=== PATIENT | male | born 1955 | race Caucasian/White ===

== ENCOUNTER 2016-04-01 16:57 | Inpatient (IN) | payer OTHER ==
[~2016-04-01] VITALS: Ht 177.8 cm; Wt 188.9 kg
[~2016-04-01 16:57] MED LIST: CIPR-255 PO; FURO-85 PO; GLC500 PO; INSHI7030 SC; INSUINJ17 SC; LISI-725 PO; MCRK20 PO; METF-384 PO; MICO12CR TOP; SIMV40TA4 PO; TYLOTC500 PO; ZNTT/150 PO
[2016-04-01] MEDS ORDERED: SODIUM CHLORIDE 0.9% 1000ML 1,000 ML IV ONE (18:19)
[2016-04-01] MEDS ORDERED: SODIUM CHLORIDE 0.9% 1000ML 1,000 ML IV STA (18:19)
--- NOTE | 2016-04-01 18:28 | EMERGENCY ROOM VISIT NOTE ---
History Report prepared by Ang: Toro Pendleton Under the Supervision of: Dr. Ludwin Canales M.D. First contact with patient: 18:11 Chief Complaint: NEURO SYMPTOMS Stated Complaint: NUMBNESS IN RT LEG & MOUTH,SWEATING,RT KNEE PAIN History of Present Illness The patient is a 60 year old male who presents to the Emergency Room with complaints of persistent right lower leg numbness for the past several days. The patient feels numb from the right knee down to his foot. He fell a few times because his right knee was giving out on him, but denies any trauma. The patient was also experiencing lip and tongue numbness, which is resolved. The patient denies any arm numbness or difficulty speaking or swallowing. The patient notes that he has been feeling sick for the past three days. He complains of feeling febrile, sweaty, and globally weak. He denies any coughing , chest pain, abdominal pain, nausea, vomiting, or diarrhea. He does note that he becomes short of breath with exertion. The patient admits that he does not drink a lot of fluids. He has a history of diabetes and has been having trouble controlling his blood sugar. The patient's BSG reached 485 after eating earlier today. He notes that his BSG sometimes reaches 375 without eating. The patient has not started any new medications and has been compliant with the medications he does take. The patient was immunized for influenza this year. He denies any history of heart disease. He is not on blood thinners. The patient follows up with Dr. Nevarez. He has a history of shingles. Source of History: patient, family Onset: several days Position: leg (right) Quality: numbness Timing: other (persistent) Associated Symptoms: + SOB, + fevers (subjective), + weakness, No abdominal pain, No chest pain, No cough, No diarrhea, No nausea, No vomiting Review of Systems See HPI for pertinent positives & negatives. A total of 10 systems reviewed and were otherwise negative. Past Medical & Surgical Medical Problems: (1) Diabetes mellitus (2) History of CHF (congestive heart failure) Old medical records were reviewed. Nurse's notes were reviewed and I agree with. Family History Diabetes mellitus Social History Smoking Status: Never Smoker Marital Status: single Housing Status: other Occupation Status: retired Current/Historical Medications Scheduled Ergocalciferol (Vitamin D 33738 Unit), 50,000 UNIT PO WK Furosemide (Lasix), 40 MG PO DAILY Insulin Isophane (Human) (Novolin N Relion), 100 UNITS SQ HS Insulin Isophane (Human) (Novolin N Relion), SQ UD Lisinopril (Zestril), 20 MG PO BID Metformin Hcl (Glucophage), 1,000 MG PO BID Mometasone Furoate (Nasal) (Mometasone Furoate), 2 SPRAYS AMBER DAILY Ranitidine (Zantac), 150 MG PO BID Scheduled PRN Albuterol Hfa (Ventolin Hfa), 2 PUFFS INH Q4H PRN for SOB/Wheezing Oxycodone/Acetaminophen 10MG/325MG (Percocet 10MG/325MG), 1 TAB PO Q6 PRN for Pain Allergies Coded Allergies: Sulfa Antibiotics (Verified Allergy, Intermediate, HIVES, 04/01/16) Physical Exam Vital Signs Date Time Temp Pulse Resp B/P Pulse Ox O2 Delivery O2 Flow Rate FiO2 04/01/16 20:42 76 20 182/81 95 Room Air 04/01/16 20:02 71 18 167/69 95 Room Air 04/01/16 18:55 71 04/01/16 18:30 74 18 165/69 95 04/01/16 17:09 37.0 82 20 152/74 98 Room Air Physical Exam General: Non ill-appearing middle aged male in no acute distress. HEENT: Normal cephalic atraumatic. Pupils are equal round and reactive to light. Extraocular movements are intact. Oropharynx is pink with moist mucous membranes. No swelling of the mouth lips or tongue. Neck: Supple with a midline trachea. No meningeal signs or stiffness, no JVD or bruits. No Stridor. Chest: Clear to auscultation bilaterally. No wheezes or rhonchi. No increased work of breathing. Some scarring present from recent shingles rash. Heart: regular rate and rhythm. Abdomen: Soft nontender, nondistended without rebound guarding or rigidity. Extremities: No cyanosis clubbing or edema. No calf tenderness or assymetry Spine/Back. Non tender to palpation. No CVA tenderness Skin: Good turgor. Chronic skin changes to his legs. Neurologic exam: Cranial nerves two through 12 are intact. Subjective decreased sensation of his right leg below the knee compared to the left. Medical Decision & Procedures ER Provider Diagnostic Interpretation: Radiology results as stated below per my review and radiologist interpretation: CHEST ONE VIEW PORTABLE CLINICAL HISTORY: Chest pain. COMPARISON STUDY: Chest radiograph December 01, 2015. FINDINGS: This exam is compromised by suboptimal penetration related to body habitus and portable technique. There is no evidence of pulmonary edema. There is no lobar consolidation. Cardiomegaly is unchanged. IMPRESSION: No acute findings. No change in appearance of the chest. Stable cardiomegaly. Electronically signed by: Alton Junior M.D. 04/01/2016 6:39 PM Dictated Date/Time: 04/01/2016 6:[address] OF THE HEAD WITHOUT CONTRAST CLINICAL HISTORY: Weakness. Right leg numbness. COMPARISON STUDY: No previous studies for comparison. CT DOSE: 687.98 mGy.cm TECHNIQUE: Helical axial images of the head were obtained without IV contrast. Automated exposure control was utilized for the study. FINDINGS: No acute intracranial hemorrhage, midline shift or mass effect is present. Ventricular system is normal. The basilar cisterns are patent. There are no extra axial collections. Scattered white matter hypodensities are noted including a 1.3 cm hypodensity within the periventricular left frontal lobe. There are no findings to suggest acute dural sinus thrombosis or acute territorial infarct. There are no significant calvarial abnormalities. There is mild polypoid mucosal thickening of the left maxillary sinus. IMPRESSION: 1. No acute intracranial hemorrhage or mass effect. 2. 1.3 cm hypodensity within the periventricular left frontal lobe. This likely reflects small vessel disease although an age indeterminate infarct could appear similar. Electronically signed by: Alton Junior M.D. 04/01/2016 8:51 PM Dictated Date/Time: 04/01/2016 8:46 PM Laboratory Results 04/01/16 18:39 Red Blood Count 5.50, Mean Corpuscular Volume 84.9, Mean Corpuscular Hemoglobin 28.5, Mean Corpuscular Hemoglobin Concent 33.6, Mean Platelet Volume 11.0, Neutrophils (%) (Auto) 73.4, Lymphocytes (%) (Auto) 13.6, Monocytes (%) (Auto) 11.7, Eosinophils (%) (Auto) 0.7, Basophils (%) (Auto) 0.2, Neutrophils # (Auto ) 8.41, Lymphocytes # (Auto) 1.56, Monocytes # (Auto) 1.34, Eosinophils # (Auto ) 0.08, Basophils # (Auto) 0.02 04/01/16 18:39 Test 04/01/16 18:33 04/01/16 18:39 04/01/16 18:42 04/01/16 18:48 Influenza Type A Antigen Neg for Influ A (NEG) Influenza Type B Antigen Neg for Influ B (NEG) White Blood Count 11.46 K/uL (4.8-10.8) Red Blood Count 5.50 M/uL (4.7-6.1) Hemoglobin 15.7 g/dL (14.0-18.0) Hematocrit 46.7 % (42-52) Mean Corpuscular Volume 84.9 fL (80-100) Mean Corpuscular Hemoglobin 28.5 pg (25-34) Mean Corpuscular Hemoglobin Concent 33.6 g/dl (32-36) Platelet Count 250 K/uL (130-400) Mean Platelet Volume 11.0 fL (7.4-10.4) Neutrophils (%) (Auto) 73.4 % Lymphocytes (%) (Auto) 13.6 % Monocytes (%) (Auto) 11.7 % Eosinophils (%) (Auto) 0.7 % Basophils (%) (Auto) 0.2 % Neutrophils # (Auto) 8.41 K/uL (1.4-6.5) Lymphocytes # (Auto) 1.56 K/uL (1.2-3.4) Monocytes # (Auto) 1.34 K/uL (0.11-0.59) Eosinophils # (Auto) 0.08 K/uL (0-0.5) Basophils # (Auto) 0.02 K/uL (0-0.2) RDW Standard Deviation 43.0 fL (36.4-46.3) RDW Coefficient of Variation 13.8 % (11.5-14.5) Immature Granulocyte % (Auto) 0.4 % Immature Granulocyte # (Auto) 0.05 K/uL (0.00-0.02) Anion Gap 10.0 mmol/L (3-11) Est Creatinine Clear Calc Drug Dose 128.9 ml/min Estimated GFR () 95.1 Estimated GFR (Non- 82.0 BUN/Creatinine Ratio 14.9 (10-20) Calcium Level 8.7 mg/dl (8.5-10.1) Magnesium Level 2.3 mg/dl (1.8-2.4) Total Bilirubin 0.2 mg/dl (0.2-1) Direct Bilirubin < 0.1 mg/dl (0-0.2) Aspartate Amino Transf (AST/SGOT) 39 U/L (15-37) Alanine Aminotransferase (ALT/SGPT) 34 U/L (12-78) Alkaline Phosphatase 63 U/L (45-117) Total Protein 7.8 gm/dl (6.4-8.2) Albumin 3.3 gm/dl (3.4-5.0) Lipase 236 U/L (73-393) Bedside Lactic Acid Venous 2.35 mmol/L (0.90-1.70) Bedside Troponin I 0.000 ng/ml (0-0.045) Laboratory studies as stated above per my review. Medications Administered Medications (Trade) Dose Ordered Sig/Fam Route Start Time Stop Time Status Last Admin Dose Admin Sodium Chloride 1,000 ml @ 999 mls/hr Q1H1M STAT IV 04/01/16 18:19 04/01/16 19:19 DC 04/01/16 18:40 999 MLS/HR Sodium Chloride (Nss 1000ml) 1,000 ml @ 200 mls/hr Q5H ONCE IV 04/01/16 18:19 04/01/16 23:18 DC 04/01/16 19:58 200 MLS/HR Dextrose (Dextrose 50% 50ML Syringe) 50 ml NOW STAT IV 04/01/16 18:33 04/01/16 18:35 DC 04/01/16 18:37 50 ML Piperacillin Sod/ Tazobactam Sod (Zosyn Iv) 4.5 gm NOW STAT IV 04/01/16 19:12 04/01/16 19:13 DC 04/01/16 19:58 4.5 GM Dextrose 50 ml 50 ml NOW STAT IV 04/01/16 21:47 04/01/16 21:48 DC 04/01/16 21:49 50 ML Potassium Chloride/Dextrose/ Sod Cl (D5nss + 20meq KCl) 1,000 ml @ 125 mls/hr Q8H IV 04/01/16 21:45 05/01/16 21:44 04/01/16 22:01 125 MLS/HR ECG Indication: weakness Rate (beats per minute): 75 Rhythm: normal sinus Findings: 1st degree AV block, RBBB, no acute ischemic change, no ectopy Comparison ECG Date: 10 August 2014 Change: no significant change ED Course 1811: Past medical records reviewed. The patient was evaluated in room C2b, and a complete history and physical examination were performed. 1818: NSS 1000 ml @ 200 mls/hr, NSS 1000 ml @ 999 mls/hr. 1832: Dextrose 50% 50 ml IV. 1834: Updated the patient. 1902: The patient is starting to feel better. 1911: Zosyn 4.5 gm IV. 2009: [facility] the [facility] The [facility] be [facility]. 2010: Updated the patient. Medical Decision Differential diagnosis includes infection, influenza, sepsis, arrhythmia, diabetic emergency, central neurologic process, electrolyte or metabolic abnormality.l This patient comes in as described above. he doesn't feel well has multiple different complaints. he has had a fever and just felt generally weak for about 3 days. he's also had some tingling in his right leg below the knee and maybe around his mouth at one point. He feels like his knee is giving out on the right. He is a diabetic as well as blood sugars have been high at home. IV access established and was hydrated with with IV normal saline blood cultures were obtained blood sugar was obtained and a fingerstick. Chest x-ray , EKG, and multiple blood testing was obtained. He was reassessed frequently. Shortly after evaluating him, he got diaphoretic rechecked her blood sugar and it was in the 50s he is given amp D50 and felt better. His EKG does not suggest acute coronary syndrome or arrhythmia his white count is elevated. His lactic acid is also mildly elevated. He was given hydration. His right leg look normal initially but started looking a little red and he could have a cellulitis he was given Zosyn 4.5 g IV. CAT scan of his head shows no acute findings there is a questionable frontal lobe finding for old infarct per potentially. He is complaints of tingling in the right leg just below the knee . he is not a TPA candidate due to being well outside the time window and his mild symptoms. He has no significant electrolyte or metabolic abnormalities besides be hypoglycemic. He will be admitted for further treatment and evaluation. He was seen by Dr. Castro in the emergency department. Consults Time Called: 1999 Consulting Physician: Dr[facility] Return[facility] Call: 2009 2009: Discussed the case with Dr. [facility] The patient will be evaluated. Impression Primary Impression: Sepsis Additional Impressions: Weakness Hypoglycemia Cellulitis Scribe Attestation The scribe's documentation has been prepared under my direction and personally reviewed by me in its entirety. I confirm that the note above accurately reflects all work, treatment, procedures, and medical decision making performed by me. Departure Information Dispostion Being Evaluated By Hospitalist Referrals Joe Nevarez M.D. (PCP) Patient Instructions My [facility] Problem Qualifiers
[2016-04-01] MEDS ORDERED: DEXTROSE 50% 50 ML SYR IV STA ×2 (18:33→21:47)
--- NOTE | 2016-04-01 18:40 | DIAGNOSTIC IMAGING REPORT ---
CHEST ONE VIEW PORTABLE CLINICAL HISTORY: Chest pain. COMPARISON STUDY: Chest radiograph December 01, 2015. FINDINGS: This exam is compromised by suboptimal penetration related to body habitus and portable technique. There is no evidence of pulmonary edema. There is no lobar consolidation. Cardiomegaly is unchanged. IMPRESSION: No acute findings. No change in appearance of the chest. Stable cardiomegaly. Electronically signed by: Alton Junior M.D. 04/01/2016 6:39 PM Dictated Date/Time: 04/01/2016 6:38 PM
[2016-04-01 18:56] LABS: BASO % 0.2 %; BASO ABS # 0.02 K/uL (0-0.2); COMPLETE YES; EOS % 0.7 %; HEMATOCRIT 46.7 % (42-52); IG% 0.4 %; LYMPH % 13.6 %; LYMPH ABS # 1.56 K/uL (1.2-3.4); MEAN CELL VOLUME 84.9 fL (80-100); MEAN CORPUSCULAR HEMOGLOBIN 28.5 pg (25-34); MEAN CORPUSCULAR HGB CONC 33.6 g/dl (32-36); MONO % 11.7 %; NEUT % 73.4 %; PLATELET COUNT 250 K/uL (130-400); WHITE BLOOD COUNT 11.46 K/uL (4.8-10.8)
[2016-04-01] MEDS ORDERED: PIPERACILLIN/TAZOBACTAM 4.5 GM/100ML D5W IV STA (19:12)
[2016-04-01] MEDS ORDERED: INSU0.01 SQ ×2 (19:19)
[2016-04-01] MEDS ORDERED: FURO40TA3 PO (19:19)
[2016-04-01] MEDS ORDERED: ERGO500037 PO (19:19)
[2016-04-01] MEDS ORDERED: VNTHFA/IN INH (19:19)
[2016-04-01] MEDS ORDERED: OXYC-106 PO (19:19)
[2016-04-01] MEDS ORDERED: MOME6000 NAE (19:19)
[2016-04-01 19:28] LABS: ALKALINE PHOSPHATASE 63 U/L (45-117); ALT/SGPT 34 U/L (12-78); AST/SGOT 39 U/L (15-37); BLOOD UREA NITROGEN 15 mg/dl (7-18); BUN/CREATININE RATIO 14.9 (10-20); CALCIUM 8.7 mg/dl (8.5-10.1); CARBON DIOXIDE 28 mmol/L (21-32); CHLORIDE 102 mmol/L (98-107); CKMB/CK RATIO 1.3 (0-3.0); GLUCOSE 45 mg/dl (70-99); POTASSIUM 3.5 mmol/L (3.5-5.1); SODIUM 140 mmol/L (136-145)
--- NOTE | 2016-04-01 20:52 | DIAGNOSTIC IMAGING REPORT ---
CT OF THE HEAD WITHOUT CONTRAST CLINICAL HISTORY: Weakness. Right leg numbness. COMPARISON STUDY: No previous studies for comparison. CT DOSE: 687.98 mGy.cm TECHNIQUE: Helical axial images of the head were obtained without IV contrast. Automated exposure control was utilized for the study. FINDINGS: No acute intracranial hemorrhage, midline shift or mass effect is present. Ventricular system is normal. The basilar cisterns are patent. There are no extra axial collections. Scattered white matter hypodensities are noted including a 1.3 cm hypodensity within the periventricular left frontal lobe. There are no findings to suggest acute dural sinus thrombosis or acute territorial infarct. There are no significant calvarial abnormalities. There is mild polypoid mucosal thickening of the left maxillary sinus. IMPRESSION: 1. No acute intracranial hemorrhage or mass effect. 2. 1.3 cm hypodensity within the periventricular left frontal lobe. This likely reflects small vessel disease although an age indeterminate infarct could appear similar. Electronically signed by: Alton Junior M.D. 04/01/2016 8:51 PM Dictated Date/Time: 04/01/2016 8:46 PM
[2016-04-01] MEDS ORDERED: DEXTROSE 50% 50 ML SYR ONE (21:43)
[2016-04-01] MEDS ORDERED: GLUCOSE 10 TABS/TUBE PO PRN (22:00)
[2016-04-01] MEDS ORDERED: ACETAMINOPHEN 325 MG TAB PO PRN (22:00)
[2016-04-01] MEDS ORDERED: GLUCOSE 40% GEL 15 GM TUBE PO PRN (22:00)
[2016-04-01] MEDS ORDERED: ZOLPIDEM TARTRATE 5 MG TAB PO PRN (22:00)
[2016-04-01] MEDS ORDERED: ALUMINUM/MAGNESIUM/SIMETH (MAALOX MAX) 30 ML UDC PO PRN (22:00)
[2016-04-01] MEDS ORDERED: NITROGLYCERIN 0.4 MG SL PER TAB CHARGE SL PRN (22:00)
[2016-04-01] MEDS ORDERED: MAGNESIUM HYDROXIDE SUSP 30 ML UDC PO PRN (22:00)
[2016-04-01] MEDS ORDERED: DEXTROSE 50% 50 ML SYR IV PRN (22:00)
[2016-04-01] MEDS ORDERED: LORAZEPAM 2 MG/ML 1 ML VIAL IV PRN (22:00)
[2016-04-01] MEDS ORDERED: GLUCAGON FOR INJ 1 MG VIAL SQ PRN (22:00)
[2016-04-01] MEDS ORDERED: DiphenhydrAMINE HCL 50 MG/ML VIAL IV PRN (22:00)
[2016-04-01] MEDS ORDERED: PROMETHAZINE HCL INJ 12.5 MG in SODIUM CHLORIDE 0.9% 50ML 50 ML IV PRN (22:00)
[2016-04-01] MEDS ORDERED: ONDANSETRON INJ 2 MG/ML 2 ML VIAL IV PRN (22:00)
[2016-04-01] MEDS: D5NSS + 20MEQ KCL 1,000 ML IV SCH (22:01)
[2016-04-01 22:12] LABS: MAGNESIUM 2.3 mg/dl (1.8-2.4)
[2016-04-01 22:13] LABS: ISTAT ARTERIAL BLOOD GAS HCO3 26 meq/L (19-24); ISTAT ARTERIAL BLOOD GAS PCO2 47 mmHg (35-46); ISTAT ARTERIAL BLOOD GAS PO2 85 mmHg (80-95); ISTAT ARTERIAL BLOOD GAS pH 7.35 (7.35-7.45); ISTAT CARBON DIOXIDE 27 mEq/l (24-31)
[2016-04-01 22:52] LABS: CKMB/CK RATIO 1.5 (0-3.0)
[2016-04-02] VITALS (7 sets, daily range): BP systolic 121–158; BP diastolic 75–91; PULSE 80–96; TEMP 36.4–37; O2SAT 92–98; BMI 59.0
--- NOTE | 2016-04-02 02:42 | History and Physical ---
History & Physical Date & Time of Service: Apr 02, 2016 at 02:30 Chief Complaint: Hypoglycemia, Weakness Primary Care Physician: Joe Nevarez M.D. History of Present Illness Source: patient, family The patient is a 60-year-old male brought to the emergency department with report of right lower leg numbness for the past several days, resolved lip and tongue numbness and intermittent disorientation. He has also in general been feeling febrile, sweaty and generally weak and sick over the past several days. He has been having trouble controlling his diabetic sugar levels, reporting that his blood sugar was as high as 485 today after eating. He also has a resolving case of shingles along his right lateral abdominal area. Past Medical/Surgical History Medical Problems: (1) Diabetes mellitus Status: Chronic (2) History of CHF (congestive heart failure) Status: Chronic Family History Diabetes mellitus Social History Smoking Status: Never Smoker Smokeless Tobacco Use: No Alcohol Use: none Drug Use: none Marital Status: single Occupational Status: retired Immunizations History of Influenza Vaccine: Yes History of Tetanus Vaccine?: Yes Tetanus Immunization Date: Aug 28, 2007 History of Pneumococcal: Yes History of Hepatitis B Vaccine: No Multi-Drug Resistant Organisms History of MDRO: No Allergies Coded Allergies: Sulfa Antibiotics (Verified Allergy, Intermediate, HIVES, 04/01/16) Home Medications Scheduled Ergocalciferol (Vitamin D 20462 Unit), 50,000 UNIT PO WK Furosemide (Lasix), 40 MG PO DAILY Insulin Isophane (Human) (Novolin N Relion), 100 UNITS SQ HS Insulin Isophane (Human) (Novolin N Relion), SQ UD Lisinopril (Zestril), 20 MG PO BID Metformin Hcl (Glucophage), 1,000 MG PO BID Mometasone Furoate (Nasal) (Mometasone Furoate), 2 SPRAYS AMBER DAILY Ranitidine (Zantac), 150 MG PO BID Scheduled PRN Albuterol Hfa (Ventolin Hfa), 2 PUFFS INH Q4H PRN for SOB/Wheezing Oxycodone/Acetaminophen 10MG/325MG (Percocet 10MG/325MG), 1 TAB PO Q6 PRN for Pain Review of Systems The patient denies chest pain, palpitations, shortness of breath, cough, lower extremity swelling, vision change, hearing change, sore throat, fevers, chills, weight change, vomiting, abdominal pain, pelvic pain, blood in urine or stool, dysuria, urinary frequency or urgency, headache, memory loss, rash, abnormal bruising or bleeding, imbalance, focal weakness, arthralgias or myalgias, back or neck pain, night sweats, or allergy symptoms. The review of systems is otherwise negative other than for that already noted above, and at least 10 systems have been reviewed. Physical Exam Vital Signs Date Time Temp Pulse Resp B/P Pulse Ox O2 Delivery O2 Flow Rate FiO2 04/02/16 00:55 76 20 181/82 95 Room Air 04/01/16 23:07 76 20 178/78 95 Room Air 04/01/16 22:02 76 20 181/78 95 Room Air 04/01/16 20:42 76 20 182/81 95 Room Air 04/01/16 20:02 71 18 167/69 95 Room Air 04/01/16 18:55 71 04/01/16 18:30 74 18 165/69 95 04/01/16 17:09 37.0 82 20 152/74 98 Room Air The patient is awake, well-developed and adequately nourished, alert and oriented 3, normocephalic and atraumatic, lying in bed , with intermittent episodes of sweating and disorientation. HEENT--PERRL, EOMI, mucous membranes and oropharynx dry. Neck--supple, no JVD or bruits, thyroid normal, trachea midline, no adenopathy. Heart--normal S1 and S2, no extra beats, no murmurs, rubs or gallops. Lungs--clear bilaterally with good air movement, no respiratory distress, no accessory muscle use. Abdomen--normal bowel sounds and soft, nontender and nondistended, no hernias or masses, no organomegaly and morbidly obese. Extremities--no cyanosis, clubbing or edema. There are good distal pulses b/l. Dermatologic--normal skin turgor, normal color, warm and dry, no abnormal lymph nodes, no rash. Neurologic--cranial nerves II through XII grossly intact, motor and sensory examination normal. Rheumatologic--normal range of motion, nontender, muscles and joints. Psychiatric--normal affect. Diagnostics Laboratory Results Results Past 24 Hours Test 04/01/16 18:33 04/01/16 18:35 04/01/16 18:39 04/01/16 18:42 Range/Units Bedside Glucose 51 47 70-99 mg/dl Influenza Type A Antigen Neg for Influ A NEG Influenza Type B Antigen Neg for Influ B NEG White Blood Count 11.46 4.8-10.8 K/uL Red Blood Count 5.50 4.7-6.1 M/uL Hemoglobin 15.7 14.0-18.0 g/dL Hematocrit 46.7 42-52 % Mean Corpuscular Volume 84.9 80-100 fL Mean Corpuscular Hemoglobin 28.5 25-34 pg Mean Corpuscular Hemoglobin Concent 33.6 32-36 g/dl Platelet Count 250 130-400 K/uL Mean Platelet Volume 11.0 7.4-10.4 fL Neutrophils (%) (Auto) 73.4 % Lymphocytes (%) (Auto) 13.6 % Monocytes (%) (Auto) 11.7 % Eosinophils (%) (Auto) 0.7 % Basophils (%) (Auto) 0.2 % Neutrophils # (Auto) 8.41 1.4-6.5 K/uL Lymphocytes # (Auto) 1.56 1.2-3.4 K/uL Monocytes # (Auto) 1.34 0.11-0.59 K/uL Eosinophils # (Auto) 0.08 0-0.5 K/uL Basophils # (Auto) 0.02 0-0.2 K/uL RDW Standard Deviation 43.0 36.4-46.3 fL RDW Coefficient of Variation 13.8 11.5-14.5 % Immature Granulocyte % (Auto) 0.4 % Immature Granulocyte # (Auto) 0.05 0.00-0.02 K/uL Sodium Level 140 136-145 mmol/L Potassium Level 3.5 3.5-5.1 mmol/L Chloride Level 102 98-107 mmol/L Carbon Dioxide Level 28 21-32 mmol/L Anion Gap 10.0 3-11 mmol/L Blood Urea Nitrogen 15 7-18 mg/dl Creatinine 1.00 0.60-1.40 mg/dl Est Creatinine Clear Calc Drug Dose 128.9 ml/min Estimated GFR () 95.1 Estimated GFR (Non- 82.0 BUN/Creatinine Ratio 14.9 10-20 Random Glucose 45 70-99 mg/dl Calcium Level 8.7 8.5-10.1 mg/dl Magnesium Level 2.3 1.8-2.4 mg/dl Total Bilirubin 0.2 0.2-1 mg/dl Direct Bilirubin < 0.1 0-0.2 mg/dl Aspartate Amino Transf (AST/SGOT) 39 15-37 U/L Alanine Aminotransferase (ALT/SGPT) 34 12-78 U/L Alkaline Phosphatase 63 45-117 U/L Total Creatine Kinase 412 39-308 U/L Creatine Kinase MB 5.3 0.5-3.6 ng/ml Creatine Kinase MB Ratio 1.3 0-3.0 Total Protein 7.8 6.4-8.2 gm/dl Albumin 3.3 3.4-5.0 gm/dl Lipase 236 73-393 U/L Bedside Lactic Acid Venous 2.35 0.90-1.70 mmol/L Test 04/01/16 18:46 04/01/16 18:48 04/01/16 21:42 04/01/16 21:58 Range/Units Bedside Glucose 129 40 70-99 mg/dl Bedside Troponin I 0.000 0-0.045 ng/ml Bedside Blood Gas pH (LAB) 7.35 7.35-7.45 Bedside Blood Gas pCO2 (LAB) 47 35-46 mmHg Bedside Blood Gas pO2 (LAB) 85 80-95 mmHg Bedside Blood Gas HCO3 (LAB) 26 19-24 meq/L Bedside Blood Gas Total CO2 27 24-31 mEq/l Bedside Blood Gas Base Excess (LAB) 0.0 -9-1.8 meq/L Bedside Blood Gas O2 Saturation 96.0 90-95 % Test 04/01/16 22:05 04/01/16 22:20 04/01/16 22:46 Range/Units Bedside Glucose 105 116 70-99 mg/dl Total Creatine Kinase 438 39-308 U/L Creatine Kinase MB 6.5 0.5-3.6 ng/ml Creatine Kinase MB Ratio 1.5 0-3.0 Troponin I < 0.015 0-0.045 ng/ml Microbiology Results 04/01/16 Blood Culture, Received Pending 04/01/16 Blood Culture, Received Pending Diagnostic Radiology Patient Name: KELBYALEXIS Pena JR Unit Number: [id number] Dictated: 04/01/162045 Transcribed: 04/01/162045 JA Printed Date/Time: [~ rep prt dt]/[~ rep prt tm] [~ rep ct labl] - [~ rep ct ivnm] [facility] [place] [address] Dictated: 04/01/162045 Transcribed: 04/01/162045 JA Printed Date/Time: [~ rep prt dt]/[~ rep prt tm] [~ rep ct labl] - [~ rep ct ivnm] CT OF THE HEAD WITHOUT CONTRAST CLINICAL HISTORY: Weakness. Right leg numbness. COMPARISON STUDY: No previous studies for comparison. CT DOSE: 687.98 mGy.cm TECHNIQUE: Helical axial images of the head were obtained without IV contrast. Automated exposure control was utilized for the study. FINDINGS: No acute intracranial hemorrhage, midline shift or mass effect is present. Ventricular system is normal. The basilar cisterns are patent. There are no extra axial collections. Scattered white matter hypodensities are noted including a 1.3 cm hypodensity within the periventricular left frontal lobe. There are no findings to suggest acute dural sinus thrombosis or acute territorial infarct. There are no significant calvarial abnormalities. There is mild polypoid mucosal thickening of the left maxillary sinus. IMPRESSION: 1. No acute intracranial hemorrhage or mass effect. 2. 1.3 cm hypodensity within the periventricular left frontal lobe. This likely reflects small vessel disease although an age indeterminate infarct could appear similar. Electronically signed by: Alton Junior M.D. 04/01/2016 8:51 PM Dictated Date/Time: 04/01/2016 8:46 PM The status of this report is Signed. Draft = Not yet reviewed or approved by Radiologist. Signed = Reviewed and approved by Radiologist. <AttendingPhy></AttendingPhy> <FamilyPhy>Joe Nevarez M.D.</FamilyPhy > <PrimaryPhy>Joe Nevarez M.D.</PrimaryPhy> <UnitNumber>[id number]</ UnitNumber> <VisitNumber>[id number]</VisitNumber> <PatientName>ALEXIS LAMA JR</PatientName> <DateOfBirth>1955</DateOfBirth> <Location>[facility]</ Location> <ServiceDate>04/01/16</ServiceDate> <MNE>ESINDI</MNE> <OrderingPhy> Ludwin Canales M.D.</OrderingPhy> <OrderingPhyMNE>f rep ord dr eddy</ OrderingPhyMNE> <DictatingPhyMNE>f rep dict dr eddy</DictatingPhyMNE> <CCListMNE> f rep ct mne</CCListMNE> <AdmittingPhyMNE>f pt admit dr eddy</AdmittingPhyMNE> < AttendingPhyMNE>f pt attend dr eddy</AttendingPhyMNE> <ConsultingPhyMNE>f pt consult dr eddy</ConsultingPhyMNE> <FamilyPhyMNE>f pt fam dr eddy</FamilyPhyMNE> <OtherPhyMNE>f pt other dr eddy</OtherPhyMNE> < PrimaryPhyMNE>f pt prim care dr eddy</PrimaryPhyMNE> <ReferringPhyMNE>f pt referring dr eddy</ReferringPhyMNE> Patient Name: ALEXIS LAMA JR Unit Number: [id number] Dictated: 04/01/161837 Transcribed: 04/01/161837 VAUGHN Printed Date/Time: [~ rep prt dt]/[~ rep prt tm] [~ rep ct labl] - [~ rep ct ivnm] [facility] [place] [address] Dictated: 04/01/161837 Transcribed: 04/01/161837 VAUGHN Printed Date/Time: [~ rep prt dt]/[~ rep prt tm] [~ rep ct labl] - [~ rep ct ivnm] [~ rep ct add3]] CHEST ONE VIEW PORTABLE CLINICAL HISTORY: Chest pain. COMPARISON STUDY: Chest radiograph December 01, 2015. FINDINGS: This exam is compromised by suboptimal penetration related to body habitus and portable technique. There is no evidence of pulmonary edema. There is no lobar consolidation. Cardiomegaly is unchanged. IMPRESSION: No acute findings. No change in appearance of the chest. Stable cardiomegaly. Electronically signed by: Alton Junior M.D. 04/01/2016 6:39 PM Dictated Date/Time: 04/01/2016 6:38 PM The status of this report is Signed. Draft = Not yet reviewed or approved by Radiologist. Signed = Reviewed and approved by Radiologist. <AttendingPhy></AttendingPhy> <FamilyPhy>Joe Nevarez M.D.</FamilyPhy > <PrimaryPhy>oJe Nevarez M.D.</PrimaryPhy> <UnitNumber>[id number]</ UnitNumber> <VisitNumber>[id number]</VisitNumber> <PatientName>ALEXIS LAMA JR</PatientName> <DateOfBirth>1955</DateOfBirth> <Location>[facility]</ Location> <ServiceDate>04/01/16</ServiceDate> <MNE>ESINDI</MNE> <OrderingPhy> Ludwin Canales M.D.</OrderingPhy> <OrderingPhyMNE>f rep ord dr eddy</ OrderingPhyMNE> <DictatingPhyMNE>f rep dict dr eddy</DictatingPhyMNE> <CCListMNE> f rep ct surjit</CCListMNE> <AdmittingPhyMNE>f pt admit dr eddy</AdmittingPhyMNE> < AttendingPhyMNE>f pt attend dr eddy</AttendingPhyMNE> <ConsultingPhyMNE>f pt consult dr eddy</ConsultingPhyMNE> <FamilyPhyMNE>f pt fam dr eddy</FamilyPhyMNE> <OtherPhyMNE>f pt other dr eddy</OtherPhyMNE> < PrimaryPhyMNE>f pt prim care dr eddy</PrimaryPhyMNE> <ReferringPhyMNE>f pt referring dr eddy</ReferringPhyMNE> EKG EKG shows normal sinus rhythm at 75 bpm, with first-degree heart block, right bundle branch block, left axis deviation, and no acute ST-T changes. Impression Assessment and Plan Hypoglycemia/insulin requiring diabetes mellitus--the patient had a number of episodes of sweating with disorientation and fatigue while in the emergency department there were associated with low blood sugar. He has been on Novolin and 100 units subcutaneous at bedtime, and reports a few months ago he was placed on regular insulin which she's been taking 100 units of regular at breakfast then uses a sliding scale for later on in the day. He recently had changed over to a high protein diet with considerable restriction and calorie intake without talking to his PCP, was likely has contributed to events of low blood sugar. He will be admitted to the telemetry unit for close monitoring. Will hold his Novolin N 100 units at bedtime, his regular insulin 100 units in the morning at breakfast, and his regular sliding scale throughout the day. He' ll be placed on Accu-Cheks before meals and at bedtime with NovoLog coverage. He has received an amp of D50 in the ED, has been given several sandwiches, and has been placed on D5 normal saline with potassium chloride 20 mEq at 125 ML's per hour. The question is whether the patient may have given himself some additional insulin inadvertently while disoriented which may have made his sugars significantly lower. Will also hold metformin 1000 mg by mouth twice a day. Right lower extremity numbness/1.3 cm left frontal lobe indeterminate lesion--we 'll order an MRI the brain to further assess the possibility of acute/subacute infarct. If this is negative, he will need a workup to look for a lower extremity radiculopathy, although he denies any low back pain. Hypertension/CHF continue lisinopril 20 mg by mouth twice a day. Hold furosemide 40 mg by mouth daily. GERD--continue ranitidine 150 mg by mouth twice a day. Seasonal allergy--Flonase nasal spray 2 sprays each nostril daily. Level of Care Telemetry Advanced Directives Existing Advance Directive: No Existing Living Will: No Existing Power of Optics Engineer: No Resuscitation Status FULL RESUSCITATION VTE Prophylaxis VTE Risk Assessment Done? Y/N: Yes Risk Level: Moderate Given or contraindicated: SCD's Social Service Consult None Apply
[2016-04-02] MEDS: MoRPHine SULFATE 2 MG/ML CARP IV PRN ×2 (03:50→07:35)
--- NOTE | 2016-04-02 06:11 | DIAGNOSTIC IMAGING REPORT ---
MRI OF THE BRAIN WITHOUT AND WITH IV CONTRAST CLINICAL HISTORY: Weakness, right leg numbness, abnormal CT scan with left frontal lobe lesion COMPARISON STUDY: CT scan dated 04/01/2016 TECHNIQUE: MRI of the brain was performed from the vertex to the skull base utilizing various T1 and T2 weighted sequences. Following the IV administration of 17.5 mL of Gadavist contrast, additional enhanced images were obtained. FINDINGS: Sagittal T1, axial diffusion, proton density and T2 weighted axial, coronal FLAIR, and pre and post axial T1-weighted images were acquired. These were supplemented with post gadolinium coronal T1 weighted images. No intra or extra-axial mass lesions are visualized. Axial diffusion-weighted images reveal no evidence of acute or subacute infarction. There is no evidence of ventricular dilatation. Proton density T2-weighted and FLAIR images reveal scattered foci of increased T2 signal within the white matter, likely on a small vessel basis. There are no abnormal flow voids. There is no evidence of pathologic enhancement. No frontal lobe masses or acute infarcts are visualized. IMPRESSION: No acute intracranial findings. No evidence of intracranial mass. No evidence of acute or subacute infarction. Electronically signed by: Nathaniel Coleman M.D. 04/02/2016 6:10 AM Dictated Date/Time: 04/02/2016 6:07 AM
[2016-04-02 07:02] LABS: ISTAT CREATININE 0.8 mg/dl (0.6-1.3); ISTAT IONIZED CALCIUM 1.1 mmol/l (1.12-1.32)
[2016-04-02 07:17] LABS: BASO % 0.3 %; BASO ABS # 0.02 K/uL (0-0.2); COMPLETE YES; EOS % 1.5 %; HEMATOCRIT 46.1 % (42-52); IG% 0.6 %; LYMPH % 21.9 %; LYMPH ABS # 1.57 K/uL (1.2-3.4); MEAN CORPUSCULAR HEMOGLOBIN 28.4 pg (25-34); NEUT % 64.7 %; PLATELET COUNT 219 K/uL (130-400); RED BLOOD COUNT 5.36 M/uL (4.7-6.1); WHITE BLOOD COUNT 7.16 K/uL (4.8-10.8)
[2016-04-02 07:34] LABS: BLOOD UREA NITROGEN 14 mg/dl (7-18); CALCIUM 8.3 mg/dl (8.5-10.1); CARBON DIOXIDE 26 mmol/L (21-32); CHLORIDE 106 mmol/L (98-107); CREATININE 0.76 mg/dl (0.60-1.40); GLUCOSE 78 mg/dl (70-99); SODIUM 140 mmol/L (136-145)
[2016-04-02] MEDS: D5NSS + 20MEQ KCL 1,000 ML IV SCH (07:35)
[2016-04-02] MEDS: FLUTICASONE PROPIONATE NA SPR 16 GM BTL NAE SCH (07:40)
[2016-04-02] MEDS: RANITIDINE HCL 150 MG TAB PO SCH ×2 (07:42→21:35)
[2016-04-02] MEDS: LISINOPRIL 20 MG TAB PO SCH ×2 (07:42→21:35)
[2016-04-02] MEDS: INSULIN ASPART 100 UNITS/ML 3 ML PEN SC SCH ×4 (07:46→21:37)
[2016-04-02 10:47] LABS: MAGNESIUM 2.3 mg/dl (1.8-2.4)
[2016-04-02 11:15] LABS: POTASSIUM 4.6 mmol/L (3.5-5.1)
[2016-04-02] MEDS ORDERED: HYDROmorphone INJ 1 MG/ML SYR IV PRN (11:30)
--- NOTE | 2016-04-02 11:44 | Progress Note ---
Progress Note Date of Service Apr 02, 2016. Progress Note Patient admitted early this am. See H&P. Patient uses oxycodone 10/325mg at home for lower extremity neuropathy, he is requesting. Also, there is noted lower extremity erythema. The patient reports having frequent cellulitis. He was given a single dose of Zosyn in the ED for this reason. I will continue IV Zosyn and add Vanco for diabetic cellulitis.
[2016-04-02] MEDS: OXYCODONE/ACETAMINOPHEN 10/325MG TAB PO PRN ×2 (11:59→16:35)
[2016-04-02] MEDS ORDERED: PIPERACILL/TAZOBAC CONSULT ACTIVE PRN (12:00)
[2016-04-02] MEDS ORDERED: VANCOMYCIN CONSULT ACTIVE PRN (12:00)
[2016-04-02] MEDS ORDERED: VANCOMYCIN INJ 2,800 MG in SODIUM CHLORIDE 0.9% 500ML 500 ML IV SCH (12:30)
[2016-04-02] MEDS ORDERED: PIPERACILL/TAZOBAC IV 3.375 GM in DEXTROSE 5% 100ML IV ONE (12:30)
--- NOTE | 2016-04-02 12:38 | Pharmacy Progress Note ---
Pharmacy Antibiotic Consult Date of Service: Apr 02, 2016. Pharmacy Dosing Scope Pharmacy is consulted to initiate vancomycin and Zosyn IV dosing therapy, order appropriate labs and adjust drug dose/frequency. Subjective The patient is a 60 year old male admitted on Apr 01, 2016 at 21:53. Objective Height (Feet): 5 Height (Inches): 10.00 Weight (Kilograms): 186.000 Lab Results (24hrs): Laboratory Tests Test 04/01/16 18:39 04/02/16 06:42 BUN/Creatinine Ratio 14.9 18.0 Blood Urea Nitrogen 15 mg/dl 14 mg/dl Creatinine 1.00 mg/dl 0.76 mg/dl White Blood Count 11.46 K/uL 7.16 K/uL Red Blood Count 5.50 M/uL 5.36 M/uL Hemoglobin 15.7 g/dL 15.2 g/dL Hematocrit 46.7 % 46.1 % Mean Corpuscular Volume 84.9 fL 86.0 fL Mean Corpuscular Hemoglobin 28.5 pg 28.4 pg Mean Corpuscular Hemoglobin Concent 33.6 g/dl 33.0 g/dl Platelet Count 250 K/uL 219 K/uL Mean Platelet Volume 11.0 fL 12.0 fL Neutrophils (%) (Auto) 73.4 % 64.7 % Lymphocytes (%) (Auto) 13.6 % 21.9 % Monocytes (%) (Auto) 11.7 % 11.0 % Eosinophils (%) (Auto) 0.7 % 1.5 % Basophils (%) (Auto) 0.2 % 0.3 % Neutrophils # (Auto) 8.41 K/uL 4.63 K/uL Lymphocytes # (Auto) 1.56 K/uL 1.57 K/uL Monocytes # (Auto) 1.34 K/uL 0.79 K/uL Eosinophils # (Auto) 0.08 K/uL 0.11 K/uL Basophils # (Auto) 0.02 K/uL 0.02 K/uL Micro Results: Blood cx X 2 are pending Recent Pertinent Medications Zosyn 4.5gm IV given in ER on 04/01 at 2000. Assessment & Plan Pt with hx of DM2, CHF, and cellulitis, admitted with hypoglycemia, feeling sick , afebrile, normal WBC count. He is ordered vancomycin and Zosyn today empirically for LLE cellulitis in a diabetic pt. Dosing is on the conservative side due to BMI = 58.8kg/m2 & concern for accumulation. Will reevaluate when trough obtained tomorrow. * Vancomycin: * Loading dose: 2800 mg IV X 1 dose (15mg/kg) then: * 2500 mg IV every 10 hours (~13mg/kg). * Kinetics estimates: t-1/2= 7.3hrs, Ke = 0.094 hr-1, Vd = 0.55L/kg (BMI > 40kg/ m2) * Goal trough level estimate: between 15 - 20 mcg/mL. * Peak and trough or random level has been ordered for: 04/03 prior to 1800 dose. Zosyn 3.375gm IV x 1 over 30min, then 3.375gm IV q 8h extended infusion for CrCl > 20ml/min. Pharmacy will continue to follow and will adjust dose/frequency as necessary. Thank you
[2016-04-02] MEDS ORDERED: PNEUMOCOCCAL POLYSACCHARIDES 25 MCG/0.5 ML VIAL/SYR IM. ONE (13:45)
[2016-04-02] MEDS ORDERED: PNEUMOCOCCAL ADMINISTRATION CHARGE ONE (13:45)
--- NOTE | 2016-04-02 13:58 | Hospitalist Progress Note ---
Hospitalist Progress Note Date of Service Apr 02, 2016. Subjective Pt evaluation today including: conversation w/ patient, physical exam, chart review, lab review, review of studies, review of inpatient medication list Patient is doing well. His sugars have stabilized. Pain in his lower extremities has improved. He feels he has cellulitis in both legs. I do note the erythema (which is mild to my inspection) b/l. I told him the results of his brain MRI (which was unremarkable). Additional Comments: A 10 system review was performed and all were negative. Positives were placed in the subjective section. Objective Vital Signs Date Time Temp Pulse Resp B/P Pulse Ox O2 Delivery O2 Flow Rate FiO2 04/02/16 12:00 Room Air 04/02/16 12:00 37.0 88 20 121/85 93 Room Air 04/02/16 06:41 76 18 148/61 96 04/02/16 06:23 75 04/02/16 06:20 36.9 80 27 158/91 04/02/16 05:11 80 96 3.0 04/02/16 03:55 80 24 146/81 94 Room Air 04/02/16 00:55 76 20 181/82 95 Room Air 04/01/16 23:07 76 20 178/78 95 Room Air 04/01/16 22:02 76 20 181/78 95 Room Air 04/01/16 20:42 76 20 182/81 95 Room Air 04/01/16 20:02 71 18 167/69 95 Room Air 04/01/16 18:55 71 04/01/16 18:30 74 18 165/69 95 04/01/16 17:09 37.0 82 20 152/74 98 Room Air Physical Exam Notes: GEN: Awake, alert, and oriented x 3. Not in acute distress HEENT: Tm's intact, no inflammation, EOMI, PERRLA, MMM Neck: Soft, supple Lungs: CTA b/l, no r/r/w Heart: REG, nrl S1S2 without murmurs, rubs or gallops Abdomen: Soft, NT, ND, + BS EXT: No C/C. + 1 pitting edema at the ankles b/l. NEURO: CN's II-XII grossly intact, non-focal Skin: warm, dry, no rashes, b/l lower extremities from dorsum of feet to just below knee shows a uniform mild erythema. The area of erythema is tender to the touch. PSYCH: pleasant, cooperative, no signs of significant anxiety or depression. Laboratory Results Last 24 Hours Test 04/01/16 18:33 04/01/16 18:35 04/01/16 18:39 04/01/16 18:42 Bedside Glucose 51 mg/dl 47 mg/dl Influenza Type A Antigen Neg for Influ A Influenza Type B Antigen Neg for Influ B White Blood Count 11.46 K/uL Red Blood Count 5.50 M/uL Hemoglobin 15.7 g/dL Hematocrit 46.7 % Mean Corpuscular Volume 84.9 fL Mean Corpuscular Hemoglobin 28.5 pg Mean Corpuscular Hemoglobin Concent 33.6 g/dl Platelet Count 250 K/uL Mean Platelet Volume 11.0 fL Neutrophils (%) (Auto) 73.4 % Lymphocytes (%) (Auto) 13.6 % Monocytes (%) (Auto) 11.7 % Eosinophils (%) (Auto) 0.7 % Basophils (%) (Auto) 0.2 % Neutrophils # (Auto) 8.41 K/uL Lymphocytes # (Auto) 1.56 K/uL Monocytes # (Auto) 1.34 K/uL Eosinophils # (Auto) 0.08 K/uL Basophils # (Auto) 0.02 K/uL RDW Standard Deviation 43.0 fL RDW Coefficient of Variation 13.8 % Immature Granulocyte % (Auto) 0.4 % Immature Granulocyte # (Auto) 0.05 K/uL Sodium Level 140 mmol/L Potassium Level 3.5 mmol/L Chloride Level 102 mmol/L Carbon Dioxide Level 28 mmol/L Anion Gap 10.0 mmol/L Blood Urea Nitrogen 15 mg/dl Creatinine 1.00 mg/dl Est Creatinine Clear Calc Drug Dose 128.9 ml/min Estimated GFR () 95.1 Estimated GFR (Non- 82.0 BUN/Creatinine Ratio 14.9 Random Glucose 45 mg/dl Calcium Level 8.7 mg/dl Magnesium Level 2.3 mg/dl Total Bilirubin 0.2 mg/dl Direct Bilirubin < 0.1 mg/dl Aspartate Amino Transf (AST/SGOT) 39 U/L Alanine Aminotransferase (ALT/SGPT) 34 U/L Alkaline Phosphatase 63 U/L Total Creatine Kinase 412 U/L Creatine Kinase MB 5.3 ng/ml Creatine Kinase MB Ratio 1.3 Total Protein 7.8 gm/dl Albumin 3.3 gm/dl Lipase 236 U/L Bedside Lactic Acid Venous 2.35 mmol/L Test 04/01/16 18:46 04/01/16 18:48 04/01/16 21:42 04/01/16 21:58 Bedside Glucose 129 mg/dl 40 mg/dl Bedside Troponin I 0.000 ng/ml Bedside Blood Gas pH (LAB) 7.35 Bedside Blood Gas pCO2 (LAB) 47 mmHg Bedside Blood Gas pO2 (LAB) 85 mmHg Bedside Blood Gas HCO3 (LAB) 26 meq/L Bedside Blood Gas Total CO2 27 mEq/l Bedside Blood Gas Base Excess (LAB) 0.0 meq/L Bedside Blood Gas O2 Saturation 96.0 % Test 04/01/16 22:05 04/01/16 22:20 04/01/16 22:46 04/02/16 01:13 Bedside Glucose 105 mg/dl 116 mg/dl Total Creatine Kinase 438 U/L Creatine Kinase MB 6.5 ng/ml Creatine Kinase MB Ratio 1.5 Troponin I < 0.015 ng/ml Bedside Hemoglobin 16.0 g/dl Bedside Hematocrit 47 % Bedside Sodium 142 mEq/L Bedside Potassium 4.5 mEq/L Bedside Chloride 102 mEq/L Bedside Total CO2 31 mEq/l Anion Gap 15.0 mmol/L Bedside Blood Urea Nitrogen 16 mg/dl Bedside Creatinine 0.8 mg/dl Bedside Glucose (other) 71 mg/dl Bedside Ionized Calcium (Evette) 1.10 mmol/l Test 04/02/16 06:42 04/02/16 10:06 04/02/16 10:32 04/02/16 11:11 White Blood Count 7.16 K/uL Red Blood Count 5.36 M/uL Hemoglobin 15.2 g/dL Hematocrit 46.1 % Mean Corpuscular Volume 86.0 fL Mean Corpuscular Hemoglobin 28.4 pg Mean Corpuscular Hemoglobin Concent 33.0 g/dl Platelet Count 219 K/uL Mean Platelet Volume 12.0 fL Neutrophils (%) (Auto) 64.7 % Lymphocytes (%) (Auto) 21.9 % Monocytes (%) (Auto) 11.0 % Eosinophils (%) (Auto) 1.5 % Basophils (%) (Auto) 0.3 % Neutrophils # (Auto) 4.63 K/uL Lymphocytes # (Auto) 1.57 K/uL Monocytes # (Auto) 0.79 K/uL Eosinophils # (Auto) 0.11 K/uL Basophils # (Auto) 0.02 K/uL RDW Standard Deviation 43.7 fL RDW Coefficient of Variation 13.9 % Immature Granulocyte % (Auto) 0.6 % Immature Granulocyte # (Auto) 0.04 K/uL Sodium Level 140 mmol/L Potassium Level mmol/L 4.6 mmol/L Chloride Level 106 mmol/L Carbon Dioxide Level 26 mmol/L Anion Gap 8.0 mmol/L Blood Urea Nitrogen 14 mg/dl Creatinine 0.76 mg/dl Est Creatinine Clear Calc Drug Dose 175.3 ml/min Estimated GFR () 115.7 Estimated GFR (Non- 99.9 BUN/Creatinine Ratio 18.0 Random Glucose 78 mg/dl Calcium Level 8.3 mg/dl Magnesium Level mg/dl 2.3 mg/dl Total Creatine Kinase U/L 377 U/L Creatine Kinase MB 6.0 ng/ml Creatine Kinase MB Ratio Troponin I < 0.015 ng/ml Chemistry Specimen Hemolysis Hepatitis C Antibody Screen NEG Bedside Glucose 166 mg/dl Assessment and Plan 1) Hypoglycemia, symptomatic - resolving. I am likely able to D/C the IV dextrose. 2) Type II DM - On sliding scale for coverage if and when he becomes elevated. 3) Cellulitis b/l lower extremities - I adjusted pain medication and ordered IV Zosyn and IV Vanco. Pharmacist is managing these which is much appreciated. He did have an elevated white count and mildly elevated lactic acid. Blood cultures are pending. 4) Right lower extremity paraesthesia and transient weakness - MRI of the brain was normal. I ordered MRI of the L-S spine to see if there is nerve compression. 5) GERD 6) Morbid Obesity 7) DVT prophylaxis - I will replace the TEDs and SCDs with sub-q lovenox due to the pain associated with the cellulitis. Continued [facility] stay due to: multiple IV medications needed Discharge planning: home with home health
[2016-04-02 14:10] LABS: URINE APPEARANCE CLEAR (CLEAR); URINE BILIRUBIN NEG (NEG); URINE COLOR YELLOW; URINE NITRITE NEG (NEG); URINE PH 6.5 (4.5-7.5); URINE SPECIFIC GRAVITY 1.016 (1.000-1.030); UROBILINOGEN NEG (NEG)
[2016-04-02 14:13] LABS: MANUAL MICROSCOPIC REQUIRED? NO; REVIEW REQ? NO
[2016-04-02 14:37] LABS: CKMB/CK RATIO 1.5 (0-3.0)
[2016-04-02 14:46] LABS: PARTIAL THROMBOPLASTIN RATIO 1.1; PROTHROMBIN TIME (PATIENT) 11.2 SECONDS (9.0-12.0)
[2016-04-02] MEDS ORDERED: ENOXAPARIN 40 MG/0.4 ML SYR SQ SCH (16:00)
[2016-04-02] MEDS: PIPERACILL/TAZOBAC IV 3.375 GM in DEXTROSE 5% 100ML 100 ML IV SCH (17:39)
[2016-04-02] MEDS: VANCOMYCIN INJ 2,500 MG in SODIUM CHLORIDE 0.9% 500ML 500 ML IV SCH (22:15)
[2016-04-03] MEDS: PIPERACILL/TAZOBAC IV 3.375 GM in DEXTROSE 5% 100ML 100 ML IV SCH ×3 (01:59→17:50)
[2016-04-03 04:22] VITALS: BP 126/70; PULSE 84; TEMP 36.3; O2SAT 97
[2016-04-03 06:59] LABS: BASO % 0.7 %; BASO ABS # 0.04 K/uL (0-0.2); COMPLETE YES; HEMATOCRIT 45.2 % (42-52); IG% 0.5 %; LYMPH % 15.3 %; LYMPH ABS # 0.92 K/uL (1.2-3.4); MEAN CELL VOLUME 87.9 fL (80-100); MEAN CORPUSCULAR HEMOGLOBIN 28.6 pg (25-34); MEAN CORPUSCULAR HGB CONC 32.5 g/dl (32-36); MONO % 13.6 %; NEUT % 64.9 %; PLATELET COUNT 206 K/uL (130-400); PLT ESTIMATE NORMAL; RED BLOOD COUNT 5.14 M/uL (4.7-6.1); VACUOLIZATION 1+; WHITE BLOOD COUNT 6.03 K/uL (4.8-10.8)
[2016-04-03 07:54] LABS: BUN/CREATININE RATIO 15.1 (10-20); CALCIUM 8.5 mg/dl (8.5-10.1); CREATININE 0.88 mg/dl (0.60-1.40); MAGNESIUM 2.3 mg/dl (1.8-2.4); POTASSIUM 4.4 mmol/L (3.5-5.1)
[2016-04-03 08:00] VITALS: BP 144/81; PULSE 92; TEMP 36.9; O2SAT 94
[2016-04-03] MEDS: INSULIN ASPART 100 UNITS/ML 3 ML PEN SC SCH ×4 (08:00→22:01)
[2016-04-03] MEDS: VANCOMYCIN INJ 2,500 MG in SODIUM CHLORIDE 0.9% 500ML 500 ML IV SCH ×2 (08:00→17:50)
[2016-04-03] MEDS: RANITIDINE HCL 150 MG TAB PO SCH ×2 (08:20→21:58)
[2016-04-03] MEDS: FLUTICASONE PROPIONATE NA SPR 16 GM BTL NAE SCH (08:21)
[2016-04-03] MEDS: LISINOPRIL 20 MG TAB PO SCH ×2 (08:22→21:58)
[2016-04-03] MEDS ORDERED: PHARMACY GLYCEMIC MGMT CONSULT PRN (08:28)
[2016-04-03] MEDS: INSULIN GLARGINE SOLOSTAR 100 UNITS/ML 3 ML PEN SC SCH ×2 (09:00→22:01)
[2016-04-03 11:46] VITALS: BP 158/83; PULSE 86; TEMP 37.1; O2SAT 93
--- NOTE | 2016-04-03 12:28 | Pharmacy Progress Note ---
Glycemic Control Intl Consult Date of Service Apr 03, 2016. Scope Glycemic Pharmacist consulted by Dr Hernandez on 04/03/16 for glycemic control and to write orders per [facility] inpatient glycemic control protocol Objective Weight (Kilograms): 191.300 Accuchecks BSG (last 24hrs): Test 04/02/16 15:52 04/02/16 20:03 04/03/16 07:07 04/03/16 07:12 Bedside Glucose 257 mg/dl (70-99) 278 mg/dl (70-99) 252 mg/dl (70-99) Random Glucose 289 mg/dl (70-99) Test 04/03/16 11:09 Bedside Glucose 288 mg/dl (70-99) Laboratory Data (last 24hrs) Test 04/03/16 05:55 04/03/16 07:12 White Blood Count 6.03 K/uL Red Blood Count 5.14 M/uL Hemoglobin 14.7 g/dL Hematocrit 45.2 % Mean Corpuscular Volume 87.9 fL Mean Corpuscular Hemoglobin 28.6 pg Mean Corpuscular Hemoglobin Concent 32.5 g/dl Platelet Count 206 K/uL Mean Platelet Volume 12.0 fL Neutrophils (%) (Auto) 64.9 % Lymphocytes (%) (Auto) 15.3 % Monocytes (%) (Auto) 13.6 % Eosinophils (%) (Auto) 5.0 % Basophils (%) (Auto) 0.7 % Neutrophils # (Auto) 3.92 K/uL Lymphocytes # (Auto) 0.92 K/uL Monocytes # (Auto) 0.82 K/uL Eosinophils # (Auto) 0.30 K/uL Basophils # (Auto) 0.04 K/uL Anion Gap 7.0 mmol/L BUN/Creatinine Ratio 15.1 Blood Urea Nitrogen 13 mg/dl Creatinine 0.88 mg/dl Potassium Level 4.4 mmol/L Sodium Level 134 mmol/L HbA1c Item Value Date Time Hemoglobin A1c 10.6 % H 02/02/16 1240 Recent Pertinent Medications Outpatient Anti-diabetic Regimen: * NPH 110 units HS * Regular insulin 120 units with breakfast only * metformin 1000 mg PO BIDM * A1c = 10.6 % 02/02/16 The patient is currently receiving: * Basal insulin: none * Correctional Insulin: Novolog Correction per scale ACHS Goal Range: Low 100 mg/dL - High 150 mg/dL Correction Factor: 30 mg/dL/unit * Prandial insulin: Per carb ratio of 1 unit per 10 grams CHO consumed * Oral Agents: on hold Risk Factors for Insulin Resistance: * Infection: cellulitis on vanco/zosyn IV * Diet: T2DM Assessment & Plan ASSESSMENT: * 60 yo M admitted with cellulitis, initiated on broad spectrum antibiotics, found to be hypoglycemic on admission * Per MD, this is likely due to recent dietary changes and 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 * Patient takes NPH 110 units at bedtime + Regular insulin 120 units at breakfast only * Recently he has changed to high protein diet without speaking with PCP and has not changed insulin with this diet * He notes BSGs near 400 mg/dL at times * Recommend CDE see this patient * BSGs on admission treated with several sandwiches and D50 bolus in the ED * BSGs today >250 mg/dL likely due to basal deficiency and loose Novolog scale ( given morbid obesity) * Now that patient is no longer hypoglycemic and BSGs on the rise--> initiate weight-based basal/bolus regimen * I will start with a stress of 2 for basal insulin and near that for Novolog-- > tighten tomorrow if necessary * Add 00,04 checks as we begin to titrate insulin * ADA & AACE recommend a goal blood sugar range 140-180 mg/dl for the majority of critically ill & non-critically ill patients. However, more stringent targets may be selected in individual cases. Tighten to 100-140 mg/dL to facilitate treatment of cellulitis. PLAN FOR INPATIENT GLYCEMIC CONTROL: * Holding outpatient oral diabetes medications * Add Basal insulin with LANTUS 32 units SQ BID * Tighten Correctional Insulin with NOVOLOG per scale ACHS or Q6hrs while NPO + 00,04 checks * Goal Range: Low 100 mg/dL - High 140 mg/dL * Correction Factor: 15 mg/dL/unit * Nutritional / Prandial insulin per carb ratio of 1 unit per 5 grams CHO consumed * A1c within 90 days, indicative of poor glycemic control, will add to D/C instructions * Please note that the plan above was derived based on current level of insulin resistance and hospital stress. These recommendations are appropriate for inpatient admission only. Plan of care upon discharge will need to be reassessed to avoid potential outpatient hypo/hyperglycemia. Thank you.
[2016-04-03] MEDS: OXYCODONE/ACETAMINOPHEN 10/325MG TAB PO PRN ×2 (14:33→22:12)
[2016-04-03 15:55] VITALS: BP 128/75; PULSE 83; TEMP 37.1; O2SAT 95
--- NOTE | 2016-04-03 16:34 | Hospitalist Progress Note ---
Hospitalist Progress Note Date of Service Apr 03, 2016. Subjective Pt evaluation today including: conversation w/ patient, physical exam, chart review, lab review, review of studies, review of inpatient medication list Patient feels some better today. He has less pain in the lower extremities. I noted much less erythema in the lower legs. He has no chest pain or SOB. No F/ C. Additional Comments: A 10 system review was performed and all were negative. Positives were placed in the subjective section. Objective Vital Signs Date Time Temp Pulse Resp B/P Pulse Ox O2 Delivery O2 Flow Rate FiO2 04/03/16 15:55 37.1 83 21 128/75 95 Room Air 04/03/16 11:46 CPAP 4.0 04/03/16 11:46 37.1 86 22 158/83 93 04/03/16 08:00 CPAP 4.0 04/03/16 08:00 36.9 92 18 144/81 94 Room Air 04/03/16 04:22 36.3 84 20 126/70 97 BiPAP 04/03/16 04:00 CPAP 4.0 04/03/16 00:02 CPAP 4.0 04/02/16 23:17 37.0 90 20 157/81 92 Room Air 04/02/16 22:28 84 98 4.0 04/02/16 20:00 Room Air 04/02/16 18:50 36.9 93 18 135/75 93 Physical Exam Notes: GEN: Awake, alert, and oriented x 3. Not in acute distress HEENT: Tm's intact, no inflammation, EOMI, PERRLA, MMM Neck: Soft, supple Lungs: CTA b/l, no r/r/w Heart: REG, nrl S1S2 without murmurs, rubs or gallops Abdomen: Soft, NT, ND, + BS EXT: No C/C/E NEURO: CN's II-XII grossly intact, non-focal Skin: warm, dry, no rashes. Much less erythema over the b/l lower legs. the areas of erythema have become sectional instead of diffuse. PSYCH: pleasant, cooperative. Laboratory Results Last 24 Hours Test 04/02/16 20:03 04/03/16 05:55 04/03/16 07:07 04/03/16 07:12 Bedside Glucose 278 mg/dl 252 mg/dl White Blood Count 6.03 K/uL Red Blood Count 5.14 M/uL Hemoglobin 14.7 g/dL Hematocrit 45.2 % Mean Corpuscular Volume 87.9 fL Mean Corpuscular Hemoglobin 28.6 pg Mean Corpuscular Hemoglobin Concent 32.5 g/dl Platelet Count 206 K/uL Mean Platelet Volume 12.0 fL Neutrophils (%) (Auto) 64.9 % Lymphocytes (%) (Auto) 15.3 % Monocytes (%) (Auto) 13.6 % Eosinophils (%) (Auto) 5.0 % Basophils (%) (Auto) 0.7 % Neutrophils # (Auto) 3.92 K/uL Lymphocytes # (Auto) 0.92 K/uL Monocytes # (Auto) 0.82 K/uL Eosinophils # (Auto) 0.30 K/uL Basophils # (Auto) 0.04 K/uL RDW Standard Deviation 46.0 fL RDW Coefficient of Variation 14.1 % Immature Granulocyte % (Auto) 0.5 % Immature Granulocyte # (Auto) 0.03 K/uL Toxic Vacuolation 1+ Platelet Estimate NORMAL Sodium Level 134 mmol/L Potassium Level 4.4 mmol/L Chloride Level 100 mmol/L Carbon Dioxide Level 27 mmol/L Anion Gap 7.0 mmol/L Blood Urea Nitrogen 13 mg/dl Creatinine 0.88 mg/dl Est Creatinine Clear Calc Drug Dose 153.8 ml/min Estimated GFR () 109.0 Estimated GFR (Non- 94.0 BUN/Creatinine Ratio 15.1 Random Glucose 289 mg/dl Calcium Level 8.5 mg/dl Magnesium Level 2.3 mg/dl Test 04/03/16 11:09 04/03/16 16:15 Bedside Glucose 288 mg/dl 285 mg/dl Assessment and Plan 1) Hypoglycemia, symptomatic - resolved. Patient clearly had altered mental status when his sugars were low. 2) Type II DM - On sliding scale for coverage. I consulted pharmacist for glycemic control assistance. 3) Cellulitis b/l lower extremities - Continue IV Zosyn and IV Vanco. Patient did have an elevated white count and mildly elevated lactic acid. Blood cultures are pending. 4) Right lower extremity paraesthesia and transient weakness - MRI of the brain was normal. I ordered MRI of the L-S spine to see if there is nerve compression I do not see that this has been performed yet, which it may not until Monday which is fine, it is not urgent. 5) GERD - no symptom breakthrough. 6) Morbid Obesity - required increase in lovenox fo DVT prophylaxis. 7) DVT prophylaxis - Hold TEDs and SCDs due to the pain associated with the cellulitis. He is now on an appropriate dose of Lovenox for his weight. Continued [facility] stay due to: multiple IV medications needed Discharge planning: home
[2016-04-03] MEDS ORDERED: VANCOMYCIN TROUGH SCH (17:30)
[2016-04-03] MEDS: ENOXAPARIN 40 MG/0.4 ML SYR SQ SCH (17:51)
[2016-04-03 19:18] VITALS: BP 178/99; PULSE 86; TEMP 36.8; O2SAT 90
[2016-04-03 22:41] VITALS: PULSE 78; O2SAT 98
[2016-04-04] VITALS (8 sets, daily range): BP systolic 101–160; BP diastolic 55–84; PULSE 70–87; TEMP 36.6–37.5; O2SAT 90–97
[2016-04-04] MEDS: INSULIN ASPART 100 UNITS/ML 3 ML PEN SC SCH ×7 (00:39→23:56)
[2016-04-04] MEDS ORDERED: GADAVIST IV PRN (00:45)
[2016-04-04] MEDS: PIPERACILL/TAZOBAC IV 3.375 GM in DEXTROSE 5% 100ML 100 ML IV SCH ×2 (02:13→08:52)
[2016-04-04] MEDS: VANCOMYCIN INJ 2,500 MG in SODIUM CHLORIDE 0.9% 500ML 500 ML IV SCH ×2 (04:10→15:11)
[2016-04-04 07:33] LABS: BASO % 0.6 %; BASO ABS # 0.04 K/uL (0-0.2); COMPLETE YES; EOS % 5.8 %; HEMATOCRIT 41.2 % (42-52); IG% 1.3 %; LYMPH % 19.8 %; LYMPH ABS # 1.26 K/uL (1.2-3.4); MEAN CELL VOLUME 84.9 fL (80-100); MEAN CORPUSCULAR HEMOGLOBIN 28.7 pg (25-34); MEAN CORPUSCULAR HGB CONC 33.7 g/dl (32-36); MEAN PLATELET VOLUME 11.2 fL (7.4-10.4); MONO % 12.6 %; NEUT % 59.9 %; PLATELET COUNT 227 K/uL (130-400); RED BLOOD COUNT 4.85 M/uL (4.7-6.1); WHITE BLOOD COUNT 6.36 K/uL (4.8-10.8)
[2016-04-04 07:49] LABS: BLOOD UREA NITROGEN 13 mg/dl (7-18); CALCIUM 8.1 mg/dl (8.5-10.1); CARBON DIOXIDE 28 mmol/L (21-32); CHLORIDE 103 mmol/L (98-107); CREATININE 0.78 mg/dl (0.60-1.40); GLUCOSE 193 mg/dl (70-99); SODIUM 137 mmol/L (136-145)
--- NOTE | 2016-04-04 07:55 | DIAGNOSTIC IMAGING REPORT ---
LUMBAR SPINE MRI WITH AND WITHOUT CONTRAST HISTORY: Pain. Neuropathy. right leg numbness in diabetic. TECHNIQUE: Multiplanar multisequence MRI of the lumbar spine was performed both before and after the intravenous administration of contrast. COMPARISON: None. FINDINGS: For the purpose of the report the L5-S1 disc space will be located on axial image 2430. Grade 1 anterolisthesis L5 on S 1. Normal signal characteristics of the vertebral bodies. Posterior spondylolysis L5-S1. Maximum anterolisthesis 4 mm. L1-L2: No significant central canal or neural foraminal narrowing. L2-L3: No significant central canal or neural foraminal narrowing. L3-L4: No significant central canal or neural foraminal narrowing. L4-L5: No significant central canal or neural foraminal narrowing. L5-S1: No significant central canal or neural foraminal narrowing. IMPRESSION: Grade 1 anterolisthesis L5 on S1 associated with a posterior spondylolysis. 2. No evidence for significant disc herniation or significant component of spinal stenosis. Electronically signed by: Antony Luna M.D. 04/04/2016 7:54 AM Dictated Date/Time: 04/04/2016 7:47 AM
[2016-04-04] MEDS: FLUTICASONE PROPIONATE NA SPR 16 GM BTL NAE SCH (08:48)
[2016-04-04] MEDS: RANITIDINE HCL 150 MG TAB PO SCH ×2 (08:50→20:07)
[2016-04-04] MEDS: LISINOPRIL 20 MG TAB PO SCH ×2 (08:50→20:08)
[2016-04-04] MEDS: ENOXAPARIN 40 MG/0.4 ML SYR SQ SCH (08:51)
[2016-04-04 09:11] LABS: MAGNESIUM 2.4 mg/dl (1.8-2.4); POTASSIUM 4.2 mmol/L (3.5-5.1)
[2016-04-04] MEDS: INSULIN GLARGINE SOLOSTAR 100 UNITS/ML 3 ML PEN SC SCH ×2 (09:17→20:26)
[2016-04-04] MEDS: OXYCODONE/ACETAMINOPHEN 10/325MG TAB PO PRN ×3 (10:04→20:15)
[2016-04-04] MEDS ORDERED: FUROSEMIDE 40 MG TAB PO ONE (11:00)
[2016-04-04] MEDS: MUPIROCIN 2% OINT 22 GM TUBE EXT SCH ×2 (11:00→20:08)
--- NOTE | 2016-04-04 11:51 | DIAGNOSTIC IMAGING REPORT ---
ULTRASOUND RIGHT LOWER EXTREMITY VENOUS CLINICAL HISTORY: Right calf pain. COMPARISON STUDY: No priors. TECHNIQUE: Real-time, grayscale, and color Doppler sonography of the deep veins of the right lower extremity was performed from the inguinal crease to the calf. Compression and augmentation were utilized. FINDINGS: There is nearly occlusive deep venous thrombosis identified from the proximal superficial femoral vein to the calf. The common vein is patent and normally compressible. The greater saphenous vein and the profunda femoris vein at the junction with the common femoral vein are clear. IMPRESSION: There is nearly occlusive deep venous thrombosis seen extending from the proximal superficial femoral vein to the calf. Electronically signed by: Francisco Jiménez M.D. 04/04/2016 11:50 AM Dictated Date/Time: 04/04/2016 11:49 AM
--- NOTE | 2016-04-04 12:08 | Pharmacy Progress Note ---
Glycemic Control Intl Consult Date of Service Apr 04, 2016. Scope Glycemic Pharmacist consulted by Dr Hernandez on 04/03/16 for glycemic control and to write orders per [facility] inpatient glycemic control protocol Objective Weight (Kilograms): 193.800 Accuchecks BSG (last 24hrs): Test 04/03/16 16:15 04/03/16 19:48 04/04/16 00:23 04/04/16 04:08 Bedside Glucose 285 mg/dl (70-99) 240 mg/dl (70-99) 224 mg/dl (70-99) 234 mg/dl (70-99) Test 04/04/16 06:43 04/04/16 06:56 04/04/16 11:14 Bedside Glucose 183 mg/dl (70-99) 220 mg/dl (70-99) Random Glucose 193 mg/dl (70-99) Laboratory Data (last 24hrs) Test 04/04/16 06:56 04/04/16 08:30 Anion Gap 6.0 mmol/L BUN/Creatinine Ratio 16.0 Blood Urea Nitrogen 13 mg/dl Creatinine 0.78 mg/dl Potassium Level mmol/L 4.2 mmol/L Sodium Level 137 mmol/L White Blood Count 6.36 K/uL Red Blood Count 4.85 M/uL Hemoglobin 13.9 g/dL Hematocrit 41.2 % Mean Corpuscular Volume 84.9 fL Mean Corpuscular Hemoglobin 28.7 pg Mean Corpuscular Hemoglobin Concent 33.7 g/dl Platelet Count 227 K/uL Mean Platelet Volume 11.2 fL Neutrophils (%) (Auto) 59.9 % Lymphocytes (%) (Auto) 19.8 % Monocytes (%) (Auto) 12.6 % Eosinophils (%) (Auto) 5.8 % Basophils (%) (Auto) 0.6 % Neutrophils # (Auto) 3.81 K/uL Lymphocytes # (Auto) 1.26 K/uL Monocytes # (Auto) 0.80 K/uL Eosinophils # (Auto) 0.37 K/uL Basophils # (Auto) 0.04 K/uL Recent Pertinent Medications Outpatient Anti-diabetic Regimen: * NPH 110 units HS * Regular insulin 120 units with breakfast only * metformin 1000 mg PO BID with meals * A1c = 10.6 % 02/02/16 The patient is currently receiving: * Basal insulin: Lantus 32 units SQ BID * Correctional Insulin: NovoLog Correction per scale ACHS Goal Range: Low 100 mg/dL - High 140 mg/dL Correction Factor: 12 mg/dL/unit * Prandial insulin: Per carb ratio of 1 unit per 4 grams CHO consumed * Oral Agents: on hold Risk Factors for Insulin Resistance: * Infection: cellulitis on vanco/zosyn IV * Diet: T2DM Assessment & Plan ASSESSMENT: * 60 yo M admitted with cellulitis, initiated on broad spectrum antibiotics, found to be hypoglycemic on admission * Per MD, this is likely due to recent dietary changes and a 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 * Patient takes NPH 110 units at bedtime + Regular insulin 120 units at breakfast only * Recently he has changed to high protein diet without speaking with PCP and has not changed insulin with this diet * He notes BSGs near 400 mg/dL at times * Recommend CDE see this patient 04/03/16 * BSGs on admission treated with several sandwiches and D50 bolus in the ED * BSGs today >250 mg/dL likely due to basal deficiency and loose Novolog scale ( given morbid obesity) * Now that patient is no longer hypoglycemic and BSGs on the rise--> initiate weight-based basal/bolus regimen * I will start with a stress of 2 for basal insulin and near that for Novolog-- > tighten tomorrow if necessary * Add 00,04 checks as we begin to titrate insulin 04/04/16 * BSGs no longer below goal range and have become slightly above goal at this time * Tighten NovoLog parameters further * Hesitate to increase basal insulin since it has not yet reached steady state and fasting BSG already lower compared to the previous day * Will need discharge recommendations - may benefit from dose decreases since diet has changed. * used 129 units of insulin on 04/03 (home doses ~200 units per day) * ADA & AACE recommend a goal blood sugar range 140-180 mg/dl for the majority of critically ill & non-critically ill patients. However, more stringent targets may be selected in individual cases. Tighten to 100-140 mg/dL to facilitate treatment of cellulitis. PLAN FOR INPATIENT GLYCEMIC CONTROL: * Holding outpatient oral diabetes medications * Continue Lantus 32 units SQ BID * Tighten Correctional Insulin with NOVOLOG per scale ACHS or Q6hrs while NPO + 00,04 checks * Goal Range: Low 100 mg/dL - High 140 mg/dL * Correction Factor: 12 mg/dL/unit * Nutritional / Prandial insulin per carb ratio of 1 unit per 4 grams CHO consumed * A1c within 90 days, indicative of poor glycemic control, will add to D/C instructions RECOMMENDATIONS FOR DISCHARGE: * decrease in doses with current diet change * may need redistribution of doses to prevent highs and lows * Please note that the plan above was derived based on current level of insulin resistance and hospital stress. These recommendations are appropriate for inpatient admission only. Plan of care upon discharge will need to be reassessed to avoid potential outpatient hypo/hyperglycemia. Thank you.
[2016-04-04] MEDS ORDERED: HEPARIN IV BOLUS 10,000 UNIT in SYRINGE 0 ML IV ONE (13:15)
[2016-04-04] MEDS: HEPARIN 25,000 UNIT/500ML D5W 500 ML IV PRN (13:53)
[2016-04-04] MEDS: WARFARIN SOD 7.5 MG TAB PO SCH (15:12)
--- NOTE | 2016-04-04 15:29 | Pharmacy Progress Note ---
Pharmacy Antibiotic Prog Note Date of Service: Apr 04, 2016. Subjective: The patient is currently receiving Vancomycin 2500mg IV every 10 hours. The patient is currently on day # 3 of Vancomycin IV therapy. Objective: Height (Feet): 5 Height (Inches): 10.00 Weight (Kilograms): 193.800 Levels: Item Value Date Time Vancomycin Level Trough 17.8 mcg/ml 04/03/16 1720 Lab Results (24hrs): Laboratory Tests Test 04/04/16 06:56 BUN/Creatinine Ratio 16.0 Blood Urea Nitrogen 13 mg/dl Creatinine 0.78 mg/dl White Blood Count 6.36 K/uL Red Blood Count 4.85 M/uL Hemoglobin 13.9 g/dL Hematocrit 41.2 % Mean Corpuscular Volume 84.9 fL Mean Corpuscular Hemoglobin 28.7 pg Mean Corpuscular Hemoglobin Concent 33.7 g/dl Platelet Count 227 K/uL Mean Platelet Volume 11.2 fL Neutrophils (%) (Auto) 59.9 % Lymphocytes (%) (Auto) 19.8 % Monocytes (%) (Auto) 12.6 % Eosinophils (%) (Auto) 5.8 % Basophils (%) (Auto) 0.6 % Neutrophils # (Auto) 3.81 K/uL Lymphocytes # (Auto) 1.26 K/uL Monocytes # (Auto) 0.80 K/uL Eosinophils # (Auto) 0.37 K/uL Basophils # (Auto) 0.04 K/uL Micro Results: Item Value Date Time Blood Culture - Final Complete 04/01/16 1856 Blood Coag Neg Staphylococcus Blood Culture - Preliminary Resulted 04/01/16 1839 Blood NO GROWTH TO DATE. Urine Culture - Final Complete 04/02/16 1350 Urine , Clean Catch THREE TYPES OF ORGANISMS PRESENT, ALL... Assessment & Plan: This drug level is Therapeutic. I think patient is prone to accumulation and I will change frequency to every 12 hours based on patients bariatric state. New frequency starting at 0400 on 04/05 and check trough level prior to 0400 dose on 04/06/16. Patients leg is improving at this point, Zosyn has been discontinued. Will continue to monitor. Goal trough level estimate: between 15-20 mcg/mL. Pharmacy will continue to follow and will adjust dose/frequency as necessary. Thank you
[2016-04-04] MEDS ORDERED: NVLRB SC (15:37)
--- NOTE | 2016-04-04 21:07 | Progress Note ---
Subjective Date of Service: Apr 04, 2016. Subjective Pt evaluation today including: conversation w/ patient, physical exam, chart review, lab review, review of studies (doppler, RLE; MRI l-spine ) Pain: right leg from the knee down to the ankle; calf also PO Intake: normalizing Voiding: no voiding problems telemetry normal overnight patient's main complaint is that of right leg pain hurts to even walk on it in the room denies paresthesias patient denies any recent travel, prolonged immobilization, surgery for about 3 days prior to admission he "felt terrible" with fever, chills, and poor appetite Problem List Medical Problems: (1) Cellulitis Status: Acute (2) Hypoglycemia Status: Acute (3) Sepsis Status: Acute (4) Weakness Status: Acute Review of Systems Constitutional: No chills, No fever Respiratory: No dyspnea on exertion, No shortness of breath Cardiac: No chest pain, No orthopnea Abdomen: No pain Objective Vital Signs Date Time Temp Pulse Resp B/P Pulse Ox O2 Delivery O2 Flow Rate FiO2 04/04/16 20:07 37.5 85 20 154/77 90 Room Air 04/04/16 15:46 37.1 79 20 134/84 95 Room Air 04/04/16 11:39 CPAP 4.0 04/04/16 11:15 36.6 78 20 130/81 92 Room Air 04/04/16 08:00 CPAP 4.0 04/04/16 07:55 36.9 81 20 117/74 94 Room Air 04/04/16 04:00 CPAP 4.0 04/04/16 03:46 36.9 70 17 135/59 94 CPAP 3.0 04/04/16 00:31 36.8 87 20 101/55 92 Room Air 04/04/16 00:02 Room Air 04/03/16 22:41 78 98 4.0 Physical Exam General Appearance: no apparent distress, + obese ENT: pharynx normal Neck: no JVD Respiratory/Chest: lungs clear, no respiratory distress, no accessory muscle use Cardiovascular: regular rate, rhythm, no gallop, no murmur Abdomen: normal bowel sounds, non tender, soft, no organomegaly Extremities: + calf tenderness (right; the right calf is also much larger than the left calf; the right calf is quite firm to touch), + pertinent finding ( right leg and ankle/foot with edema, about 2+; left foot/ankle with <1+) Neurologic/Psychiatric: alert, oriented x 3 Skin: + rash (b/l cheeks on face - erythema with crust/papules), + pertinent finding (resolved cellulitis of b/l LEs) Laboratory Results Last 24 Hours Test 04/04/16 00:23 04/04/16 04:08 04/04/16 06:43 04/04/16 06:56 Bedside Glucose 224 mg/dl 234 mg/dl 183 mg/dl White Blood Count 6.36 K/uL Red Blood Count 4.85 M/uL Hemoglobin 13.9 g/dL Hematocrit 41.2 % Mean Corpuscular Volume 84.9 fL Mean Corpuscular Hemoglobin 28.7 pg Mean Corpuscular Hemoglobin Concent 33.7 g/dl Platelet Count 227 K/uL Mean Platelet Volume 11.2 fL Neutrophils (%) (Auto) 59.9 % Lymphocytes (%) (Auto) 19.8 % Monocytes (%) (Auto) 12.6 % Eosinophils (%) (Auto) 5.8 % Basophils (%) (Auto) 0.6 % Neutrophils # (Auto) 3.81 K/uL Lymphocytes # (Auto) 1.26 K/uL Monocytes # (Auto) 0.80 K/uL Eosinophils # (Auto) 0.37 K/uL Basophils # (Auto) 0.04 K/uL RDW Standard Deviation 43.0 fL RDW Coefficient of Variation 13.8 % Immature Granulocyte % (Auto) 1.3 % Immature Granulocyte # (Auto) 0.08 K/uL Sodium Level 137 mmol/L Potassium Level mmol/L Chloride Level 103 mmol/L Carbon Dioxide Level 28 mmol/L Anion Gap 6.0 mmol/L Blood Urea Nitrogen 13 mg/dl Creatinine 0.78 mg/dl Est Creatinine Clear Calc Drug Dose 175.0 ml/min Estimated GFR () 114.5 Estimated GFR (Non- 98.8 BUN/Creatinine Ratio 16.0 Random Glucose 193 mg/dl Calcium Level 8.1 mg/dl Magnesium Level mg/dl Test 04/04/16 08:30 04/04/16 11:14 04/04/16 16:43 04/04/16 20:00 Potassium Level 4.2 mmol/L Magnesium Level 2.4 mg/dl Bedside Glucose 220 mg/dl 275 mg/dl Test 04/04/16 20:09 Bedside Glucose 318 mg/dl Assessment and Plan 60yo male: 1. b/l LE cellulitis - appears resolved. d/c zosyn. cont vanco (see below). day #3 of such. 2. sepsis 2nd to #2 with bacteremia - coag negative staph in 1/2 sets of blood cultures. Although typically a contaminant I believe the coag neg staph is pathogenic in his case due to the recent cellulitis. I would use caution and treat for a full 14 days. Consider ID consultation. In meantime cont vanco IV. 3. extensive RLE DVT - as seen on doppler today. No signs/symptoms of PEs. In light of extent of DVT and his morbid obesity would NOT use a NOAC and instead use heparin drip with coumadin. Start both today with daily INR/PTT/PT. cause??? no risk factors for such. consider outpatient cancer w/u and/or hypercoagulable w/u. 4. hypoglycemia - resolved. 5. T2DM - labile - appreciate pharmacy recommendations. 6. metabolic encephalopathy 2nd to #4 - resolved. 7. RLE paresthesias - MRI brain neg. L-spine MRI without cord or nerve compromise. Perhaps 2nd to diabetic neuropathy. DVT pain could be playing a role as well. 8. morbid obesity with BMI 61 PT, OT evals leave on tele overnight if stable in am then transfer to med/surg Continued [facility] stay due to: multiple IV medications needed Discharge planning: uncertain
[2016-04-04 22:01] LABS: PARTIAL THROMBOPLASTIN RATIO 1.6
[2016-04-04] MEDS ORDERED: HEPARIN IV BOLUS 5,000 UNIT in SYRINGE 0 ML IV ONE (22:30)
[2016-04-05] VITALS (8 sets, daily range): BP systolic 114–150; BP diastolic 61–97; PULSE 61–90; TEMP 36.4–37.2; O2SAT 93–98; BMI 59.9
[2016-04-05] MEDS: OXYCODONE/ACETAMINOPHEN 10/325MG TAB PO PRN ×5 (00:06→23:28)
[2016-04-05] MEDS: HEPARIN 25,000 UNIT/500ML D5W 500 ML IV PRN ×2 (00:49→11:27)
[2016-04-05] MEDS: VANCOMYCIN INJ 2,500 MG in SODIUM CHLORIDE 0.9% 500ML 500 ML IV SCH ×2 (04:02→16:26)
[2016-04-05] MEDS: INSULIN ASPART 100 UNITS/ML 3 ML PEN SC SCH ×5 (04:04→21:25)
[2016-04-05 04:40] LABS: HEMATOCRIT 41.6 % (42-52); MEAN CELL VOLUME 84.6 fL (80-100); MEAN CORPUSCULAR HGB CONC 33.2 g/dl (32-36); MEAN PLATELET VOLUME 10.3 fL (7.4-10.4); PLATELET COUNT 221 K/uL (130-400); RED BLOOD COUNT 4.92 M/uL (4.7-6.1); WHITE BLOOD COUNT 7.06 K/uL (4.8-10.8)
[2016-04-05 05:01] LABS: PARTIAL THROMBOPLASTIN RATIO 2.6; PROTHROMBIN TIME (PATIENT) 11.2 SECONDS (9.0-12.0)
[2016-04-05 05:08] LABS: BUN/CREATININE RATIO 16.8 (10-20); CALCIUM 8.4 mg/dl (8.5-10.1); CREATININE 0.82 mg/dl (0.60-1.40)
[2016-04-05] MEDS: INSULIN GLARGINE SOLOSTAR 100 UNITS/ML 3 ML PEN SC SCH ×2 (08:14→21:26)
[2016-04-05] MEDS: RANITIDINE HCL 150 MG TAB PO SCH ×2 (08:16→21:17)
[2016-04-05] MEDS: LISINOPRIL 20 MG TAB PO SCH ×2 (08:16→21:17)
[2016-04-05] MEDS: MUPIROCIN 2% OINT 22 GM TUBE EXT SCH ×2 (08:17→21:15)
[2016-04-05] MEDS: FUROSEMIDE 40 MG TAB PO SCH (08:17)
[2016-04-05] MEDS: FLUTICASONE PROPIONATE NA SPR 16 GM BTL NAE SCH (08:18)
[2016-04-05] MEDS ORDERED: METOPROLOL TARTRATE 25 MG TAB PO SCH (09:00)
--- NOTE | 2016-04-05 10:10 | Pharmacy Progress Note ---
Glycemic Control: Progress Nt Date of Service Apr 05, 2016. Scope Glycemic Pharmacist consulted by Dr Hernandez on 04/03/16 for glycemic control and to write orders per [facility] inpatient glycemic control protocol. Objective Accuchecks BSG (last 24hrs): Test 04/04/16 11:14 04/04/16 16:43 04/04/16 20:09 04/04/16 23:50 Bedside Glucose 220 mg/dl (70-99) 275 mg/dl (70-99) 318 mg/dl (70-99) 261 mg/dl (70-99) Test 04/05/16 04:00 04/05/16 04:30 04/05/16 06:31 Bedside Glucose 184 mg/dl (70-99) 178 mg/dl (70-99) Random Glucose 200 mg/dl (70-99) Laboratory Data (last 24hrs) Test 04/05/16 04:30 Anion Gap 7.0 mmol/L BUN/Creatinine Ratio 16.8 Blood Urea Nitrogen 14 mg/dl Creatinine 0.82 mg/dl Potassium Level 4.0 mmol/L Sodium Level 141 mmol/L White Blood Count 7.06 K/uL Recent Pertinent Medications Outpatient Anti-diabetic Regimen: * NPH 110 units HS * Regular insulin 120 units with breakfast only * metformin 1000 mg PO BID with meals * A1c = 10.6 % 02/02/16 The patient is currently receiving: * Basal insulin: Lantus 32 units SQ BID * Correctional Insulin: NovoLog Correction per scale ACHS Goal Range: Low 100 mg/dL - High 140 mg/dL Correction Factor: 12 mg/dL/unit * Prandial insulin: Per carb ratio of 1 unit per 4 grams CHO consumed * Oral Agents: on hold Risk Factors for Insulin Resistance: * Infection: cellulitis/bacteremia on vanco IV - day #4 * Diet: T2DM * IV fluids: heparin infusion (source of IV dextrose) Assessment & Plan ASSESSMENT: * 60 yo M admitted with cellulitis, initiated on broad spectrum antibiotics, found to be hypoglycemic on admission * Per MD, this is likely due to recent dietary changes and a possible misdoing of insulin 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 * Patient takes NPH 110 units at bedtime + Regular insulin 120 units at breakfast only * Recently he has changed to high protein diet without speaking with PCP and has not changed insulin with this diet * He notes BSGs near 400 mg/dL at times * Recommend CDE see this patient 04/03/16 * BSGs on admission treated with several sandwiches and D50 bolus in the ED * BSGs today >250 mg/dL likely due to basal deficiency and loose NovoLog scale ( given morbid obesity) * Now that patient is no longer hypoglycemic and BSGs on the rise--> initiate weight-based basal/bolus regimen * I will start with a stress of 2 for basal insulin and near that for NovoLog-- > tighten tomorrow if necessary * Add 00,04 checks as we begin to titrate insulin 04/04/16 * BSGs no longer below goal range and have become slightly above goal at this time * Tighten NovoLog parameters further * Hesitate to increase basal insulin since it has not yet reached steady state and fasting BSG already lower compared to the previous day * Will need discharge recommendations - may benefit from dose decreases since diet has changed. * used 129 units of insulin on 04/03 (home doses ~200 units per day) 04/05/16 * BSGs continued to rise yesterday throughout the day * increase basal insulin by ~20% today * tighten NovoLog parameters since seeing rise throughout the day with current regimen * heparin infusion started last evening * constant infusion of dextrose may also be causing rise in BSGs * Large doses of insulin at home - concerning to emulate this secondary to hypoglycemia on admission * using weight based dosing and titrating daily * ADA & AACE recommend a goal blood sugar range 140-180 mg/dl for the majority of critically ill & non-critically ill patients. However, more stringent targets may be selected in individual cases. Tighten to 100-140 mg/dL to facilitate infection healing PLAN FOR INPATIENT GLYCEMIC CONTROL: * Holding outpatient oral diabetes medications * Increase Lantus to 38 units SQ BID * Correctional Insulin with NOVOLOG per scale ACHS or Q6hrs while NPO + 00,04 checks * Goal Range: Low 100 mg/dL - High 140 mg/dL * Correction Factor: 10 mg/dL/unit * Nutritional / Prandial insulin per carb ratio of 1 unit per 3 grams CHO consumed * A1c within 90 days, indicative of poor glycemic control, will add to D/C instructions * CDE consulted to help with discharge instructions RECOMMENDATIONS FOR DISCHARGE: * decrease in doses with current diet change * may need redistribution of doses to prevent highs and lows * Please note that the plan above was derived based on current level of insulin resistance and hospital stress. These recommendations are appropriate for inpatient admission only. Plan of care upon discharge will need to be reassessed to avoid potential outpatient hypo/hyperglycemia. Thank you.
[2016-04-05] MEDS ORDERED: NURSING VERBAL MED ORDER ONE (13:45)
[2016-04-05] MEDS: WARFARIN SOD 7.5 MG TAB PO SCH (16:27)
--- NOTE | 2016-04-05 21:10 | Progress Note ---
Subjective Date of Service: Apr 05, 2016. Subjective Pt evaluation today including: conversation w/ patient, conversation w/ family (brother, by phone), physical exam, chart review, lab review, review of inpatient medication list Pain: right leg is improved PO Intake: normal Voiding: no voiding problems ambulating fine voiding fine telemetry normal overnight however, after starting low-dose metoprolol today, he had bradycardia into the 40s denies dyspnea w/ exertion strength is better good appetite Problem List Medical Problems: (1) Cellulitis Status: Acute (2) Hypoglycemia Status: Acute (3) Sepsis Status: Acute (4) Weakness Status: Acute Review of Systems Constitutional: No chills, No fever Respiratory: No dyspnea at rest Cardiac: No chest pain Abdomen: No pain Objective Vital Signs Date Time Temp Pulse Resp B/P Pulse Ox O2 Delivery O2 Flow Rate FiO2 04/05/16 19:23 37.2 76 18 123/74 93 Room Air 04/05/16 16:00 98 Room Air 04/05/16 15:41 37.1 61 20 114/61 98 CPAP 04/05/16 12:00 Room Air 04/05/16 08:35 36.9 79 18 150/97 94 04/05/16 08:00 Room Air 04/05/16 04:00 CPAP 3.0 04/05/16 03:56 36.4 72 20 150/70 98 CPAP 3.0 04/05/16 00:01 CPAP 3.0 04/04/16 23:32 37.0 83 20 160/83 92 CPAP 3.0 04/04/16 21:30 80 97 4.0 Physical Exam General Appearance: no apparent distress, + obese ENT: pharynx normal Neck: no JVD Respiratory/Chest: lungs clear, no respiratory distress, no accessory muscle use Cardiovascular: regular rate, rhythm, no gallop, no murmur Abdomen: normal bowel sounds, non tender, soft, no organomegaly Extremities: + pedal edema (right foot/ankle and distal leg - about 1+; left foot about <1+), + pertinent finding (right calf is markedly larger than the left calf and is warm to touch on right) Neurologic/Psychiatric: alert, oriented x 3 Skin: + pertinent finding (no evidence of cellulitis either leg; stasis changes b/l shins) Laboratory Results Last 24 Hours Test 04/04/16 21:41 04/04/16 23:50 04/05/16 04:00 04/05/16 04:30 Activated Partial Thromboplast Time 42.7 SECONDS 67.2 SECONDS Partial Thromboplastin Ratio 1.6 2.6 Bedside Glucose 261 mg/dl 184 mg/dl White Blood Count 7.06 K/uL Red Blood Count 4.92 M/uL Hemoglobin 13.8 g/dL Hematocrit 41.6 % Mean Corpuscular Volume 84.6 fL Mean Corpuscular Hemoglobin 28.0 pg Mean Corpuscular Hemoglobin Concent 33.2 g/dl RDW Standard Deviation 42.0 fL RDW Coefficient of Variation 13.6 % Platelet Count 221 K/uL Mean Platelet Volume 10.3 fL Prothrombin Time 11.2 SECONDS Prothromb Time International Ratio 1.0 Sodium Level 141 mmol/L Potassium Level 4.0 mmol/L Chloride Level 104 mmol/L Carbon Dioxide Level 30 mmol/L Anion Gap 7.0 mmol/L Blood Urea Nitrogen 14 mg/dl Creatinine 0.82 mg/dl Est Creatinine Clear Calc Drug Dose 166.4 ml/min Estimated GFR () 112.2 Estimated GFR (Non- 96.8 BUN/Creatinine Ratio 16.8 Random Glucose 200 mg/dl Calcium Level 8.4 mg/dl Test 04/05/16 06:31 04/05/16 11:09 04/05/16 16:10 04/05/16 20:32 Bedside Glucose 178 mg/dl 278 mg/dl 165 mg/dl 217 mg/dl Assessment and Plan 60yo male: 1. b/l LE cellulitis - resolved. cont vanco (see below). day #4 of such. 2. sepsis 2nd to #2 with bacteremia - coag negative staph in 1/2 sets of blood cultures. Although typically a contaminant I believe the coag neg staph is pathogenic in his case due to the recent cellulitis. I would use caution and treat for a full 14 days. Consider ID consultation. In meantime cont vanco IV. repeat blood cx's in AM to ensure test of cure. 3. extensive RLE DVT - No signs/symptoms of PEs. In light of extent of DVT and his morbid obesity would NOT use a NOAC and instead use heparin drip with coumadin. Day #2 of coumadin 7.5mg. PT, PTT, INR in am. cause??? no risk factors for such. there IS a family history of DVT/PE - brother, and daughter (had VTE in her 20s) . Daughter has factor V Leiden. He very well may have latter issue. Check Factor V Leiden, homocysteine. 4. hypoglycemia - resolved. 5. T2DM - labile - appreciate pharmacy recommendations. Check hemoglobin a1c in am. 6. metabolic encephalopathy 2nd to #4 - resolved. 7. RLE paresthesias - MRI brain neg. L-spine MRI without cord or nerve compromise. Perhaps 2nd to diabetic neuropathy. DVT pain could be playing a role as well. Check b12 level in am. 8. morbid obesity with BMI 61 9. HTN - uncontrolled; added metoprolol but developed bradycardia and thus it will be d/c. Follow for now. PT, OT vladimir appreciated leave on tele overnight if stable in am then transfer to med/surg Continued [facility] stay due to: multiple IV medications needed Discharge planning: uncertain
[2016-04-06] VITALS (7 sets, daily range): BP systolic 92–139; BP diastolic 42–76; PULSE 73–84; TEMP 36.7–37.2; O2SAT 92–97
[2016-04-06] MEDS: HEPARIN 25,000 UNIT/500ML D5W 500 ML IV PRN ×3 (00:15→19:34)
[2016-04-06] MEDS: INSULIN ASPART 100 UNITS/ML 3 ML PEN SC SCH ×7 (00:31→23:53)
[2016-04-06] MEDS ORDERED: VANCOMYCIN TROUGH SCH (03:30)
[2016-04-06] MEDS: VANCOMYCIN INJ 2,500 MG in SODIUM CHLORIDE 0.9% 500ML 500 ML IV SCH (04:51)
[2016-04-06 07:36] LABS: INR 1.1 (0.9-1.1); PARTIAL THROMBOPLASTIN RATIO 2.1; PROTHROMBIN TIME (PATIENT) 11.3 SECONDS (9.0-12.0)
[2016-04-06 07:55] LABS: ESTIMATED AVERAGE GLUCOSE 246 mg/dl; HA1C FLAG Normal (Normal)
[2016-04-06] MEDS: RANITIDINE HCL 150 MG TAB PO SCH ×2 (08:11→20:17)
[2016-04-06] MEDS: OXYCODONE/ACETAMINOPHEN 10/325MG TAB PO PRN ×4 (08:11→20:28)
[2016-04-06] MEDS: LISINOPRIL 20 MG TAB PO SCH ×2 (08:12→20:18)
[2016-04-06] MEDS: FUROSEMIDE 40 MG TAB PO SCH (08:12)
[2016-04-06] MEDS: MUPIROCIN 2% OINT 22 GM TUBE EXT SCH ×2 (08:13→20:18)
[2016-04-06] MEDS: FLUTICASONE PROPIONATE NA SPR 16 GM BTL NAE SCH (08:13)
[2016-04-06] MEDS ORDERED: INSULIN GLARGINE SOLOSTAR 100 UNITS/ML 3 ML PEN SC SCH (09:00)
--- NOTE | 2016-04-06 10:15 | Pharmacy Progress Note ---
Pharmacy Antibiotic Prog Note Date of Service: Apr 06, 2016. Subjective: The patient is currently receiving vancomycin 2500 mg IV every 12 hours. The patient is currently on day # 5 of IV therapy. Objective: Height (Feet): 5 Height (Inches): 10.00 Weight (Kilograms): 189.400 Lab Results (24hrs): Item Value Date Time Vancomycin Level Trough 17.8 mcg/ml 04/03/16 1720 Vancomycin Level Trough 18.3 mcg/ml 04/06/16 0353 Micro Results: RUN DATE: 04/03/16 [facility] LAB PAGE 1 RUN TIME: 1309 Specimen Inquiry PATIENT: ALEXIS LAMA LOC: C.2T U # : [id number] AGE/SX: 60/M ROOM: 37 REG : 04/01/[address]: Ramone Hernandez, : 1955 BED: 1 DIS : STATUS: ADM IN TLOC: SPEC #: [id number] KERRY: 04/01/16 STATUS: ANURADHA RERogelio #: [id number] RECD: 04/01/[address]: Ludwin Canales M.D. SOURCE: BLOOD ENTR: 04/01/16 [facility] DR: Joe Nevarez M.D. [facility]: ORDERED: BLOOD CULTURE COMMENTS: Comments to Manager Java SAME TIME DIFFERENT SITES Procedure Result Verified Site BLD CULT Final 04/03/16-1309 Organism 1 COAG NEG STAPHYLOCOCCUS SENS NO SENSITIVITY TO FOLLOW One set of two positive. Isolation does not necessarily mean infection. No susceptibility tests performed. Contact microbiology laboratory ([phone]) if further studies are indicated. Phoned Positive Blood Culture Gram Stain Report to JUAN DIXON on 04/02/16 At 1922 By TIMMY. Results were verbalized back to TIMMY. Assessment & Plan: These drug levels are: Therapeutic Change to vancomycin 2250 mg IV every 12 hours ( believe that the trough will continue to creep up especially with the patient's body habitus so dose prophylactically decreased) Goal peak level estimate: between 35 - 40 mcg/mL. Goal trough level estimate: between 15 - 20 mcg/mL (indication bacteremia with coag negative staph). Trough has been ordered for: prior to 0400 dose. Pharmacy will continue to follow and will adjust dose/frequency as necessary. Thank you
--- NOTE | 2016-04-06 10:33 | Pharmacy Progress Note ---
Glycemic Control: Progress Nt Date of Service Apr 06, 2016. Scope Glycemic Pharmacist consulted by Dr Hernandez on 04/03/16 for glycemic control and to write orders per [facility] inpatient glycemic control protocol. Objective Accuchecks BSG (last 24hrs): Test 04/05/16 11:09 04/05/16 16:10 04/05/16 20:32 04/05/16 23:29 Bedside Glucose 278 mg/dl (70-99) 165 mg/dl (70-99) 217 mg/dl (70-99) 301 mg/dl (70-99) Test 04/06/16 00:07 04/06/16 04:39 04/06/16 06:45 Bedside Glucose 272 mg/dl (70-99) 238 mg/dl (70-99) 233 mg/dl (70-99) Laboratory Data (last 24hrs) Test 04/06/16 07:00 Hemoglobin A1c 10.2 % HbA1c: Test 04/06/16 07:00 Hemoglobin A1c 10.2 % (4.5-5.6) H Recent Pertinent Medications Outpatient Anti-diabetic Regimen: * NPH 110 units HS * Regular insulin 120 units with breakfast only * metformin 1000 mg PO BID with meals * A1c = 10.6 % 02/02/16 The patient is currently receiving: * Basal insulin: Lantus 38 units SQ BID * Correctional Insulin: NovoLog Correction per scale ACHS Goal Range: Low 100 mg/dL - High 140 mg/dL Correction Factor: 10 mg/dL/unit * Prandial insulin: Per carb ratio of 1 unit per 3 grams CHO consumed * Oral Agents: on hold Risk Factors for Insulin Resistance: * Infection: cellulitis/bacteremia on vanco IV - day #5 * Diet: T2DM/AHA * IV fluids: heparin infusion (source of IV dextrose) Assessment & Plan ASSESSMENT: * 60 yo M admitted with cellulitis, initiated on broad spectrum antibiotics, found to be hypoglycemic on admission * Per MD, this is likely due to recent dietary changes and a possible misdoing 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 * Patient takes NPH 110 units at bedtime + Regular insulin 120 units at breakfast only * Recently he has changed to high protein diet without speaking with PCP and has not changed insulin with this diet * He notes BSGs near 400 mg/dL at times * Recommend CDE see this patient 04/03/16 * BSGs on admission treated with several sandwiches and D50 bolus in the ED * BSGs today >250 mg/dL likely due to basal deficiency and loose NovoLog scale ( given morbid obesity) * Now that patient is no longer hypoglycemic and BSGs on the rise--> initiate weight-based basal/bolus regimen * I will start with a stress of 2 for basal insulin and near that for NovoLog-- > tighten tomorrow if necessary * Add 00,04 checks as we begin to titrate insulin 04/05/16 * BSGs continued to rise yesterday throughout the day * increase basal insulin by ~20% today * tighten NovoLog parameters since seeing rise throughout the day with current regimen * heparin infusion started last evening * constant infusion of dextrose may also be causing rise in BSGs * Large doses of insulin at home - concerning to emulate this secondary to hypoglycemia on admission * using weight based dosing and titrating daily 04/06/16 * BSGs remain above goal despite increases in basal and bolus doses of insulin - secondary to stress of illness, IV dextrose infusion? * continue to titrate NovoLog parameters accordingly * Fasting BSG again elevated today * increase BID doses of Lantus by ~20% * CDE met with patient yesterday to discuss discharge plans - * patient not agreeable to trying a new regimen, he will follow up as an outpatient * education provided on dosing regular insulin with meals to prevent hypoglycemia * ADA & AACE recommend a goal blood sugar range 140-180 mg/dl for the majority of critically ill & non-critically ill patients. However, more stringent targets may be selected in individual cases. Tighten to 100-140 mg/dL to facilitate infection healing PLAN FOR INPATIENT GLYCEMIC CONTROL: * Holding outpatient oral diabetes medications * Increase Lantus to 45 units SQ BID * give 20 units if BSG is below 140mg/dL * Correctional Insulin with NOVOLOG per scale ACHS or Q6hrs while NPO + 00,04 checks * Goal Range: Low 110 mg/dL - High 140 mg/dL * Correction Factor: 8 mg/dL/unit * Nutritional / Prandial insulin per carb ratio of 1 unit per 2.5 grams CHO consumed * A1c within 90 days, indicative of poor glycemic control, will add to D/C instructions * CDE consulted to help with discharge instructions RECOMMENDATIONS FOR DISCHARGE: * follow up with outpatient provider per patient wishes * Please note that the plan above was derived based on current level of insulin resistance and hospital stress. These recommendations are appropriate for inpatient admission only. Plan of care upon discharge will need to be reassessed to avoid potential outpatient hypo/hyperglycemia. Thank you.
[2016-04-06] MEDS: CYANOCOBALAMIN 1000 MCG/ML VIAL IM SCH (11:51)
[2016-04-06] MEDS: VANCOMYCIN INJ 2,250 MG in SODIUM CHLORIDE 0.9% 500ML 500 ML IV SCH (15:58)
[2016-04-06] MEDS ORDERED: WARFARIN SOD 10 MG TAB PO SCH (16:00)
--- NOTE | 2016-04-06 19:48 | Progress Note ---
Subjective Date of Service: Apr 06, 2016. Subjective Pt evaluation today including: conversation w/ patient, conversation w/ family (, daughter), physical exam, chart review, lab review, review of inpatient medication list Pain: right leg - minimal PO Intake: normal Voiding: no voiding problems tele overnight with <10 sec run of what appears to be significant sinus bradycardia (HR 25-30) no AV block or pauses noted by monitor techs he was sleeping when this occurred no symptoms denies sob, gonzales, cp, abd pain Problem List Medical Problems: (1) Cellulitis Status: Acute (2) Hypoglycemia Status: Acute (3) Sepsis Status: Acute (4) Weakness Status: Acute Review of Systems Constitutional: No fever Respiratory: No cough Cardiac: No chest pain Abdomen: No pain Objective Vital Signs Date Time Temp Pulse Resp B/P Pulse Ox O2 Delivery O2 Flow Rate FiO2 04/06/16 19:06 37.2 78 22 139/74 96 Room Air 04/06/16 16:00 Room Air 04/06/16 15:12 36.7 84 20 128/76 92 Room Air 04/06/16 12:00 Room Air 04/06/16 11:20 36.9 83 18 127/71 92 Room Air 04/06/16 08:31 119/67 04/06/16 08:00 Room Air 04/06/16 07:36 36.8 75 18 92/42 97 CPAP 3.0 04/06/16 04:17 36.7 73 24 127/71 96 CPAP 04/06/16 04:00 Room Air 04/05/16 23:59 97 BiPAP 3.5 04/05/16 23:33 36.9 90 24 120/73 97 BiPAP 04/05/16 21:47 97 3.5 04/05/16 20:00 Room Air Physical Exam General Appearance: no apparent distress, + obese ENT: pharynx normal Neck: no JVD Respiratory/Chest: lungs clear, no respiratory distress, no accessory muscle use Cardiovascular: regular rate, rhythm, no gallop, no murmur Abdomen: normal bowel sounds, non tender, soft, no organomegaly Extremities: + pedal edema (right foot, 1-2+; left <1+), + pertinent finding ( right calf much larger than left calf) Neurologic/Psychiatric: alert, oriented x 3 Skin: + pertinent finding (no cellulitis b/l legs) Laboratory Results Last 24 Hours Test 04/05/16 20:32 04/05/16 23:29 04/06/16 00:07 04/06/16 03:53 Bedside Glucose 217 mg/dl 301 mg/dl 272 mg/dl Vancomycin Level Trough 18.3 mcg/ml Test 04/06/16 04:39 04/06/16 06:41 04/06/16 06:45 04/06/16 07:00 Bedside Glucose 238 mg/dl 233 mg/dl Prothrombin Time 11.3 SECONDS Prothromb Time International Ratio 1.1 Activated Partial Thromboplast Time 53.9 SECONDS Partial Thromboplastin Ratio 2.1 Estimated Average Glucose 246 mg/dl Hemoglobin A1c 10.2 % Vitamin B12 Level 273 pg/mL Test 04/06/16 11:11 04/06/16 15:46 Bedside Glucose 216 mg/dl 184 mg/dl Assessment and Plan 60yo male: 1. b/l LE cellulitis - resolved. cont vanco (see below). day #5 of such. 2. sepsis 2nd to #2 with bacteremia - coag negative staph in 1/2 sets of blood cultures. Although typically a contaminant I believe the coag neg staph is pathogenic in his case due to the recent cellulitis. I would use caution and treat for a full 14 days. Repeat blood cx's today to ensure sterility. Cont vanco. 3. extensive RLE DVT - No signs/symptoms of PEs. In light of extent of DVT and his morbid obesity would NOT use a NOAC and instead use heparin drip with coumadin. Day #3 of coumadin - increase to 10mg daily starting today. PT, PTT, INR in am. cause??? no risk factors for such. there IS a family history of DVT/PE - brother, and daughter (had VTE in her 20s) . Daughter has factor V Leiden. He very well may have latter issue. Check Factor V Leiden, homocysteine. 4. hypoglycemia - resolved. 5. T2DM - labile and uncontrolled as evidenced by Hba1c of 10% - appreciate pharmacy recommendations. 6. metabolic encephalopathy 2nd to #4 - resolved. 7. RLE paresthesias - MRI brain neg. L-spine MRI without cord or nerve compromise. Perhaps 2nd to diabetic neuropathy. DVT pain could be playing a role as well. B12 level is low - could be contributing - start replacement. 8. morbid obesity with BMI 61 9. HTN - control adequate. 10. b12 def - start b12 1000mcg IM daily. 11. bradycardia - will show the strips to cardiology but appears severe sinus geno. Could be related to poorly treated CHRISTIANO. Could be lingering effects of beta mynor. no recurrence. 12. CHRISTIANO - has been using hospital CPAP; may not be enough pressure; encouraged to bring in home CPAP. PT, OT evals appreciated leave on tele overnight if stable in am then transfer to med/surg family updated at bedside Continued [facility] stay due to: multiple IV medications needed Discharge planning: home
[2016-04-06] MEDS: INSULIN GLARGINE SOLOSTAR 100 UNITS/ML 3 ML PEN SC SCH (20:20)
[2016-04-07] VITALS (8 sets, daily range): BP systolic 116–150; BP diastolic 65–82; PULSE 66–78; TEMP 36.2–37; O2SAT 93–100
[2016-04-07] MEDS: OXYCODONE/ACETAMINOPHEN 10/325MG TAB PO PRN ×4 (00:58→23:43)
[2016-04-07] MEDS: VANCOMYCIN INJ 2,250 MG in SODIUM CHLORIDE 0.9% 500ML 500 ML IV SCH ×2 (04:23→16:42)
[2016-04-07] MEDS: INSULIN ASPART 100 UNITS/ML 3 ML PEN SC SCH ×6 (04:25→23:44)
[2016-04-07 05:54] LABS: INR 1.1 (0.9-1.1); PARTIAL THROMBOPLASTIN RATIO 2.1; PROTHROMBIN TIME (PATIENT) 11.6 SECONDS (9.0-12.0)
[2016-04-07 06:06] LABS: BUN/CREATININE RATIO 17.1 (10-20); CALCIUM 8.5 mg/dl (8.5-10.1); CREATININE 0.86 mg/dl (0.60-1.40); POTASSIUM 3.8 mmol/L (3.5-5.1)
[2016-04-07] MEDS: HEPARIN 25,000 UNIT/500ML D5W 500 ML IV PRN ×2 (06:40→19:12)
[2016-04-07] MEDS: FUROSEMIDE 40 MG TAB PO SCH (07:54)
[2016-04-07] MEDS: FLUTICASONE PROPIONATE NA SPR 16 GM BTL NAE SCH (07:55)
[2016-04-07] MEDS: LISINOPRIL 20 MG TAB PO SCH ×2 (07:55→19:36)
[2016-04-07] MEDS: RANITIDINE HCL 150 MG TAB PO SCH ×2 (07:55→19:35)
[2016-04-07] MEDS: MUPIROCIN 2% OINT 22 GM TUBE EXT SCH ×2 (07:56→19:35)
[2016-04-07] MEDS: CYANOCOBALAMIN 1000 MCG/ML VIAL IM SCH (07:56)
[2016-04-07] MEDS: INSULIN GLARGINE SOLOSTAR 100 UNITS/ML 3 ML PEN SC SCH ×2 (08:16→20:53)
--- NOTE | 2016-04-07 09:46 | Pharmacy Progress Note ---
Glycemic Control: Progress Nt Date of Service Apr 07, 2016. Scope Glycemic Pharmacist consulted by Dr Hernandez on 04/03/16 for glycemic control and to write orders per [facility] inpatient glycemic control protocol. Objective Accuchecks BSG (last 24hrs): Test 04/06/16 11:11 04/06/16 15:46 04/06/16 19:58 04/06/16 23:49 Bedside Glucose 216 mg/dl (70-99) 184 mg/dl (70-99) 213 mg/dl (70-99) 210 mg/dl (70-99) Test 04/07/16 04:20 04/07/16 05:14 04/07/16 06:39 Bedside Glucose 196 mg/dl (70-99) 155 mg/dl (70-99) Random Glucose 185 mg/dl (70-99) Laboratory Data (last 24hrs) Test 04/07/16 05:14 Anion Gap 8.0 mmol/L BUN/Creatinine Ratio 17.1 Blood Urea Nitrogen 15 mg/dl Creatinine 0.86 mg/dl Potassium Level 3.8 mmol/L Sodium Level 141 mmol/L HbA1c: Test 04/06/16 07:00 Hemoglobin A1c 10.2 % (4.5-5.6) H Recent Pertinent Medications Outpatient Anti-diabetic Regimen: * NPH 110 units HS * Regular insulin 120 units with breakfast only * metformin 1000 mg PO BID with meals * A1c = 10.6 % 02/02/16 The patient is currently receiving: * Basal insulin: Lantus 45 units SQ BID * Correctional Insulin: NovoLog Correction per scale AC+HS+00+04 Goal Range: Low 110 mg/dL - High 140 mg/dL Correction Factor: 8 mg/dL/unit * Prandial insulin: Per carb ratio of 1 unit per 2.5 grams CHO consumed * Oral Agents: on hold Risk Factors for Insulin Resistance: * Infection: cellulitis/bacteremia on vanco IV - day #6 * Diet: T2DM/AHA * IV fluids: heparin infusion (source of IV dextrose) Assessment & Plan ASSESSMENT: * 60 yo M admitted with cellulitis, initiated on broad spectrum antibiotics, found to be hypoglycemic on admission * Per MD, this is likely due to recent dietary changes and a possible misdoing of insulin [employer]? * Patient takes NPH 110 units at bedtime + Regular insulin 120 units at breakfast only * Recently he has changed to high protein diet without speaking with PCP and has not changed insulin with this diet * He notes BSGs near 400 mg/dL at times * Recommend CDE see this patient 04/03/16 * BSGs on admission treated with several sandwiches and D50 bolus in the ED * BSGs today >250 mg/dL likely due to basal deficiency and loose NovoLog scale ( given morbid obesity) * Now that patient is no longer hypoglycemic and BSGs on the rise--> initiate weight-based basal/bolus regimen * I will start with a stress of 2 for basal insulin and near that for NovoLog-- > tighten tomorrow if necessary * Add 00,04 checks as we begin to titrate insulin 04/05/16 * BSGs continued to rise yesterday throughout the day * increase basal insulin by ~20% today * tighten NovoLog parameters since seeing rise throughout the day with current regimen * heparin infusion started last evening * constant infusion of dextrose may also be causing rise in BSGs * Large doses of insulin at home - concerning to emulate this secondary to hypoglycemia on admission * using weight based dosing and titrating daily 04/06/16 * BSGs remain above goal despite increases in basal and bolus doses of insulin - secondary to stress of illness, IV dextrose infusion? * continue to titrate NovoLog parameters accordingly * Fasting BSG again elevated today * increase BID doses of Lantus by ~20% * CDE met with patient yesterday to discuss discharge plans - * patient not agreeable to trying a new regimen, he will follow up as an outpatient * education provided on dosing regular insulin with meals to prevent hypoglycemia 04/07/16 * BSGs continue to be elevated yesterday despite ~200 units of insulin administered * this is near home needs, however A1c elevated so Mr. Dodson may require even higher amounts * Slight improvement with fasting BSG this morning * continue to titrate upwards until goal met * Further tighten NovoLog until goal met PLAN FOR INPATIENT GLYCEMIC CONTROL: * Holding outpatient oral diabetes medications * Lantus 50 units SQ BID * give 25 units if BSG is below 140mg/dL * Correctional Insulin with NOVOLOG per scale AC+HS+02 * Goal Range: Low 110 mg/dL - High 140 mg/dL * Correction Factor: 7 mg/dL/unit * Carb ratio of 1 unit per 2 grams CHO consumed * A1c within 90 days, indicative of poor glycemic control, will add to D/C instructions * CDE consulted to help with discharge instructions RECOMMENDATIONS FOR DISCHARGE: * follow up with outpatient provider per patient wishes * Please note that the plan above was derived based on current level of insulin resistance and hospital stress. These recommendations are appropriate for inpatient admission only. Plan of care upon discharge will need to be reassessed to avoid potential outpatient hypo/hyperglycemia. Thank you.
[2016-04-07] MEDS ORDERED: WARFARIN SOD 5 MG TAB PO SCH (16:00)
[2016-04-07] MEDS: WARFARIN SOD 10 MG TAB PO SCH (16:28)
--- NOTE | 2016-04-07 19:30 | Progress Note ---
Subjective Date of Service: Apr 07, 2016. Subjective Pt evaluation today including: conversation w/ patient, physical exam, chart review, lab review, conversation w/ lifestyle consultant (Dr. Lincoln - coumadin clinic), review of inpatient medication list Pain: none reported PO Intake: normal Voiding: no voiding problems tele overnight normal; no bradycardia or dysrhythmia feels good overall no sob/dyspnea using CPAP at HS w/o difficulty Problem List Medical Problems: (1) Cellulitis Status: Acute (2) Hypoglycemia Status: Acute (3) Sepsis Status: Acute (4) Weakness Status: Acute Review of Systems Respiratory: No cough, No dyspnea on exertion, No shortness of breath Cardiac: No chest pain, No orthopnea Abdomen: No pain Objective Vital Signs Date Time Temp Pulse Resp B/P Pulse Ox O2 Delivery O2 Flow Rate FiO2 04/07/16 16:00 93 Room Air 04/07/16 13:06 36.2 78 20 116/82 93 Room Air 04/07/16 12:02 Room Air 04/07/16 11:08 37.0 66 21 131/71 98 Room Air 04/07/16 08:02 Room Air 04/07/16 07:13 36.8 76 20 118/71 98 CPAP 04/07/16 04:32 36.7 68 18 128/72 100 04/07/16 04:00 CPAP 04/07/16 00:00 36.8 69 20 133/65 100 CPAP 04/07/16 00:00 CPAP 04/06/16 20:45 97 3.5 04/06/16 20:00 Room Air Physical Exam General Appearance: no apparent distress, + obese ENT: pharynx normal Neck: no JVD Respiratory/Chest: lungs clear, no respiratory distress, no accessory muscle use Cardiovascular: regular rate, rhythm, no gallop, no murmur Abdomen: normal bowel sounds, non tender, soft, no organomegaly Extremities: + pedal edema (right foot worse than left foot), + swelling ( right leg worse than left leg ) Neurologic/Psychiatric: alert, oriented x 3 Skin: no rash (no cellulitis of either leg ) Laboratory Results Last 24 Hours Test 04/06/16 19:58 04/06/16 23:49 04/07/16 04:20 04/07/16 05:14 Bedside Glucose 213 mg/dl 210 mg/dl 196 mg/dl Prothrombin Time 11.6 SECONDS Prothromb Time International Ratio 1.1 Activated Partial Thromboplast Time 54.6 SECONDS Partial Thromboplastin Ratio 2.1 Sodium Level 141 mmol/L Potassium Level 3.8 mmol/L Chloride Level 104 mmol/L Carbon Dioxide Level 29 mmol/L Anion Gap 8.0 mmol/L Blood Urea Nitrogen 15 mg/dl Creatinine 0.86 mg/dl Est Creatinine Clear Calc Drug Dose 156.5 ml/min Estimated GFR () 110.0 Estimated GFR (Non- 94.9 BUN/Creatinine Ratio 17.1 Random Glucose 185 mg/dl Calcium Level 8.5 mg/dl Test 04/07/16 06:39 04/07/16 11:07 04/07/16 16:04 Bedside Glucose 155 mg/dl 259 mg/dl 204 mg/dl Assessment and Plan 60yo male: 1. b/l LE cellulitis - resolved. cont vanco (see below). day #6 of such. 2. sepsis 2nd to #2 with bacteremia - resolved. repeat blood cx's negative confirming sterility of blood. coag negative staph in 1/2 sets of blood cultures from admission. suspect true pathogen. cont vanco - day #6/14. 3. extensive RLE DVT - No signs/symptoms of PEs. In light of extent of DVT and his morbid obesity would NOT use a NOAC and instead use heparin drip with coumadin. Day #4 of coumadin - increase to 20mg at least for 1-2 days. PT, PTT, INR in am. cause??? no risk factors for such. there IS a family history of DVT/PE - brother, and daughter (had VTE in her 20s) . Daughter has factor V Leiden. He very well may have latter issue. Checked Factor V Leiden, homocysteine -- both pending. 4. hypoglycemia - resolved. 5. T2DM - labile and uncontrolled but now improved. appreciate pharmacy recommendations. 6. metabolic encephalopathy 2nd to #4 - resolved. 7. RLE paresthesias - MRI brain neg. L-spine MRI without cord or nerve compromise. Perhaps 2nd to diabetic neuropathy. DVT pain could be playing a role as well. B12 level is low - could be contributing - started replacement. 8. morbid obesity with BMI 61 9. HTN - control adequate. 10. b12 def - b12 1000mcg IM daily for 1 week, then weekly, then monthly; could consider PO replacement down the line. 11. bradycardia - resolved; was 2nd to beta mynor; this has been stopped. 12. CHRISTIANO - CPAP transfer to med/surg Continued [facility] stay due to: multiple IV medications needed Discharge planning: home
[2016-04-08] MEDS ORDERED: VANCOMYCIN TROUGH SCH (03:30)
[2016-04-08] MEDS: INSULIN ASPART 100 UNITS/ML 3 ML PEN SC SCH ×5 (04:00→21:27)
[2016-04-08 04:05] LABS: HEMATOCRIT 43.1 % (42-52); MEAN CELL VOLUME 84.8 fL (80-100); MEAN CORPUSCULAR HEMOGLOBIN 28.3 pg (25-34); MEAN CORPUSCULAR HGB CONC 33.4 g/dl (32-36); MEAN PLATELET VOLUME 10.8 fL (7.4-10.4); PLATELET COUNT 288 K/uL (130-400); RED BLOOD COUNT 5.08 M/uL (4.7-6.1); WHITE BLOOD COUNT 7.32 K/uL (4.8-10.8)
[2016-04-08] MEDS: VANCOMYCIN INJ 2,250 MG in SODIUM CHLORIDE 0.9% 500ML 500 ML IV SCH (04:11)
[2016-04-08 04:24] LABS: INR 1.1 (0.9-1.1); PROTHROMBIN TIME (PATIENT) 12.2 SECONDS (9.0-12.0)
[2016-04-08 06:57] VITALS: BP 135/72; PULSE 66; TEMP 36.4; O2SAT 99
[2016-04-08] MEDS: FLUTICASONE PROPIONATE NA SPR 16 GM BTL NAE SCH (08:00)
--- NOTE | 2016-04-08 08:16 | Hospitalist Progress Note ---
Hospitalist Progress Note Date of Service Apr 08, 2016. (Althea Armando PA-C) Subjective Pt evaluation today including: conversation w/ patient, physical exam, chart review, lab review, review of studies, review of inpatient medication list Pain: None PO Intake: Good Voiding: no voiding problems The patient was seen and examined this morning. Pt reports doing well, he has no complaints. Denies pain in legs or that swelling has worsened. He notes there is some improvement in the erythema of his left leg. His face is healing well from recent skin breakout, pt does report it was initially itchy and had yellow-clear drainage- improving with bacitracin. All Other Systems: Reviewed and Negative (other than listed above.) (Althea Armando PA-C) Objective Vital Signs Date Time Temp Pulse Resp B/P Pulse Ox O2 Delivery O2 Flow Rate FiO2 04/08/16 06:57 36.4 66 18 135/72 99 BiPAP 2.0 04/08/16 00:00 Room Air 04/07/16 23:45 36.3 75 20 150/72 100 BiPAP 3.0 04/07/16 22:28 98 4.0 04/07/16 16:00 93 Room Air 04/07/16 13:06 36.2 78 20 116/82 93 Room Air 04/07/16 12:02 Room Air 04/07/16 11:08 37.0 66 21 131/71 98 Room Air (Althea Armando PA-C) Physical Exam General Appearance: WD/WN, no apparent distress, + obese, + pertinent finding ( + scabbing over bilateral cheeks and upper lip) Eyes: PERRL, EOMI ENT: hearing grossly normal, pharynx normal Neck: no JVD Respiratory/Chest: lungs clear, normal breath sounds, no respiratory distress, no accessory muscle use Cardiovascular: regular rate, rhythm, no murmur Abdomen: normal bowel sounds, non tender, + pertinent finding (pannis) Extremities: non-tender, no calf tenderness, + pedal edema, + pertinent finding (+ venous stasis changes bilaterally, worse swelling of the RLE compared to the LLE.) Neurologic/Psychiatric: no motor/sensory deficits, alert, oriented x 3 Skin: normal color, warm/dry (Althea Armando PA-C) Laboratory Results Last 24 Hours Test 04/07/16 11:07 04/07/16 16:04 04/07/16 20:14 04/08/16 03:50 Bedside Glucose 259 mg/dl 204 mg/dl 199 mg/dl White Blood Count 7.32 K/uL Red Blood Count 5.08 M/uL Hemoglobin 14.4 g/dL Hematocrit 43.1 % Mean Corpuscular Volume 84.8 fL Mean Corpuscular Hemoglobin 28.3 pg Mean Corpuscular Hemoglobin Concent 33.4 g/dl RDW Standard Deviation 42.4 fL RDW Coefficient of Variation 13.7 % Platelet Count 288 K/uL Mean Platelet Volume 10.8 fL Prothrombin Time 12.2 SECONDS Prothromb Time International Ratio 1.1 Activated Partial Thromboplast Time 51.9 SECONDS Partial Thromboplastin Ratio 2.0 Vancomycin Level Trough 19.6 mcg/ml (Althea Armando PA-C) Assessment and Plan 60yo male: b/l LE cellulitis - resolved. - Cont Vanc, day #7 Sepsis 2nd to #2 with bacteremia - resolved. - repeat blood cx's negative confirming sterility of blood. Coag negative staph in 1/2 sets of blood cultures from admission. - suspect true pathogen. - cont vanco - day #7/14. Extensive RLE DVT - No signs/symptoms of PEs. - In light of extent of DVT and his morbid obesity would NOT use a NOAC and instead use heparin drip with coumadin. - Day #5 of coumadin - increase to 20mg at least for 1-2 days - was recommended by Dr. Aguila in the coumadin clinic - PT, PTT, INR in am. cause??? - no risk factors for such. - there IS a family history of DVT/PE - brother, and daughter (had VTE in her 20s). Daughter has factor V Leiden. - He very well may have latter issue. - Checked Factor V Leiden, homocysteine -- both pending. Hypoglycemia - resolved. T2DM - labile and uncontrolled but now improved. appreciate pharmacy recommendations. Metabolic encephalopathy 2nd to #4 - resolved. RLE paresthesias - MRI brain neg. L-spine MRI without cord or nerve compromise. - Perhaps 2nd to diabetic neuropathy. - DVT pain could be playing a role as well. - B12 level is low - could be contributing - started replacement. Morbid obesity with BMI 61 HTN - control adequate. B12 def - b12 1000mcg IM daily for 1 week, then weekly, then monthly; could consider PO replacement down the line. Vit D deficiency - pt takes 50,000 U every Monday. - requesting this as an inpatient - will order for then. Bradycardia - resolved; was 2nd to beta mynor; this has been stopped. CHRISTIANO - CPAP CODE STATUS: Full resuscitation Disposition: From home, await therapeutic INR likely over the weekend, needs 14 day abx course. (Althea Armando, CHLOE) Attending Attestation: Pt seen/examined, chart reviewed, care plan d/w TIAN Armando. I agree w/ the corona components of her documentation. No events overnight Feels good Denies dyspnea, sob at rest, chest pain, abd pain VSS afebrile gen - nad skin - no cellulitis on legs; rash on b/l cheeks (face) resolving neck - no JVD heart - RRR, s1, s2 lungs - cta b/l abd - soft, obese ext - edema b/l, worse on right - no change INR 1.1 A/P: 1. RLE DVT - heparin drip w/ coumadin; give 20mg of coumadin today, suspect we will need to lower tomorrow. Daily INR and PTT. 2. sepsis/bacteremia 2nd to coag neg staph - day #7 of IV vanco. 3. b/l LE cellulitis - resolved. Finish vanco. other plans per Ms. Armando's documentation. Hay ADRIAN MD (Zak Adrian MD)
[2016-04-08] MEDS: RANITIDINE HCL 150 MG TAB PO SCH ×2 (09:16→19:48)
[2016-04-08] MEDS: LISINOPRIL 20 MG TAB PO SCH ×2 (09:17→19:48)
[2016-04-08] MEDS: FUROSEMIDE 40 MG TAB PO SCH (09:17)
[2016-04-08] MEDS: CYANOCOBALAMIN 1000 MCG/ML VIAL IM SCH (09:19)
[2016-04-08] MEDS: MUPIROCIN 2% OINT 22 GM TUBE EXT SCH ×2 (09:21→19:47)
[2016-04-08] MEDS: INSULIN GLARGINE SOLOSTAR 100 UNITS/ML 3 ML PEN SC SCH ×2 (09:25→21:28)
[2016-04-08] MEDS: OXYCODONE/ACETAMINOPHEN 10/325MG TAB PO PRN ×4 (09:33→23:58)
--- NOTE | 2016-04-08 12:16 | Pharmacy Progress Note ---
Pharmacy Antibiotic Prog Note Date of Service: Apr 08, 2016. Subjective: The patient is currently receiving vancomycin 2250 mg iv q 12 hrs The patient is currently on day # 7 of IV therapy. Objective: Height (Feet): 5 Height (Inches): 10.00 Weight (Kilograms): 188.900 Levels: Item Value Date Time Vancomycin Level Trough 19.6 mcg/ml 04/08/16 0350 Lab Results (24hrs): Laboratory Tests Test 04/08/16 03:50 White Blood Count 7.32 K/uL Micro Results: Item Value Date Time Blood Culture - Preliminary Resulted 04/06/16 0700 Blood NO GROWTH TO DATE. Blood Culture - Preliminary Resulted 04/06/16 0641 Blood NO GROWTH TO DATE. Urine Culture - Final Complete 04/02/16 1350 Urine , Clean Catch THREE TYPES OF ORGANISMS PRESENT, ALL... Blood Culture - Final Complete 04/01/16 1856 Blood Coag Neg Staphylococcus Blood Culture - Final Complete 04/01/16 1839 Blood NO GROWTH Assessment & Plan: Patient on vancomycin for cellulitis and positive blood cultures (CORN GRINDER believe to be true pathogen per MD notes). Repeat BC are no growth. Vancomycin: * Trough level this am was ~19 mcg/ml (goal 15-20 mcg/ml for bacteremia) * Dose was previously decreased prophylactically for elevated BMI of patient and risk of accumulation; since trough at higher end of goal range will again prophylactically decrease the dose since patient appears to be accumulating it quickly * Will decrease the dose to 1750 mg (~9 mg/kg) iv q 12 hours to target a lower trough * Renal function remains stable, CrCl today >100 ml/min * Will plan to obtain trough prior to the 0400 dose on 04/10 to ensure therapeutic Pharmacy will continue to follow and will adjust dose/frequency as necessary. Thank you
[2016-04-08] MEDS: NYSTATIN POWDER 15GM BTL EXT SCH ×3 (13:45→19:48)
[2016-04-08] MEDS: NYSTATIN CR 15 GM TUBE EXT SCH ×3 (13:45→19:47)
[2016-04-08 15:12] VITALS: BP 119/93; PULSE 80; TEMP 36.8; O2SAT 94
[2016-04-08] MEDS ORDERED: ERGOCALCIFEROL 50,000 INTER.UNIT CAP PO ONE (15:15)
[2016-04-08] MEDS: WARFARIN SOD 10 MG TAB PO SCH (15:34)
[2016-04-08] MEDS: VANCOMYCIN INJ 1,750 MG in SODIUM CHLORIDE 0.9% 500ML 500 ML IV SCH (15:38)
[2016-04-08] MEDS: HEPARIN 25,000 UNIT/500ML D5W 500 ML IV PRN (15:59)
[2016-04-08 16:00] VITALS: O2SAT 94
[2016-04-08 23:17] VITALS: PULSE 85; O2SAT 95
[2016-04-09 00:05] VITALS: BP 157/85; PULSE 79; TEMP 36.7; O2SAT 93
[2016-04-09] MEDS: INSULIN ASPART 100 UNITS/ML 3 ML PEN SC SCH ×6 (00:05→20:23)
[2016-04-09] MEDS: HEPARIN 25,000 UNIT/500ML D5W 500 ML IV PRN ×3 (02:19→22:28)
[2016-04-09] MEDS: VANCOMYCIN INJ 1,750 MG in SODIUM CHLORIDE 0.9% 500ML 500 ML IV SCH (04:26)
[2016-04-09 07:11] LABS: INR 1.6 (0.9-1.1); PARTIAL THROMBOPLASTIN RATIO 2.7; PROTHROMBIN TIME (PATIENT) 17.7 SECONDS (9.0-12.0)
[2016-04-09 07:15] VITALS: BP 129/80; PULSE 76; TEMP 36.7; O2SAT 100
--- NOTE | 2016-04-09 07:28 | Hospitalist Progress Note ---
Hospitalist Progress Note Date of Service Apr 09, 2016. (Althea Armando PA-C) Subjective Pt evaluation today including: conversation w/ patient, physical exam, chart review, lab review, review of studies, review of inpatient medication list Pain: none PO Intake: good Voiding: no voiding problems The patient was seen and examined this morning. Patient reports feeling well. He slept well overnight. Patient reports IV site in the right forearm blew this morning, while antibiotic was running in. He reports the site is very painful and has a ice pack over the area. There is some surrounding erythema, has not noticed that it's extending up his arm. The patient reports his lower legs appear to be less swollen and less red today. Patient has been ambulating without difficulty. He denies fevers, chills, sweats, shortness of breath, chest pain, abdominal pain. All Other Systems: Reviewed and Negative (other than listed above) (Althea Armando PA-C) Objective Vital Signs Date Time Temp Pulse Resp B/P Pulse Ox O2 Delivery O2 Flow Rate FiO2 04/09/16 07:15 36.7 76 16 129/80 100 04/09/16 00:05 36.7 79 20 157/85 93 BiPAP 04/09/16 00:00 CPAP 04/08/16 23:17 85 95 4.0 04/08/16 16:00 94 Room Air 04/08/16 15:12 36.8 80 20 119/93 94 Room Air 04/08/16 09:46 Room Air (Althea Armando PA-C) Physical Exam General Appearance: WD/WN, no apparent distress, + obese (morbid obesity) Eyes: PERRL, EOMI ENT: hearing grossly normal, pharynx normal, + pertinent finding (facial lesions on bilateral cheeks and upper lip are improving) Neck: supple, no JVD Respiratory/Chest: chest non-tender, lungs clear, no respiratory distress, no accessory muscle use Cardiovascular: regular rate, rhythm, no murmur Abdomen: normal bowel sounds, non tender, soft, + pertinent finding (obese) Extremities: non-tender, + pertinent finding (+ chronic venous stasis changes bilateral LE. + Dusky red appearance, + left forearm IV site with 2 cm lesion, + surrounding erythema was outlined at bedside.) Neurologic/Psychiatric: no motor/sensory deficits, alert, oriented x 3, + sensory deficit (peripheral neuropathy BLE) Skin: normal color, warm/dry (Althea Armando PA-C) Laboratory Results Last 24 Hours Test 04/08/16 07:35 04/08/16 11:36 04/08/16 16:19 04/08/16 20:17 Bedside Glucose 113 mg/dl 213 mg/dl 191 mg/dl 189 mg/dl Test 04/09/16 00:01 04/09/16 06:45 Bedside Glucose 188 mg/dl Prothrombin Time 17.7 SECONDS Prothromb Time International Ratio 1.6 Activated Partial Thromboplast Time 69.3 SECONDS Partial Thromboplastin Ratio 2.7 (Althea Armando PA-C) Assessment and Plan 60yo male: Infiltration of IV site in RUE - Vanc was infusing and infiltated - Started on cold compresses and silvadene - Discussion, Perla Bower MD with plastics - reports there is nothing further at this time to do other than to watch for necrosis of the site. - Continue Silvadene and cold compresses. - Will change antibiotic to zyvoxx 600 mg Q12, po, today as pharmacy notes this has good bioavailability to cover for bacteremia, will avoid the possibility of infiltrating another site. B/l LE cellulitis - resolving. - Cont Vanc, day #8 - change abx to zyvoxx as above. Sepsis 2nd to #2 with bacteremia - resolved. - repeat blood cx's negative confirming sterility of blood. Coag negative staph in 1/2 sets of blood cultures from admission. - suspect true pathogen. - cont vanco - day #8/14 - switch abx to zyvoxx as above Extensive RLE DVT - No signs/symptoms of PEs. - In light of extent of DVT and his morbid obesity would NOT use a NOAC and instead use heparin drip with coumadin. - Day #6 of coumadin - INR has reached 1.6 with 2 days of coumadin 20 mg - we'll drop dosage of Coumadin to 15 mg today. - PT, PTT, INR in am. - Unknown cause at this time - no risk factors for such. - There IS a family history of DVT/PE - brother, and daughter (had VTE in her 20s). Daughter has factor V Leiden. - He very well may have asthma - Checked Factor V Leiden, homocysteine -- both pending. T2DM - labile and uncontrolled but now improved. appreciate pharmacy recommendations. - Discussion on diet and exercise were held. - Patient's sugars have been running in the 150s - well controlled at this time - HgbA1C = 10.2 on 04/06 Metabolic encephalopathy secondary to sepsis from cellulitis- resolved. RLE paresthesias - MRI brain neg. L-spine MRI without cord or nerve compromise. - Perhaps 2nd to diabetic neuropathy. - DVT pain could be playing a role as well. - B12 level is low - could be contributing - started replacement. Morbid obesity with BMI 60 Facial rash - ? lf impetigo as was previously itchy with yellow crusting over bilateral cheeks - Bacitracin ointment ordered and is improving HTN - control adequate. B12 def - b12 1000mcg IM daily for 1 week, then weekly, then monthly; could consider PO replacement down the line. Vit D deficiency - pt takes 50,000 U every Monday. - requesting this as an inpatient - will order for then. Bradycardia - resolved; was 2nd to beta mynor; this has been stopped. CHRISTIANO - CPAP - Patient was asked to wash straps from CPAP machine with possibility of having impetigo. CODE STATUS: Full resuscitation Disposition: From home, await therapeutic INR likely over the weekend, needs 14 day abx course. (Althea Armando, CHLOE) Attending Attestation: Pt seen/examined, chart reviewed, care plan d/w TIAN Armando. I agree w/ the corona components of her documentation except - on physical exam the infiltrated IV site is RIGHT arm. IV in right arm infiltrated this AM while vancomycin was infusing. he reports pain and tenderness no fever eating well no new complaints except right arm issue VSS afebrile gen - nad skin - no cellulitis on legs; rash on b/l cheeks (face) all crusted and look good right arm - former IV site shows a 2cm area of white skin; surrounding this is several centimeters of pink/slightly erythematous skin; there is scan drainage from the actual IV site but no dalton purulent drainage neck - no JVD heart - RRR, s1, s2 lungs - cta b/l abd - soft, obese ext - edema b/l but IMPROVED; right leg edema is modestly worse than left leg INR 1.6 CBC nl A/P: 1. RLE DVT - heparin drip w/ coumadin; INR now 1.6. Coumadin was given as follows - 04/04 and 04/05 - 7.5mg 04/06 - 10mg 04/07 and 04/08 - 20mg back coumadin down to 15mg today INR and PTT in am 2. sepsis/bacteremia 2nd to coag neg staph - day #09/19 of abx. In light of IV vanco issue will d/c and change to PO zyvox. 3. b/l LE cellulitis - resolved. Finish abx course w/ zyvox. 4. Right arm infiltrated IV w/ vanco - I spoke with our pharmacy staff regarding management of this issue. Appreciate their assistance. We spoke with plastics and wound care. I also spoke with the pharmacy dept at [facility]. Hyaluronidase injections were not recommended by [facility] for this issue. Will continue topical treatments - xeroform was recommended by wound care. Will consult plastics and/or wound care attending on Monday for additional recommendations and/or debridement if that is needed. Certainly if he needs earlier consultation will do so. Hay ADRIAN MD (Zak Adrian MD)
[2016-04-09] MEDS: FLUTICASONE PROPIONATE NA SPR 16 GM BTL NAE SCH (08:00)
[2016-04-09] MEDS: NYSTATIN CR 15 GM TUBE EXT SCH ×3 (08:10→20:18)
[2016-04-09] MEDS: NYSTATIN POWDER 15GM BTL EXT SCH ×3 (08:10→20:17)
[2016-04-09] MEDS: MUPIROCIN 2% OINT 22 GM TUBE EXT SCH ×2 (08:10→20:17)
[2016-04-09] MEDS: RANITIDINE HCL 150 MG TAB PO SCH ×2 (08:11→20:19)
[2016-04-09] MEDS: LISINOPRIL 20 MG TAB PO SCH ×2 (08:11→20:19)
[2016-04-09] MEDS: FUROSEMIDE 40 MG TAB PO SCH (08:11)
[2016-04-09] MEDS: CYANOCOBALAMIN 1000 MCG/ML VIAL IM SCH (08:11)
[2016-04-09] MEDS: OXYCODONE/ACETAMINOPHEN 10/325MG TAB PO PRN ×2 (08:14→16:35)
[2016-04-09] MEDS: INSULIN GLARGINE SOLOSTAR 100 UNITS/ML 3 ML PEN SC SCH ×2 (08:22→20:24)
[2016-04-09] MEDS ORDERED: NURSING VERBAL MED ORDER ONE ×2 (11:00→16:00)
[2016-04-09] MEDS ORDERED: SILVER SULFADIAZINE 1% CR 50 GM JAR EXT ONE (11:15)
--- NOTE | 2016-04-09 13:28 | Pharmacy Progress Note ---
Glycemic: Assessment & Plan Date of Service Apr 09, 2016. Assessment & Plan The patient is currently receiving +200 units of insulin per day. BSGs ranging 93 - 191 mg/dl over the past 24hrs. * Basal insulin: Lantus 50 units every 12 hours , or 25 units for BSG below 140 mg/dl * Correctional Insulin: Novolog Correction per scale ACHS Goal Range: Low 110 mg/dL - High 140 mg/dL Correction Factor: 7 mg/dL/unit * Prandial insulin: Per carb ratio of 1 unit per 2 grams CHO consumed BSGs continue to improve, no changes needed to inpatient regimen at this time. Pharmacy will continue to monitor patient daily and write orders per [facility] inpatient glycemic control protocol. Thanks. * Please note that the plan above was derived based on current level of insulin resistance and hospital stress. These recommendations are appropriate for inpatient admission only. Plan of care upon discharge will need to be reassessed to avoid potential outpatient hypo/hyperglycemia.
[2016-04-09 16:02] VITALS: BP 117/70; PULSE 77; TEMP 36.6; O2SAT 95
[2016-04-09 16:15] VITALS: O2SAT 95
[2016-04-09] MEDS: LINEZOLID 600 MG TAB PO SCH (16:35)
[2016-04-09] MEDS: WARFARIN SOD 5 MG TAB PO SCH (16:37)
[2016-04-09] MEDS ORDERED: SILVER SULFADIAZINE 1% CR 50 GM JAR EXT SCH (20:00)
[2016-04-09 21:53] VITALS: PULSE 77; O2SAT 97
[2016-04-09 23:46] VITALS: BP 107/68; PULSE 84; TEMP 36.5; O2SAT 96
[2016-04-10] MEDS: OXYCODONE/ACETAMINOPHEN 10/325MG TAB PO PRN ×3 (01:46→16:03)
[2016-04-10] MEDS ORDERED: VANCOMYCIN TROUGH ONE (03:30)
[2016-04-10 07:08] LABS: HEMATOCRIT 42.1 % (42-52); MEAN CELL VOLUME 86.4 fL (80-100); MEAN CORPUSCULAR HGB CONC 33.5 g/dl (32-36); MEAN PLATELET VOLUME 10.8 fL (7.4-10.4); PLATELET COUNT 258 K/uL (130-400); RED BLOOD COUNT 4.87 M/uL (4.7-6.1); WHITE BLOOD COUNT 6.43 K/uL (4.8-10.8)
[2016-04-10 07:20] VITALS: BP 134/73; PULSE 72; TEMP 36.6; O2SAT 93
[2016-04-10 07:26] LABS: INR 1.8 (0.9-1.1); PARTIAL THROMBOPLASTIN RATIO 3.1; PROTHROMBIN TIME (PATIENT) 19.6 SECONDS (9.0-12.0)
[2016-04-10] MEDS: CYANOCOBALAMIN 1000 MCG/ML VIAL IM SCH (07:38)
[2016-04-10] MEDS: MUPIROCIN 2% OINT 22 GM TUBE EXT SCH ×2 (07:38→20:52)
[2016-04-10] MEDS: FUROSEMIDE 40 MG TAB PO SCH (07:38)
[2016-04-10] MEDS: LINEZOLID 600 MG TAB PO SCH ×2 (07:39→21:00)
[2016-04-10] MEDS: RANITIDINE HCL 150 MG TAB PO SCH ×2 (07:39→21:00)
[2016-04-10] MEDS: LISINOPRIL 20 MG TAB PO SCH ×2 (07:39→21:00)
[2016-04-10 07:44] LABS: BUN/CREATININE RATIO 17.9 (10-20); CALCIUM 8.7 mg/dl (8.5-10.1); CREATININE 1.1 mg/dl (0.60-1.40); POTASSIUM 4.3 mmol/L (3.5-5.1)
[2016-04-10] MEDS: INSULIN GLARGINE SOLOSTAR 100 UNITS/ML 3 ML PEN SC SCH (07:47)
[2016-04-10] MEDS: FLUTICASONE PROPIONATE NA SPR 16 GM BTL NAE SCH (07:48)
[2016-04-10] MEDS: NYSTATIN CR 15 GM TUBE EXT SCH ×3 (07:48→20:52)
[2016-04-10] MEDS: NYSTATIN POWDER 15GM BTL EXT SCH ×3 (07:48→20:52)
[2016-04-10 07:54] LABS: BETA-HYDROXYBUTYRATE 1.8 mg/dL (0.2-2.81)
--- NOTE | 2016-04-10 08:03 | Hospitalist Progress Note ---
Hospitalist Progress Note Date of Service Apr 10, 2016. (Althea Armando PA-C) Subjective Pt evaluation today including: conversation w/ patient, physical exam, chart review, lab review, review of studies, review of inpatient medication list Pain: minimal right forearm surrounding IV infiltration site PO Intake: good Voiding: no voiding problems The patient was seen and examined this morning. Patient reports feeling well. Patient reports his right forearm mildly sore especially when he touches this, it has improved with Silvadene and with cold compress. He reports his leg pain is improving, swelling improving. Antibiotic regimen was changed from vancomycin to Zyvox last evening. Patient reports he has been up walking without difficulty, having bowel movements, eating well. He denies any acute complaints. Discussion was held regarding INR levels to 1.8 today, anticipate that INR will be between 2-3 tomorrow, and that he may be able to be discharged. All Other Systems: Reviewed and Negative (other than listed above) (Althea Armando PA-C) Objective Vital Signs Date Time Temp Pulse Resp B/P Pulse Ox O2 Delivery O2 Flow Rate FiO2 04/10/16 07:20 36.6 72 20 134/73 93 04/10/16 00:00 CPAP 04/09/16 23:46 36.5 84 18 107/68 96 BiPAP 04/09/16 21:53 77 97 4.0 04/09/16 16:15 95 Room Air 04/09/16 16:02 36.6 77 20 117/70 95 Room Air 04/09/16 08:00 Room Air (Althea Armando PA-C) Physical Exam General Appearance: WD/WN, no apparent distress, + obese (morbid obesity, BMI= 60), + pertinent finding (facial rash over upper cheeks/upper lip is scabbed over, nondraining.) Eyes: PERRL, EOMI ENT: hearing grossly normal, pharynx normal Neck: supple, no JVD (physical to determine due to body habitus) Respiratory/Chest: chest non-tender, lungs clear, normal breath sounds, no respiratory distress, no accessory muscle use Cardiovascular: regular rate, rhythm, no murmur Abdomen: normal bowel sounds, non tender, soft, + pertinent finding (obese) Extremities: non-tender, no calf tenderness, + pertinent finding (+ bilateral lower extremity with dusky red appearance. +1 pitting edema, NTTP. Right upper extremity: 2 cm white area of ischemia where IV site was previously and vancomycin infiltrated, surrounding erythema has become less prominent, no drainage from site. ) Neurologic/Psychiatric: alert, normal mood/affect, oriented x 3 Skin: warm/dry (Atlhea Armando PA-C) Laboratory Results Last 24 Hours Test 04/09/16 08:12 04/09/16 12:03 04/09/16 16:55 04/09/16 20:09 Bedside Glucose 100 mg/dl 151 mg/dl 153 mg/dl 205 mg/dl Test 04/10/16 06:43 04/10/16 07:18 White Blood Count 6.43 K/uL Red Blood Count 4.87 M/uL Hemoglobin 14.1 g/dL Hematocrit 42.1 % Mean Corpuscular Volume 86.4 fL Mean Corpuscular Hemoglobin 29.0 pg Mean Corpuscular Hemoglobin Concent 33.5 g/dl RDW Standard Deviation 44.5 fL RDW Coefficient of Variation 14.1 % Platelet Count 258 K/uL Mean Platelet Volume 10.8 fL Prothrombin Time 19.6 SECONDS Prothromb Time International Ratio 1.8 Activated Partial Thromboplast Time 81.6 SECONDS Partial Thromboplastin Ratio 3.1 Sodium Level 137 mmol/L Potassium Level 4.3 mmol/L Chloride Level 101 mmol/L Carbon Dioxide Level 27 mmol/L Anion Gap 9.0 mmol/L Blood Urea Nitrogen 20 mg/dl Creatinine 1.10 mg/dl Est Creatinine Clear Calc Drug Dose 122.3 ml/min Estimated GFR () 84.7 Estimated GFR (Non- 73.1 BUN/Creatinine Ratio 17.9 Random Glucose 312 mg/dl Calcium Level 8.7 mg/dl Beta-Hydroxybutyric Acid 1.80 mg/dL Bedside Glucose 271 mg/dl (Althea Armando PA-C) Assessment and Plan 60yo male: Infiltration of IV site in RUE, forearm - Vanc was infusing and infiltrated on 04/09 - Started on cold compresses, silvadene, Xeroform per pharmacy recs - Discussion with Perla Bower MD with plastics - reports there is nothing further at this time to do other than to watch for necrosis of the site- she is agreeable consultation tomorrow morning if worsening, at this time appears to be improving - Continue Silvadene and cold compresses. Appreciate pharmacy and wound care recs. -Antibiotic changed to zyvoxx 600 mg Q12, po, on 04/09 as pharmacy notes this has good bioavailability to cover for bacteremia, will avoid the possibility of infiltrating another site. B/l LE cellulitis - resolving. - Stopped Vanc- had 8 days, now switched to zyvoxx(day 1) Sepsis 2nd to #2 with bacteremia - resolved. - repeat blood cx's negative confirming sterility of blood. Coag negative staph in 1/2 sets of blood cultures from admission. - suspect true pathogen. - Stopped Vanc- had 8 days, now switched to zyvoxx(day1) Extensive RLE DVT - No signs/symptoms of PEs. - In light of extent of DVT and his morbid obesity would NOT use a NOAC and instead use heparin drip with coumadin. Day #7 of coumadin - INR= 1.8 - Cont Coumadin 15 mg today. - PT, PTT, INR in am. - Unknown cause at this time - no risk factors for such. - There IS a family history of DVT/PE - brother, and daughter (had VTE in her 20s). Daughter has factor V Leiden. - He very well may have asthma - Checked Factor V Leiden, homocysteine -- both pending. T2DM - labile and uncontrolled but now improved. appreciate pharmacy recommendations. - Discussion on diet and exercise were held. - Patient's sugars have been running in the 150s - well controlled at this time - HgbA1C = 10.2 on 04/06 Metabolic encephalopathy secondary to sepsis from cellulitis- resolved. RLE paresthesias - MRI brain neg. L-spine MRI without cord or nerve compromise. - Perhaps 2nd to diabetic neuropathy. - DVT pain could be playing a role as well. - B12 level is low - could be contributing - started replacement. Morbid obesity with BMI 60 Facial rash - ? lf impetigo as was previously itchy with yellow crusting over bilateral cheeks - Bacitracin ointment ordered and is improving HTN - control adequate. B12 def - b12 1000mcg IM daily for 1 week, then weekly, then monthly; could consider PO replacement down the line. Vit D deficiency - pt takes 50,000 U every Monday. - requesting this as an inpatient - will order for then. Bradycardia - resolved; was 2nd to beta mynor; this has been stopped. CHRISTIANO - CPAP - Patient was asked to wash straps from CPAP machine with possibility of having impetigo. CODE STATUS: Full resuscitation Disposition: From home, await therapeutic INR likely over the weekend, needs 14 day abx course (day 9 today), likely discharge home tomorrow (Althea Armando, CHLOE) Attending Attestation: Pt seen/examined, chart reviewed, care plan d/w TIAN Armando. I agree w/ the corona components of her documentation. No issues overnight. He states the right arm feels better. Denies fever. Eating fine. No dyspnea. VSS afebrile gen - nad, obese skin - no cellulitis on legs; rash on b/l cheeks (face) all crusted and nearly resolved right arm - former IV site shows a 2cm area of white skin; surrounding this is several centimeters of pink/slightly erythematous skin - it is less intense in color today; there is less swelling overall in the forearm; no skin breakdown or actual necrosis; no dalton drainage neck - no JVD heart - RRR, s1, s2 lungs - cta b/l abd - soft, obese ext - edema unchanged b/l legs; right calf much larger in size than left calf INR 1.8 FSBS > 200 A/P: 1. RLE DVT - heparin drip w/ coumadin; INR now 1.8. Coumadin was given as follows - 04/04 and 04/05 - 7.5mg 04/06 - 10mg 04/07 and 04/08 - 20mg 04/09 - 15mg cont 15mg daily daily INR and PTT will need 2-day overlap w/ heparin once INR is >2 2. sepsis/bacteremia 2nd to coag neg staph - day #10/20 of abx. Received 8 days vanco, now on zyvox to finish the course. repeat blood cx's negative suggesting blood is sterile. 3. b/l LE cellulitis - resolved. Finish abx course w/ zyvox. 4. Right arm infiltrated IV w/ vanco - cont xeroform or silvadene cream - whichever wound care team prefers. Will consult plastics and/or wound care attending on Monday for additional recommendations and/or debridement if that is needed. 5. uncontrolled T2DM - pharmacy was previously consulted for management & they continue to follow. 6. impetigo on face - nearly resolved. progressing nicely Zak Adrian MD (Zak Adrian MD)
[2016-04-10] MEDS: HEPARIN 25,000 UNIT/500ML D5W 500 ML IV PRN ×3 (08:35→20:59)
[2016-04-10] MEDS: INSULIN ASPART 100 UNITS/ML 3 ML PEN SC SCH (08:49)
[2016-04-10] MEDS: INSULIN ASPART 100 UNITS/ML VIAL SC SCH ×3 (12:53→20:57)
[2016-04-10 13:59] LABS: PARTIAL THROMBOPLASTIN RATIO 2.2
[2016-04-10 14:56] VITALS: BP 139/72; PULSE 61; TEMP 36.7; O2SAT 94
[2016-04-10 16:00] VITALS: O2SAT 94
[2016-04-10] MEDS: WARFARIN SOD 5 MG TAB PO SCH (16:04)
[2016-04-10] MEDS: INSULIN GLARGINE SC SCH (20:58)
[2016-04-10 23:48] VITALS: BP 169/75; PULSE 61; TEMP 36.7; O2SAT 95
[2016-04-11 07:20] VITALS: BP 163/64; PULSE 61; TEMP 36.8; O2SAT 98
[2016-04-11] MEDS: FLUTICASONE PROPIONATE NA SPR 16 GM BTL NAE SCH (08:00)
[2016-04-11 08:01] LABS: PROTHROMBIN TIME (PATIENT) 21.5 SECONDS (9.0-12.0)
[2016-04-11 08:14] LABS: CREATININE 1.1 mg/dl (0.60-1.40)
[2016-04-11 08:22] LABS: PARTIAL THROMBOPLASTIN RATIO 2.8
[2016-04-11] MEDS: RANITIDINE HCL 150 MG TAB PO SCH ×2 (08:23→20:44)
[2016-04-11] MEDS: LISINOPRIL 20 MG TAB PO SCH ×2 (08:24→20:44)
[2016-04-11] MEDS: LINEZOLID 600 MG TAB PO SCH ×2 (08:24→20:45)
[2016-04-11] MEDS: FUROSEMIDE 40 MG TAB PO SCH (08:24)
[2016-04-11] MEDS: CYANOCOBALAMIN 1000 MCG/ML VIAL IM SCH (08:25)
[2016-04-11] MEDS: NYSTATIN POWDER 15GM BTL EXT SCH ×3 (08:25→20:43)
[2016-04-11] MEDS: NYSTATIN CR 15 GM TUBE EXT SCH ×3 (08:25→20:43)
[2016-04-11] MEDS: MUPIROCIN 2% OINT 22 GM TUBE EXT SCH ×2 (08:25→20:43)
[2016-04-11] MEDS: INSULIN ASPART 100 UNITS/ML VIAL SC SCH ×4 (08:31→20:47)
[2016-04-11] MEDS: INSULIN GLARGINE SC SCH ×2 (08:32→20:49)
[2016-04-11] MEDS: OXYCODONE/ACETAMINOPHEN 10/325MG TAB PO PRN ×2 (08:36→20:44)
[2016-04-11] MEDS: HEPARIN 25,000 UNIT/500ML D5W 500 ML IV PRN (09:40)
--- NOTE | 2016-04-11 12:13 | Pharmacy Progress Note ---
Glycemic Control: Progress Nt Date of Service Apr 11, 2016. Scope Glycemic Pharmacist consulted by on 04/03/16 for glycemic control and to write orders per [facility] inpatient glycemic control protocol. Objective Accuchecks BSG (last 24hrs): Test 04/10/16 16:19 04/10/16 20:40 04/11/16 07:33 04/11/16 11:24 Bedside Glucose 272 mg/dl (70-99) 249 mg/dl (70-99) 207 mg/dl (70-99) 328 mg/dl (70-99) Laboratory Data (last 24hrs) Test 04/11/16 07:30 Creatinine 1.10 mg/dl HbA1c: Test 04/06/16 07:00 Hemoglobin A1c 10.2 % (4.5-5.6) H Recent Pertinent Medications Outpatient Anti-diabetic Regimen: * NPH 110 units HS * Regular insulin 120 units with breakfast only * metformin 1000 mg PO BID with meals * A1c = 10.2% on 04/06/16 Risk Factors for Insulin Resistance: * Infection: cellulitis/bacteremia was on Vanc IV, then changed to Zyvox PO d/t infiltration of Vanc. 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 * Patient takes NPH 110 units at bedtime + Regular insulin 120 units at breakfast only * Recently he has changed to high protein diet without speaking with PCP and has not changed insulin with this diet * He notes BSGs near 400 mg/dL at times * Recommend CDE see this patient 04/04/16 * BSGs on admission treated with several sandwiches and D50 bolus in the ED * BSGs today >250 mg/dL likely due to basal deficiency and loose NovoLog scale ( given morbid obesity) * Now that patient is no longer hypoglycemic and BSGs on the rise--> initiate weight-based basal/bolus regimen * I will start with a stress of 2 for basal insulin and near that for NovoLog-- > tighten tomorrow if necessary * Add 00,04 checks as we begin to titrate insulin 04/05/16 * BSGs continued to rise yesterday throughout the day * increase basal insulin by ~20% today * tighten NovoLog parameters since seeing rise throughout the day with current regimen * heparin infusion started last evening * constant infusion of dextrose may also be causing rise in BSGs * Large doses of insulin at home - concerning to emulate this secondary to hypoglycemia on admission * using weight based dosing and titrating daily 04/06/16 * BSGs remain above goal despite increases in basal and bolus doses of insulin - secondary to stress of illness, IV dextrose infusion? * continue to titrate NovoLog parameters accordingly * Fasting BSG again elevated today * increase BID doses of Lantus by ~20% * CDE met with patient yesterday to discuss discharge plans - * patient not agreeable to trying a new regimen, he will follow up as an outpatient * education provided on dosing regular insulin with meals to prevent hypoglycemia 04/07/16 * BSGs continue to be elevated yesterday despite ~200 units of insulin administered * this is near home needs, however A1c elevated so Mr. Dodson may require even higher amounts * Slight improvement with fasting BSG this morning * continue to titrate upwards until goal met * Further tighten NovoLog until goal met 04/11/16 * BSG control has worsened in the past 24 hours. BSGs ranging 207 - 312 mg/dl in the past 24 hours. TDD of insulin 260 units yesterday. * Significant insulin resistance + noncompliant with diet. * Spoke to pt's RN via phone who reports pt is snacking b/t meals. She educated pt on diet and importance of compliance to DM regimen. * FBG this morning was 207 mg/dl. Will increase Lantus by ~20%. * Novolog parameters are already aggressive, however, BSGs are uncontrolled indicating need for additional coverage. Therefore, will tighten Novolog parameters in an effort to regain control of BSGs. * Add overnight BSG check to resolve potential overnight hyperglycemia. Will loosen Novolog CF/CR at overnight check. PLAN FOR INPATIENT GLYCEMIC CONTROL: * Holding outpatient oral diabetes medications * Increase - Lantus SQ BID * BSG 100 mg/dl and below - 15 units * BSG 101 - 120 mg/dl - 30 units * BSG 121 mg/dl and above - 60 units * Tighten - Correctional Insulin with NOVOLOG per scale AC+HS+02 * Goal Range: Low 110 mg/dL - High 140 mg/dL * Correction Factor: 5 mg/dL/unit * Carb ratio of 1 unit per 1.5 grams CHO consumed * Looser Parameters at 0200: CF of 7, CR of 2 * A1c within 90 days, indicative of poor glycemic control, will add to D/C instructions * Please note that the plan above was derived based on current level of insulin resistance and hospital stress. These recommendations are appropriate for inpatient admission only. Plan of care upon discharge will need to be reassessed to avoid potential outpatient hypo/hyperglycemia. Thank you.
[2016-04-11 14:37] VITALS: Ht 177.8 cm; Wt 188.9 kg
[2016-04-11 14:42] VITALS: BP 157/65; PULSE 65; TEMP 36.4; O2SAT 95
[2016-04-11 15:19] LABS: PARTIAL THROMBOPLASTIN RATIO 2.1
[2016-04-11 16:00] VITALS: O2SAT 95
[2016-04-11] MEDS: WARFARIN SOD 5 MG TAB PO SCH (16:05)
--- NOTE | 2016-04-11 18:55 | Hospitalist Progress Note ---
Hospitalist Progress Note Date of Service Apr 11, 2016. Subjective Pt evaluation today including: conversation w/ patient, physical exam, chart review, lab review, review of studies, review of inpatient medication list I took care of this patient first days of his admission. He is in good spirits today. He has no complaints. INR is therapeutic therefore the heparin was able to be D/C'd. He is anticipating going home in 2 days. I am thinking he can be ready tomorrow. Additional Comments: A 10 system review was performed and all were negative. Positives were placed in the subjective section. Objective Vital Signs Date Time Temp Pulse Resp B/P Pulse Ox O2 Delivery O2 Flow Rate FiO2 04/11/16 16:00 95 Room Air 04/11/16 14:42 36.4 65 16 157/65 95 Room Air 04/11/16 08:00 Room Air 04/11/16 07:20 36.8 61 18 163/64 98 CPAP 04/11/16 00:00 Room Air 04/10/16 23:48 36.7 61 20 169/75 95 CPAP 4.0 Physical Exam Notes: GEN: Awake, alert, and oriented x 3. Not in acute distress HEENT: Tm's intact, no inflammation, EOMI, PERRLA, MMM Neck: Soft, supple Lungs: CTA b/l, no r/r/w Heart: REG, nrl S1S2 without murmurs, rubs or gallops Abdomen: Soft, NT, ND, + BS EXT: No C/C/E NEURO: CN's II-XII grossly intact, non-focal Skin: warm, dry, no rashes PSYCH: pleasant, cooperative. Laboratory Results Last 24 Hours Test 04/10/16 20:40 04/11/16 07:30 04/11/16 07:33 04/11/16 11:24 Bedside Glucose 249 mg/dl 207 mg/dl 328 mg/dl Prothrombin Time 21.5 SECONDS Prothromb Time International Ratio 2.0 Activated Partial Thromboplast Time 73.2 SECONDS Partial Thromboplastin Ratio 2.8 Creatinine 1.10 mg/dl Est Creatinine Clear Calc Drug Dose 122.3 ml/min Estimated GFR () 84.7 Estimated GFR (Non- 73.1 Test 04/11/16 14:42 Activated Partial Thromboplast Time 54.7 SECONDS Partial Thromboplastin Ratio 2.1 Assessment and Plan 1) DVT Right lower extremity. - therapeutic on warfarin at 2.0 today. Heparin gtt D/C'd. 2) Type II DM - pharmacist for glycemic control continues to follow and adjust. 3) Cellulitis b/l lower extremities - This has since resolved. Continues on Zyvox oral dosing. 4) Right lower extremity paraesthesia and transient weakness - This has been a chronic issue for this patient. His MRI of the LS spine did not reveal pathology to explain his symptoms. 5) GERD - no symptom breakthrough. 6) Morbid Obesity 7) Bacteremia - 1/2 bottles now on oral Zyvox. Considering discharge tomorrow.
[2016-04-11 22:40] VITALS: PULSE 81; O2SAT 96
[2016-04-11 23:13] VITALS: BP 115/63; PULSE 67; TEMP 37.1; O2SAT 98
[2016-04-12] MEDS ORDERED: INSULIN ASPART 100 UNITS/ML VIAL SC SCH (02:00)
[2016-04-12 06:57] VITALS: BP 134/83; PULSE 72; TEMP 36.6; O2SAT 95
[2016-04-12 07:31] LABS: HEMATOCRIT 42.8 % (42-52); MEAN CELL VOLUME 85.3 fL (80-100); MEAN CORPUSCULAR HEMOGLOBIN 27.9 pg (25-34); MEAN CORPUSCULAR HGB CONC 32.7 g/dl (32-36); MEAN PLATELET VOLUME 10.9 fL (7.4-10.4); PLATELET COUNT 254 K/uL (130-400); RED BLOOD COUNT 5.02 M/uL (4.7-6.1); WHITE BLOOD COUNT 6.84 K/uL (4.8-10.8)
[2016-04-12 07:39] LABS: INR 1.9 (0.9-1.1); PARTIAL THROMBOPLASTIN RATIO 1.4; PROTHROMBIN TIME (PATIENT) 21.4 SECONDS (9.0-12.0)
[2016-04-12 07:45] VITALS: O2SAT 95
[2016-04-12] MEDS: FUROSEMIDE 40 MG TAB PO SCH (08:35)
[2016-04-12] MEDS: RANITIDINE HCL 150 MG TAB PO SCH ×2 (08:35→20:47)
[2016-04-12] MEDS: MUPIROCIN 2% OINT 22 GM TUBE EXT SCH ×2 (08:35→20:46)
[2016-04-12] MEDS: LISINOPRIL 20 MG TAB PO SCH ×2 (08:35→20:47)
[2016-04-12] MEDS: LINEZOLID 600 MG TAB PO SCH ×2 (08:36→20:47)
[2016-04-12] MEDS: FLUTICASONE PROPIONATE NA SPR 16 GM BTL NAE SCH (08:36)
[2016-04-12] MEDS: CYANOCOBALAMIN 1000 MCG/ML VIAL IM SCH (08:37)
[2016-04-12] MEDS: NYSTATIN POWDER 15GM BTL EXT SCH ×3 (08:38→20:46)
[2016-04-12] MEDS: NYSTATIN CR 15 GM TUBE EXT SCH ×3 (08:38→20:46)
[2016-04-12] MEDS: OXYCODONE/ACETAMINOPHEN 10/325MG TAB PO PRN ×3 (08:40→19:21)
[2016-04-12] MEDS: INSULIN ASPART 100 UNITS/ML VIAL SC SCH ×4 (08:44→21:53)
[2016-04-12] MEDS: INSULIN GLARGINE SC SCH ×2 (08:45→21:52)
[2016-04-12] MEDS ORDERED: NURSING DECISION MEDICATION ORDER SCH (10:00)
[2016-04-12] MEDS ORDERED: MICONAZOLE NITRATE POWDER 43 GM EXT PRN (10:00)
--- NOTE | 2016-04-12 13:02 | Hospitalist Progress Note ---
Hospitalist Progress Note Date of Service Apr 12, 2016. Subjective Pt evaluation today including: conversation w/ patient, physical exam, chart review, lab review, review of studies, review of inpatient medication list Patient is in good spirits. Offering no new concerns or complaints today. He feels he is ready to go home tomorrow. Additional Comments: A 10 system review was performed and all were negative. Positives were placed in the subjective section. Objective Vital Signs Date Time Temp Pulse Resp B/P Pulse Ox O2 Delivery O2 Flow Rate FiO2 04/12/16 07:45 95 Room Air 04/12/16 06:57 36.6 72 16 134/83 95 BiPAP 04/12/16 00:00 CPAP 04/11/16 23:13 37.1 67 20 115/63 98 BiPAP 3.0 04/11/16 22:40 81 96 4.0 04/11/16 16:00 95 Room Air 04/11/16 14:42 36.4 65 16 157/65 95 Room Air Physical Exam Notes: GEN: Awake, alert, and oriented x 3. Not in acute distress HEENT: Tm's intact, no inflammation, EOMI, PERRLA, MMM Neck: Soft, supple Lungs: CTA b/l, no r/r/w Heart: REG, nrl S1S2 without murmurs, rubs or gallops Abdomen: Soft, NT, ND, + BS EXT: No C/C/E NEURO: CN's II-XII grossly intact, non-focal Skin: warm, dry, no rashes. Right mid lower arm (flexor surface) shows a central white colored area with diameter of erythema surrounding. No drainage. No sign of secondary infection. PSYCH: pleasant, cooperative. Laboratory Results Last 24 Hours Test 04/11/16 13:42 04/11/16 14:42 04/11/16 16:32 04/11/16 19:56 Bedside Glucose 279 mg/dl 100 mg/dl 129 mg/dl Activated Partial Thromboplast Time 54.7 SECONDS Partial Thromboplastin Ratio 2.1 Test 04/12/16 01:44 04/12/16 06:50 04/12/16 07:53 04/12/16 11:16 Bedside Glucose 151 mg/dl 159 mg/dl 238 mg/dl White Blood Count 6.84 K/uL Red Blood Count 5.02 M/uL Hemoglobin 14.0 g/dL Hematocrit 42.8 % Mean Corpuscular Volume 85.3 fL Mean Corpuscular Hemoglobin 27.9 pg Mean Corpuscular Hemoglobin Concent 32.7 g/dl RDW Standard Deviation 44.4 fL RDW Coefficient of Variation 14.2 % Platelet Count 254 K/uL Mean Platelet Volume 10.9 fL Prothrombin Time 21.4 SECONDS Prothromb Time International Ratio 1.9 Activated Partial Thromboplast Time 36.9 SECONDS Partial Thromboplastin Ratio 1.4 Assessment and Plan 1) DVT Right lower extremity. - Continue warfarin. His PCP Dr. Nevarez will manage as an outpatient. 2) Type II DM - pharmacist for glycemic control continues to follow and adjust. 3) Cellulitis b/l lower extremities - This has since resolved. Continues on Zyvox oral dosing. 4) Right lower extremity paraesthesia and transient weakness - This has been a chronic issue for this patient. 5) GERD - no symptom breakthrough. 6) Morbid Obesity 7) Bacteremia - on oral Zyvox. Planning for discharge to home under his own care tomorrow.
[2016-04-12 14:39] VITALS: BP 143/77; PULSE 66; TEMP 36.8; O2SAT 95
[2016-04-12] MEDS: WARFARIN SOD 5 MG TAB PO SCH (16:05)
[2016-04-12 20:45] VITALS: BP 164/85; PULSE 75
[2016-04-12 22:34] VITALS: PULSE 81; O2SAT 96
[2016-04-13 00:17] VITALS: BP 136/71; PULSE 59; TEMP 36.9; O2SAT 93
[2016-04-13 06:27] LABS: PARTIAL THROMBOPLASTIN RATIO 1.5
[2016-04-13] MEDS: FLUTICASONE PROPIONATE NA SPR 16 GM BTL NAE SCH (07:29)
[2016-04-13] MEDS: NYSTATIN POWDER 15GM BTL EXT SCH (07:29)
[2016-04-13] MEDS: CYANOCOBALAMIN 1000 MCG/ML VIAL IM SCH (07:29)
[2016-04-13] MEDS: NYSTATIN CR 15 GM TUBE EXT SCH (07:29)
[2016-04-13] MEDS: MUPIROCIN 2% OINT 22 GM TUBE EXT SCH (07:29)
[2016-04-13] MEDS: RANITIDINE HCL 150 MG TAB PO SCH (07:30)
[2016-04-13] MEDS: LISINOPRIL 20 MG TAB PO SCH (07:30)
[2016-04-13] MEDS: FUROSEMIDE 40 MG TAB PO SCH (07:30)
[2016-04-13] MEDS: LINEZOLID 600 MG TAB PO SCH (07:30)
[2016-04-13 07:35] VITALS: BP 110/67; PULSE 65; TEMP 36.6; O2SAT 97
[2016-04-13] MEDS: OXYCODONE/ACETAMINOPHEN 10/325MG TAB PO PRN (07:36)
[2016-04-13] MEDS: INSULIN GLARGINE SC SCH (08:25)
[2016-04-13] MEDS: INSULIN ASPART 100 UNITS/ML VIAL SC SCH ×2 (08:25→12:59)
[2016-04-13 09:04] LABS: INR 2.1 (0.9-1.1); PROTHROMBIN TIME (PATIENT) 23.1 SECONDS (9.0-12.0)
--- NOTE | 2016-04-13 10:46 | Pharmacy Progress Note ---
Glycemic Control: Progress Nt Date of Service Apr 13, 2016. Scope Glycemic Pharmacist consulted by Dr Hernandez on 04/03/16 for glycemic control and to write orders per [facility] inpatient glycemic control protocol. Objective Accuchecks BSG (last 24hrs): Test 04/12/16 11:16 04/12/16 16:36 04/12/16 20:45 04/12/16 21:42 Bedside Glucose 238 mg/dl (70-99) 248 mg/dl (70-99) 249 mg/dl (70-99) 198 mg/dl (70-99) Test 04/13/16 07:38 Bedside Glucose 87 mg/dl (70-99) HbA1c: Test 04/06/16 07:00 Hemoglobin A1c 10.2 % (4.5-5.6) H Recent Pertinent Medications Outpatient Anti-diabetic Regimen: * NPH 110 units HS * Regular insulin 120 units with breakfast only * metformin 1000 mg PO BIDM * A1c = 10.6 % 02/02/16 Risk Factors for Insulin Resistance: * Infection: cellulitis/bacteremia was on Vanc IV, then changed to Zyvox PO d/t infiltration of Vanc. * Diet: T2DM/AHA Assessment & Plan ASSESSMENT: 04/13/16 * 60 yo M admitted with cellulitis, found to be hypoglycemic on admission * Since admission, BSGs have been controlled at points, but mostly elevated due to poor diet/noncompliance * On , CDE met with patient: * patient not agreeable to trying a new regimen, he will follow up as an outpatient * education provided on dosing regular insulin with meals to prevent hypoglycemia * We have continued to rogelio his poor glycemic control with more insulin, but at this point, I do not want to make any further changes * If he continues to eat between meals/not get his carbs covered, his blood sugars will be elevated * This regimen is appropriate for this patient if he did not snack between meals /overeat carbohydrates; when we tightened his carb coverage from 2 to 1.5 it did not work in our favor as patient decided to eat >200 g CHO which would have given him a dangerously high amount of insulin * Continue Lantus scale as this will help prevent Fasting lows and remove 0200 check as his problem is continuous eating, not basal deficiency * ADA & AACE recommend a goal blood sugar range 140-180 mg/dl for the majority of critically ill & non-critically ill patients. However, more stringent targets may be selected in individual cases. Tighten to 100-140 mg/dL to facilitate treatment of cellulitis. PLAN FOR INPATIENT GLYCEMIC CONTROL: * Holding outpatient oral diabetes medications * Continue Lantus SQ BID * BSG 100 mg/dl and below - 15 units * BSG 101 - 120 mg/dl - 30 units * BSG 121 mg/dl and above - 60 units * Continue Correctional Insulin with NOVOLOG per scale ACHS * Goal Range: Low 110 mg/dL - High 140 mg/dL * Correction Factor: 5 mg/dL/unit * Carb ratio of 1 unit per 2 grams CHO consumed * A1c within 90 days, indicative of poor glycemic control, will add to D/C instructions
[2016-04-13] MEDS ORDERED: WARF7.5T PO (11:08)
[2016-04-13] MEDS ORDERED: LINE1TAB6 PO (11:08)
--- NOTE | 2016-04-13 11:20 | Discharge Instructions ---
Discharge Instructions Date of Service Apr 13, 2016. Admission Reason for Admission: Hypoglycemia, Weakness Discharge Discharge Diagnosis / Problem: Lower extremity cellulitis/Right DVT Discharge Goals Goal(s): Decrease discomfort, Improve disease control Activity Recommendations Activity Limitations: resume your previous activity . Instructions / Follow-Up Instructions / Follow-Up PCP, Dr. Pyle this saturday 04/15 as scheduled. instructional services specialist Dr. Antony Bunch on 04/20 at 1:40pm. We had suggested adjustments to your insulin regiment, however, you wished to continue that which you had been doing and discuss with your PCP. Because you had symptomatic hypoglycemia, we are suggesting that instead of using 100+ units of Regular insulin in the morning, to instead use 35 units with each of 3 meals a day. The total regular insulin would remain the same, but you would spread this fast acting insulin throughout the day. Current Hospital Diet Patient's current hospital diet: Diabetes Type 2 Diet, AHA Diet (Heart Healthy) Discharge Diet Recommended Diet: AHA Diet (Heart Healthy), Diabetes Type 2 Diet Procedures Procedures Performed: NONE. Pending Studies Studies pending at discharge: no Laboratory Results Last 24 Hours Test 04/12/16 16:36 04/12/16 20:45 04/12/16 21:42 04/13/16 05:55 Bedside Glucose 248 mg/dl 249 mg/dl 198 mg/dl Prothrombin Time 23.1 SECONDS Prothromb Time International Ratio 2.1 Activated Partial Thromboplast Time 38.3 SECONDS Partial Thromboplastin Ratio 1.5 Test 04/13/16 07:38 Bedside Glucose 87 mg/dl Hemoglobin A1c Test 04/06/16 07:00 Range/Units Estimated Average Glucose 246 mg/dl Hemoglobin A1c 10.2 H 4.5-5.6 % Medical Emergencies . Who to Call and When: Medical Emergencies: If at any time you feel your situation is an emergency, please call 911 immediately. . Non-Emergent Contact Non-Emergency issues call your: Primary Care Provider . . "Provider Documentation" section prepared by Ramone Hernandez. VTE Core Measure Inpt VTE Proph given/why not?: Warfarin (Coumadin), SCD's
[2016-04-13 11:38] VITALS: BP 110/67; PULSE 65; TEMP 36.6; O2SAT 97
--- NOTE | 2016-04-14 17:44 | Discharge Summary ---
Discharge Summary Date of Service Apr 14, 2016. Discharge Summary Admission Date: Apr 01, 2016 at 21:53 Discharge Date: Apr 13, 2016 Discharge Disposition: Home Principal Diagnosis: Lower extremity cellulitis Problems/Secondary Diagnoses: Hypoglycemia with altered mental status/Right DVT/Type II DM insulin requiring. Immunizations: Have You Had Influenza Vaccine: Yes History of Tetanus Vaccine?: Yes Tetanus Immunization Date: Aug 28, 2007 History of Pneumococcal: Yes History of Hepatitis B Vaccine: No Procedures: NONE. Consultations: Dr. Antony Bunch - customer account specialist. Medication Reconciliation New Medications: Linezolid (Zyvox) 600 Mg Tab 600 MG PO BID for 5 Days, #10 TAB NS Warfarin Sodium (Coumadin) 7.5 Mg Tab 2 TABS PO DAILY for 30 Days, #60 TAB Continued Medications: Albuterol Hfa (Ventolin Hfa) 200 Puffs/86362 Mcg Aers 2 PUFFS INH Q4H PRN for SOB/Wheezing, #1 INHALER Ergocalciferol (Vitamin D 18816 Unit) 50,000 Unit Cap 00716 UNIT PO WK, CAP Furosemide (Lasix) 40 Mg Tab 40 MG PO DAILY, TAB Insulin Human Regular (Novolin R) 1 Unit/1 Ml Inj 120 UNITS SC QAM Insulin Isophane (Human) (Novolin N Relion) 100 Unit/Ml Inj 110 UNITS SQ HS Lisinopril (Zestril) 20 Mg Tab 20 MG PO BID Metformin Hcl (Glucophage) 1,000 Mg Tab 1000 MG PO BID, TAB Mometasone Furoate (Nasal) (Mometasone Furoate) 50 Mcg/Act Spr 2 SPRAYS AMBER DAILY Oxycodone/Acetaminophen 10MG/325MG (Percocet 10MG/325MG) Tab 1 TAB PO Q6 PRN for Pain, TAB Ranitidine (Zantac) 150 Mg Tab 150 MG PO BID, TAB Discharge Exam A 10 system review was performed and all were negative. He does report chronic swelling to his lower extremities. GEN: Awake, alert, and oriented x 3. Not in acute distress HEENT: Tm's intact, no inflammation, EOMI, PERRLA, MMM Neck: Soft, supple Lungs: CTA b/l, no r/r/w Heart: REG, nrl S1S2 without murmurs, rubs or gallops Abdomen: Soft, NT, ND, + BS EXT: No C/C Chronic edema to lower legs b/l. NEURO: CN's II-XII grossly intact, non-focal Skin: chronic hemosiderin changes below knee b/l. right mid lower arm flexor surface shows an oval irregular shaped area that is white with surrounding erythema. PSYCH: pleasant, cooperative. Hospital Course Patient was admitted due to altered mental status/increased somnolence which was due to hypoglycemia. As this was corrected promptly in the ED, it became evident that he had a b/l lower extremity cellulitis. He was admitted for IV antibiotics. The first 18 hours he required D5 in IVF to maintain his sugar level as he had not been eating due to sedation, but had taken his insulin earlier on the day of admission. The patient was provided Lovenox for DVT prophylaxis which was further adjusted for his weight through the pharmacy. He complained of right calf pain and underwent U/S which showed a right DVT. He was placed on IV heparin and started on warfarin. when the INR was at 2.0 the heparin gtt was D/C'd. / initial blood cultures grew a coag neg staph. This required increased IV antibiotic coverage. As he was receiving Vancomycin his iv infiltrated causing local irriation and skin changes around the IV site as I described in the physical exam. He was followed by the wound team and saw Dr. Bunch who plans to follow as outpatient. Repeat blood cultures were negative x2. We discussed the possibility that the initial blood culture was skin contamination, but given his initial presentation and the presence of cellulitis on admission, it was felt most appropriate to continue antibiotics to completion. He had received PT/OT during his stay. He felt he could manage at home with his girlfriend of 30 years. Total Time Spent: Greater than 30 minutes This includes examination of the patient, discharge planning, medication reconciliation, and communication with other providers. Discharge Instructions Please refer to the electronic Patient Visit Report (Discharge Instructions) for additional information. Follow-Up See patient instruction sheet for these details.
[2016-04-20] MEDS ORDERED: LINE1TAB6 PO (14:05)
--- NOTE | 2016-04-20 14:51 | CONSULTATION REPORT ---
DATE OF CONSULTATION: 04/13/2016 CHIEF COMPLAINT: Abscess formation, right forearm. HISTORY OF PRESENT ILLNESS: The patient was recently admitted to [facility] on April 02 for evaluation of hypoglycemia and weakness. During patient's hospital course, he received vancomycin intravenously in his left arm. He developed an area of tenderness and swelling in the right forearm. This was noticed yesterday. The patient states he is still having some discomfort in this area. Denies any fever, chills or night sweats. The patient denies any nausea, vomiting, chest pain or shortness of breath. The patient denies any other systemic complaints at this time. PAST MEDICAL HISTORY: Positive for diabetes, congestive heart failure. SOCIAL HISTORY: The patient is a nonsmoker, lives at home. MEDICATIONS: Noted in the nursing notes and were reviewed. ALLERGIES: SULFA ANTIBIOTICS. REVIEW OF SYSTEMS: Ten systems were reviewed in their entirety and positive findings were noted in the chief complaint and history of present illness. PHYSICAL EXAMINATION: GENERAL: The patient is sitting in hospital bed in no acute distress, alert and cooperative throughout the examination. VITAL SIGNS: The vital signs were reviewed and found to be unremarkable. The patient is afebrile. HEENT: Pupils equal and reactive to light. Sclerae clear. NECK: Supple. CHEST: Heart and lungs clear to auscultation. EXTREMITIES: Reveal the presence of an area of necrotic tissue in the right forearm measuring 2.5 x 2 cm. There is just a minimal surrounding erythema noted, although less than the marker which is currently placed. There is no fluctuance, active drainage or significant tenderness to palpation present. NEUROLOGIC: The patient is alert and oriented x3. No focal deficits are noted. IMPRESSION: Abscess formation, right forearm. PLAN: The site will be dressed today with Aquacel Ag and gauze, changed daily. The patient will be followed up in the outpatient clinic upon discharge.
[2016-05-09] MEDS ORDERED: CIPR-255 PO (15:00)
[2016-05-09] MEDS ORDERED: CMD10 PO (16:30)
== END 2016-04-13 13:00 | disposition home or self-care (01) | DRG 871 ==
LOC: ENRESERVDT → ENRESERVTM → C.EDB 16:58 → C.EDINP 21:53 → C.MSICU 04-02 06:18 → C.2T 04-02 19:01 → C.MS4W 04-07 12:50
PROVIDERS: ADMIT Hospitalist; ATTEND Hospitalist
DX: A41.9 Sepsis, unspecified organism (principal); G93.41 Metabolic encephalopathy; Z68.43 Body mass index [BMI] 50.0-59.9, adult; L03.116 Cellulitis of left lower limb; L03.115 Cellulitis of right lower limb; I82.401 Acute embolism and thrombosis of unspecified deep veins of right lower extremity; E66.01 Morbid (severe) obesity due to excess calories; I10 Essential (primary) hypertension; E11.649 Type 2 diabetes mellitus with hypoglycemia without coma; Z79.4 Long term (current) use of insulin; I50.9 Heart failure, unspecified; K21.9 Gastro-esophageal reflux disease without esophagitis; J30.2 Other seasonal allergic rhinitis; R00.1 Bradycardia, unspecified; E53.8 Deficiency of other specified B group vitamins; G47.33 Obstructive sleep apnea (adult) (pediatric); R21 Rash and other nonspecific skin eruption; Z79.899 Other long term (current) drug therapy; Z83.3 Family history of diabetes mellitus; Z88.2 Allergy status to sulfonamides

== ENCOUNTER → 2016-04-15 | Outpatient (CLI) | payer OTHER ==
[~2016-04-15] MED LIST changes: +CMD10 PO; +ERGO500037 PO; -FURO-85 PO; +FURO40TA3 PO; -GLC500 PO; -INSHI7030 SC; +INSU0.01 SQ; -INSUINJ17 SC; +LINE1TAB6 PO; -MCRK20 PO; -MICO12CR TOP; +MOME6000 NAE; +NVLRB SC; +OXYC-106 PO; -SIMV40TA4 PO; -TYLOTC500 PO; +VNTHFA/IN INH; +WARF7.5T PO
[2016-04-15 16:35] LABS: INR 1.7 (0.9-1.1); PROTHROMBIN TIME (PATIENT) 18.5 SECONDS (9.0-12.0)
[2016-04-15 16:38] LABS: ALT/SGPT 35 U/L (12-78); BLOOD UREA NITROGEN 9 mg/dl (7-18); CARBON DIOXIDE 26 mmol/L (21-32); CHLORIDE 104 mmol/L (98-107); CREATININE 0.92 mg/dl (0.60-1.40); GLUCOSE 87 mg/dl (70-99); POTASSIUM 3.8 mmol/L (3.5-5.1); SODIUM 140 mmol/L (136-145)
[2016-04-15 16:41] LABS: ALB/GLOB RATIO 0.7 (0.9-2); ALKALINE PHOSPHATASE 65 U/L (45-117); AST/SGOT 39 U/L (15-37)
[2016-04-16 05:44] LABS: ESTIMATED AVERAGE GLUCOSE 260 mg/dl; HA1C FLAG Normal (Normal)
== END | disposition home or self-care (01) ==
LOC: C.LABBFT 14:13
PROVIDERS: ATTEND Nurse Practitioner
DX: E55.9 Vitamin D deficiency, unspecified (principal); E11.49 Type 2 diabetes mellitus with other diabetic neurological complication; I82.409 Acute embolism and thrombosis of unspecified deep veins of unspecified lower extremity

== ENCOUNTER → 2016-04-20 | Outpatient (CLI) | payer OTHER | END | disposition home or self-care (01) | LOC: C.LAB 16:45 | PROVIDERS: ATTEND Internal Medicine | DX: I82.409 Acute embolism and thrombosis of unspecified deep veins of unspecified lower extremity (principal) ==

== ENCOUNTER → 2016-04-22 | Outpatient (CLI) | payer OTHER ==
[2016-04-22 16:56] LABS: INR 1.9 (0.9-1.1); PROTHROMBIN TIME (PATIENT) 21.3 SECONDS (9.0-12.0)
== END | disposition home or self-care (01) ==
LOC: C.LABBFT 17:27
PROVIDERS: ATTEND Internal Medicine
DX: I82.409 Acute embolism and thrombosis of unspecified deep veins of unspecified lower extremity (principal)

== ENCOUNTER 2016-04-30 11:40 | Inpatient (IN) | payer OTHER ==
[~2016-04-30] VITALS: Ht 177.8 cm; Wt 177.0 kg
[~2016-04-30 11:40] MED LIST changes: -CIPR-255 PO; -CMD10 PO; -LINE1TAB6 PO
--- NOTE | 2016-04-30 12:16 | EMERGENCY ROOM VISIT NOTE ---
History Report prepared by Ang: Toro Pendleton Under the Supervision of: Dr. Adrian Barajas M.D. First contact with patient: 12:03 Chief Complaint: FLU LIKE SX Stated Complaint: CHILLS,FEVER,WEAKNESS History of Present Illness The patient is a 60 year old male who presents to the Emergency Room with complaints of persistent generalized weakness since yesterday. The patient also complains of intermittent fevers and chills since yesterday. The patient is having trouble even standing up from bed secondary to weakness. The patient complains of right leg pain associated with diagnosed blood clots. He is on Coumadin, which he did not yet take today. The patient was in the hospital two weeks ago, per the patient's daughter. The patient denies abdominal pain. He denies any significant weight changes recently. The patient is preparing for bariatric surgery. The patient is diabetic. Source of History: patient, family (daughter) Onset: yesterday Position: other (generalized) Quality: other (weakness) Timing: other (persistent) Associated Symptoms: + chills, + fevers, No abdominal pain Review of Systems All systems have been listed, reviewed, and are negative other than those previously mentioned. Please see Additional Medical History Sheet. Past Medical & Surgical Medical Problems: (1) Diabetes mellitus (2) History of CHF (congestive heart failure) (3) Sepsis Family History Diabetes mellitus Social History Smoking Status: Never Smoker Drug Use: none Marital Status: single Housing Status: other Occupation Status: retired Current/Historical Medications Scheduled Ergocalciferol (Vitamin D 48288 Unit), 50,000 UNIT PO WK Furosemide (Lasix), 40 MG PO DAILY Insulin Human Regular (Novolin R), 120 UNITS SC QAM Insulin Isophane (Human) (Novolin N Relion), 110 UNITS SQ HS Lisinopril (Zestril), 20 MG PO BID Metformin Hcl (Glucophage), 1,000 MG PO BID Mometasone Furoate (Nasal) (Mometasone Furoate), 2 SPRAYS AMBER DAILY Ranitidine (Zantac), 150 MG PO BID Warfarin Sodium (Coumadin), 2 TABS PO DAILY Scheduled PRN Albuterol Hfa (Ventolin Hfa), 2 PUFFS INH Q4H PRN for SOB/Wheezing Oxycodone/Acetaminophen 10MG/325MG (Percocet 10MG/325MG), 1 TAB PO Q6 PRN for Pain Allergies Coded Allergies: Sulfa Antibiotics (Verified Allergy, Intermediate, HIVES, 04/01/16) Physical Exam Vital Signs Date Time Temp Pulse Resp B/P Pulse Ox O2 Delivery O2 Flow Rate FiO2 04/30/16 16:37 99 16 170/69 94 04/30/16 15:30 37.0 91 22 164/83 95 Room Air 04/30/16 14:42 99 18 135/76 95 Room Air 04/30/16 11:44 37.4 105 22 119/75 99 Room Air Physical Exam GENERAL: Patient awake, alert, oriented x 3. Patient follows commands. Patient does not appear toxic. Patient is adequately hydrated and well- nourished. SKIN: No erythema, pallor, cyanosis or rash HEENT: Normal head, pupils equal, reactive to light and accommodation. LUNGS: Clear to auscultation. No wheezes, no rales, no rhonchi. HEART: No murmurs. No gallops. No rubs ABDOMEN: Morbidly obese. EXTREMITIES: Healing ulcer right mid forearm. Firm right calf with bruise over the posterior aspect. NEUROLOGIC: Cranial nerves II-XII within normal limits. No gross motor sensory function deficits. Medical Decision & Procedures ER Provider Diagnostic Interpretation: Radiology results as stated below per my review and radiologist interpretation: SINGLE VIEW CHEST CLINICAL HISTORY: Generalized weakness. FINDINGS: An AP, portable, upright chest radiograph is compared to study dated 04/01/2016. The examination is degraded by portable technique, large body habitus, and patient rotation. The heart is enlarged. The central pulmonary vessels are prominent. Bibasilar atelectasis is observed. No large pleural effusion or pneumothorax is seen. The skeletal structures are osteopenic. The bony thorax is grossly intact. IMPRESSION: 1. Cardiomegaly with prominence of the central pulmonary vasculature. Cortical clinically for evidence of mild congestive failure. 2. No airspace consolidation or large pleural effusion is identified.. Electronically signed by: Francisco Jiménez M.D. 04/30/2016 1:36 PM Dictated Date/Time: 04/30/2016 1:35 PM ULTRASOUND RIGHT LOWER EXTREMITY VENOUS CLINICAL HISTORY: Right leg swelling. History of venous thrombosis. COMPARISON STUDY: Right lower extremity venous ultrasound dated 04/04/2016. TECHNIQUE: Real-time, grayscale, and color Doppler sonography of the deep veins of the right lower extremity was performed from the inguinal crease to the calf. Compression and augmentation were utilized. FINDINGS: There is nearly occlusive deep venous thrombosis identified from the proximal superficial femoral vein to the calf. The common vein is patent and normally compressible. The greater saphenous vein and the profunda femoris vein at the junction with the common femoral vein are clear. IMPRESSION: There is nearly occlusive deep venous thrombosis seen extending from the proximal superficial femoral vein to the calf, similar in appearance to 04/04/2016 examination. Electronically signed by: Francisco Jiménez M.D. 04/30/2016 4:23 PM Dictated Date/Time: 04/30/2016 4:20 PM Laboratory Results 04/30/16 13:15 Red Blood Count 5.25, Mean Corpuscular Volume 84.6, Mean Corpuscular Hemoglobin 29.3, Mean Corpuscular Hemoglobin Concent 34.7, Mean Platelet Volume 10.8, Neutrophils (%) (Auto) 79.0, Lymphocytes (%) (Auto) 9.0, Monocytes (%) (Auto) 11.2, Eosinophils (%) (Auto) 0.0, Basophils (%) (Auto) 0.1, Neutrophils # (Auto ) 16.53, Lymphocytes # (Auto) 1.88, Monocytes # (Auto) 2.35, Eosinophils # (Auto ) 0.01, Basophils # (Auto) 0.02 04/30/16 13:15 Test 04/30/16 00:00 04/30/16 12:15 04/30/16 12:30 04/30/16 13:15 Urine Color GINO Urine Appearance CLOUDY (CLEAR) Urine pH 5.0 (4.5-7.5) Urine Specific [place] 1.034 (1.000-1.030) Urine Protein 1+ (NEG) Urine Glucose (UA) 3+ (NEG) Urine Ketones 1+ (NEG) Urine Occult Blood 1+ (NEG) Urine Nitrite POS (NEG) Urine Bilirubin NEG (NEG) Urine Urobilinogen NEG (NEG) Urine Leukocyte Esterase SMALL (NEG) Urine WBC (Auto) >30 /hpf (0-5) Urine RBC (Auto) 0-4 /hpf (0-4) Urine Hyaline Casts (Auto) 10-30 /lpf (0-5) Urine Epithelial Cells (Auto) >30 /lpf (0-5) Urine Bacteria (Auto) 4+ (NEG) Influenza Type A Antigen Neg for Influ A (NEG) Influenza Type B Antigen Neg for Influ B (NEG) Prothrombin Time 19.5 SECONDS (9.0-12.0) Prothromb Time International Ratio 1.8 (0.9-1.1) Activated Partial Thromboplast Time 37.7 SECONDS (21.0-31.0) Partial Thromboplastin Ratio 1.5 White Blood Count 20.93 K/uL (4.8-10.8) Red Blood Count 5.25 M/uL (4.7-6.1) Hemoglobin 15.4 g/dL (14.0-18.0) Hematocrit 44.4 % (42-52) Mean Corpuscular Volume 84.6 fL (80-100) Mean Corpuscular Hemoglobin 29.3 pg (25-34) Mean Corpuscular Hemoglobin Concent 34.7 g/dl (32-36) Platelet Count 206 K/uL (130-400) Mean Platelet Volume 10.8 fL (7.4-10.4) Neutrophils (%) (Auto) 79.0 % Lymphocytes (%) (Auto) 9.0 % Monocytes (%) (Auto) 11.2 % Eosinophils (%) (Auto) 0.0 % Basophils (%) (Auto) 0.1 % Neutrophils # (Auto) 16.53 K/uL (1.4-6.5) Lymphocytes # (Auto) 1.88 K/uL (1.2-3.4) Monocytes # (Auto) 2.35 K/uL (0.11-0.59) Eosinophils # (Auto) 0.01 K/uL (0-0.5) Basophils # (Auto) 0.02 K/uL (0-0.2) RDW Standard Deviation 46.0 fL (36.4-46.3) RDW Coefficient of Variation 14.9 % (11.5-14.5) Immature Granulocyte % (Auto) 0.7 % Immature Granulocyte # (Auto) 0.14 K/uL (0.00-0.02) Anion Gap 9.0 mmol/L (3-11) Est Creatinine Clear Calc Drug Dose 92.1 ml/min Estimated GFR () 63.3 Estimated GFR (Non- 54.6 BUN/Creatinine Ratio 14.9 (10-20) Calcium Level 8.9 mg/dl (8.5-10.1) Total Bilirubin 1.1 mg/dl (0.2-1) Aspartate Amino Transf (AST/SGOT) U/L (15-37) Alanine Aminotransferase (ALT/SGPT) 31 U/L (12-78) Alkaline Phosphatase 60 U/L (45-117) Total Protein 7.8 gm/dl (6.4-8.2) Albumin 3.4 gm/dl (3.4-5.0) Globulin 4.4 gm/dl (2.5-4.0) Albumin/Globulin Ratio 0.8 (0.9-2) Beta-Hydroxybutyric Acid 6.28 mg/dL (0.2-2.81) Test 04/30/16 14:41 04/30/16 16:40 Bedside Lactic Acid Venous 2.68 mmol/L (0.90-1.70) Laboratory results as stated above per my review. Medications Administered Medications (Trade) Dose Ordered Sig/Fam Route Start Time Stop Time Status Last Admin Dose Admin Sodium Chloride 2,000 ml @ 1,000 mls/hr Q2H ONCE IV 04/30/16 15:00 04/30/16 16:59 DC 04/30/16 15:00 1,000 MLS/HR Imipenem/ Cilastatin Sodium 500 mg/Dextrose 120 ml @ 100 mls/hr ONE ONCE IV 04/30/16 15:00 04/30/16 16:11 DC 04/30/16 16:30 100 MLS/HR Daptomycin/Sodium Chloride (Cubicin IV/Nss 50ml) 70 ml @ 120 mls/hr ONE ONCE IV 04/30/16 15:15 04/30/16 15:49 DC 04/30/16 15:27 120 MLS/HR ECG Indication: weakness Rate (beats per minute): 96 Rhythm: sinus rhythm Findings: 1st degree AV block, RBBB, left axis deviation ED Course 1205: Past medical records reviewed. The patient was evaluated in room C12b. A complete history and physical examination was performed. 1448: Explained the results with him. Recommended hospitalization. 1500: Imipenem / Cilastatin Sodium 500 mg / Dextrose 120 ml @ 100 mls/hr, NSS 2000 ml @ 1000 mls/hr. 1515: Daptomycin 1000 mg / NSS 70 ml @ 120 mls/hr. 1613: [facility] The patient will be evaluated. Medical Decision I considered multiple diagnoses including influenza and other viral illnesses, pneumonia, UTI, coagulopathy, DVT. Multiple labs, EKG and imaging were obtained. The patient's white count is markedly elevated as is his lactic acid. The patient's blood sugar is elevated. The patient was given large amounts of fluid and antibiotics were initiated after blood cultures were obtained. An ultrasound returned revealing a large clot in his right leg. The patient is on Coumadin but subtherapeutic. The source of his infection is most likely a urinary tract infection. I discussed care with the patient and with the hospitalist. Consults Time Called: 1609 Consulting Physician: Dr. Adams [facility]. Returned Call: [phone]: Discussed the case with Dr. Adams [facility]. The patient will be evaluated. Impression Primary Impression: Sepsis Additional Impressions: DVT (deep venous thrombosis) UTI (urinary tract infection) Diabetes mellitus out of control Critical Care I have personally spent greater than 35 minutes of critical care time in the direct management of this patient. This includes bedside care, interpretation of diagnostic studies, and testing, discussion with consultants, patient, and family members, and other required patient management activities. This 35 minutes is in excess of all separately billable procedures. Scribe Attestation The scribe's documentation has been prepared under my direction and personally reviewed by me in its entirety. I confirm that the note above accurately reflects all work, treatment, procedures, and medical decision making performed by me. Departure Information Dispostion Being Evaluated By Hospitalist Referrals Joe Nevarez M.D. (PCP) Patient Instructions [facility] Problem Qualifiers
[2016-04-30 13:23] LABS: INR 1.8 (0.9-1.1); PARTIAL THROMBOPLASTIN RATIO 1.5; PROTHROMBIN TIME (PATIENT) 19.5 SECONDS (9.0-12.0)
[2016-04-30 13:23] LABS: BASO % 0.1 %; BASO ABS # 0.02 K/uL (0-0.2); COMPLETE YES; HEMATOCRIT 44.4 % (42-52); IG% 0.7 %; LYMPH ABS # 1.88 K/uL (1.2-3.4); MEAN CELL VOLUME 84.6 fL (80-100); MEAN CORPUSCULAR HEMOGLOBIN 29.3 pg (25-34); MEAN CORPUSCULAR HGB CONC 34.7 g/dl (32-36); MEAN PLATELET VOLUME 10.8 fL (7.4-10.4); MONO % 11.2 %; PLATELET COUNT 206 K/uL (130-400); RED BLOOD COUNT 5.25 M/uL (4.7-6.1); WHITE BLOOD COUNT 20.93 K/uL (4.8-10.8)
--- NOTE | 2016-04-30 13:38 | DIAGNOSTIC IMAGING REPORT ---
SINGLE VIEW CHEST CLINICAL HISTORY: Generalized weakness. FINDINGS: An AP, portable, upright chest radiograph is compared to study dated 04/01/2016. The examination is degraded by portable technique, large body habitus, and patient rotation. The heart is enlarged. The central pulmonary vessels are prominent. Bibasilar atelectasis is observed. No large pleural effusion or pneumothorax is seen. The skeletal structures are osteopenic. The bony thorax is grossly intact. IMPRESSION: 1. Cardiomegaly with prominence of the central pulmonary vasculature. Cortical clinically for evidence of mild congestive failure. 2. No airspace consolidation or large pleural effusion is identified.. Electronically signed by: Francisco Jiménez M.D. 04/30/2016 1:36 PM Dictated Date/Time: 04/30/2016 1:35 PM
[2016-04-30 13:47] LABS: ALB/GLOB RATIO 0.8 (0.9-2); ALKALINE PHOSPHATASE 60 U/L (45-117); ALT/SGPT 31 U/L (12-78); BLOOD UREA NITROGEN 21 mg/dl (7-18); BUN/CREATININE RATIO 14.9 (10-20); CALCIUM 8.9 mg/dl (8.5-10.1); CARBON DIOXIDE 28 mmol/L (21-32); CHLORIDE 98 mmol/L (98-107); GLUCOSE 324 mg/dl (70-99); SODIUM 135 mmol/L (136-145)
[2016-04-30 13:57] LABS: BETA-HYDROXYBUTYRATE 6.28 mg/dL (0.2-2.81)
[2016-04-30 14:53] LABS: URINE APPEARANCE CLOUDY (CLEAR); URINE BILIRUBIN NEG (NEG); URINE EPITHELIAL CELL AUTO >30 /lpf (0-5); URINE NITRITE POS (NEG); URINE SPECIFIC GRAVITY 1.034 (1.000-1.030); UROBILINOGEN NEG (NEG); ZZUR CULT IF INDIC CLEAN CATCH YES
[2016-04-30 14:56] LABS: MANUAL MICROSCOPIC REQUIRED? NO; REVIEW REQ? NO; URINE COLOR AMBER
[2016-04-30] MEDS ORDERED: IMIPENEM-CILASTATIN 500 MG in DEXTROSE 5% 100ML 100 ML IV ONE (15:00)
[2016-04-30] MEDS ORDERED: SODIUM CHLORIDE 0.9% 1000ML 2,000 ML IV ONE (15:00)
[2016-04-30] MEDS ORDERED: DAPTOmycin IV 1,000 MG in SODIUM CHLORIDE 0.9% 50ML 50 ML IV ONE (15:15)
--- NOTE | 2016-04-30 16:24 | DIAGNOSTIC IMAGING REPORT ---
ULTRASOUND RIGHT LOWER EXTREMITY VENOUS CLINICAL HISTORY: Right leg swelling. History of venous thrombosis. COMPARISON STUDY: Right lower extremity venous ultrasound dated 04/04/2016. TECHNIQUE: Real-time, grayscale, and color Doppler sonography of the deep veins of the right lower extremity was performed from the inguinal crease to the calf. Compression and augmentation were utilized. FINDINGS: There is nearly occlusive deep venous thrombosis identified from the proximal superficial femoral vein to the calf. The common vein is patent and normally compressible. The greater saphenous vein and the profunda femoris vein at the junction with the common femoral vein are clear. IMPRESSION: There is nearly occlusive deep venous thrombosis seen extending from the proximal superficial femoral vein to the calf, similar in appearance to 04/04/2016 examination. Electronically signed by: Francisco Jiménez M.D. 04/30/2016 4:23 PM Dictated Date/Time: 04/30/2016 4:20 PM
[2016-04-30] MEDS ORDERED: ONDANSETRON INJ 2 MG/ML 2 ML VIAL IV PRN (16:45)
[2016-04-30] MEDS ORDERED: ALBUTEROL HFA 8 GM INHALER INH PRN (16:45)
--- NOTE | 2016-04-30 17:03 | History and Physical ---
History & Physical Date & Time of Service: Apr 30, 2016 at 16:51 Chief Complaint: Chills,Fever,Weakness Primary Care Physician: Joe Nevarez M.D. History of Present Illness Source: patient Pt is a 60 yo male who presents to the ER with complaints of persistent generalized weakness since yesterday. Pt reports associated fevers and chills and states having a hard time just getting out of bed. Pt states he was recently admitted for right leg pain not too long ago here at [facility] and was diagnosed with DVT in which he takes coumadin regularly. Pt reports uncontrolled diabetes at home with glucose averaging in 260s. Pt denies any N/V/D, chest pain, abdominal pain, urinary symptoms. Pt lives with brother at home and denies any sick contacts. Past Medical/Surgical History Medical Problems: (1) Diabetes mellitus Status: Chronic (2) History of CHF (congestive heart failure) Status: Chronic Family History Diabetes mellitus Social History Smoking Status: Never Smoker Smokeless Tobacco Use: No Alcohol Use: none Drug Use: none Marital Status: single Occupational Status: retired Immunizations History of Influenza Vaccine: Yes History of Tetanus Vaccine?: Yes Tetanus Immunization Date: Aug 28, 2007 History of Pneumococcal: Yes History of Hepatitis B Vaccine: No Multi-Drug Resistant Organisms History of MDRO: No Allergies Coded Allergies: Sulfa Antibiotics (Verified Allergy, Intermediate, HIVES, 04/01/16) Home Medications Scheduled Ergocalciferol (Vitamin D 33240 Unit), 50,000 UNIT PO WK Furosemide (Lasix), 40 MG PO DAILY Insulin Human Regular (Novolin R), 120 UNITS SC QAM Insulin Isophane (Human) (Novolin N Relion), 110 UNITS SQ HS Lisinopril (Zestril), 20 MG PO BID Metformin Hcl (Glucophage), 1,000 MG PO BID Mometasone Furoate (Nasal) (Mometasone Furoate), 2 SPRAYS AMBER DAILY Ranitidine (Zantac), 150 MG PO BID Warfarin Sodium (Coumadin), 2 TABS PO DAILY Scheduled PRN Albuterol Hfa (Ventolin Hfa), 2 PUFFS INH Q4H PRN for SOB/Wheezing Oxycodone/Acetaminophen 10MG/325MG (Percocet 10MG/325MG), 1 TAB PO Q6 PRN for Pain Review of Systems Constitutional: + chills, + fatigue, + fever, + weakness, No sweats Respiratory: No cough, No dyspnea at rest, No dyspnea on exertion, No shortness of breath, No sputum, No wheezing Cardiovascular: No PND, No chest pain, No orthopnea Abdomen: No diarrhea, No nausea, No pain, No vomiting Musculoskeletal: + calf pain, + muscle pain, No joint pain Genitourinary - Male: No dysuria, No hematuria, No urinary frequency Neurologic: No paralysis, No weakness Psychiatric: No anxiety, No depression symptoms Endocrine: No excessive thirst, No fatigue Integumentary: No itch, No rash Physical Exam Vital Signs Date Time Temp Pulse Resp B/P Pulse Ox O2 Delivery O2 Flow Rate FiO2 04/30/16 16:37 99 16 170/69 94 04/30/16 15:30 37.0 91 22 164/83 95 Room Air 04/30/16 14:42 99 18 135/76 95 Room Air 04/30/16 11:44 37.4 105 22 119/75 99 Room Air General Appearance: WD/WN, + mild distress, + obese Head: normocephalic, atraumatic Eyes: PERRL, EOMI Neck: supple, no adenopathy Respiratory/Chest: chest non-tender, lungs clear, normal breath sounds Cardiovascular: regular rate, rhythm, no edema, no gallop Abdomen/GI: non tender, soft, no organomegaly Extremities/Musculoskelatal: normal inspection, + calf tenderness (right calf tenderness) Neurologic/Psych: alert, normal mood/affect, oriented x 3 Skin: normal color, warm/dry Diagnostics Laboratory Results Results Past 24 Hours Test 04/30/16 00:00 04/30/16 12:15 04/30/16 12:30 04/30/16 13:15 Range/Units Urine Color GINO Urine Appearance CLOUDY CLEAR Urine pH 5.0 4.5-7.5 Urine Specific [place] 1.034 1.000-1.030 Urine Protein 1+ NEG Urine Glucose (UA) 3+ NEG Urine Ketones 1+ NEG Urine Occult Blood 1+ NEG Urine Nitrite POS NEG Urine Bilirubin NEG NEG Urine Urobilinogen NEG NEG Urine Leukocyte Esterase SMALL NEG Urine WBC (Auto) >30 0-5 /hpf Urine RBC (Auto) 0-4 0-4 /hpf Urine Hyaline Casts (Auto) 10-30 0-5 /lpf Urine Epithelial Cells (Auto) >30 0-5 /lpf Urine Bacteria (Auto) 4+ NEG Influenza Type A Antigen Neg for Influ A NEG Influenza Type B Antigen Neg for Influ B NEG Prothrombin Time 19.5 9.0-12.0 SECONDS Prothromb Time International Ratio 1.8 0.9-1.1 Activated Partial Thromboplast Time 37.7 21.0-31.0 SECONDS Partial Thromboplastin Ratio 1.5 White Blood Count 20.93 4.8-10.8 K/uL Red Blood Count 5.25 4.7-6.1 M/uL Hemoglobin 15.4 14.0-18.0 g/dL Hematocrit 44.4 42-52 % Mean Corpuscular Volume 84.6 80-100 fL Mean Corpuscular Hemoglobin 29.3 25-34 pg Mean Corpuscular Hemoglobin Concent 34.7 32-36 g/dl Platelet Count 206 130-400 K/uL Mean Platelet Volume 10.8 7.4-10.4 fL Neutrophils (%) (Auto) 79.0 % Lymphocytes (%) (Auto) 9.0 % Monocytes (%) (Auto) 11.2 % Eosinophils (%) (Auto) 0.0 % Basophils (%) (Auto) 0.1 % Neutrophils # (Auto) 16.53 1.4-6.5 K/uL Lymphocytes # (Auto) 1.88 1.2-3.4 K/uL Monocytes # (Auto) 2.35 0.11-0.59 K/uL Eosinophils # (Auto) 0.01 0-0.5 K/uL Basophils # (Auto) 0.02 0-0.2 K/uL RDW Standard Deviation 46.0 36.4-46.3 fL RDW Coefficient of Variation 14.9 11.5-14.5 % Immature Granulocyte % (Auto) 0.7 % Immature Granulocyte # (Auto) 0.14 0.00-0.02 K/uL Sodium Level 135 136-145 mmol/L Potassium Level 3.5-5.1 mmol/L Chloride Level 98 98-107 mmol/L Carbon Dioxide Level 28 21-32 mmol/L Anion Gap 9.0 3-11 mmol/L Blood Urea Nitrogen 21 7-18 mg/dl Creatinine 1.40 0.60-1.40 mg/dl Est Creatinine Clear Calc Drug Dose 92.1 ml/min Estimated GFR () 63.3 Estimated GFR (Non- 54.6 BUN/Creatinine Ratio 14.9 10-20 Random Glucose 324 70-99 mg/dl Calcium Level 8.9 8.5-10.1 mg/dl Total Bilirubin 1.1 0.2-1 mg/dl Aspartate Amino Transf (AST/SGOT) 15-37 U/L Alanine Aminotransferase (ALT/SGPT) 31 12-78 U/L Alkaline Phosphatase 60 45-117 U/L Total Protein 7.8 6.4-8.2 gm/dl Albumin 3.4 3.4-5.0 gm/dl Globulin 4.4 2.5-4.0 gm/dl Albumin/Globulin Ratio 0.8 0.9-2 Beta-Hydroxybutyric Acid 6.28 0.2-2.81 mg/dL Test 04/30/16 14:41 04/30/16 16:40 Range/Units Bedside Lactic Acid Venous 2.68 0.90-1.70 mmol/L Microbiology Results 04/30/16 Blood Culture, Solomon Batch Pending 04/30/16 Blood Culture, Solomon Batch Pending 04/30/16 Urine Culture, Received Pending Impression Assessment and Plan Pt is a 60 yo male with weakness, fevers, chills x 1 day Sepsis with unknown source. Pt denies any respiratory or urinary sx. WBC elev at 20 with elev lactate on presentation in ER. Start on levaquin 750 mg IV q daily at this time and IVF. Blood and urine cx pending. Repeat lactate pending IDDM Will place glycemic control consult, elev B hydroxybutyrate, no elev AG, will start on IVF and will cont insulin at this time. Likely could be contributing to weakness. Will check HgA1C as well HTN - Uncontrolled. Cont lisinopril and hydralazine PRN Recent LE DVT - Cont coumadin. INR slightly subtherapeutic. US LE pending Chronic pain - Cont percocet DVT ppx with coumadin Pt is FULL CODE VTE Prophylaxis VTE Risk Assessment Done? Y/N: Yes Risk Level: Moderate
[2016-04-30] MEDS ORDERED: HydrALAZINE HCL 20 MG/ML VIAL IV. PRN (17:15)
[2016-04-30 17:30] VITALS: BMI 56.0
[2016-04-30] MEDS ORDERED: PHARMACY GLYCEMIC MGMT CONSULT PRN (17:30)
[2016-04-30] MEDS ORDERED: ENOXAPARIN 1 MG/KG SQ SCH (17:45)
[2016-04-30] MEDS ORDERED: GLUCOSE 40% GEL 15 GM TUBE PO PRN (18:00)
[2016-04-30] MEDS ORDERED: GLUCAGON FOR INJ 1 MG VIAL SQ PRN (18:00)
[2016-04-30] MEDS ORDERED: GLUCOSE 10 TABS/TUBE PO PRN (18:00)
[2016-04-30] MEDS ORDERED: DEXTROSE 50% 50 ML SYR IV PRN (18:00)
[2016-04-30 18:02] VITALS: BP 179/71; PULSE 102; TEMP 38.1; O2SAT 94
[2016-04-30] MEDS: SODIUM CHLORIDE 0.9% 1000ML 1,000 ML IV SCH (18:39)
[2016-04-30] MEDS: LEVOFLOXACIN / D5W 750 MG in PREMIXED IN D5W 150 ML IV SCH (18:40)
[2016-04-30] MEDS: INSULIN ASPART 100 UNITS/ML 3 ML PEN SC SCH ×2 (18:47→21:43)
[2016-04-30] MEDS: WARFARIN SOD 7.5 MG TAB PO SCH (18:49)
[2016-04-30] MEDS: OXYCODONE/ACETAMINOPHEN 10/325MG TAB PO PRN (19:32)
[2016-04-30] MEDS ORDERED: HEPARIN IV BOLUS 9,000 UNIT in SYRINGE 0 ML IV ONE (19:45)
[2016-04-30] MEDS: HEPARIN 25,000 UNIT/500ML D5W 500 ML IV PRN (20:10)
--- NOTE | 2016-04-30 20:13 | Pharmacy Progress Note ---
Glycemic Control Intl Consult Date of Service Apr 30, 2016. Scope Glycemic Pharmacist consulted by Dr Adams on 04/30/16 for glycemic control and to write orders per [facility] inpatient glycemic control protocol Objective Weight (Kilograms): 177.000 Accuchecks BSG (last 24hrs): Test 04/30/16 13:15 Random Glucose 324 mg/dl (70-99) Laboratory Data (last 24hrs) Test 04/30/16 13:15 Anion Gap 9.0 mmol/L BUN/Creatinine Ratio 14.9 Blood Urea Nitrogen 21 mg/dl Creatinine 1.40 mg/dl Potassium Level mmol/L Sodium Level 135 mmol/L White Blood Count 20.93 K/uL Red Blood Count 5.25 M/uL Hemoglobin 15.4 g/dL Hematocrit 44.4 % Mean Corpuscular Volume 84.6 fL Mean Corpuscular Hemoglobin 29.3 pg Mean Corpuscular Hemoglobin Concent 34.7 g/dl Platelet Count 206 K/uL Mean Platelet Volume 10.8 fL Neutrophils (%) (Auto) 79.0 % Lymphocytes (%) (Auto) 9.0 % Monocytes (%) (Auto) 11.2 % Eosinophils (%) (Auto) 0.0 % Basophils (%) (Auto) 0.1 % Neutrophils # (Auto) 16.53 K/uL Lymphocytes # (Auto) 1.88 K/uL Monocytes # (Auto) 2.35 K/uL Eosinophils # (Auto) 0.01 K/uL Basophils # (Auto) 0.02 K/uL HbA1c Test 04/30/16 13:15 Recent Pertinent Medications Outpatient Anti-diabetic Regimen: * Novolin R 120 units with breakfast * NPH 110 units HS * Metformin 1000 mg PO BIDM * A1c = 10.7 % 04/15/16 (last admission) Risk Factors for Insulin Resistance: * Infection * IVF * Diet Assessment & Plan ASSESSMENT: * 60 yo M known to our glycemic service from prior admission (earlier this past month), here now with weakness/sepsis * A1c current, indicative of poor glycemic control as outpatient * During previous admission, all team members (CDE, MD, and pharmacy) tried to persuade patient to change outpatient regimen * Pt did not want to make changes but rather wanted to follow up with PCP- unsure if he was able to do so since last admission * Last admission he required around 200-250 units of insulin per day * He was very noncompliant with diet, consuming >200 g CHO at times in one meal * Initiate similar regimen to last admission but not as aggressive due to patient's renal function being elevated (could increase insulin sensitivity) * Reassess in the AM * Add overnight checks to avoid sustained hyperglycemia with initiation of insulin * ADA & AACE recommend a goal blood sugar range 140-180 mg/dl for the majority of critically ill & non-critically ill patients. However, more stringent targets may be selected in individual cases. Tighten goal range to 100-140 mg/ dL based on known insulin resistance. PLAN FOR INPATIENT GLYCEMIC CONTROL: * Hold outpatient oral diabetes medications * Initiate basal insulin with LANTUS 40 units SQ BID * Correctional Insulin with NOVOLOG per scale ACHS + 00,04 * Goal Range: Low 100 mg/dL - High 140 mg/dL * Correction Factor: 7 mg/dL/unit * Nutritional / Prandial insulin per carb ratio of 1 unit per 2 grams CHO consumed * A1c added to D/C instructions * Please note that the plan above was derived based on current level of insulin resistance and hospital stress. These recommendations are appropriate for inpatient admission only. Plan of care upon discharge will need to be reassessed to avoid potential outpatient hypo/hyperglycemia. Thank you.
[2016-04-30] MEDS: LISINOPRIL 20 MG TAB PO SCH (21:36)
[2016-04-30] MEDS: RANITIDINE HCL 150 MG TAB PO SCH (21:36)
[2016-04-30] MEDS: INSULIN GLARGINE SC SCH (21:42)
[2016-05-01] VITALS (7 sets, daily range): BP systolic 126–151; BP diastolic 68–80; PULSE 88–105; TEMP 36.8–39.1; O2SAT 90–97
[2016-05-01] MEDS: ACETAMINOPHEN 325 MG TAB PO PRN (00:16)
[2016-05-01] MEDS: INSULIN ASPART 100 UNITS/ML 3 ML PEN SC SCH ×7 (00:19→23:44)
[2016-05-01] MEDS: SODIUM CHLORIDE 0.9% 1000ML 1,000 ML IV SCH ×4 (01:15→23:46)
[2016-05-01 03:09] LABS: INFLUENZA A PCR Neg for Influ A (NEG); INFLUENZA B PCR Neg for Influ B (NEG)
[2016-05-01 03:28] LABS: PARTIAL THROMBOPLASTIN RATIO 2.5
[2016-05-01] MEDS ORDERED: NURSING DECISION MEDICATION ORDER SCH (05:15)
[2016-05-01] MEDS ORDERED: MICONAZOLE NITRATE POWDER 43 GM EXT PRN (05:30)
[2016-05-01] MEDS: FLUTICASONE PROPIONATE NA SPR 16 GM BTL NAE SCH (08:00)
[2016-05-01 08:05] LABS: HEMATOCRIT 41.8 % (42-52); MEAN CELL VOLUME 83.6 fL (80-100); MEAN CORPUSCULAR HEMOGLOBIN 28.4 pg (25-34); MEAN PLATELET VOLUME 11.9 fL (7.4-10.4); PLATELET COUNT 172 K/uL (130-400); WHITE BLOOD COUNT 25.85 K/uL (4.8-10.8)
[2016-05-01] MEDS: RANITIDINE HCL 150 MG TAB PO SCH ×2 (08:15→22:17)
[2016-05-01] MEDS: LISINOPRIL 20 MG TAB PO SCH ×2 (08:15→22:17)
[2016-05-01] MEDS: FUROSEMIDE 40 MG TAB PO SCH (08:15)
[2016-05-01] MEDS: OXYCODONE/ACETAMINOPHEN 10/325MG TAB PO PRN ×3 (08:16→23:39)
[2016-05-01] MEDS: INSULIN GLARGINE SC SCH ×2 (08:24→22:21)
[2016-05-01 08:27] LABS: INR 1.4 (0.9-1.1); PARTIAL THROMBOPLASTIN RATIO 2.5; PROTHROMBIN TIME (PATIENT) 15.7 SECONDS (9.0-12.0)
[2016-05-01 08:39] LABS: BLOOD UREA NITROGEN 25 mg/dl (7-18); BUN/CREATININE RATIO 15.9 (10-20); CALCIUM 8.4 mg/dl (8.5-10.1); CARBON DIOXIDE 24 mmol/L (21-32); CHLORIDE 98 mmol/L (98-107); GLUCOSE 180 mg/dl (70-99); SODIUM 134 mmol/L (136-145)
[2016-05-01] MEDS: HEPARIN 25,000 UNIT/500ML D5W 500 ML IV PRN ×3 (09:04→23:24)
[2016-05-01 09:37] LABS: BASO % 0.2 %; BASO ABS # 0.04 K/uL (0-0.2); COMPLETE YES; IG% 0.7 %; LYMPH % 9.4 %; LYMPH ABS # 2.43 K/uL (1.2-3.4); MONO % 11.5 %; NEUT % 78.2 %
--- NOTE | 2016-05-01 16:10 | Pharmacy Progress Note ---
Glycemic: Assessment & Plan Date of Service May 01, 2016. Assessment & Plan The patient received 152 units of insulin after admission on 04/30. BSGs ranging 179-351 mg/dl over the past 24hrs. Still on heparin drip (mixed in D5W) and Levaquin. BSG's trending down and Lantus may not yet be steady-state. No changes now-will reassess in am. * Basal insulin: Lantus 40 units every 12 hours * Correctional Insulin: Novolog Correction per scale ACHS Goal Range: Low 100 mg/dL - High 140 mg/dL Correction Factor: 7 mg/dL/unit * Prandial insulin: Per carb ratio of 1 unit per 2 grams CHO consumed BSGs continue to improve, no changes needed to inpatient regimen at this time. Pharmacy will continue to monitor patient daily and write orders per [facility] inpatient glycemic control protocol. Thanks. * Please note that the plan above was derived based on current level of insulin resistance and hospital stress. These recommendations are appropriate for inpatient admission only. Plan of care upon discharge will need to be reassessed to avoid potential outpatient hypo/hyperglycemia.
[2016-05-01] MEDS: WARFARIN SOD 7.5 MG TAB PO SCH (17:25)
[2016-05-01] MEDS: LEVOFLOXACIN / D5W 750 MG in PREMIXED IN D5W 150 ML IV SCH (19:06)
--- NOTE | 2016-05-01 23:07 | Progress Note ---
Subjective Date of Service: May 01, 2016. Subjective Pt evaluation today including: conversation w/ patient, physical exam, chart review, lab review, review of studies, review of inpatient medication list Voiding: no voiding problems, no incontinence Pt is seen and examined by me. Pt was c/o of fever, chills, and sweats last night, but denies rigor. Pt denies Cp, SOB, dizziness and LOC.Pt denies abd pain , and urinary symptoms. Pt denies nausea, vomiting,and diarrhea. Pt has good appetite and sleep. No acute event last night. Discussed with nurse. Problem List Medical Problems: (1) Diabetes mellitus out of control Status: Acute (2) DVT (deep venous thrombosis) Status: Acute (3) Hypoglycemia Status: Acute (4) Sepsis Status: Acute (5) UTI (urinary tract infection) Status: Acute (6) Weakness Status: Acute Review of Systems Constitutional: + chills, + fatigue, + fever, + weakness, +sweats Respiratory: No cough, No dyspnea at rest, No dyspnea on exertion, No shortness of breath, No sputum, No wheezing Cardiovascular: No PND, No chest pain, No orthopnea Abdomen: No diarrhea, No nausea, No pain, No vomiting Musculoskeletal: + calf pain, + muscle pain, No joint pain Genitourinary - Male: No dysuria, No hematuria, No urinary frequency Neurologic: No paralysis, No weakness Psychiatric: No anxiety, No depression symptoms Endocrine: No excessive thirst, No fatigue Integumentary: No itch, No rash Medications Medications (Trade) Dose Ordered Sig/Fam Route Start Time Stop Time Status Last Admin Dose Admin Furosemide (Lasix Tab) 40 mg DAILY PO 05/01/16 08:00 05/31/16 08:59 05/01/16 08:15 40 MG Insulin Aspart (novoLOG ASPART) SLIDING SCALE 0000,0400 SC 05/01/16 00:00 05/31/16 00:00 05/01/16 04:00 6 UNITS Objective Vital Signs Date Time Temp Pulse Resp B/P Pulse Ox O2 Delivery O2 Flow Rate FiO2 05/01/16 22:10 105 97 5.0 05/01/16 22:10 105 18 97 CPAP 5.0 05/01/16 16:08 36.8 88 19 129/80 96 Room Air 05/01/16 08:06 37.1 89 20 126/72 96 Room Air 05/01/16 08:00 Room Air 05/01/16 05:21 37.5 93 05/01/16 01:14 38.0 05/01/16 00:01 39.1 102 18 151/68 90 Room Air 05/01/16 00:00 92 Room Air Physical Exam Comments: General Appearance: WD/WN, + mild distress, + obese Head: normocephalic, atraumatic Eyes: PERRL, EOMI Neck: supple, no adenopathy Respiratory/Chest: chest non-tender, lungs clear, normal breath sounds Cardiovascular: regular rate, rhythm, no edema, no gallop Abdomen/GI: non tender, soft, no organomegaly Extremities/Musculoskelatal: normal inspection, + calf tenderness (right calf tenderness) Neurologic/Psych: alert, normal mood/affect, oriented x 3 Skin: normal color, warm/dry Laboratory Results Last 24 Hours Test 05/01/16 01:15 05/01/16 02:32 05/01/16 03:42 05/01/16 07:25 Influenza Type A (RT-PCR) Neg for Influ A Influenza Type B (RT-PCR) Neg for Influ B Activated Partial Thromboplast Time 64.8 SECONDS 65.0 SECONDS Partial Thromboplastin Ratio 2.5 2.5 Bedside Glucose 179 mg/dl Prothrombin Time 15.7 SECONDS Prothromb Time International Ratio 1.4 Sodium Level 134 mmol/L Potassium Level mmol/L Chloride Level 98 mmol/L Carbon Dioxide Level 24 mmol/L Anion Gap 12.0 mmol/L Blood Urea Nitrogen 25 mg/dl Creatinine 1.60 mg/dl Est Creatinine Clear Calc Drug Dose 80.6 ml/min Estimated GFR () 53.9 Estimated GFR (Non- 46.5 BUN/Creatinine Ratio 15.9 Random Glucose 180 mg/dl Calcium Level 8.4 mg/dl Troponin I 0.017 ng/ml Test 05/01/16 07:40 05/01/16 07:48 05/01/16 09:05 05/01/16 11:36 White Blood Count 25.85 K/uL Red Blood Count 5.00 M/uL Hemoglobin 14.2 g/dL Hematocrit 41.8 % Mean Corpuscular Volume 83.6 fL Mean Corpuscular Hemoglobin 28.4 pg Mean Corpuscular Hemoglobin Concent 34.0 g/dl Platelet Count 172 K/uL Mean Platelet Volume 11.9 fL Neutrophils (%) (Auto) 78.2 % Lymphocytes (%) (Auto) 9.4 % Monocytes (%) (Auto) 11.5 % Eosinophils (%) (Auto) 0.0 % Basophils (%) (Auto) 0.2 % Neutrophils # (Auto) 20.23 K/uL Lymphocytes # (Auto) 2.43 K/uL Monocytes # (Auto) 2.96 K/uL Eosinophils # (Auto) 0.01 K/uL Basophils # (Auto) 0.04 K/uL RDW Standard Deviation 45.6 fL RDW Coefficient of Variation 14.9 % Immature Granulocyte % (Auto) 0.7 % Immature Granulocyte # (Auto) 0.18 K/uL Bedside Glucose 187 mg/dl 273 mg/dl Potassium Level 4.0 mmol/L Chemistry Specimen Hemolysis Test 05/01/16 14:48 05/01/16 16:48 05/01/16 19:57 Troponin I < 0.015 ng/ml Bedside Glucose 244 mg/dl 251 mg/dl Assessment and Plan Pt is a 60 yo male with weakness, fevers, chills x 2 day Sepsis -- Possible secondary to UTI, UCx is positive Gram neg E-coli. -- Pt denies any respiratory or urinary sx. -- WBC elev at 25, repeat WBC -- lactic acid 2.73 to 2.3 -- Continue Levaquin 750 mg IV q daily at this time and IVF. Blood cx pending., -- May consider to cover with vanco if WBC counts not trending down. IDDM -- tight glycemic control required -- on Lantus/ NovoLog sliding scale HTN -- controlled. Cont lisinopril and hydralazine PRN Recent LE DVT -- Cont Coumadin, INR subtherapeutic 1.4 -- heparin IV Chronic pain - Cont Percocet Pt is FULL CODE Continued [facility] stay due to: multiple IV medications needed Discharge planning: home
[2016-05-02 00:58] VITALS: BP 148/83; PULSE 89; TEMP 36.9; O2SAT 99
[2016-05-02] MEDS: INSULIN ASPART 100 UNITS/ML 3 ML PEN SC SCH ×5 (04:48→22:00)
[2016-05-02 06:24] LABS: ESTIMATED AVERAGE GLUCOSE 246 mg/dl; HA1C FLAG Normal (Normal)
[2016-05-02 06:40] LABS: INR 1.6 (0.9-1.1); PARTIAL THROMBOPLASTIN RATIO 2.4
[2016-05-02 06:50] LABS: HEMATOCRIT 40.5 % (42-52); MEAN CELL VOLUME 84.7 fL (80-100); MEAN CORPUSCULAR HEMOGLOBIN 28.5 pg (25-34); MEAN CORPUSCULAR HGB CONC 33.6 g/dl (32-36); MEAN PLATELET VOLUME 11.1 fL (7.4-10.4); PLATELET COUNT 160 K/uL (130-400); RED BLOOD COUNT 4.78 M/uL (4.7-6.1); WHITE BLOOD COUNT 13.91 K/uL (4.8-10.8)
[2016-05-02 06:55] LABS: ALB/GLOB RATIO 0.6 (0.9-2); BUN/CREATININE RATIO 20.1 (10-20); CALCIUM 8.4 mg/dl (8.5-10.1); CREATININE 0.84 mg/dl (0.60-1.40); POTASSIUM 3.8 mmol/L (3.5-5.1)
[2016-05-02 07:53] VITALS: BP 147/50; PULSE 88; TEMP 37.4; O2SAT 100
[2016-05-02] MEDS: FLUTICASONE PROPIONATE NA SPR 16 GM BTL NAE SCH (08:00)
[2016-05-02] MEDS: OXYCODONE/ACETAMINOPHEN 10/325MG TAB PO PRN ×3 (08:05→21:11)
[2016-05-02] MEDS: SODIUM CHLORIDE 0.9% 1000ML 1,000 ML IV SCH ×2 (08:05→16:28)
[2016-05-02] MEDS: RANITIDINE HCL 150 MG TAB PO SCH ×2 (08:06→21:11)
[2016-05-02] MEDS: FUROSEMIDE 40 MG TAB PO SCH (08:06)
[2016-05-02] MEDS: LISINOPRIL 20 MG TAB PO SCH ×2 (08:06→21:12)
[2016-05-02] MEDS: INSULIN GLARGINE SC SCH ×2 (08:34→21:15)
[2016-05-02 09:28] LABS: BASO % 0.1 %; BASO ABS # 0.01 K/uL (0-0.2); COMPLETE YES; EOS % 1.7 %; IG% 0.4 %; LYMPH % 7.4 %; LYMPH ABS # 1.03 K/uL (1.2-3.4); NEUT % 82.4 %
--- NOTE | 2016-05-02 11:00 | Pharmacy Progress Note ---
Glycemic Control: Progress Nt Date of Service May 02, 2016. Scope Glycemic Pharmacist consulted by Dr Adams on 04/30/16 for glycemic control and to write orders per [facility] inpatient glycemic control protocol. Objective Accuchecks BSG (last 24hrs): Test 05/01/16 11:36 05/01/16 16:48 05/01/16 19:57 05/01/16 23:41 Bedside Glucose 273 mg/dl (70-99) 244 mg/dl (70-99) 251 mg/dl (70-99) 246 mg/dl (70-99) Test 05/02/16 04:26 05/02/16 06:10 05/02/16 08:15 Bedside Glucose 177 mg/dl (70-99) 214 mg/dl (70-99) Random Glucose 201 mg/dl (70-99) HbA1c: Test 04/30/16 13:15 Hemoglobin A1c 10.2 % (4.5-5.6) H Recent Pertinent Medications Outpatient Anti-diabetic Regimen: * Novolin R 120 units with breakfast * NPH 110 units HS * Metformin 1000 mg PO BIDM The patient is currently receiving: * Basal insulin: Lantus 40 units every 12 hours * Correctional Insulin: Novolog Correction per scale ACHS Goal Range: Low 100 mg/dL - High 140 mg/dL Correction Factor: 7 mg/dL/unit * Prandial insulin: Per carb ratio of 1 unit per 2 grams CHO consumed * Oral Agents: On hold for admission Risk Factors for Insulin Resistance: * Infection * IVF: (heparin gtt mixed in dextrose, IV abx) * Diet * Baseline poor glycemic control Assessment & Plan ASSESSMENT: * 60yo T2DM known to pharmacy from previous admissions/glycemic consults. * Pt typically requires 200+ units of insulin per day per previous admissions with similar risk factors for insulin resistance. * Pt has received 219units of insulin over the past 24hrs with sub-adequate glycemic control * Pt receiving 20+ units of correctional insulin overnight (0000 & 0400 accuchecks) --> will add this into basal insulin dosing * Bolus insulin parameters are consistent with previous admission dosing. If BSGs do not improve with increased Lantus dosing will tighten CF/CR accordingly. Current parameters are already aggressive and consistent with an estimated total daily dose of ~200-215units/day * ADA & AACE recommend a goal blood sugar range 140-180 mg/dl for the majority of critically ill & non-critically ill patients. However, more stringent targets may be selected in individual cases. Will utilize more stringent goal range of 100-140mg/dl based on age. PLAN FOR INPATIENT GLYCEMIC CONTROL: * Continue to hold outpatient oral diabetes medications * Increase Basal insulin with Lantus to 50 units SQ BID * Continue NOVOLOG per scale ACHS or Q6hrs while NPO. D/C overnight checks at 0000 & 0400 since basal insulin increased. * Goal Range: Low 100 mg/dL - High 140 mg/dL * Correction Factor: 7 mg/dL/unit * Nutritional / Prandial insulin per carb ratio of 1 unit per 2 grams CHO consumed * Please note that the plan above was derived based on current level of insulin resistance and hospital stress. These recommendations are appropriate for inpatient admission only. Plan of care upon discharge will need to be reassessed to avoid potential outpatient hypo/hyperglycemia. Thank you.
[2016-05-02] MEDS: HEPARIN 25,000 UNIT/500ML D5W 500 ML IV PRN ×2 (11:44→23:45)
[2016-05-02 12:11] VITALS: Ht 177.8 cm; Wt 177.0 kg
--- NOTE | 2016-05-02 14:21 | Progress Note ---
Subjective Date of Service: May 02, 2016. Subjective Pt evaluation today including: conversation w/ patient, physical exam, chart review, lab review, review of studies, review of inpatient medication list Pt resting comfortably in bed No sob noted States legs are feeling weak still, but denies any worsening pain Problem List Medical Problems: (1) Diabetes mellitus out of control Status: Acute (2) DVT (deep venous thrombosis) Status: Acute (3) Hypoglycemia Status: Acute (4) Sepsis Status: Acute (5) UTI (urinary tract infection) Status: Acute (6) Weakness Status: Acute Review of Systems Constitutional: + fatigue, + weakness, No chills, No fever Respiratory: No cough, No shortness of breath, No sputum, No wheezing Cardiac: No chest pain, No orthopnea Abdomen: No diarrhea, No nausea, No pain, No vomiting Musculoskeletal: + muscle pain, No joint pain Male : No dysuria, No urinary frequency Objective Vital Signs Date Time Temp Pulse Resp B/P Pulse Ox O2 Delivery O2 Flow Rate FiO2 05/02/16 08:00 Room Air 05/02/16 07:53 37.4 88 16 147/50 100 BiPAP 05/02/16 00:58 36.9 89 18 148/83 99 BiPAP 05/01/16 23:35 Room Air 05/01/16 22:10 105 97 5.0 05/01/16 22:10 105 18 97 CPAP 5.0 05/01/16 16:08 36.8 88 19 129/80 96 Room Air 05/01/16 16:00 Room Air Physical Exam General Appearance: WD/WN, no apparent distress Neck: supple, no adenopathy Respiratory/Chest: lungs clear, normal breath sounds Cardiovascular: no edema, no gallop Abdomen: non tender, soft Neurologic/Psychiatric: alert, normal mood/affect Laboratory Results Last 24 Hours Test 05/01/16 14:48 05/01/16 16:48 05/01/16 19:57 05/01/16 23:41 Troponin I < 0.015 ng/ml Bedside Glucose 244 mg/dl 251 mg/dl 246 mg/dl Test 05/02/16 04:26 05/02/16 06:10 05/02/16 08:15 05/02/16 11:55 Bedside Glucose 177 mg/dl 214 mg/dl 248 mg/dl White Blood Count 13.91 K/uL Red Blood Count 4.78 M/uL Hemoglobin 13.6 g/dL Hematocrit 40.5 % Mean Corpuscular Volume 84.7 fL Mean Corpuscular Hemoglobin 28.5 pg Mean Corpuscular Hemoglobin Concent 33.6 g/dl Platelet Count 160 K/uL Mean Platelet Volume 11.1 fL Neutrophils (%) (Auto) 82.4 % Lymphocytes (%) (Auto) 7.4 % Monocytes (%) (Auto) 8.0 % Eosinophils (%) (Auto) 1.7 % Basophils (%) (Auto) 0.1 % Neutrophils # (Auto) 11.47 K/uL Lymphocytes # (Auto) 1.03 K/uL Monocytes # (Auto) 1.11 K/uL Eosinophils # (Auto) 0.23 K/uL Basophils # (Auto) 0.01 K/uL RDW Standard Deviation 45.7 fL RDW Coefficient of Variation 14.6 % Immature Granulocyte % (Auto) 0.4 % Immature Granulocyte # (Auto) 0.06 K/uL Prothrombin Time 18.0 SECONDS Prothromb Time International Ratio 1.6 Activated Partial Thromboplast Time 62.7 SECONDS Partial Thromboplastin Ratio 2.4 Sodium Level 136 mmol/L Potassium Level 3.8 mmol/L Chloride Level 101 mmol/L Carbon Dioxide Level 27 mmol/L Anion Gap 8.0 mmol/L Blood Urea Nitrogen 17 mg/dl Creatinine 0.84 mg/dl Est Creatinine Clear Calc Drug Dose 153.5 ml/min Estimated GFR () 111.1 Estimated GFR (Non- 95.8 BUN/Creatinine Ratio 20.1 Random Glucose 201 mg/dl Lactic Acid Level 0.8 mmol/L Calcium Level 8.4 mg/dl Total Bilirubin 0.5 mg/dl Aspartate Amino Transf (AST/SGOT) 26 U/L Alanine Aminotransferase (ALT/SGPT) 24 U/L Alkaline Phosphatase 67 U/L Total Protein 7.0 gm/dl Albumin 2.5 gm/dl Globulin 4.5 gm/dl Albumin/Globulin Ratio 0.6 Assessment and Plan Pt is a 60 yo male with weakness, fevers, chills x 1 day Sepsis from urinary source as urine cult + for e coli. Pt denies any respiratory or urinary sx. WBC elev at 20-->25-->13 with elev lactate on presentation in ER. Cont on levaquin 750 mg IV q daily day#3. Blood NGTD IDDM glycemic control consult, elev B hydroxybutyrate, no elev AG, will start on IVF and will cont insulin at this time. Likely could be contributing to weakness. HgA1c uncontrolled 10.2 HTN - Uncontrolled. Cont lisinopril and hydralazine PRN Recent LE DVT - Cont coumadin and heparin. INR subtherapeutic. US LE There is nearly occlusive deep venous thrombosis seen extending from the proximal superficial femoral vein to the calf, similar in appearance to 04/04/2016 examination. Chronic pain - Cont percocet DVT ppx with coumadin and heparin Pt is FULL CODE Continued [facility] stay due to: multiple IV medications needed Discharge planning: home
[2016-05-02 16:14] VITALS: BP 126/74; PULSE 100; TEMP 37.9; O2SAT 97
[2016-05-02] MEDS: WARFARIN SOD 7.5 MG TAB PO SCH (16:27)
[2016-05-02 22:48] VITALS: PULSE 111; O2SAT 95
[2016-05-03] VITALS (9 sets, daily range): BP systolic 113–167; BP diastolic 56–81; PULSE 81–106; TEMP 36.3–38; O2SAT 92–99
[2016-05-03] MEDS: HEPARIN 25,000 UNIT/500ML D5W 500 ML IV PRN ×2 (00:38→12:40)
[2016-05-03] MEDS: SODIUM CHLORIDE 0.9% 1000ML 1,000 ML IV SCH ×3 (00:41→19:05)
[2016-05-03 06:12] LABS: BASO % 0.2 %; BASO ABS # 0.01 K/uL (0-0.2); COMPLETE YES; EOS % 0.3 %; HEMATOCRIT 42.4 % (42-52); IG% 2.9 %; LYMPH ABS # 0.79 K/uL (1.2-3.4); MEAN CORPUSCULAR HEMOGLOBIN 28.7 pg (25-34); MEAN CORPUSCULAR HGB CONC 33.7 g/dl (32-36); MEAN PLATELET VOLUME 10.9 fL (7.4-10.4); MONO % 11.4 %; NEUT % 73.2 %; PLATELET COUNT 185 K/uL (130-400); RED BLOOD COUNT 4.99 M/uL (4.7-6.1)
[2016-05-03 06:47] LABS: INR 1.5 (0.9-1.1); PARTIAL THROMBOPLASTIN RATIO 2.2; PROTHROMBIN TIME (PATIENT) 16.3 SECONDS (9.0-12.0)
[2016-05-03 06:56] LABS: BUN/CREATININE RATIO 11.6 (10-20); CALCIUM 8.6 mg/dl (8.5-10.1); CREATININE 0.86 mg/dl (0.60-1.40); POTASSIUM 3.7 mmol/L (3.5-5.1)
[2016-05-03] MEDS: FLUTICASONE PROPIONATE NA SPR 16 GM BTL NAE SCH (08:00)
[2016-05-03] MEDS: OXYCODONE/ACETAMINOPHEN 10/325MG TAB PO PRN ×2 (08:26→14:30)
[2016-05-03] MEDS: LISINOPRIL 20 MG TAB PO SCH ×2 (08:27→19:10)
[2016-05-03] MEDS: RANITIDINE HCL 150 MG TAB PO SCH ×2 (08:27→19:09)
[2016-05-03] MEDS: FUROSEMIDE 40 MG TAB PO SCH (08:27)
[2016-05-03] MEDS: INSULIN ASPART 100 UNITS/ML 3 ML PEN SC SCH ×4 (08:56→21:31)
[2016-05-03] MEDS: INSULIN GLARGINE SC SCH (08:57)
--- NOTE | 2016-05-03 10:12 | Pharmacy Progress Note ---
Glycemic Control: Progress Nt Date of Service May 03, 2016. Scope Glycemic Pharmacist consulted by Dr Adams on 04/30/16 for glycemic control and to write orders per [facility] inpatient glycemic control protocol. Objective Accuchecks BSG (last 24hrs): Test 05/02/16 11:55 05/02/16 16:31 05/02/16 20:20 05/03/16 05:40 Bedside Glucose 248 mg/dl (70-99) 230 mg/dl (70-99) 133 mg/dl (70-99) Random Glucose 115 mg/dl (70-99) Test 05/03/16 07:45 Bedside Glucose 121 mg/dl (70-99) HbA1c: Test 04/30/16 13:15 Hemoglobin A1c 10.2 % (4.5-5.6) H Recent Pertinent Medications Outpatient Anti-diabetic Regimen: * Novolin R 120 units with breakfast * NPH 110 units HS * Metformin 1000 mg PO BIDM The patient is currently receiving: * Basal insulin: Lantus 50 units every 12 hours * Correctional Insulin: Novolog Correction per scale ACHS Goal Range: Low 100 mg/dL - High 140 mg/dL Correction Factor: 5 mg/dL/unit * Prandial insulin: Per carb ratio of 1 unit per 2 grams CHO consumed * Oral Agents: On hold for admission Risk Factors for Insulin Resistance: * IVF: (heparin gtt mixed in dextrose, IV abx) * Diet * Baseline poor glycemic control Assessment & Plan ASSESSMENT: * 60yo T2DM known to pharmacy from previous admissions/glycemic consults. Pt typically requires 200+ units of insulin per day per previous admissions with similar risk factors for insulin resistance. * Pt has received 201units of insulin over the past 24hrs with improving glycemic control * 100 units of basal insulin * 101 units of prandial/correctional insulin * BSGs ranging 121-230mg/dl over the past 24hrs * Risk factors for insulin resistance are improving over the past 24hrs * Infection adequately treated/Pt status improving/ abx d/c * Dextrose containing IVF continues (heparin drip mixed in dextrose), INR close to therapeutic range. Anticipate drop in insulin needs when heparin drip d /c * Lantus is at steady state * Anticipating insulin regimen will need maintained, but re-distributed * AM Fasting BSG = 121mg/dl. AM fasting BSG trending downwards (214 --> 121) d/ t Lantus steady state. Will change Lantus to dosing based on BSG to help prevent hypoglycemia. * Total daily dose = 200 units/day. Distribute insulin regimen as 50%:50% basal :prandial to prevent hypo/hyperglycemia --> change CF/Cr based on est total daily dose of ~200 units/day * ADA & AACE recommend a goal blood sugar range 140-180 mg/dl for the majority of critically ill & non-critically ill patients. However, more stringent targets may be selected in individual cases. Will utilize more stringent goal range of 100-140mg/dl based on age. PLAN FOR INPATIENT GLYCEMIC CONTROL: * Continue to hold outpatient oral diabetes medications * Basal insulin with Lantus SQ BID - dosing based on BSG * If BSG 180mg/dl or below --> Give Lantus 45 units * If BSG 181mg/dl or above --> Give Lantus 50 units * Loosen NOVOLOG per scale ACHS or Q6hrs while NPO * Goal Range: Low 110 mg/dL - High 140 mg/dL * Correction Factor: 10 mg/dL/unit * Nutritional / Prandial insulin per carb ratio of 1 unit per 3 grams CHO consumed * Please note that the plan above was derived based on current level of insulin resistance and hospital stress. These recommendations are appropriate for inpatient admission only. Plan of care upon discharge will need to be reassessed to avoid potential outpatient hypo/hyperglycemia. Thank you.
--- NOTE | 2016-05-03 11:41 | Hospitalist Progress Note ---
Hospitalist Progress Note Date of Service May 03, 2016. (Jeri Gonsalves ., TIAN-C) Subjective Pt evaluation today including: conversation w/ patient, physical exam, chart review, lab review, review of inpatient medication list Pain: 7/10 aching pain in lower legs bilaterally PO Intake: Tolerating PO diet Voiding: no voiding problems Patient reports feeling better. He still complains of weakness and fatigue but states that this is improving. The patient did complain of fever, chills, and sweats earlier this morning and was found to have a temperature of 38C. Patient currently afebrile during my examination. The patient also complains of a 7/10 aching pain in his lower legs bilaterally from the calves down. He states that this pain is sometimes sharp. Patient tolerating PO diet well today without nausea or vomiting. The patient denies chest pain, palpitations, claudication, cough, wheezing, shortness of breath, nausea, vomiting, abdominal pain, dysuria, hematuria, urinary retention, paralysis, numbness and tingling. Additional Comments: See HPI for pertinent positives and negatives. All other systems reviewed and negative. (Jeri Gonsalves ., PA-C) Objective Vital Signs Date Time Temp Pulse Resp B/P Pulse Ox O2 Delivery O2 Flow Rate FiO2 05/03/16 08:36 36.9 05/03/16 08:00 92 Room Air 05/03/16 08:00 38.0 105 20 113/56 92 CPAP 05/03/16 00:40 CPAP 3.0 05/03/16 00:00 37.1 81 20 120/80 99 CPAP 05/02/16 22:48 111 95 5.0 05/02/16 16:14 37.9 100 18 126/74 97 CPAP 05/02/16 16:00 Room Air (Jeri Gonsalves ., PA-C) Physical Exam General Appearance: WD/WN, no apparent distress, + obese (morbidly obese) Eyes: normal inspection, PERRL, EOMI ENT: normal ENT inspection, hearing grossly normal, pharynx normal Neck: supple, no JVD, trachea midline Respiratory/Chest: lungs clear, normal breath sounds, no respiratory distress Cardiovascular: no gallop, no murmur, + tachycardia (regulary rhythm) Abdomen: normal bowel sounds, non tender, soft Extremities: normal inspection, no calf tenderness, + pedal edema (2-3+ pitting pedal edema R>L), + swelling (2-3+ pitting edema lower extremities R>L) , + pertinent finding (pt states leg pain not exacerbated by palpation) Neurologic/Psychiatric: alert, normal mood/affect, oriented x 3 Skin: normal color, warm/dry, no rash (Jeri Gonsalves ., CHLOE) Laboratory Results Last 24 Hours Test 05/02/16 11:55 05/02/16 16:31 05/02/16 20:20 05/03/16 05:40 Bedside Glucose 248 mg/dl 230 mg/dl 133 mg/dl White Blood Count 6.60 K/uL Red Blood Count 4.99 M/uL Hemoglobin 14.3 g/dL Hematocrit 42.4 % Mean Corpuscular Volume 85.0 fL Mean Corpuscular Hemoglobin 28.7 pg Mean Corpuscular Hemoglobin Concent 33.7 g/dl Platelet Count 185 K/uL Mean Platelet Volume 10.9 fL Neutrophils (%) (Auto) 73.2 % Lymphocytes (%) (Auto) 12.0 % Monocytes (%) (Auto) 11.4 % Eosinophils (%) (Auto) 0.3 % Basophils (%) (Auto) 0.2 % Neutrophils # (Auto) 4.84 K/uL Lymphocytes # (Auto) 0.79 K/uL Monocytes # (Auto) 0.75 K/uL Eosinophils # (Auto) 0.02 K/uL Basophils # (Auto) 0.01 K/uL RDW Standard Deviation 45.4 fL RDW Coefficient of Variation 14.7 % Immature Granulocyte % (Auto) 2.9 % Immature Granulocyte # (Auto) 0.19 K/uL Prothrombin Time 16.3 SECONDS Prothromb Time International Ratio 1.5 Activated Partial Thromboplast Time 58.3 SECONDS Partial Thromboplastin Ratio 2.2 Sodium Level 134 mmol/L Potassium Level 3.7 mmol/L Chloride Level 98 mmol/L Carbon Dioxide Level 29 mmol/L Anion Gap 7.0 mmol/L Blood Urea Nitrogen 10 mg/dl Creatinine 0.86 mg/dl Est Creatinine Clear Calc Drug Dose 149.9 ml/min Estimated GFR () 110.0 Estimated GFR (Non- 94.9 BUN/Creatinine Ratio 11.6 Random Glucose 115 mg/dl Calcium Level 8.6 mg/dl Test 05/03/16 07:45 Bedside Glucose 121 mg/dl (Jeri Gonsalves ., PA-C) Assessment and Plan 60 y/o male with a history of DM II, HTN, lower extremity edema and recent RLE DVT presents to the ED on 04/30 with weakness, fevers, chills x 1 day [employer]. 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 UA positive for UTI. Sepsis secondary to UTI--improving -Admit to med/surg -Urine culture positive for fitzgerald-sensitive E. coli. -Levaquin switched to Cipro 400 mg IV q12h on 05/03. Day #4 of abx. -NSS at 125 cc/hr -Leukocytosis resolved, WBC 6.6 on 05/03 (WBC 20.93-->25.85-->13.91-->6.6) -Pt febrile morning of 05/03 with temp 38C. Afebrile during my exam -Blood cultures NGTD x 2 -Lactic acidosis resolved: 2.68-->2.3-->0.8 Acute RLE DVT -Doppler U/S 04/30: Nearly occlusive DVT from proximal superficial femoral vein to calf, similar to previous 04/04/16 study. -INR subtherapeutic. INR 1.5 on 05/03. Increase warfarin to 20 mg PO qd. Continue to monitor -Continue heparin drip Uncontrolled DM II -HgbA1c 10.2 on 04/30 -Pharmacy glycemic control consult, following HTN--stable -Continue lisinopril 20 mg PO BID -Cover with hydralazine 10 mg IV q6h prn SBP >180 Chronic pain -Continue Percocet 10/325 mg PO q6h prn pain DVT prophylaxis -Heparin drip, warfarin Code Status -Level I, FULL RESUSCITATION STATUS (Jeri Gonsalves ., CINDYC) Attending Attestation: Pt seen/examined, chart reviewed, care plan d/w TIAN Gonsalves. I agree with the corona components of her documentation. Appetite was poor yesterday; slightly better today Overall feeling modestly improved. Still weak. Denies h/o UTI or renal stones. Was on 15mg coumadin daily at home. Vitals - febrile, low grade temps gen - looks sick but not toxic neck - no JVD heart - tachy, s1, s2 lungs - cta b/l abd - soft, no flank tenderness ext - right leg w/ edema, left leg none A/P: 1. sepsis 2nd to e. coli UTI - cont cipro 2. acute kidney injury 2nd to #1 - resolved 3. recent extensive RLE DVT - INR subtherapeutic - increase coumadin to 20mg daily; daily INR 4. c/o bilateral leg pain - check CPK in am, check mag in am 5. needs AURELIO to r/o prostatitis PT, OT Hay ADRIAN MD (Zak Adrian MD)
[2016-05-03] MEDS: CIPROFLOXACIN / D5W 400 MG in PREMIXED IN D5W 200 ML IV SCH ×2 (12:36→22:55)
[2016-05-03] MEDS ORDERED: NURSING VERBAL MED ORDER ONE (14:15)
[2016-05-03] MEDS: ACETAMINOPHEN 325 MG TAB PO PRN (16:05)
[2016-05-03] MEDS: WARFARIN SOD 10 MG TAB PO SCH (16:06)
[2016-05-03] MEDS ORDERED: INSULIN GLARGINE SC SCH (21:00)
[2016-05-04] VITALS (10 sets, daily range): BP systolic 133–178; BP diastolic 73–96; PULSE 74–92; TEMP 36.5–37.1; O2SAT 92–100
[2016-05-04] MEDS: OXYCODONE/ACETAMINOPHEN 10/325MG TAB PO PRN ×4 (01:14→20:38)
[2016-05-04] MEDS: HEPARIN 25,000 UNIT/500ML D5W 500 ML IV PRN ×2 (01:14→13:37)
[2016-05-04] MEDS: SODIUM CHLORIDE 0.9% 1000ML 1,000 ML IV SCH ×2 (05:11→07:23)
[2016-05-04] MEDS: FUROSEMIDE 40 MG TAB PO SCH (07:22)
[2016-05-04] MEDS: LISINOPRIL 20 MG TAB PO SCH ×2 (07:22→20:30)
[2016-05-04] MEDS: FLUTICASONE PROPIONATE NA SPR 16 GM BTL NAE SCH (07:22)
[2016-05-04] MEDS: RANITIDINE HCL 150 MG TAB PO SCH ×2 (07:22→20:30)
[2016-05-04] MEDS: COLLAGENASE OINT 30 GM TUBE EXT SCH (07:22)
[2016-05-04] MEDS ORDERED: COLLAGENASE OINT 30 GM TUBE EXT SCH (08:00)
[2016-05-04 08:06] LABS: INR 1.6 (0.9-1.1); PARTIAL THROMBOPLASTIN RATIO 2.2; PROTHROMBIN TIME (PATIENT) 17.2 SECONDS (9.0-12.0)
[2016-05-04 08:08] LABS: BUN/CREATININE RATIO 10.6 (10-20); CALCIUM 8.7 mg/dl (8.5-10.1); CREATININE 0.93 mg/dl (0.60-1.40); MAGNESIUM 2.4 mg/dl (1.8-2.4); POTASSIUM 4.4 mmol/L (3.5-5.1)
[2016-05-04 08:43] LABS: HEMATOCRIT 43.6 % (42-52); MEAN CORPUSCULAR HEMOGLOBIN 28.7 pg (25-34); MEAN CORPUSCULAR HGB CONC 33.7 g/dl (32-36); PLATELET COUNT 207 K/uL (130-400); RED BLOOD COUNT 5.13 M/uL (4.7-6.1); WHITE BLOOD COUNT 5.49 K/uL (4.8-10.8)
[2016-05-04] MEDS: INSULIN GLARGINE SC SCH ×2 (09:13→20:37)
[2016-05-04] MEDS: INSULIN ASPART 100 UNITS/ML 3 ML PEN SC SCH ×4 (09:13→20:37)
[2016-05-04] MEDS: CIPROFLOXACIN / D5W 400 MG in PREMIXED IN D5W 200 ML IV SCH ×2 (11:03→22:28)
--- NOTE | 2016-05-04 11:29 | Pharmacy Progress Note ---
Glycemic Control: Progress Nt Date of Service May 04, 2016. Scope Glycemic Pharmacist consulted for glycemic control and to write orders per [facility] inpatient glycemic control protocol. Objective Accuchecks BSG (last 24hrs): Test 05/03/16 11:46 05/03/16 16:42 05/03/16 20:37 05/04/16 07:22 Bedside Glucose 174 mg/dl (70-99) 212 mg/dl (70-99) 221 mg/dl (70-99) Random Glucose 146 mg/dl (70-99) Test 05/04/16 07:40 Bedside Glucose 141 mg/dl (70-99) HbA1c: Test 04/30/16 13:15 Hemoglobin A1c 10.2 % (4.5-5.6) H Recent Pertinent Medications Outpatient Anti-diabetic Regimen: * Novolin R 120 units with breakfast * NPH 110 units HS * Metformin 1000 mg PO BIDM The patient is currently receiving: * Basal insulin: Lantus 50 units every 12 hours * Correctional Insulin: Novolog Correction per scale ACHS Goal Range: Low 110 mg/dL - High 140 mg/dL Correction Factor: 10 mg/dL/unit * Prandial insulin: Per carb ratio of 1 unit per 3 grams CHO consumed * Oral Agents: On hold for admission Risk Factors for Insulin Resistance: * IVF: (heparin gtt mixed in dextrose, IV abx) * Diet * Baseline poor glycemic control Assessment & Plan ASSESSMENT: * 60yo T2DM known to pharmacy from previous admissions/glycemic consults. Pt typically requires 200+ units of insulin per day per previous admissions with similar risk factors for insulin resistance. * Pt has been requiring ~ 200 units of insulin per day with improving glycemic control * 100 units of basal insulin * 101 units of prandial/correctional insulin * BSGs ranging 121-221mg/dl over the past 24hrs * Current regimen is distributed as 50%:50% basal:prandial to prevent hypo/ hyperglycemia when PO intake changes * AM fasting BSG is near goal range per inpatient targets at 121mg/dl yesterday and 141mg/dl today --> no changes needed to basal insulin dosing at this time * Dextrose containing IVF continues (heparin drip mixed in dextrose- running at 41ml/hr), INR close to therapeutic range. Anticipate drop in insulin needs when heparin drip d/c. Do not want to further increase basal insulin as it may lead to hypo when heparin infusion d/c. * BSGs trend upwards through the day after meals --> will tighten CR * ADA & AACE recommend a goal blood sugar range 140-180 mg/dl for the majority of critically ill & non-critically ill patients. However, more stringent targets may be selected in individual cases. Will utilize more stringent goal range of 100-140mg/dl based on age. PLAN FOR INPATIENT GLYCEMIC CONTROL: * Continue to hold outpatient oral diabetes medications * Continue Basal insulin with Lantus 50 units SQ BID * NOVOLOG per scale ACHS or Q6hrs while NPO * Goal Range: Low 110 mg/dL - High 140 mg/dL * Correction Factor: 10 mg/dL/unit * Tighten Nutritional / Prandial insulin per carb ratio of 1 unit per 2 grams CHO consumed (was 3) * Please note that the plan above was derived based on current level of insulin resistance and hospital stress. These recommendations are appropriate for inpatient admission only. Plan of care upon discharge will need to be reassessed to avoid potential outpatient hypo/hyperglycemia. Thank you. Looking ahead to discharge: * A1c = 10.7% on 04/15/16; goal A1c is < 7% (but ultimately just less than 8% so that patient can qualify for bariatric surgery) * Discussed outpatient regimen in detail with critical care educator (Isidra Vu) and patient * Pt currently takes NPH 110 units SQ HS + Regular insulin 120units SQ daily in AM + Metformin 1,000mg PO BIDM * Regimen needs re-distributed for better glycemic control. * Recommend NPH 50 units SQ BID + Regular insulin 35 units SQ TIDM (these insulins may be mixed together in the same syringe to help minimize number of injections) * Alternatively, may consider changing to pre-mixed insulin to reduce the complexity of regimen. * Recommend Novolin 70/30 premixed insulin 120 units Sq daily with breakfast + 80 units SQ daily with dinner.
--- NOTE | 2016-05-04 12:56 | Hospitalist Progress Note ---
Hospitalist Progress Note Date of Service May 04, 2016. (Jeri Gonsalves ., TIAN-C) Subjective Pt evaluation today including: conversation w/ patient, physical exam, chart review, lab review, review of inpatient medication list Pain: 7/10 bilateral lower leg pain PO Intake: Tolerating PO diet Voiding: no voiding problems Patient reports feeling better overall today. He states that the pain in his lower legs is the same as yesterday. He rates his pain as a 7/10 aching pain in the lower legs bilaterally from the calves down. He states that his weakness and fatigue has continued to improve, and he was able to get up and walk around in the hallway a little bit yesterday with physical therapy. The patient did report some chills and sweats yesterday afternoon, and he was found to have a low-grade fever at that time with a temperature of 37.8C. His chills and sweats have since resolved. Patient reports that his appetite has been good today and yesterday. The patient denies chest pain, palpitations, claudication, cough, wheezing, shortness of breath, nausea, vomiting, abdominal pain, dysuria, hematuria, urinary retention, paralysis, weakness, numbness and tingling. Additional Comments: See HPI for pertinent positives and negatives. All other systems reviewed and negative. (Jeri Gonsalves ., TIAN-C) Objective Vital Signs Date Time Temp Pulse Resp B/P Pulse Ox O2 Delivery O2 Flow Rate FiO2 05/04/16 08:00 99 CPAP 3.0 05/04/16 07:58 37.1 89 18 172/96 99 CPAP 05/04/16 00:18 37.0 92 18 178/81 100 CPAP 2.0 05/04/16 00:10 95 Room Air CPAP 05/03/16 22:24 92 98 5.0 05/03/16 19:15 36.3 05/03/16 17:27 37.8 101 24 167/81 97 Nasal Cannula 3.0 05/03/16 16:00 95 Room Air CPAP 05/03/16 14:13 93 (Jeri Gonsalves ., TIAN-C) Physical Exam General Appearance: WD/WN, no apparent distress, + obese (morbidly obese) Eyes: normal inspection, PERRL, EOMI ENT: normal ENT inspection, hearing grossly normal, pharynx normal Neck: supple, no JVD, trachea midline Respiratory/Chest: lungs clear, normal breath sounds, no respiratory distress Cardiovascular: regular rate, rhythm, no gallop, no murmur Abdomen: normal bowel sounds, non tender, soft Extremities: non-tender (palpation does not elicit his subjective tenderness), no calf tenderness, + swelling (1-2+ pitting edema bilaterally R>L) Neurologic/Psychiatric: alert, normal mood/affect, oriented x 3 Skin: normal color, warm/dry, no rash (Jeri Gonsalves PA-C) Laboratory Results Last 24 Hours Test 05/03/16 16:42 05/03/16 20:37 05/04/16 07:22 05/04/16 07:40 Bedside Glucose 212 mg/dl 221 mg/dl 141 mg/dl White Blood Count 5.49 K/uL Red Blood Count 5.13 M/uL Hemoglobin 14.7 g/dL Hematocrit 43.6 % Mean Corpuscular Volume 85.0 fL Mean Corpuscular Hemoglobin 28.7 pg Mean Corpuscular Hemoglobin Concent 33.7 g/dl RDW Standard Deviation 46.3 fL RDW Coefficient of Variation 14.7 % Platelet Count 207 K/uL Mean Platelet Volume 11.0 fL Prothrombin Time 17.2 SECONDS Prothromb Time International Ratio 1.6 Activated Partial Thromboplast Time 58.0 SECONDS Partial Thromboplastin Ratio 2.2 Sodium Level 139 mmol/L Potassium Level 4.4 mmol/L Chloride Level 102 mmol/L Carbon Dioxide Level 32 mmol/L Anion Gap 5.0 mmol/L Blood Urea Nitrogen 10 mg/dl Creatinine 0.93 mg/dl Est Creatinine Clear Calc Drug Dose 138.6 ml/min Estimated GFR () 103.8 Estimated GFR (Non- 89.5 BUN/Creatinine Ratio 10.6 Random Glucose 146 mg/dl Calcium Level 8.7 mg/dl Magnesium Level 2.4 mg/dl Total Creatine Kinase 428 U/L Test 05/04/16 11:33 Bedside Glucose 215 mg/dl (Jeri Gonsalves, CINDYC) Assessment and Plan 60 y/o male with a history of DM II, HTN, lower extremity edema and recent RLE DVT presents to the ED on 04/30 with weakness, fevers, chills x 1 day [employer]. 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 UA positive for UTI. Sepsis secondary to UTI--improving -Admit to med/surg -Urine culture positive for fitzgerald-sensitive E. coli. -Levaquin switched to Cipro 400 mg IV q12h on 05/03. Day #4 of abx. Pt did not receive any abx on 05/02 despite it being ordered. -D/C IVF as pt has adequate oral intake -Leukocytosis resolved, WBC 5.49 on 05/04 (WBC 20.93-->25.85-->13.91-->6.6--5.49 ) -Patient febrile on 05/03, both in the morning and again in the afternoon -Assess for prostatitis with AURELIO -If patient still having fevers tomorrow and AURELIO is negative, will check KUB for kidney stones -Blood cultures NGTD x 2 -Lactic acidosis resolved: 2.68-->2.3-->0.8 Acute RLE DVT -Doppler U/S 04/30: Nearly occlusive DVT from proximal superficial femoral vein to calf, similar to previous 04/04/16 study. -INR subtherapeutic. INR 1.6 on 05/04. Maintain warfarin 20 mg PO qd, continue to monitor with daily PT/INR -Continue heparin drip Uncontrolled DM II -HgbA1c 10.2 on 04/30 -Pharmacy glycemic control consult, following HTN--worsening. BP is elevated today with systolic blood pressure in the 170s -Continue lisinopril 20 mg PO BID -Hydralazine 10 mg IV x1 now -Cover with hydralazine 10 mg IV q4h prn SBP >160 Chronic pain -Continue Percocet 10/325 mg PO q6h prn pain DVT prophylaxis -Heparin drip, warfarin Code Status -Level I, FULL RESUSCITATION STATUS (Jeri Gonsalves ., PAMarilynC) Attending Attestation: Pt seen/examined, chart reviewed, care plan d/w TIAN Gonsalves. I agree with the corona components of her documentation. "I feel better" More energy, better appetite denies sob having some urinary incontinence Vitals - afebrile, BPs high gen - looks better today neck - no JVD heart - RR, s1, s2 lungs - cta b/l abd - soft, no flank tenderness ext - right leg w/ edema, left leg none - no change AURELIO - prostate enlarged but not boggy, not tender, no nodules A/P: 1. sepsis 2nd to e. coli UTI - cont cipro, day #5 of abx today 2. acute kidney injury 2nd to #1 - resolved 3. recent extensive RLE DVT - INR subtherapeutic - continue coumadin 20mg daily ; daily INR 4. c/o bilateral leg pain - due to DVT, L-spine disease, other? 5. no evidence of prostatitis on exam today 6. mild BPH - follow for now, but if any lower urinary symptoms consider flomax PT, OT appreciated may need placement for rehab Hay ADRIAN MD (Zak Adrian MD)
[2016-05-04] MEDS ORDERED: HydrALAZINE HCL 20 MG/ML VIAL IV. ONE (13:00)
--- NOTE | 2016-05-04 14:07 | PROGRESS NOTE ---
DATE: 05/04/2016 INPATIENT PROGRESS NOTE SUBJECTIVE: The patient is seen today following admission 4 days prior for urosepsis. The patient denies any fever, chills or night sweats at the present time. The patient denies any significant pain in his right forearm. The patient states that he has had no dressings placed on this site for the past 4 days during his hospitalization. OBJECTIVE: The patient's vital signs were reviewed and found to be unremarkable. The patient is afebrile. The wound site today shows no appreciable change in size, still measuring 2 x 1.5 cm. There is a dense blackened eschar in the base. There is no active drainage. No periwound erythema noted. ASSESSMENT: Abscess formation, right forearm, stalled. PLAN: At this time, the site did require scoring for debridement which was performed with a #11 blade. The patient tolerated the procedure well. There was no active bleeding. The site will be managed with Santyl and gauze, changed daily. The patient will be reevaluated in the outpatient clinic with probable further debridement following the Santyl use for the next week. This represented a nonexcisional debridement of less than 20 square cm.
[2016-05-04] MEDS: WARFARIN SOD 10 MG TAB PO SCH (16:42)
[2016-05-05] VITALS: O2SAT 98
[2016-05-05] MEDS: CIPROFLOXACIN / D5W 400 MG in PREMIXED IN D5W 200 ML IV SCH (00:02)
[2016-05-05] MEDS: OXYCODONE/ACETAMINOPHEN 10/325MG TAB PO PRN ×3 (02:26→18:25)
[2016-05-05] MEDS: HEPARIN 25,000 UNIT/500ML D5W 500 ML IV PRN ×2 (02:36→16:21)
[2016-05-05 07:54] VITALS: BP 149/83; PULSE 69; TEMP 36.9; O2SAT 100
[2016-05-05] MEDS: LISINOPRIL 20 MG TAB PO SCH ×2 (08:06→21:19)
[2016-05-05] MEDS: FLUTICASONE PROPIONATE NA SPR 16 GM BTL NAE SCH (08:06)
[2016-05-05] MEDS: RANITIDINE HCL 150 MG TAB PO SCH ×2 (08:06→21:19)
[2016-05-05] MEDS: FUROSEMIDE 40 MG TAB PO SCH (08:06)
[2016-05-05] MEDS: COLLAGENASE OINT 30 GM TUBE EXT SCH (08:06)
--- NOTE | 2016-05-05 08:55 | Pharmacy Progress Note ---
Glycemic Control: Progress Nt Date of Service May 05, 2016. Scope Glycemic Pharmacist consulted by Dr Adams on 04/30/16 for glycemic control and to write orders per [facility] inpatient glycemic control protocol. Objective Accuchecks BSG (last 24hrs): Test 05/04/16 11:33 05/04/16 16:21 05/04/16 20:17 05/05/16 04:44 Bedside Glucose 215 mg/dl (70-99) 202 mg/dl (70-99) 210 mg/dl (70-99) Test 05/05/16 08:07 Bedside Glucose 191 mg/dl (70-99) Laboratory Data (last 24hrs) HbA1c: Test 04/30/16 13:15 Hemoglobin A1c 10.2 % (4.5-5.6) H Recent Pertinent Medications Outpatient Anti-diabetic Regimen: * Novolin R 120 units with breakfast * NPH 110 units HS * Metformin 1000 mg PO BIDM The patient is currently receiving: * Basal insulin: Lantus 50 units every 12 hours * Correctional Insulin: Novolog Correction per scale ACHS Goal Range: Low 110 mg/dL - High 140 mg/dL Correction Factor: 10 mg/dL/unit * Prandial insulin: Per carb ratio of 1 unit per 2 grams CHO consumed * Oral Agents: On hold for admission Risk Factors for Insulin Resistance: * IVF: (heparin gtt mixed in dextrose, IV abx) * Diet: type 2 diabetes (consuming ave of 50 gm CHO with each meal) * Baseline poor glycemic control Assessment & Plan ASSESSMENT: From 05/04/16 note: * 60yo T2DM known to pharmacy from previous admissions/glycemic consults. Pt typically requires 200+ units of insulin per day per previous admissions with similar risk factors for insulin resistance. * Pt has been requiring ~ 200 units of insulin per day with improving glycemic control * 100 units of basal insulin * 101 units of prandial/correctional insulin * BSGs ranging 121-221mg/dl over the past 24hrs * Current regimen is distributed as 50%:50% basal:prandial to prevent hypo/ hyperglycemia when PO intake changes * AM fasting BSG is near goal range per inpatient targets at 121mg/dl yesterday and 141mg/dl today --> no changes needed to basal insulin dosing at this time * Dextrose containing IVF continues (heparin drip mixed in dextrose- running at 41ml/hr), INR close to therapeutic range. Anticipate drop in insulin needs when heparin drip d/c. Do not want to further increase basal insulin as it may lead to hypo when heparin infusion d/c. * BSGs trend upwards through the day after meals --> will tighten CR 05/05/16 * Mr. Dodson received 195 units of insulin yesterday with BSGs ranging from 191 -215 mg/dL in the past 24 hours * CR was tightened yesterday and BSGs remain elevated so I would like to tighten further today * No change to basal insulin for fear of hypoglycemia once heparin drip (mixed in dextrose) is d/c'd PLAN FOR INPATIENT GLYCEMIC CONTROL: * Continue Lantus 50 units BID * Continue Novolog ACHS * Goal 110-140 mg/dL * CF 10 mg/dL/unit * TIGHTEN CR to 1 unit per 1.5 gm CHO consumed (small changes to the CR at this time will provide large changes in insulin doses) RECOMMENDATIONS FOR DISCHARGE: * See glycemic note from 05/04 * Please note that the plan above was derived based on current level of insulin resistance and hospital stress. These recommendations are appropriate for inpatient admission only. Plan of care upon discharge will need to be reassessed to avoid potential outpatient hypo/hyperglycemia. Thank you.
[2016-05-05] MEDS: INSULIN ASPART 100 UNITS/ML 3 ML PEN SC SCH ×4 (08:57→21:31)
[2016-05-05] MEDS: INSULIN GLARGINE SC SCH ×2 (08:58→21:32)
[2016-05-05 09:35] LABS: HEMATOCRIT 43.3 % (42-52); MEAN CELL VOLUME 84.9 fL (80-100); MEAN CORPUSCULAR HEMOGLOBIN 28.8 pg (25-34); MEAN CORPUSCULAR HGB CONC 33.9 g/dl (32-36); MEAN PLATELET VOLUME 11.1 fL (7.4-10.4); PLATELET COUNT 211 K/uL (130-400); WHITE BLOOD COUNT 6.42 K/uL (4.8-10.8)
[2016-05-05 09:50] LABS: BUN/CREATININE RATIO 10.9 (10-20); CALCIUM 8.6 mg/dl (8.5-10.1); CREATININE 0.82 mg/dl (0.60-1.40); POTASSIUM 4.1 mmol/L (3.5-5.1)
[2016-05-05 09:53] LABS: INR 1.9 (0.9-1.1); PARTIAL THROMBOPLASTIN RATIO 2.6; PROTHROMBIN TIME (PATIENT) 20.7 SECONDS (9.0-12.0)
[2016-05-05] MEDS: CIPROFLOXACIN 500 MG TAB PO SCH ×2 (10:44→21:43)
[2016-05-05 13:16] LABS: BASO % 0.8 %; BASO ABS # 0.05 K/uL (0-0.2); COMPLETE YES; EOS % 3.1 %; IG% 5.6 %; LYMPH % 19.6 %; LYMPH ABS # 1.26 K/uL (1.2-3.4); MONO % 16.7 %; NEUT % 54.2 %
[2016-05-05 14:47] VITALS: BP 129/72; PULSE 78; TEMP 36.2; O2SAT 97
--- NOTE | 2016-05-05 15:29 | Hospitalist Progress Note ---
Hospitalist Progress Note Date of Service May 05, 2016. (Jeri Gonsalves ., CINDYC) Subjective Pt evaluation today including: conversation w/ patient, physical exam, chart review, lab review, review of inpatient medication list PO Intake: Tolerating PO diet Voiding: no voiding problems Patient reports feeling well. He states that he is continuing to become stronger every day. He did not have physical therapy yesterday; however, he states that he is feeling better overall. The patient tells me today that the the pain in his legs is actually a chronic issue that he has had ever since a very severe case of bilateral cellulitis a few years ago, which he was told left permanent damage to the soft tissue. He states that the pain is no worse than it typically is and this is at baseline. The patient has remained afebrile and has not had any fevers since 05/03. The patient denies fevers, chills, sweats, chest pain, palpitations, claudication, cough, wheezing, shortness of breath, nausea, vomiting, abdominal pain, dysuria, hematuria, urinary retention, paralysis, weakness, numbness and tingling. Additional Comments: See HPI for pertinent positives and negatives. All other systems reviewed and negative. (Jeri Gonsalves ., PA-C) Objective Vital Signs Date Time Temp Pulse Resp B/P Pulse Ox O2 Delivery O2 Flow Rate FiO2 05/05/16 14:47 36.2 78 20 129/72 97 Room Air 05/05/16 08:00 Room Air 05/05/16 07:54 36.9 69 18 149/83 100 CPAP 5.0 05/05/16 00:00 98 Room Air 05/04/16 23:55 36.6 81 20 138/73 98 Room Air 05/04/16 23:50 74 98 5.0 05/04/16 20:27 78 133/78 99 BiPAP 3.0 05/04/16 16:00 92 Room Air 05/04/16 15:29 36.5 78 18 140/81 92 Room Air (Jeri Gonsalves ., PA-C) Physical Exam General Appearance: WD/WN, no apparent distress, + obese (morbidly obese) Eyes: normal inspection, PERRL, EOMI ENT: normal ENT inspection, hearing grossly normal, pharynx normal Neck: supple, no JVD, trachea midline Respiratory/Chest: lungs clear, normal breath sounds, no respiratory distress Cardiovascular: regular rate, rhythm, no gallop, no murmur Abdomen: normal bowel sounds, non tender, soft Extremities: non-tender, no calf tenderness, + swelling (1+ pitting edema R>L) Neurologic/Psychiatric: alert, normal mood/affect, oriented x 3 Skin: normal color, warm/dry, no rash (Jeri Gonsalves, CHLOE) Laboratory Results Last 24 Hours Test 05/04/16 16:21 05/04/16 20:17 05/05/16 08:07 05/05/16 09:24 Bedside Glucose 202 mg/dl 210 mg/dl 191 mg/dl White Blood Count 6.42 K/uL Red Blood Count 5.10 M/uL Hemoglobin 14.7 g/dL Hematocrit 43.3 % Mean Corpuscular Volume 84.9 fL Mean Corpuscular Hemoglobin 28.8 pg Mean Corpuscular Hemoglobin Concent 33.9 g/dl Platelet Count 211 K/uL Mean Platelet Volume 11.1 fL Neutrophils (%) (Auto) 54.2 % Lymphocytes (%) (Auto) 19.6 % Monocytes (%) (Auto) 16.7 % Eosinophils (%) (Auto) 3.1 % Basophils (%) (Auto) 0.8 % Neutrophils # (Auto) 3.48 K/uL Lymphocytes # (Auto) 1.26 K/uL Monocytes # (Auto) 1.07 K/uL Eosinophils # (Auto) 0.20 K/uL Basophils # (Auto) 0.05 K/uL RDW Standard Deviation 46.7 fL RDW Coefficient of Variation 14.9 % Immature Granulocyte % (Auto) 5.6 % Immature Granulocyte # (Auto) 0.36 K/uL Prothrombin Time 20.7 SECONDS Prothromb Time International Ratio 1.9 Activated Partial Thromboplast Time 68.1 SECONDS Partial Thromboplastin Ratio 2.6 Sodium Level 137 mmol/L Potassium Level 4.1 mmol/L Chloride Level 101 mmol/L Carbon Dioxide Level 30 mmol/L Anion Gap 6.0 mmol/L Blood Urea Nitrogen 9 mg/dl Creatinine 0.82 mg/dl Est Creatinine Clear Calc Drug Dose 157.2 ml/min Estimated GFR () 112.2 Estimated GFR (Non- 96.8 BUN/Creatinine Ratio 10.9 Random Glucose 258 mg/dl Calcium Level 8.6 mg/dl Test 05/05/16 11:47 Bedside Glucose 241 mg/dl (Jeri Gonsalves ., CHLOE) Assessment and Plan 60 y/o male with a history of DM II, HTN, lower extremity edema and recent RLE DVT presents to the ED on 04/30 with weakness, fevers, chills x 1 day [employer]. 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 UA positive for UTI. Sepsis secondary to UTI--improving -Admit to med/surg -Urine culture positive for fitzgerald-sensitive E. coli. -Switch IV Cipro to Cipro 500 mg PO BID. Day #5 of abx. Pt did not receive any abx on 05/02 despite it being ordered. -D/C IVF as pt has adequate oral intake -Leukocytosis resolved, WBC 6.42 on 05/04 (WBC 20.93-->25.85-->13.91-->6.6--5.49 -->6.42) -Afebrile for over 24 hours. -AURELIO negative for prostatitis -Blood cultures NGTD x 2 -Lactic acidosis resolved: 2.68-->2.3-->0.8 Acute RLE DVT -Doppler U/S 04/30: Nearly occlusive DVT from proximal superficial femoral vein to calf, similar to previous 04/04/16 study. -INR subtherapeutic. -INR 1.9 on 05/05. Continue warfarin 20 mg PO qd. Continue to monitor with daily PT/INR. -Continue heparin drip Wound on right upper extremity -Wound care provider following. Non-excisional debridement performed on 05/04. Wound covered in Santyl and gauze to be changed daily Uncontrolled DM II -HgbA1c 10.2 on 04/30 -Pharmacy glycemic control consult, following HTN--improved and stable -Continue lisinopril 20 mg PO BID -Hydralazine 10 mg IV x1 on 05/04 -BP now stable with SBP in 130s to 140s -Cover with hydralazine 10 mg IV q4h prn SBP >160 Chronic pain -Continue Percocet 10/325 mg PO q6h prn pain DVT prophylaxis -Heparin drip, warfarin Code Status -Level I, FULL RESUSCITATION STATUS Dispo -PT/OT recommend acute rehab. Case management following. Referrals placed to [facility]. This chart was completed in part utilizing [employer] Speech Voice Recognition software. Attempts were made to minimize the grammatical errors, random word insertions, pronoun errors and incomplete sentences. Any formal questions or concerns about the content, text or information contained within the body of this dictation should be directly addressed to the provider for clarification. (Jeri Gonsalves ., PA-C) Attending Attestation: Pt seen/examined, chart reviewed, care plan d/w TIAN Gonsalves. I agree with the corona components of her documentation. no complaints of sob, cp, abd pain urinary incontinence - resolved Vitals - afebrile BPs stable gen - NAD neck - no JVD heart - RRR, s1, s2 lungs - cta b/l abd - soft, no flank tenderness,obese ext - right leg w/ edema, left leg none - no change INR 1.9 A/P: 1. sepsis 2nd to e. coli UTI - cont cipro, day #6 of abx today; ok to change to PO cipro from IV 2. acute kidney injury 2nd to #1 - resolved 3. recent extensive RLE DVT - INR subtherapeutic but improved to 1.9 today - continue coumadin 20mg daily; daily INR 4. c/o bilateral leg pain - due to DVT, L-spine disease, other? - improved 5. T2DM - appreciate pharmacy management 6. mild BPH - follow for now, but if any lower urinary symptoms consider flomax PT, OT appreciated dispo - unclear; may need rehab Hay ADRIAN MD (Zak Adrian MD)
[2016-05-05 16:00] VITALS: O2SAT 97
[2016-05-05] MEDS: WARFARIN SOD 10 MG TAB PO SCH (16:25)
[2016-05-05 22:11] VITALS: O2SAT 98
[2016-05-06] VITALS: O2SAT 98
[2016-05-06 00:51] VITALS: BP 129/73; PULSE 73; TEMP 36.9; O2SAT 100
[2016-05-06] MEDS: HEPARIN 25,000 UNIT/500ML D5W 500 ML IV PRN ×2 (04:03→09:01)
[2016-05-06] MEDS: FLUTICASONE PROPIONATE NA SPR 16 GM BTL NAE SCH (08:00)
[2016-05-06] MEDS: LISINOPRIL 20 MG TAB PO SCH ×2 (08:11→21:36)
[2016-05-06] MEDS: COLLAGENASE OINT 30 GM TUBE EXT SCH (08:11)
[2016-05-06] MEDS: CIPROFLOXACIN 500 MG TAB PO SCH ×2 (08:11→21:36)
[2016-05-06] MEDS: FUROSEMIDE 40 MG TAB PO SCH (08:11)
[2016-05-06] MEDS: RANITIDINE HCL 150 MG TAB PO SCH ×2 (08:11→21:36)
[2016-05-06] MEDS: OXYCODONE/ACETAMINOPHEN 10/325MG TAB PO PRN ×3 (08:17→22:02)
[2016-05-06 08:52] LABS: INR 2.3 (0.9-1.1); PARTIAL THROMBOPLASTIN RATIO 3.1
[2016-05-06] MEDS: INSULIN ASPART 100 UNITS/ML 3 ML PEN SC SCH ×4 (09:12→21:24)
[2016-05-06] MEDS: INSULIN GLARGINE SC SCH ×2 (09:13→21:42)
--- NOTE | 2016-05-06 12:36 | Hospitalist Progress Note ---
Hospitalist Progress Note Date of Service May 06, 2016. (Jeri Gonsalves ., CINDYC) Subjective Pt evaluation today including: conversation w/ patient, physical exam, chart review, lab review, review of inpatient medication list PO Intake: Tolerating PO diet Voiding: no voiding problems The patient reports feeling better. He states that he was able to walk an entire lap around in the hallway with physical therapy this morning. He states that his weakness continues to improve, although he still does not feel 100%. He denies any new complaints, stating that the pain in his legs is the same as his normal chronic pain. He is eating and urinating well without difficulties. He had a bowel movement yesterday. The patient denies fevers, chills, sweats , chest pain, palpitations, claudication, cough, wheezing, shortness of breath, nausea, vomiting, abdominal pain, dysuria, hematuria, urinary retention, paralysis, numbness and tingling. Additional Comments: See HPI for pertinent positives and negatives. All other systems reviewed and negative. (Jeri Gonsalves ., TIAN-C) Objective Vital Signs Date Time Temp Pulse Resp B/P Pulse Ox O2 Delivery O2 Flow Rate FiO2 05/06/16 08:00 Room Air 05/06/16 00:51 36.9 73 16 129/73 100 BiPAP 5.0 05/06/16 00:00 98 Room Air 05/05/16 22:11 98 5.0 05/05/16 16:00 97 Room Air 05/05/16 14:47 36.2 78 20 129/72 97 Room Air (Jeri Gonsalves, TIAN-C) Physical Exam General Appearance: WD/WN, no apparent distress, + obese (morbidly obese) Eyes: normal inspection, PERRL, EOMI ENT: normal ENT inspection, hearing grossly normal, pharynx normal Neck: supple, no JVD, trachea midline Respiratory/Chest: lungs clear, normal breath sounds, no respiratory distress Cardiovascular: regular rate, rhythm, no gallop, no murmur Abdomen: normal bowel sounds, non tender, soft Extremities: non-tender, normal inspection, + swelling (1+ pitting edema bilaterally) Neurologic/Psychiatric: alert, normal mood/affect, oriented x 3 Skin: normal color, warm/dry, no rash (Jeri Gonsalves, TIAN-C) Laboratory Results Last 24 Hours Test 3/30/17 16:27 05/05/16 20:09 05/06/16 08:00 05/06/16 08:15 Bedside Glucose 141 mg/dl 154 mg/dl 105 mg/dl Prothrombin Time 26.0 SECONDS Prothromb Time International Ratio 2.3 Activated Partial Thromboplast Time 80.1 SECONDS Partial Thromboplastin Ratio 3.1 (Jeri Gonsalves ., CHLOE) Assessment and Plan 60 y/o male with a history of DM II, HTN, lower extremity edema and recent RLE DVT presents to the ED on 04/30 with weakness, fevers, chills x 1 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 UA positive for UTI. Sepsis secondary to UTI--improving -Admit to med/surg -Urine culture positive for fitzgerald-sensitive E. coli. -Switch IV Cipro to Cipro 500 mg PO BID. Day #6 of abx. Pt did not receive any abx on 05/02 despite it being ordered. -D/C IVF as pt has adequate oral intake -Leukocytosis resolved, WBC 6.42 on 05/04 (WBC 20.93-->25.85-->13.91-->6.6--5.49 -->6.42) -Remains afebrile -AURELIO negative for prostatitis -Blood cultures NGTD x 2 -Lactic acidosis resolved: 2.68-->2.3-->0.8 Acute RLE DVT -Doppler U/S 04/30: Nearly occlusive DVT from proximal superficial femoral vein to calf, similar to previous 04/04/16 study. -INR subtherapeutic on arrival -INR 2.3 on 05/06. Continue warfarin 20 mg PO qd. -Discontinue heparin drip Wound on right upper extremity -Wound care provider following. Non-excisional debridement performed on 05/04. Wound covered in Santyl and gauze to be changed daily Uncontrolled DM II -HgbA1c 10.2 on 04/30 -Pharmacy glycemic control consult, following HTN--stable, SBP in 120s -Continue lisinopril 20 mg PO BID -Hydralazine 10 mg IV x1 on 05/04 -Cover with hydralazine 10 mg IV q4h prn SBP >160 Chronic pain -Continue Percocet 10/325 mg PO q6h prn pain DVT prophylaxis -Warfarin as above Code Status -Level I, FULL RESUSCITATION STATUS Dispo -PT/OT recommend acute rehab. Case management following. Referrals placed to [facility]. Awaiting determination. This chart was completed in part utilizing [employer]Key[employer] Speech Voice Recognition software. Attempts were made to minimize the grammatical errors, random word insertions, pronoun errors and incomplete sentences. Any formal questions or concerns about the content, text or information contained within the body of this dictation should be directly addressed to the provider for clarification. (Jeri Gonsalves ., PA-C) Attending Attestation: Pt seen/examined, chart reviewed, care plan d/w TIAN Gonsalves. I agree with the corona components of her documentation. no complaints of sob, cp, abd pain after much discussion he IS agreeable to rehab daughter confirms her father is NOT at physical baseline Vitals - afebrile BPs stable gen - NAD neck - no JVD heart - RRR, s1, s2 lungs - cta b/l abd - soft, obese ext - no change in amount of edema INR 2.3 A/P: 1. sepsis 2nd to e. coli UTI - cont cipro, day #7 of abx today. plan 10 day course. 2. acute kidney injury 2nd to #1 - resolved 3. recent extensive RLE DVT - INR therapeutic at 2.3 today - continue coumadin 20mg daily; stop heparin drip 4. T2DM - appreciate pharmacy management 5. mild BPH - follow for now, but if any lower urinary symptoms consider flomax patient IS agreeable to rehab and referrals made appreciate SW assistance daughter updated Hay ADRIAN MD (Zak Adrian MD)
[2016-05-06 15:16] VITALS: BP 125/78; PULSE 81; TEMP 36.9; O2SAT 98
[2016-05-06] MEDS: WARFARIN SOD 10 MG TAB PO SCH (15:54)
[2016-05-06 23:18] VITALS: BP 156/83; PULSE 96; TEMP 36.7; O2SAT 94
[2016-05-06 23:52] VITALS: PULSE 74; O2SAT 97
[2016-05-07] VITALS: O2SAT 99
[2016-05-07] MEDS: OXYCODONE/ACETAMINOPHEN 10/325MG TAB PO PRN ×3 (05:16→21:05)
[2016-05-07 08:00] VITALS: O2SAT 99
[2016-05-07 08:25] VITALS: BP 119/74; PULSE 71; TEMP 36.3; O2SAT 99
--- NOTE | 2016-05-07 08:26 | Hospitalist Progress Note ---
Hospitalist Progress Note Date of Service May 07, 2016. (Althea Armando PA-C) Subjective Pt evaluation today including: conversation w/ patient, physical exam, chart review, lab review, review of studies, review of inpatient medication list Pain: none PO Intake: good Voiding: no voiding problems The patient was seen and examined this morning. Patient reports feeling well today, patient has no acute complaints. Discussion was held regarding rehabilitation after hospitalization. Patient was initially stating that he was not interested in rehabilitation, although he is agreeable to going this time around she has never been PT OT rehabilitation before. Additional Comments: Constitutional: No fever, chills, sweats, fatigue or weakness Eyes: No diplopia, no changes in vision ENT: No sore throat, tinnitus, or trouble swallowing Respiratory: No shortness of breath, No dyspnea at rest or on exertion, no cough or sputum Cardiovascular: No chest pain, palpitations, or flutter Abdomen: No pain, No constipation, No diarrhea, No nausea, No vomiting Musculoskeletal: No calf pain, No joint pain, mild LLE swelling, + erythema of LLE is improving Genitourinary : No dysuria or urinary frequency, No hematuria Neurologic: + Peripheral neuropathy, no difficulty with ambulation, uses walker Psychiatric: No depression or anxiety symptoms Endocrine: No fatigue Integumentary: No itch, No rash (Althea Armando PA-C) Objective Vital Signs Date Time Temp Pulse Resp B/P Pulse Ox O2 Delivery O2 Flow Rate FiO2 05/07/16 00:00 99 CPAP 3.0 05/06/16 23:52 74 97 5.0 05/06/16 23:18 36.7 96 18 156/83 94 Room Air 05/06/16 21:40 5.0 05/06/16 15:45 Room Air 05/06/16 15:16 36.9 81 18 125/78 98 Room Air (Althea Armando PA-C) Physical Exam Notes: General: awake, alert, no apparent distress, +morbidly obese Head: Normocephalic, atraumatic ENT: PERRL, EOMI, no pharyngeal exudate, mucous membranes moist Chest: Breath sounds are diminished at bases although auscultation difficult due to body habitus, on room air, no adventitious breath sounds Cardiac: Regular rate and rhythm, no murmur, no JVD, normal peripheral pulses, good capillary refill Abdominal: NABS x 4 quadrants, soft, nontender to palpation, no rebound, guarding or tenderness Extremities: + Erythema LLE around ankle only, does not extend up the leg or into the foot, +1 pitting edema of BLE, calfs nontender to palpation Psych: Normal mood and affect Neuro: AAO x 3, strength intact bilaterally and related 5/5, no motor deficits, speech is clear (Althea Armando, CHLOE) Laboratory Results Last 24 Hours Test 05/06/16 12:34 05/06/16 17:38 05/06/16 20:10 05/07/16 04:44 Bedside Glucose 117 mg/dl 93 mg/dl 119 mg/dl Test 05/07/16 07:53 Bedside Glucose 128 mg/dl (Althea Armando, CHLOE) Assessment and Plan 60 y/o male with a history of DM II, HTN, lower extremity edema and recent RLE DVT presents to the ED on 04/30 with 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 UA positive for UTI. Urosepsis Sepsis secondary to e.coli UTI - UCx with fitzgerald-sensitive E. coli. - Cont Cipro 500 mg PO BID. (Day #7) Pt did not receive any abx on 05/02 - No further need for IVFs, lactic acidosis resolved with hydration, pt tolerating oral intake without difficulty - Leukocytosis resolved, trended down from 25K to now 6.42 - BCx NGTD x 2 resulted Acute RLE DVT -Doppler U/S 04/30: Nearly occlusive DVT from proximal superficial femoral vein to calf, similar to previous 04/04/16 study. -INR =2.4. Continue warfarin 20 mg PO qd. Will need f/u with coumadin clinic after hospitalization. Wound on RUE -Wound care provider following. Non-excisional debridement performed on 05/04. Wound covered in Santyl and gauze to be changed daily Uncontrolled DM II - HgbA1c 10.2 on 04/30 - Pharmacy glycemic control consult, following - Diabetic diet and exercise education was provided to the patient, his questions and concerns were addressed. HTN- stable - Continue lisinopril 20 mg PO BID - Hydralazine 10 mg IV q4h prn SBP >160 Chronic pain - Continue Percocet 10/325 mg PO q6h prn pain DVT ppx: Warfarin, teds, oob Code Status: FULL CODE Dispo: PT/OT recommend acute rehab. Case management following. Referrals placed to [facility]. Awaiting determination. (Althea Armando, CHLOE) Attending Attestation: pt seen/examined, chart reviewed, care plan d/w TIAN Armando. I agree w/ the corona components of her documentation. no issues overnight pt feels good ambulating with assistance and with walker still willing to go to rehab VSS no fever gen - nad, obese heart - RRR, s1, s2 lungs - CTA b/l abd - soft RUE - volar aspect forearm - ulcer with yellow exudative material in center of ulcer; no cellulitis A/P: UTI - resolved; finish abx. RLE DVT dx 03/2016 - INR therapeutic on coumadin; continue 20mg daily. severe deconditioning - rehab; hopefully [facility] on Monday05/09/16. Hay ADRIAN MD (Zak Adrian MD)
[2016-05-07 08:46] LABS: HEMATOCRIT 38.3 % (42-52); MEAN CORPUSCULAR HEMOGLOBIN 28.1 pg (25-34); MEAN CORPUSCULAR HGB CONC 33.4 g/dl (32-36); MEAN PLATELET VOLUME 9.8 fL (7.4-10.4); PLATELET COUNT 244 K/uL (130-400); RED BLOOD COUNT 4.56 M/uL (4.7-6.1); WHITE BLOOD COUNT 5.47 K/uL (4.8-10.8)
[2016-05-07] MEDS: COLLAGENASE OINT 30 GM TUBE EXT SCH (08:53)
[2016-05-07] MEDS: FLUTICASONE PROPIONATE NA SPR 16 GM BTL NAE SCH (08:53)
[2016-05-07] MEDS: FUROSEMIDE 40 MG TAB PO SCH (08:54)
[2016-05-07] MEDS: RANITIDINE HCL 150 MG TAB PO SCH ×2 (08:54→21:05)
[2016-05-07] MEDS: CIPROFLOXACIN 500 MG TAB PO SCH ×2 (08:55→21:06)
[2016-05-07 09:03] LABS: INR 2.4 (0.9-1.1); PROTHROMBIN TIME (PATIENT) 26.4 SECONDS (9.0-12.0)
[2016-05-07] MEDS: INSULIN ASPART 100 UNITS/ML 3 ML PEN SC SCH ×4 (09:04→22:20)
[2016-05-07] MEDS: INSULIN GLARGINE SC SCH ×2 (09:05→21:11)
[2016-05-07 09:11] LABS: BUN/CREATININE RATIO 19.6 (10-20); CALCIUM 8.6 mg/dl (8.5-10.1); CREATININE 0.71 mg/dl (0.60-1.40); POTASSIUM 4.1 mmol/L (3.5-5.1)
[2016-05-07 09:20] LABS: BASO % 0.9 %; BASO ABS # 0.05 K/uL (0-0.2); COMPLETE YES; EOS % 4.6 %; IG% 6.8 %; LYMPH % 31.6 %; LYMPH ABS # 1.73 K/uL (1.2-3.4); MONO % 16.1 %
[2016-05-07] MEDS: LISINOPRIL 20 MG TAB PO SCH ×2 (10:15→21:06)
--- NOTE | 2016-05-07 13:25 | Pharmacy Progress Note ---
Glycemic: Assessment & Plan Date of Service May 07, 2016. Assessment & Plan Assessment * BSGs ranging 93 - 175 mg/dl over the past 24hrs. * Minor adjustments to Lantus and Novolog made to regimen yesterday 2nd discontinuation of heparin drip seem to have kept BSG's stable * No further changes to stressors Plan Continue the following: * Basal insulin: Lantus 40 units every 12 hours (1/2 dose for BSG < 100 mg/dL) * Correctional Insulin: Novolog Correction per scale ACHS Goal Range: Low 110 mg/dL - High 140 mg/dL Correction Factor: 10 mg/dL/unit * Prandial insulin: Per carb ratio of 1 unit per 2 grams CHO consumed Pharmacy will continue to monitor patient daily and write orders per [facility] inpatient glycemic control protocol. Thanks. * Please note that the plan above was derived based on current level of insulin resistance and hospital stress. These recommendations are appropriate for inpatient admission only. Plan of care upon discharge will need to be reassessed to avoid potential outpatient hypo/hyperglycemia.
[2016-05-07 16:00] VITALS: O2SAT 97
[2016-05-07 16:37] VITALS: BP 118/66; PULSE 80; TEMP 36.8; O2SAT 95
[2016-05-07] MEDS: WARFARIN SOD 10 MG TAB PO SCH (16:59)
[2016-05-07 23:50] VITALS: PULSE 97; O2SAT 97
[2016-05-08] VITALS (7 sets, daily range): BP systolic 133–161; BP diastolic 63–84; PULSE 79–95; TEMP 36.4–36.9; O2SAT 93–100
[2016-05-08] MEDS: OXYCODONE/ACETAMINOPHEN 10/325MG TAB PO PRN ×3 (04:35→18:24)
[2016-05-08 07:34] LABS: HEMATOCRIT 41.8 % (42-52); MEAN CELL VOLUME 83.6 fL (80-100); MEAN CORPUSCULAR HEMOGLOBIN 27.2 pg (25-34); MEAN CORPUSCULAR HGB CONC 32.5 g/dl (32-36); MEAN PLATELET VOLUME 9.8 fL (7.4-10.4); PLATELET COUNT 292 K/uL (130-400); WHITE BLOOD COUNT 6.67 K/uL (4.8-10.8)
[2016-05-08] MEDS: FLUTICASONE PROPIONATE NA SPR 16 GM BTL NAE SCH (08:00)
[2016-05-08 08:08] LABS: BUN/CREATININE RATIO 19.6 (10-20); CALCIUM 8.7 mg/dl (8.5-10.1); CREATININE 0.73 mg/dl (0.60-1.40); POTASSIUM 4.1 mmol/L (3.5-5.1)
[2016-05-08 08:31] LABS: BASO % 0.4 %; BASO ABS # 0.03 K/uL (0-0.2); COMPLETE YES; EOS % 4.3 %; GIANT PLATELETS 1+; IG% 5.5 %; LYMPH % 30.6 %; LYMPH ABS # 2.04 K/uL (1.2-3.4); MONO % 14.8 %; NEUT % 44.4 %; SPHEROCYTE 1+
[2016-05-08] MEDS: COLLAGENASE OINT 30 GM TUBE EXT SCH (09:06)
[2016-05-08] MEDS: INSULIN ASPART 100 UNITS/ML 3 ML PEN SC SCH ×4 (09:10→22:00)
[2016-05-08] MEDS: INSULIN GLARGINE SC SCH ×2 (09:11→21:09)
[2016-05-08] MEDS: RANITIDINE HCL 150 MG TAB PO SCH ×2 (09:12→21:07)
[2016-05-08] MEDS: CIPROFLOXACIN 500 MG TAB PO SCH ×2 (09:12→21:06)
[2016-05-08] MEDS: FUROSEMIDE 40 MG TAB PO SCH (09:12)
[2016-05-08] MEDS: LISINOPRIL 20 MG TAB PO SCH ×2 (09:13→21:06)
[2016-05-08 10:02] LABS: INR 2.2 (0.9-1.1); PROTHROMBIN TIME (PATIENT) 24.4 SECONDS (9.0-12.0)
[2016-05-08] MEDS: CYANOCOBALAMIN 1000 MCG/ML VIAL IM SCH (11:54)
--- NOTE | 2016-05-08 13:03 | Hospitalist Progress Note ---
Hospitalist Progress Note Date of Service May 08, 2016. (Althea Armando PA-C) Subjective Pt evaluation today including: conversation w/ patient, physical exam, chart review, lab review, review of studies, review of inpatient medication list Pain: None PO Intake: Good Voiding: no voiding problems The patient was seen and examined this morning. Pt reports doing well overall. He reports feeling his legs are slightly more swollen than normal. He is feeling tired today and has cpap on and trying to take a nap, he states he was up very early this morning. Constitutional: No chills, No fatigue, No fever Eyes: No diplopia, No redness ENT: No dental problems, No nasal symptoms Respiratory: No cough, No dyspnea on exertion, No shortness of breath Cardiovascular: No chest pain, No palpitations Abdomen: No constipation, No diarrhea, No nausea, No pain, No vomiting Musculoskeletal: + swelling, No joint pain, No muscle pain Neurologic: No numbness/tingling, No weakness Endo: No fatigue Skin: No itch, No rash (Althea Armando PA-C) Objective Vital Signs Date Time Temp Pulse Resp B/P Pulse Ox O2 Delivery O2 Flow Rate FiO2 05/08/16 08:08 36.6 93 19 133/71 99 CPAP 05/08/16 00:19 36.9 93 20 161/76 94 Room Air 05/08/16 00:00 Room Air 05/07/16 23:50 97 97 5.0 05/07/16 20:00 Room Air 05/07/16 16:37 36.8 80 20 118/66 95 Room Air 05/07/16 16:00 97 Room Air CPAP (Althea Armando PA-C) Physical Exam General Appearance: WD/WN, no apparent distress, + obese (morbidly) Eyes: PERRL, EOMI ENT: hearing grossly normal, pharynx normal Neck: supple, no JVD Respiratory/Chest: + pertinent finding (Breath sounds are diminished at bases although auscultation difficult due to body habitus, was wearing bipap, no adventitious breath sounds) Cardiovascular: regular rate, rhythm, no murmur Abdomen: normal bowel sounds, non tender, soft, + pertinent finding (obese) Extremities: non-tender, no calf tenderness, + pedal edema (2+ pedal edema), + pertinent finding (+ Erythema LLE around ankle only, does not extend up the leg or into the foot) Neurologic/Psychiatric: alert, normal mood/affect, oriented x 3 Skin: normal color, warm/dry (Althea Armando, CHLOE) Laboratory Results Last 24 Hours Test 05/07/16 16:27 05/07/16 20:06 05/07/16 22:06 05/08/16 07:17 Bedside Glucose 127 mg/dl 152 mg/dl 147 mg/dl White Blood Count 6.67 K/uL Red Blood Count 5.00 M/uL Hemoglobin 13.6 g/dL Hematocrit 41.8 % Mean Corpuscular Volume 83.6 fL Mean Corpuscular Hemoglobin 27.2 pg Mean Corpuscular Hemoglobin Concent 32.5 g/dl Platelet Count 292 K/uL Mean Platelet Volume 9.8 fL Neutrophils (%) (Auto) 44.4 % Lymphocytes (%) (Auto) 30.6 % Monocytes (%) (Auto) 14.8 % Eosinophils (%) (Auto) 4.3 % Basophils (%) (Auto) 0.4 % Neutrophils # (Auto) 2.95 K/uL Lymphocytes # (Auto) 2.04 K/uL Monocytes # (Auto) 0.99 K/uL Eosinophils # (Auto) 0.29 K/uL Basophils # (Auto) 0.03 K/uL RDW Standard Deviation 45.5 fL RDW Coefficient of Variation 14.9 % Immature Granulocyte % (Auto) 5.5 % Immature Granulocyte # (Auto) 0.37 K/uL Giant Platelets 1+ Spherocytes 1+ Sodium Level 140 mmol/L Potassium Level 4.1 mmol/L Chloride Level 103 mmol/L Carbon Dioxide Level 30 mmol/L Anion Gap 7.0 mmol/L Blood Urea Nitrogen 14 mg/dl Creatinine 0.73 mg/dl Est Creatinine Clear Calc Drug Dose 176.6 ml/min Estimated GFR () 117.7 Estimated GFR (Non- 101.5 BUN/Creatinine Ratio 19.6 Random Glucose 156 mg/dl Calcium Level 8.7 mg/dl Test 05/08/16 07:37 05/08/16 09:30 05/08/16 11:33 Bedside Glucose 148 mg/dl 212 mg/dl Prothrombin Time 24.4 SECONDS Prothromb Time International Ratio 2.2 (Althea Armando PA-C) Assessment and Plan 60 y/o male with a history of DM II, HTN, lower extremity edema and recent RLE DVT presents to the ED on 04/30 with weakness, 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 UA positive for UTI. Urosepsis Sepsis secondary to e.coli UTI - UCx with fitzgerald-sensitive E. coli. - Cont Cipro 500 mg PO BID. (Day #8) Pt did not receive any abx on 05/02 - No further need for IVFs, lactic acidosis resolved with hydration, pt tolerating oral intake without difficulty - Leukocytosis resolved, trended down from 25K to now 6K - BCx NGTD x 2 resulted Acute RLE DVT -Doppler U/S 04/30: Nearly occlusive DVT from proximal superficial femoral vein to calf, similar to previous 04/04/16 study. -INR =2.2. Continue warfarin 20 mg PO qd. Will need f/u with coumadin clinic after hospitalization. Wound on RUE -Wound care provider following. Non-excisional debridement performed on 05/04. Wound covered in Santyl and gauze to be changed daily Uncontrolled DM II - HgbA1c 10.2 on 04/30 - Pharmacy glycemic control consult, following - Diabetic diet and exercise education was provided to the patient, his questions and concerns were addressed. HTN- stable - Continue lisinopril 20 mg PO BID - Hydralazine 10 mg IV q4h prn SBP >160 Chronic pain - Continue Percocet 10/325 mg PO q6h prn pain DVT ppx: Warfarin, teds, oob Code Status: FULL CODE Dispo: PT/OT recommend acute rehab. Case management following. Referrals placed to [facility] and was denied, plan to do peer to peer review tomorrow, Cm to place referral to [facility] as back up plan. Awaiting determination. (Althea Armando PA-C) Attending Attestation: pt seen/examined, chart reviewed, care plan d/w TIAN Armando. I agree w/ the corona components of her documentation. no issues overnight again patient confirms he is willing to go to rehab at either [facility] or [facility] VSS no fever gen - nad, obese heart - RRR, s1, s2 lungs - CTA b/l abd - soft INR 2.2 recent dx of B12 deficiency with level of <300 A/P: UTI - resolved; finish abx course (today is day # 9 of abx; stop after 10 days in total). Again had no evidence of complicating prostatitis on exam earlier this week. RLE DVT dx 03/2016 - INR therapeutic on coumadin at 2.2; continue 20mg daily. severe deconditioning - rehab; hopefully [facility] on Monday05/09/16 if we can appeal insurance denial. recent dx of Vitamin B12 def - resume B12 injections. Hay ADRIAN MD (Zak Adrian MD)
[2016-05-08] MEDS: WARFARIN SOD 10 MG TAB PO SCH (18:25)
[2016-05-09] MEDS: OXYCODONE/ACETAMINOPHEN 10/325MG TAB PO PRN ×3 (02:29→14:08)
[2016-05-09 07:40] LABS: INR 2.1 (0.9-1.1); PROTHROMBIN TIME (PATIENT) 23.4 SECONDS (9.0-12.0)
[2016-05-09 07:50] VITALS: BP 128/82; PULSE 71; TEMP 36.4; O2SAT 97
[2016-05-09 08:00] VITALS: O2SAT 96
[2016-05-09] MEDS: FLUTICASONE PROPIONATE NA SPR 16 GM BTL NAE SCH (08:00)
[2016-05-09] MEDS: CIPROFLOXACIN 500 MG TAB PO SCH (08:27)
[2016-05-09] MEDS: COLLAGENASE OINT 30 GM TUBE EXT SCH (08:27)
[2016-05-09] MEDS: RANITIDINE HCL 150 MG TAB PO SCH (08:28)
[2016-05-09] MEDS: FUROSEMIDE 40 MG TAB PO SCH (08:28)
[2016-05-09] MEDS: CYANOCOBALAMIN 1000 MCG/ML VIAL IM SCH (08:28)
[2016-05-09] MEDS: LISINOPRIL 20 MG TAB PO SCH (08:28)
[2016-05-09] MEDS: INSULIN ASPART 100 UNITS/ML 3 ML PEN SC SCH ×2 (08:33→13:05)
[2016-05-09] MEDS: INSULIN GLARGINE SC SCH (08:34)
[2016-05-09] MEDS ORDERED: CIPR-255 PO (15:00)
--- NOTE | 2016-05-09 15:02 | Discharge Instructions ---
Discharge Instructions Date of Service May 09, 2016. Admission Reason for Admission: Sepsis Discharge Discharge Diagnosis / Problem: Sepsis Discharge Goals Goal(s): Improve function Activity Recommendations Activity Limitations: resume your previous activity (as tolerated) . Current Hospital Diet Patient's current hospital diet: Diabetes Type 2 Diet Discharge Diet Recommended Diet: AHA Diet (Heart Healthy), Diabetes Type 2 Diet Pending Studies Studies pending at discharge: no Laboratory Results Hemoglobin A1c Test 04/30/16 13:15 Range/Units Estimated Average Glucose 246 mg/dl Hemoglobin A1c 10.2 H 4.5-5.6 % Medical Emergencies . Who to Call and When: Medical Emergencies: If at any time you feel your situation is an emergency, please call 911 immediately. . Non-Emergent Contact Non-Emergency issues call your: Primary Care Provider . . "Provider Documentation" section prepared by Meggan Minor. VTE Core Measure Inpt VTE Proph given/why not?: Warfarin (Coumadin)
[2016-05-09 16:00] VITALS: O2SAT 98
[2016-05-09] MEDS ORDERED: CMD10 PO (16:30)
[2016-05-09 16:35] VITALS: BP 138/66; PULSE 72; TEMP 36.6; O2SAT 96
--- NOTE | 2016-05-09 16:37 | Discharge Summary ---
Discharge Summary Date of Service May 09, 2016. Discharge Summary Admission Date: Apr 30, 2016 at 16:37 Discharge Date: May 09, 2016 Discharge Disposition: Home with services Principal Diagnosis: Sepsis due to UTI Immunizations: Have You Had Influenza Vaccine: Yes History of Tetanus Vaccine?: Yes Tetanus Immunization Date: Aug 28, 2007 History of Pneumococcal: Yes History of Hepatitis B Vaccine: No Medication Reconciliation New Medications: Ciprofloxacin Hcl (Cipro) 500 Mg Tab 500 MG PO BID for 4 Days, #8 TAB Warfarin Sod (Coumadin) 10 Mg Tab 20 MG PO DAILY@1600 for 30 Days, #30 TAB Continued Medications: Albuterol Hfa (Ventolin Hfa) 200 Puffs/95858 Mcg Aers 2 PUFFS INH Q4H PRN for SOB/Wheezing, #1 INHALER Ergocalciferol (Vitamin D 32991 Unit) 50,000 Unit Cap 53053 UNIT PO WK, CAP TAKES ON MONDAYS Furosemide (Lasix) 40 Mg Tab 40 MG PO DAILY, TAB Insulin Human Regular (Novolin R) 1 Unit/1 Ml Inj 120 UNITS SC QAM Insulin Isophane (Human) (Novolin N Relion) 100 Unit/Ml Inj 110 UNITS SQ HS Lisinopril (Zestril) 20 Mg Tab 20 MG PO BID Metformin Hcl (Glucophage) 1,000 Mg Tab 1000 MG PO BID, TAB Mometasone Furoate (Nasal) (Mometasone Furoate) 50 Mcg/Act Spr 2 SPRAYS AMBER DAILY Oxycodone/Acetaminophen 10MG/325MG (Percocet 10MG/325MG) Tab 1 TAB PO Q6 PRN for Pain, TAB Ranitidine (Zantac) 150 Mg Tab 150 MG PO BID, TAB Discontinued Medications: Warfarin Sodium (Coumadin) 7.5 Mg Tab 2 TABS PO DAILY for 30 Days, #60 TAB Discharge Exam Review of Systems: Constitutional: No fever Respiratory: No shortness of breath Cardiovascular: No chest pain Physical Exam: General Appearance: no apparent distress, + obese Respiratory/Chest: lungs clear, no respiratory distress Cardiovascular: regular rate, rhythm Neurologic/Psychiatric: alert, oriented x 3 Hospital Course 60 y/o male with a history of DM II, HTN, lower extremity edema and recent RLE DVT presents to the ED on 04/30 with weakness, 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 UA positive for UTI. Sepsis secondary to e.coli UTI - UCx with fitzgerald-sensitive E. coli. - Given Cipro 500 mg PO BID. - Leukocytosis resolved, - BCx Negative Acute RLE DVT -Doppler U/S 04/30: Nearly occlusive DVT from proximal superficial femoral vein to calf, similar to previous 04/04/16 study. -INR =2.1. Continue warfarin 20 mg PO qd. Wound on RUE -Wound care provider followed. Non-excisional debridement performed on 05/04. Wound covered in Santyl and gauze to be changed daily. Uncontrolled DM II - HgbA1c 10.2 on 04/30 - Pharmacy glycemic control consulted - Diabetic diet and exercise education was provided to the patient - Discussed compliance with diet - To have outpatient medication adjustment. HTN- stable - Continued lisinopril 20 mg PO BID Chronic pain - Continue Percocet 10/325 mg PO q6h prn pain Referrals placed to [facility] for rehab as per initial PT recommendation but placement was denied despite peer to peer review since patient was walking 260' Total Time Spent: Greater than 30 minutes (35) This includes examination of the patient, discharge planning, medication reconciliation, and communication with other providers. Discharge Instructions Please refer to the electronic Patient Visit Report (Discharge Instructions) for additional information.
[2016-05-09] MEDS: WARFARIN SOD 10 MG TAB PO SCH (16:50)
== END 2016-05-09 17:11 | disposition home or self-care (01) | DRG 872 ==
LOC: ENRESERVDT → ENRESERVTM → C.EDB 11:41 → C.MS4W 16:37
PROVIDERS: ADMIT Hospitalist; ATTEND Family Medicine
PROC: 0HDDXZZ Extraction of Right Lower Arm Skin, External Approach (ICD-10-PCS; principal; 2016-05-04)
DX: A41.51 Sepsis due to Escherichia coli [E. coli] (principal); N39.0 Urinary tract infection, site not specified; I82.491 Acute embolism and thrombosis of other specified deep vein of right lower extremity; N17.9 Acute kidney failure, unspecified; L02.413 Cutaneous abscess of right upper limb; X58.XXXA Exposure to other specified factors, initial encounter; I10 Essential (primary) hypertension; R79.1 Abnormal coagulation profile; G89.29 Other chronic pain; Z83.3 Family history of diabetes mellitus; E11.9 Type 2 diabetes mellitus without complications; Z79.4 Long term (current) use of insulin; Z79.01 Long term (current) use of anticoagulants

== ENCOUNTER → 2016-05-16 | Outpatient (CLI) | payer OTHER ==
[~2016-05-16] MED LIST changes: +CIPR-255 PO; +CMD10 PO; -WARF7.5T PO
[2016-05-16 17:44] LABS: INR 2.3 (0.9-1.1)
== END | disposition home or self-care (01) ==
LOC: C.LABBFT 11:52
PROVIDERS: ATTEND Internal Medicine
DX: I82.409 Acute embolism and thrombosis of unspecified deep veins of unspecified lower extremity (principal)

== ENCOUNTER → 2016-11-22 | Outpatient (CLI) | payer OTHER ==
[~2016-11-22] MED LIST changes: -CIPR-255 PO
[2016-11-22 12:26] LABS: BASO % 0.6 %; BASO ABS # 0.05 K/uL (0-0.2); COMPLETE YES; EOS % 3.8 %; HEMATOCRIT 46.5 % (42-52); IG% 1.1 %; LYMPH % 29.3 %; LYMPH ABS # 2.42 K/uL (1.2-3.4); MEAN CELL VOLUME 88.7 fL (80-100); MEAN CORPUSCULAR HGB CONC 33.8 g/dl (32-36); MONO % 6.9 %; NEUT % 58.3 %; PLATELET COUNT 291 K/uL (130-400); RED BLOOD COUNT 5.24 M/uL (4.7-6.1); WHITE BLOOD COUNT 8.26 K/uL (4.8-10.8)
[2016-11-22 12:43] LABS: ALT/SGPT 57 U/L (12-78); BLOOD UREA NITROGEN 15 mg/dl (7-18); BUN/CREATININE RATIO 14.4 (10-20); CALCIUM 9.3 mg/dl (8.5-10.1); CARBON DIOXIDE 29 mmol/L (21-32); CHLORIDE 100 mmol/L (98-107); CHOLESTEROL 240 mg/dl (0-200); CREATININE 1.02 mg/dl (0.60-1.40); GLUCOSE 139 mg/dl (70-99); POTASSIUM 3.9 mmol/L (3.5-5.1); SODIUM 138 mmol/L (136-145); TRIGLYCERIDES 253 mg/dl (0-150); VERY LOW DENSITY LIPOPROT CALC 51 mg/dl
[2016-11-22 12:47] LABS: ALB/GLOB RATIO 0.9 (0.9-2); ALKALINE PHOSPHATASE 62 U/L (45-117); AST/SGOT 54 U/L (15-37); CHOLESTEROL/HDL RATIO 5.1; HDL CHOLESTEROL 47 mg/dl; LDL CHOLESTEROL CALCULATED 142 mg/dl; PROSTATE SPECIFIC ANTIGEN 0.247 ng/ml (0.000-4.000)
[2016-11-22 12:57] LABS: ESTIMATED AVERAGE GLUCOSE 212 mg/dl; HA1C FLAG Normal (Normal)
== END | disposition home or self-care (01) ==
LOC: C.LABBFT 10:02
PROVIDERS: ATTEND Physician Assistant Medical
DX: E11.49 Type 2 diabetes mellitus with other diabetic neurological complication (principal); E11.65 Type 2 diabetes mellitus with hyperglycemia; Z12.5 Encounter for screening for malignant neoplasm of prostate

== ENCOUNTER → 2017-03-16 | Outpatient (CLI) | payer OTHER ==
[~2017-03-16] MED LIST changes: +INSDGI SC; +LSX80 PO; +NVLGIPEN SC; +OXYC-164 PO; +RANI150T85 PO; +WARF-281 PO; -ZNTT/150 PO
[2017-03-16 13:29] LABS: HEMOGLOBIN A1C 9.4 % (4.5-5.6)
--- NOTE | 2017-03-31 13:23 | CODING QUERY NO DIAGNOSIS ---
Valid Physician Order Needed A valid physician order must be submitted in order to properly bill for the service(s) provided, including date of service(s), valid diagnosis, and physician signature. If these tests are done on a recurring basis the original physician order must be submitted in order to code and bill for the service(s) provided. Please fax us the original, signed physician order so that we may expedite billing to [phone] DOS 03/16/2017 * Hemoglobin A1C (Per Patient Access, no order is in [employer]) Thank you Misa Harris [facility] Information Management
== END | disposition home or self-care (01) ==
LOC: C.LABBFT 10:38
PROVIDERS: ATTEND Internal Medicine
DX: E11.49 Type 2 diabetes mellitus with other diabetic neurological complication (principal); E11.65 Type 2 diabetes mellitus with hyperglycemia; I82.409 Acute embolism and thrombosis of unspecified deep veins of unspecified lower extremity

== ENCOUNTER → 2017-03-21 | Outpatient (CLI) | payer OTHER ==
[~2017-03-21] MED LIST changes: -INSDGI SC; -LSX80 PO; -NVLGIPEN SC; -OXYC-164 PO; -WARF-281 PO
[2017-03-21 18:04] LABS: ALBUMIN 3.4 gm/dl (3.4-5.0); ALT/SGPT 123 U/L (12-78); AST/SGOT 88 U/L (15-37); BLOOD UREA NITROGEN 20 mg/dl (7-18); CALCIUM 9.3 mg/dl (8.5-10.1); CARBON DIOXIDE 29 mmol/L (21-32); CREATININE 1.03 mg/dl (0.60-1.40); GLUCOSE 253 mg/dl (70-99); POTASSIUM 4.3 mmol/L (3.5-5.1); SODIUM 134 mmol/L (136-145)
[2017-03-21 18:07] LABS: ALKALINE PHOSPHATASE 93 U/L (45-117)
== END | disposition home or self-care (01) ==
LOC: C.LABBFT 11:53
PROVIDERS: ATTEND Physician Assistant Medical
DX: E11.49 Type 2 diabetes mellitus with other diabetic neurological complication (principal)

== ENCOUNTER 2017-03-30 15:25 | Inpatient (IN) | payer OTHER ==
[~2017-03-30] VITALS: Ht 177.8 cm; Wt 171.2 kg
[~2017-03-30 15:25] MED LIST changes: -FURO40TA3 PO; -INSU0.01 SQ; -NVLRB SC; -VNTHFA/IN INH
[2017-03-30] MEDS ORDERED: NVLRB SC (15:37)
--- NOTE | 2017-03-30 15:55 | EMERGENCY ROOM VISIT NOTE ---
History Report prepared by Ang: Francis Bradley Under the Supervision of: Dr. Jose Angel Rodriguez M.D. First contact with patient: 15:40 Chief Complaint: HYPOGLYCEMIA Stated Complaint: HIGH BLOOD SUGAR WONT COME DOWN History of Present Illness The patient is a 61 year old male who presents to the Emergency Room with complaints of up and down blood sugar levels that began this morning. He was seen immediately upon arrival to the ED. The patient states that he had a blood sugar recording in the 600s at home this morning. He took his regular dosage of 120 Regular Insulin, which did not lower his level. He then took an additional 75, and then a subsequent 75 dose. The patient denies any sort of fevers, vomiting, abdominal pain, chest pain, difficulty breathing. Source of History: patient Onset: This morning Position: other (BSG) Quality: other (Hypo/Hyper glycemic ) Timing: other ("up and down") Associated Symptoms: No fevers, No chest pain, No SOB Review of Systems See HPI for pertinent positives and negatives. A total of ten systems were reviewed and were otherwise negative. Past Medical & Surgical Medical Problems: (1) Diabetes mellitus (2) History of CHF (congestive heart failure) (3) Sepsis Family History Diabetes mellitus Social History Smoking Status: Never Smoker Drug Use: none Marital Status: single Housing Status: other Occupation Status: retired Current/Historical Medications Scheduled Furosemide (Furosemide), 80 MG PO DAILY Insulin Human Regular (Novolin R), 120 UNITS SC QAM Insulin Isophane (Human) (Novolin N Relion), 120 UNITS SQ HS Lisinopril (Zestril), 20 MG PO BID Metformin Hcl (Glucophage), 1,000 MG PO BID Ranitidine (Zantac), 150 MG PO DAILY Warfarin Sodium (Warfarin Sodium), 20 MG PO DAILY Scheduled PRN Albuterol Hfa (Ventolin Hfa), 2 PUFFS INH Q4H PRN for SOB/Wheezing Oxycodone Hcl (Oxycodone Hcl), 10 MG PO Q8 PRN for Pain Allergies Coded Allergies: Sulfa Antibiotics (Verified Allergy, Intermediate, HIVES, 04/01/16) Physical Exam Vital Signs Date Time Temp Pulse Resp B/P (MAP) Pulse Ox O2 Delivery O2 Flow Rate FiO2 03/30/17 19:11 77 16 128/75 95 Room Air 03/30/17 17:50 76 128/99 99 Room Air 03/30/17 15:34 36.3 77 16 165/72 95 Room Air Physical Exam Physical Exam GENERAL: Patient appears ill. HENT: Exam performed. Head: Normocephalic and atraumatic. Right Ear: External ear normal. No mastoid tenderness. Left Ear: External ear normal. No mastoid tenderness. Mouth/Throat: The oropharynx is clear and moist. No trismus in the jaw. No dental abscesses or uvula swelling. No oropharyngeal exudate or tonsillar abscesses. ____ EYES: Conjunctivae and EOM are normal. Pupils are equal, round, and reactive to light. Right eye exhibits no discharge. Left eye exhibits no discharge. No scleral icterus. ____ NECK: Normal range of motion. Neck supple. No JVD present. No spinous process tenderness present. No carotid bruit present. No rigidity. No tracheal deviation and normal range of motion present. No Brudzinski's sign and no Kernig 's sign noted. ____ CV: Normal rate, regular rhythm, normal heart sounds and intact distal pulses. There is no peripheral edema. Palpable radial pulses bue. ____ PULM/CHEST: Effort normal and breath sounds normal. No respiratory distress. No stridor. He has no wheezes. He has no rales. Chest Wall: He exhibits no tenderness. ____ ABD: The abdomen is soft. Bowel sounds are normal. He has no distension. No mass is present. There is no tenderness. There is no rebound, no guarding, no Malone's sign and no tenderness at McBurney's point. Rovsig negative MUSC/SKEL: Normal range of motion. There is no peripheral edema, tenderness or deformity. LYMPH: No cervical adenopathy. ____ NEURO: He is alert and oriented to person, place, and time. Cerebellar tests wnl. ____ SKIN: He is pale and diaphoretic on exam. PSYCH: He has a normal mood and affect. He behavior is normal. Judgment and thought content normal. ____ Medical Decision & Procedures Laboratory Results 03/30/17 15:50 Red Blood Count 5.61, Mean Corpuscular Volume 85.6, Mean Corpuscular Hemoglobin 30.3, Mean Corpuscular Hemoglobin Concent 35.4, Mean Platelet Volume 11.7, Neutrophils (%) (Auto) 76.7, Lymphocytes (%) (Auto) 12.7, Monocytes (%) (Auto) 9.5, Eosinophils (%) (Auto) 0.5, Basophils (%) (Auto) 0.2, Neutrophils # (Auto) 10.98, Lymphocytes # (Auto) 1.82, Monocytes # (Auto) 1.36, Eosinophils # (Auto) 0.07, Basophils # (Auto) 0.03 03/30/17 15:50 Test 03/30/17 15:50 03/30/17 18:56 03/30/17 19:10 White Blood Count 14.32 K/uL (4.8-10.8) Red Blood Count 5.61 M/uL (4.7-6.1) Hemoglobin 17.0 g/dL (14.0-18.0) Hematocrit 48.0 % (42-52) Mean Corpuscular Volume 85.6 fL (80-100) Mean Corpuscular Hemoglobin 30.3 pg (25-34) Mean Corpuscular Hemoglobin Concent 35.4 g/dl (32-36) Platelet Count 298 K/uL (130-400) Mean Platelet Volume 11.7 fL (7.4-10.4) Neutrophils (%) (Auto) 76.7 % Lymphocytes (%) (Auto) 12.7 % Monocytes (%) (Auto) 9.5 % Eosinophils (%) (Auto) 0.5 % Basophils (%) (Auto) 0.2 % Neutrophils # (Auto) 10.98 K/uL (1.4-6.5) Lymphocytes # (Auto) 1.82 K/uL (1.2-3.4) Monocytes # (Auto) 1.36 K/uL (0.11-0.59) Eosinophils # (Auto) 0.07 K/uL (0-0.5) Basophils # (Auto) 0.03 K/uL (0-0.2) RDW Standard Deviation 41.8 fL (36.4-46.3) RDW Coefficient of Variation 13.3 % (11.5-14.5) Immature Granulocyte % (Auto) 0.4 % Immature Granulocyte # (Auto) 0.06 K/uL (0.00-0.02) Anion Gap 8.0 mmol/L (3-11) Est Creatinine Clear Calc Drug Dose 122.0 ml/min Estimated GFR () 94.4 Estimated GFR (Non- 81.4 BUN/Creatinine Ratio 21.2 (10-20) Calcium Level 10.3 mg/dl (8.5-10.1) Total Bilirubin 0.4 mg/dl (0.2-1) Direct Bilirubin mg/dl (0-0.2) Aspartate Amino Transf (AST/SGOT) 45 U/L (15-37) Alanine Aminotransferase (ALT/SGPT) 44 U/L (12-78) Alkaline Phosphatase 87 U/L (45-117) Total Protein 8.5 gm/dl (6.4-8.2) Albumin 3.8 gm/dl (3.4-5.0) Chemistry Specimen Hemolysis Bedside Glucose 87 mg/dl (70-99) Urine Color YELLOW Urine Appearance CLEAR (CLEAR) Urine pH 5.0 (4.5-7.5) Urine Specific [place] 1.011 (1.000-1.030) Urine Protein NEG (NEG) Urine Glucose (UA) NEG (NEG) Urine Ketones NEG (NEG) Urine Occult Blood NEG (NEG) Urine Nitrite NEG (NEG) Urine Bilirubin NEG (NEG) Urine Urobilinogen NEG (NEG) Urine Leukocyte Esterase NEG (NEG) Laboratory results reviewed by me Medications Administered Medications (Trade) Dose Ordered Sig/Fam Route Start Time Stop Time Status Last Admin Dose Admin Dextrose/Sodium Chloride 1,000 ml @ 100 mls/hr Q10H ONCE IV 03/30/17 16:30 03/31/17 02:29 03/30/17 16:44 100 MLS/HR Potassium Chloride (Klor-Con M10) 40 meq NOW STAT PO 03/30/17 17:39 03/30/17 17:40 DC 03/30/17 17:48 40 MEQ ED Course 1541: The patient was evaluated immediately upon arrival to the ED in room C2A. A complete history and physical exam was performed. The patient's sugar which was 38 upon arrival to the emergency department.He has drank several cups of juice upon arrival to the ED. Repeat blood sugar was 50. He was then given orange juice and a turkey sandwich PO. 1545: Repeat Blood Sugar is 50. Given PO orange juice and [place]. 1608: I checked on the patient. He is alert and oriented, he tolerated PO well. He feels a little better after eating and is less diaphoretic. 1621: After the sandwich the first sandwich was 40. He is still alert, and drinking more juice. 1630: Ordered Dextrose/Sodium Chloride 1000 mL @ 100 mL/hr IV. 1638: After eating the patient remained hypoglycemic. I started him on D5 normal saline, he is still feeling okay and is currently eating a third sandwich. His lab studies show a Potassium level of 2.8, this will be replaced and I will admit the patient to the hospitalist service. 1644: I discussed the case with Dr. Vincent LUCAS Hospitalist. He has been informed. He states the night hospitalist will be informed of the case when he gets here. 1739: Ordered Potassium Chloride 40 meq PO. 1856: Vital signs stable. Patient continues on D5 half-normal saline infusion. Repeat sugar 87. Medical Decision After eating the patient remained hypoglycemic. I started him on D5 normal saline, he is still feeling okay and is currently eating a third sandwich. His lab studies show a Potassium level of 2.8, this will be replaced and I will admit the patient to the hospitalist service. Medication Reconcilliation Current Medication List: was personally reviewed by me Blood Pressure Screening Patient's blood pressure: Elevated blood pressure Referred to hospitalist Consults Time Called: 1643 Consulting Physician: Dr. Vincent GARCIA Hosptialist Returned Call: 1643 I discussed the case with Dr. Vincent LUCAS Hospitalist. He has been informed. He states the night hospitalist will be informed of the case when he gets here. Impression Primary Impression: Hypoglycemia Critical Care I have personally spent greater than 54 minutes of critical care time in the direct management of this patient. This includes bedside care, interpretation of diagnostic studies, and testing, discussion with consultants, patient, and family members, and other required patient management activities. This 54 minutes is in excess of all separately billable procedures. Scribe Attestation The scribe's documentation has been prepared under my direction and personally reviewed by me in its entirety. I confirm that the note above accurately reflects all work, treatment, procedures, and medical decision making performed by me. The chart was completed utilizing [employer] voice recognition software. Grammatical errors, random word insertions, pronoun errors, and incomplete sentences are an occasional consequence of this system due to software limitations, ambient noise, and hardware issues. Any formal questions or concerns about the content, text, or information contained within the body of this dictation should be directly addressed to the physician for clarification. Departure Information Dispostion Being Evaluated By Hospitalist Referrals Joe Nevarez M.D. (PCP) Patient Instructions My [facility] [address]
[2017-03-30 16:05] LABS: BASO % 0.2 %; BASO ABS # 0.03 K/uL (0-0.2); EOS % 0.5 %; EOS ABS # 0.07 K/uL (0-0.5); IG# 0.06 K/uL (0.00-0.02); LYMPH % 12.7 %; LYMPH ABS # 1.82 K/uL (1.2-3.4); MEAN CELL VOLUME 85.6 fL (80-100); MEAN CORPUSCULAR HEMOGLOBIN 30.3 pg (25-34); MEAN CORPUSCULAR HGB CONC 35.4 g/dl (32-36); MEAN PLATELET VOLUME 11.7 fL (7.4-10.4); MONO % 9.5 %; MONO ABS # 1.36 K/uL (0.11-0.59); NEUT % 76.7 %; NEUT ABS # 10.98 K/uL (1.4-6.5); PLATELET COUNT 298 K/uL (130-400); RED CELL DISTRIBUTION WIDTH CV 13.3 % (11.5-14.5); RED CELL DISTRIBUTION WIDTH SD 41.8 fL (36.4-46.3); WHITE BLOOD COUNT 14.32 K/uL (4.8-10.8)
[2017-03-30] MEDS ORDERED: OXYC-164 PO (16:20)
[2017-03-30] MEDS ORDERED: WARF-281 PO (16:20)
[2017-03-30] MEDS ORDERED: LSX80 PO (16:20)
[2017-03-30] MEDS ORDERED: D5W AND 1/2NSS 1,000 ML IV ONE (16:30)
[2017-03-30 16:34] LABS: CALCIUM 10.3 mg/dl (8.5-10.1); POTASSIUM 2.8 mmol/L (3.5-5.1)
[2017-03-30] MEDS ORDERED: POTASSIUM CHLORIDE 10 MEQ / 100ML WTR IV STA (17:39)
[2017-03-30] MEDS ORDERED: POTASSIUM CHLORIDE 10 MEQ TABCR PO STA (17:39)
[2017-03-30] MEDS ORDERED: FURO40TA3 PO (19:19)
[2017-03-30] MEDS ORDERED: VNTHFA/IN INH (19:19)
[2017-03-30] MEDS ORDERED: INSU0.01 SQ (19:19)
[2017-03-30 19:59] LABS: ALBUMIN 3.8 gm/dl (3.4-5.0); TOTAL PROTEIN 8.5 gm/dl (6.4-8.2)
[2017-03-30] MEDS ORDERED: ALUMINUM/MAGNESIUM/SIMETH (MAALOX MAX) 30 ML UDC PO PRN (20:30)
[2017-03-30] MEDS ORDERED: ONDANSETRON INJ 2 MG/ML 2 ML VIAL IV PRN (20:30)
[2017-03-30] MEDS ORDERED: ACETAMINOPHEN 325 MG TAB PO PRN (20:30)
[2017-03-30] MEDS ORDERED: POLYETHYLENE (MIRALAX) 17 GM PACK PO PRN (20:30)
[2017-03-30] MEDS ORDERED: MAGNESIUM HYDROXIDE SUSP 30 ML UDC PO PRN (20:30)
[2017-03-30] MEDS ORDERED: ENOXAPARIN 40 MG/0.4 ML SYR SC SCH (20:30)
[2017-03-30] MEDS: LISINOPRIL 20 MG TAB PO SCH (21:00)
--- NOTE | 2017-03-30 21:53 | History and Physical ---
History & Physical Date & Time of Service: Mar 30, 2017 at 21:32 Chief Complaint: High Blood Sugar Wont Come Down Primary Care Physician: Joe Nevarez M.D. History of Present Illness Source: patient, clinic records, hospital records 61 yo M with history of HTN, CAD, Factor V Leiden History DVT on Coumadin, T2DM on 120 u Novolin R qam, 120u Novolin R qhs presenting to ED with Hypoglycemia. Patient reports he recently started new diet plan involving protein shakes as a meal replacement for the last 22 days from which he has lost 40 - 50 lbs. He reports he checked his sugar at 8:30 today. Glucose was 600. He took 120 u of Novolin. By 9:30-10 it was 600 still and he took another 120 u. After minimal improvement He later took 2- 75 u do on insulin , glucose was around 570 by early this afternoon/. He subsequently called doctor and was told to go into ED as He was feeling sweaty , shaky and clammy. Upon arrival to ED, patient had a Glucose 50. He received 1 L D5 1/2NSS. His BSG eventually trended up to 80 . K 2.8. He denies chest pain, sob, n/v abdominal pain, diarrhea. His PCP is Dr. Nevarez. Past Medical/Surgical History Medical Problems: (1) Diabetes mellitus Status: Chronic (2) History of CHF (congestive heart failure) Status: Chronic Family History Diabetes mellitus Social History Smoking Status: Never Smoker Smokeless Tobacco Use: No Alcohol Use: none Drug Use: none Marital Status: single Occupational Status: retired Immunizations History of Influenza Vaccine: Yes History of Tetanus Vaccine?: Yes Tetanus Immunization Date: Aug 28, 2007 History of Pneumococcal: Yes History of Hepatitis B Vaccine: No Multi-Drug Resistant Organisms History of MDRO: No Allergies Coded Allergies: Sulfa Antibiotics (Verified Allergy, Intermediate, HIVES, 04/01/16) Home Medications Scheduled Furosemide (Furosemide), 80 MG PO DAILY Insulin Human Regular (Novolin R), 120 UNITS SC QAM Insulin Isophane (Human) (Novolin N Relion), 120 UNITS SQ HS Lisinopril (Zestril), 20 MG PO BID Metformin Hcl (Glucophage), 1,000 MG PO BID Ranitidine (Zantac), 150 MG PO DAILY Warfarin Sodium (Warfarin Sodium), 20 MG PO DAILY Scheduled PRN Albuterol Hfa (Ventolin Hfa), 2 PUFFS INH Q4H PRN for SOB/Wheezing Oxycodone Hcl (Oxycodone Hcl), 10 MG PO Q8 PRN for Pain Review of Systems Constitutional: No fever, No chills, No weakness Respiratory: No cough, No sputum, No shortness of breath Cardiovascular: No chest pain, No edema, No palpitations Abdomen: No pain, No nausea, No vomiting Genitourinary - Male: No hematuria Endocrine: + fatigue, + problem reported (diaphoresis) Integumentary: No rash, No itch Physical Exam Vital Signs Date Time Temp Pulse Resp B/P (MAP) Pulse Ox O2 Delivery O2 Flow Rate FiO2 03/30/17 19:11 77 16 128/75 95 Room Air 03/30/17 17:50 76 128/99 99 Room Air 03/30/17 15:34 36.3 77 16 165/72 95 Room Air General Appearance: WD/WN, no apparent distress, + obese Head: normocephalic, atraumatic Eyes: normal inspection, PERRL, EOMI Neck: supple, no adenopathy Respiratory/Chest: lungs clear, normal breath sounds, no respiratory distress Cardiovascular: regular rate, rhythm, no murmur, normal peripheral pulses Abdomen/GI: normal bowel sounds, non tender, soft, no organomegaly Back: normal inspection Skin: normal color, warm/dry, + pertinent finding (Left big toe wound) Diagnostics Laboratory Results Results Past 24 Hours Test 03/30/17 15:46 03/30/17 15:50 03/30/17 16:59 03/30/17 17:53 Range/Units Bedside Glucose 50 63 63 70-99 mg/dl White Blood Count 14.32 4.8-10.8 K/uL Red Blood Count 5.61 4.7-6.1 M/uL Hemoglobin 17.0 14.0-18.0 g/dL Hematocrit 48.0 42-52 % Mean Corpuscular Volume 85.6 80-100 fL Mean Corpuscular Hemoglobin 30.3 25-34 pg Mean Corpuscular Hemoglobin Concent 35.4 32-36 g/dl Platelet Count 298 130-400 K/uL Mean Platelet Volume 11.7 7.4-10.4 fL Neutrophils (%) (Auto) 76.7 % Lymphocytes (%) (Auto) 12.7 % Monocytes (%) (Auto) 9.5 % Eosinophils (%) (Auto) 0.5 % Basophils (%) (Auto) 0.2 % Neutrophils # (Auto) 10.98 1.4-6.5 K/uL Lymphocytes # (Auto) 1.82 1.2-3.4 K/uL Monocytes # (Auto) 1.36 0.11-0.59 K/uL Eosinophils # (Auto) 0.07 0-0.5 K/uL Basophils # (Auto) 0.03 0-0.2 K/uL RDW Standard Deviation 41.8 36.4-46.3 fL RDW Coefficient of Variation 13.3 11.5-14.5 % Immature Granulocyte % (Auto) 0.4 % Immature Granulocyte # (Auto) 0.06 0.00-0.02 K/uL Sodium Level 135 136-145 mmol/L Potassium Level 2.8 3.5-5.1 mmol/L Chloride Level 99 98-107 mmol/L Carbon Dioxide Level 28 21-32 mmol/L Anion Gap 8.0 3-11 mmol/L Blood Urea Nitrogen 21 7-18 mg/dl Creatinine 1.00 0.60-1.40 mg/dl Est Creatinine Clear Calc Drug Dose 122.0 ml/min Estimated GFR () 94.4 Estimated GFR (Non- 81.4 BUN/Creatinine Ratio 21.2 10-20 Random Glucose 44 70-99 mg/dl Calcium Level 10.3 8.5-10.1 mg/dl Total Bilirubin 0.4 0.2-1 mg/dl Direct Bilirubin 0-0.2 mg/dl Aspartate Amino Transf (AST/SGOT) 45 15-37 U/L Alanine Aminotransferase (ALT/SGPT) 44 12-78 U/L Alkaline Phosphatase 87 45-117 U/L Total Protein 8.5 6.4-8.2 gm/dl Albumin 3.8 3.4-5.0 gm/dl Chemistry Specimen Hemolysis Test 03/30/17 18:56 03/30/17 19:10 03/30/17 20:03 03/30/17 20:25 Range/Units Bedside Glucose 87 80 70-99 mg/dl Urine Color YELLOW Urine Appearance CLEAR CLEAR Urine pH 5.0 4.5-7.5 Urine Specific [place] 1.011 1.000-1.030 Urine Protein NEG NEG Urine Glucose (UA) NEG NEG Urine Ketones NEG NEG Urine Occult Blood NEG NEG Urine Nitrite NEG NEG Urine Bilirubin NEG NEG Urine Urobilinogen NEG NEG Urine Leukocyte Esterase NEG NEG Test 03/30/17 20:59 Range/Units Impression Assessment and Plan 61 yo M with history of HTN, CAD, Factor V Leiden History DVT on Coumadin, T2DM on 120 u Novolin R qam, 120u Novolin R qhs presenting to ED with Hypoglycemia Hypoglycemia, Hypokalemia: secondary to excess Insulin dosing - D10 NSS drip at 125 mls/hr with 20 meq K - q1H accu checks - q5H BMP's - Sliding scale Insulin HTN, CAD - BP stable - Continue Lisinopril, Furosemide at home dose GERD - Ranitidine Factor V Leiden, History of DVT - Continue Warfarin 20 mg daily CHRISTIANO - CPAP per protocol OA - on PRN Percocet from PCP DVT Prophylaxis: - Warfarin as above Code status: Full Disposition: Telemetry Attending addendum: I have physically seen this patient, have supervised the medical residents activities, and agree with the H&P unless as otherwise noted. Assessment and Plan: Hypoglycemia secondary to inadvertent regular insulin overdose-- With suggest getting his outpatient glucometer calibrated while in hospital this admission. D10 IV fluids as noted, and D/C if patient becomes hyperglycemic Accu-Cheks every hour 4 hours, and if stable changed to every 2 hours 4 hours , and if stable, changed to routine. Check BMP and magnesium level every 4 hours overnight, until stable. CAD/hypertension/CHF-- Continue lisinopril. Hold furosemide. DVT history/factor V Leiden-- Continue warfarin. Serial PT/INR. 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 Y/N: Yes Risk Level: Moderate Given or contraindicated: Warfarin (Coumadin) Social Service Consult None Apply Note Total Time: Critical Care 30 - 74 minutes Resident Tracking Resident Involvement: Resident Care Provided Care Provided: Adult Hospital Medicine
[2017-03-30 22:09] LABS: INR 1.8 (0.9-1.1); PTT PATIENT 31.8 SECONDS (21.0-31.0)
[2017-03-30 22:17] LABS: CALCIUM 9.2 mg/dl (8.5-10.1); CREATININE 0.98 mg/dl (0.60-1.40)
[2017-03-30 22:18] LABS: POTASSIUM 3.5 mmol/L (3.5-5.1)
[2017-03-30 22:35] VITALS: BP 167/84; PULSE 81; TEMP 36.6; O2SAT 98; BMI 54.2
[2017-03-30 23:59] VITALS: O2SAT 94
[2017-03-31] VITALS (10 sets, daily range): BP systolic 97–150; BP diastolic 58–73; PULSE 70–86; TEMP 36.4–37; O2SAT 92–97; Ht 177.8 cm; Wt 171.2 kg
[2017-03-31 02:25] LABS: CALCIUM 8.7 mg/dl (8.5-10.1); CREATININE 0.92 mg/dl (0.60-1.40); POTASSIUM 3.4 mmol/L (3.5-5.1)
[2017-03-31] MEDS: SODI CHLOR IV SCH ×2 (02:31→10:14)
[2017-03-31] MEDS: [UNRECOGNIZED DRUG - OTHER] IV SCH ×2 (02:31→10:14)
[2017-03-31] MEDS: POTASSIUM CHLORIDE IV SCH ×2 (02:31→10:14)
[2017-03-31] MEDS: OXYCODONE HCL IR 5 MG TAB (IMMEDIATE RELEASE) PO PRN ×2 (02:33→10:40)
[2017-03-31] MEDS ORDERED: POTASSIUM CHLORIDE 20 MEQ TABCR PO STA (05:41)
[2017-03-31 07:52] LABS: BASO % 0.3 %; BASO ABS # 0.02 K/uL (0-0.2); EOS % 2.3 %; EOS ABS # 0.15 K/uL (0-0.5); HEMOGLOBIN 14.6 g/dL (14.0-18.0); IG# 0.02 K/uL (0.00-0.02); LYMPH % 31.6 %; LYMPH ABS # 2.06 K/uL (1.2-3.4); MEAN CELL VOLUME 86.1 fL (80-100); MEAN CORPUSCULAR HEMOGLOBIN 28.6 pg (25-34); MEAN CORPUSCULAR HGB CONC 33.2 g/dl (32-36); MEAN PLATELET VOLUME 12.6 fL (7.4-10.4); MONO % 11.1 %; MONO ABS # 0.72 K/uL (0.11-0.59); NEUT % 54.4 %; NEUT ABS # 3.54 K/uL (1.4-6.5); PLATELET COUNT 206 K/uL (130-400); RED CELL DISTRIBUTION WIDTH CV 13.3 % (11.5-14.5); RED CELL DISTRIBUTION WIDTH SD 42.2 fL (36.4-46.3); WHITE BLOOD COUNT 6.51 K/uL (4.8-10.8)
[2017-03-31] MEDS: RANITIDINE HCL 150 MG TAB PO SCH (07:58)
[2017-03-31] MEDS: LISINOPRIL 20 MG TAB PO SCH ×2 (07:58→20:51)
[2017-03-31] MEDS: INSULIN ASPART 100 UNITS/ML 3 ML PEN SC SCH ×3 (08:00→17:11)
[2017-03-31 08:21] LABS: CALCIUM 8.7 mg/dl (8.5-10.1); CREATININE 0.79 mg/dl (0.60-1.40); POTASSIUM 3.6 mmol/L (3.5-5.1)
[2017-03-31] MEDS ORDERED: FUROSEMIDE 80 MG TAB PO SCH (09:00)
--- NOTE | 2017-03-31 09:09 | Clinical Documentation Query ---
QUERY 1 OF [address] CRUZ, In your clinical opinion is this patient being managed for: ( ) Chronic systolic CHF ( ) Chronic diastolic CHF ( ) Chronic combined systolic and diastolic CHF (x ) Not Agree ( ) Other explanation of clinical findings (Please Explain) ( ) Unable to determine (Please Define) ( ) Need to Discuss The medical record reflects the following clinical findings, treatment, and risk factors. Clinical Indicators:61 yo male presenting with insulin induced hypoglycemia. H/P indicates pt with a history of CHF. Treatment: home meds include lasix (currently on hold) and lisinopril Risk Factors: age, DM, HTN, CHRISTIANO QUERY 2 OF 2 In your clinical opinion is this patient being managed for: ( x ) Morbid obesity with BMI of 54.2 ( ) Not Agree ( ) Other explanation of clinical findings (Please Explain) ( ) Unable to determine (Please Define) ( ) Need to Discuss BMI: A significantly high (>40) or significantly low (<19) BMI will impact the severity of illness and risk of mortality of your patient. However, the physician must document a correlating diagnosis in the medical record. Please clarify and document your clinical opinion in the progress notes and discharge summary. Terms such as "probable", "suspected", "likely", "questionable", "possible", or "still to be ruled out" are acceptable. IF IN AGREEMENT, YOU MUST DOCUMENT ABOVE DIAGNOSTIC STATEMENT IN DAILY PROGRESS NOTES AND DISCHARGE SUMMARY. This document is not part of the patient's record. Thank You, Matilda Glynn, RN [phone]
--- NOTE | 2017-03-31 09:10 | Clinical Documentation Query ---
QUERY 1 OF 2 CLINICAL DOCUMENTATION QUERY , In your clinical opinion is this patient being managed for: ( ) Chronic systolic CHF ( ) Chronic diastolic CHF ( ) Chronic combined systolic and diastolic CHF ( x ) Not Agree ( ) Other explanation of clinical findings (Please Explain) ( ) Unable to determine (Please Define) ( ) Need to Discuss The medical record reflects the following clinical findings, treatment, and risk factors. Clinical Indicators:61 yo male presenting with insulin induced hypoglycemia. H/P indicates pt with a history of CHF. Treatment: home meds include lasix (currently on hold) and lisinopril Risk Factors: age, DM, HTN, CHRISTIANO QUERY 2 OF 2 In your clinical opinion is this patient being managed for: ( x ) Morbid obesity with BMI of 54.2 ( ) Not Agree ( ) Other explanation of clinical findings (Please Explain) ( ) Unable to determine (Please Define) ( ) Need to Discuss BMI: A significantly high (>40) or significantly low (<19) BMI will impact the severity of illness and risk of mortality of your patient. However, the physician must document a correlating diagnosis in the medical record. Please clarify and document your clinical opinion in the progress notes and discharge summary. Terms such as "probable", "suspected", "likely", "questionable", "possible", or "still to be ruled out" are acceptable. IF IN AGREEMENT, YOU MUST DOCUMENT ABOVE DIAGNOSTIC STATEMENT IN DAILY PROGRESS NOTES AND DISCHARGE SUMMARY. This document is not part of the patient's record. Thank You, Matilda Glynn, RN [phone]
[2017-03-31] MEDS ORDERED: INSULIN GLARGINE SOLOSTAR 100 UNITS/ML 3 ML PEN SC ONE (14:00)
--- NOTE | 2017-03-31 15:39 | DIAGNOSTIC IMAGING REPORT ---
(LIVER) ABDOMEN LIMITED CLINICAL HISTORY: abnormal liver enzymes TECHNIQUE: Ultrasound COMPARISON STUDY: None FINDINGS: Fatty infiltration of liver. Normal gallbladder. Common bile duct 3 mm. Pancreas and right kidney are unremarkable. IMPRESSION: Fatty infiltration of the liver. Otherwise negative study. The above report was generated using voice recognition software. It may contain grammatical, syntax or spelling errors. Electronically signed by: Antony Luna M.D. 03/31/2017 3:38 PM Dictated Date/Time: 03/31/2017 3:38 PM
[2017-03-31] MEDS: WARFARIN SOD 10 MG TAB PO SCH (16:04)
--- NOTE | 2017-03-31 18:26 | Family Medicine Progress Note ---
Progress Note Date of Service Mar 31, 2017. Subjective Pt evaluation today including: conversation w/ patient, physical exam, chart review, lab review, review of studies, review of inpatient medication list Pain: Chronic joint pain PO Intake: Patient tolerating and requesting more food Voiding: no voiding problems Patient feels well, currently asymptomatic from hypoglycemic symptoms. Some embarrassment reported by patient as he realizes mistake with diabetes meds. Constitutional: + weight loss, No fever, No chills, No sweats, No weakness, No fatigue, No problem reported Respiratory: No cough, No sputum, No wheezing, No shortness of breath, No dyspnea on exertion, No dyspnea at rest, No hemoptysis, No problem reported Abdomen: No pain, No nausea, No vomiting, No diarrhea, No constipation, No GI bleeding, No problem reported Male : No dysuria, No urinary frequency, No incontinence, No nocturia more than once/night, No slowing stream, No hematuria, No sexual dysfunction, No problem reported Skin: + new/changing skin lesions (left great toe abraison) All Other Systems: Reviewed and Negative Medications Current Inpatient Medications Medications (Trade) Dose Ordered Sig/Fam Route Start Time Stop Time Status Last Admin Dose Admin Acetaminophen (Tylenol Tab) 650 mg Q4H PRN PO 03/30/17 20:30 04/29/17 20:29 Al Hydrox/Mg Hydrox/Simethicone (Maalox Max Susp) 15 ml Q4H PRN PO 03/30/17 20:30 04/29/17 20:29 Magnesium Hydroxide (Milk Of Magnesia Susp) 30 ml Q12H PRN PO 03/30/17 20:30 04/29/17 20:29 Ondansetron HCl (Zofran Inj) 4 mg Q6H PRN IV 03/30/17 20:30 04/29/17 20:29 Polyethylene (Miralax Powder Packet) 17 gm DAILY PRN PO 03/30/17 20:30 04/29/17 20:29 Lisinopril (Zestril Tab) 20 mg BID PO 03/30/17 21:00 04/29/17 20:59 03/31/17 20:51 20 MG Ranitidine HCl (zANTac TAB) 150 mg DAILY PO 03/31/17 09:00 04/30/17 08:59 03/31/17 07:58 150 MG Oxycodone HCl (Roxicodone Immediate Rel Tab) 10 mg Q8 PRN PO 03/30/17 20:30 04/29/17 20:29 03/31/17 10:40 10 MG Warfarin Sodium (Coumadin Tab) 20 mg DAILY@1600 PO 03/31/17 16:00 04/30/17 15:59 03/31/17 16:04 20 MG Insulin Aspart (novoLOG ASPART) SLIDING SCALE G... ACHS SC 03/31/17 07:00 04/30/17 06:59 Future hold 03/31/17 17:11 34 UNITS Insulin Glargine (Lantus Vial) 100 units QAM SC 04/01/17 08:00 05/01/17 08:59 Objective Vital Signs Date Time Temp Pulse Resp B/P (MAP) Pulse Ox O2 Delivery O2 Flow Rate FiO2 03/31/17 22:09 36.7 84 18 109/70 (83) 94 Room Air 03/31/17 20:00 Room Air 03/31/17 19:24 36.6 79 19 150/73 (98) 92 Room Air 03/31/17 16:00 Room Air 03/31/17 15:49 36.5 85 24 114/72 (86) 94 Room Air 03/31/17 12:36 36.7 82 22 105/67 (80) 97 Room Air 03/31/17 12:00 Room Air 03/31/17 08:00 Room Air 03/31/17 07:16 36.5 70 20 114/72 (86) 95 CPAP 03/31/17 04:00 95 Room Air 03/31/17 03:40 36.6 74 18 97/58 (71) 95 03/31/17 02:02 84 96 03/31/17 00:00 37.0 84 24 135/62 (86) 95 Room Air 03/30/17 23:59 94 Room Air Physical Exam General Appearance: WD/WN, no apparent distress, + obese Eyes: normal inspection, PERRL, EOMI, sclerae normal ENT: hearing grossly normal, pharynx normal Neck: supple, no adenopathy Respiratory/Chest: chest non-tender, lungs clear, normal breath sounds, no respiratory distress, no accessory muscle use Cardiovascular: regular rate, rhythm, no edema, no gallop, no murmur Abdomen: normal bowel sounds, non tender, soft, + distended (morbid obesity) Extremities: non-tender, no calf tenderness, + pertinent finding (abrasion on left great toe) Neurologic/Psychiatric: compensation and hris analyst II-XII nml as tested, no motor/sensory deficits, alert, normal mood/affect, oriented x 3 Skin: + pertinent finding (abrasion on left great toe) Laboratory Results Last Resulted 03/31/17 06:44 Red Blood Count 5.11, Mean Corpuscular Volume 86.1, Mean Corpuscular Hemoglobin 28.6, Mean Corpuscular Hemoglobin Concent 33.2, Mean Platelet Volume 12.6, Neutrophils (%) (Auto) 54.4, Lymphocytes (%) (Auto) 31.6, Monocytes (%) (Auto) 11.1, Eosinophils (%) (Auto) 2.3, Basophils (%) (Auto) 0.3, Neutrophils # (Auto ) 3.54, Lymphocytes # (Auto) 2.06, Monocytes # (Auto) 0.72, Eosinophils # (Auto ) 0.15, Basophils # (Auto) 0.02 Last Resulted 03/31/17 06:44 Assessment and Plan 61 yo M with history of HTN, CAD, Factor V Leiden History DVT on Coumadin, T2DM on 120 u Novolin R qam, 120u Novolin N qhs presenting to ED with Hypoglycemia. Patient has been dieting in preparation for possible bariatric surgery and has not required his typical dose of insulin. It was found that the test strips he is currently using are over 5 years . Hypoglycemia, Hypokalemia: secondary to excess Insulin dosing - D10 NSS drip at 125 mls/hr with 20 meq K DCd after stabilization of glucose and potassium level - Accuchecks achs - Sliding scale Insulin - Pt reports recent A1c level was "9 something" - Extension discussion had with patient regarding his diabetes control moving forward in light of this episode and his plans for bariatric operation - Pt open to starting physiologic basal/bolus regimen of lantus and aspart. Will start at 100 mg lantus qam and novolog with CR of 1:2, CF of 1:30. Will adjust prn HTN, CAD - BP stable - Continue Lisinopril home dose; held Furosemide for now Morbid obesity - BMI 54.2; driving force of many of his medical conditions - Has been involved with bariatric services at [place], has lost about 40 pounds in last few months - Encouraged his continued weight loss and discussed that insulin needs will decrease as weight drops GERD - Ranitidine Factor V Leiden, History of DVT - Continue Warfarin 20 mg daily CHRISTIANO - CPAP per protocol; patient admits to noncompliance OA - on PRN Percocet from PCP DVT Prophylaxis: - Warfarin as above Code status: Full Disposition: step down to med/surg Resident Physician Supervision Note: I interviewed and examined the patient. Discussed with Dr. Holland and agree with findings and plan as documented in the note. Any exceptions or clarifications are listed here: None Documented By: Carlos Weaver feeling better discussed insulins vitals noted nad breathing unlabored no pallor or icterus uncontrolled DM2 on insulin w hypoglycemia -home regimen of R 120 / N 120 combined with changing diet causing problems -transition to basal bolus, educated, discussed diet extensively >30mins face to face >50% educating morbid obesity w BMI 54.2 -driving factor for most of his illness but he's working hard on weight loss and succeeding! Resident Tracking Resident Involvement: Resident Care Provided Care Provided: Adult Hospital Medicine
[2017-03-31] MEDS ORDERED: NURSING VERBAL MED ORDER STA (20:33)
[2017-03-31] MEDS ORDERED: INSULIN ASPART 100 UNITS/ML 3 ML PEN SC ONE (20:45)
[2017-04-01] MEDS: OXYCODONE HCL IR 5 MG TAB (IMMEDIATE RELEASE) PO PRN ×3 (00:16→16:15)
[2017-04-01 01:44] VITALS: O2SAT 96
[2017-04-01 07:11] VITALS: BP 145/89; PULSE 74; TEMP 36.6; O2SAT 95
[2017-04-01 07:44] LABS: BASO % 0.9 %; BASO ABS # 0.05 K/uL (0-0.2); EOS % 3.9 %; EOS ABS # 0.22 K/uL (0-0.5); HEMATOCRIT 42.9 % (42-52); HEMOGLOBIN 14.1 g/dL (14.0-18.0); IG# 0.03 K/uL (0.00-0.02); LYMPH % 35.2 %; LYMPH ABS # 1.96 K/uL (1.2-3.4); MEAN CORPUSCULAR HEMOGLOBIN 28.6 pg (25-34); MEAN CORPUSCULAR HGB CONC 32.9 g/dl (32-36); MEAN PLATELET VOLUME 11.8 fL (7.4-10.4); MONO % 10.2 %; MONO ABS # 0.57 K/uL (0.11-0.59); NEUT % 49.3 %; NEUT ABS # 2.74 K/uL (1.4-6.5); PLATELET COUNT 208 K/uL (130-400); RED CELL DISTRIBUTION WIDTH CV 13.4 % (11.5-14.5); RED CELL DISTRIBUTION WIDTH SD 42.8 fL (36.4-46.3); WHITE BLOOD COUNT 5.57 K/uL (4.8-10.8)
[2017-04-01] MEDS ORDERED: INSULIN GLARGINE SC SCH (08:00)
[2017-04-01 08:11] LABS: CALCIUM 8.6 mg/dl (8.5-10.1); CREATININE 1.02 mg/dl (0.60-1.40); POTASSIUM 4.4 mmol/L (3.5-5.1)
[2017-04-01] MEDS: RANITIDINE HCL 150 MG TAB PO SCH (09:03)
[2017-04-01] MEDS: LISINOPRIL 20 MG TAB PO SCH (09:03)
[2017-04-01] MEDS: INSULIN ASPART 100 UNITS/ML 3 ML PEN SC SCH ×3 (09:10→18:38)
[2017-04-01 16:00] VITALS: BP 126/60; PULSE 72; TEMP 36.8; O2SAT 98
[2017-04-01] MEDS: WARFARIN SOD 10 MG TAB PO SCH (16:11)
[2017-04-01] MEDS ORDERED: OXYCODONE HCL IR 5 MG TAB (IMMEDIATE RELEASE) PO STA (16:25)
[2017-04-01] MEDS ORDERED: INSDGI SC (16:50)
[2017-04-01] MEDS ORDERED: NVLGIPEN SC (16:50)
--- NOTE | 2017-04-01 17:39 | Discharge Instructions ---
Discharge Instructions Date of Service Apr 01, 2017. Admission Reason for Admission: Hypoglycemia Discharge Discharge Diagnosis / Problem: uncontrolled diabetes mellitus Discharge Goals Goal(s): Improve disease control, Improve nutritional status, Learn about illness, Therapeutic intervention, Prevent Disease Progression Activity Recommendations Activity Limitations: per Instructions/Follow-up section . Instructions / Follow-Up Instructions / Follow-Up During this visit, you were treated intensively for your Diabetes. We think there are two main topics to focus on as you leave the hospital: 1) Insulin management of diabetes and 2) your weight loss plan with your diabetes. 1) Insulin Management - We recommend you discontinue your old insulins and start fresh with the new insulins from the hospital - There will be 2 new insulins, Lantus and novolog. - Take 120 units of Lantus every morning. Lantus is a "steady state" insulin that has no real peak throughout the day and should stay in your system about 18 -24 hours. - The novolog insulin is a short acting insulin that starts working in about 15 minutes after injection, peaks at about 90 minutes, and stays in your system about 4 hours. You should start by taking 40 units of novolog with every meal at a baseline OR if you're weighing/measuring then use 1 unit for every 2 grams of carbs you eat (and that number can be approximated depending on the food). check your sugars 2 hours after eating each time so that you can "grade your work" -- ideally you'll see a sugar between 100-150 2 hours after you eat; when you see that you'll know that the insulin you took matched the amount of carbs you ate As you continue to check your sugars, you will be more in tune with how this control is doing for you. If you notice your sugars are too high (>200), you might want to consider increasing your baseline of 40 units at mealtimes to 45 or 50 Conversely, if your numbers are too low (<100), consider decreasing your baseline of 40 units to 30 or 35. you'll start to notice a "like begets like" type of pattern with sugars and meals -- for example, if you have a sugar of 100 two hours after taking 40 units of novolog when you eat chicken and broccoli, you'll also see similar needs for insulin with salmon and asparagus. likewise, if it takes 55 units of novolog to get a reasonable sugar two hours after eating a plate of spaghetti, it would likely take similar amounts of insulin for a baked potato or several slices of pizza - As you continue to lose weight, we expect you to notice your sugars becoming lower and lower, which means you will not require as much insulin. This is important, as it means your Lantus dose of 120 should probably be decreased as well as your novolog mealtime doses as described above. Always consult your PCP before making drastic overhauls to your regimen. However, we expect you can make tweaks in the next week or two to your mealtime doses until you find the correct baseline of novolog at mealtimes that works for you. 2) Weight loss and calories in vs. calories out - the basics: a calorie is simply the unit of energy it takes to heat 1ml of water 1 degree ; however, a calorie is the unit of energy we use to measure energy in the human body there are approximately 3500 calories in a pound your body is a savings account of energy - turning "dollars into pennies" -- your weight of approximately 376lbs x 3500 calories = a "savings account" of about 1.3 million calories the goal moving forward is simply to burn off more than you take in. everything you eat "makes a deposit" in the savings account. everything you do from simply living to burning more with exercise will "spend" in the savings account you can calculate your basal energy expenditure simply with what's called the "[place] Equation" -- if you google "basal energy expenditure" you' ll be able to plug in your age/height/weight and see how much you burn in a day "doing nothing" running those numbers on how things are currently, you would burn approximately 2900 calories per day. when you exercise on top of that, you'll burn off more than that base of 2900. for example, at your current weight you'd probably burn about 200 calories per mile (as you lose weight this will go down, simply because it' s less work and therefore less calories to move a smaller human being) so as far as eating - as it relates to the diabetes, obviously avoiding things that are high in carbs/starches/simple sugars is going to help keep your sugar under control and help you become "less and less diabetic," but as far as weight loss goes, the biggest thing is simply taking in less than you burn off. Current Hospital Diet Patient's current hospital diet: Diabetes Type 2 Diet Discharge Diet Recommended Diet: Diabetes Type 2 Diet Pending Studies Studies pending at discharge: no Laboratory Results Hemoglobin A1c Test 03/16/17 10:41 Range/Units Estimated Average Glucose 223 mg/dl Hemoglobin A1c 9.4 H 4.5-5.6 % Medical Emergencies . Who to Call and When: Medical Emergencies: If at any time you feel your situation is an emergency, please call 911 immediately. . Non-Emergent Contact Non-Emergency issues call your: Primary Care Provider . . "Provider Documentation" section prepared by Charity Holland. . VTE Core Measure Inpt VTE Proph given/why not?: Warfarin (Coumadin)
--- NOTE | 2017-04-01 18:30 | Discharge Summary ---
Discharge Summary Date of Service Apr 01, 2017. Discharge Summary Admission Date: Mar 30, 2017 at 20:58 Discharge Date: Apr 01, 2017 Discharge Disposition: Home Principal Diagnosis: Uncontrolled type 2 diabetes Problems/Secondary Diagnoses: HTN, CAD, Morbid obesity, GERD, Factor V Leiden, History of DVT, CHRISTIANO, OA Immunizations: Have You Had Influenza Vaccine: Yes History of Tetanus Vaccine?: Yes Tetanus Immunization Date: Aug 28, 2007 History of Pneumococcal: Yes History of Hepatitis B Vaccine: No Procedures: Cardiac stress test Medication Reconciliation New Medications: Insulin Aspart (Novolog Flexpen) 100 Units/Ml Inj 40 UNITS SC WM for 30 Days, #15 PEN 40 units per meal plus carbohydrate coverage as discussed Insulin Glargine (Lantus) 100 Unit/Ml Inj 120 UNITS SC QAM for 30 Days, #2000 INTERUNIT Continued Medications: Albuterol Hfa (Ventolin Hfa) 200 Puffs/88764 Mcg Aers 2 PUFFS INH Q4H PRN for SOB/Wheezing, #1 INHALER Furosemide (Furosemide) 80 Mg Tab 80 MG PO DAILY Lisinopril (Zestril) 20 Mg Tab 20 MG PO BID Metformin Hcl (Glucophage) 1,000 Mg Tab 1000 MG PO BID, TAB Oxycodone Hcl (Oxycodone Hcl) 10 Mg Tab 10 MG PO Q8 PRN for Pain Ranitidine (Zantac) 150 Mg Tab 150 MG PO DAILY, TAB Warfarin Sodium (Warfarin Sodium) 10 Mg Tab 20 MG PO DAILY Discontinued Medications: Insulin Human Regular (Novolin R) 1 Unit/1 Ml Inj 120 UNITS SC QAM Insulin Isophane (Human) (Novolin N Relion) 100 Unit/Ml Inj 120 UNITS SQ HS Discharge Exam Review of Systems: Respiratory: No shortness of breath Musculoskeletal: + joint pain Physical Exam: General Appearance: no apparent distress, + obese Respiratory/Chest: lungs clear Extremities: + pedal edema Neurologic/Psychiatric: no motor/sensory deficits, alert, normal mood/affect , normal reflexes, oriented x 3 Hospital Course 61 yo M with history of HTN, CAD, Factor V Leiden History DVT on Coumadin, T2DM on 120 u Novolin R qam, 120u Novolin N qhs presenting to ED with Hypoglycemia related to lack of understanding regarding novolin mechanism of action. Patient has been dieting in preparation for possible bariatric surgery and has not required his typical dose of insulin. It was found that the test strips he is currently using are over 5 years and that recorded glucose had large discrepancy with hospital glucose measurement. Hypoglycemia, Hypokalemia: secondary to excess Insulin dosing - Pt reports recent A1c level was "9 something" - Extensive discussion had with patient regarding his diabetes control moving forward in light of this episode and his plans for bariatric operation - Pt open to starting physiologic basal/bolus regimen of lantus and aspart. Will start at 120 mg lantus qam and novolog with CR of 1:2 or soft carb counting or baseline 40 units per meal (he expresses good understanding of this method) HTN, CAD - BP stable - Continue Lisinopril home dose; resume Furosemide Morbid obesity - BMI 54.2; driving force of many of his medical conditions - Has been involved with bariatric services at [place], has lost about 40 pounds in last few months - Encouraged his continued weight loss and discussed that insulin needs will decrease as weight drops GERD - Ranitidine Factor V Leiden, History of DVT - Continue Warfarin 20 mg daily CHRISTIANO - CPAP per protocol; patient admits to noncompliance OA - on PRN Percocet from PCP LIVER ULTRASOUND - elevated enzymes as outpatient; requested by PCP per patient - Showed fatty infiltrate Code status: Full Resident Physician Supervision Note: I interviewed and examined the patient. Discussed with Dr. Holland and agree with findings and plan as documented in the note. Any exceptions or clarifications are listed here: None Documented By: Carlos Meg feeling good extensive discussion expresses good understanding of lantus / log and more physiologic regimen, as well as how this puts him in better control, as well as how it provides a measure of safety sicne with close management and close monitoring he'll be seeing when he likely needs to reduce insulins as he loses weight and can then have ongoing discussion and guidance with PCP bethel noted nad breathing unlabored hypoglycemia - from about 400 units of N and bad test strips. resolved uncontrolled DM2, morbid obesity - extensive discussions on basal bolus, soft carb counting, and weight loss stable for home, close f/u Total Time Spent: Greater than 30 minutes This includes examination of the patient, discharge planning, medication reconciliation, and communication with other providers. Discharge Instructions Please refer to the electronic Patient Visit Report (Discharge Instructions) for additional information. Additional Copies To Joe Nevarez M.D. Resident Tracking Resident Involvement: Resident Care Provided Care Provided: Adult [facility] Medicine
[2017-04-01 19:40] VITALS: BP 126/60; PULSE 72; TEMP 36.8; O2SAT 98
== END 2017-04-01 21:35 | disposition home or self-care (01) | DRG 918 ==
LOC: C.EDB 15:27 → C.2T 20:58 → ENRESERV 21:34 → C.4E 03-31 20:56
PROVIDERS: ADMIT Hospitalist; ATTEND Family Medicine
DX: T38.3X1A Poisoning by insulin and oral hypoglycemic [antidiabetic] drugs, accidental (unintentional), initial encounter (principal); D68.51 Activated protein C resistance; Z68.43 Body mass index [BMI] 50.0-59.9, adult; E11.649 Type 2 diabetes mellitus with hypoglycemia without coma; I50.9 Heart failure, unspecified; I11.0 Hypertensive heart disease with heart failure; Z79.4 Long term (current) use of insulin; Z79.01 Long term (current) use of anticoagulants; Z88.2 Allergy status to sulfonamides; Z86.718 Personal history of other venous thrombosis and embolism; Z83.3 Family history of diabetes mellitus; E87.6 Hypokalemia; I25.10 Atherosclerotic heart disease of native coronary artery without angina pectoris; G47.33 Obstructive sleep apnea (adult) (pediatric); M19.90 Unspecified osteoarthritis, unspecified site; E66.01 Morbid (severe) obesity due to excess calories; Y92.019 Unspecified place in single-family (private) house as the place of occurrence of the external cause; Z91.19 Patient's noncompliance with other medical treatment and regimen

== ENCOUNTER → 2017-04-20 | Outpatient (CLI) | payer OTHER ==
[~2017-04-20] MED LIST changes: -CMD10 PO; -ERGO500037 PO; +INSDGI SC; +LSX80 PO; -MOME6000 NAE; +NVLGIPEN SC; -OXYC-106 PO; +OXYC-164 PO; +VNTHFA/IN INH; +WARF-281 PO
[2017-04-20 17:51] LABS: ALBUMIN 3.3 gm/dl (3.4-5.0); ALKALINE PHOSPHATASE 84 U/L (45-117); ALT/SGPT 23 U/L (12-78); AST/SGOT 17 U/L (15-37); BLOOD UREA NITROGEN 13 mg/dl (7-18); CALCIUM 9.1 mg/dl (8.5-10.1); CARBON DIOXIDE 25 mmol/L (21-32); CREATININE 0.95 mg/dl (0.60-1.40); GLUCOSE 249 mg/dl (70-99); POTASSIUM 4.2 mmol/L (3.5-5.1); SODIUM 134 mmol/L (136-145)
[2017-04-20 17:56] LABS: TOTAL PROTEIN 7.6 gm/dl (6.4-8.2)
[2017-04-20 18:37] LABS: HEP C IGG 13 YRS+OLDER_RFLX NEG (NEG)
[2017-04-24 14:40] LABS: ANA SCREEN TC 249X NEGATIVE (NEGATIVE); EBV EARLY ANTIGEN AB < 9.00 U/ML; HEPATITIS A IGM TC 51813E NON-REACTIVE (NON-REACTIVE); HEPATITIS B CORE IGM TC51854R NON-REACTIVE (NON-REACTIVE)
== END | disposition home or self-care (01) ==
LOC: C.LABBFT 15:00
PROVIDERS: ATTEND Physician Assistant Medical
DX: R74.8 Abnormal levels of other serum enzymes (principal); E11.49 Type 2 diabetes mellitus with other diabetic neurological complication; I82.409 Acute embolism and thrombosis of unspecified deep veins of unspecified lower extremity

== ENCOUNTER 2021-02-13 14:20 | Inpatient (IN) ==
[2021-02-13 15:49] LABS: Basophils # (auto) 0.07 K/uL (0-0.2); Basophils % (auto) 0.5 %; Eosinophils # (auto) 0.24 K/uL (0-0.5); Eosinophils % (auto) 1.8 %; Hematocrit (blood only) 36.1 % (42-52); Hemoglobin 11.9 g/dL (14.0-18.0); Immature Granulocytes # (auto) 0.26 K/uL (0.00-0.02); Immature Granulocytes % (auto) 1.9 %; Lymphocytes # (auto) 1.77 K/uL (1.2-3.4); Mean Corpuscular Volume 87.8 fL (80-100); Mean Platelet Volume 11.3 fL (7.4-10.4); Monocytes % (auto) 10.3 %; Neutrophils # (auto) 9.85 K/uL (1.4-6.5); Neutrophils % (auto) 72.5 %; Platelet Count 489 K/uL (130-400); RDW Coefficient of Variation 14.9 % (11.5-14.5); RDW Standard Deviation 47.4 fL (36.4-46.3); Red Blood Count 4.11 M/uL (4.7-6.1); White Blood Count 13.59 K/uL (4.8-10.8)
[2021-02-13 16:13] LABS: Partial Thromboplastin Ratio 4.2; Prothrombin Time > 90.0 Seconds (9.0-12.0)
[2021-02-13 16:18] LABS: Albumin Globulin Ratio 0.6 (0.9-2); Albumin Level 2.7 gm/dl (3.4-5.0); BUN Creatinine Ratio 21.8 (10-20); Calcium 9.3 mg/dl (8.5-10.1); Creatinine Clr Calc Pharmacy 111.8 ml/min; Est GFR (African American) 97.7 ml/min; Est GFR (Non-African American) 84.3 ml/min; Globulin 4.6 gm/dl (2.5-4.0); Potassium 4.4 mmol/L (3.5-5.1); Total Protein 7.3 gm/dl (6.4-8.2)
--- NOTE | 2021-02-13 16:49 | CT Scan Report ---
CT abd pelvis wo con CLINICAL HISTORY: hematuria. L back pain TECHNIQUE: Helical axial images of the abdomen and pelvis were obtained. Automated dose lowering tech niques and/or adjustment according to patient size were utilized for this exam. This exam was perfor med without intravenous contrast. COMPARISON: None available at the time of this dictation. FINDINGS: Lower chest: No acute abnormality Liver: Unremarkable. No focal lesions are seen. Gallbladder and biliary tree: No calcified gallstones. Normal caliber wall. No intra- or extrahepatic biliary ductal dilation. Pancreas: Unremarkable, no focal lesions. Spleen: Unremarkable. Adrenals: Unremarkable. Kidneys and ureters: Perinephric stranding is noted bilaterally. No hydronephrosis or nephrolithiasis . Bladder: Limited evaluation due to underdistention. Reproductive organs: Unremarkable. Bowel: Unremarkable. Lymph nodes Retroperitoneal: Unremarkable. Mesenteric: Unremarkable. Pelvic: Unremarkable. Peritoneum: Normal Vessels: Unremarkable. Abdominal wall: Unremarkable. Bones: Degenerative changes in the visualized spine. Old healed rib fractures are seen on the right. IMPRESSION: No acute abnormalities. Particular, no evidence of obstructive nephrolithiasis on the left. ACT 112: Negative or not required by law. Electronically signed by: Newton Hayes M.D. 02/13/2021 4:47 PM
[2021-02-13 16:50] LABS: Partial Thromboplastin Time 109.8 Seconds (21.0-31.0)
[2021-02-13 16:51] LABS: Beta-Hydroxybutyrate 64.27 mg/dl (0.2-2.81); INR > 10.7 (0.9-1.1)
[2021-02-13] MEDS ORDERED: SODIUM CHLORIDE 0.9% 1000ML 1,000 ML IV SCH (16:55)
[2021-02-13] MEDS ORDERED: NovoLIN-R INSULIN PER UNIT CHARGE IV STA (16:55)
[2021-02-13] MEDS ORDERED: PHYTONADIONE 10 MG in SODIUM CHLORIDE 0.9% 50 ML IV ONE (16:57)
[2021-02-13] MEDS ORDERED: cefTRIAXone SODIUM 2,000 MG/70 ML BAG IV STA (17:00)
--- NOTE | 2021-02-13 17:31 | History & Physical Report ---
Date of Service February 13, 2021 Assessment & Plan (1) Supratherapeutic INR: Plan: Waylon is a 65-year-old male with a past medical history of type 2 diabetes mellitus, mixed restrictive and obstructive lung disease, diabetic neuropathy, bradycardia, hypertension, hyperglobulinemia, GERD, factor V Leiden on chronic anticoagulation, CAD who presented to the emergency department with hematuria and supratherapeutic INR. Supratherapeutic INR, history of factor V Leiden INR on admission greater than 10.7 Patient has missed last few INR checks On warfarin 20 mg daily for factor V Leiden Patient with a charted history of DVT, patient denies any history of blood c lot/PE although somewhat inconsistent historian Vitamin K IV 10 mg given in ER Hold warfarin INR checks daily Patient with hematuria, and left knee contusion/hematoma for approximately 10 days Blood pressure stable Patient reports longstanding history of bradycardia at baseline, no lightheadedness/dizziness recently Hemoglobin 11.9, continue to trend - CT-A/P:No acute abnormalities. Particular, no evidence of obstructive nephrolithiasis on the left. - No sign of retroperitoneal bleed on above CT (2) Factor V Leiden mutation: Plan: See above (3) Hematuria: Plan: No prior history of hematuria Suspect 2/2 supratherapeutic INR managed as above Patient does endorses some light burning of his urine prior to onset of symptoms,?inciting UTI w/ INR elevation. UA collected, UC pending Patient did receive empiric Rocephin in ER, however immediately developed hives due to this. Rocephin discontinued, he will continue to follow clinically and UA/UC results (4) DM (diabetes mellitus), type 2, uncontrolled w/neurologic complication: Plan: Type 2 diabetes mellitus, poorly controlled last A1c greater than 1 year ago greater than 10 Admitting glucose 485, received 10 units IV insulin, recheck 313. Additional 5 units IV insulin dose pending, with recheck after. Patient with pseudohyponatremia, sodium 138 corrects to 137 by González formula On insulin regular sliding scale and Metformin at home Weight-based glargine 13 units twice daily, SSI goal [id number], correction factor 30, ratio 10 Glucose checks AC/at bedtime BMP daily A1c pending, last in system poorly controlled greater than 1 year ago (5) Coronary artery disease: Plan: Patient denies history of cardiac disease/heart problems/MD Continue atorvastatin 20 mg daily Continue Lasix 80 mg p.o. every morning Continue lisinopril 10 mg every morning Patient not on beta-mynor due to history of bradycardia (6) Bradycardia: Plan: Patient reports chronic at baseline, no symptoms from this recentlycontinue to follow on telemetry (7) Mixed restrictive and obstructive lung disease: Plan: Denies history of inhalers, no recent follow-up for this No wheezing on admission Follow clinically at this time (8) CHRISTIANO (obstructive sleep apnea): Plan: CPAP nightly (9) Hematoma of left knee region: Plan: Left knee with contusion,? Underlying hematoma, is not firm Patient reports appeared spontaneously approximately 10 days ago, has remained relatively unchanged since then Able to flex and extend at the knee Neurovascularly intact on exam Continue serial exams, if worsening consider CT for hematoma evaluation (10) Pseudohyponatremia: (11) Hives: Plan: - after rocephin admin. No airway/MM involvement - Rocephin stopped - Benadryl 25mg IV + Famotidine given - Continue famotidine 20mg IV BID - Benadryl 25mg q6h PRN for hives Plan: DVT PPx: SCDs, pharmacoppx contraindicated 2/2 bleed and INR>10 Diet: DM CODE STATUS: Full Med w/ Tele History of Present Illness Primary Care Provider: Joe Nevarez MD Waylon is a 65-year-old male with a past medical history of type 2 diabetes mellitus, mixed restrictive and obstructive lung disease, diabetic neuropathy, bradycardia, hypertension, hyperglobulinemia, GERD, factor V Leiden on chronic anticoagulation, CAD who presented to the emergency department with hematuria and supratherapeutic INR. Waylon reports 'I'm bleeding doc I got blood in m urine urine and I don't know why." Blood in urine started ~10 days ago. Tiny bit of burning with urination 'not severe just a tiny bit.' L knee is painful, does not recall any trauma. +bruising for about 10 days. Has normal senation in fingers and toes. Denies weakness. Endorses some urinary incontinence, feels like he has little warning and 'can't shut it off and dribble.' Denies having to 'push' to urinate. No FHx of prostate problems, had a prostate exam by PCP and thinks it was normal. Colonoscopy ~7 years ago, normal. Has missed recent INR checks. Has trouble making appointments, reports it is difficult for him to leave his home to get the doctors appointments. Denies vomiting, melena, para blood per rectum, epistaxis, chest pain, chest pressure, shortness of breath, difficulty alvaro athing. FVL on anticoagulation. Denies history of blood clots in legs or lungs. Does not recall why he was checked for FVL. Denies strokes and heart attacks. Family Doc is Dr. Nevarez Medical History: Reviewed. DM. Denies other medical problems. Medications: Reviewed. Allergy to Sulfa. Reports tolerates penicillin fine, no hx of reactions. Surgical History: Reviewed. Hx appendectomy, tonsillectomy. Allergies: Reviewed. Social History: Lives with his sister Peace. Noone sick at home. COVID unvaccinated, would like to get. Uses snuff sporadically x20 years 1 tin per 2 days. Denies alcohol use, no use in several years. Code Status: Surrogate would be his brother Leandro. Full Code. Allergies Allergy/AdvReac Type Severity Reaction Status Date / Time ceftriaxone Allergy Severe Hives Verified 02/13/21 18:12 Sulfa (Sulfonamide Allergy Intermediate HIVES-ITCHY Verified 02/13/21 15:31 Antibiotics) RASH Home Medications Medication Instructions Recorded Confirmed Type cholecalciferol (vitamin D3) 25 1,000 units PO WK 02/20/19 02/13/21 History mcg (1,000 unit) capsule atorvastatin 20 mg tablet 20 mg PO QAM #90 tab 11/12/19 02/13/21 Rx insulin regular human 100 unit/mL 1 sliding scale dose SUBCUT 11/26/19 02/13/21 Rx injection solution (Humulin R USEASDIRECTD #10 ml Regular U-100 Insulin) insulin syringe-needle U-100 1 mL #300 ea 12/02/19 03/11/20 Rx 31 gauge x 5/16" (BD Insulin Syringe Ultra-Fine) furosemide 80 mg tablet 80 mg PO QAM #30 tab 04/06/20 02/13/21 Rx lisinopril 10 mg tablet 10 mg PO QAM #90 tab 05/11/20 02/13/21 Rx metformin 1,000 mg tablet 1,000 mg PO BID #180 tab 05/11/20 02/13/21 Rx warfarin 10 mg tablet 20 mg PO QAM #180 tab 05/11/20 02/13/21 Rx lancets 30 gauge (OneTouch Delica #25 ea 01/18/21 Rx Lancets) oxycodone 10 mg tablet 10 mg PO TID PRN #90 tab 02/02/21 02/13/21 Rx nystatin 100,000 unit/gram topical 1 applic TOP BID #30 gm 02/08/21 02/13/21 Rx cream blood sugar diagnostic #10 ea 02/10/21 Rx Past Med/Surg History Medical History (Updated 02/13/21 @ 18:48 by Mau Ibarra MD) Coronary artery disease DM (diabetes mellitus), type 2, uncontrolled w/neurologic complication Factor V Leiden mutation on warfarin daily Fatty liver ? pt denies Gastroesophageal reflux disease Generalized OA Hypercholesterolemia Hyperglobulinemia Hypertension Morbid obesity with BMI of 50.0-59.9, adult On anticoagulant therapy warfarin daily CHRISTIANO (obstructive sleep apnea) cpap Vitamin D deficiency Surgical History History of colonoscopy History of tooth extraction History of wisdom tooth extraction S/P appendectomy S/P tonsillectomy Family History Father Coronary heart disease Myocardial infarction Mother COPD (chronic obstructive pulmonary disease) Stroke Family history of diabetes mellitus Diabetes Brother Prostate cancer Coronary heart disease Grandfather (Paternal) Family history of diabetes mellitus Grandmother (Paternal) Family history of diabetes mellitus Other No family history of adverse response to anesthesia Denies family history of Ovarian cancer Breast cancer Colorectal cancer Social History Smoking Status: Never smoker Second Hand Exposure: Yes (parents smoked); Hx Alcohol Use: No (quit 10+yrs ago) Hx Substance Use: No Preferred Language: Divehi Communication Ability: Effective Visual Impairment: Limited Hearing Ability: Normal Testing Lead Required: No Beliefs That Will Affect Care: None marital status: Life Partner Current Living Situation: Family and Significant Other Current Living Situation Comment: Lives with girlfriend and grandchildren current occupational status: retired and disabled current occupation: [employer] Feels Safe at Home: Yes Childhood Exposure to Second-Hand Smoke: No caffeine: Yes Dental Care, Regularly: No Seatbelt Use: always Assistive Devices: CPAP and Glasses Review of Systems Review of Systems: Constitutional: Denies fever, chills Eyes: Denies double vision, vision change, eye pain ENT: Denies ear pain, sore throat, sinus pain Cardiovascular: Denies Chest pain, chest pressure, palpitations, extremity swelling Respiratory: Denies shortness of breath, cough, sputum production, difficulty breathing Gastrointestinal: Denies abdominal pain, nausea, vomiting, constipation, diarrhea. Decreased appetite. Genitourinary: See HPI Musculoskeletal: Denies weakness, muscle aches/pain. Endorses L knee pain. Integumentary: Itchy raised wheels on posterior neck, L jew, bilateral lower back since rocephin started. No airway compromise/swelling/angioedema/uvular deflection. Neurological: Denies headache, numbness, tingling, focal weakness Physical Exam Physical Exam: General: A&Ox3. NAD. Cooperative. Scattered hives on posterior neck, left jew, left arm, bilateral low back just appearing per patient. HEENT: Atraumatic, normocephalic. PERLAA> Visual acuity and hearing grossly intact. Pulm: CTAB A&P. -wheezes, -rales, -rhonchi. Symmetrical chest rise. No increased work of breathing. No respiratory distress. Cardiac: RRR, -mrg. Radial pulses intact and symmetrical. Abdominal: Nontender, nondistended, soft. BS present. Extremities: Bilateral pedal edema. Left anterior/lateral knee with contusion, tender palpation but no firmness. Active and passive knee flexion/extension intact. PT pulses intact bilaterally, sensation to soft touch intact in feet bilaterally. Right leg atraumatic. Upper extremities atraumatic. Results & Data Results & Data ([facility]) Vital Signs (Past 12 Hours) Vital Signs Temp Pulse Pulse Resp BP BP Pulse Ox 02/13/21 17:11 39 L 18 138/58 L 02/13/21 16:22 42 L 16 139/55 L 99 02/13/21 14:26 36 C L 44 L 22 123/74 100 PG Care Time/CCT Total # of Minutes Spent Total Time Spent with Patient: Total time spent is greater than 50% in coordination of care (as documented) at patient's floor/unit and/or counseling patient: Coding Level of Care Code 88483 Initial Inpt Care Lvl 3 Diagnoses Supratherapeutic INR R79.1 Factor V Leiden mutation D68.51 DM (diabetes mellitus), type 2, uncontrolled w/neurologic complication E11.49; E11.65 Coronary artery disease I25.10 Bradycardia R00.1 Mixed restrictive and obstructive lung disease J44.9; J98.4 CHRISTIANO (obstructive sleep apnea) G47.33 Hematoma of left knee region S80.02XA Hematuria R31.9 Pseudohyponatremia R79.89 Hives L50.9
[2021-02-13] MEDS ORDERED: diphenhydrAMINE 50 MG/ML VIAL IV STA (17:36)
[2021-02-13] MEDS ORDERED: FAMOTIDINE 20 MG in SYRINGE 3 ML IV STA (17:47)
[2021-02-13] MEDS ORDERED: FAMOTIDINE 20MG/5ML IV PUSH IV ONE (17:59)
--- NOTE | 2021-02-13 18:04 | Emergency Department Note ---
Impression & Plan Supratherapeutic INR, Acute blood loss anemia, Acute hyperglycemia, Insulin dependent diabetes mellitus, Junctional bradycardia, Acute hyponatremia ED Provider Note CHIEF COMPLAINT: urinary bleeding, L thigh bruise on Coumadin, taste off x months HISTORY OF PRESENT ILLNESS: This 65-year-old male patient presents to the emergency department with complaints of urinary bleeding x 2 days, left thigh bruise x several days that he believes began as lower back pain. The patient is anticoagulated for history of DVTs and factor V Leiden The patient is also very concerned because his taste has been for several months. He states he can taste a thing. Nothing that he used to enjoy tastes good. He denies any new medications. He denies any headaches, weight loss, vomiting or diarrhea. He denies having a fever or any recent trauma. REVIEW OF SYSTEMS: A review of systems was performed with positives and pertinent negatives listed in the history of present illness. 10 systems were reviewed and are otherwise negative. ALLERGIES: see below MEDICATIONS: see below PMH: see below SOCIAL HISTORY: see below DDx: Therapeutic INR, UTI, kidney stone, bladder mass, renal obstruction, trauma, retroperitoneal hematoma PHYSICAL EXAM: Vital signs reviewed. General: Chronically ill-appearing 65 yo male, in no significant distress. HEENT: No scleral icterus, PERRLA, neck supple. Atraumatic. Cardiovascular: Regular rate and rhythm, no extra sounds. Pulmonary: Clear to auscultation bilaterally, normal work of breathing. Abdomen: Soft, obese, nontender, nondistended, positive bowel sounds. Musculoskeletal: Hematoma noted to the left anterior thigh just above the knee. It is soft and distal pulses are palpated. Dependent peripheral edema at the ankles bilaterally : Normal external male genitals, atraumatic, urine is cloudy but not grossly bloody. Neurologic: Patient awake alert and oriented x 3, speech is clear Skin: Warm, dry, no rash EMERGENCY DEPARTMENT COURSE/MDM: This patient was evaluated and appeared to be in no significant distress. Patient is awake and pleasant interactive. IV access was obtained and laboratory work was drawn. Patient was placed on a residential monitor. He was noted to be in a bradycardic rhythm. Blood pressure remained stable. Patient's laboratory work reveals an INR greater than 10. Hemoglobin is 11.8 which is a drop of over two points from previous. He is hyponatremic to 128. Urinalysis cloudy but not grossly bloody at this time. Patient was given 10 mg of IV vitamin K. He did receive IV normal saline solution for hydration. Patient was covered with 2 g of IV ceftriaxone given the cloudy urine. Urine culture was negative yesterday however did grow yeast. Yeast specific urine culture was ordered today. Patient was also medicated with IV regular insulin 10 units for marked hyperglycemia. Case was discussed with the hospitalist service for further management. Patient was made aware of the plan and agrees. MONITORING: An order for cardiac monitoring was placed and the patient is noted to be in a bradycardia at 42 beats per minute. RADIOLOGY: See below EKG: Likely junctional rhythm at 43 bpm, wide-complex QRS, RBBB repolarization abnormality. No PVC, no PAC. Possible previous anterior lateral infarct. QTC 449. When compared to previous 03/31/17, junctional rhythm has replaced a sinus rhythm. DISPOSITION: admit I have personally spent 35 minutes of critical care time in the direct management of this patient. This was a life/limb threatening event. This 35 minutes is in excess of all separately billable procedures. Past Med/Surg History Medical History (Updated 02/18/21 @ 07:35 by Shelby Rolon MD) DM (diabetes mellitus), type 2, uncontrolled w/neurologic complication Factor V Leiden mutation on warfarin daily Fatty liver ? pt denies Gastroesophageal reflux disease Generalized OA Hypercholesterolemia Hyperglobulinemia Hypertension Morbid obesity with BMI of 50.0-59.9, adult On anticoagulant therapy warfarin daily CHRISTIANO (obstructive sleep apnea) cpap Vitamin D deficiency Surgical History (Updated 02/17/21 @ 09:25 by Anuel Gallardo MD) History of colonoscopy History of tooth extraction History of wisdom tooth extraction S/P tonsillectomy Status post appendectomy Family History Father Coronary heart disease Myocardial infarction Mother COPD (chronic obstructive pulmonary disease) Stroke Family history of diabetes mellitus Diabetes Brother Prostate cancer Coronary heart disease Grandfather (Paternal) Family history of diabetes mellitus Grandmother (Paternal) Family history of diabetes mellitus Other No family history of adverse response to anesthesia Denies family history of Ovarian cancer Breast cancer Colorectal cancer Social History Smoking Status: Never smoker Second Hand Exposure: Yes (parents smoked); Hx Alcohol Use: No (quit 10+yrs ago) Hx Substance Use: No Preferred Language: Slovak Communication Ability: Effective Visual Impairment: Limited Hearing Ability: Normal Home Health Clinician Required: No Beliefs That Will Affect Care: None marital status: Life Partner Current Living Situation: Family and Significant Other Current Living Situation Comment: Lives with sister current occupational status: retired and disabled current occupation: [employer] Feels Safe at Home: Yes Childhood Exposure to Second-Hand Smoke: No caffeine: Yes Dental Care, Regularly: No Seatbelt Use: always Assistive Devices: Walker Allergies Allergies Allergy/AdvReac Type Severity Reaction Status Date / Time ceftriaxone Allergy Severe Hives Verified 02/13/21 18:12 Sulfa (Sulfonamide Allergy Intermediate HIVES-ITCHY Verified 02/13/21 15:31 Antibiotics) RASH Home Meds Home Medications Medication Instructions Recorded Confirmed cholecalciferol (vitamin D3) 25 1,000 units PO WK 02/20/19 02/13/21 mcg (1,000 unit) capsule Previous Rx's Medication Instructions Recorded atorvastatin 20 mg tablet 20 mg PO QAM #90 tab 11/12/19 insulin regular human 100 unit/mL 1 sliding scale dose SUBCUT 11/26/19 injection solution (Humulin R USEASDIRECTD #10 ml Regular U-100 Insulin) insulin syringe-needle U-100 1 mL #300 ea 12/02/19 31 gauge x 5/16" (BD Insulin Syringe Ultra-Fine) furosemide 80 mg tablet 80 mg PO QAM #30 tab 04/06/20 lisinopril 10 mg tablet 10 mg PO QAM #90 tab 05/11/20 metformin 1,000 mg tablet 1,000 mg PO BID #180 tab 05/11/20 warfarin 10 mg tablet 20 mg PO QAM #180 tab 05/11/20 lancets 30 gauge (OneTouch Delica #25 ea 01/18/21 Lancets) oxycodone 10 mg tablet 10 mg PO TID PRN #90 tab 02/02/21 nystatin 100,000 unit/gram topical 1 applic TOP BID #30 gm 02/08/21 cream blood sugar diagnostic #10 ea 02/10/21 Results & Data (ED) Vital Signs Vital Signs - 24 hr 02/13/21 14:26 02/13/21 16:22 02/13/21 17:11 Temperature 36 C L Temperature Source Temporal Artery Scan Pulse Rate 44 L Pulse Rate [Apical] 42 L 39 L Pulse Rhythm Regular Pulse Strength Normal Respiratory Rate 22 16 18 Respiratory Effort / Characteristics Non-Labored Spontaneous Non-Labored Respiratory Depth Normal Respiratory Pattern Regular Blood Pressure 123/74 Blood Pressure [Left Arm] 139/55 L 138/58 L Blood Pressure Mean 90 Blood Pressure Mean [Left Arm] 83 84 Blood Pressure Position Sitting Pulse Oximetry 100 99 Oxygen Delivery Method Room Air Sepsis Recent Fever Within 48 Hours No Sepsis New/Unexplained Change in Mental Status No Sepsis Action Taken by Nursing No Action Required Home Medications Current Medication List: was personally reviewed by me Laboratory Data Attestation: I reviewed the patient's lab results. Result diagrams: 02/17/21 07:16 02/17/21 07:16 Lab Results 02/13/21 02/13/21 02/13/21 Range/Units 15:35 15:35 15:35 WBC 13.59 H (4.8-10.8) K/uL RBC 4.11 L (4.7-6.1) M/uL Hgb 11.9 L (14.0-18.0) g/dL Hct 36.1 L (42-52) % MCV 87.8 (80-100) fL MCH 29.0 (25-34) pg MCHC 33.0 (32-36) g/dL RDW Std Deviation 47.4 H (36.4-46.3) fL RDW Coeff of [place] 14.9 H (11.5-14.5) % Plt Count 489 H (130-400) K/uL MPV 11.3 H (7.4-10.4) fL Immature Gran % (Auto) 1.9 % Neut % (Auto) 72.5 % Lymph % (Auto) 13.0 % [place] % (Auto) 10.3 % Eos % (Auto) 1.8 % Baso % (Auto) 0.5 % Neut # (Auto) 9.85 H (1.4-6.5) K/uL Lymph # (Auto) 1.77 (1.2-3.4) K/uL [place] # (Auto) 1.40 H (0.11-0.59) K/uL Eos # (Auto) 0.24 (0-0.5) K/uL Baso # (Auto) 0.07 (0-0.2) K/uL Immature Gran # (Auto) 0.26 H (0.00-0.02) K/uL PT > 90.0 H (9.0-12.0) Seconds INR > 10.7 H* (0.9-1.1) APTT 109.8 H* (21.0-31.0) Seconds PTT Ratio 4.2 Sodium 128 L (136-145) mmol/L Potassium 4.4 (3.5-5.1) mmol/L Chloride 95 L (98-107) mmol/L Carbon Dioxide 19 L (21-32) mmol/L Anion Gap 14.0 H (3-11) BUN 21 H (7-18) mg/dl Creatinine 0.95 (0.6-1.4) mg/dl Est Cr Clr Drug Dosing 111.8 ml/min Est GFR ( Amer) 97.7 ml/min Est GFR (Non-Af Amer) 84.3 ml/min BUN/Creatinine Ratio 21.8 H (10-20) Glucose 485 H* (70-99) mg/dl Calcium 9.3 (8.5-10.1) mg/dl Total Bilirubin 1.0 (0.2-1) mg/dl AST 17 (15-37) U/L ALT 16 (12-78) Alkaline Phosphatase 183 H D (45-117) U/L Total Protein 7.3 (6.4-8.2) gm/dl Albumin 2.7 L (3.4-5.0) gm/dl Globulin 4.6 H (2.5-4.0) gm/dl Albumin/Globulin Ratio 0.6 L (0.9-2) Beta-Hydroxybutyric Acd 64.27 H (0.2-2.81) mg/dl Urine Color Urine Appearance (Clear) Urine pH (4.5-7.5) Ur Specific [place] (1.000-1.030) Urine Protein (Negative) Urine Glucose (UA) (Negative) Urine Ketones (Negative) Urine Blood (Negative) Urine Nitrite (Negative) Urine Bilirubin (Negative) Urine Urobilinogen (Negative) Ur Leukocyte Esterase (Negative) Urine WBC (Auto) (0-5) /hpf Urine RBC (Auto) (0-4) /hpf U Hyaline Cast (Auto) (0-5) /lpf U Epithel Cells (Auto) (0-5) /lpf Urine Bacteria (Auto) (Negative) Urine Yeast (None Prsent) SARS-CoV-2, RNA, NAAT (NEGATIVE) Blood Type Antibody Screen 02/13/21 02/13/21 02/13/21 Range/Units 15:35 15:38 18:03 WBC (4.8-10.8) K/uL RBC (4.7-6.1) M/uL Hgb (14.0-18.0) g/dL Hct (42-52) % MCV (80-100) fL MCH (25-34) pg MCHC (32-36) g/dL RDW Std Deviation (36.4-46.3) fL RDW Coeff of [place] (11.5-14.5) % Plt Count (130-400) K/uL MPV (7.4-10.4) fL Immature Gran % (Auto) % Neut % (Auto) % Lymph % (Auto) % [place] % (Auto) % Eos % (Auto) % Baso % (Auto) % Neut # (Auto) (1.4-6.5) K/uL Lymph # (Auto) (1.2-3.4) K/uL [place] # (Auto) (0.11-0.59) K/uL Eos # (Auto) (0-0.5) K/uL Baso # (Auto) (0-0.2) K/uL Immature Gran # (Auto) (0.00-0.02) K/uL PT (9.0-12.0) Seconds INR (0.9-1.1) APTT (21.0-31.0) Seconds PTT Ratio Sodium (136-145) mmol/L Potassium (3.5-5.1) mmol/L Chloride (98-107) mmol/L Carbon Dioxide (21-32) mmol/L Anion Gap (3-11) BUN (7-18) mg/dl Creatinine (0.6-1.4) mg/dl Est Cr Clr Drug Dosing ml/min Est GFR ( Amer) ml/min Est GFR (Non-Af Amer) ml/min BUN/Creatinine Ratio (10-20) Glucose (70-99) mg/dl Calcium (8.5-10.1) mg/dl Total Bilirubin (0.2-1) mg/dl AST (15-37) U/L ALT (12-78) Alkaline Phosphatase (45-117) U/L Total Protein (6.4-8.2) gm/dl Albumin (3.4-5.0) gm/dl Globulin (2.5-4.0) gm/dl Albumin/Globulin Ratio (0.9-2) Beta-Hydroxybutyric Acd (0.2-2.81) mg/dl Urine Color Yellow Urine Appearance Cloudy A (Clear) Urine pH 5.0 (4.5-7.5) Ur Specific [place] 1.034 H (1.000-1.030) Urine Protein Negative (Negative) Urine Glucose (UA) 3+ H (Negative) Urine Ketones 3+ H (Negative) Urine Blood 1+ H (Negative) Urine Nitrite Negative (Negative) Urine Bilirubin Negative (Negative) Urine Urobilinogen Negative (Negative) Ur Leukocyte Esterase 1+ H (Negative) Urine WBC (Auto) >30 H (0-5) /hpf Urine RBC (Auto) 0-4 (0-4) /hpf U Hyaline Cast (Auto) 1-5 (0-5) /lpf U Epithel Cells (Auto) >30 H (0-5) /lpf Urine Bacteria (Auto) Negative (Negative) Urine Yeast Budding A (None Prsent) SARS-CoV-2, RNA, NAAT NEGATIVE (NEGATIVE) Blood Type A Positive Antibody Screen NEGATIVE Administered Medications Atorvastatin Calcium (Atorvastatin 20 Mg Tab) 20 mg PO [facility] Stop: 03/19/21 08:59 Last Admin: 02/17/21 08:33 Dose: 20 mg Documented by: [id number] Ergocalciferol (Ergocalciferol 50,000 Units 1250 Mcg Cap) 50,000 units PO Q7D@0900 [facility] Stop: 05/11/21 13:59 Last Admin: 02/16/21 15:50 Dose: 50,000 units Documented by: [id number] Fluconazole (Fluconazole 100 Mg Tab) 200 mg PO [facility] Stop: 03/03/21 09:29 Last Admin: 02/17/21 10:09 Dose: 200 mg Documented by: [id number] Furosemide (Furosemide 80 Mg Tab) 80 mg PO [facility] Stop: 03/16/21 08:59 Last Admin: 02/17/21 08:33 Dose: 80 mg Documented by: [id number] Admin: 02/16/21 15:50 Dose: 80 mg Documented by: [id number] Admin: 02/15/21 08:31 Dose: 80 mg Documented by: [id number] Admin: 02/14/21 08:20 Dose: 80 mg Documented by: [id number] Insulin Aspart (Insulin Aspart Per Unit) 0 units SC ACHS [facility] Stop: 03/15/21 20:59 Last Admin: 02/17/21 20:42 Dose: 1 units Documented by: [id number] Cosigned by: [id number] Admin: 02/17/21 17:11 Dose: 9 units Documented by: [id number] Cosigned by: [id number] Admin: 02/17/21 11:50 Dose: 22 units Documented by: [id number] Cosigned by: [id number] Admin: 02/17/21 08:31 Dose: 15 units Documented by: [id number] Cosigned by: [id number] Admin: 02/16/21 21:23 Dose: 3 units Documented by: [id number] Cosigned by: [id number] Admin: 02/16/21 16:50 Dose: 16 units Documented by: [id number] Cosigned by: [id number] Admin: 02/16/21 14:44 Dose: 5 units Documented by: [id number] Cosigned by: [id number] Admin: 02/16/21 09:00 Dose: 6 units Documented by: [id number] Cosigned by: [id number] Admin: 02/15/21 20:59 Dose: 7 units Documented by: [id number] Cosigned by: [id number] Admin: 02/15/21 17:40 Dose: 18 units Documented by: [id number] Cosigned by: [id number] Admin: 02/15/21 12:41 Dose: 16 units Documented by: [id number] Cosigned by: [id number] Admin: 02/15/21 08:29 Dose: Not Given Documented by: [id number] Admin: 02/14/21 21:01 Dose: 3 units Documented by: [id number] Cosigned by: [id number] Admin: 02/14/21 17:22 Dose: 22 units Documented by: [id number] Cosigned by: [id number] Admin: 02/14/21 12:54 Dose: 14 units Documented by: [id number] Cosigned by: [id number] Admin: 02/14/21 08:26 Dose: 5 units Documented by: [id number] Cosigned by: [id number] Admin: 02/13/21 22:06 Dose: 4 units Documented by: [id number] Cosigned by: [id number] Insulin Glargine (Insulin Glargine Solostar 100 Units/Ml 3 Ml Pen) 0 units SC BID [facility]; Protocol Stop: 03/18/21 20:59 Last Admin: 02/17/21 20:41 Dose: 22 units Documented by: [id number] Cosigned by: [id number] Lisinopril (Lisinopril 10 Mg Tab) 10 mg PO QAM [facility] Stop: 03/16/21 08:59 Last Admin: 02/17/21 08:33 Dose: 10 mg Documented by: [id number] Admin: 02/16/21 15:50 Dose: 10 mg Documented by: [id number] Admin: 02/15/21 08:31 Dose: 10 mg Documented by: [id number] Admin: 02/14/21 08:20 Dose: 10 mg Documented by: [id number] Metoprolol Tartrate (Metoprolol Tartrate 50 Mg Tab) 50 mg PO BID [facility] Stop: 03/18/21 20:59 Last Admin: 02/17/21 20:39 Dose: 50 mg Documented by: [id number] Admin: 02/17/21 08:33 Dose: 50 mg Documented by: [id number] Admin: 02/16/21 20:10 Dose: 50 mg Documented by: [id number] Miconazole Nitrate (Miconazole Nitrate Powder 43 Gm) 1 appln EXT PRN PRN PRN Reason: Affected Skin Folds Stop: 03/16/21 13:21 Last Admin: 02/17/21 08:34 Dose: 1 appln Documented by: [id number] Admin: 02/14/21 14:54 Dose: 1 appln Documented by: [id number] Nystatin (Nystatin Powder 15gm Btl) 1 appln EXT TID [facility] Stop: 03/16/21 13:59 Last Admin: 02/17/21 20:39 Dose: 1 appln Documented by: [id number] Admin: 02/17/21 12:58 Dose: 1 appln Documented by: [id number] Admin: 02/17/21 08:30 Dose: 1 appln Documented by: [id number] Admin: 02/16/21 21:25 Dose: 1 appln Documented by: [id number] Admin: 02/16/21 14:35 Dose: 1 appln Documented by: [id number] Admin: 02/16/21 09:00 Dose: 1 appln Documented by: [id number] Admin: 02/15/21 21:00 Dose: 1 appln Documented by: [id number] Admin: 02/15/21 13:14 Dose: 1 appln Documented by: [id number] Admin: 02/15/21 08:32 Dose: 1 appln Documented by: [id number] Admin: 02/14/21 21:01 Dose: 1 appln Documented by: [id number] Admin: 02/14/21 14:53 Dose: 1 appln Documented by: [id number] Oxycodone HCl (Oxycodone Hcl Ir 5 Mg Tab (Immediate Release)) 10 mg PO Q8H PRN PRN Reason: Pain Stop: 03/02/21 19:58 Last Admin: 02/17/21 20:47 Dose: 10 mg Documented by: [id number] Admin: 02/16/21 20:09 Dose: 10 mg Documented by: [id number] Rivaroxaban (Rivaroxaban 20 Mg Tab) 20 mg PO DAILY [facility] Stop: 03/19/21 16:59 Last Admin: 02/17/21 17:11 Dose: 20 mg Documented by: [id number] Sennosides (Senna 8.6 Mg Tab) 8.6 mg PO BID [facility] Stop: 03/19/21 09:29 Last Admin: 02/17/21 20:38 Dose: 8.6 mg Documented by: [id number] Admin: 02/17/21 11:36 Dose: 8.6 mg Documented by: [id number] Discontinued Medications Acetaminophen/Codeine Phosphate (Acetaminophen W/Codeine #3 1 Tab) 1 - 2 tab PO Q4H PRN PRN Reason: Moderate-Severe Pain Stop: 03/18/21 13:56 Last Admin: 02/16/21 14:44 Dose: 2 tab Documented by: [id number] Bacitracin (Bacitracin Oint 0.9 Gm Pkt) Confirm Administered Dose 1 appln .ROUTE .STK-MED ONE Stop: 02/16/21 10:48 Last Admin: 02/16/21 13:50 Dose: 1 appln Documented by: [id number] Cefazolin Sodium (Cefazolin 250 Mg/Ml 1 Gm Vial) Confirm Administered Dose 3,000 mg .ROUTE .STK-MED ONE Stop: 02/16/21 11:42 Last Admin: 02/16/21 13:50 Dose: 3,000 mg Documented by: [id number] Diphenhydramine HCl (Diphenhydramine 50 Mg/Ml Vial) 25 mg IV NOW STA Stop: 02/13/21 17:37 Last Admin: 02/13/21 17:49 Dose: 25 mg Documented by: [id number] Famotidine (Famotidine 20mg/5ml Iv Push) Confirm Administered Dose 20 mg IV .[facility] ONE Stop: 02/13/21 18:00 Last Admin: 02/13/21 18:00 Dose: 20 mg Documented by: [id number] Fentanyl Citrate (Fentanyl Citrate 100 Mcg/2 Ml Vial) Confirm Administered Dose 100 mcg .ROUTE .[facility] ONE Stop: 02/16/21 11:42 Last Admin: 02/16/21 13:50 Dose: 100 mcg Documented by: [id number] Fentanyl Citrate (Fentanyl Citrate 100 Mcg/2 Ml Vial) Confirm Administered Dose 100 mcg .ROUTE .[facility] ONE Stop: 02/16/21 12:45 Last Increment: 02/16/21 13:51 Dose: 50 mcg Documented by: [id number] Fluconazole (Fluconazole 100 Mg Tab) 200 mg PO NOW ONE Stop: 02/14/21 13:36 Last Admin: 02/14/21 14:53 Dose: 200 mg Documented by: [id number] Fluconazole (Fluconazole 100 Mg Tab) [facility] Stop: 02/22/21 08:59 Last Admin: 02/16/21 13:02 Dose: Not Given Documented by: [id number] Admin: 02/15/21 08:31 Dose: 100 mg Documented by: [id number] Sodium Chloride (Nss 1000ml) 1,000 mls @ 999 mls/hr IV .Q1H1M [facility] Stop: 02/13/21 17:55 Last Infusion: 02/13/21 18:22 Dose: 0 mls/hr Documented by: [id number] Admin: 02/13/21 17:20 Dose: 999 mls/hr Documented by: [id number] Phytonadione 10 mg/ Sodium (Chloride) 51 mls @ 102 mls/hr IV ONE ONE Stop: 02/13/21 17:26 Last Infusion: 02/13/21 18:53 Dose: 0 mls/hr Documented by: [id number] Admin: 02/13/21 18:17 Dose: 102 mls/hr Documented by: [id number] Ceftriaxone Sodium (Rocephin) 2,000 mg in 70 mls @ 140 mls/hr IV NOW STA Stop: 02/13/21 17:29 Last Infusion: 02/13/21 17:43 Dose: 0 mls/hr Documented by: [id number] Admin: 02/13/21 17:19 Dose: 140 mls/hr Documented by: [id number] Famotidine 20 mg/ Syringe 5 mls @ 2.5 mls/min IV BID [facility] Stop: 03/15/21 20:59 Last Admin: 02/16/21 08:59 Dose: 2.5 mls/min Documented by: [id number] Admin: 02/15/21 20:58 Dose: 2.5 mls/min Documented by: [id number] Admin: 02/15/21 08:39 Dose: 2.5 mls/min Documented by: [id number] Admin: 02/14/21 21:01 Dose: 2.5 mls/min Documented by: [id number] Admin: 02/14/21 08:26 Dose: 2.5 mls/min Documented by: [id number] Admin: 02/13/21 20:41 Dose: 2.5 mls/min Documented by: [id number] Famotidine 20 mg/ Syringe 5 mls @ 2.5 mls/min IV NOW STA Stop: 02/13/21 17:48 Last Admin: 02/13/21 18:08 Dose: Not Given Documented by: [id number] Lactated Ringer's (Lr) 1,000 mls @ 15 mls/hr IV .Q24H [facility] Stop: 02/18/21 03:39 Last Admin: 02/17/21 08:34 Dose: Not Given Documented by: [id number] Infusion: 02/16/21 21:02 Dose: 0 mls/hr Documented by: [id number] Admin: 02/16/21 14:05 Dose: Not Given Documented by: [id number] Admin: 02/15/21 11:20 Dose: 15 mls/hr Documented by: [id number] Clindamycin Phosphate (Cleocin) 600 mg in 54 mls @ 100 mls/hr IV PREOP [facility] Stop: 02/17/21 05:59 Last Admin: 02/16/21 13:47 Dose: Not Given Documented by: [id number] Insulin Human Regular 5 units/ (Syringe) 5 mls @ 30 mls/min IV NOW ONE Stop: 02/17/21 11:46 Last Admin: 02/17/21 11:50 Dose: 30 mls/min Documented by: [id number] Cosigned by: [id number] Insulin Aspart (Insulin Aspart Per Unit) 0 units SC 0000,0400 [facility] Stop: 02/14/21 04:01 Last Admin: 02/14/21 04:36 Dose: 2 units Documented by: [id number] Cosigned by: [id number] Admin: 02/14/21 01:35 Dose: 4 units Documented by: [id number] Cosigned by: [id number] Insulin Glargine (Insulin Glargine Solostar 100 Units/Ml 3 Ml Pen) 35 units SC ONE ONE Stop: 02/13/21 19:16 Last Admin: 02/13/21 19:58 Dose: 35 units Documented by: [id number] Cosigned by: [id number] Insulin Glargine (Insulin Glargine Solostar 100 Units/Ml 3 Ml Pen) 0 units SC [facility]; Protocol Stop: 03/16/21 20:59 Last Admin: 02/14/21 21:02 Dose: 35 units Documented by: [id number] Cosigned by: [id number] Insulin Glargine (Insulin Glargine Solostar 100 Units/Ml 3 Ml Pen) 17 units SC BID [facility] Stop: 03/16/21 20:59 Last Admin: 02/15/21 12:42 Dose: 17 units Documented by: [id number] Cosigned by: [id number] Insulin Glargine (Insulin Glargine Solostar 100 Units/Ml 3 Ml Pen) 0 units SC BID [facility]; Protocol Stop: 03/16/21 20:59 Last Admin: 02/15/21 20:58 Dose: 17 units Documented by: [id number] Cosigned by: [id number] Insulin Glargine (Insulin Glargine Solostar 100 Units/Ml 3 Ml Pen) 17 units SC BID [facility] Stop: 03/16/21 20:59 Last Admin: 02/16/21 08:59 Dose: 17 units Documented by: [id number] Cosigned by: [id number] Insulin Glargine (Insulin Glargine Solostar 100 Units/Ml 3 Ml Pen) 22 units SC BID [facility] Stop: 03/18/21 20:59 Last Admin: 02/17/21 08:31 Dose: 22 units Documented by: [id number] Cosigned by: [id number] Admin: 02/16/21 21:25 Dose: 22 units Documented by: [id number] Cosigned by: [id number] Insulin Human Regular (Novolin-R Insulin Per Unit Charge) 10 units IV NOW STA Stop: 02/13/21 16:56 Last Admin: 02/13/21 17:19 Dose: 10 units Documented by: [id number] Cosigned by: [id number] Insulin Human Regular (Novolin-R Insulin Per Unit Charge) 5 units IV ONE ONE Stop: 02/13/21 18:46 Last Admin: 02/13/21 18:54 Dose: 5 units Documented by: [id number] Cosigned by: [id number] Lidocaine HCl (Lidocaine 1% Local 20 Ml Vial) Confirm Administered Dose 40 ml .ROUTE .STK-MED ONE Stop: 02/16/21 10:47 Last Admin: 02/16/21 13:48 Dose: 40 ml Documented by: [id number] Metoprolol Tartrate (Metoprolol Tartrate 1 Mg/Ml Vial) Confirm Administered Dose 5 mg IV .STK-MED ONE Stop: 02/16/21 13:49 Last Admin: 02/16/21 14:12 Dose: Not Given Documented by: [id number] Midazolam HCl (Midazolam Hcl 5 Mg/Ml 1 Ml Vial) Confirm Administered Dose 5 mg .ROUTE .STK-MED ONE Stop: 02/16/21 11:42 Last Admin: 02/16/21 13:51 Dose: 5 mg Documented by: [id number] Midazolam HCl (Midazolam Hcl 5 Mg/Ml 1 Ml Vial) Confirm Administered Dose 5 mg .ROUTE .STK-MED ONE Stop: 02/16/21 13:12 Last Increment: 02/16/21 13:51 Dose: 1 mg Documented by: [id number] Oxycodone HCl (Oxycodone Hcl Ir 5 Mg Tab (Immediate Release)) 10 mg PO TID PRN PRN Reason: pain Stop: 02/27/21 18:24 Last Admin: 02/15/21 21:29 Dose: 10 mg Documented by: [id number] Admin: 02/15/21 08:30 Dose: 10 mg Documented by: [id number] Admin: 02/14/21 09:14 Dose: 10 mg Documented by: [id number] Admin: 02/13/21 20:41 Dose: 10 mg Documented by: [id number] Sterile Water (Water, Sterile For Inj 10 Ml Vial) Confirm Administered Dose 10 ml .ROUTE .STK-MED ONE Stop: 02/16/21 10:48 Last Admin: 02/16/21 13:50 Dose: 10 ml Documented by: [id number] Vancomycin HCl (Vancomycin Hcl 1000mg/20ml Vial) Confirm Administered Dose 50 mg .ROUTE .STK-MED ONE Stop: 02/16/21 10:47 Last Admin: 02/16/21 13:50 Dose: 50 mg Documented by: [id number] Imaging Data Radiologist's Impression: Abdomen/Pelvis CT 02/13/21 14:39 CT abd pelvis wo con CLINICAL HISTORY: hematuria. L back pain TECHNIQUE: Helical axial images of the abdomen and pelvis were obtained. Automated dose lowering techniques and/or adjustment according to patient size were utilized for this exam. This exam was performed without intravenous contrast. COMPARISON: None available at the time of this dictation. FINDINGS: Lower chest: No acute abnormality Liver: Unremarkable. No focal lesions are seen. Gallbladder and biliary tree: No calcified gallstones. Normal caliber wall. No intra- or extrahepatic biliary ductal dilation. Pancreas: Unremarkable, no focal lesions. Spleen: Unremarkable. Adrenals: Unremarkable. Kidneys and ureters: Perinephric stranding is noted bilaterally. No hydronephrosis or nephrolithiasis. Bladder: Limited evaluation due to underdistention. Reproductive organs: Unremarkable. Bowel: Unremarkable. Lymph nodes Retroperitoneal: Unremarkable. Mesenteric: Unremarkable. Pelvic: Unremarkable. Peritoneum: Normal Vessels: Unremarkable. Abdominal wall: Unremarkable. Bones: Degenerative changes in the visualized spine. Old healed rib fractures are seen on the right. IMPRESSION: No acute abnormalities. Particular, no evidence of obstructive nephrolithiasis on the left. ACT 112: Negative or not required by law. Electronically signed by: Newton Hayes M.D. 02/13/2021 4:47 PM Blood Pressure Blood Pressure Findings: Elevated blood pressure Blood Pressure Disposition: further management by hospitalist Discharge Plan Visit Data Chief Complaint: Urinary Symptoms Stated Complaint: HEMATUIRA, URINARY SX, WEAKNESS, FATIGUE Discharge Problem: Supratherapeutic INR, Acute blood loss anemia, Acute hyperglycemia, Insulin dependent diabetes mellitus, Junctional bradycardia, Acute hyponatremia Patient Disposition: Admitted As Inpatient Discharge Instructions Interventions: ED Discharge Assessment Last Done: 02/13/21 22:57
[2021-02-13 18:18] LABS: Appearance Urine Cloudy (Clear); Bacteria Urine Automated Negative (Negative); Bilirubin Urine Negative (Negative); Blood Urine 1+ (Negative); Color Urine Yellow; Epithelial Cell Urine Auto >30 /lpf (0-5); Glucose Urine UA 3+ (Negative); Ketones Urine 3+ (Negative); Leukocyte Esterase Urine 1+ (Negative); Nitrite Urine Negative (Negative); Protein Urine Negative (Negative); Specific Gravity Urine 1.034 (1.000-1.030); Urobilinogen Urine Negative (Negative); WBC Urine Automated >30 /hpf (0-5)
[2021-02-13 18:43] LABS: RBC Urine Automated 0-4 /hpf (0-4)
[2021-02-13] MEDS ORDERED: NovoLIN-R INSULIN PER UNIT CHARGE IV ONE (18:45)
[2021-02-13] MEDS ORDERED: PHARMACY GLYCEMIC MGMT CONSULT PRN (18:46)
[2021-02-13] MEDS ORDERED: INSULIN GLARGINE SOLOSTAR 100 UNITS/ML 3 ML PEN SC ONE (19:15)
[2021-02-13] MEDS: oxyCODONE HCL IR 5 MG TAB (IMMEDIATE RELEASE) PO PRN (20:41)
[2021-02-13] MEDS: FAMOTIDINE 20 MG in SYRINGE 3 ML IV SCH (20:41)
[2021-02-13] MEDS ORDERED: diphenhydrAMINE 50 MG/ML VIAL IV PRN (20:59)
[2021-02-13] MEDS ORDERED: GLUCOSE 10 TABS/TUBE PO PRN (20:59)
[2021-02-13] MEDS ORDERED: ACETAMINOPHEN 325 MG TAB PO PRN (20:59)
[2021-02-13] MEDS ORDERED: CARBOHYDRATES FOR HYPOGLYCEMIA PO PRN (20:59)
[2021-02-13] MEDS ORDERED: GLUCAGON FOR INJ 1 MG VIAL SQ PRN (20:59)
[2021-02-13] MEDS ORDERED: DEXTROSE 50% 50 ML SYRINGE IV PRN (20:59)
[2021-02-13] MEDS ORDERED: GLUCOSE 40% GEL 15 GM TUBE PO PRN (20:59)
[2021-02-13] MEDS ORDERED: INSULIN ASPART PER UNIT SC SCH (21:00)
[2021-02-13] MEDS ORDERED: INSULIN ASPART 100 UNITS/ML 3 ML PEN SC SCH (21:00)
[2021-02-13] MEDS ORDERED: INSULIN GLARGINE SOLOSTAR 100 UNITS/ML 3 ML PEN SC SCH (21:00)
[2021-02-13] MEDS: INSULIN ASPART PER UNIT SC SCH (22:06)
[2021-02-14 01:30] LABS: Hematocrit (blood only) 33.4 % (42-52); Hemoglobin 11.2 g/dL (14.0-18.0)
[2021-02-14] MEDS: INSULIN ASPART PER UNIT SC SCH ×6 (01:35→21:01)
[2021-02-14 06:27] LABS: Basophils # (auto) 0.05 K/uL (0-0.2); Basophils % (auto) 0.5 %; Eosinophils # (auto) 0.57 K/uL (0-0.5); Hematocrit (blood only) 30.9 % (42-52); Hemoglobin 10.4 g/dL (14.0-18.0); Immature Granulocytes # (auto) 0.18 K/uL (0.00-0.02); Immature Granulocytes % (auto) 1.9 %; Lymphocytes # (auto) 1.53 K/uL (1.2-3.4); Mean Corpuscular Hemoglobin 28.8 pg (25-34); Mean Corpuscular Hgb Conc 33.7 g/dL (32-36); Mean Corpuscular Volume 85.6 fL (80-100); Monocytes # (auto) 1.12 K/uL (0.11-0.59); Monocytes % (auto) 11.7 %; Neutrophils # (auto) 6.11 K/uL (1.4-6.5); Neutrophils % (auto) 63.9 %; Platelet Count 373 K/uL (130-400); RDW Coefficient of Variation 14.8 % (11.5-14.5); RDW Standard Deviation 45.8 fL (36.4-46.3); Red Blood Count 3.61 M/uL (4.7-6.1); White Blood Count 9.56 K/uL (4.8-10.8)
[2021-02-14 06:51] LABS: INR 1.7 (0.9-1.1); Prothrombin Time 16.3 Seconds (9.0-12.0)
[2021-02-14 06:56] LABS: Albumin Level 2.2 gm/dl (3.4-5.0); BUN Creatinine Ratio 32.1 (10-20); Calcium 8.1 mg/dl (8.5-10.1); Creatinine Clr Calc Pharmacy 190.1 ml/min; Est GFR (African American) 126.7 ml/min; Est GFR (Non-African American) 109.3 ml/min; Potassium 3.5 mmol/L (3.5-5.1)
[2021-02-14 07:00] LABS: Albumin Globulin Ratio 0.6 (0.9-2); Globulin 3.9 gm/dl (2.5-4.0); Total Protein 6.1 gm/dl (6.4-8.2)
[2021-02-14] MEDS: lisinopril 10 MG TAB PO SCH (08:20)
[2021-02-14] MEDS: FUROSEMIDE 80 MG TAB PO SCH (08:20)
[2021-02-14] MEDS: FAMOTIDINE 20 MG in SYRINGE 3 ML IV SCH ×2 (08:26→21:01)
[2021-02-14] MEDS: oxyCODONE HCL IR 5 MG TAB (IMMEDIATE RELEASE) PO PRN (09:14)
[2021-02-14 10:02] LABS: Partial Thromboplastin Ratio 1.4
--- NOTE | 2021-02-14 13:22 | Hospitalist Progress Note ---
Date of Service February 14, 2021 Assessment & Plan (1) Bradycardia: Plan: 2nd to #2 below. He is not on AV estelle agents. TSH wnl. Lyme negative. Consulted Dr Munoz from [facility]. Appreciate his consult. Echo ordered. Pacer pads placed. Fortunately he is hemodynamically stable and relatively asymptomatic from this. Some of the fatigue could be from this but he also has other issues present. [id number] - NPO after midnight tonight for potential pacemaker placement tomorrow. (2) Complete heart block: Plan: Cards consult. Echo. NPO for possible pacemaker tomorrow by EP. see #1 above. (3) Supratherapeutic INR: Plan: INR >10 at admission. Gross hematuria and ?spontaneous L thigh hematoma in the setting of the high INR. s/p vit K IV x 1 at ER presentation. INR today <2. Pt admits to poor compliance with INR checks. Recent loss of appetite and antibiotic usage likely contributed to the high INR. Repeat INR am. Coumadin remains on hold. (4) Factor V Leiden mutation: Plan: Noted. At high risk of VTE. Following pacemaker placement will bridge w/ IV heparin. Timing of such - check with cardiology. (5) Hematuria: Plan: 2nd to supratherapeutic INR. can't rule out UTI. can't rule out intrinsic bladder pathology contributing. CT abd/pelvis without specific etiology seen. If gross hematuria persists - urology consult. (6) DM (diabetes mellitus), type 2, uncontrolled w/neurologic complication: Plan: Pharmacy glycemic recs appreciated. Cont basal-bolus insulin. HbA1C pending. All previous A1Cs from 2+ years ago >9%. Would benefit from DM education while here. (7) Coronary artery disease: Plan: Patient adamantly denies any heart disease. I cannot find any prior heart cath confirming CAD. Last stress test - 2016. Remains on statin, SERENE, lasix. Pt denies chest pain. 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 (9) CHRISTIANO (obstructive sleep apnea): Plan: CPAP HS (10) Hematoma of left knee region: Plan: check x-rays of L knee - r/o fractures, r/o large effusion. much of the hematoma seems outside of the joint. apply cold packs to decrease swelling. coumadin on hold. (11) Pseudohyponatremia: Plan: resolved. was 2nd to severe hyperglycemia. (12) Hives: Plan: after rocephin admin in the ER he apparently had hives. these are now resolved. rocephin added to allergy list. (13) Kelly rash of groin: Plan: severe. nystatin powder TID. diflucan 200mg x 1 now. then diflucan 100mg daily starting tomorrow. may need 7-10 days of Rx. certainly diflucan interacts w/ coumadin, but latter is on hold. benefits outweigh risks. (14) Morbid obesity with BMI of 50.0-59.9, adult: Plan: BMI 45 (15) UTI (urinary tract infection): Plan: budding yeast on urine microscopy diflucan for yeast rash will cover the urine as well follow the culture Plan: updated pt's sister by phone care d/w Dr Munoz from cardiology Admission and Anticipated Discharge Date Admission Date: February 13, 2021 Subjective overnight - tele with bradycardia, rates mainly in the 40s mobitz type 2 AV block with 3rd degree AV block seen EKGs with ventricular escape rhythm - rates 30s on those EKGs despite the above he denies dizziness, chest pain, orthopnea during the visit he was lying comfortably in bed in a supine position - he was watching [employer] football he does report feeling tired over the last 1-2 weeks at home had had malodorous urine and dysuria - was treated with cipro x 1 week for possible UTI some of the urine symptoms improved with cipro but not all he had been having gross hematuria on intermittent basis - this is improved he c/o a severe, pruritic rash in his groin/scrotal region also with purulent odor with respect to hematoma about the left knee - denies falls, denies trauma (to his recollection) it does hurt to ambulate on the left leg but he states he can bend the knee Review of Systems Review of Systems: gen - no fevers or chills; appetite poor over last 1-2 weeks; generalized fatigue/weakness cv - no chest pain or orthopnea pulm - no cough/congestion/dyspnea at rest GI - no abd pain Physical Exam Physical Exam: gen - obese, NAD, lying flat in bed without any dyspnea, alert, poor insight into medical problems neck - no JVD mouth - MMM heart - bradycardic, s1 s2, no murmur lungs - cta b/l abd - soft NT ND BS+ skin - severe candidal rash of groin, b/l medial thighs, scrotum, skin folds lower panus; odor present, very erythematous; ecchymoses about the left knee, distal left anterior thigh ext - pulses 2+ b/l musculo - probable small joint effusion left knee; I am able to passively flex/extend the knee without significant difficulty; large hematoma superior to L knee, lateral aspect - may communicate with joint or suprapatella bursae Results & Data Results & Data ([facility]) Vital Signs (Past 12 Hours) Vital Signs Temp Pulse Pulse Resp BP BP Pulse Ox 02/14/21 11:09 36.5 C 46 L 18 153/71 H 96 02/14/21 06:38 36.6 C 42 L 20 114/54 L 98 02/14/21 02:55 36.6 C 47 L 20 167/82 H 99 02/14/21 02:15 52 L 17 99 Laboratory Results Laboratory Results - last 24 hr 02/13/21 02/13/21 02/13/21 15:35 15:35 15:35 WBC 13.59 H RBC 4.11 L Hgb 11.9 L Hct 36.1 L MCV 87.8 MCH 29.0 MCHC 33.0 RDW Std Deviation 47.4 H RDW Coeff of More[place] 14.9 H Plt Count 489 H MPV 11.3 H Immature Gran % (Auto) 1.9 Neut % (Auto) 72.5 Lymph % (Auto) 13.0 [place] % (Auto) 10.3 Eos % (Auto) 1.8 Baso % (Auto) 0.5 Neut # (Auto) 9.85 H Lymph # (Auto) 1.77 [place] # (Auto) 1.40 H Eos # (Auto) 0.24 Baso # (Auto) 0.07 Immature Gran # (Auto) 0.26 H PT > 90.0 H INR > 10.7 H* APTT 109.8 H* PTT Ratio 4.2 Sodium 128 L Potassium 4.4 Chloride 95 L Carbon Dioxide 19 L Anion Gap 14.0 H BUN 21 H Creatinine 0.95 Est Cr Clr Drug Dosing 111.8 Est GFR ( Amer) 97.7 Est GFR (Non-Af Amer) 84.3 BUN/Creatinine Ratio 21.8 H Glucose 485 H* POC Glucose Estimat Average Glucose Hemoglobin A1c Calcium 9.3 Total Bilirubin 1.0 AST 17 ALT 16 Alkaline Phosphatase 183 H D Total Protein 7.3 Albumin 2.7 L Globulin 4.6 H Albumin/Globulin Ratio 0.6 L Beta-Hydroxybutyric Acd 64.27 H Urine Color Urine Appearance Urine pH Ur Specific [place] Urine Protein Urine Glucose (UA) Urine Ketones Urine Blood Urine Nitrite Urine Bilirubin Urine Urobilinogen Ur Leukocyte Esterase Urine WBC (Auto) Urine RBC (Auto) U Hyaline Cast (Auto) U Epithel Cells (Auto) Urine Bacteria (Auto) Urine Yeast SARS-CoV-2, RNA, NAAT Blood Type Antibody Screen 02/13/21 02/13/21 02/13/21 15:35 15:38 18:03 WBC RBC Hgb Hct MCV MCH MCHC RDW Std Deviation RDW Coeff of [place] Plt Count MPV Immature Gran % (Auto) Neut % (Auto) Lymph % (Auto) [place] % (Auto) Eos % (Auto) Baso % (Auto) Neut # (Auto) Lymph # (Auto) [place] # (Auto) Eos # (Auto) Baso # (Auto) Immature Gran # (Auto) PT INR APTT PTT Ratio Sodium Potassium Chloride Carbon Dioxide Anion Gap BUN Creatinine Est Cr Clr Drug Dosing Est GFR ( Amer) Est GFR (Non-Af Amer) BUN/Creatinine Ratio Glucose POC Glucose Estimat Average Glucose Hemoglobin A1c Calcium Total Bilirubin AST ALT Alkaline Phosphatase Total Protein Albumin Globulin Albumin/Globulin Ratio Beta-Hydroxybutyric Acd Urine Color Yellow Urine Appearance Cloudy A Urine pH 5.0 Ur Specific [place] 1.034 H Urine Protein Negative Urine Glucose (UA) 3+ H Urine Ketones 3+ H Urine Blood 1+ H Urine Nitrite Negative Urine Bilirubin Negative Urine Urobilinogen Negative Ur Leukocyte Esterase 1+ H Urine WBC (Auto) >30 H Urine RBC (Auto) 0-4 U Hyaline Cast (Auto) 1-5 U Epithel Cells (Auto) >30 H Urine Bacteria (Auto) Negative Urine Yeast Budding A SARS-CoV-2, RNA, NAAT NEGATIVE Blood Type A Positive Antibody Screen NEGATIVE 02/13/21 02/13/21 02/13/21 18:33 19:56 21:54 WBC RBC Hgb Hct MCV MCH MCHC RDW Std Deviation RDW Coeff of [place] Plt Count MPV Immature Gran % (Auto) Neut % (Auto) Lymph % (Auto) [place] % (Auto) Eos % (Auto) Baso % (Auto) Neut # (Auto) Lymph # (Auto) [place] # (Auto) Eos # (Auto) Baso # (Auto) Immature Gran # (Auto) PT INR APTT PTT Ratio Sodium Potassium Chloride Carbon Dioxide Anion Gap BUN Creatinine Est Cr Clr Drug Dosing Est GFR ( Amer) Est GFR (Non-Af Amer) BUN/Creatinine Ratio Glucose POC Glucose 313 H* 213 H 217 H Estimat Average Glucose Hemoglobin A1c Calcium Total Bilirubin AST ALT Alkaline Phosphatase Total Protein Albumin Globulin Albumin/Globulin Ratio Beta-Hydroxybutyric Acd Urine Color Urine Appearance Urine pH Ur Specific [place] Urine Protein Urine Glucose (UA) Urine Ketones Urine Blood Urine Nitrite Urine Bilirubin Urine Urobilinogen Ur Leukocyte Esterase Urine WBC (Auto) Urine RBC (Auto) U Hyaline Cast (Auto) U Epithel Cells (Auto) Urine Bacteria (Auto) Urine Yeast SARS-CoV-2, RNA, NAAT Blood Type Antibody Screen 02/13/21 02/14/21 02/14/21 23:54 01:03 04:13 WBC RBC Hgb 11.2 L Hct 33.4 L MCV MCH MCHC RDW Std Deviation RDW Coeff of [place] Plt Count MPV Immature Gran % (Auto) Neut % (Auto) Lymph % (Auto) [place] % (Auto) Eos % (Auto) Baso % (Auto) Neut # (Auto) Lymph # (Auto) [place] # (Auto) Eos # (Auto) Baso # (Auto) Immature Gran # (Auto) PT INR APTT PTT Ratio Sodium Potassium Chloride Carbon Dioxide Anion Gap BUN Creatinine Est Cr Clr Drug Dosing Est GFR ( Amer) Est GFR (Non-Af Amer) BUN/Creatinine Ratio Glucose POC Glucose 235 H 173 H Estimat Average Glucose Hemoglobin A1c Calcium Total Bilirubin AST ALT Alkaline Phosphatase Total Protein Albumin Globulin Albumin/Globulin Ratio Beta-Hydroxybutyric Acd Urine Color Urine Appearance Urine pH Ur Specific [place] Urine Protein Urine Glucose (UA) Urine Ketones Urine Blood Urine Nitrite Urine Bilirubin Urine Urobilinogen Ur Leukocyte Esterase Urine WBC (Auto) Urine RBC (Auto) U Hyaline Cast (Auto) U Epithel Cells (Auto) Urine Bacteria (Auto) Urine Yeast SARS-CoV-2, RNA, NAAT Blood Type Antibody Screen 02/14/21 02/14/21 02/14/21 05:33 05:33 05:33 WBC 9.56 RBC 3.61 L Hgb 10.4 L Hct 30.9 L MCV 85.6 MCH 28.8 MCHC 33.7 RDW Std Deviation 45.8 RDW Coeff of Morena 14.8 H Plt Count 373 MPV 11.0 H Immature Gran % (Auto) 1.9 Neut % (Auto) 63.9 Lymph % (Auto) 16.0 [place] % (Auto) 11.7 Eos % (Auto) 6.0 Baso % (Auto) 0.5 Neut # (Auto) 6.11 Lymph # (Auto) 1.53 [place] # (Auto) 1.12 H Eos # (Auto) 0.57 H Baso # (Auto) 0.05 Immature Gran # (Auto) 0.18 H PT 16.3 H INR 1.7 H APTT PTT Ratio Sodium 136 D Potassium 3.5 D Chloride 101 Carbon Dioxide 29 Anion Gap 6.0 BUN 18 Creatinine 0.56 L D Est Cr Clr Drug Dosing 190.1 Est GFR ( Amer) 126.7 Est GFR (Non-Af Amer) 109.3 BUN/Creatinine Ratio 32.1 H Glucose 158 H POC Glucose Estimat Average Glucose Hemoglobin A1c Calcium 8.1 L Total Bilirubin 1.0 AST 18 ALT 13 Alkaline Phosphatase 161 H Total Protein 6.1 L Albumin 2.2 L Globulin 3.9 Albumin/Globulin Ratio 0.6 L Beta-Hydroxybutyric Acd Urine Color Urine Appearance Urine pH Ur Specific [place] Urine Protein Urine Glucose (UA) Urine Ketones Urine Blood Urine Nitrite Urine Bilirubin Urine Urobilinogen Ur Leukocyte Esterase Urine WBC (Auto) Urine RBC (Auto) U Hyaline Cast (Auto) U Epithel Cells (Auto) Urine Bacteria (Auto) Urine Yeast SARS-CoV-2, RNA, NAAT Blood Type Antibody Screen 02/14/21 02/14/21 02/14/21 05:33 07:25 09:44 WBC RBC Hgb Hct MCV MCH MCHC RDW Std Deviation RDW Coeff of [place] Plt Count MPV Immature Gran % (Auto) Neut % (Auto) Lymph % (Auto) [place] % (Auto) Eos % (Auto) Baso % (Auto) Neut # (Auto) Lymph # (Auto) [place] # (Auto) Eos # (Auto) Baso # (Auto) Immature Gran # (Auto) PT INR APTT 38.0 H PTT Ratio 1.4 Sodium Potassium Chloride Carbon Dioxide Anion Gap BUN Creatinine Est Cr Clr Drug Dosing Est GFR ( Amer) Est GFR (Non-Af Amer) BUN/Creatinine Ratio Glucose POC Glucose 157 H Estimat Average Glucose Pending Hemoglobin A1c Pending Calcium Total Bilirubin AST ALT Alkaline Phosphatase Total Protein Albumin Globulin Albumin/Globulin Ratio Beta-Hydroxybutyric Acd Urine Color Urine Appearance Urine pH Ur Specific [place] Urine Protein Urine Glucose (UA) Urine Ketones Urine Blood Urine Nitrite Urine Bilirubin Urine Urobilinogen Ur Leukocyte Esterase Urine WBC (Auto) Urine RBC (Auto) U Hyaline Cast (Auto) U Epithel Cells (Auto) Urine Bacteria (Auto) Urine Yeast SARS-CoV-2, RNA, NAAT Blood Type Antibody Screen 02/14/21 11:40 WBC RBC Hgb Hct MCV MCH MCHC RDW Std Deviation RDW Coeff of [place] Plt Count MPV Immature Gran % (Auto) Neut % (Auto) Lymph % (Auto) [place] % (Auto) Eos % (Auto) Baso % (Auto) Neut # (Auto) Lymph # (Auto) [place] # (Auto) Eos # (Auto) Baso # (Auto) Immature Gran # (Auto) PT INR APTT PTT Ratio Sodium Potassium Chloride Carbon Dioxide Anion Gap BUN Creatinine Est Cr Clr Drug Dosing Est GFR ( Amer) Est GFR (Non-Af Amer) BUN/Creatinine Ratio Glucose POC Glucose 227 H Estimat Average Glucose Hemoglobin A1c Calcium Total Bilirubin AST ALT Alkaline Phosphatase Total Protein Albumin Globulin Albumin/Globulin Ratio Beta-Hydroxybutyric Acd Urine Color Urine Appearance Urine pH Ur Specific [place] Urine Protein Urine Glucose (UA) Urine Ketones Urine Blood Urine Nitrite Urine Bilirubin Urine Urobilinogen Ur Leukocyte Esterase Urine WBC (Auto) Urine RBC (Auto) U Hyaline Cast (Auto) U Epithel Cells (Auto) Urine Bacteria (Auto) Urine Yeast SARS-CoV-2, RNA, NAAT Blood Type Antibody Screen Diagnostic Findings urine cx pending PG Care Time/CCT Total # of Minutes Spent Total Time Spent with Patient: Total time spent is greater than 50% in coordination of care (as documented) at patient's floor/unit and/or counseling patient: Coding Level of Care Code 88906 Subseq Hosp Care Lvl 3 Diagnoses Supratherapeutic INR R79.1 Factor V Leiden mutation D68.51 Hematuria R31.9 DM (diabetes mellitus), type 2, uncontrolled w/neurologic complication E11.49; E11.65 Coronary artery disease I25.10 Bradycardia R00.1 Mixed restrictive and obstructive lung disease J44.9; J98.4 CHRISTIANO (obstructive sleep apnea) G47.33 Hematoma of left knee region S80.02XA Pseudohyponatremia R79.89 Hives L50.9 Complete heart block I44.2 Kelly rash of groin B37.89 Morbid obesity with BMI of 50.0-59.9, adult E66.01; Z68.43 UTI (urinary tract infection) N39.0
[2021-02-14] MEDS ORDERED: FLUCONAZOLE 100 MG TAB PO ONE (13:35)
--- NOTE | 2021-02-14 14:14 | XRay Report ---
XR knee LT 3V CLINICAL HISTORY: ?hemarthrosis?; r/o fracture. Left knee pain. COMPARISON STUDY: None. FINDINGS: No fracture or dislocation within the left knee. Suspect a small knee effusion. There is mi ld diffuse soft tissue swelling. There is mild tricompartmental osteoarthritis. IMPRESSION: 1. No acute fracture or dislocation within the left knee. 2. Diffuse soft tissue swelling and a small knee effusion. 3. Mild tricompartmental osteoarthritis. ACT 112: Negative or not required by law. Electronically signed by: Shiva Gilmore M.D. 02/14/2021 2:13 PM
--- NOTE | 2021-02-14 14:48 | Pharmacy Report ---
Pharmacy Glycemic Short Note 2 - Date of Service February 14, 2021 - Glycemic Short BSG Results (Last 24 hours): 02/13/21 02/13/21 02/13/21 15:35 18:33 19:56 Glucose 485 H* POC Glucose 313 H* 213 H 02/13/21 02/13/21 02/14/21 21:54 23:54 04:13 Glucose POC Glucose 217 H 235 H 173 H 02/14/21 02/14/21 02/14/21 05:33 07:25 11:40 Glucose 158 H POC Glucose 157 H 227 H OUTPATIENT ANTIDIABETIC REGIMEN: * Metformin 1000 mg PO BID with meals * Regular insulin SS ASSESSMENT: * Patient received total 43 units of insulin yesterday; 35 units basal + 8 units bolus. * On admission, BSG was 485 mg/dl yesterday evening. BSG trended down to 235 mg/dl by midnight after basal 35 units and bolus of 4 units. * Fasting BSG today was 157 mg/dl. Ordered basal insulin 30-35 units scale based on BSG at HS tonight. * Pre-lunch BSG trended up to 227 mg/dl. Novolog parameters tightened slightly with lunch. PLAN FOR INPATIENT GLYCEMIC CONTROL: * Hold outpatient oral diabetes medications * Basal insulin * Lantus 30-35 units scale SQ HS based on BSG (35 units for BSG greater than or equal to 180 mg/dl). * Bolus insulin * NovoLog per scale ACHS or Q6hrs while NPO * Goal Range: Low 110 mg/dL - High 140 mg/dL * Correction Factor: 20 mg/dL/unit * Nutritional / Prandial insulin per carb ratio of 1 unit per 7 grams CHO consumed PLAN FOR DISCHARGE: * HbA1c pending
[2021-02-14] MEDS: NYSTATIN POWDER 15GM BTL EXT SCH ×2 (14:53→21:01)
[2021-02-14] MEDS: MICONAZOLE NITRATE POWDER 43 GM EXT PRN (14:54)
--- NOTE | 2021-02-14 16:43 | Cardiology Consultation ---
Date of Consultation February 14, 2021 Assessment & Plan (1) Complete heart block: ASSESSMENT/PLAN: 1. Complete heart block: Although presented with hematuria and supratherapeutic INR, noted to be in complete heart block with ventricular escape rhythm. Appears asymptomatic during this hospital stay but has decreased stamina noted as an outpatient. Onset of are block unclear. Avoid AV estelle blockers. Recommended pacer pads placed in case emergent need. NPO after midnight. Electrophysiology consultation. Considered and discussed permanent pacemaker placement. He is agreeable if necessary. No indication for urgent temporary pacer. Remain in bed. TSH and Lyme titers ordered. Echo ordered and pending. 2. CAD is listed in his past medical history. He denies a history of CAD and has not had a cardiac catheterization per his report or per records. He had what was referred to as an equivocal myocardial perfusion study in the past. No angina. 3. Disposition: Electrophysiology consultation tomorrow. Patient care discussed with Dr. Adrian of the primary hospitalist service. Highly complex medical issue for which pacemaker placement considered and recommended but will be deferred to electrophysiology. Thank you for allowing me to participate in the care of your patient. Please call for any other questions or concerns. Sincerely, Khadar Munoz M.D. History of Present Illness Reason for Consultation: "High Degree AV Block" Requesting Physician: Zak Adrian Attending Physician: Zak Adrian History of Present Illness Mr. Dodson is a very pleasant 65-year-old gentleman with history significant for type 2 diabetes, diabetic neuropathy, restrictive and obstructive lung disease, hypertension, factor 5 Leiden on chronic anticoagulation, and sleep apnea. He was seen in the past by Dr. Milan in the cardiology office on 03/21/2011 for equivocal nuclear stress. There is no record of cardiac catheterization, however CAD is listed on his past medical history. He denies ever having a cardiac catheterization. He was hospitalized on 02/13/2021 with supratherapeutic INR > 10, hematuria, and left leg hematoma/ecchymosis. He states that for the past week or so he has noted hematuria. INR has since been reversed and he has noted significant improvement, now only with a small amount of hematuria. INR today was 1.7. While here, he has been placed on telemetry. Telemetry demonstrates sinus rhythm with third-degree AV block with ventricular escape rhythm. He denies syncope, near-syncope, or lightheadedness. He does not exercise it appears to be rather sedentary. He does have dyspnea with exertion which is chronic and has progressively worsened over time. He has less stamina than he has in the past but has not noted any acute worsening. He has not noted any recent tick bite and does not venture into the hung. He does have a dog that comes and goes outside. He denies melena, hematochezia, palpitations, shortness of breath at rest, edema, or orthopnea. Review of systems: As above. Review of systems otherwise negative/unremarkable. Family history: His father underwent pacemaker placement and apparently during the procedure. His brother also has some form of conduction abnormality. Social history: He denies smoking. No alcohol or drug abuse. Never . One daughter. Lives at home with his sister. Unaccompanied. Allergies Allergy/AdvReac Type Severity Reaction Status Date / Time ceftriaxone Allergy Severe Hives Verified 02/13/21 18:12 Sulfa (Sulfonamide Allergy Intermediate HIVES-ITCHY Verified 02/13/21 15:31 Antibiotics) RASH Home Medications Medication Instructions Recorded Confirmed Type cholecalciferol (vitamin D3) 25 1,000 units PO WK 02/20/19 02/13/21 History mcg (1,000 unit) capsule atorvastatin 20 mg tablet 20 mg PO QAM #90 tab 11/12/19 02/13/21 Rx insulin regular human 100 unit/mL 1 sliding scale dose SUBCUT 11/26/19 02/13/21 Rx injection solution (Humulin R USEASDIRECTD #10 ml Regular U-100 Insulin) insulin syringe-needle U-100 1 mL #300 ea 12/02/19 03/11/20 Rx 31 gauge x 5/16" (BD Insulin Syringe Ultra-Fine) furosemide 80 mg tablet 80 mg PO QAM #30 tab 04/06/20 02/13/21 Rx lisinopril 10 mg tablet 10 mg PO QAM #90 tab 05/11/20 02/13/21 Rx metformin 1,000 mg tablet 1,000 mg PO BID #180 tab 05/11/20 02/13/21 Rx warfarin 10 mg tablet 20 mg PO QAM #180 tab 05/11/20 02/13/21 Rx lancets 30 gauge (OneTouch Delica #25 ea 12/13/21 Rx Lancets) oxycodone 10 mg tablet 10 mg PO TID PRN #90 tab 02/02/21 02/13/21 Rx nystatin 100,000 unit/gram topical 1 applic TOP BID #30 gm 02/08/21 02/13/21 Rx cream blood sugar diagnostic #10 ea 02/10/21 Rx Patient History Medical History (Updated 02/14/21 @ 17:20 by Vernon uMnoz MD) Coronary artery disease DM (diabetes mellitus), type 2, uncontrolled w/neurologic complication Factor V Leiden mutation on warfarin daily Fatty liver ? pt denies Gastroesophageal reflux disease Generalized OA Hypercholesterolemia Hyperglobulinemia Hypertension Morbid obesity with BMI of 50.0-59.9, adult On anticoagulant therapy warfarin daily CHRISTIANO (obstructive sleep apnea) cpap Vitamin D deficiency Surgical History History of colonoscopy History of tooth extraction History of wisdom tooth extraction S/P appendectomy S/P tonsillectomy Family History Father Coronary heart disease Myocardial infarction Mother COPD (chronic obstructive pulmonary disease) Stroke Family history of diabetes mellitus Diabetes Brother Prostate cancer Coronary heart disease Grandfather (Paternal) Family history of diabetes mellitus Grandmother (Paternal) Family history of diabetes mellitus Other No family history of adverse response to anesthesia Denies family history of Ovarian cancer Breast cancer Colorectal cancer Social History Smoking Status: Never smoker Second Hand Exposure: Yes (parents smoked); Hx Alcohol Use: No (quit 10+yrs ago) Hx Substance Use: No Preferred Language: Tuvaluan Communication Ability: Effective Visual Impairment: Limited Hearing Ability: Normal Health Information Administrator Required: No Beliefs That Will Affect Care: None marital status: Life Partner Current Living Situation: Family and Significant Other Current Living Situation Comment: Lives with sister current occupational status: retired and disabled current occupation: [employer] Other Information That Helps Us Care for You: No Feels Safe at Home: Yes Childhood Exposure to Second-Hand Smoke: No caffeine: Yes Dental Care, Regularly: No Seatbelt Use: always Assistive Devices: CPAP and Glasses Physical Exam Physical Exam: Gen.: No acute distress. Alert and oriented. HEENT: Anicteric sclera. Neck: No appreciable JVD, but thick neck. No bruits. Normal carotid upstrokes bilaterally. Cardiac: PMI was nonpalpable. No ventricular heave. Regular but bradycardic. Normal S1-S2. 1/6 systolic murmur. No rubs or gallops. Pulmonary: Clear to auscultation bilaterally without wheezes, rales, or rhonchi. Abdomen: Soft, nontender, nondistended, with normoactive bowel sounds. No bruits noted. Extremities: 2+ radial pulses bilaterally. 2+ posterior tibialis pulses bilaterally. Trace bilateral lower extremity edema, left > right. Left knee ecchymotic and appears swollen. No cyanosis. Psychiatric: Affect appears appropriate. Results & Data ([facility]) Vital Signs (Past 12 Hours) Vital Signs Temp Pulse Pulse Resp BP BP Pulse Ox 02/14/21 15:08 36.3 C L 124/67 97 02/14/21 11:09 36.5 C 46 L 18 153/71 H 96 02/14/21 08:00 41 L 02/14/21 06:38 36.6 C 42 L 20 114/54 L 98 Laboratory Results Laboratory Results - last 24 hr 02/13/21 02/13/21 02/13/21 18:03 18:33 19:56 WBC RBC Hgb Hct MCV MCH MCHC RDW Std Deviation RDW Coeff of More[place] Plt Count MPV Immature Gran % (Auto) Neut % (Auto) Lymph % (Auto) Graves % (Auto) Eos % (Auto) Baso % (Auto) Neut # (Auto) Lymph # (Auto) Graves # (Auto) Eos # (Auto) Baso # (Auto) Immature Gran # (Auto) PT INR APTT PTT Ratio Sodium Potassium Chloride Carbon Dioxide Anion Gap BUN Creatinine Est Cr Clr Drug Dosing Est GFR ( Amer) Est GFR (Non-Af Amer) BUN/Creatinine Ratio Glucose POC Glucose 313 H* 213 H Estimat Average Glucose Hemoglobin A1c Calcium Total Bilirubin AST ALT Alkaline Phosphatase Total Protein Albumin Globulin Albumin/Globulin Ratio Urine Color Yellow Urine Appearance Cloudy A Urine pH 5.0 Ur Specific [place] 1.034 H Urine Protein Negative Urine Glucose (UA) 3+ H Urine Ketones 3+ H Urine Blood 1+ H Urine Nitrite Negative Urine Bilirubin Negative Urine Urobilinogen Negative Ur Leukocyte Esterase 1+ H Urine WBC (Auto) >30 H Urine RBC (Auto) 0-4 U Hyaline Cast (Auto) 1-5 U Epithel Cells (Auto) >30 H Urine Bacteria (Auto) Negative Urine Yeast Budding A 02/13/21 02/13/21 02/14/21 21:54 23:54 01:03 WBC RBC Hgb 11.2 L Hct 33.4 L MCV MCH MCHC RDW Std Deviation RDW Coeff of More[place] Plt Count MPV Immature Gran % (Auto) Neut % (Auto) Lymph % (Auto) Graves % (Auto) Eos % (Auto) Baso % (Auto) Neut # (Auto) Lymph # (Auto) Graves # (Auto) Eos # (Auto) Baso # (Auto) Immature Gran # (Auto) PT INR APTT PTT Ratio Sodium Potassium Chloride Carbon Dioxide Anion Gap BUN Creatinine Est Cr Clr Drug Dosing Est GFR ( Amer) Est GFR (Non-Af Amer) BUN/Creatinine Ratio Glucose POC Glucose 217 H 235 H Estimat Average Glucose Hemoglobin A1c Calcium Total Bilirubin AST ALT Alkaline Phosphatase Total Protein Albumin Globulin Albumin/Globulin Ratio Urine Color Urine Appearance Urine pH Ur Specific [place] Urine Protein Urine Glucose (UA) Urine Ketones Urine Blood Urine Nitrite Urine Bilirubin Urine Urobilinogen Ur Leukocyte Esterase Urine WBC (Auto) Urine RBC (Auto) U Hyaline Cast (Auto) U Epithel Cells (Auto) Urine Bacteria (Auto) Urine Yeast 02/14/21 02/14/21 02/14/21 04:13 05:33 05:33 WBC 9.56 RBC 3.61 L Hgb 10.4 L Hct 30.9 L MCV 85.6 MCH 28.8 MCHC 33.7 RDW Std Deviation 45.8 RDW Coeff of Morena 14.8 H Plt Count 373 MPV 11.0 H Immature Gran % (Auto) 1.9 Neut % (Auto) 63.9 Lymph % (Auto) 16.0 Graves % (Auto) 11.7 Eos % (Auto) 6.0 Baso % (Auto) 0.5 Neut # (Auto) 6.11 Lymph # (Auto) 1.53 Graves # (Auto) 1.12 H Eos # (Auto) 0.57 H Baso # (Auto) 0.05 Immature Gran # (Auto) 0.18 H PT 16.3 H INR 1.7 H APTT PTT Ratio Sodium Potassium Chloride Carbon Dioxide Anion Gap BUN Creatinine Est Cr Clr Drug Dosing Est GFR ( Amer) Est GFR (Non-Af Amer) BUN/Creatinine Ratio Glucose POC Glucose 173 H Estimat Average Glucose Hemoglobin A1c Calcium Total Bilirubin AST ALT Alkaline Phosphatase Total Protein Albumin Globulin Albumin/Globulin Ratio Urine Color Urine Appearance Urine pH Ur Specific [place] Urine Protein Urine Glucose (UA) Urine Ketones Urine Blood Urine Nitrite Urine Bilirubin Urine Urobilinogen Ur Leukocyte Esterase Urine WBC (Auto) Urine RBC (Auto) U Hyaline Cast (Auto) U Epithel Cells (Auto) Urine Bacteria (Auto) Urine Yeast 02/14/21 02/14/21 02/14/21 05:33 05:33 07:25 WBC RBC Hgb Hct MCV MCH MCHC RDW Std Deviation RDW Coeff of Morena Plt Count MPV Immature Gran % (Auto) Neut % (Auto) Lymph % (Auto) Graves % (Auto) Eos % (Auto) Baso % (Auto) Neut # (Auto) Lymph # (Auto) Graves # (Auto) Eos # (Auto) Baso # (Auto) Immature Gran # (Auto) PT INR APTT PTT Ratio Sodium 136 D Potassium 3.5 D Chloride 101 Carbon Dioxide 29 Anion Gap 6.0 BUN 18 Creatinine 0.56 L D Est Cr Clr Drug Dosing 190.1 Est GFR ( Amer) 126.7 Est GFR (Non-Af Amer) 109.3 BUN/Creatinine Ratio 32.1 H Glucose 158 H POC Glucose 157 H Estimat Average Glucose Pending Hemoglobin A1c Pending Calcium 8.1 L Total Bilirubin 1.0 AST 18 ALT 13 Alkaline Phosphatase 161 H Total Protein 6.1 L Albumin 2.2 L Globulin 3.9 Albumin/Globulin Ratio 0.6 L Urine Color Urine Appearance Urine pH Ur Specific [place] Urine Protein Urine Glucose (UA) Urine Ketones Urine Blood Urine Nitrite Urine Bilirubin Urine Urobilinogen Ur Leukocyte Esterase Urine WBC (Auto) Urine RBC (Auto) U Hyaline Cast (Auto) U Epithel Cells (Auto) Urine Bacteria (Auto) Urine Yeast 02/14/21 02/14/21 02/14/21 09:44 11:40 16:39 WBC RBC Hgb Hct MCV MCH MCHC RDW Std Deviation RDW Coeff of Morena Plt Count MPV Immature Gran % (Auto) Neut % (Auto) Lymph % (Auto) Graves % (Auto) Eos % (Auto) Baso % (Auto) Neut # (Auto) Lymph # (Auto) Graves # (Auto) Eos # (Auto) Baso # (Auto) Immature Gran # (Auto) PT INR APTT 38.0 H PTT Ratio 1.4 Sodium Potassium Chloride Carbon Dioxide Anion Gap BUN Creatinine Est Cr Clr Drug Dosing Est GFR ( Amer) Est GFR (Non-Af Amer) BUN/Creatinine Ratio Glucose POC Glucose 227 H 282 H Estimat Average Glucose Hemoglobin A1c Calcium Total Bilirubin AST ALT Alkaline Phosphatase Total Protein Albumin Globulin Albumin/Globulin Ratio Urine Color Urine Appearance Urine pH Ur Specific [place] Urine Protein Urine Glucose (UA) Urine Ketones Urine Blood Urine Nitrite Urine Bilirubin Urine Urobilinogen Ur Leukocyte Esterase Urine WBC (Auto) Urine RBC (Auto) U Hyaline Cast (Auto) U Epithel Cells (Auto) Urine Bacteria (Auto) Urine Yeast Diagnostic Findings CT abdomen/pelvis 02/13/2021: No acute abnormalities. Left knee x-ray 02/14/2021: No acute fracture or dislocation. Diffuse soft tissue swelling and small knee effusion. Telemetry personally reviewed: Sinus rhythm with complete heart block and ventricular escape in the 40s. ECGs personally reviewed: ECG 02/13/2021 at 6:36 p.m.: Possible sinus with third-degree AV block and ventricular escape rhythm in the 40s. Medications Administered Current Inpatient Medications Acetaminophen (Acetaminophen 325 Mg Tab) 650 mg PO Q4H PRN PRN Reason: Pain or Fever Stop: 03/15/21 20:58 Dextrose (Dextrose 50% 50 Ml Syringe) 25 - 50 ml IV UD PRN; Protocol PRN Reason: Hypoglycemia Protocol Stop: 03/15/21 20:58 Diphenhydramine HCl (Diphenhydramine 50 Mg/Ml Vial) 25 mg IV Q6H PRN PRN Reason: urticaria/hives Stop: 03/15/21 20:58 Fluconazole (Fluconazole 100 Mg Tab) 100 mg PO QAM [facility] Stop: 02/22/21 08:59 Furosemide (Furosemide 80 Mg Tab) 80 mg PO QAM [facility] Stop: 03/16/21 08:59 Last Admin: 02/14/21 08:20 Dose: 80 mg Documented by: Glucagon (Glucagon For Inj 1 Mg Vial) 1 mg SQ UD PRN; Protocol PRN Reason: Hypoglycemia Protocol Stop: 03/15/21 20:58 Glucose (Glucose 10 Tabs/Tube) 4 - 8 tabs PO UD PRN; Protocol PRN Reason: Hypoglycemia Protocol Stop: 03/15/21 20:58 Glucose (Glucose 40% Gel 15 Gm Tube) 15 - 30 gm PO UD PRN; Protocol PRN Reason: Hypoglycemia Protocol Stop: 03/15/21 20:58 Famotidine 20 mg/ Syringe 5 mls @ 2.5 mls/min IV BID [facility] Stop: 03/15/21 20:59 Last Admin: 02/14/21 08:26 Dose: 2.5 mls/min Documented by: Insulin Aspart (Insulin Aspart Per Unit) 0 units SC ACHS [facility] Stop: 03/15/21 20:59 Last Admin: 02/14/21 12:54 Dose: 14 units Documented by: Insulin Glargine (Insulin Glargine Solostar 100 Units/Ml 3 Ml Pen) 0 units SC HS [facility]; Protocol Stop: 03/16/21 20:59 Lisinopril (Lisinopril 10 Mg Tab) 10 mg PO QAM [facility] Stop: 03/16/21 08:59 Last Admin: 02/14/21 08:20 Dose: 10 mg Documented by: Miconazole Nitrate (Miconazole Nitrate Powder 43 Gm) 1 appln EXT PRN PRN PRN Reason: Affected Skin Folds Stop: 03/16/21 13:21 Last Admin: 02/14/21 14:54 Dose: 1 appln Documented by: Miscellaneous (Carbohydrates For Hypoglycemia ) 15 - 30 gm PO UD PRN PRN Reason: Hypoglycemia Protocol Stop: 03/15/21 20:58 Miscellaneous Information (Pharmacy Glycemic Mgmt Consult) 1 ea N/A UD PRN PRN Reason: Consult Stop: 03/15/21 18:45 Nystatin (Nystatin Powder 15gm Btl) 1 appln EXT TID [facility] Stop: 03/16/21 13:59 Last Admin: 02/14/21 14:53 Dose: 1 appln Documented by: Oxycodone HCl (Oxycodone Hcl Ir 5 Mg Tab (Immediate Release)) 10 mg PO TID PRN PRN Reason: pain Stop: 02/27/21 18:24 Last Admin: 02/14/21 09:14 Dose: 10 mg Documented by: PG Care Time/CCT Total # of Minutes Spent Total Time Spent with Patient: Total time spent is greater than 50% in coordination of care (as documented) at patient's floor/unit and/or counseling patient: Coding Level of Care Code 87354 Initial Inpt Care Lvl 3 Diagnoses Complete heart block I44.2
--- NOTE | 2021-02-14 17:14 | Electrocardiogram Report ---
Test Reason : Blood Pressure : / mmHG Vent. Rate : 041 BPM Atrial Rate : 058 BPM P-R Int : 000 ms QRS Dur : 158 ms QT Int : 572 ms P-R-T Axes : 000 -25 039 degrees QTc Int : 471 ms Probable Sinus rhythm ventricular escape rhythm Right bundle branch block Abnormal ECG When compared with ECG of 13-FEB-2021 18:36, No significant change was found Confirmed by Vernon Munoz ([id number]) on 02/14/2021 5:14:18 PM Referred By: REFERRED SELF Confirmed By:Vernon Munoz
--- NOTE | 2021-02-14 17:17 | Electrocardiogram Report ---
Test Reason : Blood Pressure : / mmHG Vent. Rate : 043 BPM Atrial Rate : 042 BPM P-R Int : 000 ms QRS Dur : 150 ms QT Int : 532 ms P-R-T Axes : 000 -44 006 degrees QTc Int : 449 ms Wide QRS rhythm (possible sinus with ventricular escape rhythm, however difficult to discern P waves ) Left axis deviation Right bundle branch block Possible Anterolateral infarct , age undetermined Abnormal ECG When compared with ECG of 31-MAR-2017 10:27, Wide QRS rhythm has replaced Sinus rhythm Vent. rate has decreased BY 34 BPM Confirmed by Vernon Munoz ([id number]) on 02/14/2021 5:16:44 PM Referred By: REFERRED SELF Confirmed By:Vernon Munoz
[2021-02-14 18:44] LABS: Lyme Ab IgG w/WB Rflx Negative (Negative); Lyme Ab IgM w/WB Rflx Negative (Negative)
[2021-02-14] MEDS ORDERED: INSULIN GLARGINE SOLOSTAR 100 UNITS/ML 3 ML PEN SC SCH (21:00)
[2021-02-15 07:27] LABS: Estimated Average Glucose 332 mg/dl; Hemoglobin A1C 13.2 % (4.5-5.6)
[2021-02-15] MEDS: INSULIN ASPART PER UNIT SC SCH ×4 (08:29→20:59)
[2021-02-15] MEDS: oxyCODONE HCL IR 5 MG TAB (IMMEDIATE RELEASE) PO PRN ×2 (08:30→21:29)
[2021-02-15] MEDS: FLUCONAZOLE 100 MG TAB PO SCH (08:31)
[2021-02-15] MEDS: FUROSEMIDE 80 MG TAB PO SCH (08:31)
[2021-02-15] MEDS: lisinopril 10 MG TAB PO SCH (08:31)
[2021-02-15] MEDS: NYSTATIN POWDER 15GM BTL EXT SCH ×3 (08:32→21:00)
[2021-02-15] MEDS: FAMOTIDINE 20 MG in SYRINGE 3 ML IV SCH ×2 (08:39→20:58)
--- NOTE | 2021-02-15 08:59 | Cardiology Progress Note ---
Date of Service February 15, 2021 Assessment & Plan (1) Complete heart block: (2) Chronic anticoagulation: Plan: 1. He has high-grade and complete heart block, he has had heart block since at least 2019 and it may have progressed. It almost certainly interferes with his exercise ability which is quite limited now and I suspect would improve with the pacemaker implantation. I think he should have a pacemaker, I am planning a dual-chamber pacemaker for tomorrow. I discussed the indications, procedure, risks and alternatives with him and he understands and agrees to proceed. 2. Chronic anticoagulation: He is on warfarin for factor V Leiden, he tells me that since he is on the second floor he has trouble getting out to get INR's and is not consistent about getting them. This is quite risky, I would strongly consider one of the newer agents as an anticoagulant in the future. For now his INR is corrected and should not be an issue for surgery tomorrow. Admission and Anticipated Discharge Date Admission Date: February 13, 2021 Subjective He feels well today, he has not had lightheadedness or dizziness. He has not been active so we do not know his exercise limitation. On review of records he had evidence of AV block in 2019, he was supposed to see Dr. Delgado to consider pacemaker implantation and did not. This rhythm therefore has been present for some time however it most likely affects his exercise ability which is limited. At rest his heart rate is low but probably acceptable but based on his Holter monitor several years ago he does not develop an increased heart rate with activity and he has shown no evidence of increasing his heart rate here. Physical Exam Physical Exam: Constitutional: Alert, cooperative and in no distress. He is obese. HEENT: Unremarkable Neck: No jugular venous distention, carotid pulses are normal and equal bilaterally without bruits. Pulmonary: Clear to auscultation bilaterally. Cardiac: Regular slow rhythm with no murmur, gallop or rub. Abdomen: Soft, nontender with normal bowel sounds. Extremities: No edema. Distal pulses intact. Neurologic: No focal findings. Gait is steady. Skin: No rash or petechiae. Large ecchymosis on his left knee from a week or two ago. Results & Data ([facility]) Vital Signs (Past 12 Hours) Vital Signs Temp Pulse Pulse Pulse Resp BP Pulse Ox 02/15/21 07:54 36.4 C L 46 L 18 120/68 97 02/15/21 03:25 36.9 C 41 L 20 147/73 H 94 02/14/21 23:58 47 L 02/14/21 23:09 36.9 C 77 20 167/72 H 96 Laboratory Results Coagulation 02/14/21 Range/Units 09:44 APTT 38.0 H (21.0-31.0) Seconds Intake and Output 02/14/21 02/15/21 02/15/21 22:59 06:59 14:59 Intake Total 150 / 1515 200 / 1515 Output Total 650 / 1575 300 / 300 Balance 150 / -60 -450 / -60 -300 / -300 Intake: Oral 150 / 1515 200 / 1515 Output: Urine 650 / 1575 300 / 300 Diagnostic Findings Telemetry: High-grade and complete heart block since admission. Heart rate in the mid 40s typically, sometimes slower, never below 30. No long pauses. PG Care Time/CCT Total # of Minutes Spent Total Time Spent with Patient: Total time spent is greater than 50% in coordination of care (as documented) at patient's floor/unit and/or counseling patient: Coding Level of Care Code 48529 Subseq Hosp Care Lvl 3 Diagnoses Complete heart block I44.2 Chronic anticoagulation Z79.01
[2021-02-15 09:10] LABS: INR 1.3 (0.9-1.1); Prothrombin Time 12.9 Seconds (9.0-12.0)
[2021-02-15 09:18] LABS: BUN Creatinine Ratio 21.5 (10-20); Calcium 8.8 mg/dl (8.5-10.1); Creatinine Clr Calc Pharmacy 163.8 ml/min; Est GFR (African American) 119.2 ml/min; Est GFR (Non-African American) 102.8 ml/min; Magnesium 2.1 mg/dl (1.8-2.4); Potassium 3.7 mmol/L (3.5-5.1)
--- NOTE | 2021-02-15 09:18 | Hospitalist Progress Note ---
Date of Service February 15, 2021 Assessment & Plan (1) Ambulatory dysfunction: (2) Bradycardia: (3) Chronic anticoagulation: (4) Complete heart block: (5) Coronary artery disease: (6) DM (diabetes mellitus), type 2, uncontrolled w/neurologic complication: (7) Factor V Leiden mutation: (8) Gastroesophageal reflux disease: (9) Hematuria: (10) Hypercholesterolemia: (11) Hyperglobulinemia: (12) Hypertension: (13) Morbid obesity: (14) CHRISTIANO (obstructive sleep apnea): (15) Supratherapeutic INR: (16) Vitamin D deficiency: (17) Hypoalbuminemia: Plan: 1. Gross hematuria-secondary to supratherapeutic INR. Urine culture 02/13/2021- some yeast. The patient did receive 1 dose of Rocephin in the emergency room but developed ties. No antibiotic felt to be necessary now. Follow-up when INR normalized. Plan outpatient follow-up urinalysis. 2. Supratherapeutic INR-patient not compliant with blood work for the INR. INR 1.3 today. Recheck INR in the morning. 3. Chronic anticoagulation-heterozygote Factor 5 Leiden mutation, history of DVT-patient seen by Dr. Junior from Hematology/Oncology in the past. Single episode of DVT with history of heterozygous factor 5 not specifically an indication to continue long-term anticoagulation but given patient's history of DVT, heterozygous factor 5, chronic venous stasis, obesity and limited mobility decision at that time was made to continue long-term anticoagulation. Given patient's lack of compliance and given his obesity which may limit the usefulness of direct oral anticoagulant, it may be best to stop anticoagulation at this time. 4. Heart block-the patient has had varying degrees of heart block in the past. The patient never followed up with electrophysiology as an outpatient as previously recommended. High-grade heart block noted in 2019. Echo 02/15/21 ejection fraction 50-55%, mild concentric LVH, RV pressure/volume overload with moderately dilated RV and inferior cava dilated. Electrophysiology plans pacemaker tomorrow. 5. Diastolic congestive heart failure-reviewed echo findings above. Patient treated with furosemide 80 mg p.o. q.a.m.. Possibly worse related to heart block. Consider changing furosemide dose or administration root pending course. No change made today since patient clinically stable and is to get a pacemaker tomorrow. 6. Anemia-probably secondary to supratherapeutic INR and hematuria, continue to follow CBC, transfuse as needed. Currently hemodynamically stable. 7. Diabetes mellitus-poorly controlled. Pharmacy consult to help manage diabetes. coding educator consultation consult as well. Metformin on hold since hospitalized. Patient will need insulin on discharge. Of note, in the past he used [id number] insulin because it was cheaper than getting a prescription. 8. Hypoalbuminemia-nutrition consult. 9. Vitamin-D deficiency-plan to recheck lab 10. Hypertension-stable. Currently treated with lisinopril. 11. Obstructive sleep apnea-respiratory therapy consult for BiPAP which patient uses as an outpatient. 12. Morbid obesity-chronic problem for the patient. TSH normal February 2021. 13. History of chronic venous stasis with cellulitis of lower extremities- currently no evidence of infection. 14. DVT prophylaxis-hold given supratherapeutic INR on admission. 15. Disposition-uncertain at this time. History of gait dysfunction. PT and OT consults. Admission and Anticipated Discharge Date Admission Date: February 13, 2021 Subjective 65-year-old male with history of heart block, hypertension, history of cellulitis of the legs, poorly controlled diabetes mellitus (A1c 13.2%), GERD, obstructive sleep apnea (BiPAP), factor 5 Leiden mutation (chronically anticoagulated with warfarin), hyperlipidemia, gait disturbance, fatty liver, morbid obesity, and hyperglobulinemia admitted 02/13/2021 with hematuria and supratherapeutic INR. Hematuria-felt to be secondary to supratherapeutic INR. When INR normalized will need follow-up and if persistent urology consultation. Supratherapeutic INR-received vitamin K intravenous in the emergency room. INR today 1.3. The patient had been on Coumadin rather than a direct oral anticoagulant because of his BMI of 45. Heart block-patient has a history of heart block and was supposed to follow-up with electrophysiology as an outpatient but never did. He has been seen by Dr. Gallardo who plans pacemaker tomorrow. Poorly controlled diabetes. Pharmacist is following blood sugars. Recommend diabetic education while hospitalized. Today the patient denies headache, chest pain, palpitations, shortness of breath. He has no melena or hematochezia. Denies dysuria. No significant leg edema today. No focal neurologic complaint. Review of Systems Review of Systems: As noted in the HPI Physical Exam Constitutional: no acute distress Neck: trachea midline Respiratory: normal respiratory effort, lungs clear to auscultation Auscultation: no rales, no rhonchi and no wheezes Cardiovascular: Regular rhythm with distant heart sounds, no obvious murmurs, rubs, gallops Trace dependent edema Gastrointestinal (Abdomen): normal bowel sounds, soft, nontender, no hepatosplenomegaly Musculoskeletal: no cyanosis or clubbing, extremities motor strength 5/5 Skin: Ecchymosis noted over the left knee and tissue surrounding the left knee. Psychiatric: Orientation: cooperative Eye Contact: good eye contact Lymphatic: no preauricular lymphadenopathy, no cervical lymphadenopathy and no subclavicular lymphadenopathy Results & Data Results & Data ([facility]) Vital Signs (Past 12 Hours) Vital Signs Temp Pulse Pulse Pulse Resp BP Pulse Ox 02/15/21 07:54 97.5 F L 46 L 18 120/68 97 02/15/21 03:25 98.4 F 41 L 20 147/73 H 94 02/14/21 23:58 47 L 02/14/21 23:09 98.4 F 77 20 167/72 H 96 Primary Care Results Results Primary Care Results: WBC 9.56 K/uL (4.8-10.8) 02/14/21 RBC 3.61 M/uL (4.7-6.1) L 02/14/21 Hgb 10.4 g/dL (14.0-18.0) L 02/14/21 Hct 30.9 % (42-52) L 02/14/21 MCV 85.6 fL (80-100) 02/14/21 MCH 28.8 pg (25-34) 02/14/21 MCHC 33.7 g/dL (32-36) 02/14/21 RDW Coefficient of Variation 14.8 % (11.5-14.5) H 02/14/21 Plt Count 373 K/uL (130-400) 02/14/21 MPV 11.0 fL (7.4-10.4) H 02/14/21 Immature Granulocyte % (Auto) 1.9 % 02/14/21 Neutrophils (%) (Auto) 63.9 % 02/14/21 Lymphocytes (%) (Auto) 16.0 % 02/14/21 INR 1.3 (0.9-1.1) H 02/15/21 APTT 38.0 Seconds (21.0-31.0) H 02/14/21 Na 137 mmol/L (136-145) 02/15/21 K 3.7 mmol/L (3.5-5.1) 02/15/21 Cl 101 mmol/L (98-107) 02/15/21 CO2 28 mmol/L (21-32) 02/15/21 Anion Gap 7.0 (3-11) 02/15/21 BUN 14 mg/dl (7-18) 02/15/21 Creatinine 0.65 mg/dl (0.6-1.4) 02/15/21 Est Cr Clr Drug Dosing 163.8 ml/min 02/15/21 Estimated GFR ( Amer) 119.2 ml/min 02/15/21 Estimated GFR (Non-Af Amer) 102.8 ml/min 02/15/21 BUN/Creatinine Ratio 21.5 (10-20) H 02/15/21 Glu 136 mg/dl (70-99) H 02/15/21 HbA1c 13.2 % (4.5-5.6) H 02/14/21 Ca 8.8 mg/dl (8.5-10.1) 02/15/21 Mg 2.1 mg/dl (1.8-2.4) 02/15/21 Total Bilirubin 1.0 mg/dl (0.2-1) 02/14/21 AST 18 U/L (15-37) 02/14/21 ALT 13 (12-78) 02/14/21 Alkaline Phosphatase 161 U/L (45-117) H 02/14/21 Total Protein 6.1 gm/dl (6.4-8.2) L 02/14/21 Albumin 2.2 gm/dl (3.4-5.0) L 02/14/21 Globulin 3.9 gm/dl (2.5-4.0) 02/14/21 Albumin/Globulin Ratio 0.6 (0.9-2) L 02/14/21 TSH 1.750 uIu/ml (0.300-4.500) 02/14/21 Urine Color Yellow 02/13/21 Urine Appearance Cloudy (Clear) A 02/13/21 Urine pH 5.0 (4.5-7.5) 02/13/21 Urine Specific [place] 1.034 (1.000-1.030) H 02/13/21 Urine Protein Negative (Negative) 02/13/21 Urine Glucose (UA) 3+ (Negative) H 02/13/21 Urine Ketones 3+ (Negative) H 02/13/21 Urine Blood 1+ (Negative) H 02/13/21 Urine Nitrite Negative (Negative) 02/13/21 Urine Bilirubin Negative (Negative) 02/13/21 Urine Urobilinogen Negative (Negative) 02/13/21 Urine Leukocyte Esterase 1+ (Negative) H 02/13/21 Urine WBC (Auto) >30 /hpf (0-5) H 02/13/21 Urine RBC (Auto) 0-4 /hpf (0-4) 02/13/21 U Hyaline Casts (Auto) 1-5 /lpf (0-5) 02/13/21 U Epithelial Cells (Auto) >30 /lpf (0-5) H 02/13/21 Urine Bacteria (Auto) Negative (Negative) 02/13/21 Urine Yeast Budding (None Prsent) A 02/13/21 PG Care Time/CCT Total # of Minutes Spent Total Time Spent: 60 Total Time Spent with Patient: Total time spent is greater than 50% in coordination of care (as documented) at patient's floor/unit and/or counseling patient: Coding Level of Care Code 56508 Subseq Hosp Care Lvl 3 Diagnoses Ambulatory dysfunction R26.2 Bradycardia R00.1 Chronic anticoagulation Z79.01 Complete heart block I44.2 Coronary artery disease I25.10 DM (diabetes mellitus), type 2, uncontrolled w/neurologic complication E11.49; E11.65 Factor V Leiden mutation D68.51 Gastroesophageal reflux disease K21.9 Hematuria R31.9 Hypercholesterolemia E78.00 Hyperglobulinemia R77.1 Hypertension I10 Morbid obesity E66.01 CHRISTIANO (obstructive sleep apnea) G47.33 Supratherapeutic INR R79.1 Vitamin D deficiency E55.9 Hypoalbuminemia E88.09
[2021-02-15] MEDS: LACTATED RINGER'S 1,000 ML IV SCH (11:20)
--- NOTE | 2021-02-15 11:43 | XCELERA ---
[id number]
[2021-02-15] MEDS ORDERED: INSULIN GLARGINE SOLOSTAR 100 UNITS/ML 3 ML PEN SC SCH ×2 (12:00→21:00)
--- NOTE | 2021-02-15 13:16 | Pharmacy Report ---
Pharmacy Glycemic Short Note 2 - Date of Service February 15, 2021 - Glycemic Short BSG Results (Last 24 hours): 02/14/21 02/14/21 02/15/21 16:39 20:30 07:47 Glucose POC Glucose 282 H 194 H 126 H 02/15/21 02/15/21 08:24 11:48 Glucose 136 H POC Glucose 218 H OUTPATIENT ANTIDIABETIC REGIMEN: * Metformin 1000 mg PO BID with meals * Regular insulin SS * HbA1c: 13.2% (02/14/21) ASSESSMENT: 02/15 * BSGs poorly controlled yesterday, ranging 157-282 mg/dL * Received 79 units of insulin, 35 units of Lantus and 44 units of prandial/correctional Novolog * Patient was originally NPO after midnight today, but pacemaker insertion rescheduled to tomorrow * This led to late breakfast tray, no Novolog given - won't overreact to elevated lunchtime BSG * Plan to split Lantus BID today and continue tightened Novolog parameters from yesterday 02/14 * Patient received total 43 units of insulin yesterday; 35 units basal + 8 units bolus. * On admission, BSG was 485 mg/dl yesterday evening. BSG trended down to 235 mg/dl by midnight after basal 35 units and bolus of 4 units. * Fasting BSG today was 157 mg/dl. Ordered basal insulin 30-35 units scale based on BSG at HS tonight. * Pre-lunch BSG trended up to 227 mg/dl. Novolog parameters tightened slightly with lunch. PLAN FOR INPATIENT GLYCEMIC CONTROL: * Hold outpatient oral diabetes medications * Basal insulin * Lantus 17 units SC BID * Reassess in AM * Bolus insulin * NovoLog per scale ACHS or Q6hrs while NPO * Goal Range: Low 110 mg/dL - High 140 mg/dL * Correction Factor: 15 mg/dL/unit * Nutritional / Prandial insulin per carb ratio of 1 unit per 5 grams CHO consumed PLAN FOR DISCHARGE: * HbA1c of 13.2% suggests very poor outpatient glycemic control * Patient will likely benefit from SC basal/bolus regimen * TBD
[2021-02-16] MEDS ORDERED: CLINDAMYCIN 600 MG/54 ML BAG IV SCH (06:00)
[2021-02-16 07:56] LABS: Basophils # (auto) 0.03 K/uL (0-0.2); Basophils % (auto) 0.4 %; Eosinophils # (auto) 0.49 K/uL (0-0.5); Eosinophils % (auto) 6.8 %; Hematocrit (blood only) 33.1 % (42-52); Immature Granulocytes # (auto) 0.15 K/uL (0.00-0.02); Immature Granulocytes % (auto) 2.1 %; Lymphocytes # (auto) 1.35 K/uL (1.2-3.4); Lymphocytes % (auto) 18.6 %; Mean Corpuscular Hemoglobin 29.1 pg (25-34); Mean Corpuscular Hgb Conc 33.2 g/dL (32-36); Mean Corpuscular Volume 87.6 fL (80-100); Mean Platelet Volume 10.8 fL (7.4-10.4); Monocytes # (auto) 0.91 K/uL (0.11-0.59); Monocytes % (auto) 12.6 %; Neutrophils # (auto) 4.31 K/uL (1.4-6.5); Neutrophils % (auto) 59.5 %; Platelet Count 339 K/uL (130-400); RDW Coefficient of Variation 15.1 % (11.5-14.5); RDW Standard Deviation 46.9 fL (36.4-46.3); Red Blood Count 3.78 M/uL (4.7-6.1); White Blood Count 7.24 K/uL (4.8-10.8)
[2021-02-16 08:05] LABS: INR 1.3 (0.9-1.1); Prothrombin Time 12.9 Seconds (9.0-12.0)
--- NOTE | 2021-02-16 08:12 | Hospitalist Progress Note ---
Date of Service February 16, 2021 Assessment & Plan (1) Ambulatory dysfunction: (2) Bradycardia: (3) Chronic anticoagulation: (4) Complete heart block: (5) Coronary artery disease: (6) DM (diabetes mellitus), type 2, uncontrolled w/neurologic complication: (7) Factor V Leiden mutation: (8) Gastroesophageal reflux disease: (9) Hematuria: (10) Hypercholesterolemia: (11) Hypertension: (12) Morbid obesity: (13) CHRISTIANO (obstructive sleep apnea): (14) Supratherapeutic INR: (15) Vitamin D deficiency: (16) Candiduria: Plan: Waylon Dodson is a 65-year-old male admitted 02/13/21 with hematuria 2/2 supratherapeutic INR (>10.7 on arrival). INR normalized with IV vitamin K administration & hematuria subsequently resolved. Noted to have sinus bradycardia with 1. Gross hematuriadue to warfarin therapy - RESOLVED Secondary to supratherapeutic INR from warfarin. CT A/P 02/13/21 without nephrolithiasis or renal lesions. INR now normalized, hematuria resolved per patient (I have not seen urine yet to confirm) 2. Supratherapeutic INR - RESOLVED Due to nonadherence with INR monitoring (hadn't checked in months - limited mobility prevents him from getting to visits) Chronic home warfarin 20mg daily. INR >10.7 on admission. Normalized s/p IV VitK. 3. Chronic anticoagulation Per PCP Dr Nevarez: Heterozygote Factor 5 Leiden mutation, history of DVT-patient seen by Dr. Junior from Hematology/Oncology in the past. Single episode of DVT with history of heterozygous factor 5 not specifically an indication to continue long-term anticoagulation but given patient's history of DVT, he terozygous factor 5, chronic venous stasis, obesity and limited mobility decision at that time was made to continue long-term anticoagulation. Given patient's limitations in ability to f/u for INR monitoring, ongoing warfarin risk likely greater than benefit. Poor DOAC candidate due to BMI 45 & also reported financial barriers (e.g. uses OTC insulin due to cost). Could try to nina check & see if insurance would cover. If finances don't prohibit DOAC use, may be worth a trial as only risk in excessive BMI is underdosing. 4. Heart block History of varying degrees of heart block in the past. Previous outpatient EP referral, patient never followed up. High-grade heart block 2019. EKGs this admission w/ complete block, ventricular escape rhythm, RBBB Echo 02/15/21 ejection fraction 50-55%, mild concentric LVH, RV pressure/volume overload with moderately dilated RV and inferior cava dilated. - Electrophysiology pacemaker placement today. - Periprocedural clindamycin ppx ordered by cardiology 5. Candiduria Presented with hematuria due to above, also endorsing slight burning associated with hematuria, raising concern for UTI vs dysuria 2/2 hematuria. Difficult to discern. Admission UA w/ many WBC, budding yeast, abd blood although also many squam epi cells suggesting not a clean catch/contamination Urine culture w/ >3 bacterial organisms, malia albicans/dubliniensis. Again, given multiple luis enrique + malia on culture as well as squam epis on UA + morbid obesity w/ large pannus - suspect this represents skin luis enrique/contaminated specimen S/p 1 dose Ctx in ED - hives. No further antibiotics indicated. Fluconazole 100mg given 02/15 - Stop fluconazole given that even if treating as simple cystitis would require 2 week course & I suspect this is not indicated - Repeat UA (clean catch w/ RN assistance) - If candiduria persists on repeat UA or dysuria recurs, resume fluconazole 100mg daily for full 2 week course. 6. Anemia 2/2 Blood loss in in s/o supratherapeutic INR and hematuria Stabilized Monitor QOD 7. Diabetes mellitus Poorly controlled. A1c 13.2% Pharmacy consult to help manage diabetes. Insulin glargine: increase from 17U BID to 22U BID Insulin aspart: continue SSI AC/HS per pharmacy primary special educator consultation Home Metformin on hold Patient will need insulin on discharge. Of note, in the past he used [id number] insulin because it was cheaper than getting a prescription. 8. HLD - H/o CAD per chart but no objective evidence to support this (no LHC, myocardial perfusion scan 2016 w/ no inducible ischemia & fixed ant apical/anteroseptal perfusion defect suspected due to artifact given preserved wall motion) - LDL at goal <70 - Continue home atorvastatin 20mg daily 9. Vitamin-D deficiency VitD 7.3 - Reinitiate 50,000U weekly x 12k weeks then 2000U daily thereafter 10 . Hypertension, HFpEF TTE 02/15/21: LVEF 50-55%, mild concentric LVH, RV pressure/volume overload with moderately dilated RV and inferior cava dilated. - Continue home lisinopril 10mg daily & furosemide 80mg PO qAM Obstructive sleep apnea- continue BiPAP qhs Morbid obesity-chronic problem for the patient. TSH normal February 2021. History of chronic venous stasis with cellulitis of lower extremities-currently no evidence of infection. Diuresis as above + elevation + compression as tolerated DVT prophylaxis- INR normalized. Will plan to start DOAC or enoxaparin ppx tomorrow s/p PPM today. Diet- NPO for PPM placement today Code status - Full Disposition- TBD, not yet medically ready. Came from home with no HHC. History of gait dysfunction. PT and OT consults. Admission and Anticipated Discharge Date Admission Date: February 13, 2021 Imani Dodson is a 65-year-old male admitted 02/13/21 with hematuria 2/2 supratherapeutic INR (>10.7 on arrival). INR normalized with IV vitamin K administration & hematuria subsequently resolved. His medical history is notable for factor 5 Leiden mutation (chronically anticoagulated with warfarin), poorly controlled T2DM (A1c 13.2%), hyperlipidemia & CAD, heart block, HTN, history of cellulitis of the legs, GERD, obstructive sleep apnea (BiPAP), gait disturbance, fatty liver, morbid obesity, and hyperglobulinemia. Today ongoing bradycardia w/ HR in 40-50s. sinus geno w/ 2' & 3' block on telemetry. Normotensive Afebrile RA. AM labs w/ stable anemia Hgb 11. INR 1.3. RFP unremarkable Glucose persistently elevated 130s AM fasting yesterday then 20s throughout day. AM fasting 239 today. Feels well. Reports last urination overnight nonbloody. No dysuria. L knee pain stable. Review of Systems Review of Systems: No FELIX LH CP SOB Abd pain NVDC no blood in stools. Stable LE edema Physical Exam Physical Exam: General: Well appearing, lying in bed comfortably. CV: Bradycardic rate, regular rhythm. No murmurs. Resp: Breathing comfortably on room air. Lungs clear to auscultation bilaterally. No wheezes, crackles, or rhonchi Abd: Soft, nontender, obese, no bruising Ext: Warm, well perfused. 1+ pitting edema of b/l LE. R hand notably swollen no erythema no discomfort. L knee hematoma, slightly TTP, able to move w/o significant discomfort. : No lin Results & Data Results & Data ([facility]) Vital Signs (Past 12 Hours) Vital Signs Temp Pulse Pulse Resp BP BP Pulse Ox 02/16/21 02:16 98.4 F 46 L 18 119/65 95 02/15/21 22:44 98.8 F 57 L 18 146/62 H 100 02/15/21 22:41 58 L PG Care Time/CCT Total # of Minutes Spent Total Time Spent with Patient: Total time spent is greater than 50% in coordination of care (as documented) at patient's floor/unit and/or counseling patient: Coding Level of Care Code 98563 Subseq Hosp Care Lvl 3 Diagnoses Ambulatory dysfunction R26.2 Bradycardia R00.1 Chronic anticoagulation Z79.01 Complete heart block I44.2 Coronary artery disease I25.10 DM (diabetes mellitus), type 2, uncontrolled w/neurologic complication E11.49; E11.65 Factor V Leiden mutation D68.51 Gastroesophageal reflux disease K21.9 Hematuria R31.9 Hypercholesterolemia E78.00 Hypertension I10 Morbid obesity E66.01 CHRISTIANO (obstructive sleep apnea) G47.33 Supratherapeutic INR R79.1 Vitamin D deficiency E55.9 Candiduria B37.49
[2021-02-16 08:34] LABS: Calcium 8.4 mg/dl (8.5-10.1); Creatinine Clr Calc Pharmacy 164.9 ml/min; Est GFR (African American) 117.7 ml/min; Est GFR (Non-African American) 101.5 ml/min; Potassium 3.7 mmol/L (3.5-5.1)
[2021-02-16 08:39] LABS: Prealbumin 7.4 mg/dl (20-40)
--- NOTE | 2021-02-16 08:48 | Cardiology Progress Note ---
Date of Service February 16, 2021 Assessment & Plan (1) Complete heart block: (2) Chronic anticoagulation: Plan: 1. He has high-grade and complete heart block, he has had some degree of heart block since at least 2019 and it may have progressed. It almost certainly i nterferes with his exercise ability which is quite limited now and I suspect would improve with the pacemaker implantation. He is agreeable to pacemaker implantation this morning. I reviewed the indications, procedure, risks alternatives with him and obtained informed consent for the procedure. I also discussed conscious sedation with him and he is agreeable and consent was obtained. 2. Chronic anticoagulation: He is on warfarin for factor V Leiden, he tells me that since he is on the second floor he has trouble getting out to get INR's and is not consistent about getting them. This is quite risky, I would strongly consider one of the newer agents as an anticoagulant in the future. For now his INR is corrected and should not be an issue for surgery today. Admission and Anticipated Discharge Date Admission Date: February 13, 2021 Subjective He is feeling well this morning, he has no specific cardiovascular complaints. He is in bed at the time of my evaluation. Physical Exam Physical Exam: Constitutional: Alert, cooperative and in no distress. He is obese. HEENT: Unremarkable Neck: No jugular venous distention, carotid pulses are normal and equal bilaterally without bruits. Pulmonary: Clear to auscultation bilaterally. Cardiac: Regular slow rhythm with no murmur, gallop or rub. Abdomen: Soft, nontender with normal bowel sounds. Extremities: No edema. Distal pulses intact. Neurologic: No focal findings. Gait is steady. Skin: No rash or petechiae. Large ecchymosis on his left knee from a week or two ago. Results & Data ([facility]) Vital Signs (Past 12 Hours) Vital Signs Temp Pulse Pulse Resp BP BP Pulse Ox 02/16/21 08:13 36.6 C 48 L 20 118/55 L 96 02/16/21 02:16 36.9 C 46 L 18 119/65 95 02/15/21 22:44 37.1 C 57 L 18 146/62 H 100 02/15/21 22:41 58 L Laboratory Results Coagulation 02/15/21 02/16/21 Range/Units 08:24 07:14 PT 12.9 H 12.9 H (9.0-12.0) Seconds Lipids 02/16/21 Range/Units 07:14 Triglycerides 125 (0-150) mg/dl Cholesterol 125 (0-200) mg/dl HDL Cholesterol 40 mg/dl Cholesterol/HDL Ratio 3 CBC 02/16/21 Range/Units 07:14 WBC 7.24 (4.8-10.8) K/uL RBC 3.78 L (4.7-6.1) M/uL Hgb 11.0 L (14.0-18.0) g/dL Hct 33.1 L (42-52) % Plt Count 339 (130-400) K/uL Neut # (Auto) 4.31 (1.4-6.5) K/uL Lymph # (Auto) 1.35 (1.2-3.4) K/uL [place] # (Auto) 0.91 H (0.11-0.59) K/uL Eos # (Auto) 0.49 (0-0.5) K/uL Baso # (Auto) 0.03 (0-0.2) K/uL Comprehensive Metabolic Panel 02/15/21 02/16/21 Range/Units 08:24 07:14 Sodium 137 135 L (136-145) mmol/L Potassium 3.7 3.7 (3.5-5.1) mmol/L Chloride 101 100 (98-107) mmol/L Carbon Dioxide 28 28 (21-32) mmol/L BUN 14 18 (7-18) mg/dl Creatinine 0.65 0.67 (0.6-1.4) mg/dl Glucose 136 H 225 H (70-99) mg/dl Calcium 8.8 8.4 L (8.5-10.1) mg/dl Intake and Output 02/15/21 02/16/21 02/16/21 22:59 06:59 14:59 Intake Total 100 / 680 Output Total 150 / 1575 525 / 1575 Balance -50 / -895 -525 / -895 Intake: Oral 100 / 680 Output: Urine 150 / 975 525 / 975 Other: Other Intake Source NPO # Unmeasured Voids 1 1 Weight 152.2 kg Weight Measurement Method Built in [facility] Diagnostic Findings Telemetry: Continued high-grade and complete heart block with heart rates typically in the 40s. An echocardiogram done February 15, 2021 was technically difficult but the left ventricle is mildly dilated with normal left ventricular systolic function and ejection fraction of 55 to 60%. He has mild concentric left ventricular hypertrophy. No significant valvular disease. PG Care Time/CCT Total # of Minutes Spent Total Time Spent with Patient: Total time spent is greater than 50% in coordination of care (as documented) at patient's floor/unit and/or counseling patient: Coding Level of Care Code 50188 Subseq Hosp Care Lvl 2 Diagnoses Complete heart block I44.2 Chronic anticoagulation Z79.01
[2021-02-16] MEDS: FAMOTIDINE 20 MG in SYRINGE 3 ML IV SCH (08:59)
[2021-02-16] MEDS: INSULIN ASPART PER UNIT SC SCH ×4 (09:00→21:23)
[2021-02-16] MEDS ORDERED: INSULIN GLARGINE SOLOSTAR 100 UNITS/ML 3 ML PEN SC SCH ×2 (09:00)
[2021-02-16] MEDS: NYSTATIN POWDER 15GM BTL EXT SCH ×3 (09:00→21:25)
[2021-02-16] MEDS ORDERED: VANCOMYCIN HCL 1000MG/20ML VIAL ONE (10:46)
[2021-02-16] MEDS ORDERED: LIDOCAINE 1% LOCAL 20 ML VIAL ONE (10:46)
[2021-02-16] MEDS ORDERED: BACITRACIN OINT 0.9 GM PKT ONE (10:47)
[2021-02-16] MEDS ORDERED: WATER, STERILE FOR INJ 10 ML VIAL ONE (10:47)
[2021-02-16] MEDS ORDERED: MIDAZOLAM HCL 5 MG/ML 1 ML VIAL ONE ×2 (11:41→13:11)
[2021-02-16] MEDS ORDERED: fentaNYL citrate 100 MCG/2 ML VIAL ONE ×2 (11:41→12:44)
--- NOTE | 2021-02-16 11:52 | Pre Anesthesia Assessment ---
Date of Service February 16, 2021 Pre Sedation Assessment Vital Signs Temp Pulse Pulse Resp BP BP Pulse Ox 02/16/21 11:20 36.9 C 43 L 18 116/57 L 97 02/16/21 08:13 36.6 C 48 L 20 118/55 L 96 02/16/21 02:16 36.9 C 46 L 18 119/65 95 02/15/21 22:44 37.1 C 57 L 18 146/62 H 100 02/15/21 22:41 58 L 02/15/21 19:36 36.9 C 53 L 18 101/55 L 99 02/15/21 16:00 48 L 02/15/21 14:37 36.5 C 43 L 20 100/45 L 95 Cardiovascular + regular rate and + bradycardic Respiratory normal respiratory effort, lungs clear to auscultation Pre-Sedation Airway Assessment Smoking Status: Never smoker Mallampati Class: II ASA: ASA3 NPO Status Date of Last Intake of Fluids: 02/15/21 Date of Last Intake of Solid Food: 02/15/21 Procedure Planning Contraindications for Sedation: none Current Medications Reviewed: Yes Notes The planned sedation has been discussed with the patient. Informed Consent was obtained. I have identified the patient, determined the appropriateness of sedation and have assessed the patient immediately prior to the procedure. All medicine(s) and interventions are by my order.
[2021-02-16] MEDS: FLUCONAZOLE 100 MG TAB PO SCH (13:02)
[2021-02-16] MEDS ORDERED: METOPROLOL TARTRATE 1 MG/ML VIAL IV ONE (13:48)
[2021-02-16] MEDS ORDERED: ACETAMINOPHEN W/CODEINE #3 1 TAB PO PRN (13:57)
--- NOTE | 2021-02-16 13:57 | Electrophysiology Report ---
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 Dye was injected the left arm IV site to opacify the left subclavian vein. The subclavian vein was identified and found to be free of obstruction. The left prepectoral region was anesthetized with 1% lidocaine local anesthetic and left axillary venipuncture was performed by percutaneous technique and a guidewire placed through the left subclavian vein into the superior vena cava. The area was further infiltrated with 1% lidocaine local anesthetic and a 5 cm incision was made parallel to the left clavicle and 2 cm below it and carried down to the anterior pectoralis fascia. A pacemaker pocket was formed by blunt dissection anterior to the pectoralis fascia and a vancomycin-soaked sponge was placed in the pocket. The left axillary and subclavian vein were quite tortuous and various introducers were used to navigate the structure. Ultimately a 9 Cymro long Medtronic lead introducer was placed over the guidewire into the left subclavian vein, the dilator and guidewire were removed and a bipolar active fixation steroid tipped ventricular lead was advanced through the introducer into the superior vena cava. A guidewire was placed through the introducer and the introducer was stripped from the lead and guidewire. An 8 Cymro long Medtronic lead introducer was placed over the guidewire into the left subclavian vein, the dilator and guidewire were removed and a bipolar active fixation steroid tipped atrial lead was advanced through the introducer into the superior vena cava. A guidewire was placed back through the introducer and the introducer was stripped from the lead and guidewire. Using a curved stylette the ventricular lead was advanced through the right ventricular outflow tract into the pulmonary artery and then using a straight stylette was positioned in the right ventricular apex. The screw was extended fixing the lead in position. Pacing and sensing thresholds were evaluated in bipolar configuration and are recorded on the implant data sheet. Diaphragmatic pacing was evaluated at maximum output as noted on the data sheet. Using a curved stylette the atrial lead was positioned in the region of the atrial appendage and the screw extended fixing the lead in position. Pacing and sensing thresholds were evaluated in bipolar configuration and are recorded on the implant data sheet. Diaphragmatic pacing was evaluated at maximum output as noted on the data sheet. Once the leads were in position they were attached to the anterior pectoralis fascia using 2 sutures of 2-0 silk around each lead collar. The vancomycin soaked sponge was removed from the pocket, hemostasis was obtained, the pacemaker was attached to the leads and placed in the pocket with the leads coiled beneath it. The incision was closed with a running double subcutaneous c losure of 3-0 Vicryl absorbable suture, followed by running subcuticular skin closure of 4-0 Vicryl absorbable suture. Bacitracin ointment was placed on the incision and a dressing applied. [facility] Electrophysiology codes Indication for Procedure (1) Complete heart block: Pacing Procedure 1: Pacin Insert/Replace Pacer A & V Miscellaneous Procedures Procedure 1: EP Miscellaneous: 28723 Contrast injection for venography Procedure 2: EP Miscellaneous: 87810-71 Vengraphy, extremity PG Moderate Sedation Codes Moderate Sedation Codes Procedure 1: Sedation/Anesthesia: 09344 Mod Sedation by the same physician;Init15 Min Child Age 5 & Up Procedure 2: Sedation/Anesthesia: 44366 Mod Sedation by the same physician; Ea [id number] Minutes
[2021-02-16] MEDS: LACTATED RINGER'S 1,000 ML IV SCH (14:05)
--- NOTE | 2021-02-16 15:15 | Post Anesthesia Assessment ---
Date of Service February 16, 2021 Post Sedation Assessment Vital Signs Temp Pulse Pulse Resp BP BP Pulse Ox 02/16/21 14:26 36.5 C 71 20 143/83 H 96 02/16/21 14:15 102 H 18 124/88 93 02/16/21 14:00 109 H 18 131/74 93 02/16/21 13:57 36.9 C 73 19 135/80 96 02/16/21 11:20 36.9 C 43 L 18 116/57 L 97 02/16/21 08:13 36.6 C 48 L 20 118/55 L 96 02/16/21 02:16 36.9 C 46 L 18 119/65 95 02/15/21 22:44 37.1 C 57 L 18 146/62 H 100 02/15/21 22:41 58 L 02/15/21 19:36 36.9 C 53 L 18 101/55 L 99 02/15/21 16:00 48 L Recovery Score Activity: Moves 4 extremities Respiration: Deep Breath/Cough Circulation: +/-20% PreAnes Value Consciousness: Fully Awake Oxygen Saturation: > 92% On Room Air Post Anesthesia Score: 10 Discharge Sedation Level of Care: Fast Track Phase II Post Sedation Plan On clinical assessment, the patient appears to have tolerated the sedation without complications. Patient is recovering as anticipated. Patient will continue to be monitored by nursing and may be discharged when sedation discharge criteria are met per below protocol. Upon Completions of procedure up to 15 minutes continue every 5 minute vital signs and the P.A.R. score; then discharge to a Phase I or Fast Track to Phase II per the following guidelines: * Discharge Patient to appropriate Phase II area if PAR is 8 or greater or return to pre- procedure baseline. The post - procedure orders will be as directed. * If PAR score is less than 8 or not return to pre-procedure baseline then patient will follow Phase I monitoring till PAR is reached for Phase II. The Phase I may be done in procedure room or may call to secure a Phase I area. * If naloxone or flumazenil are used for reversal, hold in Phase I for continued monitoring from when last reversal dose was given for a minimum of 60 minutes or longer pending the nurse and/or physician discretion of patient condition before discharge to Phase II. Please call the Sedation Physician to re-evaluate and complete post-note for discharge to Phase II area. Do NOT discharge from procedure sedation or Phase 1 until post- sedation evaluation note is complete by procedure /sedation MD Sedation Discharge Instructions to be given to the patient at discharge to home.
[2021-02-16] MEDS: lisinopril 10 MG TAB PO SCH (15:50)
[2021-02-16] MEDS: FUROSEMIDE 80 MG TAB PO SCH (15:50)
[2021-02-16] MEDS ORDERED: ERGOCALCIFEROL 50,000 UNITS 1250 MCG CAP PO SCH (16:00)
[2021-02-16 16:30] LABS: Thyroid Stimulating Hormone 2.05 uIu/ml (0.300-4.500)
[2021-02-16 18:29] LABS: Appearance Urine Clear (Clear); Bacteria Urine Automated Negative (Negative); Bilirubin Urine Negative (Negative); Blood Urine 1+ (Negative); Cast Urine Automated 0 /lpf (0-5); Color Urine Yellow; Epithelial Cell Urine Auto >30 /lpf (0-5); Glucose Urine UA 2+ (Negative); Ketones Urine Negative (Negative); Leukocyte Esterase Urine 1+ (Negative); Nitrite Urine Negative (Negative); Protein Urine Negative (Negative); Specific Gravity Urine 1.015 (1.000-1.030); Urobilinogen Urine Negative (Negative)
[2021-02-16] MEDS: oxyCODONE HCL IR 5 MG TAB (IMMEDIATE RELEASE) PO PRN (20:09)
[2021-02-16] MEDS: METOPROLOL TARTRATE 50 MG TAB PO SCH (20:10)
[2021-02-16] MEDS: INSULIN GLARGINE SOLOSTAR 100 UNITS/ML 3 ML PEN SC SCH (21:25)
--- NOTE | 2021-02-17 07:48 | Hospitalist Progress Note ---
Date of Service February 17, 2021 Assessment & Plan (1) Ambulatory dysfunction: (2) Bradycardia: (3) Chronic anticoagulation: (4) Complete heart block: (5) Coronary artery disease: (6) DM (diabetes mellitus), type 2, uncontrolled w/neurologic complication: (7) Factor V Leiden mutation: (8) Gastroesophageal reflux disease: (9) Hematuria: (10) Hypercholesterolemia: (11) Hypertension: (12) Morbid obesity: (13) CHRISTIANO (obstructive sleep apnea): (14) Supratherapeutic INR: (15) Vitamin D deficiency: (16) Candiduria: Plan: Waylon Dodson is a 65-year-old male admitted 02/13/21 with hematuria 2/2 supratherapeutic INR (>10.7 on arrival). INR normalized with IV vitamin K administration & hematuria subsequently resolved. Noted to have sinus bradycardia with complete heart block & underwent PPM placement 02/16/21. 1. Gross hematuriadue to warfarin therapy - RESOLVED Secondary to supratherapeutic INR from warfarin. CT A/P 02/13/21 without nephrolithiasis or renal lesions. INR now normalized, hematuria resolved. 2. Supratherapeutic INR - RESOLVED Due to nonadherence with INR monitoring (hadn't checked in months - limited mobility prevents him from getting to visits) Chronic home warfarin 20mg daily. INR >10.7 on admission. Normalized s/p IV VitK. INR not checked w/ AM labs today. No need to redraw for this given INR 1.3 yesterday & no warfarin in 4 days. Not planning to resume warfarin. 3. Chronic anticoagulation Indication: Heterozygous Factor 5 Leiden mutation, history of large RLE DVT 2017. Seen by Dr. Junior in Hem/Onc 2017 who felt AC warranted due to multiple VTE risk factors (FVL, obesity, limited mobility, chronic venous stasis) but noted that indefinite anticoagulation may not be indicated / could consider stopping in future if mobility improved. Given patient's limitations in ability to f/u for INR monitoring, ongoing warfarin risk likely greater than benefit. Suboptimal DOAC candidate due to BMI 45 & also reported financial barriers (e.g. uses OTC insulin due to cost). Meraz check at his outpatient [facility] pharmacy notes $47 for 30d fill of apixaban 5mg BID. Per Mr Shawley this is doable. Start apixaban 5mg BID, understanding lack of evidence in excessive BMI but noting risk is underdosing and this would at least provide him with some protection from recurrent VTE without need for ongoing monitoring/dose adjustment. Will collaborated w/ Dr Gallardo on timing of initiation given s/p PPM placement yesterday 4. High grade heart block s/p PPM 02/16/21 History of varying degrees of heart block in the past. High-grade heart block 2018. EKGs this admission w/ complete block, ventricular escape rhythm, RBBB S/p PPM placement 02/16/21 w/ Dr Gallardo. Pacing well. 5. Candiduria Presented with hematuria due to above, also endorsing slight burning associated with hematuria, raising concern for UTI vs dysuria 2/2 hematuria. Difficult to discern. Admission UA w/ many WBC, budding yeast, blood although also many squam epi cells suggesting not a clean catch/contamination Urine culture w/ >3 bacterial organisms, malia albicans/dubliniensis. Initially suspected skin luis enrique/contaminated specimen but repeat UA clean catch w/ RN assistance w/ persistent candiduria and now reporting persistent dysuria S/p 1 dose Ctx in ED - hives. No further antibiotics indicated. Fluconazole 100mg given 02/15. - Fluconazole 200mg/day x 14d for malia cystitis 6. Anemia 2/2 Blood loss in in s/o supratherapeutic INR and hematuria/L knee hematoma Stabilized Monitor QOD 7. Diabetes mellitus Poorly controlled. A1c 13.2% Pharmacy consult to help manage diabetes. Insulin glargine: 22U BID Insulin aspart: continue SSI AC/HS per pharmacy medical educator consultation Home Metformin on hold Patient will need insulin on discharge. Of note, in the past he used [id number] insulin because it was cheaper than getting a prescription. 8. HLD - H/o CAD per chart but no objective evidence to support this (no LHC, myocardial perfusion scan 2015 w/ no inducible ischemia & fixed ant apical/anteroseptal perfusion defect suspected due to artifact given preserved wall motion) - removed this from chart documentation - LDL at goal <70 - Continue home atorvastatin 20mg daily 9. Vitamin-D deficiency VitD 7.3 - 50,000U weekly x 12 weeks then 2000U daily thereafter 10 . Hypertension, HFpEF TTE 02/15/21: LVEF 50-55%, mild concentric LVH, RV pressure/volume overload with moderately dilated RV and inferior cava dilated. Stable mild LE edema w/o evidence of central volume overload - Continue home lisinopril 10mg daily & furosemide 80mg PO qAM 11. 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 Offered alternative agents for pain control which patient declined today. Ice PRN. Mobility exercises. 12. Tobacco use - chewing tobacco use. encouraged cessation. he declines NRT gum. Obstructive sleep apnea- continue BiPAP qhs Morbid obesity - Chronic. TSH normal 02/2021. History of chronic venous stasis with cellulitis of lower extremities - currently no evidence of infection. Continue diuresis as above + elevation + compression as tolerated DVT prophylaxis- INR normalized. Will plan to start apixaban today if ok w/ Dr Gallardo. Diet- Carb controlled Code status - Full Disposition- TBD, not yet medically ready. Came from home with no C. History of gait dysfunction. Likely return home +/- [facility] tomorrow. PT and OT to evaluate today. Admission and Anticipated Discharge Date Admission Date: February 13, 2021 Imani Dodson is a 65-year-old male admitted 02/13/21 with hematuria 2/2 supratherapeutic INR (>10.7 on arrival) on coumadin due to nonadherence with outpatient monitoring. INR normalized with IV vitamin K administration & hematuria subsequently resolved. His medical history is notable for heterozygous factor 5 Leiden mutation w/ large RLE DVT 2016 (on chronic warfarin w/ poor/no outpatient INR f/u), poorly controlled T2DM (A1c 13.2%), hyperlipidemia & CAD, heart block, HTN, history of cellulitis of the legs, GERD, obstructive sleep apnea (BiPAP), gait disturbance, fatty liver, and morbid obesity. Underwent successful dual chamber PPM placement yesterday Today HR 70-80s, paced on telemetry. Normotensive Afebrile RA. AM labs w/ stable/slowly improving anemia Hgb 11.4 No INR today, 1.3 yesterday. RFP unremarkable Repeat UA yesterday persistent glucosuria, 1+ hematuria, no bacteria, persistent budding yeast Glucose yesterday 160-240s. Today AM fasting 188 (relatively stable from PM). TDD insulin yesterday (69U: 39U glargine + 30U aspart), note was also NPO part of day for PPM placement. PostPPM CXR w/ PPM in place otherwise unremarkable. PostPPM EKG being obtained now. Feels generally ok today. Some discomfort over PPM pocket. Asking if he can have an extra dose of oxycodone daily when going home due to L knee discomfort. Not interested in alternative agents for pain control. Notes discomfort worse recently due to hematoma. Urine nonbloody. Notes some persistent dysuria Unable to have BM this morning Review of Systems Review of Systems: No FELIX LH CP (other than at PPM pocket) SOB Abd pain NV. +Constipation. Stable LE edema Physical Exam Physical Exam: General: Well appearing, sitting in chair comfortably, chewing tobacco CV: Normal rate, regular rhythm. No murmurs. Resp: Breathing comfortably on room air. Lungs clear to auscultation bilaterally. No wheezes, crackles, or rhonchi Abd: Soft, nontender, obese, no bruising Ext: Warm, well perfused. 1+ pitting edema of b/l LE. R hand swollen no erythema no discomfort. L knee hematoma, slightly TTP, able to bend. : No lin Results & Data Results & Data ([facility]) Vital Signs (Past 12 Hours) Vital Signs Temp Pulse Pulse Resp BP Pulse Ox 02/17/21 07:32 72 02/17/21 03:33 72 02/17/21 03:00 98.2 F 70 18 139/71 94 02/16/21 23:00 98.1 F 66 19 145/90 H 98 PG Care Time/CCT Total # of Minutes Spent Total Time Spent with Patient: Total time spent is greater than 50% in coordination of care (as documented) at patient's floor/unit and/or counseling patient: Coding Level of Care Code 93568 Subseq Hosp Care Lvl 3 Diagnoses Ambulatory dysfunction R26.2 Bradycardia R00.1 Chronic anticoagulation Z79.01 Complete heart block I44.2 Coronary artery disease I25.10 DM (diabetes mellitus), type 2, uncontrolled w/neurologic complication E11.49; E11.65 Factor V Leiden mutation D68.51 Gastroesophageal reflux disease K21.9 Hematuria R31.9 Hypercholesterolemia E78.00 Hypertension I10 Morbid obesity E66.01 CHRISTIANO (obstructive sleep apnea) G47.33 Supratherapeutic INR R79.1 Vitamin D deficiency E55.9 Candiduria B37.49
[2021-02-17 07:51] LABS: Basophils # (auto) 0.04 K/uL (0-0.2); Basophils % (auto) 0.5 %; Eosinophils # (auto) 0.54 K/uL (0-0.5); Eosinophils % (auto) 6.8 %; Hematocrit (blood only) 35.4 % (42-52); Hemoglobin 11.4 g/dL (14.0-18.0); Immature Granulocytes # (auto) 0.12 K/uL (0.00-0.02); Immature Granulocytes % (auto) 1.5 %; Lymphocytes # (auto) 1.13 K/uL (1.2-3.4); Lymphocytes % (auto) 14.2 %; Mean Corpuscular Hemoglobin 28.7 pg (25-34); Mean Corpuscular Hgb Conc 32.2 g/dL (32-36); Mean Corpuscular Volume 89.2 fL (80-100); Mean Platelet Volume 10.8 fL (7.4-10.4); Monocytes # (auto) 0.99 K/uL (0.11-0.59); Monocytes % (auto) 12.5 %; Neutrophils # (auto) 5.13 K/uL (1.4-6.5); Neutrophils % (auto) 64.5 %; Platelet Count 354 K/uL (130-400); RDW Coefficient of Variation 15.4 % (11.5-14.5); Red Blood Count 3.97 M/uL (4.7-6.1); White Blood Count 7.95 K/uL (4.8-10.8)
[2021-02-17 08:28] LABS: BUN Creatinine Ratio 20.6 (10-20); Calcium 8.4 mg/dl (8.5-10.1); Est GFR (African American) 120.7 ml/min; Est GFR (Non-African American) 104.1 ml/min; Potassium 3.8 mmol/L (3.5-5.1)
[2021-02-17] MEDS: NYSTATIN POWDER 15GM BTL EXT SCH ×3 (08:30→20:39)
[2021-02-17] MEDS: INSULIN ASPART PER UNIT SC SCH ×4 (08:31→20:42)
[2021-02-17] MEDS: INSULIN GLARGINE SOLOSTAR 100 UNITS/ML 3 ML PEN SC SCH (08:31)
[2021-02-17] MEDS: METOPROLOL TARTRATE 50 MG TAB PO SCH ×2 (08:33→20:39)
[2021-02-17] MEDS: FUROSEMIDE 80 MG TAB PO SCH (08:33)
[2021-02-17] MEDS: lisinopril 10 MG TAB PO SCH (08:33)
[2021-02-17] MEDS: ATORVASTATIN 20 MG TAB PO SCH (08:33)
[2021-02-17] MEDS: MICONAZOLE NITRATE POWDER 43 GM EXT PRN (08:34)
[2021-02-17] MEDS: LACTATED RINGER'S 1,000 ML IV SCH (08:34)
--- NOTE | 2021-02-17 09:27 | Pharmacy Report ---
Pharmacy Glycemic Short Note 2 - Date of Service February 17, 2021 - Glycemic Short BSG Results (Last 24 hours): 02/16/21 02/16/21 02/16/21 11:09 14:29 16:22 Glucose POC Glucose 193 H 204 H 245 H 02/16/21 02/17/21 02/17/21 20:09 07:16 07:20 Glucose 194 H POC Glucose 165 H 188 H OUTPATIENT ANTIDIABETIC REGIMEN: * Metformin 1000 mg PO BID with meals * Novolin N 80 units SC HS * Novolin R 50 units SC qAM * HbA1c: 13.2% (02/14/21) ASSESSMENT: 02/17 * BSGs remain elevated, 239, 193 245, and 165 mg/dL yesterday * Received 69 units of insulin (39 units of which was basal) * POD #1 s/p pacemaker insertion * Plan to increase basal insulin today and tighten Novolog carb coverage * Lunch BSG of 320 mg/dL, patient reportedly ate two breakfasts this morning, but only covered for one of them. Won't overreact to this BSG. 02/15 * BSGs poorly controlled yesterday, ranging 157-282 mg/dL * Received 79 units of insulin, 35 units of Lantus and 44 units of prandial/correctional Novolog * Patient was originally NPO after midnight today, but pacemaker insertion rescheduled to tomorrow * This led to late breakfast tray, no Novolog given - won't overreact to elevated lunchtime BSG * Plan to split Lantus BID today and continue tightened Novolog parameters from yesterday 02/14 * Patient received total 43 units of insulin yesterday; 35 units basal + 8 units bolus. * On admission, BSG was 485 mg/dl yesterday evening. BSG trended down to 235 mg/dl by midnight after basal 35 units and bolus of 4 units. * Fasting BSG today was 157 mg/dl. Ordered basal insulin 30-35 units scale based on BSG at HS tonight. * Pre-lunch BSG trended up to 227 mg/dl. Novolog parameters tightened slightly with lunch. PLAN FOR INPATIENT GLYCEMIC CONTROL: * Hold outpatient oral diabetes medications * Basal insulin - increase * Lantus 22-30 units SC BID * Bolus insulin - tighten carb ratio * NovoLog per scale ACHS or Q6hrs while NPO * Goal Range: Low 110 mg/dL - High 140 mg/dL * Correction Factor: 15 mg/dL/unit * Nutritional / Prandial insulin per carb ratio of 1 unit per 4 grams CHO consumed PLAN FOR DISCHARGE: * HbA1c of 13.2% suggests very poor outpatient glycemic control * Patient's current outpatient regimen is inappropriate - agree with conservation educator that patient would benefit from 70/30 pre-mixed insulin BIDM * At this point, 70/30 pre-mixed insulin 45 units SC with breakfast, 25 units SC with dinner is reasonable for initiation (prioritizing safety) * SMBG at least twice daily (ensuring one fasting BSG in AM) * Ensure prompt outpatient follow-up for further dose titration of insulin * Reasonable to continue metformin at discharge * Discontinue prior outpatient insulin regimen
--- NOTE | 2021-02-17 09:27 | Cardiology Progress Note ---
Date of Service February 17, 2021 Assessment & Plan (1) Status post placement of cardiac pacemaker: Plan: Postop day #1: He is doing well post pacemaker. The site looks good, chest x- ray looks good, device measurements are excellent. He should be stable for discharge from my standpoint. I did put postop recommendations in his discharge and I have arranged for an office visit in 2 days time. That is also in his discharge paperwork. Admission and Anticipated Discharge Date Admission Date: February 13, 2021 Subjective He is feeling well today, no significant incisional discomfort, no shortness of breath or chest discomfort. Physical Exam Physical Exam: The incision is clean and dry with no significant bleeding, no ecchymosis, no significant tenderness. No swelling. Results & Data ([facility]) Vital Signs (Past 12 Hours) Vital Signs Temp Pulse Pulse Resp BP Pulse Ox 02/17/21 07:32 72 02/17/21 07:00 36.9 C 79 18 124/69 96 02/17/21 03:33 72 02/17/21 03:00 36.8 C 70 18 139/71 94 02/16/21 23:00 36.7 C 66 19 145/90 H 98 Laboratory Results CBC 02/17/21 Range/Units 07:16 WBC 7.95 (4.8-10.8) K/uL RBC 3.97 L (4.7-6.1) M/uL Hgb 11.4 L (14.0-18.0) g/dL Hct 35.4 L (42-52) % Plt Count 354 (130-400) K/uL Neut # (Auto) 5.13 (1.4-6.5) K/uL Lymph # (Auto) 1.13 L (1.2-3.4) K/uL [place] # (Auto) 0.99 H (0.11-0.59) K/uL Eos # (Auto) 0.54 H (0-0.5) K/uL Baso # (Auto) 0.04 (0-0.2) K/uL Comprehensive Metabolic Panel 02/17/21 Range/Units 07:16 Sodium 136 (136-145) mmol/L Potassium 3.8 (3.5-5.1) mmol/L Chloride 98 (98-107) mmol/L Carbon Dioxide 32 (21-32) mmol/L BUN 13 (6-23) mg/dl Creatinine 0.63 (0.6-1.4) mg/dl Glucose 194 H (70-99) mg/dl Calcium 8.4 L (8.5-10.1) mg/dl Intake and Output 02/16/21 02/17/21 02/17/21 22:59 06:59 14:59 Intake Total 755.5 / 875.5 120 / 875.5 Output Total 275 / 525 Balance 480.5 / 350.5 120 / 350.5 Intake: IV 505.5 / 505.5 Lactated Ringer's 1,000 ml @ 15 505.5 / 505.5 mls/hr IV .Q24H CORRINA Rx#: [id number] Oral 250 / 370 120 / 370 Output: Urine 275 / 525 Other: # Unmeasured Voids 2 Weight 153.1 kg Weight Measurement Method Built in [facility] Diagnostic Findings Postop ECG: Not yet available Telemetry: Ventricular pacing throughout appropriately Chest x-ray: Good lead position, no pneumothorax Pacemaker evaluation: Excellent pacing and sensing characteristics PG Care Time/CCT Total # of Minutes Spent Total Time Spent with Patient: Total time spent is greater than 50% in coordination of care (as documented) at patient's floor/unit and/or counseling patient: Coding Level of Care Code 94466 Post Operative Follow-Up Diagnoses Status post placement of cardiac pacemaker Z95.0 CPT Codes Dual Lead Pacemaker System - 43466 ([id number])
--- NOTE | 2021-02-17 09:45 | XRay Report ---
XR chest 2V PA/lateral CLINICAL HISTORY: Pacemaker insertion. COMPARISON STUDY: Chest radiograph April 30, 2016. FINDINGS: There is no pneumothorax placement of a dual-lead left subclavian pacemaker. Lead tips proj ect over the expected location of the right atrial appendage and right ventricle. Cardiomegaly is unc hanged. There is no evidence for pulmonary edema. No consolidation is identified. Old right-sided rib fractures are incidentally noted. IMPRESSION: No pneumothorax following placement of a dual-lead left subclavian pacemaker. ACT 112: Negative or not required by law. Electronically signed by: Alton Junior M.D. 02/17/2021 9:44 AM
[2021-02-17] MEDS: FLUCONAZOLE 100 MG TAB PO SCH (10:09)
[2021-02-17] MEDS: SENNA 8.6 MG TAB PO SCH ×2 (11:36→20:38)
[2021-02-17] MEDS ORDERED: INSULIN HUMAN REGULAR PER UNIT 5 UNITS in SYRINGE 4.95 ML IV ONE (11:45)
--- NOTE | 2021-02-17 12:18 | Electrocardiogram Report ---
Test Reason : Blood Pressure : / mmHG Vent. Rate : 070 BPM Atrial Rate : 070 BPM P-R Int : 154 ms QRS Dur : 182 ms QT Int : 478 ms P-R-T Axes : 045 270 078 degrees QTc Int : 516 ms Atrial-sensed ventricular-paced rhythm Abnormal ECG When compared with ECG of 14-FEB-2021 06:47, Electronic ventricular pacemaker has replaced ventricular escape rhythm Vent. rate has increased BY 29 BPM Confirmed by Jesus Manuel Chapman ([id number]) on 02/17/2021 12:17:55 PM Referred By: REFERRED SELF Confirmed By:Jesus Manuel Chapman
[2021-02-17] MEDS: RIVAROXABAN 20 MG TAB PO SCH (17:11)
[2021-02-17] MEDS: oxyCODONE HCL IR 5 MG TAB (IMMEDIATE RELEASE) PO PRN (20:47)
[2021-02-17] MEDS ORDERED: INSULIN GLARGINE SOLOSTAR 100 UNITS/ML 3 ML PEN SC SCH (21:00)
[2021-02-17] MEDS ORDERED: APIXABAN 5 MG TABLET PO SCH (21:00)
--- NOTE | 2021-02-18 07:28 | Discharge Summary ---
Date of Service February 19, 2021 Admission HPI Per Admitting Provider Waylon is a 65-year-old male with a past medical history of type 2 diabetes mellitus, mixed restrictive and obstructive lung disease, diabetic neuropathy, bradycardia, hypertension, hyperglobulinemia, GERD, factor V Leiden on chronic anticoagulation, CAD who presented to the emergency department with hematuria and supratherapeutic INR. Waylon reports 'I'm bleeding doc I got blood in m urine urine and I don't know why." Blood in urine started ~10 days ago. Tiny bit of burning with urination 'not severe just a tiny bit.' L knee is painful, does not recall any trauma. +bruising for about 10 days. Has normal senation in fingers and toes. Denies weakness. Endorses some urinary incontinence, feels like he has little warning and 'can't shut it off and dribble.' Denies having to 'push' to urinate. No FHx of prostate problems, had a prostate exam by PCP and thinks it was normal. Colonoscopy ~7 years ago, normal. Has missed recent INR checks. Has trouble making appointments, reports it is difficult for him to leave his home to get the doctors appointments. Denies vomiting, melena, para blood per rectum, epistaxis, chest pain, chest pressure, shortness of breath, difficulty breathing. FVL on anticoagulation. Denies history of blood clots in legs or lungs. Does not recall why he was checked for FVL. Denies strokes and heart attacks. Family Doc is Dr. Nevarez Medical History: Reviewed. DM. Denies other medical problems. Medications: Reviewed. Allergy to Sulfa. Reports tolerates penicillin fine, no hx of reactions. Surgical History: Reviewed. Hx appendectomy, tonsillectomy. Allergies: Reviewed. Social History: Lives with his sister Peace. Noone sick at home. COVID unvaccinated, would like to get. Uses snuff sporadically x20 years 1 tin per 2 days. Denies alcohol use, no use in several years. Code Status: Surrogate would be his brother Leandro. Full Code. Principal Diagnosis Gross hematuria 2/2 warfarin induced supratherapeutic INR Discharge Exam General: Well appearing, lying in bed comfortably, chewing tobacco CV: Normal rate, regular rhythm. No murmurs. L upper chest PPM site covered w/ dressings C/D/I no erythema or bleeding Resp: Breathing comfortably on room air. Lungs clear to auscultation bilaterally. No wheezes, crackles, or rhonchi Abd: Soft, nontender, obese, no bruising Ext: Warm, well perfused. 1+ pitting edema of b/l LE. R hand swollen no erythema no discomfort. L knee hematoma, slightly TTP, able to bend. : No lin. Scrotal erythema Discharge Data Allergies Allergy/AdvReac Type Severity Reaction Status Date / Time ceftriaxone Allergy Severe Hives Verified 02/13/21 18:12 Sulfa (Sulfonamide Allergy Intermediate HIVES-ITCHY Verified 02/13/21 15:31 Antibiotics) RASH Consultations 02/14/21 15:19 Consult Cardiology Routine 02/15/21 08:05 Consult Cardiac Electrophysiology Routine Procedures Performed Operation Date: 02/16/21 11:00 Actual Procedures p Pacer with A/V Leads (Dual) - Anuel Gallardo MD s Venogram, Unilateral - Anuel Gallardo MD Ordered Studies 02/13/21 14:39 CT abd pelvis wo con Stat 02/16/21 08:16 CL Cath Imgs for PACS use only Routine Diabetes Follow up Diabetes Follow-up Needed for HgbA1c >9% Hospital Course (1) Hematuria: (2) Supratherapeutic INR: (3) Chronic anticoagulation: (4) Factor V Leiden mutation: (5) Acute blood loss anemia: (6) Bradycardia: (7) Complete heart block: (8) Tachycardia: (9) Complicated urinary tract infection: (10) Candiduria: (11) Ambulatory dysfunction: (12) DM (diabetes mellitus), type 2, uncontrolled w/neurologic complication: (13) Gastroesophageal reflux disease: (14) Hypercholesterolemia: (15) Hypertension: (16) Vitamin D deficiency: Waylon Dodson is a 65-year-old male admitted 02/13/21 with hematuria 2/2 supratherapeutic INR (>10.7 on arrival). INR normalized with IV vitamin K administration & hematuria subsequently resolved. Noted to have sinus bradycardia with complete heart block & underwent PPM placement 02/16/21. 1. Gross hematuriadue to warfarin therapy - RESOLVED Secondary to supratherapeutic INR from warfarin. CT A/P 02/13/21 without nephrolithiasis or renal lesions. Suspected concomitant UTI as below INR normalized, gross hematuria resolved. Repeat UA 02/16 with persistent 1+ blood, 5-10 RBC. Repeat UA outpatient ordered for 2 weeks from [place] after resolution of UTI with consideration of urologic workup if microscopic hematuria persists. 2. Supratherapeutic INR - RESOLVED Due to nonadherence with INR monitoring (hadn't checked in months - limited mobility prevents him from getting to visits) Chronic home warfarin 20mg daily. INR >10.7 on admission. Normalized s/p IV VitK. Not resuming warfarin. 3. Chronic anticoagulation Indication: Heterozygous Factor 5 Leiden mutation, history of large RLE DVT 2016. Dr. Junior Hem/Onc 2017 felt AC warranted due to multiple VTE risk factors (FVL, obesity, limited mobility, chronic venous stasis) but noted that indefinite anticoagulation may not be indicated / could consider stopping in future if mobility improved. Unfortunately mobility has not improved/even decli aileen since that time. Given patient's limitations in ability to f/u for INR monitoring, ongoing warfarin risk likely greater than benefit. Started rivaroxaban 20mg daily 02/17, understanding limited evidence in excessive BMI but noting risk is underdosing and this would at least provide him with some protection from recurrent VTE without need for ongoing monitoring/dose adjustment. Monitor for hematuria recurrence. If significant bleeding recurs, may deem risk of ongoing AC is greater than benefit. 4. High grade heart block s/p PPM 02/16/21, Tachycardia History of varying degrees of heart block in the past. High-grade heart block 2018. EKGs this admission w/ complete block, ventricular escape rhythm, RBBB S/p PPM placement 02/16/21 w/ Dr Gallardo After PPM placement, developed asymptomatic tachycardia consistent with atrial tachycardia vs PMT. Controlled w/ metoprolol Started metoprolol tartrate 50mg BID to be continued on discharge. Switch to succinate 100mg as able to simplify home med regimen Outpatient follow up with Dr Gallardo 5. Polymicrobial UTI (MRSA/[place]) Initially suspected skin luis enrique/contaminated specimen but repeat UA clean catch 02/16 w/ RN assistance w/ persistent budding yeast and MRSA on culture, patient reporting slight dysuria. - Fluconazole 200mg/day x 14d for malia cystitis (last day 03/02/21) - Doxycycline 100mg BID x 7d for MRSA complicated UTI (last day 02/24/21) 6. Anemia Hgb 11s (from baseline 14-15) 2/2 blood loss in in s/o supratherapeutic INR and hematuria/L knee hematoma Stabilized following INR reversal/hematuria resolution. Did not require transfusion. Follow up in 2 weeks outpatient to ensure ongoing stability 7. Diabetes mellitus Poorly controlled. A1c 13.2% Discharge Regimen - Resume metformin 1000mg BID - Stop prior insulin regimen. Start insulin 70/30 30min before breakfast & supper: 45U breakfast, 25U dinner ([place] WM) - Glucose testing twice daily (fasting AM & pre-supper) Follow up outpatient for uptitration. Consider adding GLP1RA or SGLT2i if financially feasible 8. HLD - H/o CAD per chart but no objective evidence to support this (no LHC, myocardial perfusion scan 2015 w/ no inducible ischemia & fixed ant apical/anteroseptal perfusion defect suspected due to artifact given preserved wall motion) - LDL at goal <70 - Continue home atorvastatin 20mg daily 9. Vitamin-D deficiency VitD 7.3 Started 50,000U weekly x 12 weeks then 2000U daily thereafter 10 . Hypertension, HFpEF TTE 02/15/21: LVEF 50-55%, mild concentric LVH, RV pressure/volume overload with moderately dilated RV and inferior cava dilated. Stable mild LE edema w/o evidence of central volume overload Continue home lisinopril 10mg daily & furosemide 80mg PO qAM. Consider adding SGLT2i given benefit in HFpEF + glycemic benefits 11. Chronic pain Continue home oxycodone 10mg TID PRN + PRN APAP 12. Poor mobility Waylon repeatedly declined PT evaluation inpatient. He & family note impaired mobility limits ability to leave home for appointments (significant difficulty navigating stairs to get in/out of home). Consider home health care referral outpatient for home PT to improve mobility. Uses walker at home. TRANSITIONS OF CARE SUMMARY OUTPATIENT FOLLOW UP - Dual chamber pacemaker placed 02/16/21 - Follow up with Dr Gallardo outpatient - Hematuria - Follow up UA & CBC placed for 2 weeks s/p discharge. If persistent microscopic hematuria, urologic evaluation warranted - Diabetes - Follow up home blood glucose readings to uptitrate home insulin regimen. Consider adding GLP1RA (given obesity) or SGLT2i (given HFpEF) if financially feasible. - Poor mobility - Consider home health care referral outpatient for home PT to improve mobility. Declined inpatient PT assessment MEDICATION CHANGES - STOPPED warfarin. STARTED xarelto 20mg daily - STOPPED regular insulin. STARTED insulin 70/30 45U breakfast + 25U supper. Will likely need uptitration. - STARTED fluconazole 200mg daily (last dose 03/02/21) and doxycycline BID (last dose 02/24/21) for Malia/MRSA UTI - STARTED metoprolol tartrate 50mg BID for tachycardia (atrial tach vs pacer mediated). Can switch to metop succinate 100mg daily for ease of use if tolerating well Total Time Total Time Spent Total Time Spent (In Minutes): 35 Total Time Includes: Examination of the Patient, Discharge Planning and Medication Reconciliation Discharge Plan Discharge Items Patient Disposition: Home - Self-Care Reason For Visit: HEMATURIA, SUPRATHERAPEUTIC INR Discharge Diagnosis: Blood in urine due to too much coumadin. Low heart rate due to blocked electrical activity in heart. Condition on Discharge: Good Activity: Per Instructions section Lifting: Gradually increase as tolerated Bathing: No limitations Exercise/Sports: Gradually increase as tolerated Non-emergency contact: Primary Care Provider Call non-emergency contact if: you have any medication questions, your symptoms worsen, your pain is not controlled, your wound has increased redness, your wound has increased drainage and your wound pain has increased Follow-up/Referrals: Joe Nevarez MD [Primary Care Provider] - 03/01/21 3:00 pm Anuel Gallardo MD [Physician] - 03/24/21 1:00 pm Diet: Carb Consistent or DM2 Ambulatory Orders: Complete Blood Count no Diff (Routine) Timeframe: 2 Weeks Location: Determined by Patient Ordered By: Shelby Rolon Urine rflx Microscopic (Routine) Timeframe: 2 Weeks Location: Determined by Patient Ordered By: Shelby Rolon Addtl Attending Provider Instructions: PRESCRIPTIONS - [facility]. Please pickle maker all new prescriptions today. BLOOD THINNERS - STOP taking warfarin - START taking rivaroxaban (aka Xarelto) 20mg daily - If you have blood in your urine or stool, call [facility] office or if there is a lot of blood, come back to the ER right away. BLOOD IN URINE/URINE INFECTION - Even though you don't see blood in your urine anymore there are still blood cells showing up in your urine which is not normal - Please take all pills of of fluconazole 200mg daily (last dose should be 03/02/21) and doxycycline twice daily (last dose 02/24/21) to treat yeast and bacterial infection in your bladder even if you don't have any urine symptoms - Drink plenty of water. If you notice burning or pain when you urinate, call [facility] office - Please have your blood counts and urine checked in 2 weeks DIABETES - Keep taking metformin 1000mg twice daily - STOP taking your previous regular insulin - START taking new insulin: Insulin 70/30 - Inject 45 units 30min before breakfast & 25 units 30min before supper HEART RATE - You had some fast heart rates after your pacemaker was put in - START taking metoprolol 50mg twice daily to help keep your heart rate normal FOR YOUR PACEMAKER INCISION - ACTIVITY RECOMMENDATIONS: * Do not raise affected arm over head for 2 weeks. - SPECIAL CARE INSTRUCTIONS: * If bleeding occurs, apply direct pressure to area for 5 minutes. * Call your doctor if you have severe pain, fever, drainage or bleeding at site. * Keep any scheduled doctor's appointment. * Implant Card - hand held device with website information given. - SKIN IRRITATION: * You may experience some redness and/or swelling in the area where radiation was administered. If any skin irritation occurs, please contact your family physician. FOLLOW UP VISITS: Please be sure to go to your follow up appointments with Dr Gallardo and Dr Nevarez. Call Dr. Nevarez if you won't be able to make it into the office and he might be able to do a phone visit. Pending Studies at Discharge: No Stand-Alone Forms: My [facility] Medications and DC Order Prescriptions: New fluconazole 100 mg Tablet 200 mg PO QAM Qty: 13 RF: 0 Xarelto 20 mg Tablet 20 mg PO DAILY Qty: 30 RF: 0 metoprolol tartrate 50 mg Tablet 50 mg PO BID Qty: 60 RF: 0 acetaminophen 325 mg Tablet 650 mg PO Q6H PRN (Reason: pain) Qty: 30 RF: 0 sennosides [Senokot] 8.6 mg Tablet 8.6 mg PO BID Qty: 30 RF: 0 ergocalciferol (vitamin D2) 1,250 mcg (50,000 unit) Capsule 50,000 unit PO Q7D@0900 Qty: 14 RF: 0 doxycycline hyclate 100 mg Capsule 100 mg PO BID 7 Days Qty: 13 RF: 0 nystatin [Nystop] 100,000 unit/gram Powder 1 applic EXT TID Qty: 60 RF: 0 Novolin 70-30 FlexPen U-100 100 unit/mL (70-30) insulin pen See Rx Instructions .ROUTE .COMPLEX Qty: 15 RF: 0 Continued atorvastatin 20 mg tablet 20 mg PO QAM Qty: 90 RF: 3 (DME) insulin syringe-needle U-100 [BD Insulin Syringe Ultra-Fine] 1 mL 31 gauge x 5/16 syringe See Rx Instructions .ROUTE .MEDSUPPLY Qty: 300 RF: 3 furosemide 80 mg tablet 80 mg PO QAM Qty: 30 RF: 5 lisinopril 10 mg tablet 10 mg PO QAM Qty: 90 RF: 3 metformin 1,000 mg tablet 1,000 mg PO BID Qty: 180 RF: 3 (DME) lancets [OneTouch Delica Lancets] 30 gauge misc See Dose Instructions .ROUTE .MEDSUPPLY Qty: 25 RF: 0 oxycodone 10 mg tablet 10 mg PO TID PRN (Reason: pain) Qty: 90 RF: 0 nystatin 100,000 unit/gram cream 1 applic TOP BID Qty: 30 RF: 0 (DME) blood sugar diagnostic Strip See Dose Instructions .ROUTE .MEDSUPPLY Qty: 10 RF: 0 Discontinued Humulin R Regular U-100 Insuln 100 unit/mL solution 1 sliding scale dose subcut USEASDIRECTD Qty: 10 RF: 2 warfarin 10 mg tablet 20 mg PO QAM Qty: 180 RF: 1 cholecalciferol (vitamin D3) 1,000 unit capsule 1,000 units PO WK RF: 0 Discharge Orders: Discharge Order (Routine); Ordered 02/19/21 Ordered By: Shelby Jones/Other Patient Handouts: Diabetes Learn Serve Portion Size, Diabetes Carbs Fats Protein Admission Data Admit Date/Time: 02/13/21 18:25 Attending Provider: Shelby Rolon Admit Provider: Mau Ibarra Primary Care Provider: Joe Nevarez Other Providers: Joe Nevarez ; Vernon Munoz ; Anuel Gallardo Other Interventions: Discharge Summary Assessment (RN) Last Done: 02/18/21 13:23 Coding Level of Care Code D/C DAY MANAGEMENT >30 MINS Diagnoses Ambulatory dysfunction R26.2 Bradycardia R00.1 Chronic anticoagulation Z79.01 Complete heart block I44.2 DM (diabetes mellitus), type 2, uncontrolled w/neurologic complication E11.49; E11.65 Factor V Leiden mutation D68.51 Gastroesophageal reflux disease K21.9 Hematuria R31.9 Hypercholesterolemia E78.00 Hypertension I10 Supratherapeutic INR R79.1 Vitamin D deficiency E55.9 Candiduria B37.49 Acute blood loss anemia D62 Tachycardia R00.0 Complicated urinary tract infection N39.0
[2021-02-18 07:41] LABS: Basophils # (auto) 0.02 K/uL (0-0.2); Basophils % (auto) 0.3 %; Eosinophils % (auto) 7.2 %; Hematocrit (blood only) 31.7 % (42-52); Hemoglobin 10.3 g/dL (14.0-18.0); Immature Granulocytes # (auto) 0.17 K/uL (0.00-0.02); Immature Granulocytes % (auto) 2.4 %; Lymphocytes # (auto) 1.34 K/uL (1.2-3.4); Lymphocytes % (auto) 19.3 %; Mean Corpuscular Hemoglobin 29.1 pg (25-34); Mean Corpuscular Hgb Conc 32.5 g/dL (32-36); Mean Corpuscular Volume 89.5 fL (80-100); Mean Platelet Volume 10.4 fL (7.4-10.4); Monocytes # (auto) 1.23 K/uL (0.11-0.59); Monocytes % (auto) 17.7 %; Neutrophils % (auto) 53.1 %; Platelet Count 310 K/uL (130-400); RDW Coefficient of Variation 15.5 % (11.5-14.5); RDW Standard Deviation 49.8 fL (36.4-46.3); Red Blood Count 3.54 M/uL (4.7-6.1); White Blood Count 6.96 K/uL (4.8-10.8)
[2021-02-18 07:49] LABS: INR 1.3 (0.9-1.1)
[2021-02-18] MEDS ORDERED: NovoLIN-N (NPH) PER UNIT CHARGE SQ ONE ×2 (08:00→17:00)
[2021-02-18 08:13] LABS: Calcium 7.9 mg/dl (8.5-10.1); Creatinine Clr Calc Pharmacy 177.4 ml/min; Est GFR (African American) 120.7 ml/min; Est GFR (Non-African American) 104.1 ml/min; Potassium 4.1 mmol/L (3.5-5.1)
[2021-02-18] MEDS: INSULIN ASPART PER UNIT SC SCH ×4 (08:33→20:08)
[2021-02-18] MEDS: NYSTATIN POWDER 15GM BTL EXT SCH ×3 (08:34→20:48)
[2021-02-18] MEDS: FLUCONAZOLE 100 MG TAB PO SCH (08:34)
[2021-02-18] MEDS: lisinopril 10 MG TAB PO SCH (08:35)
[2021-02-18] MEDS: ATORVASTATIN 20 MG TAB PO SCH (08:35)
[2021-02-18] MEDS: METOPROLOL TARTRATE 50 MG TAB PO SCH ×2 (08:35→21:41)
[2021-02-18] MEDS: RIVAROXABAN 20 MG TAB PO SCH (08:35)
[2021-02-18] MEDS: SENNA 8.6 MG TAB PO SCH ×2 (08:35→21:42)
[2021-02-18] MEDS: FUROSEMIDE 80 MG TAB PO SCH (08:35)
[2021-02-18] MEDS: oxyCODONE HCL IR 5 MG TAB (IMMEDIATE RELEASE) PO PRN ×2 (08:42→20:45)
--- NOTE | 2021-02-18 09:52 | Cardiology Progress Note ---
Date of Service February 18, 2021 Assessment & Plan (1) Status post placement of cardiac pacemaker: (2) Tachycardia: Plan: Postop day #1: He is doing well post pacemaker. The site looks good, chest x- ray looks good, device measurements are excellent. He should be stable for discharge from my standpoint. Tachycardia: His tachycardia appears to be either an atrial tachycardia or a PMT. Unfortunately his P waves are not clear enough on telemetry to determine precisely where they are, the tachycardia starts with a paced beat followed by a pause but there is no atrial paced beat before the arrhythmia starts therefore an intrinsic atrial beat must have been present and tracked at the onset. Likewise at the termination the rhythm stops abruptly and is followed by an AV paced beat suggesting lack of atrial activity after the last ventricular paced beat. We did program his pacemaker somewhat to minimize the chance that this is a PMT. This is not of much significance and he was asymptomatic, the only concern would be if this becomes more sustained it could be an issue but we would see it on pacemaker monitoring. I do have him scheduled for an office visit tomorrow but based on my conversation with him not sure he is going to come in. I told him that if he cannot come in he needs to contact us and change the appointment. Admission and Anticipated Discharge Date Admission Date: February 13, 2021 Subjective He is feeling relatively well today. He has minimal incisional discomfort, he has been up and about and he thinks he may feel stronger now with the pacemaker in place. Physical Exam Physical Exam: The incision is clean and dry with no significant bleeding, no ecchymosis, no significant tenderness. No swelling. Respiratory: normal respiratory effort, lungs clear to auscultation Cardiovascular: Rate/Rhythm: regular rate Heart Sounds: no murmur and no cardiac rub Results & Data ([facility]) Vital Signs (Past 12 Hours) Vital Signs Temp Pulse Pulse Resp BP Pulse Ox 02/18/21 07:14 64 02/18/21 07:03 36.7 C 66 20 100/61 94 02/18/21 02:45 36.9 C 72 18 128/74 98 02/18/21 00:00 68 02/17/21 23:19 36.7 C 65 20 136/80 97 Laboratory Results Coagulation 02/18/21 Range/Units 07:17 PT 13.0 H (9.0-12.0) Seconds CBC 02/18/21 Range/Units 07:17 WBC 6.96 (4.8-10.8) K/uL RBC 3.54 L (4.7-6.1) M/uL Hgb 10.3 L (14.0-18.0) g/dL Hct 31.7 L (42-52) % Plt Count 310 (130-400) K/uL Neut # (Auto) 3.70 (1.4-6.5) K/uL Lymph # (Auto) 1.34 (1.2-3.4) K/uL [place] # (Auto) 1.23 H (0.11-0.59) K/uL Eos # (Auto) 0.50 (0-0.5) K/uL Baso # (Auto) 0.02 (0-0.2) K/uL Comprehensive Metabolic Panel 02/18/21 Range/Units 07:17 Sodium 134 L (136-145) mmol/L Potassium 4.1 (3.5-5.1) mmol/L Chloride 98 (98-107) mmol/L Carbon Dioxide 31 (21-32) mmol/L BUN 12 (6-23) mg/dl Creatinine 0.63 (0.6-1.4) mg/dl Glucose 174 H (70-99) mg/dl Calcium 7.9 L (8.5-10.1) mg/dl Intake and Output 02/17/21 02/18/21 02/18/21 22:59 06:59 14:59 Intake Total 635 / 875 240 / 875 Output Total 350 / 1325 800 / 1325 Balance 285 / -450 -560 / -450 Intake: Oral 635 / 875 240 / 875 Output: Urine 350 / 1325 800 / 1325 Other: # Unmeasured Voids 1 Weight 155.2 kg Weight Measurement Method Built in [facility] Diagnostic Findings Telemetry: Predominantly sinus rhythm with ventricular pacing, some AV pacing. There is one episode of increased heart rate last evening with a heart rate of about 100 bpm for almost 3 hours. Suggestive of a PMT although not with atypical initiation, alternatively it could be an episode of atrial tachycardia. PG Care Time/CCT Total # of Minutes Spent Total Time Spent with Patient: Total time spent is greater than 50% in coordination of care (as documented) at patient's floor/unit and/or counseling patient: Coding Level of Care Code 81621 Post Operative Follow-Up Diagnoses Status post placement of cardiac pacemaker Z95.0 Tachycardia R00.0 CPT Codes Dual Lead Pacemaker System - [id number] ([id number])
--- NOTE | 2021-02-18 11:12 | Pharmacy Report ---
Pharmacy Glycemic Short Note 2 - Date of Service February 18, 2021 - Glycemic Short BSG Results (Last 24 hours): 02/17/21 02/17/21 02/17/21 11:18 11:18 16:12 Glucose POC Glucose 302 H* 320 H* 96 02/17/21 02/18/21 02/18/21 19:58 07:02 07:17 Glucose 174 H POC Glucose 143 H 175 H OUTPATIENT ANTIDIABETIC REGIMEN: * Metformin 1000 mg PO BID with meals * Novolin N 80 units SC HS * Novolin R 50 units SC qAM * HbA1c: 13.2% (02/14/21) ASSESSMENT: 02/18/21: * Pt given NPH instead of Lantus this morning, in preparation for discharge and initiation of 70/30 insulin this evening (once home). * Anticipate that pt will be discharged today. 02/17 * BSGs remain elevated, 239, 193 245, and 165 mg/dL yesterday * Received 69 units of insulin (39 units of which was basal) * POD #1 s/p pacemaker insertion * Plan to increase basal insulin today and tighten Novolog carb coverage * Lunch BSG of 320 mg/dL, patient reportedly ate two breakfasts this morning, but only covered for one of them. Won't overreact to this BSG. 02/15 * BSGs poorly controlled yesterday, ranging 157-282 mg/dL * Received 79 units of insulin, 35 units of Lantus and 44 units of prandial/correctional Novolog * Patient was originally NPO after midnight today, but pacemaker insertion rescheduled to tomorrow * This led to late breakfast tray, no Novolog given - won't overreact to elevated lunchtime BSG * Plan to split Lantus BID today and continue tightened Novolog parameters from yesterday 02/14 * Patient received total 43 units of insulin yesterday; 35 units basal + 8 units bolus. * On admission, BSG was 485 mg/dl yesterday evening. BSG trended down to 235 mg/dl by midnight after basal 35 units and bolus of 4 units. * Fasting BSG today was 157 mg/dl. Ordered basal insulin 30-35 units scale based on BSG at HS tonight. * Pre-lunch BSG trended up to 227 mg/dl. Novolog parameters tightened slightly with lunch. PLAN FOR INPATIENT GLYCEMIC CONTROL: * Hold outpatient oral diabetes medications * Basal insulin - * NPH 25 units SQ x1 dose this morning * Bolus insulin - * NovoLog per scale ACHS or Q6hrs while NPO * Goal Range: Low 110 mg/dL - High 140 mg/dL * Correction Factor: 15 mg/dL/unit * Nutritional / Prandial insulin per carb ratio of 1 unit per 5 grams CHO consumed PLAN FOR DISCHARGE: * HbA1c of 13.2% suggests very poor outpatient glycemic control * Patient's current outpatient regimen is inappropriate - agree with clinical unit educator that patient would benefit from 70/30 pre-mixed insulin BIDM * At this point, 70/30 pre-mixed insulin 45 units SC with breakfast, 25 units SC with dinner is reasonable for initiation (prioritizing safety) * SMBG at least twice daily (ensuring one fasting BSG in AM) * Ensure prompt outpatient follow-up for further dose titration of insulin * Reasonable to continue metformin at discharge * Discontinue prior outpatient insulin regimen
[2021-02-18] MEDS: DOXYCYCLINE HYCLATE 100 MG CAP PO SCH ×2 (13:47→21:41)
--- NOTE | 2021-02-18 18:35 | Hospitalist Progress Note ---
Date of Service February 18, 2021 Assessment & Plan (1) Ambulatory dysfunction: (2) Bradycardia: (3) Chronic anticoagulation: (4) Complete heart block: (5) Coronary artery disease: (6) DM (diabetes mellitus), type 2, uncontrolled w/neurologic complication: (7) Factor V Leiden mutation: (8) Gastroesophageal reflux disease: (9) Hematuria: (10) Hypercholesterolemia: (11) Hypertension: (12) Morbid obesity: (13) CHRISTIANO (obstructive sleep apnea): (14) Supratherapeutic INR: (15) Vitamin D deficiency: (16) Candiduria: Plan: Waylon Dodson is a 65-year-old male admitted 02/13/21 with hematuria 2/2 supratherapeutic INR (>10.7 on arrival). INR normalized with IV vitamin K administration & hematuria subsequently resolved. Noted to have sinus bradycardia with complete heart block & underwent PPM placement 02/16/21. 1. Gross hematuriadue to warfarin therapy - RESOLVED Secondary to supratherapeutic INR from warfarin. CT A/P 02/13/21 without nephrolithiasis or renal lesions. Suspected concomitant UTI as below INR normalized, gross hematuria resolved. Repeat UA 02/16 with persistent 1+ blood, 5-10 RBC. Should have UA repeated as an outpatient after resolution of UTI with consideration of urologic workup if microscopic hematuria persists. 2. Supratherapeutic INR - RESOLVED Due to nonadherence with INR monitoring (hadn't checked in months - limited mobility prevents him from getting to visits) Chronic home warfarin 20mg daily. INR >10.7 on admission. Normalized s/p IV VitK. Not resuming warfarin. 3. Chronic anticoagulation Indication: Heterozygous Factor 5 Leiden mutation, history of large RLE DVT 2017. Seen by Dr. Junior in Hem/Onc 2017 who felt AC warranted due to multiple VTE risk factors (FVL, obesity, limited mobility, chronic venous stasis) but noted that indefinite anticoagulation may not be indicated / could consider stopping in future if mobility improved. Unfortunately mobility has not improved/even declined since that time. Given patient's limitations in ability to f/u for INR monitoring, ongoing warfarin risk likely greater than benefit. Started rivaroxaban 20mg daily 02/17, understanding limited evidence in excessive BMI but noting risk is underdosing and this would at least provide him with some protection from recurrent VTE without need for ongoing monitoring/dose adjustment. Monitor for hematuria recurrence. If significant bleeding recurs, may deem risk of ongoing AC is greater than benefit. 4. High grade heart block s/p PPM 02/16/21, Tachycardia History of varying degrees of heart block in the past. High-grade heart block 2018. EKGs this admission w/ complete block, ventricular escape rhythm, RBBB S/p PPM placement 02/16/21 w/ Dr Gallardo After PPM placement, developed asymptomatic tachycardia consistent with PMT vs atrial tachycardia per Dr Gallardo's assessment of telemetry data Continue metoprolol tartrate 50mg BID Will have to reschedule outpatient follow up with Dr Gallardo - currently for Sunday 02/19 5. Polymicrobial UTI (MRSA/[place]) Presented with hematuria due to above, also endorsing slight burning associated with hematuria, raising concern for UTI vs dysuria 2/2 hematuria. Difficult to discern. Admission UA w/ many WBC, budding yeast, blood although also many squam epi cells suggesting not a clean catch/contamination Urine culture w/ >3 bacterial organisms, malia albicans/dubliniensis. S/p 1 dose Ctx in ED - hives. No further antibiotics indicated. Fluconazole 100mg given 02/15. Initially suspected skin luis enrique/contaminated specimen but repeat UA clean catch 02/16 w/ RN assistance w/ persistent budding yeast and MRSA on culture, patient reporting slight dysuria so will favor treatment given virulent pathogens + glucosuria. - Fluconazole 200mg/day x 14d for malia cystitis (last day 03/02/21) - Doxycycline 100mg BID x 7d for MRSA complicated UTI (last day 02/24/21) 6. Anemia Hgb 11s (from baseline 14-15) 2/2 blood loss in in s/o supratherapeutic INR and hematuria/L knee hematoma Stabilized following INR reversal/hematuria resolution. Did not require transfusion. Today AM drop, normalized on repeat suspect error. No ongoing overt bleeding 7. Diabetes mellitus Poorly controlled. A1c 13.2% Continue insulin NPH + SSI per pharmacy inpatient Pharmacy & diabetes education consulted to assist with management Discharge Regimen - Resume metformin 1000mg BID - Stop prior insulin regimen. Start insulin 70/30 30min before breakfast & supper: 45U breakfast, 25U dinner (Matthew Yarbrough ) - Glucose testing twice daily (fasting AM & pre-supper) 8. HLD - H/o CAD per chart but no objective evidence to support this (no [facility], myocardial perfusion scan 2016 w/ no inducible ischemia & fixed ant apical/anteroseptal perfusion defect suspected due to artifact given preserved wall motion) - LDL at goal <70 - Continue home atorvastatin 20mg daily 9. Vitamin-D deficiency VitD 7.3 - 50,000U weekly x 12 weeks then 2000U daily thereafter 10 . Hypertension, HFpEF TTE 02/15/21: LVEF 50-55%, mild concentric LVH, RV pressure/volume overload with moderately dilated RV and inferior cava dilated. Stable mild LE edema w/o evidence of central volume overload - Continue home lisinopril 10mg daily & furosemide 80mg PO qAM 11. Chronic pain On home oxycodone 10mg TID PRN Reports uncontrolled pain, particularly in L knee in s/o hematoma 2/2 supratherapeutic INR, & desire for opiate uptitration Discussed that chronic opioid therapy can lead to worse pain/functional outcomes in drafter detail. Offered alternative agents for pain control which patient declined today. Ice PRN. Mobility exercises. 12. Tobacco use - Chewing tobacco use. Encouraged cessation. He declines NRT gum. Obstructive sleep apnea- continue BiPAP qhs Morbid obesity - Chronic. TSH normal 02/2021. History of chronic venous stasis with cellulitis of lower extremities - currently no evidence of infection. Continue diuresis as above + elevation + compression as tolerated DVT prophylaxis- NA. On therapeutic Rivaroxaban Diet- Carb controlled Code status - Full Disposition- Tomorrow. Medically ready today but family unable to arrange transportation & assistance at home. Patient persistently declining PT/OT eval despite concerns raised by nursing, physicians, and family about limited mobility & need to navigate stairs at home Admission and Anticipated Discharge Date Admission Date: February 13, 2021 Imani Dodson is a 65-year-old male admitted 02/13/21 with hematuria 2/2 supratherapeutic INR (>10.7 on arrival) on coumadin due to nonadherence with outpatient monitoring. INR normalized with IV vitamin K administration & hematuria subsequently resolved. His medical history is notable for heterozygous factor 5 Leiden mutation w/ large RLE DVT 2016 (on chronic warfarin w/ poor/no outpatient INR f/u), poorly controlled T2DM (A1c 13.2%), hyperlipidemia & CAD, heart block, HTN, history of cellulitis of the legs, GERD, obstructive sleep apnea (BiPAP), gait disturbance, fatty liver, and morbid obesity. Today Feeling well No hematuria despite initiation of rivaroxaban last evening Still no BM HR well controlled on metoprolol. Normotensive Afebrile RA. AM labs w/ Hgb 10.3<11.4. Repeat in afternoon 11.4 INR 1.3 RFP unremarkable Urine culture growing MRSA. Denies urinary symptoms at present Glucose yesterday 300s pre-lunch due to eating 2nd breakfast w/o carb coverage. Anibal 96. Today AM fasting 175 TDD insulin yesterday (91U: 44U glargine + 47U aspart) Was planned for discharge today but sister unable to arrange support at home to help him get up & down stairs. She will have adequate help tomorrow. She is concerned about his ability to navigate stairs at home. Medical team members have also expressed this concern with Waylon but he continues to decline to work with PT/OT for formal assessment of mobility and says he will be able to make it work at home. Review of Systems Review of Systems: No FELIX LH CP SOB Abd pain NV. PPM pocket nontender +Constipation. Stable LE edema Physical Exam Physical Exam: General: Well appearing, sitting on bed comfortably CV: Normal rate, regular rhythm. No murmurs. L upper chest PPM site covered w/ dressings C/D/I no erythema or bleeding Resp: Breathing comfortably on room air. Lungs clear to auscultation bilaterally. No wheezes, crackles, or rhonchi Abd: Soft, nontender, obese, no bruising Ext: Warm, well perfused. 1+ pitting edema of b/l LE. L knee hematoma, slightly TTP, able to bend. : No lin Results & Data Results & Data ([facility]) Vital Signs (Past 12 Hours) Vital Signs Temp Pulse Pulse Pulse Resp BP BP 02/18/21 15:11 62 02/18/21 15:00 97.5 F L 68 20 100/66 02/18/21 13:23 98.1 F 46 L 62 19 119/65 133/76 02/18/21 11:59 98.1 F 62 19 133/76 02/18/21 07:14 64 02/18/21 07:03 98.1 F 66 20 100/61 Pulse Ox 02/18/21 15:11 02/18/21 15:00 97 02/18/21 13:23 95 02/18/21 11:59 95 02/18/21 07:14 02/18/21 07:03 94 PG Care Time/CCT Total # of Minutes Spent Total Time Spent with Patient: Total time spent is greater than 50% in coordination of care (as documented) at patient's floor/unit and/or counseling patient: Coding Level of Care Code 47811 Subseq Hosp Care Lvl 2 Diagnoses Ambulatory dysfunction R26.2 Bradycardia R00.1 Chronic anticoagulation Z79.01 Complete heart block I44.2 Coronary artery disease I25.10 DM (diabetes mellitus), type 2, uncontrolled w/neurologic complication E11.49; E11.65 Factor V Leiden mutation D68.51 Gastroesophageal reflux disease K21.9 Hematuria R31.9 Hypercholesterolemia E78.00 Hypertension I10 Morbid obesity E66.01 CHRISTIANO (obstructive sleep apnea) G47.33 Supratherapeutic INR R79.1 Vitamin D deficiency E55.9 Candiduria B37.49
[2021-02-19 07:04] LABS: INR 1.2 (0.9-1.1); Prothrombin Time 11.8 Seconds (9.0-12.0)
[2021-02-19] MEDS: SENNA 8.6 MG TAB PO SCH (07:51)
[2021-02-19] MEDS: METOPROLOL TARTRATE 50 MG TAB PO SCH (07:51)
[2021-02-19] MEDS: DOXYCYCLINE HYCLATE 100 MG CAP PO SCH (07:52)
[2021-02-19] MEDS: FLUCONAZOLE 100 MG TAB PO SCH (07:52)
[2021-02-19] MEDS: FUROSEMIDE 80 MG TAB PO SCH (07:52)
[2021-02-19] MEDS: oxyCODONE HCL IR 5 MG TAB (IMMEDIATE RELEASE) PO PRN (07:58)
[2021-02-19] MEDS ORDERED: NovoLIN-N (NPH) PER UNIT CHARGE SQ ONE (08:00)
[2021-02-19] MEDS: INSULIN ASPART PER UNIT SC SCH ×2 (08:05→11:55)
[2021-02-19] MEDS: lisinopril 10 MG TAB PO SCH (09:00)
[2021-02-19] MEDS: ATORVASTATIN 20 MG TAB PO SCH (09:00)
[2021-02-19] MEDS: NYSTATIN POWDER 15GM BTL EXT SCH (09:35)
--- NOTE | 2021-02-19 10:02 | Cardiology Progress Note ---
Date of Service February 19, 2021 Assessment & Plan (1) Status post placement of cardiac pacemaker: (2) Tachycardia: Plan: Postop day #3: He is doing well post pacemaker. The site looks good and can be left open. Tachycardia: His tachycardia appeared to be either an atrial tachycardia or a PMT. When this occurred 36 hours ago his P waves are not clear enough on telemetry to determine precisely where they are, the tachycardia starts with a paced beat followed by a pause but there is no atrial paced beat before the arrhythmia starts therefore an intrinsic atrial beat must have been present and tracked at the onset. Likewise at the termination the rhythm stops abruptly and is followed by an AV paced beat suggesting lack of atrial activity after the last ventricular paced beat. We did program his pacemaker somewhat yesterday to minimize the chance that this is a PMT. This is not of much significance and he was asymptomatic, the only concern would be if this becomes more sustained it could be an issue but we would see it on pacemaker monitoring. He has had none since that first episode. I have him scheduled to come into the office in a month and I have that noted in his discharge paperwork. Admission and Anticipated Discharge Date Admission Date: February 13, 2021 Subjective He is feeling well today with no significant incisional discomfort. Physical Exam Physical Exam: The incision is clean and dry with no swelling or erythema. Dressing removed. Results & Data ([facility]) Vital Signs (Past 12 Hours) Vital Signs Temp Pulse Pulse Resp BP BP Pulse Ox 02/19/21 07:18 36.6 C 67 20 110/68 95 02/19/21 07:00 72 02/19/21 04:28 36.7 C 64 20 108/66 97 02/19/21 00:00 36.6 C 62 18 109/66 97 02/18/21 22:59 36.8 C 75 18 144/75 H 95 Laboratory Results Coagulation 02/19/21 Range/Units 06:07 PT 11.8 (9.0-12.0) Seconds CBC 02/18/21 Range/Units 12:30 Hgb 11.4 L (14.0-18.0) g/dL Intake and Output 02/18/21 02/19/21 02/19/21 22:59 06:59 14:59 Intake Total 360 / 660 300 / 660 Output Total 1402 600 / 1402 Balance 359 / -742 -300 / -742 Intake: Oral 360 / 660 300 / 660 Output: Urine 600 / 1400 # Bowel Movements 1 / 2 Other: # Unmeasured Voids 1 Weight 154.2 kg Weight Measurement Method Built in [facility] Diagnostic Findings Telemetry: Sinus rhythm and sinus bradycardia, ventricular pacing throughout, some atrial pacing appropriately. No significant tachycardia past 24 hours. PG Care Time/CCT Total # of Minutes Spent Total Time Spent with Patient: Total time spent is greater than 50% in coordination of care (as documented) at patient's floor/unit and/or counseling patient: Coding Level of Care Code 50057 Post Operative Follow-Up Diagnoses Status post placement of cardiac pacemaker Z95.0 Tachycardia R00.0
[2021-02-19] MEDS: RIVAROXABAN 20 MG TAB PO SCH (10:53)
== END 2021-02-19 12:30 | disposition home or self-care (01) | DRG 982 ==
LOC: ED 14:20 → EDINP 18:25 → SUATTDRO 18:25 → 2N 22:57 → 2S 02-16 13:57

== ENCOUNTER 2023-12-30 21:33 | Observation (INO) ==
--- OUTSIDE RECORDS SUMMARY | 2023-12-30 21:38 | External Medical Summary | Continuity of Care Document ---
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 Name Role Phone Xiao Mckeon Primary Care P hysician [phone] Encounter PS FINNBR [id number] Date(s): 11/24/23 - 11/24/[address] [facility] [address] [facility], [facility] [address] [place] [address] [phone] Encounter Diagnosis Diabetes mellitus, type 2(Discharge Diagnosis) - 11/24/23 Diastolic heart failure(Discharge Diagnosis) - 11/24/23 Morbid obesity(Discharge Diagnosis) - 11/24/23 Therapeutic drug monitoring(Discharge Diagnosis) - 11/24/23 Chronic leg pain(Discharge Diagnosis) - 11/24/23 Erectile dysfunction(Discharge Diagnosis) - 11/24/23 Colon cancer screening(Discharge Diagnosis) - 11/24/23 Discharge Disposition: Home or Self Care Attending Physician: Satinder Horan DO, Mariana Annette Referring Physician: Satinder Horan DO, Mariana Annette Allergies, Adverse Reactions, Alerts Substance Criticality Severity Reaction Reaction Severity Status sulfa drugs rash Active Assessment and Plan Extracted from: Title:Office Visit Note Author:Satinder Horan DO, Mariana Annette Date:11/24/23 1.Diabetes mellitus, type 2 STATUS:Chronic uncontrolled DATA:Labs reviewed. GOAL:Maintain stability. PLAN:Needs updated labs, although I expect improved A1c with weight loss, will keep ozempic at 0.25mg for now. 2.Diastolic heart failure STATUS:Chronic stable. DATA:Labs reviewed. GOAL:Maintain stability. PLAN:Cont current meds.Could consider jardiance for cardiac protection if tolerated. Needs updated BMP . 3.Morbid obesity Encouraged his weight loss efforts 4.Chronic leg pain Cont [id number] TID. CSA updated. UDS not done as pt unable to provide urine but order placed to be done in the lab. 5.Erectile dysfunction STATUS:Chronic worsening GOAL: resolution PLAN:failed viagra 100mg,trial of [id number] PRN. Referral to urology . 6.Colon cancer screening cologuardordered Immunizations Given and Recorded Vaccine Date Status Refusal Reason pneumococcal 20-valent conjugate vaccine 11/24/23 Given influenza virus vaccine, inactivated 11/24/23 Give n SARS-CoV-2 mRNA ([id number]) 05/21/21 Re corded SARS-CoV-2 mRNA ([id number]) 04/13/21 Re corded tetanus/diphtheria/pertuss, acel (Tdap) 04/11/07 R ecorded Medications acetaminophen-oxycodone 325 mg-10 mg oral tablet Start: 11/03/23 11:09:00 AM EDT, 1 tab, PO, q6h, Disp# 90 tab, Refills: 0, PRN: as needed for pain, Pharmacy: [facility]/pharmacy #[id number] Start Date: 11/03/23 Status: Ordered BD 0.3 mL Ultra-Fine II Short Insulin Syringe 31G x /16" Start: 11/03/15 2:44:00 PM EDT, ----- Start Date: 11/03/15 Status: Ordered Cialis 20 mg oral tablet Start: 11/24/23 4:23:00 PM EDT, 1 tab, PO, Daily, Disp# 5 tab, Refills: 2, PRN: as needed for erectile dysfunction, Pharmacy: [facility]/pharmacy #[id number] Start Date: 11/24/23 Status: Ordered Crestor 20 mg oral tablet Start: 12/06/22 1:44:00 PM EDT, 1 tab, PO, qhs, Disp# 90 tab, Refills: 3, Pharmacy: [facility]/pharmacy #[id number] Start Date: 12/06/22 Status: Ordered furosemide 20 mg oral tablet Start: 12/06/22 1:43:00 PM EDT, 1 tab, PO, Daily, Disp# 90 tab, Refills: 3, Pharmacy: [facility]/pharmacy #[id number] Start Date: 12/06/22 Status: Ordered lisinopril 20 mg oral tablet Start: 12/06/22 1:43:00 PM EDT, 1 tab, PO, Daily, Disp# 90 tab, Refills: 3, Pharmacy: [facility]/pharmacy #[id number] Start Date: 12/06/22 Status: Ordered metFORMIN 1000 mg oral tablet Start: 11/03/15 2:44:00 PM EDT, 1 tab, PO, bid Start Date: 11/03/15 Status: Ordered metoprolol tartrate 50 mg oral tablet Start: 11/03/15 2:43:00 PM EDT, 1 tab, PO, bid Start Date: 11/03/15 Status: Ordered NovoLIN 70/30 Vial subcutaneous suspension Start: 07/06/23 11:00:00 AM EDT, See Instructions, Disp# 40 mL, Refills: 3, 60 units TID, Pharmacy: [facility]/pharmacy #[id number] Start Date: 07/06/23 Status: Ordered One Touch Delica (33G) Lancets Start: 11/03/15 2:45:00 PM EDT, See Instructions, qid, Disp# 1 box Start Date: 11/03/15 Status: Ordered One Touch Ultra Blue Test Strips Start: 11/03/15 2:46:00 PM EDT, See Instructions, Disp# 1 box Start Date: 11/03/15 Status: Ordered Ozempic (0.25 mg or 0.5 mg dose) 2 mg/3 mL subQ pen Start: 06/28/23 3:30:00 PM EDT, 0.5 mg, subQ, q7days, Disp# 3 mL, Refills: 1, Pharmacy: [facility]/pharmacy#[id number], Supply Start Date: 06/28/23 Status: Ordered Senna-Time 8.6 mg oral tablet Start: 07/07/23 9:09:00 AM EDT, 2 tab, PO, Daily, Disp# 50 tab, Refills: 0, PRN: NEEDED FOR CONSTIPATION, Pharmacy: [facility] STORE [id number] Start Date: 07/07/23 Status: Ordered Vitamin D3 50,000 intl units oral capsule Start: 12/09/15 2:41:00 PM EDT, 1 cap, q7days Start Date: 12/09/15 Status: Ordered Mental Status 11/24/23 Barriers to Learning one year None evide nt Mandatory Health Literacy Documentation Yes Health Literacy Communication Barriers N ever Primary Language Mauritanian Problem List Condition Confirmation Course Effective Dates Status H ealth Status Informant Cardiac pacemaker in situ Confirmed Active Chewing tobacco use Confirmed Active AV block, 3rd degree Confirmed Active Diastolic heart failure Confirmed Active HLD (hyperlipidemia) Confirmed Active HTN (hypertension) Confirmed Active Morbid obesity Confirmed Active Diabetic neuropathy Confirmed Active Severe obstructive sleep apnea Confirmed Active Onychomycosis Confirmed Active Chronic leg pain Confirmed Active Chronic prescription opiate use Confirmed Active Diabetes mellitus, type 2 Confirmed Active Vitamin D deficiency Confirmed Active Weight disorder Confirmed Active Diagnosis Diagnosis Type Effective Dates Health Status Clinical Service Informant Morbid obesity Discharge Diagnosis 11/24/23 Non-Specified Diabetes mellitus, type 2 Discharge Diagnosis 11/24/23 Non-Specified Diastolic heart failure Discharge Diagnosis 11/24/23 Non-Specified Therapeutic drug monitoring Discharge Diagnosis 11/24/23 Non-Specified Erectile dysfunction Discharge Diagnosis 11/24/23 Non-Specified Colon cancer screening Discharge Diagnosis 11/24/23 Non-Specified Chronic leg pain Discharge Diagnosis 11/24/23 Non-Specified Procedures Procedure Date Related Diagnosis Body Site Status Colonoscopy 02/06/11 Completed Appendectomy 1 Completed Tonsillectomy and adenoidectomy Completed 1Grade school aged Vital Signs Most recent to oldest [Reference Range]: 1 Patient Weight 132 kg (11/24/23 4:08 PM) Heart Rate 103 bpm (11/24/23 4:08 PM) Respiratory Rate 24 br/min (11/24/23 4:08 PM) Blood Pressure 138/78mmHg (11/24/23 4:08 PM) Social History Social History Type Response Tobacco 1 Smoking Status Never smoked cigaret yan Sex Male Sex Representation Male (finding) 1Snuff FCM Outpt Note * Satinder Horan DO, Mariana Annette: PERFORM Event Display: FCM Outpt Note Authored Date: [id number] Chief Complaint f/u - lost 35 lbs, f/u on A1C, CSA History of Present Illness Presents to f/u on chronic conditions PMH: DM type 2 c/b neuropathy, CHRISTIANO on CPAP, HTN, HLD, recurrent cellulitis, venous stasis, vitamin D deficiency, chronic opiate use for leg pain, 3rd degree AV block with pacemaker. Diabetes Type II,uncontrolled with comorbid disease - last A1c Oct 2022 11.4 - current regimen includes metformin 1000mg BID, Novolin 70/30 - 60-70 units TID, ozempic 0.25mg. - lost 16 kg since last visit -on statin therapy and ACEi/ARB per medication list - adherent to present medication regimen - home glucose measurements:150s-180s. Does not want to use CGM. - dietary review: has been eating less to lose weight, but eats what he wants. Not interested in dietary advice. - exercise regimen: none. uses walker Chronic bilateral leg pain from recurrentcellulitis worse with activity Takes [place] 10 3times a day, previously on gabapentin but states it did not do much for him, not sure what dose he was taking. He endorses worsening erectile dysfunction, he is on [id number], but feels like it is not working well anymore. Not able to achieve erection. Interested in surgical options. Health Maintenance: - Colon CA screening: neg colo in 2011 but poor prep, was to have f/u in 2019 but never had. Agreeable to cologuard. Physical Exam Vitals & Measurements HR:103(Monitored) RR:24 BP:138/78 SpO2:94% WT:132.000kg(Dosing) WT:132kg PHQ2 Data(Data Documented on:11/24/2023 16:09) Emotional health assessment NEGATIVE General: _Alert and oriented, No acute distress, walker Cardiovascular: _Normal rate, Regular rhythm, No murmur, No gallop. Respiratory: _Lungs are clear to auscultation, Respirations are non-labored, Breath sounds are equal Psych: Mood-affect congruence. Reports no SI/HI. Speech is of normal pace and content Assessment/Plan 1.Diabetes mellitus, type 2 STATUS:Chronic uncontrolled DATA:Labs reviewed. GOAL:Maintain stability. PLAN:Needs updated labs, although I expect improved A1c with weight loss, will keep ozempic at 0.25mg for now. 2.Diastolic heart failure STATUS:Chronic stable. DATA:Labs reviewed. GOAL:Maintain stability. PLAN:Cont current meds.Could consider jardiance for cardiac protection if tolerated. Needs updated BMP . 3.Morbid obesity Encouraged his weight loss efforts 4.Chronic leg pain Cont [id number] TID. CSA updated. UDS not done as pt unable to provide urine but order placed to be done in the lab. 5.Erectile dysfunction STATUS:Chronic worsening GOAL: resolution PLAN:failed viagra 100mg,trial of [id number] PRN. Referral to urology . 6.Colon cancer screening cologuardordered Attestation Time spent: Pre-visit planning: _6 [id number]-[id number] visit: _34 Post-visit (orders/documentation/coordination of care):5 Total visit time: _45 Problem List/Past Medical History Ongoing AV block, 3rd degree Cardiac pacemaker in situ Chewing tobacco use Chronic leg pain Chronic prescription opiate use Diabetes mellitus, type 2 Diabetic neuropathy Diastolic heart failure HLD (hyperlipidemia) HTN (hypertension) Morbid obesity Onychomycosis Severe obstructive sleep apnea Vitamin D deficiency Weight disorder Procedure/Surgical History Colonoscopy| Service Date: 02/06/2011Tonsillectomy and adenoidectomyAppendectomy Medications acetaminophen-oxycodone(acetaminophen-oxycodone 325 mg-10 mg oral tablet), 1 tab, PO, q6h, PRN cholecalciferol(Vitamin D3 50,000 intl units oral capsule), [address]12 Int_Unit= 1 cap, q7days diabetic supplies(One Touch Delica (33G) Lancets), See Instructions, qid diabetic supplies(One Touch Ultra Blue Test Strips), See Instructions furosemide(furosemide 20 mg oral tablet), 20 mg= 1 tab, PO, Daily, 3 refills insulin isophane (NPH)-insulin regular(NovoLIN 70/30 Vial subcutaneous suspension), See Instructions, 3 refills lisinopril(lisinopril 20 mg oral tablet), 20 mg= 1 tab, PO, Daily, 3 refills metFORMIN(metFORMIN 1000 mg oral tablet), 1000 mg= 1 tab, PO, bid metoprolol(metoprolol tartrate 50 mg oral tablet), 50 mg= 1 tab, PO, bid rosuvastatin(Crestor 20 mg oral tablet), 20 mg= 1 tab, PO, qhs, 3 refills semaglutide(Ozempic (0.25 mg or 0.5 mg dose) 2 mg/3 mL subQ pen), 0.5 mg, subQ, q7days, 1 refills senna(Senna-Time 8.6 mg oral tablet), 2 tab, PO, Daily, PRN syringe(BD 0.3 mL Ultra-Fine II Short Insulin Syringe 31G x 5/16") tadalafil(Cialis 20 mg oral tablet), 20 mg= 1 tab, PO, Daily, PRN, 2 refills Allergies sulfa drugsrash Social History Smoking Status Never smoked cigarettes Alcohol - Denies Alcohol Use Substance Abuse - Denies Substance Abuse Tobacco - Denies Tobacco Use - Comments: Snuff Family History COPD: Mother. Cardiovascular disease: Father and Brother. Diabetes mellitus: Mother, PGF and PGM. Heart attack: Father. Obesity: Brother. Prostate carcinoma: Brother. Stroke: Mother. Health Status Family Member(s) Immunizations Vaccine Date Status pneumococcal 20-valent conjugate vaccine 11/24/2023 Given influenza virus vaccine, inactivated 11/24/2023 Given SARS-CoV-2 mRNA ([id number]) 05/21/2021 Recorded SARS-CoV-2 mRNA ([id number]) 04/13/2021 Recorded tetanus/diphtheria/pertuss, acel (Tdap) 04/11/2007 Recorded Recommendations Health Maintenance Pending(in the next year) OverDue Colorectal Cancer Screening due02/03/21and every 10year Due Diabetes Management A1c due10/08/23and every 366day Adult COVID-19 Vaccination due11/24/23Unknown Frequency Adult Social Determinants of Health Screening due11/24/23Unknown Frequency Adult Tdap/Td Vaccine due11/24/23Unknown Frequency Hepatitis C Screening due11/24/23One-time only Medicare Annual Wellness Visit due11/24/23and every 1year Shingles Vaccine due11/24/23One-time only Due In Future Diabetic Eye Exam not due until03/14/24and every 731day Adult Influenza Vaccine not due until08/05/24and every 1year Satisfied(in the past 1 year) Satisfied Adult Influenza Vaccine on11/24/23.Satisfied by FAITH Ledbetter Donna Body Mass Index on06/28/23.Satisfied by LILLIAN Ruiz Angela Pneumococcal Vaccine Older Adults on11/24/23.Satisfied by FAITH Ledbetter Donna Electronic Signature on File Electronically Reviewed/Signed by: Xiao Horan DO Author Signature Dt/Tm:11/24/2023 05:04 PM Department of Family Medicine [facility] Patient Care team information Care Team Personnel Name: Claudia, PhD, Kirby Archer Position: Psych Clin Spec - Peds Adol Med Member Role: Lifetime Relationship Address: [address] [place] [address] [place] Name: Satinder Horan DO, Mariana Annette Position: Physician - Family Med Member Role: Primary Care Provider Address: [address] Name: Emanuel, , Mikael Position: Physician - General Surg Psych Member Role: Lifetime Relationship Address: [address] [place] [address] [place] Care Team Related Persons Name: ANGIE MELARA Name: KOFI LAMA
--- NOTE | 2023-12-30 21:41 | Emergency Department Note ---
Impression & Plan Acute respiratory failure with hypoxia, Alcohol intoxication, Multiple closed fractures of cervical vertebrae, Status post fall, Hypothermia ED Provider Note NAME: ALEXIS LAMA AGE: 68 SEX: M : 1955 ARRIVES VIA: Ambulance INFORMANT: Patient, EMS and nursing reports ED PROVIDER(S): Michael Marinelli MD CHIEF COMPLAINT: Fall, intoxication MEDICAL DECISION MAKING: Patient presented due to concern for likely intoxication and fall. Patient was easily arousable. The patient would desat while asleep. The patient was placed on supplemental nasal cannula. Stark J collar was kept in place in light of the patient's likely intoxication and reported fall. IV was established and blood work was obtained. Patient was noted to be hypothermic and a Giovanna hugger was applied. Patient's blood work shows a normal white count H&H and platelet count. The patient's alcohol 265. The patient CT head negative. Patient does have degenerative changes and progressive cerebral and cerebellar atrophy. No obvious pneumonia on chest x-ray. The patient CT cervical spine shows avulsion fractures and TP fractures. No vertebral body fracture. Unable to clinically clear the patient given his intoxication. I did speak the on-call pathology specialist Dr. Dawson who recommended keeping the patient in a collar. He did review the patient's imaging and suggested CT angiography of the neck to rule out vascular injury. Given the patient's hypoxia and associated fractures and clinical intoxication hypothermia I did speak the on-call hospitalist service and the patient was admitted to the medicine service. Dr. Chan had requested that a CT of the chest to be performed. This was completed. No acute abnormality noted. CT angiography of the neck does not show any evidence of vascular injury. Of note the patient did have improvement in his temperature and the Giovanna hugger was removed around the time of admission. Critical Care: I have personally spent 75 minutes of critical care time in direct management of this patient. This includes bedside care, interpretation of diagnostic studies, and testing, discussion with consultants, patient, and family members, and other require inpatient management activities. This 75 minutes is in excess of all separately billable procedures. Discussion w/ other healthcare providers: Dr. Chan inpatient medicine service Prior /Outside records reviewed: none Differential diagnosis: Fracture, dislocation, contusion, strain, sprain, ICH, hemothorax, intra- abdominal injury, anemia among other causes were considered. Diagnostics, as interpreted by me: ECG: V paced rhythm, rate of 60, wide QRS left bundle branch block pattern, left axis deviation no obvious Sgarbossa criteria noted. Cardiac monitoring: An order was placed for continuous cardiac monitoring. The monitor shows a rate of 65 with paced rhythm. Patient was placed on pulse oximetry Medical decision rules: None Imaging studies: I informally interpreted the patient's chest x-ray does not show obvious pneumothorax with formal report to follow. HPI: Patient presents due to concern for presumptive fall and intoxication. Reportedly there was a loud thump that was heard in the apartment below and they called for a welfare check and the patient was reportedly on the ground with a empty bottle of biliary Khorrami. Patient reportedly is on Eliquis. Patient did have decreased responsiveness and route but BSG was in the 200s and had otherwise reassuring vital signs with the exception of when sleeping may have dip down to 88% was placed on 2 L. Patient is easily arousable at the bedside but mildly somnolent does move all 4 extremities. EMS reported the patient did feel cool to the touch. PAST MEDICAL HISTORY: See Below PAST SURGICAL HISTORY: See Below SOCIAL HISTORY: See Below HOME MEDICATIONS: See Below ALLERGIES: See Below VITALS: See Below PHYSICAL EXAMINATION: GENERAL: NAD, non-toxic. EYE EXAM: Normal conjunctiva. PERRL, no anisocoria and EOM's grossly intact w/o pain. OROPHARYNX: Moist mucus membranes, grossly normal dentition. NECK: Trachea midline, no stridor. Supple, no nuchal rigidity, no adenopathy, non-tender. No signs of meningismus. FROM of the neck with good chin to chest and neck extension. LUNGS: Clear to auscultation. Normal chest wall mechanics. HEART: NSR, no MRG. ABDOMEN: Abdomen soft, non-tender, no masses, no rebound or guarding. BACK: No CVA TTP. SKIN: No rashes and no bruising. UPPER EXTREMITIES: Upper extremities are grossly normal. LOWER EXTREMITIES: Grossly normal, no edema. Cool extremities. NEURO EXAM: A&O x3, cranial nerves II-XII grossly intact, normal speech, moves all 4 extremities. Past Med/Surg History Problem List (Updated 12/31/23 @ 18:06 by Michael Marinelli MD) Hypothermia (Acute) Fracture of cervical vertebra, C6 C5 cervical fracture C2 cervical fracture Status post fall (Acute) Acute respiratory failure with hypoxia (Acute) Multiple closed fractures of cervical vertebrae (Acute) Alcohol intoxication (Acute) DM (diabetes mellitus), type 2, uncontrolled w/neurologic complication (Acute) Factor V Leiden mutation (Acute) on warfarin daily Fatty liver (Chronic) ? 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) Morbid obesity (Chronic) CHRISTIANO (obstructive sleep apnea) (Acute) cpap Vitamin D deficiency (Chronic) Chronic anticoagulation Diabetic neuropathy (Chronic) Edema (Acute) Ambulatory dysfunction Complete heart block Status post placement of cardiac pacemaker Anemia History of DVT (deep vein thrombosis) Diastolic congestive heart failure Uncontrolled type 2 diabetes mellitus Loss of protective sensation of skin of foot Non-proliferative diabetic retinopathy, both eyes Vitreous hemorrhage Medical History Hives Supratherapeutic INR On anticoagulant therapy warfarin daily Bradycardia Hyperglobulinemia DVT, lower extremity ? pt denies Surgical History Status post appendectomy History of colonoscopy History of wisdom tooth extraction History of tooth extraction S/P tonsillectomy Family History Father Coronary heart disease Myocardial infarction Mother COPD (chronic obstructive pulmonary disease) Stroke Family history of diabetes mellitus Diabetes Brother Prostate cancer Coronary heart disease Grandfather (Paternal) Family history of diabetes mellitus Grandmother (Paternal) Family history of diabetes mellitus Other No family history of adverse response to anesthesia Denies family history of Ovarian cancer Breast cancer Colorectal cancer Social History Smoking Status: Never smoker Tobacco Type: Smokeless Tobacco (Dip or Chew) Second Hand Exposure: Yes (parents smoked); Do You Dip or Chew Tobacco: Yes; Hx Alcohol Use: No Hx Substance Use: No Preferred Language: Lithuanian Communication Ability: Effective Visual Impairment: Limited Hearing Ability: Normal Framing Consultant Required: No Beliefs That Will Affect Care: None marital status: Life Partner Current Living Situation: Alone Current Living Situation Comment: Lives with sister current occupational status: retired and disabled current occupation: [employer] Feels Safe at Home: Yes Safety Concerns: Feels Safe At This Time Childhood Exposure to Second-Hand Smoke: No Diet: diabetic caffeine: Yes Dental Care, Regularly: No Physical Activity Frequency: Does not Exercise Seatbelt Use: always Assistive Devices: None Allergies Allergies Allergy/AdvReac Type Severity Reaction Status Date / Time ceftriaxone Allergy Severe Hives Verified 05/19/23 15:24 Sulfa (Sulfonamide Allergy Intermediate HIVES-ITCHY Verified 05/19/23 15:24 Antibiotics) RASH Home Meds Previous Rx's Medication Instructions Recorded acetaminophen 325 mg tablet 650 mg (2 x 325 mg) PO Q6H PRN 02/18/21 pain #30 tabs ketoconazole 2 % topical cream 1 applic topical DAILY 3 weeks #60 02/25/21 grams metoprolol tartrate 50 mg tablet 50 mg PO BID #60 tabs 03/15/21 rivaroxaban 20 mg tablet (Xarelto) 20 mg PO DAILY #90 tabs 03/24/21 ergocalciferol (vitamin D2) 1,250 50,000 unit PO Q7D@0900 #14 caps 06/21/21 mcg (50,000 unit) capsule blood-glucose meter (Accu-Chek #1 ea 04/27/22 Guide Me Glucose Meter) lancets 30 gauge (OneTouch Delica #25 ea 04/27/22 Lancets) blood sugar diagnostic (OneTouch #300 ea 02/23/23 Ultra Test strips) cephalexin 500 mg capsule 500 mg PO TID #30 caps 04/21/23 sildenafil 100 mg tablet 100 mg PO DAILY #30 tabs 04/21/23 atorvastatin 20 mg tablet 20 mg PO QAM #90 tabs 06/09/23 furosemide 80 mg tablet 80 mg PO QAM #90 tabs 06/09/23 lancets (Accu-Chek Softclix #300 ea 06/09/23 Lancets) lisinopril 10 mg tablet 10 mg PO QAM #90 tabs 06/09/23 metformin 1,000 mg tablet 1,000 mg PO BID #180 tabs 06/09/23 insulin syringe-needle U-100 1 mL #300 ea 08/21/23 31 gauge x 5/16" (BD Insulin Syringe Ultra-Fine) gabapentin 300 mg capsule 300 mg PO DAILY #30 caps 09/13/23 insulin human U-100 NPH-regulr 20 - 50 unit (0.2 - 0.5 mL) subcut 10/31/23 70-30 mix 100 unit/mL subcutaneous TID #30 mL susp (Novolin 70/30 U-100 Insulin) Results & Data (ED) Vital Signs Vital Signs - 24 hr 12/30/23 21:38 12/30/23 21:40 12/30/23 21:47 Temperature 35.1 C L Temperature Source Rectal Pulse Rate 64 61 Pulse Rate [Apical] Respiratory Rate 19 Blood Pressure 122/79 Blood Pressure [Left Radial Artery] Blood Pressure Mean 93 Blood Pressure Mean [Left Radial Artery] Pulse Oximetry 94 94 Oxygen Delivery Method Room Air Room Air Oxygen Flow Rate Sepsis Recent Fever Within 48 Hours No Sepsis New/Unexplained Change in Mental Status No Sepsis Action Taken by Nursing No Action Required 12/30/23 21:51 12/30/23 22:38 12/30/23 22:51 Temperature 35.5 C L Temperature Source Rectal Pulse Rate Pulse Rate [Apical] 60 Respiratory Rate 20 Blood Pressure Blood Pressure [Left Radial Artery] 146/70 H Blood Pressure Mean Blood Pressure Mean [Left Radial Artery] 95 Pulse Oximetry 94 93 Oxygen Delivery Method Room Air Nasal Cannula Oxygen Flow Rate 5 Sepsis Recent Fever Within 48 Hours Sepsis New/Unexplained Change in Mental Status Sepsis Action Taken by Long-Term Medications Current Medication List: was personally reviewed by me Laboratory Data Attestation: I reviewed the patient's lab results. 12/31/23 05:43 12/31/23 05:43 Lab Results 12/30/23 Range/Units 22:19 WBC 6.43 (4.8-10.8) K/ul RBC 4.91 (4.70-6.10) M/uL Hgb 14.3 (14.0-18.0) g/dl Hct 43.8 (42.0-52.0) % MCV 89.2 (80.0-100.0) fL MCH 29.1 (25.0-34.0) pg MCHC 32.6 (32.0-36.0) g/dL RDW Std Deviation 42.6 (36.4-46.3) fL RDW Coeff of Morena 13.0 (11.5-14.5) % Plt Count 343 (130-400) K/uL MPV 11.0 (9.4-12.4) fL Immature Gran % (Auto) 0.9 % Neut % (Auto) 63.6 % Lymph % (Auto) 23.2 % Fleming % (Auto) 9.5 % Eos % (Auto) 1.9 % Baso % (Auto) 0.9 % Neut # (Auto) 4.09 (1.40-6.50) K/uL Lymph # (Auto) 1.49 (1.20-3.40) K/uL Fleming # (Auto) 0.61 H (0.11-0.59) K/uL Eos # (Auto) 0.12 (0.00-0.50) K/uL Baso # (Auto) 0.06 (0.00-0.20) K/uL Immature Gran # (Auto) 0.06 (0.01-0.20) K/uL PT 10.8 (9.0-12.0) Seconds INR 1.0 (0.9-1.1) APTT 32 H (21-31) Seconds PTT Ratio 1.2 Sodium 134 L (136-145) mmol/L Potassium 3.6 (3.5-5.1) mmol/L Chloride 101 (98-107) mmol/L Carbon Dioxide 26 (21-32) mmol/L Anion Gap 7 (3-11) BUN 9 (6-23) mg/dl Creatinine 0.68 (0.6-1.4) mg/dl Est Cr Clr Drug Dosing 145.8 ml/min eGFR 101.88 BUN/Creatinine Ratio 13.2 (10-20) Glucose 207 H (70-99(Fasting)) mg/dl Calcium 8.9 (8.6-10.3) mg/dl Magnesium 2.2 (1.7-2.4) mg/dl Total Bilirubin 0.3 (0.2-1.0) mg/dl AST 19 (13-39) U/L ALT 11 (7-52) U/L Alkaline Phosphatase 77 (34-104) U/L Total Protein 6.8 (6.0-8.3) gm/dl Albumin 3.3 L (3.4-5.0) gm/dl Globulin 3.5 (2.5-4.0) gm/dl Albumin/Globulin Ratio 0.9 (0.9-2) Ethyl Alcohol mg/dL 265.3 H (<10.0) mg/dl Administered Medications Pantoprazole Sodium (Protonix) 40 mg in 10 mls @ 5 mls/min IV QAM [facility] Stop: 01/30/24 08:59 Last Admin: 12/31/23 10:55 Dose: 5 mls/min Documented By: NELLI Insulin Aspart (Insulin Aspart Per Unit Charge) 0 units SC ACHS [facility] Stop: 01/30/24 05:59 Last Admin: 12/31/23 17:35 Dose: 6 units Documented By: NELLI Co-signed By: RAMIREZ Insulin Glargine (Lantus Per Unit Charge) 12 units SQ BID [facility] Stop: 01/30/24 01:26 Last Admin: 12/31/23 10:51 Dose: 12 units Documented By: NELLI Co-signed By: Admin: 12/31/23 02:55 Dose: 12 units Documented By: JUANY Co-signed By: LIN Discontinued Medications Levofloxacin/Dextrose (Levaquin/D5w) 750 mg in 150 mls @ 100 mls/hr IV Q24H [facility]; Protocol Stop: 01/05/24 03:59 Last Infusion: 12/31/23 06:13 Dose: Infused Documented By: Admin: 12/31/23 04:38 Dose: 100 mls/hr Documented By: JUANY Insulin Aspart (Insulin Aspart Per Unit Charge) 0 units SC Q6 [facility] Stop: 01/30/24 05:59 Last Admin: 12/31/23 12:37 Dose: Not Given Documented By: NELLI Co-signed By: RAMIREZ Admin: 12/31/23 06:19 Dose: 2 units Documented By: JUANY Co-signed By: LNI Insulin Aspart (Insulin Aspart Per Unit Charge) 0 units SC ONE ONE Stop: 12/31/23 12:16 Last Admin: 12/31/23 12:36 Dose: 4 units Documented By: NELLI Co-signed By: RAMIREZ Ioversol (Optiray 320 125ml) 119 ml IV ONCE ONE Stop: 12/31/23 00:05 Last Admin: 12/31/23 00:04 Dose: 119 ml Documented By: FREDDY Menthol (Cough Drop (Sugar Free) Sanjay 24 Sanjay/1 Box) Confirm Administered Dose 24 sanjay BUCCAL .STK-MED ONE Stop: 12/31/23 16:43 Last Admin: 12/31/23 17:37 Dose: Not Given Documented By: Imaging Data Radiologist's Impression: Cervical Spine CT 12/30/23 21:47 Exam(s): CT C SPINE EXAM: CT Cervical Spine Without Intravenous Contrast CLINICAL HISTORY: fall. TECHNIQUE: Axial computed tomography images of the cervical spine without intravenous contrast. CTDI is 38.49 mGy and DLP is 1919.61 mGy-cm. Automated exposure control was utilized for the study. A dose lowering technique was utilized adhering to the principles of ALARA. COMPARISON: No relevant prior studies available. FINDINGS: Vertebrae: There are mildly displaced avulsion fractures involving the right inferior second transverse process and the right posterior fifth, the right sixth and seventh transverse processes, best appreciated on coronal reformatted imaging. The cervical vertebral bodies are intact without acute traumatic injury. There is straightening of the normal cervical lordosis. The pedicles, the facet joints, spinous processes and the remaining transverse processes are intact. Discs/spinal canal/neural foramina: Diffuse disc space narrowing with marginal hypertrophic osteophyte changes noted throughout the cervical spine, most prominent at C5-6 and C6-7. Mild osseous canal stenosis noted secondary to degenerative disc spondylosis and calcification of the posterior longitudinal ligament. Degenerative ankylosis noted involving the C4-5 disc. Soft tissues: Heterotopic calcification in the dorsal soft tissues adjacent to the nuchal ligament. No other significant soft tissue abnormality identified. IMPRESSION: 1. There are mildly displaced avulsion fractures involving the right inferior second transverse process and the right posterior fifth, the right sixth and seventh transverse processes, best appreciated on coronal reformatted imaging. 2. No vertebral body fracture. No fracture involving the pedicles or remaining posterior elements. 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 TECHNIQUE: Frontal view of the chest. COMPARISON: No relevant prior studies available. FINDINGS: Lungs: Poor inspiratory effort. Subtle reticulonodular interstitial changes are of uncertain chronicity or significance. No definite focal airspace consolidation. Pleural space: No definite pleural effusion or pneumothorax, accounting for limitations with supine technique. Heart: The cardiac silhouette is prominent, presumed accentuated by portable AP technique. Mediastinum: The mediastinal contours are grossly unremarkable. No obvious widening. The trachea is midline. No tracheal deviation. Bones/joints: No definite acute osseous abnormality, accounting for limitations. Tubes, lines and devices: Left subclavian dual lead pacer noted. IMPRESSION: Poor inspiratory effort. Subtle reticulonodular interstitial changes are of uncertain chronicity or significance. This may represent subtle vascular congestion, infection or may be artifact with poor inspiratory effort and supine technique. No definite focal airspace consolidation. Electronically signed by: Dominik Garnett MD 12/31/23 00:[address] 12/30/23 21:47 Exam(s): CT HEAD Without Contrast EXAM: CT Head Without Intravenous Contrast CLINICAL HISTORY: fall. TECHNIQUE: Axial computed tomography images of the head/brain without intravenous contrast. CTDI is 38.49 mGy and DLP is 1919.61 mGy-cm. Automated exposure control was utilized for the study. A dose lowering technique was utilized adhering to the principles of ALARA. COMPARISON: CT head without contrast dated 04/01/2016 FINDINGS: Brain: Areas of decreased attenuation in the deep cerebral white matter are consistent with small vessel ischemic/degenerative changes. The cerebral and cerebellar sulci are prominent consistent with brain atrophy. Accounting for motion artifact through the posterior fossa, there is no definite intracranial hemorrhage. No appreciable mass effect. Progressive parenchymal involutional changes but no evidence for focal encephalomalacia. Ventricles: Unremarkable. No ventriculomegaly. Bones/joints: Unremarkable. No acute fracture. Soft tissues: No significant overlying acute traumatic soft tissue abnormality. No radiopaque foreign body. Vasculature: Atherosclerotic disease. Incidental superficial arterial calcification throughout the scalp bilaterally, new from the previous examination. Sinuses: Unremarkable as visualized. No acute sinusitis. Mastoid air cells: Unremarkable as visualized. No mastoid effusion. IMPRESSION: 1. Accounting for mild motion artifact, there is no definite acute intracranial process identified. 2. Incidental chronic progressive small vessel ischemic/degenerative changes. 2. Incidental chronic progressive cerebral and cerebellar atrophy. Electronically signed by: Dominik Garnett MD 12/30/23 22:33 PM Neck CTA 12/30/23 23:13 EXAM: CT angio neck with con CLINICAL HISTORY: eval for vascular injury, etoh, best images due to pt not being able to follow breating instructions injected with 119 cc''s optiray 320 TECHNIQUE: Contrast enhanced thin slice CT angiography scan of the carotid vessels was performed with intravenous contrast. Angiographic images were processed, 3D MIP images were acquired for interpretation. Contiguous axial images were obtained. Reformatted coronal and sagittal images were also reviewed. If IV contrast material had not been administered, the likelihood of detecting abnormalities relevant to the patients condition would have been substantially decreased. CT scan was performed according to ALARA (as low as reasonable achievable). COMPARISON: None. FINDINGS: Few eccentric atherocalcific plaques are noted at: - Left carotid bifurcation - Cavernous portions of bilateral internal carotid arteries - Petrous portion of right internal carotid artery None of these plaques cause significant luminal narrowing. Bilateral internal carotid arteries demonstrate retropharyngeal course. Included great vessels of the aortic arch are grossly unremarkable. Remainder of the common carotid artery, carotid bulb, internal carotid artery, and origin of the external carotid artery are well opacified. Vertebral arteries are well opacified. Jugular veins are well opacified. Included lung apices are grossly unremarkable. Thyroid gland appears unremarkable. Degenerative changes noted in visualized spine. IMPRESSION: 1. No obvious imaging evidence of vascular injury. 2. Atherocalcific plaques in left carotid bifurcation, bilateral cavernous ICAs and right petrous ICA without significant stenosis. 3. Retropharyngeal course of bilateral internal carotid arteries - anatomical variant. Electronically signed by Tom Trejo 12-31-2023 02:[address] 12/30/23 23:36 EXAM: CT chest diagnostic w con CLINICAL HISTORY: respiratory failure with hypoxia, best images, etoh, delayed with contrast due to late spike with angio neck injected with 119 cc''s optiray 320 TECHNIQUE: Contiguous axial images were obtained from the neck base through the upper abdomen without contrast. In addition, sagittal and coronal reconstructions were performed to potentially increase the sensitivity for the detection of disease. CT scan was performed according to ALARA (as low as reasonable achievable). COMPARISON: None. FINDINGS: Few fibrotic bands are noted at: Lingula. Medial segment of right middle lobe. Dual chamber pacemaker is noted in situ . Remaining lungs are clear, with no focal areas of consolidation. No pulmonary nodules are seen. The central airways are patent. There are no pleural effusions. No pneumothorax is seen. Evaluation of the mediastinum and mario is limited due to the lack of intravenous contrast. No axillary or mediastinal adenopathy is identified. The thyroid is unremarkable. The heart, aorta, and pulmonary arteries are of normal size and configuration. There are no appreciable coronary artery and aortic atherosclerotic calcifications. No pericardial effusion is identified. Imaged portions of the upper abdomen are unremarkable. No aggressive appearing osseous lesions are identified. IMPRESSION: 1. No acute abnormality. Electronically signed by Tom Trejo 12-31-2023 02:16 AM Discharge Plan Visit Data Chief Complaint: Trauma Stated Complaint: ALCOHOL OVERDOSE, FELL, HIT HEAD ED Provider: Michael Marinelli Discharge Problem: Acute respiratory failure with hypoxia, Alcohol intoxication, Multiple closed fractures of cervical vertebrae, Status post fall, Hypothermia Patient Disposition: Admitted As Inpatient Discharge Instructions Interventions: ED Discharge Assessment Last Done: 12/31/23 00:49 Discharge Problem: Alcohol intoxication Qualifiers: Complication of substance-induced condition: uncomplicated Qualified Code(s): F 10.920 - Alcohol use, unspecified with intoxication, uncomplicated Multiple closed fractures of cervical vertebrae Qualifiers: Encounter type: initial encounter Qualified Code(s): S12.9XXA - Fracture of neck, unspecified, initial encounter Hypothermia Qualifiers: Encounter type: initial encounter Qualified Code(s): T68.XXXA - Hypothermia, initial encounter
[2023-12-30 22:32] LABS: Basophils # (auto) 0.06 K/uL (0.00-0.20); Basophils % (auto) 0.9 %; Eosinophils # (auto) 0.12 K/uL (0.00-0.50); Eosinophils % (auto) 1.9 %; Hematocrit (blood only) 43.8 % (42.0-52.0); Hemoglobin 14.3 g/dl (14.0-18.0); Immature Granulocytes # (auto) 0.06 K/uL (0.01-0.20); Immature Granulocytes % (auto) 0.9 %; Lymphocytes # (auto) 1.49 K/uL (1.20-3.40); Lymphocytes % (auto) 23.2 %; Mean Corpuscular Hemoglobin 29.1 pg (25.0-34.0); Mean Corpuscular Hgb Conc 32.6 g/dL (32.0-36.0); Mean Corpuscular Volume 89.2 fL (80.0-100.0); Monocytes # (auto) 0.61 K/uL (0.11-0.59); Monocytes % (auto) 9.5 %; Neutrophils # (auto) 4.09 K/uL (1.40-6.50); Neutrophils % (auto) 63.6 %; Platelet Count 343 K/uL (130-400); RDW Standard Deviation 42.6 fL (36.4-46.3); Red Blood Count 4.91 M/uL (4.70-6.10); White Blood Count 6.43 K/ul (4.8-10.8)
--- NOTE | 2023-12-30 22:32 | CT Scan Report ---
Exam(s): CT C SPINE EXAM: CT Cervical Spine Without Intravenous Contrast CLINICAL HISTORY: fall. TECHNIQUE: Axial computed tomography images of the cervical spine without intravenous contrast. CTDI is 38.49 mGy and DLP is 1919.61 mGy-cm. Automated exposure control was utilized for the study. A dose lowering technique was utilized adhering to the principles of ALARA. COMPARISON: No relevant prior studies available. FINDINGS: Vertebrae: There are mildly displaced avulsion fractures involving the right inferior second transverse process and the right posterior fifth, the right sixth and seventh transverse processes, best appreciated on coronal reformatted imaging. The cervical vertebral bodies are intact without acute traumatic injury. There is straightening of the normal cervical lordosis. The pedicles, the facet joints, spinous processes and the remaining transverse processes are intact. Discs/spinal canal/neural foramina: Diffuse disc space narrowing with marginal hypertrophic osteophyte changes noted throughout the cervical spine, most prominent at C5-6 and C6-7. Mild osseous canal stenosis noted secondary to degenerative disc spondylosis and calcification of the posterior longitudinal ligament. Degenerative ankylosis noted involving the C4-5 disc. Soft tissues: Heterotopic calcification in the dorsal soft tissues adjacent to the nuchal ligament. No other significant soft tissue abnormality identified. IMPRESSION: 1. There are mildly displaced avulsion fractures involving the right inferior second transverse process and the right posterior fifth, the right sixth and seventh transverse processes, best appreciated on coronal reformatted imaging. 2. No vertebral body fracture. No fracture involving the pedicles or remaining posterior elements. Electronically signed by: Dominik Garnett MD 12/30/23 22:30 PM
--- NOTE | 2023-12-30 22:34 | CT Scan Report ---
Exam(s): CT HEAD Without Contrast EXAM: CT Head Without Intravenous Contrast CLINICAL HISTORY: fall. TECHNIQUE: Axial computed tomography images of the head/brain without intravenous contrast. CTDI is 38.49 mGy and DLP is 1919.61 mGy-cm. Automated exposure control was utilized for the study. A dose lowering technique was utilized adhering to the principles of ALARA. COMPARISON: CT head without contrast dated 04/01/2016 FINDINGS: Brain: Areas of decreased attenuation in the deep cerebral white matter are consistent with small vessel ischemic/degenerative changes. The cerebral and cerebellar sulci are prominent consistent with brain atrophy. Accounting for motion artifact through the posterior fossa, there is no definite intracranial hemorrhage. No appreciable mass effect. Progressive parenchymal involutional changes but no evidence for focal encephalomalacia. Ventricles: Unremarkable. No ventriculomegaly. Bones/joints: Unremarkable. No acute fracture. Soft tissues: No significant overlying acute traumatic soft tissue abnormality. No radiopaque foreign body. Vasculature: Atherosclerotic disease. Incidental superficial arterial calcification throughout the scalp bilaterally, new from the previous examination. Sinuses: Unremarkable as visualized. No acute sinusitis. Mastoid air cells: Unremarkable as visualized. No mastoid effusion. IMPRESSION: 1. Accounting for mild motion artifact, there is no definite acute intracranial process identified. 2. Incidental chronic progressive small vessel ischemic/degenerative changes. 2. Incidental chronic progressive cerebral and cerebellar atrophy. Electronically signed by: Dominik Garnett MD 12/30/23 22:33 PM
[2023-12-30 22:46] LABS: Albumin Level 3.3 gm/dl (3.4-5.0); Bilirubin,Total 0.3 mg/dl (0.2-1.0); Calcium 8.9 mg/dl (8.6-10.3); Potassium 3.6 mmol/L (3.5-5.1)
[2023-12-30 22:51] LABS: Albumin Globulin Ratio 0.9 (0.9-2); BUN Creatinine Ratio 13.2 (10-20); Creatinine Clr Calc Pharmacy 145.8 ml/min; Globulin 3.5 gm/dl (2.5-4.0); Total Protein 6.8 gm/dl (6.0-8.3)
[2023-12-30 23:01] LABS: Partial Thromboplastin Ratio 1.2; Partial Thromboplastin Time 32 Seconds (21-31); Prothrombin Time 10.8 Seconds (9.0-12.0)
--- NOTE | 2023-12-30 23:56 | History & Physical Report ---
Date of Service December 30, 2023 Assessment & Plan (1) Multiple closed fractures of cervical vertebrae: (2) Alcohol intoxication: (3) CHRISTIANO (obstructive sleep apnea): (4) Mixed restrictive and obstructive lung disease: (5) History of DVT (deep vein thrombosis): (6) DM (diabetes mellitus), type 2, uncontrolled w/neurologic complication: (7) Status post placement of cardiac pacemaker: (8) Complete heart block: (9) Acute respiratory failure with hypoxia: (10) Status post fall: Plan Multiple closed cervical vertebrae fractures/status post fall secondary to intoxication- NPO CT scan head with no acute findings CT scan chest with no acute findings, but does show chronic interstitial changes CT scan of neck with multiple transverse processes fractures C5-6 and 7, and also C2. CTA neck, without signs of vascular injury Continue hard collar Acetaminophen 1 g IV every 8 hours as needed for mild pain or fever Hold on any further medications until patient is more alert Imaging reviewed by orthopedic spine surgery, and follow-up vascular study with no sign of injury Consult orthopedic spine surgery Dr. Dawson Alcohol intoxication- Alcohol level 265.3 on admission Unknown how extensive alcohol use history is Will hold on AWSS protocol for now, but may be needed during hospitalization Admit to monitored bed Diabetes mellitus- As outpatient on 70-30, 20-50 units SQ 3 times daily Placed on glargine 12 units subcu twice daily with NovoLog SSI Hold metformin History of DVT on chronic anticoagulation- On Xarelto 20 mg daily Unknown when the last dosing was taken Due to fall would hold anticoagulation now Depending on alertness and any potential procedures, anticoagulation may need to be heparin drip Acute respiratory failure with hypoxia- Patient presently on 4 L nasal cannula is 96% pulse ox DuoNebs every 2 hours as needed Has allergic reaction to ceftriaxone with hives Placed on levofloxacin 750 mg IV daily. Unsure if element of aspiration, but not noted on CT of the chest History of Present Illness Chief Complaint: The patient was brought to the emergency department by EMS due to a fall, associated with intoxication while in his apartment. The patient evidently had made a loud noise when he fell, and neighbors called emergency services for a wellness check, and they found him on the ground with an empty bottle of Karami. He was then brought to the emergency department for assessment. Primary Care Provider: Joe Nevarez MD The patient is a 68-year-old male with a past medical history including diabetes mellitus uncontrolled, factor V Leiden mutation, GERD, hypercholesterolemia, hypertension, mixed restrictive and obstructive lung disease, CHRISTIANO, complete heart block status post cardiac pacemaker, history of DVT, and peripheral neuropathy. The patient was brought to the emergency department after emergency services were called to do a wellness check after there was a loud thud in his apartment. He evidently fell, associated with being sleepy severely intoxicated, and was brought to the emergency department for assessment. In the emergency department, patient was able to move all 4 extremities, and was noted to be somnolent. During my examination, the patient was sleeping very soundly, was difficult to arouse, but was able to open eyes to name being called. Alc ohol level was noted to be 265.3, glucose upon laboratory findings was 207. The patient had a temperature of 35.1, and was placed on a Giovanna hugger, with improvement to 37 Allergies Allergy/AdvReac Type Severity Reaction Status Date / Time ceftriaxone Allergy Severe Hives Verified 05/19/23 15:24 Sulfa (Sulfonamide Allergy Intermediate HIVES-ITCHY Verified 05/19/23 15:24 Antibiotics) RASH Home Medications Medication Instructions Recorded Confirmed Type acetaminophen 325 mg tablet 650 mg (2 x 325 mg) PO Q6H PRN 02/18/21 04/21/23 Rx pain #30 tabs ketoconazole 2 % topical cream 1 applic topical DAILY 3 weeks #60 02/25/21 04/21/23 Rx grams metoprolol tartrate 50 mg tablet 50 mg PO BID #60 tabs 03/15/21 04/21/23 Rx rivaroxaban 20 mg tablet (Xarelto) 20 mg PO DAILY #90 tabs 03/24/21 04/21/23 Rx ergocalciferol (vitamin D2) 1,250 50,000 unit PO Q7D@0900 #14 caps 06/21/21 04/21/23 Rx mcg (50,000 unit) capsule blood-glucose meter (Accu-Chek #1 ea 04/27/22 04/21/23 Rx Guide Me Glucose Meter) lancets 30 gauge (OneTouch Delica #25 ea 04/27/22 04/21/23 Rx Lancets) blood sugar diagnostic (OneTouch #300 ea 02/23/23 04/21/23 Rx Ultra Test strips) cephalexin 500 mg capsule 500 mg PO TID #30 caps 04/21/23 04/21/23 Rx sildenafil 100 mg tablet 100 mg PO DAILY #30 tabs 04/21/23 04/21/23 Rx atorvastatin 20 mg tablet 20 mg PO QAM #90 tabs 06/09/23 Rx furosemide 80 mg tablet 80 mg PO QAM #90 tabs 06/09/23 Rx lancets (Accu-Chek Softclix #300 ea 06/09/23 Rx Lancets) lisinopril 10 mg tablet 10 mg PO QAM #90 tabs 06/09/23 Rx metformin 1,000 mg tablet 1,000 mg PO BID #180 tabs 06/09/23 Rx insulin syringe-needle U-100 1 mL #300 ea 08/21/23 Rx 31 gauge x 5/16" (BD Insulin Syringe Ultra-Fine) gabapentin 300 mg capsule 300 mg PO DAILY #30 caps 09/13/23 Rx insulin human U-100 NPH-regulr 20 - 50 unit (0.2 - 0.5 mL) subcut 10/31/23 Rx 70-30 mix 100 unit/mL subcutaneous TID #30 mL susp (Novolin 70/30 U-100 Insulin) Past Med/Surg History Problem List (Updated 12/31/23 @ 03:28 by Jonathon Quiñonez MD) Status post fall Acute respiratory failure with hypoxia Multiple closed fractures of cervical vertebrae Alcohol intoxication DM (diabetes mellitus), type 2, uncontrolled w/neurologic complication (Acute) Factor V Leiden mutation (Acute) on warfarin daily Fatty liver (Chronic) ? 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) Morbid obesity (Chronic) CHRISTIANO (obstructive sleep apnea) (Acute) cpap Vitamin D deficiency (Chronic) Chronic anticoagulation Diabetic neuropathy (Chronic) Edema (Acute) Ambulatory dysfunction Complete heart block Status post placement of cardiac pacemaker Anemia History of DVT (deep vein thrombosis) Diastolic congestive heart failure Uncontrolled type 2 diabetes mellitus Loss of protective sensation of skin of foot Non-proliferative diabetic retinopathy, both eyes Vitreous hemorrhage Medical History Hives Supratherapeutic INR On anticoagulant therapy Bradycardia Vitamin D deficiency CHRISTIANO (obstructive sleep apnea) Hypertension Hyperglobulinemia Hypercholesterolemia Generalized OA Gastroesophageal reflux disease Fatty liver Factor V Leiden mutation DVT, lower extremity DM (diabetes mellitus), type 2, uncontrolled w/neurologic complication Surgical History Status post appendectomy History of colonoscopy History of wisdom tooth extraction History of tooth extraction S/P tonsillectomy Family History Father Coronary heart disease Myocardial infarction Mother COPD (chronic obstructive pulmonary disease) Stroke Family history of diabetes mellitus Diabetes Brother Prostate cancer Coronary heart disease Grandfather (Paternal) Family history of diabetes mellitus Grandmother (Paternal) Family history of diabetes mellitus Other No family history of adverse response to anesthesia Denies family history of Ovarian cancer Breast cancer Colorectal cancer Social History Smoking Status: Never smoker Tobacco Type: Smokeless Tobacco (Dip or Chew) Second Hand Exposure: Yes (parents smoked); Do You Dip or Chew Tobacco: Yes; Hx Alcohol Use: No Hx Substance Use: No Preferred Language: Lithuanian Communication Ability: Effective Visual Impairment: Limited Hearing Ability: Normal Fire Protection Engineer Required: No Beliefs That Will Affect Care: None marital status: Life Partner Current Living Situation: Alone Current Living Situation Comment: Lives with sister current occupational status: retired and disabled current occupation: [employer] Feels Safe at Home: Yes Safety Concerns: Feels Safe At This Time Childhood Exposure to Second-Hand Smoke: No Diet: diabetic caffeine: Yes Dental Care, Regularly: No Physical Activity Frequency: Does not Exercise Seatbelt Use: always Assistive Devices: None Review of Systems Review of Systems: The patient was not able to contribute HPI or review of systems due to signifi cant intoxication and somnolence state. Information was gathered from emergency services in the ED. Physical Exam Physical Exam: The patient is somnolent, but arousable. normocephalic and atraumatic, lying in bed, wrapped in Giovanna hugger HEENT--PERRL, EOMI, mucous membranes and oropharynx dry. Neck--supple. No JVD. No bruits. Thyroid normal, trachea midline, no adenopathy. Heart--normal S1 and S2. No murmurs, rubs or gallops. Lungs--coarse breath sounds bilaterally. No respiratory distress, no accessory muscle use. Abdomen--normal bowel sounds and soft. Nontender. Nondistended. Morbidly obese Extremities--No edema. Dermatologic--skin initially was cool, but improving with bear hugger Neurologic--cranial nerves II through XII grossly intact. Rheumatologic--limited exam Psychiatric--somnolent Results & Data Results & Data Vital Signs (Past 12 Hours) Vital Signs Temp Pulse Pulse Resp BP BP Pulse Ox 12/30/23 22:51 35.5 C L 12/30/23 22:38 60 20 146/70 H 93 12/30/23 21:51 94 12/30/23 21:47 94 12/30/23 21:40 61 12/30/23 21:38 35.1 C L 64 19 122/79 94 O2 Del Method O2 Flow Rate 12/30/23 22:51 12/30/23 22:38 Nasal Cannula 5 12/30/23 21:51 Room Air 12/30/23 21:47 Room Air 12/30/23 21:40 12/30/23 21:38 Room Air Laboratory Results Laboratory Results WBC 6.43 K/ul (4.8-10.8) 12/30/23 22:19 RBC 4.91 M/uL (4.70-6.10) 12/30/23 22:19 Hgb 14.3 g/dl (14.0-18.0) 12/30/23 22:19 Hct 43.8 % (42.0-52.0) 12/30/23 22:19 MCV 89.2 fL (80.0-100.0) 12/30/23 22:19 MCH 29.1 pg (25.0-34.0) 12/30/23 22:19 MCHC 32.6 g/dL (32.0-36.0) 12/30/23 22:19 RDW Std Deviation 42.6 fL (36.4-46.3) 12/30/23 22:19 RDW Coeff of Morena 13.0 % (11.5-14.5) 12/30/23 22:19 Plt Count 343 K/uL (130-400) 12/30/23 22:19 MPV 11.0 fL (9.4-12.4) 12/30/23 22:19 Immature Gran % (Auto) 0.9 % 12/30/23 22:19 Neut % (Auto) 63.6 % 12/30/23 22:19 Lymph % (Auto) 23.2 % 12/30/23 22:19 Pacific % (Auto) 9.5 % 12/30/23 22:19 Eos % (Auto) 1.9 % 12/30/23 22:19 Baso % (Auto) 0.9 % 12/30/23 22:19 Neut # (Auto) 4.09 K/uL (1.40-6.50) 12/30/23 22:19 Lymph # (Auto) 1.49 K/uL (1.20-3.40) 12/30/23 22:19 Pacific # (Auto) 0.61 K/uL (0.11-0.59) H 12/30/23 22:19 Eos # (Auto) 0.12 K/uL (0.00-0.50) 12/30/23 22:19 Baso # (Auto) 0.06 K/uL (0.00-0.20) 12/30/23 22:19 Immature Gran # (Auto) 0.06 K/uL (0.01-0.20) 12/30/23 22:19 PT 10.8 Seconds (9.0-12.0) 12/30/23 22:19 INR 1.0 (0.9-1.1) 12/30/23 22:19 APTT 32 Seconds (21-31) H 12/30/23 22:19 PTT Ratio 1.2 12/30/23 22:19 Sodium 134 mmol/L (136-145) L 12/30/23 22:19 Potassium 3.6 mmol/L (3.5-5.1) 12/30/23 22:19 Chloride 101 mmol/L (98-107) 12/30/23 22:19 Carbon Dioxide 26 mmol/L (21-32) 12/30/23 22:19 Anion Gap 7 (3-11) 12/30/23 22:19 BUN 9 mg/dl (6-23) 12/30/23 22:19 Creatinine 0.68 mg/dl (0.6-1.4) 12/30/23 22:19 Est Cr Clr Drug Dosing 145.8 ml/min 12/30/23 22:19 eGFR 101.88 12/30/23 22:19 BUN/Creatinine Ratio 13.2 (10-20) 12/30/23 22:19 Glucose 207 mg/dl (70-99(Fasting)) H 12/30/23 22:19 POC Glucose 182 mg/dl (70-99) H 12/31/23 01:42 Calcium 8.9 mg/dl (8.6-10.3) 12/30/23 22:19 Magnesium 2.2 mg/dl (1.7-2.4) 12/30/23 22:19 Total Bilirubin 0.3 mg/dl (0.2-1.0) 12/30/23 22:19 AST 19 U/L (13-39) 12/30/23 22:19 ALT 11 U/L (7-52) 12/30/23 22:19 Alkaline Phosphatase 77 U/L (34-104) 12/30/23 22:19 Total Protein 6.8 gm/dl (6.0-8.3) 12/30/23 22:19 Albumin 3.3 gm/dl (3.4-5.0) L 12/30/23 22:19 Globulin 3.5 gm/dl (2.5-4.0) 12/30/23 22:19 Albumin/Globulin Ratio 0.9 (0.9-2) 12/30/23 22:19 Ethyl Alcohol mg/dL 265.3 mg/dl (<10.0) H 12/30/23 22:[address] 12/30/23 21:47 Exam(s): CT C SPINE EXAM: CT Cervical Spine Without Intravenous Contrast CLINICAL HISTORY: fall. TECHNIQUE: Axial computed tomography images of the cervical spine without intravenous contrast. CTDI is 38.49 mGy and DLP is 1919.61 mGy-cm. Automated exposure control was utilized for the study. A dose lowering technique was utilized adhering to the principles of ALARA. COMPARISON: No relevant prior studies available. FINDINGS: Vertebrae: There are mildly displaced avulsion fractures involving the right inferior second transverse process and the right posterior fifth, the right sixth and seventh transverse processes, best appreciated on coronal reformatted imaging. The cervical vertebral bodies are intact without acute traumatic injury. There is straightening of the normal cervical lordosis. The pedicles, the facet joints, spinous processes and the remaining transverse processes are intact. Discs/spinal canal/neural foramina: Diffuse disc space narrowing with marginal hypertrophic osteophyte changes noted throughout the cervical spine, most prominent at C5-6 and C6-7. Mild osseous canal stenosis noted secondary to degenerative disc spondylosis and calcification of the posterior longitudinal ligament. Degenerative ankylosis noted involving the C4-5 disc. Soft tissues: Heterotopic calcification in the dorsal soft tissues adjacent to the nuchal ligament. No other significant soft tissue abnormality identified. IMPRESSION: 1. There are mildly displaced avulsion fractures involving the right inferior second transverse process and the right posterior fifth, the right sixth and seventh transverse processes, best appreciated on coronal reformatted imaging. 2. No vertebral body fracture. No fracture involving the pedicles or remaining posterior elements. 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 TECHNIQUE: Frontal view of the chest. COMPARISON: No relevant prior studies available. FINDINGS: Lungs: Poor inspiratory effort. Subtle reticulonodular interstitial changes are of uncertain chronicity or significance. No definite focal airspace consolidation. Pleural space: No definite pleural effusion or pneumothorax, accounting for limitations with supine technique. Heart: The cardiac silhouette is prominent, presumed accentuated by portable AP technique. Mediastinum: The mediastinal contours are grossly unremarkable. No obvious widening. The trachea is midline. No tracheal deviation. Bones/joints: No definite acute osseous abnormality, accounting for limitations. Tubes, lines and devices: Left subclavian dual lead pacer noted. IMPRESSION: Poor inspiratory effort. Subtle reticulonodular interstitial changes are of uncertain chronicity or significance. This may represent subtle vascular congestion, infection or may be artifact with poor inspiratory effort and supine technique. No definite focal airspace consolidation. Electronically signed by: Dominik Garnett MD 12/31/23 00:[address] 12/30/23 21:47 Exam(s): CT HEAD Without Contrast EXAM: CT Head Without Intravenous Contrast CLINICAL HISTORY: fall. TECHNIQUE: Axial computed tomography images of the head/brain without intravenous contrast. CTDI is 38.49 mGy and DLP is 1919.61 mGy-cm. Automated exposure control was utilized for the study. A dose lowering technique was utilized adhering to the principles of ALARA. COMPARISON: CT head without contrast dated 04/01/2016 FINDINGS: Brain: Areas of decreased attenuation in the deep cerebral white matter are consistent with small vessel ischemic/degenerative changes. The cerebral and cerebellar sulci are prominent consistent with brain atrophy. Accounting for motion artifact through the posterior fossa, there is no definite intracranial hemorrhage. No appreciable mass effect. Progressive parenchymal involutional changes but no evidence for focal encephalomalacia. Ventricles: Unremarkable. No ventriculomegaly. Bones/joints: Unremarkable. No acute fracture. Soft tissues: No significant overlying acute traumatic soft tissue abnormality. No radiopaque foreign body. Vasculature: Atherosclerotic disease. Incidental superficial arterial calcification throughout the scalp bilaterally, new from the previous examination. Sinuses: Unremarkable as visualized. No acute sinusitis. Mastoid air cells: Unremarkable as visualized. No mastoid effusion. IMPRESSION: 1. Accounting for mild motion artifact, there is no definite acute intracranial process identified. 2. Incidental chronic progressive small vessel ischemic/degenerative changes. 2. Incidental chronic progressive cerebral and cerebellar atrophy. Electronically signed by: Dominik Garnett MD 12/30/23 22:33 PM Neck CTA 12/30/23 23:13 EXAM: CT angio neck with con CLINICAL HISTORY: eval for vascular injury, etoh, best images due to pt not being able to follow breating instructions injected with 119 cc''s optiray 320 TECHNIQUE: Contrast enhanced thin slice CT angiography scan of the carotid vessels was performed with intravenous contrast. Angiographic images were processed, 3D MIP images were acquired for interpretation. Contiguous axial images were obtained. Reformatted coronal and sagittal images were also reviewed. If IV contrast material had not been administered, the likelihood of detecting abnormalities relevant to the patients condition would have been substantially decreased. CT scan was performed according to ALARA (as low as reasonable achievable). COMPARISON: None. FINDINGS: Few eccentric atherocalcific plaques are noted at: - Left carotid bifurcation - Cavernous portions of bilateral internal carotid arteries - Petrous portion of right internal carotid artery None of these plaques cause significant luminal narrowing. Bilateral internal carotid arteries demonstrate retropharyngeal course. Included great vessels of the aortic arch are grossly unremarkable. Remainder of the common carotid artery, carotid bulb, internal carotid artery, and origin of the external carotid artery are well opacified. Vertebral arteries are well opacified. Jugular veins are well opacified. Included lung apices are grossly unremarkable. Thyroid gland appears unremarkable. Degenerative changes noted in visualized spine. IMPRESSION: 1. No obvious imaging evidence of vascular injury. 2. Atherocalcific plaques in left carotid bifurcation, bilateral cavernous ICAs and right petrous ICA without significant stenosis. 3. Retropharyngeal course of bilateral internal carotid arteries - anatomical variant. Electronically signed by Tom Trejo 12-31-2023 02:[address] 12/30/23 23:36 EXAM: CT chest diagnostic w con CLINICAL HISTORY: respiratory failure with hypoxia, best images, etoh, delayed with contrast due to late spike with angio neck injected with 119 cc''s optiray 320 TECHNIQUE: Contiguous axial images were obtained from the neck base through the upper abdomen without contrast. In addition, sagittal and coronal reconstructions were performed to potentially increase the sensitivity for the detection of disease. CT scan was performed according to ALARA (as low as reasonable achievable). COMPARISON: None. FINDINGS: Few fibrotic bands are noted at: Lingula. Medial segment of right middle lobe. Dual chamber pacemaker is noted in situ . Remaining lungs are clear, with no focal areas of consolidation. No pulmonary nodules are seen. The central airways are patent. There are no pleural effusions. No pneumothorax is seen. Evaluation of the mediastinum and mario is limited due to the lack of intravenous contrast. No axillary or mediastinal adenopathy is identified. The thyroid is unremarkable. The heart, aorta, and pulmonary arteries are of normal size and configuration. There are no appreciable coronary artery and aortic atherosclerotic calcifications. No pericardial effusion is identified. Imaged portions of the upper abdomen are unremarkable. No aggressive appearing osseous lesions are identified. IMPRESSION: 1. No acute abnormality. Electronically signed by Tom Trejo 12-31-2023 02:16 AM Code Status & VTE Plan Code Status Full code VTE Prophylaxis Plan VTE Prophylaxis will be ordered: Yes PG Care Time/CCT Total # of Minutes Spent Total Time Spent with Patient: Total time spent is greater than 50% in coordination of care (as documented) at patient's floor/unit and/or counseling patient: Coding Level of Care Code 03161 INT INP/OBS CARE 3/75MIN Diagnoses Multiple closed fractures of cervical vertebrae S12.9XXA Alcohol intoxication F10.929 CHRISTIANO (obstructive sleep apnea) G47.33 Mixed restrictive and obstructive lung disease J44.9; J98.4 History of DVT (deep vein thrombosis) Z86.718 DM (diabetes mellitus), type 2, uncontrolled w/neurologic complication E11.49; E11.65 Status post placement of cardiac pacemaker Z95.0 Complete heart block I44.2 Acute respiratory failure with hypoxia J96.01 Status post fall Z91.81
[2023-12-31] MEDS: OPTIRAY 320 125ml IV ONE (00:04)
--- NOTE | 2023-12-31 00:04 | XRay Report ---
Exam(s): XR CXR 1 VIEW EXAM: XR Chest, 1 View CLINICAL HISTORY: screener, fall, etoh. TECHNIQUE: Frontal view of the chest. COMPARISON: No relevant prior studies available. FINDINGS: Lungs: Poor inspiratory effort. Subtle reticulonodular interstitial changes are of uncertain chronicity or significance. No definite focal airspace consolidation. Pleural space: No definite pleural effusion or pneumothorax, accounting for limitations with supine technique. Heart: The cardiac silhouette is prominent, presumed accentuated by portable AP technique. Mediastinum: The mediastinal contours are grossly unremarkable. No obvious widening. The trachea is midline. No tracheal deviation. Bones/joints: No definite acute osseous abnormality, accounting for limitations. Tubes, lines and devices: Left subclavian dual lead pacer noted. IMPRESSION: Poor inspiratory effort. Subtle reticulonodular interstitial changes are of uncertain chronicity or significance. This may represent subtle vascular congestion, infection or may be artifact with poor inspiratory effort and supine technique. No definite focal airspace consolidation. Electronically signed by: Dominik Garnett MD 12/31/23 00:03 AM
[2023-12-31 00:15] LABS: Magnesium 2.2 mg/dl (1.7-2.4)
[2023-12-31] MEDS ORDERED: ALBUT/IPRATROP 3MG/0.5MG NEB 3 ML VIAL NEB PRN (01:27)
[2023-12-31] MEDS ORDERED: GLUCAGON FOR INJ 1 MG VIAL SQ PRN (01:27)
[2023-12-31] MEDS ORDERED: ACETAMINOPHEN 1000 MG/100 ML IV IV PRN (01:27)
[2023-12-31] MEDS ORDERED: GLUCOSE 10 TAB/TUBE PO PRN (01:27)
[2023-12-31] MEDS ORDERED: ONDANSETRON INJ 2 MG/ML 2 ML VIAL IV PRN (01:27)
[2023-12-31] MEDS ORDERED: DEXTROSE 50% 50 ML SYRINGE IV PRN (01:27)
[2023-12-31] MEDS ORDERED: GLUCOSE 40% GEL 15 GM TUBE PO PRN (01:27)
[2023-12-31] MEDS ORDERED: CARBOHYDRATES FOR HYPOGLYCEMIA PO PRN (01:27)
--- NOTE | 2023-12-31 02:12 | CT Scan Report ---
EXAM: CT angio neck with con CLINICAL HISTORY: eval for vascular injury, etoh, best images due to pt not being able to follow breating instructions injected with 119 cc''s optiray 320 TECHNIQUE: Contrast enhanced thin slice CT angiography scan of the carotid vessels was performed with intravenous contrast. Angiographic images were processed, 3D MIP images were acquired for interpretation. Contiguous axial images were obtained. Reformatted coronal and sagittal images were also reviewed. If IV contrast material had not been administered, the likelihood of detecting abnormalities relevant to the patients condition would have been substantially decreased. CT scan was performed according to ALARA (as low as reasonable achievable). COMPARISON: None. FINDINGS: Few eccentric atherocalcific plaques are noted at: - Left carotid bifurcation - Cavernous portions of bilateral internal carotid arteries - Petrous portion of right internal carotid artery None of these plaques cause significant luminal narrowing. Bilateral internal carotid arteries demonstrate retropharyngeal course. Included great vessels of the aortic arch are grossly unremarkable. Remainder of the common carotid artery, carotid bulb, internal carotid artery, and origin of the external carotid artery are well opacified. Vertebral arteries are well opacified. Jugular veins are well opacified. Included lung apices are grossly unremarkable. Thyroid gland appears unremarkable. Degenerative changes noted in visualized spine. IMPRESSION: 1. No obvious imaging evidence of vascular injury. 2. Atherocalcific plaques in left carotid bifurcation, bilateral cavernous ICAs and right petrous ICA without significant stenosis. 3. Retropharyngeal course of bilateral internal carotid arteries - anatomical variant. Electronically signed by Tom Trejo 12-31-2023 02:12 AM
--- NOTE | 2023-12-31 02:17 | CT Scan Report ---
EXAM: CT chest diagnostic w con CLINICAL HISTORY: respiratory failure with hypoxia, best images, etoh, delayed with contrast due to late spike with angio neck injected with 119 cc''s optiray 320 TECHNIQUE: Contiguous axial images were obtained from the neck base through the upper abdomen without contrast. In addition, sagittal and coronal reconstructions were performed to potentially increase the sensitivity for the detection of disease. CT scan was performed according to ALARA (as low as reasonable achievable). COMPARISON: None. FINDINGS: Few fibrotic bands are noted at: Lingula. Medial segment of right middle lobe. Dual chamber pacemaker is noted in situ . Remaining lungs are clear, with no focal areas of consolidation. No pulmonary nodules are seen. The central airways are patent. There are no pleural effusions. No pneumothorax is seen. Evaluation of the mediastinum and mario is limited due to the lack of intravenous contrast. No axillary or mediastinal adenopathy is identified. The thyroid is unremarkable. The heart, aorta, and pulmonary arteries are of normal size and configuration. There are no appreciable coronary artery and aortic atherosclerotic calcifications. No pericardial effusion is identified. Imaged portions of the upper abdomen are unremarkable. No aggressive appearing osseous lesions are identified. IMPRESSION: 1. No acute abnormality. Electronically signed by Tom Trejo 12-31-2023 02:16 AM
[2023-12-31] MEDS: LANTUS PER UNIT CHARGE SQ SCH (02:55)
[2023-12-31] MEDS: levoFLOXacin/D5W 750 MG/150 ML BAG IV SCH (04:38)
[2023-12-31] MEDS: INSULIN ASPART PER UNIT CHARGE SC SCH ×2 (06:19→17:35)
[2023-12-31 06:25] LABS: Basophils # (auto) 0.05 K/uL (0.00-0.20); Basophils % (auto) 0.8 %; Eosinophils # (auto) 0.11 K/uL (0.00-0.50); Eosinophils % (auto) 1.8 %; Hematocrit (blood only) 43.6 % (42.0-52.0); Hemoglobin 14.7 g/dl (14.0-18.0); Immature Granulocytes # (auto) 0.06 K/uL (0.01-0.20); Lymphocytes # (auto) 1.73 K/uL (1.20-3.40); Lymphocytes % (auto) 28.2 %; Mean Corpuscular Hemoglobin 29.6 pg (25.0-34.0); Mean Corpuscular Hgb Conc 33.7 g/dL (32.0-36.0); Mean Corpuscular Volume 87.7 fL (80.0-100.0); Mean Platelet Volume 11.2 fL (9.4-12.4); Monocytes # (auto) 0.64 K/uL (0.11-0.59); Monocytes % (auto) 10.4 %; Neutrophils # (auto) 3.55 K/uL (1.40-6.50); Neutrophils % (auto) 57.8 %; Platelet Count 338 K/uL (130-400); RDW Standard Deviation 41.9 fL (36.4-46.3); Red Blood Count 4.97 M/uL (4.70-6.10); White Blood Count 6.14 K/ul (4.8-10.8)
[2023-12-31 06:45] LABS: Partial Thromboplastin Ratio 1.2; Partial Thromboplastin Time 32 Seconds (21-31); Prothrombin Time 10.8 Seconds (9.0-12.0)
[2023-12-31 06:48] LABS: Albumin Globulin Ratio 0.9 (0.9-2); BUN Creatinine Ratio 9.7 (10-20); Bilirubin,Total 0.3 mg/dl (0.2-1.0); Calcium 8.6 mg/dl (8.6-10.3); Creatinine Clr Calc Pharmacy 154.7 ml/min; Globulin 3.5 gm/dl (2.5-4.0); Magnesium 2.1 mg/dl (1.7-2.4); Potassium 3.8 mmol/L (3.5-5.1); Total Protein 6.5 gm/dl (6.0-8.3)
--- NOTE | 2023-12-31 07:18 | Hospitalist Progress Note ---
Date of Service December 31, 2023 Assessment & Plan (1) Multiple closed fractures of cervical vertebrae: (2) Alcohol intoxication: (3) CHRISTIANO (obstructive sleep apnea): (4) Mixed restrictive and obstructive lung disease: (5) History of DVT (deep vein thrombosis): (6) DM (diabetes mellitus), type 2, uncontrolled w/neurologic complication: (7) Status post placement of cardiac pacemaker: (8) Complete heart block: (9) Acute respiratory failure with hypoxia: (10) Status post fall: Plan #Multiple closed cervical vertebrae fractures/status post fall secondary to intoxication- Pt is s/p fall at home due to intoxication. ED ordered multiple images: CT scan head with no acute findings, CT scan chest with no acute findings, but does show chronic interstitial changes. CT scan of neck with multiple transverse processes fractures C5-6 and 7, and also C2. CTA neck, without signs of vascular injury. Pt presenting this morning without significant c/o cervical or head pain, able to actively move all 4 limbs and demonstrates trunk control. He has sensation at all 4 limbs and denies numbness or tingling beyond pre-existing diabetic neuropathy. Wearing Delta cervical collar, but required readjusting. - Acetaminophen 1 g IV every 8 hours as needed for mild pain - Consult orthopedic spine surgery Dr. Dawson, via TIAN Dong recommends no immediate procedures. #Alcohol intoxication- Alcohol level 265.3 on admission. Pt denies daily alcohol use, stating he has not drank in more than a year. Will continue to hold on AWSS protocol for now, however plan to monitor pt for signs of alcohol withdrawal while hospitalized. #Diabetes mellitus- A1c in ED was 12.5% indicating uncontrolled DM. Pt reports he checks BSG at home with average reading in 160-180s. As outpatient, on Ozempic as well as metformin 1000mg BID. Further investigation for optimized basal dosage during this hospital stay. -Continue glargine 12 units BID with NovoLog SSI - Holding metformin #History of DVT on chronic anticoagulation- According to last visit note from PCP on 11/24/23, anticoagulation was not listed as current medication - Holding anticoagulation for DVT prophylaxis due to recent fall. -SCDs while in bed #Acute respiratory failure with hypoxia- Patient on 4 L nasal cannula is 96% pulse ox. DuoNebs started upon admission every 2 hours as needed. No current c/o chest tightness, difficulty breathing, cough or congestion. Placed on IV Levofloxacin 750mg q24 incase of aspiration. CT chest was clear. - DC levofloxacin - Plan to wean from supplemental oxygen Chronic conditions- HTN-Holding lisinopril 20mg HLD- holding rosuvastatin 20mg Edema- Holding Furosemide 20mg Pacemaker/heart block- holding Metoprolol 50mg BID Dispo: Diet: NPO changed to DM2 VTE prophylaxis- SCDs due to recent fall Code: Full Admission and Anticipated Discharge Date Admission Date: December 30, 2023 Supervising Physician Co-Signing Physician Notes Patient seen and examined, chart reviewed, case discussed with Dr. Harper and I agree with the assessment and plan as above except as otherwise noted above. Fall 2/2 ETOH. Pt denies daily alcohol use, last use several months prior to current episode. No signs of withdrawal. Fall w/ displaced avulsion cervical fxrs at 03/13/07/13. [facility]ospine consulted, recommended continuing [place]. No surgical intervention anticipated. Pt with no neck pain at time of bedside visit, gonzales snot remember falling. No ICH on admit imaging. PT/OT pending. Additionally uncontrolled DM A1C 12.5%. Will follow 24 hour requirements and ajust home regimen as needed and will need close PCP vs endocrine followup. At last PSH followup pt was ozempic, 1000mg BID metformin and had been on insulin 70/30 60am and afternoon dose scaled to BSG. Given A1C >10% will require ongoing insulin therapy and would benefit from conversion from 70/30 to basal-bolus with initial basal ~50 of total estimated daily dose if feasible for pt. Near but slightly above goal BSGs this afternoon, parameters tightened. Agree w/ above Subjective Pt is a 68 yo male with PMH of DM2 with neuropathy, HTN, HLD restrictive and obstructive lung disease, CHRISTIANO, Heart block with cardiac pacemaker, morbid obesity, and hx of DVT who was brought to ED after being found on the floor of his apartment secondary to assumed fall. Pt's blood alcohol level was found to be 265. Pt was somnolent though his admission physical exam, but found to have multiple closed cervical fractures, but he was able to move all four limbs. This morning, pt was asleep but easily aroused. He was alert and oriented. Pt denies significant neck or head pain. Denies dizziness or changes in vision. Pt states was was drinking alcohol last night, but does not regularly drink. He does not remember falling. Pt denies CP, SOB, abdominal pain, nausea, vomiting or diarrhea. He denies weakness and decreased sensation at all 4 extremities. Review of Systems Review of Systems: As per HPI Physical Exam Physical Exam: General: Pt asleep, but easily arousable. No acute distress. Wearing cervical collar, but improperly around his proximal head/covering his mouth. HEENT--PERRL, EOMI, mucous membranes and oropharynx dry. Neck--supple. No JVD. No bruits. Thyroid normal, trachea midline, no adenopathy. Heart--normal S1 and S2. No murmurs, rubs or gallops. Lungs--Minimal air exchange heard bibasilar. No wheezing or rhonchi. No respiratory distress, no accessory muscle use. Abdomen--normal bowel sounds and soft. Nontender. Nondistended. Morbidly obese Extremities--No edema. Neurologic--cranial nerves II through XII grossly intact. MSK: Pt able to move all 4 limbs against gravity. Able to sit EOB without assist demonstrating core strength. Psychiatric--Alert and oriented x 3 Results & Data Results & Data Vital Signs (Past 12 Hours) Vital Signs Temp Pulse Pulse Resp BP BP Pulse Ox 12/31/23 03:45 36.8 C 61 18 182/80 H 96 12/31/23 02:00 12/31/23 01:56 37 C 60 18 134/74 96 12/31/23 01:35 60 12/31/23 00:49 60 18 136/103 H 99 12/31/23 00:32 60 18 129/75 99 12/30/23 23:57 36.5 C 60 18 128/71 99 12/30/23 23:57 36.5 C 60 18 128/71 100 12/30/23 23:57 36.5 C 60 18 128/71 100 12/30/23 22:51 35.5 C L 12/30/23 22:38 60 20 146/70 H 93 12/30/23 21:51 94 12/30/23 21:47 94 12/30/23 21:40 61 12/30/23 21:38 35.1 C L 64 19 122/79 94 O2 Del Method O2 Flow Rate 12/31/23 03:45 Room Air 12/31/23 02:00 Nasal Cannula 4 12/31/23 01:56 Nasal Cannula 4 12/31/23 01:35 12/31/23 00:49 Nasal Cannula 4 12/31/23 00:32 Nasal Cannula 4 12/30/23 23:57 Nasal Cannula 4 12/30/23 23:57 Nasal Cannula 4 12/30/23 23:57 Nasal Cannula 4 12/30/23 22:51 12/30/23 22:38 Nasal Cannula 5 12/30/23 21:51 Room Air 12/30/23 21:47 Room Air 12/30/23 21:40 12/30/23 21:38 Room Air Resident Activity Tracking Resident Involvement: Resident Care Provided Care Provided: Adult Hospital Medicine
[2023-12-31 07:38] LABS: Estimated Average Glucose 312 mg/dl; Hemoglobin A1C 12.5 % (4.5-5.6)
--- NOTE | 2023-12-31 10:19 | Orthopedic Consultation ---
<Statement entered by Francisco Dawson MD - 12/31/23 17:06> Patient seen and examined earlier today, aagree with HPI, exam and plan documented by Alta Cheatham PA-C. Follow up in office for flex ex xrays in approximately 2 weeks. Maintain Collar until then, call or return to ER with any worsening pain or neurologic symptoms. Date of Service December 31, 2023 Assessment & Plan (1) C2 cervical fracture: (2) C5 cervical fracture: (3) Fracture of cervical vertebra, C6: History of Present Illness Reason for Consultation: Multiple cervical transverse process fractures Requesting Physician: . Attending Physician: Mau Ibarra MD Waylon is a 68-year-old male who is being consulted today from orthopedic spine surgery due to multiple transverse process fractures in the cervical spine that were found on imaging last night in the emergency department. He was taken to the emergency department by EMS due to a possible fall as well as intoxication. An above neighbor from his apartment called for a welfare check and he was found to be on the floor. Orthopedic spine surgery being consulted today due to some fractures that were found in his cervical spine. He was placed in a hard collar last evening as ED did reach out to Dr. Dawson. Dr. Frazier did recommend a hard collar as well as a CTA of the neck to evaluate for vertebral arteries. At today's visit, the patient is easily arousable. He is able to tell me his name and date of . He is little lethargic today. Denies any neck pain. His c- collar was detention up his face upon my arrival. The patient did not have any questions or concerns. He denies any acute neurological deficits, bowel or bladder disturbances or constitutional symptoms at today's visit. Allergies Allergy/AdvReac Type Severity Reaction Status Date / Time ceftriaxone Allergy Severe Hives Verified 05/19/23 15:24 Sulfa (Sulfonamide Allergy Intermediate HIVES-ITCHY Verified 05/19/23 15:24 Antibiotics) RASH Home Medications Medication Instructions Recorded Confirmed Type acetaminophen 325 mg tablet 650 mg (2 x 325 mg) PO Q6H PRN 02/18/21 04/21/23 Rx pain #30 tabs ketoconazole 2 % topical cream 1 applic topical DAILY 3 weeks #60 02/25/21 04/21/23 Rx grams metoprolol tartrate 50 mg tablet 50 mg PO BID #60 tabs 03/15/21 04/21/23 Rx rivaroxaban 20 mg tablet (Xarelto) 20 mg PO DAILY #90 tabs 03/24/21 04/21/23 Rx ergocalciferol (vitamin D2) 1,250 50,000 unit PO Q7D@0900 #14 caps 06/21/21 04/21/23 Rx mcg (50,000 unit) capsule blood-glucose meter (Accu-Chek #1 ea 04/27/22 04/21/23 Rx Guide Me Glucose Meter) lancets 30 gauge (OneTouch Delica #25 ea 04/27/22 04/21/23 Rx Lancets) blood sugar diagnostic (OneTouch #300 ea 02/23/23 04/21/23 Rx Ultra Test strips) cephalexin 500 mg capsule 500 mg PO TID #30 caps 04/21/23 04/21/23 Rx sildenafil 100 mg tablet 100 mg PO DAILY #30 tabs 04/21/23 04/21/23 Rx atorvastatin 20 mg tablet 20 mg PO QAM #90 tabs 06/09/23 Rx furosemide 80 mg tablet 80 mg PO QAM #90 tabs 06/09/23 Rx lancets (Accu-Chek Softclix #300 ea 06/09/23 Rx Lancets) lisinopril 10 mg tablet 10 mg PO QAM #90 tabs 06/09/23 Rx metformin 1,000 mg tablet 1,000 mg PO BID #180 tabs 06/09/23 Rx insulin syringe-needle U-100 1 mL #300 ea 08/21/23 Rx 31 gauge x 5/16" (BD Insulin Syringe Ultra-Fine) gabapentin 300 mg capsule 300 mg PO DAILY #30 caps 09/13/23 Rx insulin human U-100 NPH-regulr 20 - 50 unit (0.2 - 0.5 mL) subcut 10/31/23 Rx 70-30 mix 100 unit/mL subcutaneous TID #30 mL susp (Novolin 70/30 U-100 Insulin) Past Med/Surg History Problem List (Updated 12/31/23 @ 11:04 by Francisco Dawson MD) Fracture of cervical vertebra, C6 C5 cervical fracture C2 cervical fracture Status post fall Acute respiratory failure with hypoxia Multiple closed fractures of cervical vertebrae Alcohol intoxication DM (diabetes mellitus), type 2, uncontrolled w/neurologic complication (Acute) Factor V Leiden mutation (Acute) on warfarin daily Fatty liver (Chronic) ? 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) Morbid obesity (Chronic) CHRISTIANO (obstructive sleep apnea) (Acute) cpap Vitamin D deficiency (Chronic) Chronic anticoagulation Diabetic neuropathy (Chronic) Edema (Acute) Ambulatory dysfunction Complete heart block Status post placement of cardiac pacemaker Anemia History of DVT (deep vein thrombosis) Diastolic congestive heart failure Uncontrolled type 2 diabetes mellitus Loss of protective sensation of skin of foot Non-proliferative diabetic retinopathy, both eyes Vitreous hemorrhage Medical History Hives Supratherapeutic INR On anticoagulant therapy Bradycardia Vitamin D deficiency CHRISTIANO (obstructive sleep apnea) Hypertension Hyperglobulinemia Hypercholesterolemia Generalized OA Gastroesophageal reflux disease Fatty liver Factor V Leiden mutation DVT, lower extremity DM (diabetes mellitus), type 2, uncontrolled w/neurologic complication Surgical History Status post appendectomy History of colonoscopy History of wisdom tooth extraction History of tooth extraction S/P tonsillectomy Family History Father Coronary heart disease Myocardial infarction Mother COPD (chronic obstructive pulmonary disease) Stroke Family history of diabetes mellitus Diabetes Brother Prostate cancer Coronary heart disease Grandfather (Paternal) Family history of diabetes mellitus Grandmother (Paternal) Family history of diabetes mellitus Other No family history of adverse response to anesthesia Denies family history of Ovarian cancer Breast cancer Colorectal cancer Social History Smoking Status: Never smoker Tobacco Type: Smokeless Tobacco (Dip or Chew) Second Hand Exposure: Yes (parents smoked); Do You Dip or Chew Tobacco: Yes; Hx Alcohol Use: No Hx Substance Use: No Preferred Language: [place] Communication Ability: Effective Visual Impairment: Limited Hearing Ability: Normal Gmat Tutor Required: No Beliefs That Will Affect Care: None marital status: Life Partner Current Living Situation: Alone Current Living Situation Comment: Lives with sister current occupational status: retired and disabled current occupation: [employer] Feels Safe at Home: Yes Safety Concerns: Feels Safe At This Time Childhood Exposure to Second-Hand Smoke: No Diet: diabetic caffeine: Yes Dental Care, Regularly: No Physical Activity Frequency: Does not Exercise Seatbelt Use: always Assistive Devices: None Review of Systems All systems reviewed & are unremarkable except as noted in HPI & below. Physical Exam General: The patient is alert today. Upon my arrival, his hard c-collar was around his nose. I did readjust his c-collar today to fit him properly. The nurse was also present for this. He did not seem to have any pain with range of motion. Minimal tenderness to the posterior aspect of the cervical spine. In regards to motor testing of the right upper extremity, he has 5 out of 5 strength in all planes. In regards to his lower extremities, he also has 5 out of 5 strength. He is not having any bowel or bladder incontinence as he was using a urinal on my arrival today. Sensation intact, distal pulses palpated. Cap refill less than 3 seconds in the bilateral upper and lower extremities. Constitutional WD/WN, vitals as above Results & Data Results & Data Laboratory Results Abnormal Labs 12/30/23 12/31/23 12/31/23 22:19 01:42 05:43 [place] # (Auto) 0.61 H 0.64 H APTT 32 H 32 H Sodium 134 L BUN/Creatinine Ratio 9.7 L Glucose 207 H 206 H POC Glucose 182 H Hemoglobin A1c 12.5 H Albumin 3.3 L 3.0 L Ethyl Alcohol mg/dL 265.3 H 12/31/23 06:01 [place] # (Auto) APTT Sodium BUN/Creatinine Ratio Glucose POC Glucose 202 H Hemoglobin A1c Albumin Ethyl Alcohol mg/dL Diagnostic Findings I did independently review the CT of the cervical spine 12/30/2023. Agree with the below impression. IMPRESSION: 1. There are mildly displaced avulsion fractures involving the right inferior second transverse process and the right posterior fifth, the right sixth and seventh transverse processes, best appreciated on coronal reformatted imaging. 2. No vertebral body fracture. No fracture involving the pedicles or remaining posterior elements. CTA of the neck on 12/30/2023: IMPRESSION: 1. No obvious imaging evidence of vascular injury. 2. Atherocalcific plaques in left carotid bifurcation, bilateral cavernous ICAs and right petrous ICA without significant stenosis. 3. Retropharyngeal course of bilateral internal carotid arteries - anatomical variant PG Care Time/CCT Total # of Minutes Spent Total Time Spent with Patient: Total time spent is greater than 50% in coordination of care (as documented) at patient's floor/unit and/or counseling patient: Coding Level of Care Code 05141 IN/OBS CONSULT LVL 4,60M Diagnoses Closed nondisplaced fracture of second cervical vertebra, unspecified fracture morphology, initial encounter S12.101A Encounter type: initial encounter Fracture type: closed Fracture morphology: unspecified fracture morphology Fracture alignment: nondisplaced Other closed nondisplaced fracture of fifth cervical vertebra, initial encounter S12.491A Encounter type: initial encounter Fracture type: closed Fracture morphology: other fracture Fracture alignment: nondisplaced Other closed nondisplaced fracture of sixth cervical vertebra, initial encounter S12.591A Encounter type: initial encounter Fracture type: closed Fracture morphology: other fracture Fracture alignment: nondisplaced (1) C2 cervical fracture Encounter type: initial encounter Fracture type: closed Fracture morphology: unspecified fracture morphology Fracture alignment: nondisplaced Qualified Code(s): S12.101A - Unspecified nondisplaced fracture of second cervical vertebra, initial encounter for closed fracture (2) C5 cervical fracture Encounter type: initial encounter Fracture type: closed Fracture morphology: other fracture Fracture alignment: nondisplaced Qualified Code(s): S12.491A - Other nondisplaced fracture of fifth cervical vertebra, initial encounter for closed fracture (3) Fracture of cervical vertebra, C6 Encounter type: initial encounter Fracture type: closed Fracture morphology: other fracture Fracture alignment: nondisplaced Qualified Code(s): S12.591A - Other nondisplaced fracture of sixth cervical vertebra, initial encounter for closed fracture
[2023-12-31] MEDS: PANTOprazole 40 MG/10 ML SYR IV SCH (10:55)
[2023-12-31] MEDS ORDERED: Nursing to Pharmacy Communication SCH (12:15)
[2023-12-31] MEDS: INSULIN ASPART PER UNIT CHARGE SC ONE (12:36)
--- NOTE | 2023-12-31 17:16 | Electrocardiogram Report ---
Test Reason : Blood Pressure : */* mmHG Vent. Rate : 63 BPM Atrial Rate : 250 BPM P-R Int : * ms QRS Dur : 182 ms QT Int : 510 ms P-R-T Axes : * -81 83 degrees QTcB Int : 521 ms Ventricular-paced rhythm with premature ventricular or aberrantly conducted complexes Abnormal ECG When compared with ECG of 31-Dec-2023 00:04, (unconfirmed) Vent. rate has increased by 3 bpm Confirmed by Joe Delgado ([id number] on 12/31/2023 5:16:06 PM Referred By: NO PCP Confirmed By: Joe Delgado
[2023-12-31] MEDS: COUGH DROP (SUGAR FREE) LOZ 24 LOZ/1 BOX BUCCAL ONE (17:37)
[2024-01-01 06:05] LABS: Basophils # (auto) 0.05 K/uL (0.00-0.20); Basophils % (auto) 0.7 %; Eosinophils # (auto) 0.18 K/uL (0.00-0.50); Eosinophils % (auto) 2.5 %; Hematocrit (blood only) 42.1 % (42.0-52.0); Hemoglobin 14.1 g/dl (14.0-18.0); Immature Granulocytes # (auto) 0.04 K/uL (0.01-0.20); Immature Granulocytes % (auto) 0.5 %; Lymphocytes # (auto) 1.72 K/uL (1.20-3.40); Lymphocytes % (auto) 23.5 %; Mean Corpuscular Hemoglobin 29.4 pg (25.0-34.0); Mean Corpuscular Hgb Conc 33.5 g/dL (32.0-36.0); Mean Corpuscular Volume 87.9 fL (80.0-100.0); Mean Platelet Volume 11.2 fL (9.4-12.4); Monocytes # (auto) 1.02 K/uL (0.11-0.59); Neutrophils % (auto) 58.8 %; Platelet Count 306 K/uL (130-400); RDW Coefficient of Variation 13.2 % (11.5-14.5); RDW Standard Deviation 42.5 fL (36.4-46.3); Red Blood Count 4.79 M/uL (4.70-6.10); White Blood Count 7.31 K/ul (4.8-10.8)
[2024-01-01 06:28] LABS: Albumin Globulin Ratio 0.9 (0.9-2); Albumin Level 2.9 gm/dl (3.4-5.0); BUN Creatinine Ratio 13.8 (10-20); Bilirubin,Total 0.6 mg/dl (0.2-1.0); Calcium 8.4 mg/dl (8.6-10.3); Creatinine Clr Calc Pharmacy 120.3 ml/min; Globulin 3.3 gm/dl (2.5-4.0); Potassium 4.1 mmol/L (3.5-5.1); Total Protein 6.2 gm/dl (6.0-8.3)
[2024-01-01 06:36] LABS: Partial Thromboplastin Ratio 1.2; Partial Thromboplastin Time 32 Seconds (21-31); Prothrombin Time 11.2 Seconds (9.0-12.0)
--- NOTE | 2024-01-01 07:27 | Hospitalist Progress Note ---
Date of Service January 01, 2024 Assessment & Plan (1) Multiple closed fractures of cervical vertebrae: Plan: s/p unwitnessed fall at home due to alcohol intoxication CT neck showing TP fractures of C2, C5, C6, C7 No sign of vascular injury, no significant cervical or head pain Moving b/l UE and LE, no numbness or tingling beyond baseline peripheral neuropathy to b/l LE - ortho recommendation to continue wearing MiamiJ collar until followup with ortho in 2wks - PT as an outpatient once collar is off to rebuild strength in neck - Acetaminophen 1 g IV every 8 hours as needed for pain - home [place] ordered: 10mg TID as needed for pain - no surgery recommended at this time per orthopedics consult (2) Alcohol intoxication: Plan: Alcohol level 265.3 on admission - denies daily alcohol use, prior to this episode has not had a drink in over a year - continue to hold on AWSS protocol for now, however monitor pt for signs of alcohol withdrawal while hospitalized (3) DM (diabetes mellitus), type 2, uncontrolled w/neurologic complication: Plan: A1c in ED was 12.5% indicating uncontrolled DM. Pt reports he checks BSG at home with average reading in 160-180s. As outpatient, on Ozempic as well as metformin 1000mg BID. Further investigation for optimized basal dosage during this hospital stay. -Continue glargine 12 units BID with NovoLog SSI - Holding metformin - continuing home gabapentin for neuropathy - CMP in AM labs (4) Acute respiratory failure with hypoxia: Plan: Now on room air down from 4L NC DuoNebs q2 hours as needed for SOB No current c/o chest tightness, difficulty breathing, cough or congestion - discontinue levofloxacin (5) History of DVT (deep vein thrombosis): Plan: According to last visit note from PCP on 11/24/23, anticoagulation was not listed as current medication - has not been on Xarelto in 2+ years - SCDs while in bed (6) CHRISTIANO (obstructive sleep apnea): Plan: chronic, CPAP nightly as needed (7) Mixed restrictive and obstructive lung disease: Plan: continue DuoNebs q2h as needed for SOB (8) Status post placement of cardiac pacemaker: Plan: pacemaker in place, 60bmp on average, asymptomatic - continue on telemetry (9) Complete heart block: Plan: pacemaker in place, 60bmp on average, asymptomatic - continue on telemetry (10) Status post fall: Plan: see assessment/plan #1 Plan Chronic conditions- HTN- continuing lisinopril 20mg HLD- continuing rosuvastatin 20mg Edema- continuing Furosemide 20mg Pacemaker/heart block- continuing Metoprolol 50mg BID Dispo: Diet: NPO changed to DM2 VTE prophylaxis- SCDs due to recent fall Code: Full Admission and Anticipated Discharge Date Admission Date: ATTESTATION I also saw the patient and confirmed corona portions of the history and exam. I agree with the impression and plan in the resident documentation, and as summarized below. Patient had an unwitnessed fall at home in the setting of acute intoxication. he does not drink regularly, in fact the alcohol he consumed was the first day nearly a decade. He did have a break-up with a girlfriend; he tells me he is "okay" with things now. EXAM 119/66, 59, 20, 37 C, 96% room air Cervical collar in place Cardiovascular regular rate and rhythm respirations nonlabored; lungs are clear Chronic lower extremity venous stasis changes IMPRESSION & PLAN Multiple closed fractures of cervical vertebrae Alcohol intoxication Resume home medications Ortho consult appreciated PT/OT to see today, which will help with disposition Additional per resident documentation Subjective Patient was seen and evaluated at bedside this AM, was sitting comfortably on the edge of his bed with Miami[place] collar in place. Denied any issues overnight, has been able to ambulate around room. Having regular bowel movements and urination without issue. Endorses he is eating well and has a good appetite. Continues to deny significant neck or head pain, feeling well this AM. Notes some LLE pain as he has a history of peripheral neuropathy and recurrent cellulitis, requesting home [place] 10mg TID while in hospital. Denies any fever, body aches, chills, headache, facial pain, neck pain, SOB, chest pain, abdominal pain, extremity weakness. Review of Systems Review of Systems: per HPI Physical Exam Physical Exam: Constitutional: A&Ox3, appears stated age, not in acute distress HEENT: anicteric sclerae, EOM intact, PERRL; dental erosion observed Cardiovascular: RRR to bradycardic regular rhythm, +s1/s2, no m/r/g Respiratory: clear to auscultation b/l, good equal air entry b/l, no wheeze/rales/rhonchi GI: abdomen soft, +BS, nontender to palpation Neuro: no facial droop, speech intact, sensory deficits from mid-horne downward, no tremor noted in b/l UE when asked to stick them straight out MSK: 5/5 strength in b/l UE and LE, mild erythema to b/l LE L>R Results & Data Results & Data Vital Signs (Past 12 Hours) Vital Signs Temp Pulse Resp BP Pulse Ox O2 Del Method 01/01/24 03:28 36.8 C 70 20 111/65 95 Room Air 01/01/24 00:00 Room Air 12/31/23 23:35 36.6 C 53 L 18 151/70 H 92 Room Air 12/31/23 20:00 Room Air Laboratory Results Abnormal lab results 12/31/23 01/01/24 01/01/24 Range/Units 20:31 05:27 07:57 [place] # (Auto) 1.02 H (0.11-0.59) K/uL APTT 32 H (21-31) Seconds Glucose 192 H (70-99(Fasting)) mg/dl POC Glucose 223 H 214 H (70-99) mg/dl Calcium 8.4 L (8.6-10.3) mg/dl Albumin 2.9 L (3.4-5.0) gm/dl 01/01/24 01/01/24 01/01/24 Range/Units 11:49 16:47 17:05 [place] # (Auto) (0.11-0.59) K/uL APTT (21-31) Seconds Glucose (70-99(Fasting)) mg/dl POC Glucose 235 H 223 H 230 H (70-99) mg/dl Calcium (8.6-10.3) mg/dl Albumin (3.4-5.0) gm/dl Resident Activity Tracking Resident Involvement: Resident Care Provided Care Provided: Adult Hospital Medicine (1) Multiple closed fractures of cervical vertebrae Encounter type: initial encounter Qualified Code(s): S12.9XXA - Fracture of neck, unspecified, initial encounter (2) Alcohol intoxication Complication of substance-induced condition: uncomplicated Qualified Code(s): F10.920 - Alcohol use, unspecified with intoxication, uncomplicated
[2024-01-01] MEDS: HYDROcodone/ACETAMINOPHEN 10/325 TAB PO PRN (13:20)
[2024-01-01] MEDS: METOPROLOL TARTRATE 50 MG TAB PO SCH (21:23)
[2024-01-02 06:10] LABS: Basophils # (auto) 0.06 K/uL (0.00-0.20); Basophils % (auto) 0.9 %; Eosinophils # (auto) 0.23 K/uL (0.00-0.50); Eosinophils % (auto) 3.3 %; Hematocrit (blood only) 40.3 % (42.0-52.0); Hemoglobin 13.7 g/dl (14.0-18.0); Immature Granulocytes # (auto) 0.04 K/uL (0.01-0.20); Immature Granulocytes % (auto) 0.6 %; Lymphocytes # (auto) 1.68 K/uL (1.20-3.40); Mean Corpuscular Hemoglobin 29.7 pg (25.0-34.0); Mean Corpuscular Volume 87.4 fL (80.0-100.0); Mean Platelet Volume 11.6 fL (9.4-12.4); Monocytes # (auto) 0.91 K/uL (0.11-0.59); Neutrophils # (auto) 4.09 K/uL (1.40-6.50); Neutrophils % (auto) 58.2 %; Platelet Count 272 K/uL (130-400); RDW Coefficient of Variation 13.1 % (11.5-14.5); RDW Standard Deviation 41.5 fL (36.4-46.3); Red Blood Count 4.61 M/uL (4.70-6.10); White Blood Count 7.01 K/ul (4.8-10.8)
[2024-01-02 06:28] LABS: Albumin Globulin Ratio 0.9 (0.9-2); BUN Creatinine Ratio 19.7 (10-20); Bilirubin,Total 0.7 mg/dl (0.2-1.0); Calcium 8.5 mg/dl (8.6-10.3); Creatinine Clr Calc Pharmacy 146.1 ml/min; Globulin 3.2 gm/dl (2.5-4.0); Potassium 4.3 mmol/L (3.5-5.1); Total Protein 6.2 gm/dl (6.0-8.3)
[2024-01-02 06:39] LABS: Partial Thromboplastin Ratio 1.2; Partial Thromboplastin Time 31 Seconds (21-31); Prothrombin Time 11.2 Seconds (9.0-12.0)
--- NOTE | 2024-01-02 07:03 | Hospitalist Progress Note ---
Date of Service January 02, 2024 Assessment & Plan (1) Multiple closed fractures of cervical vertebrae: Plan: s/p unwitnessed fall at home due to alcohol intoxication CT neck showing TP fractures of C2, C5, C6, C7 No sign of vascular injury, no significant cervical or head pain Moving b/l UE and LE, no numbness or tingling beyond baseline peripheral neuropathy to b/l LE - ortho recommendation to continue wearing MiamiJ collar until followup with ortho in 2wks - PT as an outpatient once collar is off to rebuild strength in neck - Acetaminophen 1 g IV every 8 hours as needed for pain - home [place] ordered: 10mg TID as needed for pain - no surgery recommended at this time per orthopedics consult (2) Alcohol intoxication: Plan: Alcohol level 265.3 on admission - denies daily alcohol use, prior to this episode has not had a drink in over a year - continue to hold on AWSS protocol for now, however monitor pt for signs of alcohol withdrawal while hospitalized (3) DM (diabetes mellitus), type 2, uncontrolled w/neurologic complication: Plan: A1c in ED was 12.5% indicating uncontrolled DM. Pt reports he checks BSG at home with average reading in 160-180s. As outpatient, on Ozempic as well as metformin 1000mg BID. Further investigation for optimized basal dosage during this hospital stay. -Continue glargine 12 units BID with NovoLog SSI - Holding metformin - continuing home gabapentin for neuropathy - CMP in AM labs (4) Acute respiratory failure with hypoxia: Plan: Now on room air down from 4L NC DuoNebs q2 hours as needed for SOB No current c/o chest tightness, difficulty breathing, cough or congestion - discontinue levofloxacin (5) History of DVT (deep vein thrombosis): Plan: According to last visit note from PCP on 11/24/23, anticoagulation was not listed as current medication - has not been on Xarelto in 2+ years - SCDs while in bed (6) CHRISTIANO (obstructive sleep apnea): Plan: chronic, CPAP nightly as needed (7) Mixed restrictive and obstructive lung disease: Plan: continue DuoNebs q2h as needed for SOB (8) Status post placement of cardiac pacemaker: Plan: pacemaker in place, 60bmp on average, asymptomatic - continue on telemetry (9) Complete heart block: Plan: pacemaker in place, 60bmp on average, asymptomatic - continue on telemetry (10) Status post fall: Plan: see assessment/plan #1 Plan Chronic conditions- HTN- continuing lisinopril 20mg HLD- continuing rosuvastatin 20mg Edema- continuing Furosemide 20mg Pacemaker/heart block- continuing Metoprolol 50mg BID Dispo: Diet: NPO changed to DM2 VTE prophylaxis- SCDs due to recent fall Code: Full Admission and Anticipated Discharge Date Admission Date: December 30, 2023 Subjective Patient was seen and evaluated at bedside this AM, was sitting on the edge of his bed with Miami[place] collar in place, appearing sleepy. Endorses 5/10 neck pain overnight, otherwise no issues. Has been able to ambulate around room with walker. Having regular bowel movements and urination without issue. Endorses he is eating well and has a good appetite. This AM endorses 4/10 neck pain, otherwise denies significant pain or discomfort, feeling generally well. LLE pain managed well with home [place] while in hospital. Denies any fever, body aches, chills, headache, facial pain, neck pain, SOB, chest pain, abdominal pain, extremity weakness. Review of Systems Review of Systems: per HPI Physical Exam Physical Exam: Constitutional: A&Ox3, appears stated age, not in acute distress HEENT: anicteric sclerae, EOM intact, PERRL; dental erosion observed Cardiovascular: RRR to bradycardic regular rhythm, +s1/s2, no m/r/g Respiratory: clear to auscultation b/l, good equal air entry b/l, no wheeze/rales/rhonchi GI: abdomen soft, +BS, nontender to palpation Neuro: no facial droop, speech intact, sensory deficits from mid-horne downward, no tremor noted in b/l UE when asked to stick them straight out MSK: 5/5 strength in b/l UE and LE, mild erythema to b/l LE L>R Results & Data Results & Data Vital Signs (Past 12 Hours) Vital Signs Temp Pulse Resp BP Pulse Ox O2 Del Method 01/02/24 03:05 36.6 C 72 20 143/76 H 98 Room Air 01/01/24 23:19 36.9 C 59 L 18 151/72 H 94 Room Air 01/01/24 21:15 66 01/01/24 19:32 36.7 C 56 L 16 127/72 95 Room Air (1) Multiple closed fractures of cervical vertebrae Encounter type: initial encounter Qualified Code(s): S12.9XXA - Fracture of neck, unspecified, initial encounter (2) Alcohol intoxication Complication of substance-induced condition: uncomplicated Qualified Code(s): F10.920 - Alcohol use, unspecified with intoxication, uncomplicated
[2024-01-02 07:40] VITALS: O2SAT 94
[2024-01-02] MEDS: GABAPENTIN 300 MG CAP PO SCH (08:43)
[2024-01-02] MEDS: ATORVASTATIN 20 MG TAB PO SCH (08:43)
[2024-01-02] MEDS: lisinopril 10 MG TAB PO SCH (08:43)
[2024-01-02] MEDS: FUROSEMIDE 20 MG TAB PO SCH (08:43)
[2024-01-02] MEDS ORDERED: FUROSEMIDE 80 MG TAB PO SCH (09:00)
[2024-01-02] MEDS ORDERED: RIVAROXABAN 20 MG TAB PO SCH (09:00)
[2024-01-02 10:57] VITALS: RESP 18; TEMP 97.7
[2024-01-02 13:41] VITALS: BP 119/66
[2024-01-02 14:56] VITALS: PULSE 87
--- NOTE | 2024-01-02 15:08 | Discharge Summary ---
Date of Service January 02, 2024 Admission HPI Per Admitting Provider The patient is a 68-year-old male with a past medical history including diabetes mellitus uncontrolled, factor V Leiden mutation, GERD, hypercholesterolemia, hypertension, mixed restrictive and obstructive lung disease, CHRISTIANO, complete heart block status post cardiac pacemaker, history of DVT, and peripheral neuropathy. The patient was brought to the emergency department after emergency services were called to do a wellness check after there was a loud thud in his apartment. He evidently fell, associated with being sleepy severely intoxicated, and was brought to the emergency department for assessment. In the emergency department, patient was able to move all 4 extremities, and was noted to be somnolent. During my examination, the patient was sleeping very soundly, was difficult to arouse, but was able to open eyes to name being called. Alcohol level was noted to be 265.3, glucose upon laboratory findings was 207. The patient had a temperature of 35.1, and was placed on a Giovanna hugger, with improvement to 37 Admission Exam Per Admitting Provider The patient is somnolent, but arousable. normocephalic and atraumatic, lying in bed, wrapped in Giovanna hugger HEENT--PERRL, EOMI, mucous membranes and oropharynx dry. Neck--supple. No JVD. No bruits. Thyroid normal, trachea midline, no adenopathy. Heart--normal S1 and S2. No murmurs, rubs or gallops. Lungs--coarse breath sounds bilaterally. No respiratory distress, no accessory muscle use. Abdomen--normal bowel sounds and soft. Nontender. Nondistended. Morbidly obese Extremities--No edema. Dermatologic--skin initially was cool, but improving with bear hugger Neurologic--cranial nerves II through XII grossly intact. Rheumatologic--limited exam Psychiatric--somnolent Principal Diagnosis multiple cervical fractures (Right transverse processes) Discharge Exam Constitutional: A&Ox3, appears stated age, not in acute distress HEENT: [facility] cervical collar in place; anicteric sclerae, EOM intact, PERRL; dental erosion observed Cardiovascular: RRR to bradycardic regular rhythm, +s1/s2, no m/r/g Respiratory: clear to auscultation b/l, good equal air entry b/l, no wheeze/rales/rhonchi GI: abdomen soft, +BS, nontender to palpation Neuro: no facial droop, speech intact, sensory deficits from mid-horne downward, no tremor noted in b/l UE when asked to stick them straight out MSK: 5/5 strength in b/l UE and LE, mild erythema to b/l LE L>R Discharge Data Allergies Allergy/AdvReac Type Severity Reaction Status Date / Time ceftriaxone Allergy Severe Hives Verified 05/19/23 15:24 Sulfa (Sulfonamide Allergy Intermediate HIVES-ITCHY Verified 05/19/23 15:24 Antibiotics) RASH Consultations 12/30/23 23:29 ED Decision to Admit Stat 12/31/23 03:30 Consult Orthopedic Spine Surgery Routine Ordered Studies 12/30/23 21:47 CT cervical spine wo con Stat CT head/brain wo con Stat 12/30/23 23:13 CT angio neck with con Stat 12/30/23 23:36 CT chest diagnostic w con Stat Hospital Course (1) Multiple closed fractures of cervical vertebrae: s/p unwitnessed fall at home due to alcohol intoxication CT neck from 12/30/23 showing Right TP fractures of C2, C5, C6, C7 No sign of vascular injury, no significant cervical or head pain Moving b/l UE and LE, no numbness or tingling beyond baseline peripheral neuropathy to b/l LE - ortho recommendation to continue wearing MiamiJ collar until followup with ortho in 2wks - PT as an outpatient once collar is off to rebuild strength in neck - Acetaminophen 1 g IV every 8 hours as needed for pain - home [place] ordered: 10mg TID as needed for pain - no surgery recommended at this time per orthopedics consult (2) Alcohol intoxication: Alcohol level 265.3 on admission - denies daily alcohol use, prior to this episode has not had a drink in over a year - continue to hold on AWSS protocol for now, however monitor pt for signs of alcohol withdrawal while hospitalized (3) DM (diabetes mellitus), type 2, uncontrolled w/neurologic complication: A1c in ED was 12.5% indicating uncontrolled DM. Pt reports he checks BSG at home with average reading in 160-180s. As outpatient, on Ozempic as well as metformin 1000mg BID. Further investigation for optimized basal dosage during this hospital stay. -Continue glargine 12 units BID with NovoLog SSI - Holding metformin - continuing home gabapentin for neuropathy, home [place] 10mg TID as needed for pain - discharge on home Novolin regimen and to follow up with PCP Dr. Rajan for outpatient management (4) Acute respiratory failure with hypoxia: Now on room air down from 4L NC DuoNebs q2 hours as needed for SOB No current c/o chest tightness, difficulty breathing, cough or congestion (5) History of DVT (deep vein thrombosis): According to last visit note from PCP on 11/24/23, anticoagulation was not listed as current medication - has not been on Xarelto in 2+ years - SCDs while in bed (6) CHRISTIANO (obstructive sleep apnea): chronic, CPAP nightly as needed (7) Mixed restrictive and obstructive lung disease: continue DuoNebs q2h as needed for SOB (8) Status post placement of cardiac pacemaker: pacemaker in place, 60bmp on average, asymptomatic - continue on telemetry (9) Complete heart block: pacemaker in place, 60bmp on average, asymptomatic - continue on telemetry (10) Status post fall: see assessment/plan #1 Plan Chronic conditions- HTN- continuing lisinopril 20mg HLD- continuing rosuvastatin 20mg Edema- continuing Furosemide 20mg Pacemaker/heart block- continuing Metoprolol 50mg BID Dispo: Diet: NPO changed to DM2 VTE prophylaxis- SCDs due to recent fall Code: Full Total Time Total Time Spent Total Time Spent (In Minutes): I spent 25 minutes today. Discharge Plan Discharge Items Patient Disposition: Home - Home Health Services Reason For Visit: CERVICAL VERTEBRAE FX'S, ETOH INTOXICATION Discharge Diagnosis: cervical vertebrae fractures due to fall from alcohol intoxication Activity: Per Instructions section Non-emergency contact: Primary Care Provider Call non-emergency contact if: your symptoms worsen and your pain is not controlled Follow-up/Referrals: Joe Nevarez MD [Primary Care Provider] - Xiao Mckeon DO [Outside Practitioners] - 01/15/24 2:25 pm (Please have patient scheduled for hospital discharge follow up appointment within [address] Satinder Horan is his PCP. Hospital follow up scheduled for January 14 at 2:[address] Rajan) Diet: Carb Consistent or DM2 Addtl Attending Provider Instructions: You were evaluated and treated at [facility] after a fall during alcohol intoxication which resulted in fractures (bone breaks) of four of your cervical vertebrae (neck bones) - C2, C5, C6, and C7 at their Right transverse processes. You did not suffer from any apparent neurological deficits, but as the bones still need to heal, which is why you have been provided a [place] J collar. Orthopedic surgery is not recommended as your condition appears stable. Physical therapy is recommending home health services, as opposed to their initial recommendation on 01/01/24 of going to a rehab facility, but as you are not agreeable to home health services, you have agreed to discuss with with your PCP, Dr. Rajan, and decide at that time whether you will have home health services. You have been instructed to follow up with orthopedics as an outpatient in 2 weeks after discharge. At that time you will be evaluated for ability to remove the collar. Upon collar removal, it is advised that you attend physical therapy to regain the strength in your neck as well as to work on improving any residual deficits in balance and walking around. Please follow up closely with your PCP Dr. Rajan within the week for continued outpatient management of your chronic conditions: as your A1c is 12.5% and blood glucose is typically in the low 200s, please discuss your current insulin regimen with PCP to ensure good control of blood sugar. Pending Studies at Discharge: No Stand-Alone Forms: My [facility], Smoking Cessation Medications and DC Order Prescriptions: Continued ketoconazole 2 % cream 1 applic topical DAILY 21 Days Qty: 60 0RF Rx Instructions: Apply to groin folds daily for 3 weeks for intertrigo metoprolol tartrate 50 mg tablet 50 mg PO BID Qty: 60 0RF ergocalciferol (vitamin D2) 1,250 mcg (50,000 unit) capsule 50,000 unit PO Q7D@0900 Qty: 14 0RF (DME) lancets [OneTouch Delica Lancets] 30 gauge misc See Dose Instructions .ROUTE .MEDSUPPLY Qty: 25 0RF Dose Instruction: As directed Rx Instructions: As directed (DME) blood-glucose meter [Accu-Chek Guide Me Glucose Mtr] Misc See Rx Instructions .Route Qty: 1 0RF Rx Instructions: As directed (DME) OneTouch Ultra Test Strip See Rx Instructions .Route Qty: 300 3RF Rx Instructions: TEST 3 TIMES DAILY; DX CODE E11.65 furosemide 80 mg tablet 80 mg PO QAM Qty: 90 3RF atorvastatin 20 mg tablet 20 mg PO QAM Qty: 90 3RF lisinopril 10 mg tablet 10 mg PO QAM Qty: 90 3RF metformin 1,000 mg tablet 1,000 mg PO BID Qty: 180 3RF (DME) lancets [Accu-Chek Softclix Lancets] Misc See Rx Instructions .Route Qty: 300 3RF Rx Instructions: test blood sugars three times daily (DME) insulin syringe-needle U-100 [BD Insulin Syringe Ultra-Fine] 1 mL 31 gauge x 5/16 syringe See Rx Instructions .ROUTE .MEDSUPPLY Qty: 300 3RF Rx Instructions: USE 3 TIMES DAILY; DX CODE- E11.49, E11.65 gabapentin 300 mg capsule 300 mg PO DAILY Qty: 30 2RF Novolin 70/30 U-100 Insulin 100 unit/mL (70-30) suspension 20 - 50 unit subcut TID Qty: 30 2RF Rx Instructions: as directed before meals Xarelto 20 mg tablet 20 mg PO DAILY Qty: 90 3RF sildenafil 100 mg tablet 100 mg PO DAILY Qty: 30 2RF acetaminophen 325 mg Tablet 650 mg PO Q6H PRN (Reason: pain) Qty: 30 0RF cephalexin 500 mg capsule 500 mg PO TID Qty: 30 3RF Discharge Orders: Discharge Order (Routine); Ordered 01/02/24 Ordered By: Reji Jones/Other Patient Handouts: Diabetes and Drinking Alcohol, Diabetes: Caring for Your Body, Anatomy of a Normal Spine, Diabetes Support, Diabetes and Illness, ED Alcohol Intoxication Admission Data Admit Date/Time: 12/30/23 23:55 Attending Provider: Jarocho Claire Admit Provider: Jonathon Quiñonez Primary Care Provider: Joe Nevarez Other Providers: Jonathon Quiñonez; Carlos Mckeon; Iron Cormier; Geoff Otero; Alta Cheatham; Jim Dietrich; Francisco Dawson Other Interventions: Discharge Summary Assessment (RN) Last Done: 01/02/24 13:39 Supervising Physician Co-Signing Physician Notes ATTESTATION I also saw the patient and confirmed corona portions of the history and exam. I agree with the impression and plan in the resident documentation, and as summarized below. No new complaints today. Neck sore but tolerable. EXAM 130/75, 87, [address] Cardiovascular regular rate and rhythm respirations nonlabored; lungs are clear Chronic lower extremity venous stasis changes IMPRESSION & PLAN Multiple closed fractures of cervical vertebrae DM Recommend home PT; he will consider Discussed fall prevention Discussed PCP follow Needs ortho follow up as well as outpatient and he is aware Additional per resident documentation Resident Activity Tracking Resident Involvement: Resident Care Provided Care Provided: Adult Hospital Medicine
--- NOTE | 2024-01-02 18:30 | Electrocardiogram Report ---
Test Reason : Blood Pressure : */* mmHG Vent. Rate : 60 BPM Atrial Rate : 74 BPM P-R Int : * ms QRS Dur : 200 ms QT Int : 550 ms P-R-T Axes : * 269 86 degrees QTcB Int : 550 ms Ventricular-paced rhythm Abnormal ECG When compared with ECG of 17-Feb-2021 10:17, Vent. rate has decreased by 10 bpm Confirmed by Joe Delgado ([id number]) on 01/02/2024 6:30:19 PM Referred By: NO PCP Confirmed By: Joe Delgado
== END 2024-01-02 17:50 | disposition home or self-care (01) | DRG 551 ==
LOC: ED 21:33 → 4W 23:55 → SUATTDRO 23:55 → INTOOBSV 23:55 → 4W 12-31 00:49

== ENCOUNTER 2024-01-16 13:47 | Inpatient (IN) ==
--- NOTE | 2024-01-16 14:42 | Emergency Department Note ---
Impression & Plan Syncope, Hyperglycemia, Acute head trauma, Muscle spasm, Acute dehydration ED Provider Note NAME: ALEXIS LAMA AGE: 68 SEX: M : 1955 ARRIVES VIA: Ambulance INFORMANT: [Patient] ED PROVIDER(S): [Francisco Aceves MD] CHIEF COMPLAINT: Facial and arm spasms HISTORY OF PRESENT ILLNESS: The patient is a 68-year-old male who states that 3 days ago, his sugar went quite low in the 30s. He had a syncopal spell from this and did strike his head. He states that he was able to get things turned around but was not seen for the hypoglycemia. He is not on blood thinning agents. The patient states that now, for the last 2 days, he has episodes where his face spasms and his left arm spasms. The episodes last for around a minute or so at a time. He states that he is awake and aware of everything around him when the episodes occur. They occur randomly. There has been no cough or congestion, no respiratory complaints. He has not had fever. He cannot recall ever having this problem before. PMHx/PSHx/Social Hx: See Below PHYSICAL EXAM: GENERAL: Patient is in no acute distress. Smells strongly of urine. HEENT: No acute trauma, normocephalic atraumatic, mucous membranes moist, no nasal congestion. NECK: No stridor, no adenopathy, no meningismus, trachea is midline. LUNGS: Clear to auscultation bilaterally, no wheeze, no rhonchi, breath sounds equal. Breath sounds diminished bilaterally. HEART: Very subtle systolic murmur, regular rate and rhythm. ABDOMEN: Soft, nontender, no peritonitis. EXTREMITIES: No cyanosis, full range of motion of all the joints without pain or difficulty. NEUROLOGIC: Oriented x 3, no acute motor or sensory deficits, no focal weakness. SKIN: No jaundice, no diaphoresis. DIFFERENTIAL DIAGNOSIS: UTI, electrolyte imbalance, dehydration, intracranial bleed, among others. EMERGENCY DEPARTMENT PROCEDURES: MEDICAL DECISION MAKING: There is no leukocytosis or concerning anemia. There is a normal platelet count. Renal panel testing shows a high glucose at over 450. No renal failure. No electrolyte abnormality in need of emergent correction. Patient appeared to be in a euthyroid state. ECG showed a ventricular pacemaker, no ischemia. Cardiac enzyme testing x 1 is not consistent with acute cardiac injury. Urinalysis shows glucose, no infection. Brain CT shows no acute bleed or mass effect. On exam, the patient appeared somewhat dehydrated. He was not toxic. Patient was given 1.5 L of IV saline. He received IV insulin, he was given 10 units and a repeat 10 units was ordered. His blood sugar is starting to trend down. The patient's glucose has been quite high here in the ED. I suspect his muscle spasms and muscle twitches are from dehydration and the hyperglycemia. The cause for the hypoglycemia a few days ago and now the hyperglycemia is unclear. Better glucose control is required. Hospitalization is indicated. I spoke with the patient and case management, the on-call hospitalist was consulted. Prior/Outside records/notes reviewed: Today's EMS notes describing his presentation and transport to this hospital. ECG per my interpretation: Indication was left arm spasm. The ECG shows a ventricular pacemaker with a rate of 61. There is no acute ST elevation, no PVCs. The QTc is 489. Continuous Cardiac Monitoring per my interpretation: An order was placed for continuous cardiac monitoring. The monitor shows a rate of 77 with ventricular pacing. Imaging/x-ray results per my interpretation: Chronic Medical/Social conditions affecting care: History of diabetes. Care/Management discussed with: Case management, the on-call hospitalist. Level of care consideration(s): After review of the information above and other included data: --I believe the patient requires escalation of care to admission DISPOSITION: Admission Past Med/Surg History Problem List Hyperglycemia Hypothermia (Acute) Fracture of cervical vertebra, C6 C5 cervical fracture C2 cervical fracture Status post fall (Acute) Acute respiratory failure with hypoxia (Acute) Multiple closed fractures of cervical vertebrae (Acute) Alcohol intoxication (Acute) DM (diabetes mellitus), type 2, uncontrolled w/neurologic complication (Acute) Factor V Leiden mutation (Acute) on warfarin daily Fatty liver (Chronic) ? 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) Morbid obesity (Chronic) CHRISTIANO (obstructive sleep apnea) (Acute) cpap Vitamin D deficiency (Chronic) Chronic anticoagulation Diabetic neuropathy (Chronic) Edema (Acute) Ambulatory dysfunction Complete heart block Status post placement of cardiac pacemaker Anemia History of DVT (deep vein thrombosis) Diastolic congestive heart failure Uncontrolled type 2 diabetes mellitus Loss of protective sensation of skin of foot Non-proliferative diabetic retinopathy, both eyes Vitreous hemorrhage Medical History Hives Supratherapeutic INR On anticoagulant therapy warfarin daily Bradycardia Hyperglobulinemia DVT, lower extremity ? pt denies Surgical History Status post appendectomy History of colonoscopy History of wisdom tooth extraction History of tooth extraction S/P tonsillectomy Family History Father Coronary heart disease Myocardial infarction Mother COPD (chronic obstructive pulmonary disease) Stroke Family history of diabetes mellitus Diabetes Brother Prostate cancer Coronary heart disease Grandfather (Paternal) Family history of diabetes mellitus Grandmother (Paternal) Family history of diabetes mellitus Other No family history of adverse response to anesthesia Denies family history of Ovarian cancer Breast cancer Colorectal cancer Social History Smoking Status: Never smoker Tobacco Type: Smokeless Tobacco (Dip or Chew) Second Hand Exposure: Yes (parents smoked); Do You Dip or Chew Tobacco: Yes; Hx Alcohol Use: No Hx Substance Use: No Preferred Language: Slovenian Communication Ability: Effective Visual Impairment: Limited Hearing Ability: Normal Hand Driller Required: No Beliefs That Will Affect Care: None marital status: Life Partner Current Living Situation: Alone Current Living Situation Comment: Lives with sister current occupational status: retired and disabled current occupation: [employer] Feels Safe at Home: Yes Childhood Exposure to Second-Hand Smoke: No Diet: diabetic caffeine: Yes Dental Care, Regularly: No Physical Activity Frequency: Does not Exercise Seatbelt Use: always Assistive Devices: Walker Allergies Allergies Allergy/AdvReac Type Severity Reaction Status Date / Time ceftriaxone Allergy Severe Hives Verified 05/19/23 15:24 Sulfa (Sulfonamide Allergy Intermediate HIVES-ITCHY Verified 05/19/23 15:24 Antibiotics) RASH Home Meds Home Medications Medication Instructions Recorded Confirmed atorvastatin 20 mg tablet 20 mg PO UD 01/16/24 01/16/24 ketoconazole 2 % topical cream 1 applic topical UD 01/16/24 01/16/24 metoprolol tartrate 50 mg tablet 50 mg PO UD 01/16/24 01/16/24 sildenafil 100 mg tablet 100 mg PO UD 01/16/24 01/16/24 Previous Rx's Medication Instructions Recorded acetaminophen 325 mg tablet 650 mg (2 x 325 mg) PO Q6H PRN 02/18/21 pain #30 tabs rivaroxaban 20 mg tablet (Xarelto) 20 mg PO DAILY #90 tabs 03/24/21 ergocalciferol (vitamin D2) 1,250 50,000 unit PO Q7D@0900 #14 caps 06/21/21 mcg (50,000 unit) capsule blood-glucose meter (Accu-Chek #1 ea 04/27/22 Guide Me Glucose Meter) lancets 30 gauge (OneTouch Delica #25 ea 04/27/22 Lancets) blood sugar diagnostic (OneTouch #300 ea 02/23/23 Ultra Test strips) furosemide 80 mg tablet 80 mg PO QAM #90 tabs 06/09/23 lancets (Accu-Chek Softclix #300 ea 06/09/23 Lancets) lisinopril 10 mg tablet 10 mg PO QAM #90 tabs 06/09/23 metformin 1,000 mg tablet 1,000 mg PO BID #180 tabs 06/09/23 insulin syringe-needle U-100 1 mL #300 ea 08/21/23 31 gauge x 5/16" (BD Insulin Syringe Ultra-Fine) gabapentin 300 mg capsule 300 mg PO DAILY #30 caps 09/13/23 insulin human U-100 NPH-regulr 20 - 50 unit (0.2 - 0.5 mL) subcut 10/31/23 70-30 mix 100 unit/mL subcutaneous TID #30 mL susp (Novolin 70/30 U-100 Insulin) cephalexin 500 mg capsule 500 mg PO TID prophylactic for 01/02/24 lower ext cellulitis #30 caps Results & Data (ED) Vital Signs Vital Signs - 24 hr 01/16/24 13:51 01/16/24 13:51 01/16/24 14:43 Temperature 36.8 C Temperature Source Oral Pulse Rate 63 60 Pulse Rate [Apical] 60 Pulse Rhythm Respiratory Rate 18 14 Blood Pressure 129/85 Blood Pressure [Right Arm] 129/85 Blood Pressure Mean 99 Blood Pressure Mean [Right Arm] 99 Blood Pressure Position Sitting Blood Pressure Position [Right Arm] Pulse Oximetry 99 99 Oxygen Delivery Method Room Air Room Air Sepsis Recent Fever Within 48 Hours No Sepsis New/Unexplained Change in Mental Status No Sepsis Action Taken by Nursing No Action Required 01/16/24 14:50 01/16/24 15:51 01/16/24 18:09 Temperature Temperature Source Pulse Rate 77 Pulse Rate [Apical] 63 61 Pulse Rhythm Regular Respiratory Rate 16 13 12 Blood Pressure Blood Pressure [Right Arm] 146/77 H 156/87 H Blood Pressure Mean Blood Pressure Mean [Right Arm] 100 110 Blood Pressure Position Blood Pressure Position [Right Arm] Pulse Oximetry 98 95 98 Oxygen Delivery Method Room Air Room Air Room Air Sepsis Recent Fever Within 48 Hours Sepsis New/Unexplained Change in Mental Status Sepsis Action Taken by Nursing 01/16/24 18:43 01/16/24 19:20 Temperature Temperature Source Pulse Rate 60 Pulse Rate [Apical] 60 Pulse Rhythm Respiratory Rate 22 Blood Pressure Blood Pressure [Right Arm] 141/77 H Blood Pressure Mean Blood Pressure Mean [Right Arm] 98 Blood Pressure Position Blood Pressure Position [Right Arm] Semi-fowlers Pulse Oximetry 98 Oxygen Delivery Method Room Air Sepsis Recent Fever Within 48 Hours Sepsis New/Unexplained Change in Mental Status Sepsis Action Taken by [facility] Medications Current Medication List: was personally reviewed by me Laboratory Data Attestation: I reviewed the patient's lab results. 01/16/24 14:47 01/16/24 15:51 Lab Results 01/16/24 01/16/24 01/16/24 Range/Units 14:47 15:39 15:51 WBC 7.51 (4.8-10.8) K/ul RBC 5.33 (4.70-6.10) M/uL Hgb 15.5 (14.0-18.0) g/dl Hct 47.0 (42.0-52.0) % MCV 88.2 (80.0-100.0) fL MCH 29.1 (25.0-34.0) pg MCHC 33.0 (32.0-36.0) g/dL RDW Std Deviation 41.6 (36.4-46.3) fL RDW Coeff of More[place] 13.0 (11.5-14.5) % Plt Count 281 (130-400) K/uL MPV 11.5 (9.4-12.4) fL Immature Gran % (Auto) 0.5 % Neut % (Auto) 70.6 % Lymph % (Auto) 17.6 % [place] % (Auto) 7.5 % Eos % (Auto) 2.9 % Baso % (Auto) 0.9 % Neut # (Auto) 5.30 (1.40-6.50) K/uL Lymph # (Auto) 1.32 (1.20-3.40) K/uL [place] # (Auto) 0.56 (0.11-0.59) K/uL Eos # (Auto) 0.22 (0.00-0.50) K/uL Baso # (Auto) 0.07 (0.00-0.20) K/uL Immature Gran # (Auto) 0.04 (0.01-0.20) K/uL Sodium 135 L (136-145) mmol/L Potassium TNP 4.3 Chloride 98 (98-107) mmol/L Carbon Dioxide 31 (21-32) mmol/L Anion Gap 6 (3-11) BUN 17 (6-23) mg/dl Creatinine 1.04 (0.6-1.4) mg/dl Est Cr Clr Drug Dosing 79.8 ml/min eGFR 78.70 BUN/Creatinine Ratio 16.3 (10-20) Glucose 457 H* (70-99(Fasting)) mg/dl POC Glucose (70-99) mg/dl Calcium 9.1 (8.6-10.3) mg/dl Magnesium 2.2 (1.7-2.4) mg/dl Total Bilirubin 0.6 (0.2-1.0) mg/dl AST TNP 15 ALT 13 (7-52) U/L Alkaline Phosphatase 102 (34-104) U/L Troponin I High Sens 18.1 (0-20) pg/ml Total Protein 7.4 (6.0-8.3) gm/dl Albumin 3.5 (3.4-5.0) gm/dl Globulin 3.9 (2.5-4.0) gm/dl Albumin/Globulin Ratio 0.9 (0.9-2) TSH 2.983 (0.300-4.500) uIu/ml Urine Color Yellow Urine Appearance Clear (Clear) Urine pH 5.5 (4.5-7.5) Ur Specific [place] 1.036 H (1.000-1.030) Urine Protein 1+ H (Negative) Urine Glucose (UA) 2+ H (Negative) Urine Ketones Negative (Negative) Urine Blood Negative (Negative) Urine Nitrite Negative (Negative) Urine Bilirubin Negative (Negative) Urine Urobilinogen Negative (Negative) Ur Leukocyte Esterase Negative (Negative) Urine WBC (Auto) 0-5 (0-5) /hpf Urine RBC (Auto) 0-2 (0-2) /hpf U Hyaline Cast (Auto) 0-2 (0-2) /lpf U Epithel Cells (Auto) 0-2 (0-2) /hpf Urine Bacteria (Auto) None Seen (None Seen) 01/16/24 01/16/24 01/16/24 Range/Units 15:58 16:00 18:15 WBC (4.8-10.8) K/ul RBC (4.70-6.10) M/uL Hgb (14.0-18.0) g/dl Hct (42.0-52.0) % MCV (80.0-100.0) fL MCH (25.0-34.0) pg MCHC (32.0-36.0) g/dL RDW Std Deviation (36.4-46.3) fL RDW Coeff of Morena (11.5-14.5) % Plt Count (130-400) K/uL MPV (9.4-12.4) fL Immature Gran % (Auto) % Neut % (Auto) % Lymph % (Auto) % [place] % (Auto) % Eos % (Auto) % Baso % (Auto) % Neut # (Auto) (1.40-6.50) K/uL Lymph # (Auto) (1.20-3.40) K/uL [place] # (Auto) (0.11-0.59) K/uL Eos # (Auto) (0.00-0.50) K/uL Baso # (Auto) (0.00-0.20) K/uL Immature Gran # (Auto) (0.01-0.20) K/uL Sodium (136-145) mmol/L Potassium Chloride (98-107) mmol/L Carbon Dioxide (21-32) mmol/L Anion Gap (3-11) BUN (6-23) mg/dl Creatinine (0.6-1.4) mg/dl Est Cr Clr Drug Dosing ml/min eGFR BUN/Creatinine Ratio (10-20) Glucose (70-99(Fasting)) mg/dl POC Glucose 481 H* 434 H* 312 H* (70-99) mg/dl Calcium (8.6-10.3) mg/dl Magnesium (1.7-2.4) mg/dl Total Bilirubin (0.2-1.0) mg/dl AST ALT (7-52) U/L Alkaline Phosphatase (34-104) U/L Troponin I High Sens (0-20) pg/ml Total Protein (6.0-8.3) gm/dl Albumin (3.4-5.0) gm/dl Globulin (2.5-4.0) gm/dl Albumin/Globulin Ratio (0.9-2) TSH (0.300-4.500) uIu/ml Urine Color Urine Appearance (Clear) Urine pH (4.5-7.5) Ur Specific [place] (1.000-1.030) Urine Protein (Negative) Urine Glucose (UA) (Negative) Urine Ketones (Negative) Urine Blood (Negative) Urine Nitrite (Negative) Urine Bilirubin (Negative) Urine Urobilinogen (Negative) Ur Leukocyte Esterase (Negative) Urine WBC (Auto) (0-5) /hpf Urine RBC (Auto) (0-2) /hpf U Hyaline Cast (Auto) (0-2) /lpf U Epithel Cells (Auto) (0-2) /hpf Urine Bacteria (Auto) (None Seen) Administered Medications Discontinued Medications Sodium Chloride (Nss) 500 mls @ 999 mls/hr IV .Q31M ONE Stop: 01/16/24 15:04 Last Infusion: 01/16/24 16:00 Dose: Infused Documented By: Admin: 01/16/24 14:51 Dose: 999 mls/hr Documented By: RUBI Sodium Chloride (Nss) 500 mls @ 999 mls/hr IV .Q31M ONE Stop: 01/16/24 16:53 Last Infusion: 01/16/24 18:00 Dose: Infused Documented By: Admin: 01/16/24 17:16 Dose: 999 mls/hr Documented By: MMF Sodium Chloride (Nss) 500 mls @ 999 mls/hr IV .Q31M ONE Stop: 01/16/24 19:07 Last Admin: 01/16/24 19:02 Dose: 999 mls/hr Documented By: TANNER Insulin Human Regular (Novolin-R Insulin Per Unit Charge) 10 units IV NOW STA Stop: 01/16/24 15:25 Last Admin: 01/16/24 16:10 Dose: 10 units Documented By: TANNER Co-signed By: ANA LAURA Insulin Human Regular (Novolin-R Insulin Per Unit Charge) 10 units IV NOW STA Stop: 01/16/24 18:38 Last Admin: 01/16/24 19:01 Dose: 10 units Documented By: TANNER Co-signed By: BK Imaging Data Radiologist's Impression: Head CT 01/16/24 14:34 CT head/brain wo con CLINICAL HISTORY: 68 years-old Male with fall. Acute head trauma status post fall TECHNIQUE: Multiple axial CT images of the head were obtained without contrast. A dose lowering technique was utilized adhering to the principles of ALARA. CT DOSE: 625.8 mGy.cm COMPARISON: 12/30/2023 FINDINGS: No acute intracranial hemorrhage, midline shift, intracranial mass, hydrocephalus, territorial ischemia or abnormal extra-axial collection. Involutional changes with chronic microvascular ischemic disease. The calvarium is intact. The paranasal sinuses, mastoid air cells, and middle ear cavities are clear. IMPRESSION: No acute intracranial abnormality or calvarial fracture. ACT 112: Negative or not required by law. The above report was generated using voice recognition software. It may contain grammatical, syntax or spelling errors. Electronically signed by: Jim Richards M.D. 01/16/2024 3:51 PM Discharge Plan Visit Data Chief Complaint: Facial Injury/Pain Stated Complaint: MUSCLE SPASMS IN FACE AND ARMS ED Provider: Francisco Aceves Discharge Problem: Syncope, Hyperglycemia, Acute head trauma, Muscle spasm, Acute dehydration Patient Disposition: Admitted As Inpatient Condition: Fair Forms Stand Alone Forms: [email or web address] Prescriptions Prescriptions: No Action ergocalciferol (vitamin D2) 1,250 mcg (50,000 unit) capsule 50,000 unit PO Q7D@0900 Qty: 14 0RF Rx Instructions: OTC unable to verify (DME) lancets [OneTouch Delica Lancets] 30 gauge misc See Dose Instructions .ROUTE .MEDSUPPLY Qty: 25 0RF Dose Instruction: As directed Rx Instructions: As directed (DME) blood-glucose meter [Accu-Chek Guide Me Glucose Mtr] Misc See Rx Instructions .Route Qty: 1 0RF Rx Instructions: As directed (DME) OneTouch Ultra Test Strip See Rx Instructions .Route Qty: 300 3RF Rx Instructions: TEST 3 TIMES DAILY; DX CODE E11.65 furosemide 80 mg tablet 80 mg PO QAM Qty: 90 3RF lisinopril 10 mg tablet 10 mg PO QAM Qty: 90 3RF metformin 1,000 mg tablet 1,000 mg PO BID Qty: 180 3RF (DME) lancets [Accu-Chek Softclix Lancets] Misc See Rx Instructions .Route Qty: 300 3RF Rx Instructions: test blood sugars three times daily (DME) insulin syringe-needle U-100 [BD Insulin Syringe Ultra-Fine] 1 mL 31 gauge x 5/16 syringe See Rx Instructions .ROUTE .MEDSUPPLY Qty: 300 3RF Rx Instructions: USE 3 TIMES DAILY; DX CODE- E11.49, E11.65 gabapentin 300 mg capsule 300 mg PO DAILY Qty: 30 2RF Rx Instructions: last filled 11/28 30 day supply Novolin 70/30 U-100 Insulin 100 unit/mL (70-30) suspension 20 - 50 unit subcut TID Qty: 30 2RF Rx Instructions: last filled 11/19 20 day supply as directed before meals Xarelto 20 mg tablet 20 mg PO DAILY Qty: 90 3RF Rx Instructions: 20 mg po daily. no fill history available acetaminophen 325 mg Tablet 650 mg PO Q6H PRN (Reason: pain) Qty: 30 0RF cephalexin 500 mg capsule 500 mg PO TID Qty: 30 3RF atorvastatin 20 mg tablet 20 mg PO UD Rx Instructions: 20mg po qam last filled 06/20/23 90 day supply #90 sildenafil 100 mg tablet 100 mg PO UD Rx Instructions: 100 mg po daily filled 10/01 6 day supply metoprolol tartrate 50 mg tablet 50 mg PO UD Rx Instructions: 50 mg po bid. no fill history available ketoconazole 2 % cream 1 applic topical UD Rx Instructions: 1 mohsen topical daily. no fill history available Apply to groin folds daily for 3 weeks for intertrigo Referrals Referrals: Rajan Marline,Xiao A, DO [Outside Practitioners] - Discharge Problem: Syncope Qualifiers: Syncope type: unspecified Qualified Code(s): R55 - Syncope and collapse Acute head trauma Qualifiers: Encounter type: initial encounter Qualified Code(s): S09.90XA - Unspecified injury of head, initial encounter
[2024-01-16] MEDS: SODIUM CHLORIDE 0.9% 500 ML IV ONE ×3 (14:51→19:02)
[2024-01-16 15:06] LABS: Basophils # (auto) 0.07 K/uL (0.00-0.20); Basophils % (auto) 0.9 %; Eosinophils # (auto) 0.22 K/uL (0.00-0.50); Eosinophils % (auto) 2.9 %; Hemoglobin 15.5 g/dl (14.0-18.0); Immature Granulocytes # (auto) 0.04 K/uL (0.01-0.20); Immature Granulocytes % (auto) 0.5 %; Lymphocytes # (auto) 1.32 K/uL (1.20-3.40); Lymphocytes % (auto) 17.6 %; Mean Corpuscular Hemoglobin 29.1 pg (25.0-34.0); Mean Corpuscular Volume 88.2 fL (80.0-100.0); Mean Platelet Volume 11.5 fL (9.4-12.4); Monocytes # (auto) 0.56 K/uL (0.11-0.59); Monocytes % (auto) 7.5 %; Neutrophils % (auto) 70.6 %; Platelet Count 281 K/uL (130-400); RDW Standard Deviation 41.6 fL (36.4-46.3); Red Blood Count 5.33 M/uL (4.70-6.10); White Blood Count 7.51 K/ul (4.8-10.8)
[2024-01-16 15:24] LABS: Glucose 457 mg/dl (70-99(Fasting))
[2024-01-16 15:25] LABS: Alanine Aminotransferase 13 U/L (7-52); Albumin Globulin Ratio 0.9 (0.9-2); Albumin Level 3.5 gm/dl (3.4-5.0); Alkaline Phosphatase 102 U/L (34-104); Anion Gap 6 (3-11); BUN Creatinine Ratio 16.3 (10-20); Bilirubin,Total 0.6 mg/dl (0.2-1.0); Blood Urea Nitrogen 17 mg/dl (6-23); Calcium 9.1 mg/dl (8.6-10.3); Carbon Dioxide 31 mmol/L (21-32); Chloride 98 mmol/L (98-107); Creatinine Clr Calc Pharmacy 79.8 ml/min; Globulin 3.9 gm/dl (2.5-4.0); Magnesium 2.2 mg/dl (1.7-2.4); Sodium 135 mmol/L (136-145); Total Protein 7.4 gm/dl (6.0-8.3); Troponin I High Sensitivity 18.1 pg/ml (0-20)
[2024-01-16 15:35] LABS: Thyroid Stimulating Hormone 2.983 uIu/ml (0.300-4.500)
--- NOTE | 2024-01-16 15:53 | CT Scan Report ---
CT head/brain wo con CLINICAL HISTORY: 68 years-old Male with fall. Acute head trauma status post fall TECHNIQUE: Multiple axial CT images of the head were obtained without contrast. A dose lowering tech nique was utilized adhering to the principles of ALARA. CT DOSE: 625.8 mGy.cm COMPARISON: 12/30/2023 FINDINGS: No acute intracranial hemorrhage, midline shift, intracranial mass, hydrocephalus, territorial ischem ia or abnormal extra-axial collection. Involutional changes with chronic microvascular ischemic disea se. The calvarium is intact. The paranasal sinuses, mastoid air cells, and middle ear cavities are clear . IMPRESSION: No acute intracranial abnormality or calvarial fracture. ACT 112: Negative or not required by law. The above report was generated using voice recognition software. It may contain grammatical, syntax o r spelling errors. Electronically signed by: Jim Richards M.D. 01/16/2024 3:51 PM
[2024-01-16 15:55] LABS: Appearance Urine Clear (Clear); Bacteria Urine Automated None Seen (None Seen); Bilirubin Urine Negative (Negative); Blood Urine Negative (Negative); Cast Urine Automated 0-2 /lpf (0-2); Color Urine Yellow; Epithelial Cell Urine Auto 0-2 /hpf (0-2); Glucose Urine UA 2+ (Negative); Ketones Urine Negative (Negative); Leukocyte Esterase Urine Negative (Negative); Nitrite Urine Negative (Negative); Protein Urine 1+ (Negative); RBC Urine Automated 0-2 /hpf (0-2); Specific Gravity Urine 1.036 (1.000-1.030); Urobilinogen Urine Negative (Negative); WBC Urine Automated 0-5 /hpf (0-5); pH Urine 5.5 (4.5-7.5)
[2024-01-16] MEDS: NovoLIN-R INSULIN PER UNIT CHARGE IV STA ×2 (16:10→19:01)
[2024-01-16 16:28] LABS: Potassium 4.3 mmol/L (3.5-5.1)
--- NOTE | 2024-01-16 18:56 | History & Physical Report ---
Date of Service January 16, 2024 Assessment & Plan (1) Hyperglycemia: Plan: Hyperglycemia BSG's greater than 400s in the ER. Persistently hyperglycemic despite IV fluid bolus x 3 and insulin 10 units x 2. Recommended for further monitoring and establishment of insulin requirements due to reported hypoglycemic to hyperglycemic swings at home Last hemoglobin A1c 12.5%, poorly controlled Patient is taking 70 units of 70/30 insulin once daily. He does not split this up into multiple doses daily. He reports he usually takes his 1 large dose of insulin at lunch. Reports he gets lows rarely, but recently did have a significant load at the 30s for which paramedics were called. Frequently has blood sugars in the 300s. This is unsurprising taking a single large dose of some disparity in the middle of the day. He reports he has not tried basal bolus insulin, but is interested in trying this if it worked better for him prevent at high levels. And prior admission he did well with glargine 12 units twice daily and NovoLog SSI. While he may be limited by cost or convenience, if able would strongly recommend switching to a basal bolus regimen on discharge. Patient feels that this was simplified to a clear with meal dose and a single long-acting dose he could do this at home, and does not mind giving 4 injections/day if needed. Blood sugar improving following 2 doses of IV insulin. Repeat pending. Will switch to basal bolus and follow glycemic needs overnight No signs of infection leading to blood sugar instability. No respiratory symptoms. UA is not infected appearing. No leukocytosis. Lasix held due to volume contraction (2) Fall: Plan: Fall Fall, patient reports due to hypoglycemia in the 30s. 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 He thinks that this worsened after his fall several days ago and he has had some spasms. No spasms are noted and biceps reflexes 2+ without crossing joint line/spasticity. He is not sure if this preceded his fall or not, and does not think this was present when he had his fall last month and was seen with C-spine fractures. Given focal strength deficits and fall will obtain MRIbrain to R/oh CVA, and extend down to the C-spine due to trauma Patient recent with multiple closed fractures of the neck after a unwitnessed fall in the setting of alcohol intoxication. No surgical intervention was required. She does not have any sensory compromise, and no vascular compromise. C-spine is nontender to palpation at time of ER admission. He is rotating his neck in both directions without difficulty or pain, noting only that he is hungry during exam PT/OT pending (3) Factor V Leiden mutation: Plan: Anticoagulation continued (4) DM (diabetes mellitus), type 2, uncontrolled w/neurologic complication: Plan Chronic stable issues: CHRISTIANO: Continue CPAP nightly Disposition: MSO Diet: DM2 CODE STATUS: Full code DVT prophylaxis: Anticoagulated History of Present Illness Primary Care Provider: Joe Nevraez MD Waylon ia 68yo M witha hx a T2DM presents with syncope, 1 episode of hypoglycemia 2 days ago, and now w. hyperglycemia, and fatigue. Recieved IV insulin 10u x2 in the ER + 1500cc NSS but remains hyperglycemic. Recommended for admission for syncope and BSG monitoring. Reports had a fall 2 days ago and having muscle cramps/spasms. No focal neurologic deficits. Patient also concerned for hypoglycemic to hyperglycemic swings and recommend for overnight monitoring and glycemic management. Waylon is seen at the bedside - REports frequent lows. Blood sugar dropped to 30 ~2 days ago. Was confused, shakey and got glucose from the paramedics and seemed to do OK after. Ate some peanut butter toast after to get sugar back up. REports low BSG is rare, less than once a month for him - Today reports he feels very shakey and his blood sugar has been high. Shakes are gone in the ER, but was worried he might have had an issue from the fall since his arm was termoring this morning. No sensation change. Does feel he has a significatn loss of strength in his left arm which is persistent. - Reports low blood sugars are rare for him - Takes 70/30 insulin 70units once daily. Takes this before lunch. Does not like to split his insulin up. Blood sugar usually 160s-180s. SOmetimes high ~300s. Usually has a 'a couple' highs per week no chest pain or chest pressure. No sweating. No lightheadedness of dizziness. Does get sweats with low sugars, but none currently. No recent illnesses. No fevers or chills. No abdominal pain. No headache No vision change Medical History: Reviewed Medications: Reviewed Surgical History: Reviewed Family history: Reviewed Allergies: Reviewed Social History: No tobacco use. Rare etoh use, denies recent alcohol use. Code Status: Full Code Allergies Allergy/AdvReac Type Severity Reaction Status Date / Time ceftriaxone Allergy Severe Hives Verified 05/19/23 15:24 Sulfa (Sulfonamide Allergy Intermediate HIVES-ITCHY Verified 05/19/23 15:24 Antibiotics) RASH Home Medications Medication Instructions Recorded Confirmed Type acetaminophen 325 mg tablet 650 mg (2 x 325 mg) PO Q6H PRN 02/18/21 01/16/24 Rx pain #30 tabs rivaroxaban 20 mg tablet (Xarelto) 20 mg PO DAILY #90 tabs 03/24/21 01/16/24 Rx ergocalciferol (vitamin D2) 1,250 50,000 unit PO Q7D@0900 #14 caps 06/21/21 01/16/24 Rx mcg (50,000 unit) capsule blood-glucose meter (Accu-Chek #1 ea 04/27/22 04/21/23 Rx Guide Me Glucose Meter) lancets 30 gauge (OneTouch Delica #25 ea 04/27/22 04/21/23 Rx Lancets) blood sugar diagnostic (OneTouch #300 ea 02/23/23 04/21/23 Rx Ultra Test strips) furosemide 80 mg tablet 80 mg PO QAM #90 tabs 06/09/23 01/16/24 Rx lancets (Accu-Chek Softclix #300 ea 06/09/23 Rx Lancets) lisinopril 10 mg tablet 10 mg PO QAM #90 tabs 06/09/23 01/16/24 Rx metformin 1,000 mg tablet 1,000 mg PO BID #180 tabs 06/09/23 01/16/24 Rx insulin syringe-needle U-100 1 mL #300 ea 08/21/23 Rx 31 gauge x 5/16" (BD Insulin Syringe Ultra-Fine) gabapentin 300 mg capsule 300 mg PO DAILY #30 caps 09/13/23 01/16/24 Rx insulin human U-100 NPH-regulr 20 - 50 unit (0.2 - 0.5 mL) subcut 10/31/23 01/16/24 Rx 70-30 mix 100 unit/mL subcutaneous TID #30 mL susp (Novolin 70/30 U-100 Insulin) cephalexin 500 mg capsule 500 mg PO TID prophylactic for 01/02/24 01/16/24 Rx lower ext cellulitis #30 caps atorvastatin 20 mg tablet 20 mg PO UD 01/16/24 01/16/24 History ketoconazole 2 % topical cream 1 applic topical UD 01/16/24 01/16/24 History metoprolol tartrate 50 mg tablet 50 mg PO UD 01/16/24 01/16/24 History sildenafil 100 mg tablet 100 mg PO UD 01/16/24 01/16/24 History Past Med/Surg History Problem List (Updated 01/16/24 @ 19:53 by Mau Ibarra MD) Fall Hyperglycemia Hypothermia (Acute) Fracture of cervical vertebra, C6 C5 cervical fracture C2 cervical fracture Status post fall (Acute) Acute respiratory failure with hypoxia (Acute) Multiple closed fractures of cervical vertebrae (Acute) Alcohol intoxication (Acute) DM (diabetes mellitus), type 2, uncontrolled w/neurologic complication (Acute) Factor V Leiden mutation (Acute) on warfarin daily Fatty liver (Chronic) ? 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) Morbid obesity (Chronic) CHRISTIANO (obstructive sleep apnea) (Acute) cpap Vitamin D deficiency (Chronic) Chronic anticoagulation Diabetic neuropathy (Chronic) Edema (Acute) Ambulatory dysfunction Complete heart block Status post placement of cardiac pacemaker Anemia History of DVT (deep vein thrombosis) Diastolic congestive heart failure Uncontrolled type 2 diabetes mellitus Loss of protective sensation of skin of foot Non-proliferative diabetic retinopathy, both eyes Vitreous hemorrhage Medical History Hives Supratherapeutic INR On anticoagulant therapy warfarin daily Bradycardia Hyperglobulinemia DVT, lower extremity ? pt denies Surgical History Status post appendectomy History of colonoscopy History of wisdom tooth extraction History of tooth extraction S/P tonsillectomy Family History Father Coronary heart disease Myocardial infarction Mother COPD (chronic obstructive pulmonary disease) Stroke Family history of diabetes mellitus Diabetes Brother Prostate cancer Coronary heart disease Grandfather (Paternal) Family history of diabetes mellitus Grandmother (Paternal) Family history of diabetes mellitus Other No family history of adverse response to anesthesia Denies family history of Ovarian cancer Breast cancer Colorectal cancer Social History Smoking Status: Never smoker Tobacco Type: Smokeless Tobacco (Dip or Chew) Second Hand Exposure: Yes (parents smoked); Do You Dip or Chew Tobacco: Yes; Hx Alcohol Use: No Hx Substance Use: No Preferred Language: Prydeinig Communication Ability: Effective Visual Impairment: Limited Hearing Ability: Normal Clay Artist Required: No Beliefs That Will Affect Care: None marital status: Life Partner Current Living Situation: Alone Current Living Situation Comment: Lives with sister current occupational status: retired and disabled current occupation: [employer] Feels Safe at Home: Yes Childhood Exposure to Second-Hand Smoke: No Diet: diabetic caffeine: Yes Dental Care, Regularly: No Physical Activity Frequency: Does not Exercise Seatbelt Use: always Assistive Devices: Walker Physical Exam Physical Exam: General: A&Ox3. NAD. Cooperative. HEENT: Atraumatic, normocephalic. Hearing grossly intact Pulm: CTAB A&P. -wheezes, -rales, -rhonchi. Symmetrical chest rise. No increased work of breathing. No respiratory distress. Cardiac: RRR, -mrg. Radial pulses intact and symmetrical. Abdominal: Nontender, nondistended, soft. BS present. Extremities: Left upper extremity with 4 -/5 elbow flexion, elbow extension, gri p compared to 5/5 on the left. Hip flexion, ankle dorsiflexion/plantarflexion are 5/5 bilaterally. Sensation of soft touch is intact in hands and feet bilaterally without asymmetry. Biceps reflexes 2+. Radial pulses intact bilaterally. Spine: No midline spinal tenderness to palpation time of admission. Results & Data Results & Data Vital Signs (Past 12 Hours) Vital Signs Temp Pulse Pulse Resp BP BP Pulse Ox 01/16/24 18:43 60 01/16/24 18:09 61 12 156/87 H 98 01/16/24 15:51 63 13 146/77 H 95 01/16/24 14:50 77 16 98 01/16/24 14:43 60 01/16/24 13:51 60 14 129/85 99 01/16/24 13:51 36.8 C 63 18 129/85 99 O2 Del Method 01/16/24 18:43 12/10/24 18:09 Room Air 01/16/24 15:51 Room Air 01/16/24 14:50 Room Air 01/16/24 14:43 01/16/24 13:51 Room Air 01/16/24 13:51 Room Air PG Care Time/CCT Total # of Minutes Spent Total Time Spent with Patient: Total time spent is greater than 50% in coordination of care (as documented) at patient's floor/unit and/or counseling patient: Coding Level of Care Code 49318 INT INP/OBS CARE 3/75MIN Diagnoses Hyperglycemia R73.9 Fall W19.XXXA Factor V Leiden mutation D68.51 DM (diabetes mellitus), type 2, uncontrolled w/neurologic complication E11.49; E11.65
[2024-01-16] MEDS ORDERED: DEXTROSE 50% 50 ML SYRINGE IV PRN (19:21)
[2024-01-16] MEDS ORDERED: GLUCAGON FOR INJ 1 MG VIAL SQ PRN (19:21)
[2024-01-16] MEDS ORDERED: GLUCOSE 40% GEL 15 GM TUBE PO PRN (19:21)
[2024-01-16] MEDS ORDERED: GLUCOSE 10 TAB/TUBE PO PRN (19:21)
[2024-01-16] MEDS ORDERED: CARBOHYDRATES FOR HYPOGLYCEMIA PO PRN (19:21)
[2024-01-16] MEDS: INSULIN ASPART PER UNIT CHARGE SC SCH (22:07)
[2024-01-16] MEDS: LANTUS PER UNIT CHARGE SQ SCH (22:07)
[2024-01-16] MEDS: cephALEXin 500 MG CAP PO SCH (22:08)
[2024-01-16] MEDS: ATORVASTATIN 20 MG TAB PO SCH (22:08)
[2024-01-16] MEDS: METOPROLOL TARTRATE 50 MG TAB PO SCH (22:09)
[2024-01-17 07:02] LABS: Basophils # (auto) 0.07 K/uL (0.00-0.20); Eosinophils # (auto) 0.23 K/uL (0.00-0.50); Eosinophils % (auto) 3.2 %; Hematocrit (blood only) 43.7 % (42.0-52.0); Hemoglobin 14.4 g/dl (14.0-18.0); Immature Granulocytes # (auto) 0.04 K/uL (0.01-0.20); Immature Granulocytes % (auto) 0.6 %; Lymphocytes % (auto) 23.8 %; Mean Corpuscular Volume 88.1 fL (80.0-100.0); Mean Platelet Volume 11.4 fL (9.4-12.4); Monocytes # (auto) 0.63 K/uL (0.11-0.59); Monocytes % (auto) 8.8 %; Neutrophils # (auto) 4.46 K/uL (1.40-6.50); Neutrophils % (auto) 62.6 %; Platelet Count 248 K/uL (130-400); RDW Coefficient of Variation 12.8 % (11.5-14.5); RDW Standard Deviation 41.8 fL (36.4-46.3); Red Blood Count 4.96 M/uL (4.70-6.10); White Blood Count 7.13 K/ul (4.8-10.8)
[2024-01-17 07:40] LABS: BUN Creatinine Ratio 25.8 (10-20); Blood Urea Nitrogen 17 mg/dl (6-23); Calcium 8.8 mg/dl (8.6-10.3); Carbon Dioxide 28 mmol/L (21-32); Chloride 101 mmol/L (98-107); Creatinine Clr Calc Pharmacy 140.5 ml/min; Glucose 328 mg/dl (70-99(Fasting))
--- NOTE | 2024-01-17 07:45 | Hospitalist Progress Note ---
Date of Service January 17, 2024 Assessment & Plan (1) Hyperglycemia: Plan: Hyperglycemia BSG's greater than 400s in the ER. Persistently hyperglycemic despite IV fluid bolus x 3 and insulin 10 units x 2. Recommended for further monitoring and establishment of insulin requirements due to reported hypoglycemic to hyperglycemic swings at home Last hemoglobin A1c 12.5%, poorly controlled Patient is taking 70 units of 70/30 insulin once daily. He does not split this up into multiple doses daily. He reports he usually takes his 1 large dose of insulin at lunch. Reports he gets lows rarely, but recently did have a significant load at the 30s for which paramedics were called. Frequently has blood sugars in the 300s. This is unsurprising taking a single large dose of some disparity in the middle of the day. He reports he has not tried basal bolus insulin, but is interested in trying this if it worked better for him prevent at high levels. And prior admission he did well with glargine 12 units twice daily and NovoLog SSI. While he may be limited by cost or convenience, if able would strongly recommend switching to a basal bolus regimen on discharge. Patient feels that this was simplified to a clear with meal dose and a single long-acting dose he could do this at home, and does not mind giving 4 injections/day if needed. Blood sugar improving following 2 doses of IV insulin. Repeat pending. Will switch to basal bolus and follow glycemic needs overnight No signs of infection leading to blood sugar instability. No respiratory symptoms. UA is not infected appearing. No leukocytosis. Lasix held due to volume contraction 01/16 Improving BSG 457 on admission Given 10u IV insulin x 2, 500cc NSS bolus x 3 POC 302 this morning but presently 284 Remains on GLARGINE 12u BID with SLIDING SCALE INSULIN for mealtime coverage * Also appears was admitted at the end of December for fall/multiple vertebrae fractures in the setting of alcohol intoxication. Appears notes about possible dc on glargine 12u BID but doesn't appear medications changed at discharged and recommended he follow up primary care to discuss regimen with A1c 12.5 * HE DENIES having issue with taking insulin more frequently scheduled and/or mealtime as needed, unclear why he wasn't sent on such last time Will plan to monitor on prior regimen and if stable can consider continuing such at dc however will consult pharmacy for glycemic management to assist given below/aflutter on pacemaker interrogation given syncope ORACLE DBA reported w/ low BSGs Lisinopril held for now, BP borderline. Lasix on hold. Metoprolol w/ hold parameters. Defer additional IVF for now as appears Also checking Lumbar spine xray (prior cervical w/ avulsion fracture, could contribute to upper redevelopment manager strength issues) Has reported sx for >2 days MRI brain/cervical spine ordered/not yet performed from admission Also checked pacemaker, AFLUTTER--> TSH wnl. Moving med/tele, luis miguel w/ reported syncope (but sounds like from low BSG) Check ECHO, cards consult. Continue BB/xarelto (reports not missing doses that he is aware of) PT/OT consults pending (2) Atrial flutter: Plan: Reported fall/tremors. EKG w/ Vpaced. Pacemaker interrogation performed given reports of syncope and has pacemaker for hx heart block. TSH not elevated on check Rep called to say has been in aflutter which she reports he is in most of the time and paces in ventricle 100% of the time Orders to move to monitored bed. Mag/K replete on admission, will repeat mag Remains on Xarelto 20mg daily, Metoprolol BID ECHO to be obtained Cardiology consulted, to be seen later today Monitor on telemetry (3) Fall: Plan: Suspected on admission 2nd to hypoglycemia in the 30s. Denied alcohol use Has pacemaker for hx heart block CT head negative for acute abn on admission Patient recent with multiple closed fractures of the neck after a unwitnessed fall in the setting of alcohol intoxication. No surgical intervention was required. Patient does have 4 -/5 redevelopment manager strength, elbow flexion, elbow extension compared to robust 5/5 in the right. He thinks that this worsened after his fall several days ago and he has had some spasms. No spasms are noted and biceps reflexes 2+ without crossing joint line/spasticity. He is not sure if this preceded his fall or not, and does not think this was present when he had his fall last month and was seen with C-spine fractures. Given focal strength deficits and fall will obtain MRIbrain to R/oh CVA, and extend down to the C-spine due to trauma MRI brain negative, involutional changes/chronic microvascular disease (?2nd to DM) MRI cervical spine pending Lumbar xray ordered PT/OT consulted (4) Factor V Leiden mutation: Plan: Anticoagulation continued with xarelto + aflutter on pacemaker interrogation, moved to telemetry/cards consulted/echo ordered (5) DM (diabetes mellitus), type 2, uncontrolled w/neurologic complication: Plan: A1c 12.5 Pharmacy consulted, see above. DM educator consulted while inpatient Planning for basal/bolus at wy BSGs stable/improved from admission and appreciate glycemic assistance Plan Chronic stable issues: CHRISTIANO: Continue CPAP nightly Dispo: continued inpatient stay, working on DM/glycemic control (improving) moving to monitored bed given aflutter. echo/cards consulted PT/OT consulted Admission and Anticipated Discharge Date Admission Date: January 16, 2024 Supervising Physician Co-Signing Physician Notes The patient was not seen by me. The chart was reviewed. Case discussed with TIAN Hernandez. Agree with assessment and plan Subjective EVal this morning, sitting up in bed. Had done pacer interrogation, has been in aflutter. No prior hx fib/flutter. Has been having issues with low blood sugars, denies any prior reported issue with taking insulin more frequently or meal time. Thinks he has mariah at home but hasn't used. Strongly encouraged. Has had tremor at times, does report some decreased strength with redevelopment manager to his left hand compared to the right as well as some MINIMAL decreased dorsiflexion but was told he has "permanent damage". Physical Exam 2 Physical Exam: General: 68yo obese male sitting up at the side of the bed, NAD HEENT: head atraumatic, normocephalic, mm slightly dry, trachea midline, +facial hair Resp: even/unlabored, no tachypnea, bibasilar crackles but no wheezing/rales, on room air CV: RRR/slightly geno at times, ?faint systolic murmur, no significant LE edema, calves nontender/pulses present GI: +BS, soft/NT no lin MSK/Neuro: slight decreased redevelopment manager strength on the left compared to the right, pulses present able to raise bilateral arms above head, follow commands also has FAINT decreased PLANTARFLEXION on the left compared to the right but otherwise nonfocal (reports chronic low back pain) Psych: AOx3, cooperative with exam Results & Data Results & Data Vital Signs (Past 12 Hours) Vital Signs Temp Pulse Pulse Resp BP BP BP 01/17/24 07:20 36.4 C L 60 16 96/61 L 01/17/24 06:00 36.5 C 60 20 130/77 01/17/24 00:12 61 32 H 01/16/24 21:11 01/16/24 21:11 36.4 C L 62 18 159/76 H 01/16/24 21:11 36.4 C L 62 18 159/76 H 01/16/24 20:52 61 18 106/65 Pulse Ox O2 Del Method 01/17/24 07:20 96 Room Air 01/17/24 06:00 95 Room Air 01/17/24 00:12 97 01/16/24 21:11 Room Air 01/16/24 21:11 97 Room Air 01/16/24 21:11 97 Room Air 01/16/24 20:52 98 Room Air Laboratory Results 01/17/24 05:49 01/17/24 09:43 Na 135 K 4.4 Chloride 101 Carbon Dioxide 28 AG TNP BUN/Cr 17/0.66 Glu 328 Mag 2.2 TSH 2.[address] 01/16/24 14:34 CT head/brain wo con CLINICAL HISTORY: 68 years-old Male with fall. Acute head trauma status post fall TECHNIQUE: Multiple axial CT images of the head were obtained without contrast. A dose lowering technique was utilized adhering to the principles of ALARA. CT DOSE: 625.8 mGy.cm COMPARISON: 12/30/2023 FINDINGS: No acute intracranial hemorrhage, midline shift, intracranial mass, hydrocephalus, territorial ischemia or abnormal extra-axial collection. Involutional changes with chronic microvascular ischemic disease. The calvarium is intact. The paranasal sinuses, mastoid air cells, and middle ear cavities are clear. IMPRESSION: No acute intracranial abnormality or calvarial fracture. ACT 112: Negative or not required by law. The above report was generated using voice recognition software. It may contain grammatical, syntax or spelling errors. Electronically signed by: Jim Richards M.D. 01/16/2024 3:51 PM Brain MRI 01/17/24 00:00 MR brain wo con HISTORY: 68 years-old Male LUE weakness acute strokelike symptoms COMPARISON: MRI cervical spine of same day, head CT 01/16/2024, brain MRI 04/01/2016 TECHNIQUE: Multiplanar multisequence MRI of the brain was obtained without IV contrast FINDINGS: No restricted diffusion. Midline structures are unremarkable. Degenerative changes of the cervical spine. No acute intracranial hemorrhage, midline shift, abnormal extra axial collection, hydrocephalus or intra-axial mass. Mesial temporal lobes appear normal without evidence of mesial temporal sclerosis. Involutional changes with mild to moderate T2/FLAIR hyperintense foci throughout the white matter. The cerebral venous sinuses and major arterial flow voids appear patent. Skull, orbits and soft tissues are unremarkable. Trace right mastoid effusion. Minimal mucosal thickening of the paranasal sinuses. IMPRESSION: 1. No acute intracranial abnormality. No acute or subacute infarct. 2. Involutional changes with chronic microvascular ischemic disease. ACT 112: Negative or not required by law. The above report was generated using voice recognition software. It may contain grammatical, syntax or spelling errors. Electronically signed by: Jim Richards M.D. 01/17/2024 2:36 PM Lumbar Spine X-Ray 01/17/24 11:02 XR lumbar spine 2-3V CLINICAL HISTORY: LLE dorsiflexion weakness TECHNIQUE: 3 views of the lumbar spine were obtained. Comparison: Comparison is made to MRI lumbar spine 04/03/2016 FINDINGS: There is no evidence of an acute fracture. Degenerative changes are seen in the lumbar spine with osteophyte formation and disc space narrowing. Grade 1 anterolisthesis of L5-S1 is again noted. No soft tissue abnormality is seen. IMPRESSION: Degenerative changes as above without acute fracture or subluxation. ACT 112: Negative or not required by law. Electronically signed by: Newton Hayes M.D. 01/17/2024 2:32 PM PG Care Time/CCT Total # of Minutes Spent Total Time Spent with Patient: Total time spent is greater than 50% in coordination of care (as documented) at patient's floor/unit and/or counseling patient: Coding Level of Care Code 04235 SUB INP/OBS CARE 3/50MIN Diagnoses Hyperglycemia R73.9 Atrial flutter I48.92 Fall W19.XXXA Factor V Leiden mutation D68.51 DM (diabetes mellitus), type 2, uncontrolled w/neurologic complication E11.49; E11.65
[2024-01-17] MEDS: RIVAROXABAN 20 MG TAB PO SCH (08:31)
[2024-01-17] MEDS: GABAPENTIN 300 MG CAP PO SCH (08:32)
--- NOTE | 2024-01-17 08:33 | Electrocardiogram Report ---
Test Reason : Blood Pressure : */* mmHG Vent. Rate : 61 BPM Atrial Rate : 70 BPM P-R Int : * ms QRS Dur : 150 ms QT Int : 486 ms P-R-T Axes : * 257 75 degrees QTcB Int : 489 ms Ventricular-paced rhythm Abnormal ECG When compared with ECG of 31-Dec-2023 10:48, Vent. rate has decreased by 2 bpm Confirmed by Jesus Manuel Chapman ([id number]) on 01/17/2024 8:33:44 AM Referred By: REFERRED SELF Confirmed By: Jesus Manuel Chapman
[2024-01-17] MEDS ORDERED: lisinopril 10 MG TAB PO SCH (09:00)
[2024-01-17] MEDS: THIAMINE HCL 100 MG TAB PO SCH (09:07)
[2024-01-17 09:15] LABS: Magnesium 2.2 mg/dl (1.7-2.4); Sodium 135 mmol/L (136-145)
--- NOTE | 2024-01-17 10:27 | Electrocardiogram Report ---
Test Reason : Blood Pressure : */* mmHG Vent. Rate : 60 BPM Atrial Rate : 59 BPM P-R Int : * ms QRS Dur : 182 ms QT Int : 536 ms P-R-T Axes : 100 263 87 degrees QTcB Int : 536 ms Ventricular-paced rhythm Abnormal ECG When compared with ECG of 16-Jan-2024 14:41, No significant change was found Confirmed by Jesus Manuel Chapman ([id number]) on 01/17/2024 10:26:50 AM Referred By: REFERRED SELF Confirmed By: Jesus Manuel Chapman
[2024-01-17] MEDS ORDERED: PHARMACY GLYCEMIC MGMT CONSULT PRN (11:34)
[2024-01-17] MEDS ORDERED: INSULIN HUMAN REGULAR PER UNIT 5 UNITS in SYRINGE 4.95 ML IV ONE (12:30)
[2024-01-17] MEDS ORDERED: LANTUS PER UNIT CHARGE SQ ONE (12:45)
--- NOTE | 2024-01-17 13:40 | Pharmacy Report ---
Pharmacy Glycemic Short Note 2 - Date of Service January 17, 2024 - Glycemic Short BSG Results (Last 24 hours): 01/16/24 01/16/24 01/16/24 14:47 15:58 16:00 Glucose 457 H* POC Glucose 481 H* 434 H* 01/16/24 01/16/24 01/16/24 18:15 20:43 21:42 Glucose POC Glucose 312 H* 186 H 193 H 01/17/24 01/17/24 01/17/24 05:49 05:56 05:57 Glucose 328 H* POC Glucose 307 H* 352 H* 01/17/24 01/17/24 01/17/24 05:58 07:36 08:15 Glucose POC Glucose 302 H* 284 H 296 H 01/17/24 01/17/24 12:06 12:07 Glucose POC Glucose 331 H* 385 H* OUTPATIENT ANTIDIABETIC REGIMEN: * Novolin 70/30 - 70 units once daily at lunch time / per provider notes ASSESSMENT: * 68 year old admitted with hyperglycemia, weakness. Received multiple IV insulin boluses last evening and started on insulin regimen similar to last admission. BSG 385 mg/dL at time of consult - will give 5 units iv x1 now and tighten novolog to weight based stress 3 dosing (based upon adj bw). Received 12 units of basal insulin this AM, will double dose and give 25 units x 1 now to target daily basal insulin dose closer to ~40 units. PLAN FOR INPATIENT GLYCEMIC CONTROL: * Hold outpatient oral diabetes medications * Basal insulin * Lantus 12 units + 25 units today * Lantus 35-40 units daily starting tomorrow AM * Bolus insulin * NovoLog per scale ACHS or Q6hrs while NPO * Goal Range: Low 110 mg/dL - High 140 mg/dL * Correction Factor: 20 mg/dL/unit * Nutritional / Prandial insulin per carb ratio of 1 unit per 6 grams CHO consumed
--- NOTE | 2024-01-17 14:33 | XRay Report ---
XR lumbar spine 2-3V CLINICAL HISTORY: LLE dorsiflexion weakness TECHNIQUE: 3 views of the lumbar spine were obtained. Comparison: Comparison is made to MRI lumbar spine 04/03/2016 FINDINGS: There is no evidence of an acute fracture. Degenerative changes are seen in the lumbar spine with ost eophyte formation and disc space narrowing. Grade 1 anterolisthesis of L5-S1 is again noted. No soft tissue abnormality is seen. IMPRESSION: Degenerative changes as above without acute fracture or subluxation. ACT 112: Negative or not required by law. Electronically signed by: Newton Hayes M.D. 01/17/2024 2:32 PM
--- NOTE | 2024-01-17 14:38 | Magnetic Resonance Report ---
MR brain wo con HISTORY: 68 years-old Male LUE weakness acute strokelike symptoms COMPARISON: MRI cervical spine of same day, head CT 01/16/2024, brain MRI 04/01/2016 TECHNIQUE: Multiplanar multisequence MRI of the brain was obtained without IV contrast FINDINGS: No restricted diffusion. Midline structures are unremarkable. Degenerative changes of the cervical sp ine. No acute intracranial hemorrhage, midline shift, abnormal extra axial collection, hydrocephalus or intra-axial mass. Mesial temporal lobes appear normal without evidence of mesial temporal sclerosi s. Involutional changes with mild to moderate T2/FLAIR hyperintense foci throughout the white matter. The cerebral venous sinuses and major arterial flow voids appear patent. Skull, orbits and soft tissu es are unremarkable. Trace right mastoid effusion. Minimal mucosal thickening of the paranasal sinuse s. IMPRESSION: 1. No acute intracranial abnormality. No acute or subacute infarct. 2. Involutional changes with chronic microvascular ischemic disease. ACT 112: Negative or not required by law. The above report was generated using voice recognition software. It may contain grammatical, syntax o r spelling errors. Electronically signed by: Jim Richards M.D. 01/17/2024 2:36 PM
--- NOTE | 2024-01-17 15:09 | Magnetic Resonance Report ---
MR cervical spine wo con HISTORY: 68 years-old Male LUE weakness Acute neck pain with left upper extremity weakness. COMPARISON: Brain MRI of same day, CT thoracic and cervical spine 12/30/2023. TECHNIQUE: Multiplanar multisequence MRI of the cervical spine was obtained without IV contrast. FINDINGS: Study is motion degraded. The imaged posterior fossa structures are unremarkable. Mild to moderate ma rrow edema noted at C5-C6 which is likely degenerative. There is additional mild to moderate marrow e carl involving the superior endplate of T2 with unchanged vertebral body heights compared to the prio r CT. Trace prevertebral edema of the mid cervical spine is likely degenerative. No definite acute fr acture, subluxation or marrow replacing process. No epidural fluid collections. C2-C3: Mild intervertebral disc space narrowing and uncovertebral hypertrophy with small posterior di sc osteophyte complex. Mild to moderate facet arthrosis. Central canal is generally patent. Minimal b ilateral foraminal narrowing. C3-C4: Mild to moderate intervertebral disc space narrowing with posterior annular disc bulge/disc os teophyte complex which is eccentric to the left lateral recess and left neural foramen. Mild facet ar throsis. Minimal central canal stenosis with AP dimension of the thecal sac measuring 9 mm. Severe le ft with moderate right foraminal narrowing. C4-C5: Severe intervertebral disc space narrowing with degenerative partial bony fusion. Circumferent ial disc osteophyte complex is largest centrally with moderate facet arthrosis. AP dimension of the t hecal sac is 6 mm. Moderate central canal stenosis. Moderate to severe left with severe right foramin al narrowing. C5-C6: Moderate intervertebral disc space narrowing with circumferential disc osteophyte complex and moderate facet arthrosis. AP dimension of the thecal sac is 6 mm. Moderate central canal stenosis. Se chhaya bilateral foraminal narrowing. C6-C7: Moderate intervertebral disc space narrowing. Circumferential disc osteophyte complex with lef t paracentral disc protrusion. Moderate facet arthrosis. AP dimension of the thecal sac is 6 mm. Mode rate central canal stenosis. Moderate to severe bilateral foraminal stenosis. C7-T1: Mild to moderate intervertebral disc space narrowing with moderate facet arthrosis. Patent pineda tral canal. Mild bilateral foraminal narrowing. IMPRESSION: 1. Discogenic degeneration with spondylotic spurring and facet arthrosis as above resulting in multil evel central canal and neural foraminal narrowing. 2. Areas of scattered marrow edema, likely degenerative. 3. Normal signal of the cervical spinal cord. ACT 112: Negative or not required by law. The above report was generated using voice recognition software. It may contain grammatical, syntax o r spelling errors. Dictated: 01/17/2024 2:39 PM Transcribed: 01/17/2024 3:01 PM Celia [id number] VINEET_Rogerio [id number] Electronically signed by: Jim Richards M.D. 01/17/2024 3:08 PM
[2024-01-17] MEDS: SODIUM CHLORIDE 0.9% 1,000 ML IV SCH (15:15)
[2024-01-17] MEDS: LANTUS PER UNIT CHARGE SQ ONE ×2 (15:28→15:37)
--- NOTE | 2024-01-17 15:31 | Communication Note ---
Date of Service: January 17, 2024 Orthostatic VS obtained this morning as well, HR dropped 23points with standing. Lasix 80mg daily on HOLD, lisinopril placed on HOLD for this morning (did not receive) BP 107/74 presently. IVF hydration ordered for overnight and will monitor repeat orthostatic VS. Continued telemetry monitoring/cards consult/echo ordered. Remains on metoprolol/xarelto. EEG ordered for tremor reported for completeness (MRI brain NEGATIVE)
[2024-01-17] MEDS: CYANOCOBALAMIN 1000 MCG/ML VIAL IM SCH (17:59)
--- NOTE | 2024-01-17 18:26 | XCELERA ---
[id number]
[2024-01-17] MEDS: oxyCODONE/ACETAMINOPHEN 10-325 TAB PO PRN (19:51)
[2024-01-18] MEDS: INSULIN ASPART PER UNIT CHARGE SC SCH (02:20)
--- NOTE | 2024-01-18 07:54 | Hospitalist Progress Note ---
Date of Service January 18, 2024 Assessment & Plan (1) Seizure-like activity: Plan: EVal this morning. Witnessed seizure like activity with jerking of his left upper arm, lasting about 1-2 minutes with kitchen staff. Did NOT loose consciousness. Has jelly on head but not performed EEG yet. He notes he can feel almost an aura of facial tightness on his left before they occur. Discussed possible seizure w/ low blood sugars however did not have BSG obtained (RN to check now). Discussed neurology consult, ativan to be available but to alert nursing if having sensation one coming on so that we can provide medications to prevent but could have some weakness on that side from a miguelina's paralysis. Telemetry w/ paced aflutter, reports seen by cardiology and nothing to change at this time/on the right beds. No fever/chills, chest pain, shortness of breath provided. After leaving room, patient w/ additional suspected focal motor seizure lasting about 45-90 seconds. Maintained consciousness during and was able to answer my questions. Did have some weakness in left arm following, ?todds paralysis. Ativan 1mg IV stat provided. POC Glu 223 added stat prolactin level EEG pending, Will make ativan IV available as needed Seizure precautions ordered Keppra ordered 500mg IV BID initially, sent video to neurology given EEG reported normal this morning. Recs to increase to 1gm IV BID which has been done. Continued monitoring (2) Hyperglycemia: Plan: At baseline takes 70 units of 70/30 once daily (not ideal) w/ reported swings. Recent admission w/ glargine 12 u BID w/ SSI but no changes made at dc despite A1c 12.5 needing better control and patient denied reporting issues with more frequent administration in follow up discussions. BSG 400s on admission, continued despite IV fluid bolus 500cc NSS x 3 and insulin 10u x 2 Had been seen by EMS w/ syncope reports BSG in 30s, unresponsive (patient reports not remembering episode, had been shaking/jerking-- see seizure activity above, possible 2nd to hypoglycemic event and now on Keppra IV/ativan available) Pharmacy/DM educator consulted Was provided 12u glargine yesterday morning with additional 25u SQ in the afternoon. BSG initially elevated to 360 in evening but was tx to telemetry/POOR po intake reported/dehydration and IVF ordered overnight with continued SSI and BSG on POC most recently 145--> 86--> 120--> 156 AM w/ breakfast Discussed w/ pharmacy given #1 to prevent tight parameters and was given 30u glargine this morning (POC 223 w/ seizure activity above) and continues on sliding scale. Should have [place]o at tn/encourage use. Likely will plan on once daily insulin vs BID at discharge with mealtime insulin given patient agreeable but will continue to monitor sugars/needs while inpatient. Further adjustments to follow WILL ASK CM TO ARRANGE FOR ENDOCRINOLOGY FOLLOW UP AT [place] if on stable regimen but having significant issues with hypoglycemia could consider rare conditions like nesidioblastosis (3) Atrial flutter: Plan: Reported fall/tremors. EKG w/ Vpaced. TSH not elevated on check Pacemaker interrogation performed given reports of syncope and has pacemaker for hx heart block. -->Rep called to say has been in aflutter which she reports he is in most of the time and paces in ventricle 100% of the time. Tx to monitored bed ECHO noted moderate mitral regurgitation and aortic root dilatation (4.4cm) now seen compared to study in Feb 2021. LV systolic function normal. EF 55-60%. Flattened septum c/w RV pressure overload. RV moderately dilated but normal RV systolic function. Remains stable/paced/aflutter on telemetry Cards consulted and remains on metoprolol/xarelto, no adjustments needed Keep mag/K replete (4) Fall: Plan: Suspected on admission 2nd to hypoglycemia in the 30s. No alcohol use reported/d enied use. Patient does have 4 -/5 ship rigger strength, elbow flexion, elbow extension compared to robust 5/5 in the right. He thinks that this worsened after his fall several days ago and he has had some spasms. No spasms are noted and biceps reflexes 2+ without crossing joint line/spasticity. He is not sure if this preceded his fall or not, and does not think this was present when he had his fall last month and was seen with C-spine fractures. Given focal strength deficits and fall will obtain MRIbrain to R/oh CVA, and extend down to the C-spine due to trauma Has pacemaker, interrogation as above w/ underlying aflutter but on BB/xarelto and rates controlled CT head negative MRI brain negative, does have chronic microvascular changes MRI cervical spine neg for acute fracture/subluxation but does have spinal stenosis. ?Noting mild marrow edema Lumbar spine neg acute fx, noting stenosis PT/OT rec rehab, pt declined. Will need f/u discussions. (5) Factor V Leiden mutation: Plan: Anticoagulation continued with xarelto and has been continued (6) DM (diabetes mellitus), type 2, uncontrolled w/neurologic complication: Plan: A1c 12.5 Pharmacy consulted, see above. DM educator consulted while inpatient Planning for basal/bolus at dc as outlined under hyperglycemia and plan for endocrinology referral at tn (7) B12 deficiency: Plan: B12 low normal 203, IM replacement ordered while inpatient and will plan to continue PO at dc Plan Dispo: continued inpatient stay, Keppra IV/seizure precautions ordered and Neurology consulted Continue tx for DM/hyperglycemia Will need neurology as well as endocrinology f/u at [place], CM to assist in arranging PT/OT rec rehab, will need f/u discussions and encourage at least short term stay given issues with blood sugars to prevent issues at home as well as prevention of falls and continued monitoring/prevention of seizures. Admission and Anticipated Discharge Date Admission Date: January 16, 2024 Supervising Physician Co-Signing Physician Notes The patient was not seen by me. The chart was reviewed. Case discussed with TIAN Hernandez. Agree with assessment and plan Subjective EVal this morning. Witnessed seizure like activity with jerking of his left upper arm, lasting about 1-2 minutes. Did NOT loose consciousness. He reports he gets sensation of left sided face tightness/tingling prior to episodes. Has jelly on head but not performed EEG yet. He notes he can feel almost an aura of facial tightness on his left before they occur. Discussed possible seizure w/ low blood sugars however did not have BSG obtained (RN to check now). Discussed neurology consult, ativan to be available but to alert nursing if having sensation one coming on so that we can provide medications to prevent but could have some weakness on that side from a miguelina's paralysis. Telemetry w/ paced aflutter, reports seen by cardiology and nothing to change at this time/on the right beds. No fever/chills, chest pain, shortness of breath provided. After eval, then witnessed having seizure lasting about 1-2 minutes. POC Glu 223. RN to provide ativan. Physical Exam Physical Exam: General: 68yo obese male sitting up at the side of the bed, NAD but reported just had a seizure about an hour ago for 1-2 minutes (then proceeded to have another episode for less than 90 seconds of left sided myoclonic jerking with facial twitching but no urinary incontinence, did have some LUE ship rigger strength decreased following similar to exam yesterday but had been better prior to event) HEENT: head atraumatic, normocephalic, mm improved, trachea midline Resp: even/unlabored, no tachypnea, bibasilar crackles but no wheezing/rales, on room air 96% CV: RRR/slightly geno at times, ?faint systolic murmur, no significant LE edema, calves nontender/pulses present GI: +BS, soft/NT no lin MSK/Neuro: slight decreased ship rigger strength on the left compared to the right, pulses present able to raise bilateral arms above head, follow commands also has FAINT decreased PLANTARFLEXION on the left compared to the right but otherwise nonfocal (reports chronic low back pain) Psych: AOx3, cooperative with exam Results & Data Results & Data Vital Signs (Past 12 Hours) Vital Signs Temp Pulse Pulse Resp BP Pulse Ox O2 Del Method 01/18/24 07:31 CPAP 01/18/24 07:24 36.4 C L 59 L 18 112/73 98 Room Air 01/18/24 03:51 36.4 C L 60 16 149/80 H 98 Room Air 01/17/24 23:02 CPAP 01/17/24 22:49 66 19 96 01/17/24 22:36 36.7 C 60 18 112/65 96 Room Air 01/17/24 20:23 36.5 C 63 18 124/66 98 Room Air Laboratory Results 01/18/24 01/18/24 01/18/24 Range/Units 12:03 10:21 08:10 WBC (4.8-10.8) K/ul RBC (4.70-6.10) M/uL Hgb (14.0-18.0) g/dl Hct (42.0-52.0) % MCV (80.0-100.0) fL MCH (25.0-34.0) pg MCHC (32.0-36.0) g/dL RDW Std Deviation (36.4-46.3) fL RDW Coeff of Morena (11.5-14.5) % Plt Count (130-400) K/uL MPV (9.4-12.4) fL Immature Gran % (Auto) % Neut % (Auto) % Lymph % (Auto) % [place] % (Auto) % Eos % (Auto) % Baso % (Auto) % Neut # (Auto) (1.40-6.50) K/uL Lymph # (Auto) (1.20-3.40) K/uL [place] # (Auto) (0.11-0.59) K/uL Eos # (Auto) (0.00-0.50) K/uL Baso # (Auto) (0.00-0.20) K/uL Immature Gran # (Auto) (0.01-0.20) K/uL Sodium (136-145) mmol/L Potassium (3.5-5.1) mmol/L Chloride (98-107) mmol/L Carbon Dioxide (21-32) mmol/L Anion Gap (3-11) BUN (6-23) mg/dl Creatinine (0.6-1.4) mg/dl Est Cr Clr Drug Dosing ml/min eGFR BUN/Creatinine Ratio (10-20) Glucose (70-99(Fasting)) mg/dl POC Glucose 190 H 223 H 156 H (70-99) mg/dl Calcium (8.6-10.3) mg/dl Phosphorus (2.5-4.9) mg/dl Magnesium (1.7-2.4) mg/dl Ferritin (8-388) ng/ml Triglycerides (0-150) mg/dl Cholesterol (0-200) mg/dl LDL Cholesterol, Calc mg/dl VLDL Cholesterol, Calc (0-30) mg/dl HDL Cholesterol mg/dl Cholesterol/HDL Ratio (0-5) Vitamin B12 (180-914) pg/ml Folate (>5.38) ng/ml Prolactin ng/ml 01/18/24 01/18/24 01/18/24 Range/Units 07:44 03:54 01:07 WBC 7.38 (4.8-10.8) K/ul RBC 5.28 (4.70-6.10) M/uL Hgb 15.4 (14.0-18.0) g/dl Hct 46.6 (42.0-52.0) % MCV 88.3 (80.0-100.0) fL MCH 29.2 (25.0-34.0) pg MCHC 33.0 (32.0-36.0) g/dL RDW Std Deviation 42.1 (36.4-46.3) fL RDW Coeff of Morena 13.0 (11.5-14.5) % Plt Count 287 (130-400) K/uL MPV 10.9 (9.4-12.4) fL Immature Gran % (Auto) 0.5 % Neut % (Auto) 55.7 % Lymph % (Auto) 31.0 % [place] % (Auto) 7.2 % Eos % (Auto) 4.7 % Baso % (Auto) 0.9 % Neut # (Auto) 4.10 (1.40-6.50) K/uL Lymph # (Auto) 2.29 (1.20-3.40) K/uL [place] # (Auto) 0.53 (0.11-0.59) K/uL Eos # (Auto) 0.35 (0.00-0.50) K/uL Baso # (Auto) 0.07 (0.00-0.20) K/uL Immature Gran # (Auto) 0.04 (0.01-0.20) K/uL Sodium 137 (136-145) mmol/L Potassium 4.2 (3.5-5.1) mmol/L Chloride 101 (98-107) mmol/L Carbon Dioxide 30 (21-32) mmol/L Anion Gap 6 (3-11) BUN 22 (6-23) mg/dl Creatinine 0.79 (0.6-1.4) mg/dl Est Cr Clr Drug Dosing 117.4 ml/min eGFR 97.37 BUN/Creatinine Ratio 27.8 H (10-20) Glucose 172 H (70-99(Fasting)) mg/dl POC Glucose 120 H 86 (70-99) mg/dl Calcium 9.2 (8.6-10.3) mg/dl Phosphorus 3.6 (2.5-4.9) mg/dl Magnesium 2.2 (1.7-2.4) mg/dl Ferritin 576.5 H (8-388) ng/ml Triglycerides 85 (0-150) mg/dl Cholesterol 157 (0-200) mg/dl LDL Cholesterol, Calc 83 mg/dl VLDL Cholesterol, Calc 17 (0-30) mg/dl HDL Cholesterol 57 mg/dl Cholesterol/HDL Ratio 2.8 (0-5) Vitamin B12 (180-914) pg/ml Folate 7.01 (>5.38) ng/ml Prolactin 8.38 ng/ml 01/17/24 01/17/24 01/17/24 Range/Units 20:25 16:59 16:58 WBC (4.8-10.8) K/ul RBC (4.70-6.10) M/uL Hgb (14.0-18.0) g/dl Hct (42.0-52.0) % MCV (80.0-100.0) fL MCH (25.0-34.0) pg MCHC (32.0-36.0) g/dL RDW Std Deviation (36.4-46.3) fL RDW Coeff of Morena (11.5-14.5) % Plt Count (130-400) K/uL MPV (9.4-12.4) fL Immature Gran % (Auto) % Neut % (Auto) % Lymph % (Auto) % [place] % (Auto) % Eos % (Auto) % Baso % (Auto) % Neut # (Auto) (1.40-6.50) K/uL Lymph # (Auto) (1.20-3.40) K/uL [place] # (Auto) (0.11-0.59) K/uL Eos # (Auto) (0.00-0.50) K/uL Baso # (Auto) (0.00-0.20) K/uL Immature Gran # (Auto) (0.01-0.20) K/uL Sodium (136-145) mmol/L Potassium (3.5-5.1) mmol/L Chloride (98-107) mmol/L Carbon Dioxide (21-32) mmol/L Anion Gap (3-11) BUN (6-23) mg/dl Creatinine (0.6-1.4) mg/dl Est Cr Clr Drug Dosing ml/min eGFR BUN/Creatinine Ratio (10-20) Glucose (70-99(Fasting)) mg/dl POC Glucose 145 H 360 H* 333 H* (70-99) mg/dl Calcium (8.6-10.3) mg/dl Phosphorus (2.5-4.9) mg/dl Magnesium (1.7-2.4) mg/dl Ferritin (8-388) ng/ml Triglycerides (0-150) mg/dl Cholesterol (0-200) mg/dl LDL Cholesterol, Calc mg/dl VLDL Cholesterol, Calc (0-30) mg/dl HDL Cholesterol mg/dl Cholesterol/HDL Ratio (0-5) Vitamin B12 (180-914) pg/ml Folate (>5.38) ng/ml Prolactin ng/ml 01/17/24 Range/Units 09:43 WBC (4.8-10.8) K/ul RBC (4.70-6.10) M/uL Hgb (14.0-18.0) g/dl Hct (42.0-52.0) % MCV (80.0-100.0) fL MCH (25.0-34.0) pg MCHC (32.0-36.0) g/dL RDW Std Deviation (36.4-46.3) fL RDW Coeff of Morena (11.5-14.5) % Plt Count (130-400) K/uL MPV (9.4-12.4) fL Immature Gran % (Auto) % Neut % (Auto) % Lymph % (Auto) % [place] % (Auto) % Eos % (Auto) % Baso % (Auto) % Neut # (Auto) (1.40-6.50) K/uL Lymph # (Auto) (1.20-3.40) K/uL [place] # (Auto) (0.11-0.59) K/uL Eos # (Auto) (0.00-0.50) K/uL Baso # (Auto) (0.00-0.20) K/uL Immature Gran # (Auto) (0.01-0.20) K/uL Sodium (136-145) mmol/L Potassium (3.5-5.1) mmol/L Chloride (98-107) mmol/L Carbon Dioxide (21-32) mmol/L Anion Gap (3-11) BUN (6-23) mg/dl Creatinine (0.6-1.4) mg/dl Est Cr Clr Drug Dosing ml/min eGFR BUN/Creatinine Ratio (10-20) Glucose (70-99(Fasting)) mg/dl POC Glucose (70-99) mg/dl Calcium (8.6-10.3) mg/dl Phosphorus (2.5-4.9) mg/dl Magnesium (1.7-2.4) mg/dl Ferritin (8-388) ng/ml Triglycerides (0-150) mg/dl Cholesterol (0-200) mg/dl LDL Cholesterol, Calc mg/dl VLDL Cholesterol, Calc (0-30) mg/dl HDL Cholesterol mg/dl Cholesterol/HDL Ratio (0-5) Vitamin B12 203 (180-914) pg/ml Folate (>5.38) ng/ml Prolactin ng/ml Diagnostic Findings Cervical Spine MRI 01/17/24 00:00 MR cervical spine wo con HISTORY: 68 years-old Male LUE weakness Acute neck pain with left upper ext remity weakness. COMPARISON: Brain MRI of same day, CT thoracic and cervical spine 12/30/2023. TECHNIQUE: Multiplanar multisequence MRI of the cervical spine was obtained without IV contrast. FINDINGS: Study is motion degraded. The imaged posterior fossa structures are unremarkable. Mild to moderate marrow edema noted at C5-C6 which is likely degenerative. There is additional mild to moderate marrow edema involving the superior endplate of T2 with unchanged vertebral body heights compared to the prior CT. Trace prevertebral edema of the mid cervical spine is likely degenerative. No definite acute fracture, subluxation or marrow replacing process. No epidural fluid collections. C2-C3: Mild intervertebral disc space narrowing and uncovertebral hypertrophy with small posterior disc osteophyte complex. Mild to moderate facet arthrosis. Central canal is generally patent. Minimal bilateral foraminal narrowing. C3-C4: Mild to moderate intervertebral disc space narrowing with posterior annular disc bulge/disc osteophyte complex which is eccentric to the left lateral recess and left neural foramen. Mild facet arthrosis. Minimal central canal stenosis with AP dimension of the thecal sac measuring 9 mm. Severe left with moderate right foraminal narrowing. C4-C5: Severe intervertebral disc space narrowing with degenerative partial bony fusion. Circumferential disc osteophyte complex is largest centrally with moderate facet arthrosis. AP dimension of the thecal sac is 6 mm. Moderate central canal stenosis. Moderate to severe left with severe right foraminal narrowing. C5-C6: Moderate intervertebral disc space narrowing with circumferential disc osteophyte complex and moderate facet arthrosis. AP dimension of the thecal sac is 6 mm. Moderate central canal stenosis. Severe bilateral foraminal narrowing. C6-C7: Moderate intervertebral disc space narrowing. Circumferential disc osteophyte complex with left paracentral disc protrusion. Moderate facet arthrosis. AP dimension of the thecal sac is 6 mm. Moderate central canal stenosis. Moderate to severe bilateral foraminal stenosis. C7-T1: Mild to moderate intervertebral disc space narrowing with moderate facet arthrosis. Patent central canal. Mild bilateral foraminal narrowing. IMPRESSION: 1. Discogenic degeneration with spondylotic spurring and facet arthrosis as above resulting in multilevel central canal and neural foraminal narrowing. 2. Areas of scattered marrow edema, likely degenerative. 3. Normal signal of the cervical spinal cord. ACT 112: Negative or not required by law. The above report was generated using voice recognition software. It may contain grammatical, syntax or spelling errors. Dictated: 01/17/2024 2:39 PM Transcribed: 01/17/2024 3:01 PM Celia [id number] VINEET_Rogerio [id number] Electronically signed by: Jim Richards M.D. 01/17/2024 3:08 PM PG Care Time/CCT Total # of Minutes Spent Total Time Spent with Patient: Total time spent is greater than 50% in coordination of care (as documented) at patient's floor/unit and/or counseling patient: Coding Level of Care Code 51115 SUB INP/OBS CARE 3/50MIN Diagnoses Seizure-like activity R56.9 Hyperglycemia R73.9 Atrial flutter I48.92 Fall W19.XXXA Factor V Leiden mutation D68.51 DM (diabetes mellitus), type 2, uncontrolled w/neurologic complication E11.49; E11.65 B12 deficiency E53.8
[2024-01-18 08:04] LABS: Basophils # (auto) 0.07 K/uL (0.00-0.20); Basophils % (auto) 0.9 %; Eosinophils # (auto) 0.35 K/uL (0.00-0.50); Eosinophils % (auto) 4.7 %; Hematocrit (blood only) 46.6 % (42.0-52.0); Hemoglobin 15.4 g/dl (14.0-18.0); Immature Granulocytes # (auto) 0.04 K/uL (0.01-0.20); Immature Granulocytes % (auto) 0.5 %; Lymphocytes # (auto) 2.29 K/uL (1.20-3.40); Mean Corpuscular Hemoglobin 29.2 pg (25.0-34.0); Mean Corpuscular Volume 88.3 fL (80.0-100.0); Mean Platelet Volume 10.9 fL (9.4-12.4); Monocytes # (auto) 0.53 K/uL (0.11-0.59); Monocytes % (auto) 7.2 %; Neutrophils % (auto) 55.7 %; Platelet Count 287 K/uL (130-400); RDW Standard Deviation 42.1 fL (36.4-46.3); Red Blood Count 5.28 M/uL (4.70-6.10); White Blood Count 7.38 K/ul (4.8-10.8)
[2024-01-18 08:21] LABS: BUN Creatinine Ratio 27.8 (10-20); Calcium 9.2 mg/dl (8.6-10.3); Chol HDL Ratio 2.8 (0-5); Creatinine Clr Calc Pharmacy 117.4 ml/min; Magnesium 2.2 mg/dl (1.7-2.4); Phosphorus 3.6 mg/dl (2.5-4.9); Potassium 4.2 mmol/L (3.5-5.1)
[2024-01-18 08:40] LABS: Ferritin 576.5 ng/ml (8-388)
[2024-01-18] MEDS: LANTUS PER UNIT CHARGE SQ SCH (09:07)
--- NOTE | 2024-01-18 09:22 | Pharmacy Report ---
Pharmacy Glycemic Short Note 2 - Date of Service January 18, 2024 - Glycemic Short BSG Results (Last 24 hours): 01/17/24 01/17/24 01/17/24 12:06 12:07 14:36 Glucose POC Glucose 331 H* 385 H* 274 H 01/17/24 01/17/24 01/17/24 16:58 16:59 20:25 Glucose POC Glucose 333 H* 360 H* 145 H 01/18/24 01/18/24 01/18/24 01:07 03:54 07:44 Glucose 172 H POC Glucose 86 120 H 01/18/24 08:10 Glucose POC Glucose 156 H OUTPATIENT ANTIDIABETIC REGIMEN: * Novolin 70/30 - 70 units once daily at lunch time / per provider notes ASSESSMENT: 01/17 * Patient received total of 89 units of insulin yesterday, of which 37 units were basal insulin * Fasting BSG improving, 156 mg/dL - will scale back to Lantus 30 units daily * No change to CF/CR 01/16 * 68 year old admitted with hyperglycemia, weakness. Received multiple IV insulin boluses last evening and started on insulin regimen similar to last admission. BSG 385 mg/dL at time of consult - will give 5 units iv x1 now and tighten novolog to weight based stress 3 dosing (based upon adj bw). Received 12 units of basal insulin this AM, will double dose and give 25 units x 1 now to target daily basal insulin dose closer to ~40 units. PLAN FOR INPATIENT GLYCEMIC CONTROL: * Hold outpatient oral diabetes medications * Basal insulin * Lantus 30 units daily * Bolus insulin * NovoLog per scale ACHS or Q6hrs while NPO * Goal Range: Low 110 mg/dL - High 140 mg/dL * Correction Factor: 20 mg/dL/unit * Nutritional / Prandial insulin per carb ratio of 1 unit per 6 grams CHO consumed
[2024-01-18] MEDS: FUROSEMIDE 80 MG TAB PO SCH (09:37)
--- NOTE | 2024-01-18 10:03 | Electroencephalogram ---
EEG Procedure Note Date of Service January 18, 2024 Start / End Times Start Time: 604 End Time: 624 Referring Physician gisel russ History tremor Home Medication List Medication Instructions Recorded Confirmed Type acetaminophen 325 mg tablet 650 mg (2 x 325 mg) PO Q6H PRN 02/18/21 01/16/24 Rx pain #30 tabs rivaroxaban 20 mg tablet (Xarelto) 20 mg PO DAILY #90 tabs 03/24/21 01/16/24 Rx ergocalciferol (vitamin D2) 1,250 50,000 unit PO Q7D@0900 #14 caps 06/21/21 01/16/24 Rx mcg (50,000 unit) capsule blood-glucose meter (Accu-Chek #1 ea 04/27/22 04/21/23 Rx Guide Me Glucose Meter) lancets 30 gauge (OneTouch Delica #25 ea 04/27/22 04/21/23 Rx Lancets) blood sugar diagnostic (OneTouch #300 ea 02/23/23 04/21/23 Rx Ultra Test strips) furosemide 80 mg tablet 80 mg PO QAM #90 tabs 06/09/23 01/16/24 Rx lancets (Accu-Chek Softclix #300 ea 06/09/23 Rx Lancets) lisinopril 10 mg tablet 10 mg PO QAM #90 tabs 06/09/23 01/16/24 Rx metformin 1,000 mg tablet 1,000 mg PO BID #180 tabs 06/09/23 01/16/24 Rx insulin syringe-needle U-100 1 mL #300 ea 08/21/23 Rx 31 gauge x 5/16" (BD Insulin Syringe Ultra-Fine) gabapentin 300 mg capsule 300 mg PO DAILY #30 caps 09/13/23 01/16/24 Rx insulin human U-100 NPH-regulr 20 - 50 unit (0.2 - 0.5 mL) subcut 10/31/23 01/16/24 Rx 70-30 mix 100 unit/mL subcutaneous TID #30 mL susp (Novolin 70/30 U-100 Insulin) cephalexin 500 mg capsule 500 mg PO TID prophylactic for 01/02/24 01/16/24 Rx lower ext cellulitis #30 caps atorvastatin 20 mg tablet 20 mg PO UD 01/16/24 01/16/24 History ketoconazole 2 % topical cream 1 applic topical UD 01/16/24 01/16/24 History metoprolol tartrate 50 mg tablet 50 mg PO UD 01/16/24 01/16/24 History sildenafil 100 mg tablet 100 mg PO UD 01/16/24 01/16/24 History Inpatient Medication List Atorvastatin Calcium (Atorvastatin 20 Mg Tab) 20 mg PO [facility] Stop: 02/15/24 21:17 Last Admin: 01/17/24 20:35 Dose: 20 mg Documented By: [id number] Admin: 01/16/24 22:08 Dose: 20 mg Documented By: KENNETH Cephalexin HCl (Cephalexin 500 Mg Cap) 500 mg PO TID [facility]; Protocol Stop: 02/15/24 21:17 Last Admin: 01/18/24 08:39 Dose: 500 mg Documented By: Admin: 01/17/24 20:35 Dose: 500 mg Documented By: [id number] Admin: 01/17/24 15:29 Dose: 500 mg Documented By: Admin: 01/17/24 08:31 Dose: 500 mg Documented By: Admin: 01/16/24 22:08 Dose: 500 mg Documented By: KENNETH Cyanocobalamin (Cyanocobalamin 1000 Mcg/Ml Vial) 1,000 mcg IM [facility] Stop: 01/19/24 09:01 Last Admin: 01/17/24 17:59 Dose: 1,000 mcg Documented By: VICTORINA Furosemide (F[facility]semide 80 Mg Tab) [facility] [place]: 02/17/24 08:59 Last Admin: 01/18/24 09:37 Dose: 80 mg Documented By: NATHANIEL Gabapentin (Gabapentin 300 Mg Cap) 300 mg PO DAILY [facility] Stop: 02/16/24 08:59 Last Admin: 01/18/24 08:38 Dose: 300 mg Documented By: Admin: 01/17/24 08:32 Dose: 300 mg Documented By: CASSY Insulin Aspart (Insulin Aspart Per Unit Charge) 0 units SC ACHS [facility] Stop: 02/15/24 20:59 Last Admin: 01/18/24 09:00 Dose: 9 units Documented By: NATHANIEL Co-signed By: SIMONE Admin: 01/17/24 20:39 Dose: 5 units Documented By: [id number] Co-signed By: BERTHA Admin: 01/17/24 18:01 Dose: 22 units Documented By: VICTORINA Co-signed By: VERNELL Admin: 01/17/24 15:16 Dose: 14 units Documented By: VICTORINA Co-signed By: VERNELL Admin: 01/17/24 08:28 Dose: 11 units Documented By: CASSY Co-signed By: VALENTIN Admin: 01/16/24 22:07 Dose: 2 units Documented By: KENNETH Co-signed By: CASIE Insulin Glargine (Lantus Per Unit Charge) 30 units SQ DAILY [facility] Stop: 02/17/24 08:59 Last Admin: 01/18/24 09:07 Dose: 30 units Documented By: NATHANIEL Co-signed By: JANNIE Metoprolol Tartrate (Metoprolol Tartrate 50 Mg Tab) 50 mg PO BID [facility] Stop: 02/15/24 21:17 Last Admin: 01/18/24 08:38 Dose: Not Given Documented By: Admin: 01/17/24 20:35 Dose: 50 mg Documented By: [id number] Admin: 01/17/24 09:04 Dose: 50 mg Documented By: Admin: 01/16/24 22:09 Dose: 50 mg Documented By: KENNETH Oxycodone/Acetaminophen (Oxycodone/Acetaminophen 10-325 Tab) 1 tab PO Q8H PRN PRN Reason: Pain Stop: 01/31/24 08:03 Last Admin: 01/18/24 09:09 Dose: 1 tab Documented By: Admin: 01/17/24 19:51 Dose: 1 tab Documented By: [id number] Rivaroxaban (Rivaroxaban 20 Mg Tab) 20 mg PO DAILY [facility] Stop: 02/16/24 08:59 Last Admin: 01/18/24 08:38 Dose: 20 mg Documented By: Admin: 01/17/24 08:31 Dose: 20 mg Documented By: CASSY Thiamine HCl (Thiamine Hcl 100 Mg Tab) 200 mg PO BID [facility] Stop: 02/16/24 08:59 Last Admin: 01/17/24 20:35 Dose: 200 mg Documented By: [id number] Admin: 01/17/24 09:07 Dose: 200 mg Documented By: CASSY Discontinued Medications Sodium Chloride (Nss) 500 mls @ 999 mls/hr IV .Q31M ONE Stop: 01/16/24 15:04 Last Infusion: 01/16/24 16:00 Dose: Infused Documented By: Admin: 01/16/24 14:51 Dose: 999 mls/hr Documented By: RUBI Sodium Chloride (Nss) 500 mls @ 999 mls/hr IV .Q31M ONE Stop: 01/16/24 16:53 Last Infusion: 01/16/24 18:00 Dose: Infused Documented By: Admin: 01/16/24 17:16 Dose: 999 mls/hr Documented By: TANNER Sodium Chloride (Nss) 500 mls @ 999 mls/hr IV .Q31M ONE Stop: 01/16/24 19:07 Last Infusion: 01/16/24 20:00 Dose: Infused Documented By: Admin: 01/16/24 19:02 Dose: 999 mls/hr Documented By: TANNER Sodium Chloride (Nss) 1,000 mls @ 80 mls/hr IV .[id number] [facility] Stop: 01/18/24 03:44 Last Infusion: 01/18/24 05:23 Dose: Infused Documented By: [id number] Admin: 01/17/24 15:15 Dose: 80 mls/hr Documented By: VICTORINA Insulin Aspart (Insulin Aspart Per Unit Charge) 0 units SC 0000,0400 [facility] Stop: 02/17/24 00:00 Last Admin: 01/18/24 05:20 Dose: Not Given Documented By: [id number] Admin: 01/18/24 02:20 Dose: Not Given Documented By: [id number] Insulin Glargine (Lantus Per Unit Charge) 12 units SQ BID [facility] Stop: 02/15/24 20:59 Last Admin: 01/17/24 08:29 Dose: 12 units Documented By: CASSY Co-signed By: VALENTIN Admin: 01/16/24 22:07 Dose: 12 units Documented By: KENNETH Co-signed By: CASIE Insulin Glargine (Lantus Per Unit Charge) 25 units SQ ONE ONE Stop: 01/17/24 15:31 Last Admin: 01/17/24 15:37 Dose: Not Given Documented By: VICTORINA Insulin Human Regular (Novolin-R Insulin Per Unit Charge) 10 units IV NOW STA Stop: 01/16/24 15:25 Last Admin: 01/16/24 16:10 Dose: 10 units Documented By: TANNER Co-signed By: ANA LAURA Insulin Human Regular (Novolin-R Insulin Per Unit Charge) 10 units IV NOW STA Stop: 01/16/24 18:38 Last Admin: 01/16/24 19:01 Dose: 10 units Documented By: TANNER Co-signed By: BK Description This is a 21 electrode EEG with a single channel dedicated to limited EKG. The electrodes were placed in accordance with the International 10-20 system. Interpretation This is a 21 electrode EEG with a single channel dedicated to limited EKG. The electrodes were placed in accordance with the International 10-20 system. There is a posterior dominant rhythm of 6-7 Hz which is symmetrically distributed and attenuates with eye opening. There is a normal anterior to posterior organization. Photic stimulation: unremarkable Hyperventilation performed: ___ unremarkable; _x_ not performed. There is no focal slowing. No epileptiform abnormalities. Sleep stage: __ not achieved, __x_drowsy state, ___ Stage II, ___ REM stage achieved. Interpretation Normal-appearing awake/drowsy EEG. A normal EEG does not completely exclude a diagnosis of epilepsy. [facility] EEG Procedure Codes Indication for Procedure (1) Hyperglycemia: Neurology Neurology: 88411 EEG include record awake & drowsy
[2024-01-18] MEDS: LORazepam 2 MG/1 ML VIAL IV PRN (10:24)
--- NOTE | 2024-01-18 10:38 | Neurology Consultation ---
Date of Consultation January 18, 2024 Assessment & Plan (1) Seizure-like activity: History of Present Illness Attending Physician: Pablo Carbajal MD History of Present Illness 68 yo male with uncontrolled DM with hypoglycemic and hyperglycemic events. pt this morning had seizure event with posturing and shaking. currently alert and back to baseline. chart reviewed. admission HPI: Waylon nixon 68yo M witha hx a T2DM presents with syncope, 1 episode of hypoglycemia 2 days ago, and now w. hyperglycemia, and fatigue. Recieved IV insulin 10u x2 in the ER + 1500cc NSS but remains hyperglycemic. R ecommended for admission for syncope and BSG monitoring. Reports had a fall 2 days ago and having muscle cramps/spasms. No focal neurologic deficits. Patient also concerned for hypoglycemic to hyperglycemic swings and recommend for overnight monitoring and glycemic management. Waylon is seen at the bedside - REports frequent lows. Blood sugar dropped to 30 ~2 days ago. Was confused, shakey and got glucose from the paramedics and seemed to do OK after. Ate some peanut butter toast after to get sugar back up. REports low BSG is rare, less than once a month for him - Today reports he feels very shakey and his blood sugar has been high. Shakes are gone in the ER, but was worried he might have had an issue from the fall since his arm was termoring this morning. No sensation change. Does feel he has a significatn loss of strength in his left arm which is persistent. - Reports low blood sugars are rare for him - Takes 70/30 insulin 70units once daily. Takes this before lunch. Does not like to split his insulin up. Blood sugar usually 160s-180s. SOmetimes high ~300s. Usually has a 'a couple' highs per week no chest pain or chest pressure. No sweating. No lightheadedness of dizziness. Does get sweats with low sugars, but none currently. No recent illnesses. No fevers or chills. No abdominal pain. No headache No vision change Allergies Allergy/AdvReac Type Severity Reaction Status Date / Time ceftriaxone Allergy Severe Hives Verified 05/19/23 15:24 Sulfa (Sulfonamide Allergy Intermediate HIVES-ITCHY Verified 05/19/23 15:24 Antibiotics) RASH Home Medications Medication Instructions Recorded Confirmed Type acetaminophen 325 mg tablet 650 mg (2 x 325 mg) PO Q6H PRN 02/18/21 01/16/24 Rx pain #30 tabs rivaroxaban 20 mg tablet (Xarelto) 20 mg PO DAILY #90 tabs 03/24/21 01/16/24 Rx ergocalciferol (vitamin D2) 1,250 50,000 unit PO Q7D@0900 #14 caps 06/21/21 01/16/24 Rx mcg (50,000 unit) capsule blood-glucose meter (Accu-Chek #1 ea 04/27/22 04/21/23 Rx Guide Me Glucose Meter) lancets 30 gauge (OneTouch Delica #25 ea 04/27/22 04/21/23 Rx Lancets) blood sugar diagnostic (OneTouch #300 ea 02/23/23 04/21/23 Rx Ultra Test strips) furosemide 80 mg tablet 80 mg PO QAM #90 tabs 06/09/23 01/16/24 Rx lancets (Accu-Chek Softclix #300 ea 06/09/23 Rx Lancets) lisinopril 10 mg tablet 10 mg PO QAM #90 tabs 06/09/23 01/16/24 Rx metformin 1,000 mg tablet 1,000 mg PO BID #180 tabs 06/09/23 01/16/24 Rx insulin syringe-needle U-100 1 mL #300 ea 08/21/23 Rx 31 gauge x 5/16" (BD Insulin Syringe Ultra-Fine) gabapentin 300 mg capsule 300 mg PO DAILY #30 caps 09/13/23 01/16/24 Rx insulin human U-100 NPH-regulr 20 - 50 unit (0.2 - 0.5 mL) subcut 10/31/23 01/16/24 Rx 70-30 mix 100 unit/mL subcutaneous TID #30 mL susp (Novolin 70/30 U-100 Insulin) cephalexin 500 mg capsule 500 mg PO TID prophylactic for 01/02/24 01/16/24 Rx lower ext cellulitis #30 caps atorvastatin 20 mg tablet 20 mg PO UD 01/16/24 01/16/24 History ketoconazole 2 % topical cream 1 applic topical UD 01/16/24 01/16/24 History metoprolol tartrate 50 mg tablet 50 mg PO UD 01/16/24 01/16/24 History sildenafil 100 mg tablet 100 mg PO UD 01/16/24 01/16/24 History Patient History Medical History Hives Supratherapeutic INR On anticoagulant therapy warfarin daily Bradycardia Hyperglobulinemia DVT, lower extremity ? pt denies Surgical History Status post appendectomy History of colonoscopy History of wisdom tooth extraction History of tooth extraction S/P tonsillectomy Family History Father Coronary heart disease Myocardial infarction Mother COPD (chronic obstructive pulmonary disease) Stroke Family history of diabetes mellitus Diabetes Brother Prostate cancer Coronary heart disease Grandfather (Paternal) Family history of diabetes mellitus Grandmother (Paternal) Family history of diabetes mellitus Other No family history of adverse response to anesthesia Denies family history of Ovarian cancer Breast cancer Colorectal cancer Social History Smoking Status: Never smoker Tobacco Type: Smokeless Tobacco (Dip or Chew) Second Hand Exposure: No; Do You Dip or Chew Tobacco: Yes; Tobacco Cessation Education Requested by Patient: No Hx Alcohol Use: No Hx Substance Use: No Preferred Language: Albanian Communication Ability: Effective Visual Impairment: Limited Hearing Ability: Normal Chicken Stuffer Required: No Beliefs That Will Affect Care: None marital status: Life Partner Current Living Situation: Significant Other Current Living Situation Comment: Lives with sister current occupational status: retired and disabled current occupation: [employer] Other Information That Helps Us Care for You: No Feels Safe at Home: Yes Safety Concerns: Feels Safe At This Time Childhood Exposure to Second-Hand Smoke: No Diet: diabetic caffeine: Yes Dental Care, Regularly: No Physical Activity Frequency: Does not Exercise Seatbelt Use: always Assistive Devices: Walker Exam (Neuro) Physical Exam: HEENT: normocephalic grossly Neuro: Mental: AOx4, fluent speech, normal comprehension, no apraxia, no L/R confusion, no neglect CN: PERRL, Full EOM, symmetric face, midline T/U/P, Motor: No abnormal movements, moving all limbs b/l grossly. Coord: intact Impression: 68 yo male with seizure event in setting of uncontrolled DM with severe Hypo/hyperglycemic events. pt likely had seizure from metabolic disorder. EEG this morning normal. No focal deficits. Recommendations: increase keppra to 1000mg po bid seizure precaution. close monitoring for metabolic disorders and infection and strict DM control. call again if new question. Chart reviewed I have spent more than 50% educating patient about potential diagnosis and neurological evaluation and coordinating care with patient's treatment team. Total time spent (including chart review and coordination of care): 35 min (this includes chart review). Results & Data Vital Signs (Past 12 Hours) Vital Signs Temp Pulse Pulse Resp BP Pulse Ox O2 Del Method 01/18/24 07:31 CPAP 01/18/24 07:24 36.4 C L 59 L 18 112/73 98 Room Air 01/18/24 03:51 36.4 C L 60 16 149/80 H 98 Room Air 01/17/24 23:02 CPAP 01/17/24 22:49 66 19 96 01/17/24 22:36 36.7 C 60 18 112/65 96 Room Air PG Care Time/CCT Total # of Minutes Spent Total Time Spent with Patient: Total time spent is greater than 50% in coordination of care (as documented) at patient's floor/unit and/or counseling patient: Coding Level of Care Code 48729 IN/OBS CONSULT LVL 2,35M Diagnoses Seizure-like activity R56.9
--- NOTE | 2024-01-18 11:06 | Cardiology Consultation ---
Date of Consultation January 18, 2024 Assessment & Plan (1) Status post placement of cardiac pacemaker: Dual-chamber pacemaker which appears to be functioning VVI mode, no indication of inappropriate atrial sensing, good rate control on metoprolol, no evidence of dysfunction. (2) Fall: Etiology unclear, hemodynamics by EMS and subsequently fairly unremarkable. Will check orthostatics at some point, but he is not having routine lightheadedness. Consider allowing some degree of permissive hypertension, continue metoprolol for rate control, off lisinopril and perhaps could remain off this. (3) Syncope: His syncopal episode was 3 days prior to admission and appeared related to hypoglycemia. (4) Atrial flutter: Appears chronic. Seen on December 2023 ECG as well. Ventricular rate is controlled (paced) and he is anticoagulated on rivaroxaban. (5) Seizure-like activity: Focal, noncardiac. Neurology evaluation underway. Plan Pacemaker function appropriate, hemodynamics are favorable, no ongoing symptoms. No specific cardiac recommendations beyond checking orthostatics and adjusting his vasoactive regimen. Will sign off, please contact if change in clinical status or additional questions. History of Present Illness Reason for Consultation: syncope, aflutter on pacer interrogation, tremors Requesting Physician: Pablo Carbajal MD Attending Physician: Pablo Carbajal MD History of Present Illness 68-year-old man with history diabetes mellitus (on insulin, recurrent hypoglycemia), factor V Leiden, alcohol misuse, and dual-chamber pacemaker placement for complete heart block 2021 (transient atrial tachydysrhythmia postop felt to be atrial tachycardia or pacemaker mediated tachycardia), who was admitted 01/16/2024 after a fall without loss of consciousness who was noted to have atrial flutter on pacer interrogation and tremulousness of the left arm. Multiple vascular risk factors (age, gender, dyslipidemia, hypertension, diabetes, obesity) but no documented vascular or coronary disease. He had a serious fall in December with vertebral fractures which occurred in the setting of alcohol intoxication. He also noted a syncopal episode occurring in the context of hypoglycemia (glucose in the 30s) about 3 days prior to admission. His most recent fall occurred in the presence of EMS, hemodynamics at that time showed BP 160/88 mmHg with pulse of 63 and respirations 16. Results of pacemaker interrogation not immediately available, will review. Serial ECGs show underlying low voltage atrial flutter with ventricular pacing at 60 bpm. Troponin was 18. Echocardiogram was technically difficult but showed EF 55 to 60% with no wall motion abnormalities, there was evidence of RV pressure/volume overload, moderate mitral regurgitation, and moderate aortic root dilatation (4.4 cm). At the time of my evaluation this morning, patient denied any complaints aside from intermittent left arm uncontrollable tremulousness (not present at the time of my exam). Neurologic evaluation for this is underway. He denied chest pain, dyspnea, or subjective palpitations at any time. He denied any orthostatic lightheadedness or any presyncope subsequent to his admitting event. Telemetry showed consistent ventricular pacing at 60 bpm with underlying rhythm of atrial flutter. Allergies Allergy/AdvReac Type Severity Reaction Status Date / Time ceftriaxone Allergy Severe Hives Verified 05/19/23 15:24 Sulfa (Sulfonamide Allergy Intermediate HIVES-ITCHY Verified 05/19/23 15:24 Antibiotics) RASH Home Medications Medication Instructions Recorded Confirmed Type acetaminophen 325 mg tablet 650 mg (2 x 325 mg) PO Q6H PRN 02/18/21 01/16/24 Rx pain #30 tabs rivaroxaban 20 mg tablet (Xarelto) 20 mg PO DAILY #90 tabs 03/24/21 01/16/24 Rx ergocalciferol (vitamin D2) 1,250 50,000 unit PO Q7D@0900 #14 caps 06/21/21 01/16/24 Rx mcg (50,000 unit) capsule blood-glucose meter (Accu-Chek #1 ea 04/27/22 04/21/23 Rx Guide Me Glucose Meter) lancets 30 gauge (OneTouch Delica #25 ea 04/27/22 04/21/23 Rx Lancets) blood sugar diagnostic (OneTouch #300 ea 02/23/23 04/21/23 Rx Ultra Test strips) furosemide 80 mg tablet 80 mg PO QAM #90 tabs 06/09/23 01/16/24 Rx lancets (Accu-Chek Softclix #300 ea 06/09/23 Rx Lancets) lisinopril 10 mg tablet 10 mg PO QAM #90 tabs 06/09/23 01/16/24 Rx metformin 1,000 mg tablet 1,000 mg PO BID #180 tabs 06/09/23 01/16/24 Rx insulin syringe-needle U-100 1 mL #300 ea 08/21/23 Rx 31 gauge x 5/16" (BD Insulin Syringe Ultra-Fine) gabapentin 300 mg capsule 300 mg PO DAILY #30 caps 09/13/23 01/16/24 Rx insulin human U-100 NPH-regulr 20 - 50 unit (0.2 - 0.5 mL) subcut 10/31/23 01/16/24 Rx 70-30 mix 100 unit/mL subcutaneous TID #30 mL susp (Novolin 70/30 U-100 Insulin) cephalexin 500 mg capsule 500 mg PO TID prophylactic for 01/02/24 01/16/24 Rx lower ext cellulitis #30 caps atorvastatin 20 mg tablet 20 mg PO UD 01/16/24 01/16/24 History ketoconazole 2 % topical cream 1 applic topical UD 01/16/24 01/16/24 History metoprolol tartrate 50 mg tablet 50 mg PO UD 01/16/24 01/16/24 History sildenafil 100 mg tablet 100 mg PO UD 01/16/24 01/16/24 History Patient History Medical History Hives Supratherapeutic INR On anticoagulant therapy warfarin daily Bradycardia Hyperglobulinemia DVT, lower extremity ? pt denies Surgical History Status post appendectomy History of colonoscopy History of wisdom tooth extraction History of tooth extraction S/P tonsillectomy Family History Father Coronary heart disease Myocardial infarction Mother COPD (chronic obstructive pulmonary disease) Stroke Family history of diabetes mellitus Diabetes Brother Prostate cancer Coronary heart disease Grandfather (Paternal) Family history of diabetes mellitus Grandmother (Paternal) Family history of diabetes mellitus Other No family history of adverse response to anesthesia Denies family history of Ovarian cancer Breast cancer Colorectal cancer Social History Smoking Status: Never smoker Tobacco Type: Smokeless Tobacco (Dip or Chew) Second Hand Exposure: No; Do You Dip or Chew Tobacco: Yes; Tobacco Cessation Education Requested by Patient: No Hx Alcohol Use: No Hx Substance Use: No Preferred Language: Latvian Communication Ability: Effective Visual Impairment: Limited Hearing Ability: Normal Mail Machine Operator Required: No Beliefs That Will Affect Care: None marital status: Life Partner Current Living Situation: Significant Other Current Living Situation Comment: Lives with sister current occupational status: retired and disabled current occupation: [employer] Other Information That Helps Us Care for You: No Feels Safe at Home: Yes Safety Concerns: Feels Safe At This Time Childhood Exposure to Second-Hand Smoke: No Diet: diabetic caffeine: Yes Dental Care, Regularly: No Physical Activity Frequency: Does not Exercise Seatbelt Use: always Assistive Devices: Walker Physical Exam Physical Exam: Adult white male in no distress. Afebrile. BP normotensive. Pulse 60 bpm and regular. Respirations 18 unlabored. Skin: no ecchymoses or generalized lesions. HEENT: unremarkable. Neck: JVP does not appear elevated, no carotid bruits. Lungs: clear bilaterally. Cardiac: regular rhythm, normal S1-2, no obvious murmur. Abdomen: benign. Extremities: Trace pretibial edema, pulses intact. Neurologic: normal affect and conversation, nonfocal. Results & Data Vital Signs (Past 12 Hours) Vital Signs Temp Pulse Resp BP Pulse Ox O2 Del Method 01/18/24 07:31 CPAP 01/18/24 07:24 97.5 F L 59 L 18 112/73 98 Room Air 01/18/24 03:51 97.5 F L 60 16 149/80 H 98 Room Air 01/17/24 23:02 CPAP Laboratory Results Normal CBC. Normal electrolytes, BUN 22, creatinine 0.79. TSH was normal PG Care Time/CCT Total # of Minutes Spent Total Time Spent with Patient: Total time spent is greater than 50% in coordination of care (as documented) at patient's floor/unit and/or counseling patient: Coding Level of Care Code 39697 IN/OBS CONSULT LVL 4,60M Diagnoses Status post placement of cardiac pacemaker Z95.0 Fall W19.XXXA Syncope R55 Atrial flutter I48.92 Seizure-like activity R56.9
[2024-01-18] MEDS: LORazepam 2 MG/1 ML VIAL ONE (11:38)
[2024-01-18] MEDS: levETIRAcetam 500 MG/5 ML VIAL IV SCH ×2 (11:52→19:06)
--- NOTE | 2024-01-19 07:56 | Hospitalist Progress Note ---
Date of Service January 19, 2024 Assessment & Plan (1) Seizure-like activity: Plan: EVal this morning. Witnessed seizure like activity with jerking of his left upper arm, lasting about 1-2 minutes with kitchen staff. Did NOT loose consciousness. Has jelly on head but not performed EEG yet. He notes he can feel almost an aura of facial tightness on his left before they occur. Discussed possible seizure w/ low blood sugars however did not have BSG obtained (RN to check now). Discussed neurology consult, ativan to be available but to alert nursing if having sensation one coming on so that we can provide medications to prevent but could have some weakness on that side from a miguelina's paralysis. Telemetry w/ paced aflutter, reports seen by cardiology and nothing to change at this time/on the right beds. No fever/chills, chest pain, shortness of breath provided. After leaving room, patient w/ additional suspected focal motor seizure lasting about 45-90 seconds. Maintained consciousness during and was able to answer my questions. Did have some weakness in left arm following, ?todds paralysis. Ativan 1mg IV stat provided. POC Glu 223 added stat prolactin level EEG pending, Will make ativan IV available as needed Seizure precautions ordered Keppra ordered 500mg IV BID initially, sent video to neurology given EEG reported normal this morning. Recs to increase to 1gm IV BID which has been done. Continued monitoring 01/18 No further seizure like activity reported since starting Keppra IV BID. essaged Neuro for recs regarding ongoing use --> Per Dr García, given metabolic related suspected/MRI brain negative for mass and EEG normal, would recommend continuing keppra 1gm BID x 1 week and then can decrease to 500mg BID x 1 week then stop/monitor for any issues Fatigued today, possible from Keppra. Did eat good breakfast for nurse but not hungry at lunch/sleeping -->Encouraged CPAP use when sleeping (not using today). Did look a little dry this afternoon and will hold off lasix for now Did note on oxycodone for pain control at baseline and reported using 2-3x/day -- reduce to 5mg as needed to prevent over sedation. Did get dose on 01/16 and doubt activity related to withdrawal/no drinking reported DM educator asked /voicemail for daughter to bring Polo to show on use to prevent repeat issues/hypoglycemic episodes at home --> POCs have been 190, 113, 159 --> 151 from lunch overnight to lunch today. SSI parameters discussed with pharmacy and have been made to 140-180 to prevent lows --> Will need follow up -- Planning for once daily insulin with mealtime coverage at discharge,will monitor needs while inpatient but POC have been much improved (cautious for over correction to prevent significant drops given above) PT/OT rec rehab, should be strongly encouraged and will continue to encourage to prevent readmission and allow for close monitoring with continued therapy to work on strength/conditioning -->Continued to encourage rehab for short term. CM to follow pending repeat discussion in AM. (2) Hyperglycemia: Plan: At baseline takes 70 units of 70/30 once daily (not ideal) w/ reported swings. Recent admission w/ glargine 12 u BID w/ SSI but no changes made at dc despite A1c 12.5 needing better control and patient denied reporting issues with more frequent administration in follow up discussions. Had been seen by EMS w/ syncope reports BSG in 30s, unresponsive (patient reports not remembering episode, had been shaking/jerking-- see seizure activity above, possible 2nd to hypoglycemic event and now on Keppra IV/ativan available) BSG 400s on admission, persistant despite IV fluid bolus 500cc NSS x 3 and insulin 10u x 2 Pharmacy consulted, adjustments have been made and DM educator on consult and hopefully daughter able to bring Polo monitor to demonstrate use as should be having 24/7 monitoring given reported swings/now w/ seizure activity Looser parameters to prevent lows and have been stable/acceptable Eventual plan at co to include MEAL TIME COVERAGE for better glucose control/tx DM --if on stable regimen but having significant issues with hypoglycemia could consider rare conditions like nesidioblastosis in f/u endocrinology as CM to assist in arranging Continue to monitor/appreciate glycemic assistance (3) Atrial flutter: Plan: Reported fall/tremors. EKG w/ Vpaced. TSH not elevated on check Pacemaker interrogation performed given reports of syncope and has pacemaker for hx heart block. -->Rep called to say has been in aflutter which she reports he is in most of the time and paces in ventricle 100% of the time. Tx to monitored bed ECHO noted moderate mitral regurgitation and aortic root dilatation (4.4cm) now seen compared to study in Feb 2021. LV systolic function normal. EF 55-60%. Flattened septum c/w RV pressure overload. RV moderately dilated but normal RV systolic function. Remains stable/paced/aflutter on telemetry Cards consulted and remains on metoprolol/xarelto, no adjustments needed and remains on current regimen Will continue telemetry monitoring w/ seizure activity for now but if remaining stable and ongoing inpatient stay can downgrade in AM (4) Fall: Plan: Suspected on admission 2nd to hypoglycemia in the 30s. No alcohol use reported/denied use. Patient does have 4 -/5 field cane scaler strength, elbow flexion, elbow extension compared to robust 5/5 in the right. He thinks that this worsened after his fall several days ago and he has had some spasms. No spasms are noted and biceps reflexes 2+ without crossing joint line/spasticity. He is not sure if this preceded his fall or not, and does not think this was present when he had his fall last month and was seen with C-spine fractures. Given focal strength deficits and fall will obtain MRIbrain to R/oh CVA, and extend down to the C-spine due to trauma Has pacemaker, interrogation as above w/ underlying aflutter but on BB/xarelto and rates controlled CT head negative MRI brain negative, does have chronic microvascular changes MRI cervical spine neg for acute fracture/subluxation but does have spinal stenosis. Noting mild marrow edema reported likely chronic? Neuro consulted as above Lumbar spine neg acute fx, noting stenosis PT/OT rec rehab, pt declined. Will need f/u discussions and encouragement for short term IPR (5) Factor V Leiden mutation: Plan: Anticoagulation continued with xarelto and has been continued (6) DM (diabetes mellitus), type 2, uncontrolled w/neurologic complication: Plan: A1c 12.5 Pharmacy consulted, see above. DM educator consulted while inpatient Planning for basal/bolus at co as outlined under hyperglycemia and plan for endocrinology referral at co (7) B12 deficiency: Plan: B12 low normal 203, IM replacement ordered while inpatient and will plan to continue PO at co Plan Dispo: continued inpatient stay, Keppra IV BID for seizure and no further episodes reported. will plan to transition to oral in AM if no issues Lasix placed on HOLD, PO hydration encouraged for now. Pharmacy assisting w/ glycemic control and hopefully daughter able to bring in Polo monitor or will need to look into getting a new unit as should have 24/7 monitoring WILL NEED TO STRONGLY ENCOURAGE IPR AT DC FOR SHORT TERM. Hopefully will be agreeable Will need DMV paperwork filled out prior to dc, avoidance of driving recommended given such until f/u neuro outpatient Admission and Anticipated Discharge Date Admission Date: January 16, 2024 Supervising Physician Co-Signing Physician Notes The patient was not seen by me. The chart was reviewed. Case discussed with TIAN Hernandez. Agree with assessment and plan Subjective Eval around lunch, resting in bed. Snoring but declined me putting his CPAP on, did encourage. Did eat breakfast, not great appetite for lunch though as wanting to rest. Little fatigue but denied issues, discussed keppra 1gm x 1 week then cut in half per neurology for another week then dc and monitor. Asked if daughter coming w/ polo monitor to allow us to place/show how to use, he reports he is not sure if this is the plan, will need to confirm. DIscussed rehab for patient, he isn't too keen/has friend at home but discussed needing continued medical provider attention and would like to consider rehab for continued monitoring/adjustment to get on stable regimen and prevent lows/falls/repeat seizures. Remains on telemetry, no changes to BB/xarelto. Will place lasix on hold for now to ensure keeping up with oral intake. Denies CP/SOB, remains on room air 97% Physical Exam 2 Physical Exam: General: 68yo obese male resting in bed, fatigued/wanting to sleep, falls back asleep easily but DENIED me to place CPAP back on, denied further seizure activity HEENT: head atraumatic, normocephalic, mm DRY, trachea midline Resp: even/unlabored, no tachypnea, bibasilar crackles but no wheezing/rales, on room air 96% CV: paced on telemetry in 60s/flutter, +faint systolic murmur, no significant pitting edema GI: +BS, +obese, +distension, no tenderness/guarding/rebound no lin MSK/Neuro: nonfocal on exam, improvement in field cane scaler strength and leg strength today compared to yesterday no seizure like activity witnessed Psych: alert to person/place time but falls back asleep quickly, wanting to rest Results & Data Results & Data Vital Signs (Past 12 Hours) Vital Signs Temp Pulse Pulse Pulse Resp BP Pulse Ox 01/19/24 02:35 36.3 C L 60 18 115/76 97 01/18/24 23:07 36.3 C L 60 18 104/64 98 01/18/24 21:44 62 01/18/24 21:19 60 O2 Del Method 01/19/24 02:35 Room Air 01/18/24 23:07 Room Air 01/18/24 21:44 01/18/24 21:19 Laboratory Results 01/19/24 08:30 01/19/24 08:31 PG Care Time/CCT Total # of Minutes Spent Total Time Spent with Patient: Total time spent is greater than 50% in coordination of care (as documented) at patient's floor/unit and/or counseling patient: Coding Level of Care Code 66322 SUB INP/OBS CARE 3/50MIN Diagnoses Seizure-like activity R56.9 Hyperglycemia R73.9 Atrial flutter I48.92 Fall W19.XXXA Factor V Leiden mutation D68.51 DM (diabetes mellitus), type 2, uncontrolled w/neurologic complication E11.49; E11.65 B12 deficiency E53.8
[2024-01-19 09:20] LABS: Basophils # (auto) 0.04 K/uL (0.00-0.20); Basophils % (auto) 0.6 %; Eosinophils # (auto) 0.21 K/uL (0.00-0.50); Eosinophils % (auto) 3.3 %; Hematocrit (blood only) 45.6 % (42.0-52.0); Hemoglobin 15.5 g/dl (14.0-18.0); Immature Granulocytes # (auto) 0.04 K/uL (0.01-0.20); Immature Granulocytes % (auto) 0.6 %; Lymphocytes # (auto) 1.56 K/uL (1.20-3.40); Lymphocytes % (auto) 24.8 %; Mean Corpuscular Hemoglobin 30.1 pg (25.0-34.0); Mean Corpuscular Volume 88.5 fL (80.0-100.0); Mean Platelet Volume 11.3 fL (9.4-12.4); Monocytes # (auto) 0.52 K/uL (0.11-0.59); Monocytes % (auto) 8.3 %; Neutrophils # (auto) 3.92 K/uL (1.40-6.50); Neutrophils % (auto) 62.4 %; Platelet Count 281 K/uL (130-400); RDW Coefficient of Variation 12.9 % (11.5-14.5); Red Blood Count 5.15 M/uL (4.70-6.10); White Blood Count 6.29 K/ul (4.8-10.8)
[2024-01-19 09:41] LABS: BUN Creatinine Ratio 32.4 (10-20); Calcium 9.1 mg/dl (8.6-10.3); Creatinine Clr Calc Pharmacy 125.3 ml/min; Magnesium 2.1 mg/dl (1.7-2.4)
--- NOTE | 2024-01-19 13:31 | Pharmacy Report ---
Pharmacy Glycemic Short Note 2 - Date of Service January 19, 2024 - Glycemic Short BSG Results (Last 24 hours): 01/18/24 01/18/24 01/19/24 17:10 20:17 07:57 Glucose POC Glucose 113 H 159 H 151 H 01/19/24 01/19/24 08:31 12:23 Glucose 187 H POC Glucose 219 H OUTPATIENT ANTIDIABETIC REGIMEN: * Novolin 70/30 - 70 units once daily at lunch time / per provider notes ASSESSMENT: 01/18 * Patient received total 55 units of insulin yesterday: 30 units basal + 25 units bolus. * BSGs were well controlled with lowest value being 113 mg/dl at dinner time. * Patient has ongoing intermittent seizures. Discussed with Charity Reyes, will increase BSG goal range to 140-180 mg/dl for loose insulin correction. * Novolog carb ratio also loosened slightly. * Will continue basal at 30 units in the AM. 01/17 * Patient received total of 89 units of insulin yesterday, of which 37 units were basal insulin * Fasting BSG improving, 156 mg/dL - will scale back to Lantus 30 units daily * No change to CF/CR 01/16 * 68 year old admitted with hyperglycemia, weakness. Received multiple IV insulin boluses last evening and started on insulin regimen similar to last admission. BSG 385 mg/dL at time of consult - will give 5 units iv x1 now and tighten novolog to weight based stress 3 dosing (based upon adj bw). Received 12 units of basal insulin this AM, will double dose and give 25 units x 1 now to target daily basal insulin dose closer to ~40 units. PLAN FOR INPATIENT GLYCEMIC CONTROL: * Hold outpatient oral diabetes medications * Basal insulin * Lantus 30 units daily * Bolus insulin * NovoLog per scale ACHS or Q6hrs while NPO * Goal Range: Low 140 mg/dL - High 180 mg/dL * Correction Factor: 20 mg/dL/unit * Nutritional / Prandial insulin per carb ratio of 1 unit per 7 grams CHO consumed
--- NOTE | 2024-01-19 17:45 | Communication Note ---
Date of Service: January 19, 2024 Discussed w/ supervising provider and given sedation w/ keppra will plan to decrease to 500mg BID for now. Will continue seizure precautions/monitoring however suspect too much. CPAP encouraged w/ sleeping
[2024-01-19] MEDS: oxyCODONE/ACETAMINOPHEN 5mg/325mg TAB PO PRN (21:25)
[2024-01-19] MEDS: levETIRAcetam 500 MG/5 ML VIAL IV SCH (22:57)
[2024-01-20 07:08] LABS: Hematocrit (blood only) 44.3 % (42.0-52.0); Hemoglobin 14.7 g/dl (14.0-18.0); Mean Corpuscular Hemoglobin 29.5 pg (25.0-34.0); Mean Corpuscular Hgb Conc 33.2 g/dL (32.0-36.0); Mean Corpuscular Volume 88.8 fL (80.0-100.0); Mean Platelet Volume 11.5 fL (9.4-12.4); Platelet Count 286 K/uL (130-400); RDW Coefficient of Variation 12.8 % (11.5-14.5); RDW Standard Deviation 41.9 fL (36.4-46.3); Red Blood Count 4.99 M/uL (4.70-6.10); White Blood Count 6.38 K/ul (4.8-10.8)
[2024-01-20 07:36] LABS: BUN Creatinine Ratio 35.2 (10-20); Calcium 8.9 mg/dl (8.6-10.3); Creatinine Clr Calc Pharmacy 132.3 ml/min; Magnesium 2.2 mg/dl (1.7-2.4); Potassium 4.2 mmol/L (3.5-5.1)
--- NOTE | 2024-01-20 07:40 | Hospitalist Progress Note ---
Date of Service January 20, 2024 Assessment & Plan (1) Seizure-like activity: Plan: Suspect as cause for his syncopal episode as found down w/ hypoglycemia. Did report sensation of left sided face tightness over the past 2-3 days prior to events of left arm twitching/possible seizure activity prior to seizures coming on and discussed to alert nursing if this sensation (noting patient reported nursing had told him no need to report this as "not able to do anything about it" -- this was discussed/encouraged to alert nursing PRIOR to events on initial eval AM 01/17 prior to leaving room following EEG and then several minutes was alerted by nursing to return to room) Eval AM 01/17 w/ Witnessed seizure like activity with jerking of his left upper arm, lasting about 1-2 minutes with kitchen staff. Did NOT loose consciousness --Appeared focal motor seizure, some L sided weakness following ?miguelina's paralysis (resolved on repeat exam) Had just completed EEG, BSG checked and was 223 but ? if provoked by EEG testing. Seizure precautions placed Ativan 1mg x 1 provided, keppra 500mg BID ordered initially and consult placed for Neuro/video sent given EEG reported normal Prolactin obtained which was NOT elevated Recs by neurology to increase to 1gm BID which was done. NO FURTHER SEIZURE ACTIVITY 01/18, noting keppra making very sleepy/CPAP encouraged w/ sleeping but has declined Discussed with supervising provider and DECREASED Keppra to 500mg BID 01/18 PM, still fatigued but able to discuss longer without falling asleep and will hopefully able to titrate off in next 1-2 weeks --> can convert to PO in AM. Oxycodone continued but decreased to prevent sedation, keppra can also help with pain and reported has been helpful. Ativan available for breakthrough seizure if occurs Pharmacy assisting with glycemic management, goal changed to 140-180 to prevent lows DM educator on consult/following. Daughter brought in home Polo monitor and will need to be shown how to use as need for 24/7 monitoring to prevent hypoglycemia and allow for better tracking. POC much improved and stable, getting glargine 25u QAM daily for today with SLIDING scale and plan for mealtime coverage at discharge PT/OT rec for rehab, will need to continue to encourage Will plan for outpt Neuro follow up at discharge. Needs DMV paperwork filled out prior to dc as discussed with patient should NOT be driving given such Monitor (2) Hyperglycemia: Plan: At baseline takes 70 units of 70/30 once daily (not ideal) w/ reported swings. Recent admission w/ glargine 12 u BID w/ SSI but no changes made at dc despite A1c 12.5 needing better control and patient denied reporting issues with more frequent administration in follow up discussions. Had been seen by EMS w/ syncope reports BSG in 30s, unresponsive (patient reports not remembering episode, had been shaking/jerking-- see seizure activity above, possible 2nd to hypoglycemic event and now on Keppra IV/ativan available) BSG 400s on admission, persistent despite IV fluid bolus 500cc NSS x 3 and insulin 10u x 2 Pharmacy/DM educator consulted Basal/bolus insulin has been ordered and goal range 140-180 as above to prevent lows given seizure likely activity and suspect that is what occurred DOPER Plan for once daily insulin with MEAL TIME COVERAGE and 24/7 monitoring with Polo at discharge. DM educator consulted and Polo in room, will need follow up for teaching Suspected benefit from endocrinology follow up at discharge as continued uncontrolled DM and terminal computer operator management and CM to assist Continue to monitor/adj to sliding scale as needed (3) Atrial flutter: Plan: Reported fall/tremors (likely 2nd to seizure as above) . EKG w/ Vpaced. TSH not elevated on check Pacemaker interrogation performed given reports of syncope and has pacemaker for hx heart block. -->Rep called to say has been in aflutter which she reports he is in most of the time and paces in ventricle 100% of the time. ECHO obtained and noted moderate mitral regurgitation and aortic root dilatation (4.4cm) now seen compared to study in Feb 2021. LV systolic function normal. EF 55-60%. Flattened septum c/w RV pressure overload. RV moderately dilated but normal RV systolic function. Remains on metoprolol, xarelto Cards consulted for completeness and no changes needed at this time. Has had noted in the past on EKGs and on appropriate medications Mag/K replete Can downgrade in AM if no seizure activity as has remained paced outpt cards f/u (4) Fall: Plan: Suspected on admission 2nd to hypoglycemia in the 30s. No alcohol use reported/denied use. Patient does have 4 -/5 health policy analyst strength, elbow flexion, elbow extension compared to robust 5/5 in the right. He thinks that this worsened after his fall several days ago and he has had some spasms. No spasms are noted and biceps reflexes 2+ without crossing joint line/spasticity. He is not sure if this preceded his fall or not, and does not think this was present when he had his fall last month and was seen with C-spine fractures. Given focal strength deficits and fall will obtain MRIbrain to R/oh CVA, and extend down to the C-spine due to trauma Pacer interrogation as above CT head negative MRI brain negative ( does have chronic microvascular changes) MRI cervical spine neg for acute fracture/subluxation but does have spinal stenosis. Noting mild marrow edema reported likely chronic? Neuro consulted as above Lumbar spine neg acute fx, noting stenosis PT/OT rec rehab, pt declined. STRONGLY ENCOURAGED AND RECOMMENDED AND HE IS TO THINK ABOUT THIS but has continued to decline. Suspect ongoing hospitalization if not attempting prior to returning home . CM to follow (5) Factor V Leiden mutation: Plan: Anticoagulation continued with xarelto and has been continued (6) DM (diabetes mellitus), type 2, uncontrolled w/neurologic complication: Plan: A1c 12.5 Pharmacy consulted, see above. DM educator consulted while inpatient Planning for basal/bolus at [place] as outlined under hyperglycemia and plan for endocrinology referral at tn (7) B12 deficiency: Plan: B12 low normal 203, IM replacement ordered x 3 and converted to PO daily 1000mcg. Would rec to continue this at tn Plan Dispo: continued inpatient stay, keppra reduced to 500mg BID as no further seizures and prevention of sedation. Monitor BSGs in AM/any evidence for seizures w/ reduction in Keppra and pharmacy assisting for glycemic and BSGs stable at this time w/ looser goal range to prevent lows. DM educator to follow up for Polo/teaching. Plan for endocrinology follow up Lasix on HOLD, PO hydration encouraged. No significant LE edema, 98% on RA (but should be using CPAP) PT/OT rec for rehab which I believe would be in patient's best interest however he is currently continuing to decline such but will continue to encourage. Will need DMV paperwork filled out prior to dc, avoidance of driving recommended given such until f/u neuro outpatient Admission and Anticipated Discharge Date Admission Date: January 16, 2024 Supervising Physician Co-Signing Physician Notes The patient was not seen by me. The chart was reviewed. Case discussed with TIAN Hernandez. Agree with assessment and plan Subjective Eval this morning, sitting up in chair. Ate breakfast. Sleeping, medicated w/ lower dose oxy for pain but reported improved pain as discussed keppra can be used for however did agree likely too much of dose and prevention of sedation has been decreased to 500mg IV BID. Lasix on hold, no significant overload on exam. Strength returned to his left hand, likely from seizure but has not had any further episodes. Polo monitor at bedside, DM educator to follow up as discussed. Mentioned rehab again, he reports "rehab isn't a place for me." Discussed they could increase therapy and do what I am doing and could allow return to home safer. Discussed w/ seizure he should NOT be driving , will follow up. Telemetry stable at present time. Lasix on hold for now. CPAP STRONGLY encourage but continued to decline for now. BSGs much improved. Physical Exam Physical Exam: General: 68yo obese male sitting up in chair following lunch, sleeping WITHOUT CPAP on, encouraged use, fatigued appearing, agrees medication too sedating but denied further seizure activity/stregth to L hand resolved/back to baseline HEENT: head atraumatic, normocephalic, mm slightly dry, trachea midline Resp: even/unlabored, no tachypnea, bibasilar crackles but no wheezing/rales, on room air 96% CV: paced on telemetry, +faint systolic murmur, no significant pitting edema, pulses present GI: +BS, +obese, +distension, no tenderness/guarding/rebound no lin MSK/Neuro: nonfocal on exam, improvement in health policy analyst strength and leg strength today compared to yesterday and back to baseline, CN intact grossly but generazlied weakness no seizure like activity witnessed/reported Psych: alert to person/place time but wanting to sleep, fatigued appearing Results & Data Results & Data Vital Signs (Past 12 Hours) Vital Signs Temp Pulse Pulse Resp BP Pulse Ox O2 Del Method 01/20/24 07:23 Room Air 01/20/24 07:10 60 01/20/24 03:59 36.4 C L 61 18 99/54 L 96 Room Air 01/19/24 22:12 36.4 C L 60 16 101/56 L 98 Room Air 01/19/24 21:58 60 Laboratory Results 01/20/24 01/20/24 01/20/24 Range/Units 11:49 08:15 05:52 WBC 6.38 (4.8-10.8) K/ul RBC 4.99 (4.70-6.10) M/uL Hgb 14.7 (14.0-18.0) g/dl Hct 44.3 (42.0-52.0) % MCV 88.8 (80.0-100.0) fL MCH 29.5 (25.0-34.0) pg MCHC 33.2 (32.0-36.0) g/dL RDW Std Deviation 41.9 (36.4-46.3) fL RDW Coeff of Morena 12.8 (11.5-14.5) % Plt Count 286 (130-400) K/uL MPV 11.5 (9.4-12.4) fL Sodium 138 (136-145) mmol/L Potassium 4.2 (3.5-5.1) mmol/L Chloride 101 (98-107) mmol/L Carbon Dioxide 32 (21-32) mmol/L Anion Gap 5 (3-11) BUN 25 H (6-23) mg/dl Creatinine 0.71 (0.6-1.4) mg/dl Est Cr Clr Drug Dosing 132.3 ml/min eGFR 100.56 BUN/Creatinine Ratio 35.2 H (10-20) Glucose 120 H (70-99(Fasting)) mg/dl POC Glucose 235 H 102 H (70-99) mg/dl Calcium 8.9 (8.6-10.3) mg/dl Magnesium 2.2 (1.7-2.4) mg/dl Lyme Disease Screen (Negative) 01/19/24 01/19/24 01/19/24 Range/Units 20:47 16:57 08:36 WBC (4.8-10.8) K/ul RBC (4.70-6.10) M/uL Hgb (14.0-18.0) g/dl Hct (42.0-52.0) % MCV (80.0-100.0) fL MCH (25.0-34.0) pg MCHC (32.0-36.0) g/dL RDW Std Deviation (36.4-46.3) fL RDW Coeff of Morena (11.5-14.5) % Plt Count (130-400) K/uL MPV (9.4-12.4) fL Sodium (136-145) mmol/L Potassium (3.5-5.1) mmol/L Chloride (98-107) mmol/L Carbon Dioxide (21-32) mmol/L Anion Gap (3-11) BUN (6-23) mg/dl Creatinine (0.6-1.4) mg/dl Est Cr Clr Drug Dosing ml/min eGFR BUN/Creatinine Ratio (10-20) Glucose (70-99(Fasting)) mg/dl POC Glucose 199 H 212 H (70-99) mg/dl Calcium (8.6-10.3) mg/dl Magnesium (1.7-2.4) mg/dl Lyme Disease Screen Negative (Negative) PG Care Time/CCT Total # of Minutes Spent Total Time Spent with Patient: Total time spent is greater than 50% in coordination of care (as documented) at patient's floor/unit and/or counseling patient: Coding Level of Care Code 81940 SUB INP/OBS CARE 3/50MIN Diagnoses Seizure-like activity R56.9 Hyperglycemia R73.9 Atrial flutter I48.92 Fall W19.XXXA Factor V Leiden mutation D68.51 DM (diabetes mellitus), type 2, uncontrolled w/neurologic complication E11.49; E11.65 B12 deficiency E53.8
[2024-01-20] MEDS: CYANOCOBALAMIN (B-12) 500 MCG TABLET PO SCH (08:15)
[2024-01-20] MEDS: LANTUS PER UNIT CHARGE SQ SCH (09:08)
[2024-01-21 06:19] LABS: Base Excess VBG 6.5 mEq/L; HCO3 VBG 33 mmol/L; Oxygen Saturation VBG 69.2 %; PCO2 VBG 53 mmHg (38-50); PO2 VBG 40 mmHg
[2024-01-21 06:24] LABS: Hematocrit (blood only) 43.7 % (42.0-52.0); Hemoglobin 14.9 g/dl (14.0-18.0); Mean Corpuscular Hemoglobin 29.7 pg (25.0-34.0); Mean Corpuscular Hgb Conc 34.1 g/dL (32.0-36.0); Mean Corpuscular Volume 87.2 fL (80.0-100.0); Mean Platelet Volume 11.1 fL (9.4-12.4); Platelet Count 266 K/uL (130-400); RDW Coefficient of Variation 12.9 % (11.5-14.5); RDW Standard Deviation 41.1 fL (36.4-46.3); Red Blood Count 5.01 M/uL (4.70-6.10); White Blood Count 7.84 K/ul (4.8-10.8)
[2024-01-21 06:46] LABS: BUN Creatinine Ratio 32.9 (10-20); Calcium 8.9 mg/dl (8.6-10.3); Creatinine Clr Calc Pharmacy 134.2 ml/min; Magnesium 2.3 mg/dl (1.7-2.4); Potassium 4.4 mmol/L (3.5-5.1)
--- NOTE | 2024-01-21 08:04 | Hospitalist Progress Note ---
Date of Service January 21, 2024 Assessment & Plan (1) Seizure-like activity: Plan: Suspect as cause for his syncopal episode as found down w/ hypoglycemia. Did report sensation of left sided face tightness over the past 2-3 days prior to events of left arm twitching/possible seizure activity prior to seizures coming on and discussed to alert nursing if this sensation (noting patient reported nursing had told him no need to report this as "not able to do anything about it" -- this was discussed/encouraged to alert nursing PRIOR to events on initial eval AM 01/17 prior to leaving room following EEG and then several minutes was alerted by nursing to return to room) Eval AM 01/17 w/ Witnessed seizure like activity with jerking of his left upper arm, lasting about 1-2 minutes with kitchen staff. Did NOT loose consciousness --Appeared focal motor seizure, some L sided weakness following ?miguelina's paralysis (resolved on repeat exam) EEG just had been completed and reported negative. MRI brain prior w/o evidence for infarct or mass. ?provoked by EEG Neuro consulted Initially Keppra rec for 1gm BID which was done but significant sedation/oversedation and was REDUCED to 500mg BID 01/18 with IMPROVEMENT on exam/no further seizure activity Will plan to continue keppra 500mg PO BID until seen by neurology in follow up. Will need DMV paperwork filled out prior to dc/discussed should NOT drive until cleared in follow up BSGs much improved/stable, DM educator to follow up in AM for teaching. Plan as below for DM management at dc WBC wnl, afebrile. BUN/Cr normalized. Lasix/lisinopril on hold. Asking for standing scale weight/if tolerating oral intake will plan to resume diuretics pending BP. PT/OT rec rehab, continued discussion/declining and will have them see him again in AM to see if improvement now that to baseline w/ resolution in above to see if stable for dc w/ HH? (2) Hyperglycemia: Plan: At baseline takes 70 units of 70/30 once daily (not ideal) w/ reported swings. Recent admission w/ glargine 12 u BID w/ SSI but no changes made at dc despite A1c 12.5 needing better control and patient denied reporting issues with more frequent administration in follow up discussions. Had been seen by EMS w/ syncope reports BSG in 30s, unresponsive (patient reports not remembering episode, had been shaking/jerking-- see seizure activity above, possible 2nd to hypoglycemic event and now on Keppra IV/ativan available) BSG 400s on admission persistent despite IV fluid bolus 500cc NSS x 3 and insulin 10u x 2 Pharmacy/DM educator consulted Basal/bolus insulin has been ordered and goal range 140-180 as above to prevent lows given seizure likely activity and suspect that is what occurred CONSERVATION COORDINATOR -->Plan for once daily insulin with MEAL TIME COVERAGE and 24/7 monitoring with Polo at discharge. DM educator consulted and Polo in room, will need follow up for teaching Suspected benefit from endocrinology follow up at discharge as continued uncontrolled DM and emt intermediate management and CM to assist. He reports NOT good interaction with Dr Shelton and will see about getting in at least w/ one of the JU in meantime given ongoing issues/NOT controlled w/ elevated A1c Continue to monitor/adj to sliding scale as needed (3) Atrial flutter: Plan: Reported fall/tremors (likely 2nd to seizure as above, NO FURTHER TREMORS SINCE ON KEPPRA ABOVE) . EKG w/ Vpaced. TSH not elevated on check Pacemaker interrogation performed given reports of syncope and has pacemaker for hx heart block. -->Rep called to say has been in aflutter which she reports he is in most of the time and paces in ventricle 100% of the time. ECHO obtained and noted moderate mitral regurgitation and aortic root dilatation (4.4cm) now seen compared to study in Feb 2021. LV systolic function normal. EF 55-60%. Flattened septum c/w RV pressure overload. RV moderately dilated but normal RV systolic function. Remains on metoprolol, xarelto Cards consulted for completeness and no changes needed at this time. Has had noted in the past on EKGs and on appropriate medications Mag/K replete outpt cards f/u (4) Fall: Plan: Suspected on admission 2nd to hypoglycemia in the 30s. No alcohol use reported/denied use. Patient does have 4 -/5 row boss hoeing strength, elbow flexion, elbow extension compared to robust 5/5 in the right. He thinks that this worsened after his fall several days ago and he has had some spasms. No spasms are noted and biceps reflexes 2+ without crossing joint line/spasticity. He is not sure if this preceded his fall or not, and does not think this was present when he had his fall last month and was seen with C-spine fractures. Given focal strength deficits and fall will obtain MRIbrain to R/oh CVA, and extend down to the C-spine due to trauma Pacer interrogation as above CT head negative MRI brain negative ( does have chronic microvascular changes) MRI cervical spine neg for acute fracture/subluxation but does have spinal stenosis. Noting mild marrow edema reported likely chronic? Neuro consulted as above Lumbar spine neg acute fx, noting stenosis PT/OT rec rehab, pt declined. STRONGLY ENCOURAGED AND RECOMMENDED AND HE IS TO THINK ABOUT THIS but has continued to decline. Suspect ongoing hospitalization if not attempting prior to returning home . CM to follow (5) Factor V Leiden mutation: Plan: Anticoagulation continued with xarelto and has been continued (6) DM (diabetes mellitus), type 2, uncontrolled w/neurologic complication: Plan: A1c 12.5 Pharmacy consulted, see above. DM educator consulted while inpatient Planning for basal/bolus at me as outlined under hyperglycemia and plan for endocrinology referral at me (7) B12 deficiency: Plan: B12 low normal 203, IM replacement ordered x 3 and converted to PO daily 1000mcg. --Would rec to continue this at me Plan Dispo: continued inpatient stay, keppra continued at lower dose and no further seizure activity or tremors reported. Pharmacy assisting w/ DM management and DM educator to f/u in AM Lasix on hold for now as well as lisinopril but more awake/alert and oriented and will plan to resume lisinopril for BP but hold off lasix as no significant LE edema/hypoxia and monitor for now PT/OT rec for rehab which I believe would be in patient's best interest however he is currently continuing to decline such but will continue to encourage. Will need DMV paperwork filled out prior to dc, avoidance of driving recommended given such until f/u neuro outpatient Admission and Anticipated Discharge Date Admission Date: January 16, 2024 Supervising Physician Co-Signing Physician Notes The patient was not seen by me. The chart was reviewed. Case discussed with TIAN Hernandez. Agree with assessment and plan Subjective Eval this morning, sitting up in chair, appears MUCH better today. More awake today/conversive. Keppra decreased and continued at lower dose. Reports NO further shaking. Good appetite./improved. Moved bowels this morning but little hard/constipated and wanted softener. Will order colace/monitor. No CP/SOB. Declining CPAP HS. BSGs improved, Polo at bedside. He would like to avoid rehab, will see how he does w/ therapy in AM. Possible dc w/ HH pending repeat evals. Physical Exam Physical Exam: General: 68yo obese male sitting up in chair, MUCH improved today, no further seizures reported and strength back to baseline HEENT: head atraumatic, normocephalic, mm improved, trachea midline, thick neck Resp: even/unlabored, no tachypnea, bibasilar crackles but no wheezing/rales, on room air 95% CV: paced on telemetry, +faint systolic murmur, no significant pitting edema, pulses present GI: +BS, +obese, less distension, no tenderness/guarding/rebound no lin MSK/Neuro: nonfocal on exam, improvement in row boss hoeing strength and leg strength today and back to baseline, improvement in generzlied weakness, gait not assessed in chair Psych: alert to person/place time, no further fatigue/falling asleep Results & Data Results & Data Vital Signs (Past 12 Hours) Vital Signs Temp Pulse Pulse Resp BP Pulse Ox O2 Del Method 01/21/24 03:27 36.7 C 62 18 112/59 L 97 Room Air 01/20/24 22:59 Room Air 01/20/24 22:32 36.4 C L 58 L 18 103/67 95 Room Air 01/20/24 21:48 60 Laboratory Results 01/21/24 01/21/24 01/20/24 Range/Units 08:47 06:08 20:27 WBC 7.84 (4.8-10.8) K/ul RBC 5.01 (4.70-6.10) M/uL Hgb 14.9 (14.0-18.0) g/dl Hct 43.7 (42.0-52.0) % MCV 87.2 (80.0-100.0) fL MCH 29.7 (25.0-34.0) pg MCHC 34.1 (32.0-36.0) g/dL RDW Std Deviation 41.1 (36.4-46.3) fL RDW Coeff of Morena 12.9 (11.5-14.5) % Plt Count 266 (130-400) K/uL MPV 11.1 (9.4-12.4) fL VBG pH 7.40 (7.36-7.41) VBG pCO2 53 H (38-50) mmHg VBG pO2 40 mmHg VBG HCO3 33 mmol/L VBG O2 Saturation 69.2 % VBG Base Excess 6.5 mEq/L Sodium 137 (136-145) mmol/L Potassium 4.4 (3.5-5.1) mmol/L Chloride 103 (98-107) mmol/L Carbon Dioxide 29 (21-32) mmol/L Anion Gap 5 (3-11) BUN 23 (6-23) mg/dl Creatinine 0.70 (0.6-1.4) mg/dl Est Cr Clr Drug Dosing 134.2 ml/min eGFR 100.99 BUN/Creatinine Ratio 32.9 H (10-20) Glucose 162 H (70-99(Fasting)) mg/dl POC Glucose 166 H 141 H (70-99) mg/dl Calcium 8.9 (8.6-10.3) mg/dl Magnesium 2.3 (1.7-2.4) mg/dl Lyme Disease Screen (Negative) 01/20/24 01/20/24 01/19/24 Range/Units 16:59 11:49 08:36 WBC (4.8-10.8) K/ul RBC (4.70-6.10) M/uL Hgb (14.0-18.0) g/dl Hct (42.0-52.0) % MCV (80.0-100.0) fL MCH (25.0-34.0) pg MCHC (32.0-36.0) g/dL RDW Std Deviation (36.4-46.3) fL RDW Coeff of Morena (11.5-14.5) % Plt Count (130-400) K/uL MPV (9.4-12.4) fL VBG pH (7.36-7.41) VBG pCO2 (38-50) mmHg VBG pO2 mmHg VBG HCO3 mmol/L VBG O2 Saturation % VBG Base Excess mEq/L Sodium (136-145) mmol/L Potassium (3.5-5.1) mmol/L Chloride (98-107) mmol/L Carbon Dioxide (21-32) mmol/L Anion Gap (3-11) BUN (6-23) mg/dl Creatinine (0.6-1.4) mg/dl Est Cr Clr Drug Dosing ml/min eGFR BUN/Creatinine Ratio (10-20) Glucose (70-99(Fasting)) mg/dl POC Glucose 113 H 235 H (70-99) mg/dl Calcium (8.6-10.3) mg/dl Magnesium (1.7-2.4) mg/dl Lyme Disease Screen Negative (Negative) PG Care Time/CCT Total # of Minutes Spent Total Time Spent with Patient: Total time spent is greater than 50% in coordination of care (as documented) at patient's floor/unit and/or counseling patient: Coding Level of Care Code 79082 SUB INP/OBS CARE 3/50MIN Diagnoses Seizure-like activity R56.9 Hyperglycemia R73.9 Atrial flutter I48.92 Fall W19.XXXA Factor V Leiden mutation D68.51 DM (diabetes mellitus), type 2, uncontrolled w/neurologic complication E11.49; E11.65 B12 deficiency E53.8
[2024-01-21] MEDS: DOCUSATE SODIUM 100 MG CAP PO SCH (11:23)
[2024-01-22 07:40] LABS: Anion Gap 6 (3-11); BUN Creatinine Ratio 35.2 (10-20); Blood Urea Nitrogen 25 mg/dl (6-23); Calcium 8.7 mg/dl (8.6-10.3); Carbon Dioxide 29 mmol/L (21-32); Chloride 100 mmol/L (98-107); Creatinine Clr Calc Pharmacy 132.7 ml/min; Glucose 189 mg/dl (70-99(Fasting)); Magnesium 2.2 mg/dl (1.7-2.4); Sodium 135 mmol/L (136-145)
--- NOTE | 2024-01-22 07:41 | Hospitalist Progress Note ---
Date of Service January 22, 2024 Assessment & Plan (1) Seizure-like activity: Plan: Reported prodromal sensation of left face tightness/tingling prior to episodes occurs, reported happening 2-3 days prior to admission, lasting 1-2 minutes and resolving Witnessed seizure AM 01/17 following EEG. POC following as not obtained at that time was 223 however was 30s prior to admission when found down by EMS and suspect 2nd to hypoglycemia. WBC wnl/does not appear infection related. EEG reported normal by neurology, on consult Initially escalated keppra to 1gm BID per recs but too sedating and didn't fail initial dosing, decreased to 500mg BID 01/20-01/21 doing much better/reported no further episodes since 01/17 and less sedated on LOWER dose keppra Continue Keppra 500mg BID and converted to PO for today. Plan to continue at dc and plan for Neuro follow up prior to discontinuing and will need DMV paperwork filled out prior to discharge BSGs stable, DM educator to f/u on Polo/education and has mohsen downloaded on phone --> Plan for once daily insulin w/ mealtime coverage to prevent lows and should be using 24/7 monitoring Repeat therapy evals with improvement but ongoing recs for rehab. Pt declining despite encouragement and will have repeat evals in AM (2) Hyperglycemia: Plan: At baseline takes 70 units of 70/30 once daily (not ideal) w/ reported swings. Recent admission w/ glargine 12 u BID w/ SSI but no changes made at dc despite A1c 12.5 needing better control and patient denied reporting issues with more frequent administration in follow up discussions. Had been seen by EMS w/ syncope reports BSG in 30s, unresponsive (patient reports not remembering episode, had been shaking/jerking-- see seizure activity above, possible 2nd to hypoglycemic event and now on Keppra IV/ativan available) BSG 400s on admission persistent despite IV fluid bolus 500cc NSS x 3 and insulin 10u x 2 Pharmacy/DM educator consulted DM educator showed how to use Polo this morning 01/21 , mohsen on phone Rec ref to Endo per ok w/ patient but he reports he does NOT want to see Dr Dye as seen in the past. Can see about f/u with one of the APPs but encouraged NEEDS BETTER CONTROL. Discussed RISKS of HIGH/LOW as above with his lows on admission and seizure activity BSGs MUCH improved and tightened parameters w/ goal to 120-160 from 140-180 given looser parameters days prior for above -->Planning for once daily insulin with MEALTIME COVERAGE at ne and given improvement in PO intake/less sedated will monitor needs over next 24 hrs w/ improvement in PO intake (3) Atrial flutter: Plan: Hx of such, pacemaker in place for hx heart block. Interrogation ordered and had been in flutter. TSH wnl. EKG paced. ECHO obtained/cards consulted and no change in medical regimen and remains on metoprolol, xarelto Lasix to be resumed for AM given improvement in PO intake but deferred for today given no LE edema and 97% on RA but SHOULD BE USING CPAP SUSPECT NON- COMPLIANT (4) Fall: Plan: Suspected on admission 2nd to hypoglycemia in the 30s. No alcohol use reported/denied use. Patient does have 4 -/5 film waxer strength, elbow flexion, elbow extension compared to robust 5/5 in the right. He thinks that this worsened after his fall several days ago and he has had some spasms. No spasms are noted and biceps reflexes 2+ without crossing joint line/spasticity. He is not sure if this preceded his fall or not, and does not think this was present when he had his fall last month and was seen with C-spine fractures. Given focal strength deficits and fall will obtain MRIbrain to R/oh CVA, and extend down to the C-spine due to trauma Pacer interrogation as above CT head negative MRI brain negative ( does have chronic microvascular changes) MRI cervical spine neg for acute fracture/subluxation but does have spinal stenosis. Noting mild marrow edema reported likely chronic? Neuro consulted as above Lumbar spine neg acute fx, noting stenosis PT/OT rec rehab, pt declined. STRONGLY ENCOURAGED AND RECOMMENDED AND HE IS TO THINK ABOUT THIS but has continued to decline. ==Suspect ongoing hospitalization if not attempting prior to returning home . CM to follow (5) Factor V Leiden mutation: Plan: Anticoagulation continued with xarelto and has been continued (6) DM (diabetes mellitus), type 2, uncontrolled w/neurologic complication: Plan: A1c 12.5 Pharmacy consulted, see above. DM educator consulted while inpatient Planning for basal/bolus at [place] as outlined under hyperglycemia and plan for endocrinology referral at dc (7) B12 deficiency: Plan: B12 low normal 203, IM replacement ordered x 3 and converted to PO daily 1000mcg which should be continued at ne Plan Dispo: continued inpatient stay, regla converted to PO BID and should have neuro f/u arranged. DMV paperwork to be filled out prior to dc/discussed patient SHOULD NOT DRIVE until cleared Monitoring SSI needs over next 24hrs but plan for SSI w/ meals at dc for better DM control and prevention of hypoglycemia. Endo ref at ne recommended to patient Lasix to resume in AM 01/22 Needs repeat therapy evals in AM to assess for steps but continued encouragement for at least short term encouraged but if continues to decline but stable otherwise could consider discharge in AM with home health. CM to follw Admission and Anticipated Discharge Date Admission Date: January 16, 2024 Supervising Physician Co-Signing Physician Notes PA Supervision Note: I did not personally see or examine the patient today, but I verified all corona points of TIAN Reyes's assessment and plan with the following exceptions/additions: None Subjective Eval this afternoon, sitting up in bed eating lunch. Would like salt in diet, will change diet. No LE edema, discussed lasix use, he does report he doesn't use this much at home actually. Had been given prior and less dehydrated today and again discussed removing some restrictions from diet to allow salt. He reports no more seizure activity, strength returned to normal. Improvement with therapy evals but still difficulty with steps, rehab encouraged but would like to avoid and will ask to see again in AM. Reports DM educator came by this morning , helped to download mohsen for [employer] on his phone. Does report seeing some bugs today, but knows they aren't there. Changed keppra to PO/monitoring. Inquired about sleep last night which he endorsed having "good sleep" however per discussion with nursing patient was up all night watching porn loudly enough for to be heard down the paulino. Encouraged proper sleep and will maintain sleep/wake schedules. Hopeful dc in AM pending repeat therapy evals. Physical Exam 2 Physical Exam: General: 68yo obese male sitting up in bed eating lunch, NAD, alert/oriented to person/place time HEENT: head atraumatic, normocephalic, mm much improved, trachea midline, thick neck Resp: even/unlabored, no tachypnea, bibasilar crackles but no wheezing/rales, on room air 95% CV: paced on telemetry, +faint systolic murmur, NO significant pitting edema, pulses present GI: +BS, +obese, less distension since moving his bowels, no tenderness/guarding/rebound no lin MSK/Neuro: nonfocal on exam, film waxer strength back to baseline, no further significant issues with dorsiflexion on the left. strength equal bilaterally Psych: AOx3, cooperative with exam but reporting some hallucinations at times with bugs on him Results & Data Results & Data Vital Signs (Past 12 Hours) Vital Signs Temp Pulse Pulse Resp BP Pulse Ox O2 Del Method 01/22/24 07:18 60 01/22/24 03:49 36.2 C L 60 18 123/69 96 Room Air 01/21/24 23:19 36.7 C 62 18 112/52 L 97 Room Air 01/21/24 22:07 61 01/21/24 20:10 Room Air Laboratory Results 01/21/24 06:08 Mag 2.2 PG Care Time/CCT Total # of Minutes Spent Total Time Spent with Patient: Total time spent is greater than 50% in coordination of care (as documented) at patient's floor/unit and/or counseling patient: Coding Level of Care Code 29479 SUB INP/OBS CARE 3/50MIN Diagnoses Seizure-like activity R56.9 Hyperglycemia R73.9 Atrial flutter I48.92 Fall W19.XXXA Factor V Leiden mutation D68.51 DM (diabetes mellitus), type 2, uncontrolled w/neurologic complication E11.49; E11.65 B12 deficiency E53.8
--- NOTE | 2024-01-22 11:14 | Pharmacy Report ---
Pharmacy Glycemic Short Note 2 - Date of Service January 22, 2024 - Glycemic Short BSG Results (Last 24 hours): 01/21/24 01/21/24 01/21/24 11:58 17:23 20:13 Glucose POC Glucose 228 H 121 H 77 01/22/24 01/22/24 06:15 07:41 Glucose 189 H POC Glucose 181 H OUTPATIENT ANTIDIABETIC REGIMEN: * Novolin 70/30 - 70 units once daily at lunch time / per provider notes * Metformin 1000mg PO BID * A1c 12.5% 12/31/23 ASSESSMENT: 01/21 * Patient received total 61 units of insulin yesterday: 25 units basal + 36 units bolus. * BSGs acceptable with lowest value of 77 mg/dl at bedtime. * Due to ongoing intermittent seizures, BSG goal range = 140-180 mg/dl for loose insulin correction per discussion with Charity Reyes. * Continue insulin dosing at this time. Consider loosening CR at dinner if BG continues to drop at bedtime. * CDE Consult, seeing patient multiple times this visit, given discrepancy between reported home BG values and A1c result, considering continuous glucose monitor for 29/08 monitoring. 01/18 * Patient received total 55 units of insulin yesterday: 30 units basal + 25 units bolus. * BSGs were well controlled with lowest value being 113 mg/dl at dinner time. * Patient has ongoing intermittent seizures. Discussed with Charity Reyse, will increase BSG goal range to 140-180 mg/dl for loose insulin correction. * Novolog carb ratio also loosened slightly. * Will continue basal at 30 units in the AM. 01/17 * Patient received total of 89 units of insulin yesterday, of which 37 units were basal insulin * Fasting BSG improving, 156 mg/dL - will scale back to Lantus 30 units daily * No change to CF/CR 01/16 * 68 year old admitted with hyperglycemia, weakness. Received multiple IV insulin boluses last evening and started on insulin regimen similar to last admission. BSG 385 mg/dL at time of consult - will give 5 units iv x1 now and tighten novolog to weight based stress 3 dosing (based upon adj bw). Received 12 units of basal insulin this AM, will double dose and give 25 units x 1 now to target daily basal insulin dose closer to ~40 units. PLAN FOR INPATIENT GLYCEMIC CONTROL: * Hold outpatient oral diabetes medications * Basal insulin * Lantus 25 units SC daily * Bolus insulin * NovoLog per scale ACHS or Q6hrs while NPO * Goal Range: Low 140 mg/dL - High 180 mg/dL * Correction Factor: 30 mg/dL/unit * Nutritional / Prandial insulin per carb ratio of 1 unit per 5 grams CHO consumed
[2024-01-22] MEDS: levETIRAcetam 500 MG TAB PO SCH (11:51)
[2024-01-23] MEDS: ACETAMINOPHEN 325 MG TAB PO PRN (08:52)
[2024-01-23] MEDS: ERGOCALCIFEROL 1250 MCG (50,000 UNITS) CAP PO SCH (08:55)
[2024-01-23 09:02] LABS: BUN Creatinine Ratio 32.4 (10-20); Calcium 8.6 mg/dl (8.6-10.3); Creatinine Clr Calc Pharmacy 126.7 ml/min; Potassium 4.5 mmol/L (3.5-5.1)
--- NOTE | 2024-01-23 13:06 | Hospitalist Progress Note ---
Date of Service January 23, 2024 Assessment & Plan (1) Seizure-like activity: Plan: Reported prodromal sensation of left face tightness/tingling prior to episodes occurs, reported happening 2-3 days prior to admission, lasting 1-2 minutes and resolving. Was found down by EMS with blood sugar in 30s - Witnessed seizure AM 12/12 following EEG. WBC wnl/does not appear infection related - EEG reported normal by neurology, on consult - Continue Keppra 500mg BID (1g dosing was too sedating) -- continue at discharge - Follow-up with Neurology outpatient - Will need DMV paperwork filled out prior to discharge - BSGs stable, DM educator to f/u on Polo/education and has mohsen downloaded on phone > Plan for once daily insulin w/ mealtime coverage to prevent lows and should be using 24/7 monitoring PT/OT recommend rehab, patient refuses and wishes to go home with home health (2) Hyperglycemia: Plan: At baseline takes 70 units of 70/30 once daily (not ideal) w/ reported swings. Recent admission w/ glargine 12 u BID w/ SSI but no changes made at dc despite A1c 12.5 needing better control and patient denied reporting issues with more frequent administration in follow up discussions. Had been seen by EMS w/ syncope reports BSG in 30s, unresponsive (patient reports not remembering episode, had been shaking/jerking-- see seizure activity above, possible 2nd to hypoglycemic event and now on Keppra IV/ativan available) BSG 400s on admission persistent despite IV fluid bolus 500cc NSS x 3 and insulin 10u x 2 Pharmacy/DM educator consulted DM educator showed how to use Polo mohsen on phone Recommend referral to Endocrinology -- patient reports he does NOT want to see Dr. Dye as seen in the past. Can see about f/u with one of the APPs but encouraged NEEDS BETTER CONTROL. Discussed RISKS of HIGH/LOW as above with his lows on admission and seizure activity BSGs MUCH improved and tightened parameters w/ goal to 120-160 from 140-180 given looser parameters days prior for above -->Planning for once daily insulin with MEALTIME COVERAGE at dc and given improvement in PO intake/less sedated will monitor needs over next 24 hrs w/ improvement in PO intake (3) Atrial flutter: Plan: Hx of such, pacemaker in place for hx heart block. Interrogation ordered and had been in flutter. TSH wnl. EKG paced. ECHO obtained/cards consulted and no change in medical regimen and remains on metoprolol, xarelto Lasix to be resumed for AM given improvement in PO intake but deferred for today given no LE edema and 97% on RA but SHOULD BE USING CPAP SUSPECT NON- COMPLIANT (4) Fall: Plan: Suspected on admission 2nd to hypoglycemia in the 30s. No alcohol use reported/denied use. Patient does have 4 -/5 court transcriber strength, elbow flexion, elbow extension compared to robust 5/5 in the right. He thinks that this worsened after his fall several days ago and he has had some spasms. No spasms are noted and biceps reflexes 2+ without crossing joint line/spasticity. He is not sure if this preceded his fall or not, and does not think this was present when he had his fall last month and was seen with C-spine fractures. Given focal strength deficits and fall will obtain MRIbrain to R/oh CVA, and extend down to the C-spine due to trauma Pacer interrogation as above CT head negative MRI brain negative ( does have chronic microvascular changes) MRI cervical spine neg for acute fracture/subluxation but does have spinal stenosis. Noting mild marrow edema reported likely chronic? Neuro consulted as above Lumbar spine neg acute fx, noting stenosis PT/OT rec rehab, pt declined. STRONGLY ENCOURAGED AND RECOMMENDED AND HE IS TO THINK ABOUT THIS but has continued to decline. (5) Factor V Leiden mutation: Plan: Anticoagulation continued with xarelto and has been continued (6) DM (diabetes mellitus), type 2, uncontrolled w/neurologic complication: Plan: A1c 12.5 Pharmacy consulted, see above. DM educator consulted while inpatient Planning for basal/bolus at al as outlined under hyperglycemia and plan for endocrinology referral at al (7) B12 deficiency: Plan: B12 low normal 203, IM replacement ordered x 3 and converted to PO daily 1000mcg which should be continued at al Plan Needs repeat therapy evals in AM to assess for steps but continued encouragement for at least short term encouraged but if continues to decline but stable otherwise could consider discharge in AM with home health. TRUMAN to erickaw Discussed discharge planning with case management CODE STATUS: Full code Admission and Anticipated Discharge Date Admission Date: January 16, 2024 Supervising Physician Co-Signing Physician Notes PA Supervision Note: I did not personally see or examine the patient today, but I verified all corona points of TIAN Cunningham's assessment and plan with the following exceptions/ad ditions: None Subjective Patient seen and evaluated at bedside. He reports feeling improved overall. He continues to endorse tactile hallucinations, reporting "medium sized bugs crawling on my skin." He does recognize this is not real and just his "imagination playing tricks." We discussed rehab, which he is still on the fence about - suspect due to financial reasons. Encouraged him to speak with CM and allow for rehab referrals as he still has not completed stairs with PT and does have stairs to enter his apartment. He denies lightheadedness, dizziness, further seizure-like activity. No additional complaints or concerns at this time. Physical Exam Physical Exam: General: No acute distress, nondiaphoretic, well-developed, well-nourished. Skin: The skin was without rashes, erythema, edema, or bruising. Cardiac: Regular rate and rhythm. Faint systolic murmur noted. Pulm: Clear to auscultation bilaterally without wheezes, rales or rhonchi. No respiratory distress. 98% on room air. Abdominal: Soft, nontender. Distended secondary to body habitus. Bowel sounds present. Neuro: A&O x3. No focal neurological deficits. Results & Data Results & Data Vital Signs (Past 12 Hours) Vital Signs Temp Pulse Pulse Resp BP Pulse Ox O2 Del Method 01/23/24 11:46 97.9 F 60 16 109/62 98 Room Air 01/23/24 07:41 98.2 F 60 16 153/79 H 95 Room Air 01/23/24 07:26 Room Air 01/23/24 05:44 60 01/23/24 04:23 60 01/23/24 04:00 97.9 F 60 18 136/76 97 Room Air Laboratory Results Reviewed BMP PG Care Time/CCT Total # of Minutes Spent Total Time Spent with Patient: Total time spent is greater than 50% in coordination of care (as documented) at patient's floor/unit and/or counseling patient: Coding Level of Care Code 71868 SUB INP/OBS CARE 2/35MIN Diagnoses Seizure-like activity R56.9 Hyperglycemia R73.9 Atrial flutter I48.92 Fall W19.XXXA Factor V Leiden mutation D68.51 DM (diabetes mellitus), type 2, uncontrolled w/neurologic complication E11.49; E11.65 B12 deficiency E53.8
[2024-01-23] MEDS: POLYETHYLENE (MIRALAX) 17 GM PACK PO PRN (15:24)
[2024-01-24] MEDS: LANTUS PER UNIT CHARGE SQ SCH (09:03)
--- NOTE | 2024-01-24 16:36 | Discharge Summary ---
Discharge Summary Date of Service January 24, 2024 Principal Dx & Hospital Course #1 = Principal Diagnosis (1) Seizure-like activity: Reported prodromal sensation of left face tightness/tingling prior to episodes occurs, reported happening 2-3 days prior to admission, lasting 1-2 minutes and resolving. Was found down by EMS with blood sugar in 30s - Witnessed seizure AM 12/12 following EEG. WBC wnl/does not appear infection related - EEG reported normal by neurology, on consult - Continue Keppra 500mg BID (1g dosing was too sedating) - Follow-up with Neurology outpatient - Filled out DMV paperwork and navigator will fax out. Reminded patient he is not to drive until he is cleared to do so by neurology PT/OT recommend rehab -- patient was strongly encouraged to go to rehab, but continued to refuse rehab placement (2) DM (diabetes mellitus), type 2, uncontrolled w/neurologic complication: At baseline takes 70 units of 70/30 once daily (not ideal) with reported swings - A1c 12.5% in December 2023 - Had been seen by EMS with syncope reports BSG in 30s, unresponsive (patient reports not remembering episode, had been shaking/jerking -- see seizure activity above, possible 2nd to hypoglycemic event) - BSG 400s on admission - Pharmacy glycemic management/family living educator consulted - Discharged with Lantus 28 units daily and NovoLog 14 units with meals - Recommend close follow-up with PCP to ensure better diabetic control (3) Atrial flutter: Hx of such, pacemaker in place for hx heart block - Interrogation ordered and had been in flutter - TSH wnl. EKG paced. - ECHO obtained/cards consulted and no change in medical regimen and remains on metoprolol, xarelto - Continue Lasix - Encouraged CPAP (4) Fall: Suspected on admission 2nd to hypoglycemia in the 30s. No alcohol use reported/denied use - Had some focal strength deficits on admission with recent fall so brain MRI was obtained to rule out CVA and C-spine MRI ordered due to trauma - CT head negative - MRI brain negative (does have chronic microvascular changes) - MRI cervical spine neg for acute fracture/subluxation but does have spinal stenosis. Noting mild marrow edema reported likely degenerative - Lumbar spine neg acute fx, noting stenosis Plan Chronic / Stable Problems: - Factor V Leiden mutation: continue Xarelto - B12 deficiency: B12 low normal 203, IM replacement ordered x 3 and converted to/continued on 1000mcg PO daily CODE STATUS: Full code Notes For Next Care Provider Needs better diabetic control -- adjusted regimen while inpatient No driving until cleared by neurology -- filled out paperwork for DMV while inpatient Highly recommended patient goes to rehab after discharged but refused. Also refused to work on stairs with PT while here despite having multiple ROMI his home Medication Changes From Visit Started Keppra 500 mg BID Adjusted insulin -- now on Lantus 28 units daily and NovoLog 14 units TID with meals Started B12 supplement Admission HPI Per Admitting Provider Waylon ia 68yo M witha hx a T2DM presents with syncope, 1 episode of hypoglycemia 2 days ago, and now w. hyperglycemia, and fatigue. Recieved IV insulin 10u x2 in the ER + 1500cc NSS but remains hyperglycemic. Recommended for admission for syncope and BSG monitoring. Reports had a fall 2 days ago and having muscle cramps/spasms. No focal neurologic deficits. Patient also concerned for hypoglycemic to hyperglycemic swings and recommend for overnight monitoring and glycemic management. Waylon is seen at the bedside - REports frequent lows. Blood sugar dropped to 30 ~2 days ago. Was confused, shakey and got glucose from the paramedics and seemed to do OK after. Ate some peanut butter toast after to get sugar back up. REports low BSG is rare, less than once a month for him - Today reports he feels very shakey and his blood sugar has been high. Shakes are gone in the ER, but was worried he might have had an issue from the fall since his arm was termoring this morning. No sensation change. Does feel he has a significatn loss of strength in his left arm which is persistent. - Reports low blood sugars are rare for him - Takes 70/30 insulin 70units once daily. Takes this before lunch. Does not like to split his insulin up. Blood sugar usually 160s-180s. SOmetimes high ~300s. Usually has a 'a couple' highs per week no chest pain or chest pressure. No sweating. No lightheadedness of dizziness. Does get sweats with low sugars, but none currently. No recent illnesses. No fevers or chills. No abdominal pain. No headache No vision change Medical History: Reviewed Medications: Reviewed Surgical History: Reviewed Family history: Reviewed Allergies: Reviewed Social History: No tobacco use. Rare etoh use, denies recent alcohol use. Code Status: Full Code Discharge Exam General: No acute distress, nondiaphoretic. Class 3 obesity. Skin: The skin was without rashes, erythema, edema, or bruising. Cardiac: Regular rate and rhythm. Faint systolic murmur noted. Pulm: Clear to auscultation bilaterally without wheezes, rales or rhonchi. No respiratory distress. 97% on room air. Abdominal: Soft, nontender. Distended secondary to body habitus. Bowel sounds present. Neuro: A&O x3. No focal neurological deficits. Discharge Plan Discharge Items Patient Disposition: Home - Self-Care Reason For Visit: HYPERGLYCEMIA, WEAKNESS Discharge Diagnosis: Hypoglycemia Hyperglycemia Seizure Condition on Discharge: Fair Activity: Resume your previous activity Non-emergency contact: Primary Care Provider Call non-emergency contact if: you have any medication questions and your symptoms worsen Follow-up/Referrals: Joe Nevarez MD [Primary Care Provider] - 02/06/24 11:00 am (Follow-up in 1 week) Diet: Carb Consistent or DM2 Addtl Attending Provider Instructions: Mr. Dodson, You were admitted to the hospital after being found down by EMS with a blood sugar in the 30s. You also had a witnessed seizure on 01/17. You were seen by a neurologist and have been started on a medication to prevent further seizures. You have not had any further seizure-like activity since then. Your A1c was very elevated at 12.5%, which is an average blood sugar of 312. You were provided with diabetes education from our diabetic counselor. Upon discharge from the hospital: * Take Keppra 500 mg twice daily. This is to prevent seizures. * Do NOT drive due to the seizure until you are cleared by neurology to do so. A form has been completed with the Department of Motor Vehicles (DMV) informing them of your seizure. Once your neurologist has cleared you to drive again, they will notify the DMV to allow this again. * Use insulin glargine (Lantus) 28 units daily. This is your daily insulin coverage. * Use insulin aspart (NovoLog) 14 units with meals. This is your mealtime coverage. * Continue to use the continuous glucose monitor (Wireless Environment mohsen) that the family living educator set you up with. * Continue vitamin B12 supplementation daily. * Please notify your PCP of blood sugar levels frequently above 200 or below 70. * Follow-up with your PCP in 1 week. * Follow-up with neurology. Their office will call you with appointment details. Please return to the hospital if you experience any of the following: Another seizure, fever of 100.5 F or higher, confusion, shortness of breath, chest pain, persistent nausea with vomiting, lightheadedness, dizziness, passing out, or any other symptoms concerning for you. I wish you the best, Donna Cunningham PA-C Addtl Chip Mixing Machine Operator Provider Instructions: certified diabetes educator recommendations: Your hemoglobin A1c level was 12.5% on 12/31/2023. This blood test looks at your average blood sugar over the prior 2-3 months. An A1c level of 12.5% equals an average blood sugar of 312 over the prior 2-3 months. For most people with diabetes, this level should be below 8%, and for many much lower; however, this goal should be individualized for every person. Please share these results and your blood sugar levels with your provider for review. Please notify your provider of blood sugar levels frequently above 200 or below 70. If you have any questions, please call our diabetes office at [phone]. Take care!! Pending Studies at Discharge: No Stand-Alone Forms: [facility], Smoking Cessation Medications and DC Order Prescriptions: New levetiracetam [Keppra] 500 mg Tablet 500 mg PO BID Qty: 60 0RF cyanocobalamin (vitamin B-12) 500 mcg Tablet 500 mcg PO QAM Qty: 30 0RF insulin glargine [Lantus U-100 Insulin] 100 unit/mL Solution 28 unit subcut DAILY Qty: 10 0RF insulin aspart U-100 [Novolog U-100 Insulin aspart] 100 unit/mL solution 14 unit subcut TIDM Qty: 10 0RF Rx Instructions: Use 14 units with each meal (DME) insulin syringe-needle U-100 0.5 mL 31 gauge x 5/16" syringe See Rx Instructions .Route Qty: 100 0RF Rx Instructions: As directed Continued ergocalciferol (vitamin D2) 1,250 mcg (50,000 unit) capsule 50,000 unit PO Q7D@0900 Qty: 14 0RF Rx Instructions: OTC unable to verify (DME) blood-glucose meter [Accu-Chek Guide Me Glucose Mtr] Misc See Rx Instructions .Route Qty: 1 0RF Rx Instructions: As directed (DME) OneTouch Ultra Test Strip See Rx Instructions .Route Qty: 300 3RF Rx Instructions: TEST 3 TIMES DAILY; DX CODE E11.65 furosemide 80 mg tablet 80 mg PO QAM Qty: 90 3RF lisinopril 10 mg tablet 10 mg PO QAM Qty: 90 3RF metformin 1,000 mg tablet 1,000 mg PO BID Qty: 180 3RF (DME) lancets [Accu-Chek Softclix Lancets] Misc See Rx Instructions .Route Qty: 300 3RF Rx Instructions: test blood sugars three times daily (DME) insulin syringe-needle U-100 [BD Insulin Syringe Ultra-Fine] 1 mL 31 gauge x 5/16 syringe See Rx Instructions .ROUTE .MEDSUPPLY Qty: 300 3RF Rx Instructions: USE 3 TIMES DAILY; DX CODE- E11.49, E11.65 gabapentin 300 mg capsule 300 mg PO DAILY Qty: 30 2RF Rx Instructions: last filled 11/28 30 day supply Xarelto 20 mg tablet 20 mg PO DAILY Qty: 90 3RF Rx Instructions: 20 mg po daily. no fill history available acetaminophen 325 mg Tablet 650 mg PO Q6H PRN (Reason: pain) Qty: 30 0RF cephalexin 500 mg capsule 500 mg PO TID Qty: 30 3RF atorvastatin 20 mg tablet 20 mg PO UD Rx Instructions: 20mg po qam last filled 06/20/23 90 day supply #90 sildenafil 100 mg tablet 100 mg PO UD Rx Instructions: 100 mg po daily filled 10/01 6 day supply metoprolol tartrate 50 mg tablet 50 mg PO UD Rx Instructions: 50 mg po bid. no fill history available ketoconazole 2 % cream 1 applic topical UD Rx Instructions: 1 mohsen topical daily. no fill history available Apply to groin folds daily for 3 weeks for intertrigo Discontinued Novolin 70/30 U-100 Insulin 100 unit/mL (70-30) suspension 20 - 50 unit subcut TID Qty: 30 2RF Rx Instructions: last filled 11/19 20 day supply as directed before meals No Action (DME) lancets [OneTouch Delica Lancets] 30 gauge misc See Dose Instructions .ROUTE .MEDSUPPLY Qty: 25 0RF Dose Instruction: As directed Rx Instructions: As directed Krames/Other Patient Handouts: A1C, Levetiracetam Oral Tablet, Insulin Glargine Injectable Solution, Vitamin B12 (cyanocobalamin) Oral Tablet, Insulin Aspart, Human Injectable Solution, Long-Term Complications of Diabetes, High Blood Sugar (Hyperglycemia), Hypoglycemia (Low Blood Sugar), Managing Type 2 Diabetes, Insulin How To Use Where Inject, Types of Insulin, What Is Syncope, Vitamin and Mineral Supplements, Diabetes: Meal Planning, Diabetes Support, Insulin Shot Steps, ED Seizure New [facility] Adult Admission Data Admit Date/Time: 01/16/24 19:55 Attending Provider: Cherelle Zapata Admit Provider: Mau Ibarra Primary Care Provider: Joe Nevarez Other Providers: Mau Ibarra; Jesus Manuel Chapman; Reji García; [facility] Other Interventions: Discharge Summary Assessment (RN) Last Done: 01/24/24 17:01 Hospital Stay Data Consultations 01/16/24 18:46 ED Decision to Admit Stat 01/17/24 11:02 Consult Cardiology Routine 01/18/24 10:09 Consult Neurology Routine Diagnostic Imagining Performed 01/16/24 14:34 CT head/brain wo con Stat 01/17/24 00:00 MR brain wo con Routine MR cervical spine wo con Routine Pending Results Patient Have Any Pending Studies at Discharge: No Discharge Instructions Given to Patient (Per Discharging Provider) Landon Goyal were admitted to the hospital after being found down by EMS with a blood sugar in the 30s. You also had a witnessed seizure on 01/17. You were seen by a neurologist and have been started on a medication to prevent further seizures. You have not had any further seizure-like activity since then. Your A1c was very elevated at 12.5%, which is an average blood sugar of 312. You were provided with diabetes education from our diabetic counselor. Upon discharge from the hospital: * Take Keppra 500 mg twice daily. This is to prevent seizures. * Do NOT drive due to the seizure until you are cleared by neurology to do so. A form has been completed with the Department of Motor Vehicles (DMV) informing them of your seizure. Once your neurologist has cleared you to drive again, they will notify the DMV to allow this again. * Use insulin glargine (Lantus) 28 units daily. This is your daily insulin coverage. * Use insulin aspart (NovoLog) 14 units with meals. This is your mealtime coverage. * Continue to use the continuous glucose monitor (Polo mohsen) that the family living educator set you up with. * Continue vitamin B12 supplementation daily. * Please notify your PCP of blood sugar levels frequently above 200 or below 70. * Follow-up with your PCP in 1 week. * Follow-up with neurology. Their office will call you with appointment details. Please return to the hospital if you experience any of the following: Another seizure, fever of 100.5 F or higher, confusion, shortness of breath, chest pain, persistent nausea with vomiting, lightheadedness, dizziness, passing out, or any other symptoms concerning for you. I wish you the best, Dnona Cunningham PA-C Supervising Physician Co-Signing Physician Notes PA Supervision Note: I did not personally see or examine the patient today, but I verified all corona points of TIAN Cunningham's assessment and plan with the following exceptions/additions: None Total Time Total Time Spent Total Time Spent (In Minutes): Greater than 30 minutes spent completing this discharge process including direct patient care, medication reconciliation, documentation, review of labs and images, and coordination of care. Coding Level of Care Code 60450 INP/OBS DISCH >30 MIN Diagnoses Seizure-like activity R56.9 DM (diabetes mellitus), type 2, uncontrolled w/neurologic complication E11.49; E11.65 Atrial flutter I48.92 Fall W19.XXXA
--- NOTE | 2024-01-24 22:22 | Communication Note ---
Date of Service: January 24, 2024 Received messaging from nursing that patient was supposed to be discharged today though unable to reach family members. Tried to call all 3 contacts for patient. No answer from any family member. No way of leaving any voicemail. Will cancel DC order and will try to have him discharged tomorrow.
[2024-01-24] MEDS: INSULIN ASPART PER UNIT CHARGE SC ONE (23:56)
[2024-01-25 03:58] VITALS: O2SAT 97
[2024-01-25 07:38] VITALS: PULSE 60
[2024-01-25 07:50] VITALS: BP 150/72; RESP 18; TEMP 97.2
--- NOTE | 2024-01-25 09:05 | Discharge Summary ---
Discharge Summary Date of Service January 25, 2024 Principal Dx & Hospital Course #1 = Principal Diagnosis (1) Seizure-like activity: Reported prodromal sensation of left face tightness/tingling prior to episodes occurs, reported happening 2-3 days prior to admission, lasting 1-2 minutes and resolving. Was found down by EMS with blood sugar in 30s - Witnessed seizure AM 12/12 following EEG. WBC wnl/does not appear infection related - EEG reported normal by neurology, on consult - Continue Keppra 500mg BID (1g dosing was too sedating) - Follow-up with Neurology outpatient - Filled out DMV paperwork and navigator will fax out. Reminded patient he is not to drive until he is cleared to do so by neurology PT/OT recommend rehab -- patient was strongly encouraged to go to rehab, but continued to refuse rehab placement (2) DM (diabetes mellitus), type 2, uncontrolled w/neurologic complication: At baseline takes 70 units of 70/30 once daily (not ideal) with reported swings - A1c 12.5% in December 2023 - Had been seen by EMS with syncope reports BSG in 30s, unresponsive (patient reports not remembering episode, had been shaking/jerking -- see seizure activity above, possible 2nd to hypoglycemic event) - BSG 400s on admission - Pharmacy glycemic management/environmental educator consulted - Discharged with Lantus 28 units daily and NovoLog 14 units with meals - Recommend close follow-up with PCP to ensure better diabetic control (3) Atrial flutter: Hx of such, pacemaker in place for hx heart block - Interrogation ordered and had been in flutter - TSH wnl. EKG paced. - ECHO obtained/cards consulted and no change in medical regimen and remains on metoprolol, xarelto - Continue Lasix - Encouraged CPAP (4) Fall: Suspected on admission 2nd to hypoglycemia in the 30s. No alcohol use reported/denied use - Had some focal strength deficits on admission with recent fall so brain MRI was obtained to rule out CVA and C-spine MRI ordered due to trauma - CT head negative - MRI brain negative (does have chronic microvascular changes) - MRI cervical spine neg for acute fracture/subluxation but does have spinal stenosis. Noting mild marrow edema reported likely degenerative - Lumbar spine neg acute fx, noting stenosis Plan Chronic / Stable Problems: - Factor V Leiden mutation: continue Xarelto - B12 deficiency: B12 low normal 203, IM replacement ordered x 3 and converted to/continued on 1000mcg PO daily CODE STATUS: Full code Patient was supposed to go home yesterday, 01/24/24, but did not have a ride. He is still stable for discharge today. Notes For Next Care Provider Needs better diabetic control -- adjusted regimen while inpatient No driving until cleared by neurology -- filled out paperwork for DMV while inpatient Highly recommended patient goes to rehab after discharged but refused. Also refused to work on stairs with PT while here despite having multiple ROMI his home Medication Changes From Visit Started Keppra 500 mg BID Adjusted insulin -- now on Lantus 28 units daily and NovoLog 14 units TID with meals Started B12 supplement Admission HPI Per Admitting Provider Waylon nixon 68yo M witha hx a T2DM presents with syncope, 1 episode of hypoglycemia 2 days ago, and now w. hyperglycemia, and fatigue. Recieved IV insulin 10u x2 in the ER + 1500cc NSS but remains hyperglycemic. Recommended for admission for syncope and BSG monitoring. Reports had a fall 2 days ago and having muscle cramps/spasms. No focal n eurologic deficits. Patient also concerned for hypoglycemic to hyperglycemic swings and recommend for overnight monitoring and glycemic management. Waylon is seen at the bedside - REports frequent lows. Blood sugar dropped to 30 ~2 days ago. Was confused, shakey and got glucose from the paramedics and seemed to do OK after. Ate some peanut butter toast after to get sugar back up. REports low BSG is rare, less than once a month for him - Today reports he feels very shakey and his blood sugar has been high. Shakes are gone in the ER, but was worried he might have had an issue from the fall since his arm was termoring this morning. No sensation change. Does feel he has a significatn loss of strength in his left arm which is persistent. - Reports low blood sugars are rare for him - Takes 70/30 insulin 70units once daily. Takes this before lunch. Does not like to split his insulin up. Blood sugar usually 160s-180s. SOmetimes high ~300s. Usually has a 'a couple' highs per week no chest pain or chest pressure. No sweating. No lightheadedness of dizziness. Does get sweats with low sugars, but none currently. No recent illnesses. No fevers or chills. No abdominal pain. No headache No vision change Medical History: Reviewed Medications: Reviewed Surgical History: Reviewed Family history: Reviewed Allergies: Reviewed Social History: No tobacco use. Rare etoh use, denies recent alcohol use. Code Status: Full Code Discharge Exam General: No acute distress, nondiaphoretic. Class 3 obesity. Skin: The skin was without rashes, erythema, edema, or bruising. Cardiac: Regular rate and rhythm. Faint systolic murmur noted. Pulm: Clear to auscultation bilaterally without wheezes, rales or rhonchi. No respiratory distress. 97% on room air. Abdominal: Soft, nontender. Distended secondary to body habitus. Bowel sounds present. Neuro: A&O x3. No focal neurological deficits. Discharge Plan Discharge Items Patient Disposition: Home - Self-Care Reason For Visit: HYPERGLYCEMIA, WEAKNESS Discharge Diagnosis: Hypoglycemia Hyperglycemia Seizure Condition on Discharge: Fair Activity: Resume your previous activity Non-emergency contact: Primary Care Provider Call non-emergency contact if: you have any medication questions and your symptoms worsen Follow-up/Referrals: Joe Nevarez MD [Primary Care Provider] - 02/06/24 11:00 am (Follow-up in 1 week) Diet: Carb Consistent or DM2 Addtl Attending Provider Instructions: Mr. Dodson, You were admitted to the hospital after being found down by EMS with a blood sugar in the 30s. You also had a witnessed seizure on 01/17. You were seen by a neurologist and have been started on a medication to prevent further seizures. You have not had any further seizure-like activity since then. Your A1c was very elevated at 12.5%, which is an average blood sugar of 312. You were provided with diabetes education from our diabetic counselor. Upon discharge from the hospital: * Take Keppra 500 mg twice daily. This is to prevent seizures. * Do NOT drive due to the seizure until you are cleared by neurology to do so. A form has been completed with the Department of Motor Vehicles (DMV) informing them of your seizure. Once your neurologist has cleared you to drive again, they will notify the DMV to allow this again. * Use insulin glargine (Lantus) 28 units daily. This is your daily insulin coverage. * Use insulin aspart (NovoLog) 14 units with meals. This is your mealtime coverage. * Continue to use the continuous glucose monitor (Polo mohsen) that the environmental educator set you up with. * Continue vitamin B12 supplementation daily. * Please notify your PCP of blood sugar levels frequently above 200 or below 70. * Follow-up with your PCP in 1 week. * Follow-up with neurology. Their office will call you with appointment details. Please return to the hospital if you experience any of the following: Another seizure, fever of 100.5 F or higher, confusion, shortness of breath, chest pain, persistent nausea with vomiting, lightheadedness, dizziness, passing out, or any other symptoms concerning for you. I wish you the best, Donna Cunningham PA-C Addtl Emergency Department Technician Provider Instructions: agricultural extension educator recommendations: Your hemoglobin A1c level was 12.5% on 12/31/2023. This blood test looks at your average blood sugar over the prior 2-3 months. An A1c level of 12.5% equals an average blood sugar of 312 over the prior 2-3 months. For most people with diabetes, this level should be below 8%, and for many much lower; however, this goal should be individualized for every person. Please share these results and your blood sugar levels with your provider for review. Please notify your provider of blood sugar levels frequently above 200 or below 70. If you have any questions, please call our diabetes office at [phone]. Take care!! Pending Studies at Discharge: No Stand-Alone Forms: My [facility] [employer], Smoking Cessation Medications and DC Order Prescriptions: New levetiracetam [Keppra] 500 mg Tablet 500 mg PO BID Qty: 60 0RF cyanocobalamin (vitamin B-12) 500 mcg Tablet 500 mcg PO QAM Qty: 30 0RF insulin glargine [Lantus U-100 Insulin] 100 unit/mL Solution 28 unit subcut DAILY Qty: 10 0RF insulin aspart U-100 [Novolog U-100 Insulin aspart] 100 unit/mL solution 14 unit subcut TIDM Qty: 10 0RF Rx Instructions: Use 14 units with each meal (DME) insulin syringe-needle U-100 0.5 mL 31 gauge x 5/16" syringe See Rx Instructions .Route Qty: 100 0RF Rx Instructions: As directed Continued ergocalciferol (vitamin D2) 1,250 mcg (50,000 unit) capsule 50,000 unit PO Q7D@0900 Qty: 14 0RF Rx Instructions: OTC unable to verify (DME) blood-glucose meter [Accu-Chek Guide Me Glucose Mtr] Misc See Rx Instructions .Route Qty: 1 0RF Rx Instructions: As directed (DME) OneTouch Ultra Test Strip See Rx Instructions .Route Qty: 300 3RF Rx Instructions: TEST 3 TIMES DAILY; DX CODE E11.65 furosemide 80 mg tablet 80 mg PO QAM Qty: 90 3RF lisinopril 10 mg tablet 10 mg PO QAM Qty: 90 3RF metformin 1,000 mg tablet 1,000 mg PO BID Qty: 180 3RF (DME) lancets [Accu-Chek Softclix Lancets] Misc See Rx Instructions .Route Qty: 300 3RF Rx Instructions: test blood sugars three times daily (DME) insulin syringe-needle U-100 [BD Insulin Syringe Ultra-Fine] 1 mL 31 gauge x 5/16 syringe See Rx Instructions .ROUTE .MEDSUPPLY Qty: 300 3RF Rx Instructions: USE 3 TIMES DAILY; DX CODE- E11.49, E11.65 gabapentin 300 mg capsule 300 mg PO DAILY Qty: 30 2RF Rx Instructions: last filled 11/28 30 day supply Xarelto 20 mg tablet 20 mg PO DAILY Qty: 90 3RF Rx Instructions: 20 mg po daily. no fill history available acetaminophen 325 mg Tablet 650 mg PO Q6H PRN (Reason: pain) Qty: 30 0RF cephalexin 500 mg capsule 500 mg PO TID Qty: 30 3RF atorvastatin 20 mg tablet 20 mg PO UD Rx Instructions: 20mg po qam last filled 06/20/23 90 day supply #90 sildenafil 100 mg tablet 100 mg PO UD Rx Instructions: 100 mg po daily filled 10/01 6 day supply metoprolol tartrate 50 mg tablet 50 mg PO UD Rx Instructions: 50 mg po bid. no fill history available ketoconazole 2 % cream 1 applic topical UD Rx Instructions: 1 mohsen topical daily. no fill history available Apply to groin folds daily for 3 weeks for intertrigo Discontinued Novolin 70/30 U-100 Insulin 100 unit/mL (70-30) suspension 20 - 50 unit subcut TID Qty: 30 2RF Rx Instructions: last filled 11/19 20 day supply as directed before meals No Action (DME) lancets [OneTouch Delica Lancets] 30 gauge misc See Dose Instructions .ROUTE .MEDSUPPLY Qty: 25 0RF Dose Instruction: As directed Rx Instructions: As directed Discharge Orders: Discharge Order (Routine); Ordered 01/25/24 Ordered By: Donna Jones/Other Patient Handouts: A1C, Levetiracetam Oral Tablet, Insulin Glargine Injectable Solution, Vitamin B12 (cyanocobalamin) Oral Tablet, Insulin Aspart, Human Injectable Solution, Long-Term Complications of Diabetes, High Blood Sugar (Hyperglycemia), Hypoglycemia (Low Blood Sugar), Managing Type 2 Diabetes, Insulin How To Use Where Inject, Types of Insulin, What Is Syncope, Vitamin and Mineral Supplements, Diabetes: Meal Planning, Diabetes Support, Insulin Shot Steps, [place] [facility] [place] Admit Date/Time: 01/16/24 19:55 Attending Provider: Cherelle Zapata Admit Provider: Mau Ibarra Primary Care Provider: Joe Nevarez Other Providers: Mau Ibarra; Jesus Manuel Chapman; Reji García; [facility] Other Interventions: Discharge Summary Assessment (RN) Last Done: 01/24/24 17:01 Hospital Stay Data Consultations 01/16/24 18:46 ED Decision to Admit Stat 01/17/24 11:02 Consult Cardiology Routine 01/18/24 10:09 Consult Neurology Routine Diagnostic Imagining Performed 01/16/24 14:34 CT head/brain wo con Stat 01/17/24 00:00 MR brain wo con Routine MR cervical spine wo con Routine Pending Results Patient Have Any Pending Studies at Discharge: No Discharge Instructions Given to Patient (Per Discharging Provider) Mr. Dodson, Landon were admitted to the hospital after being found down by EMS with a blood sugar in the 30s. You also had a witnessed seizure on 01/17. You were seen by a neurologist and have been started on a medication to prevent further seizures. You have not had any further seizure-like activity since then. Your A1c was very elevated at 12.5%, which is an average blood sugar of 312. You were provided with diabetes education from our diabetic counselor. Upon discharge from the hospital: * Take Keppra 500 mg twice daily. This is to prevent seizures. * Do NOT drive due to the seizure until you are cleared by neurology to do so. A form has been completed with the Department of Motor Vehicles (DMV) informing them of your seizure. Once your neurologist has cleared you to drive again, they will notify the DMV to allow this again. * Use insulin glargine (Lantus) 28 units daily. This is your daily insulin coverage. * Use insulin aspart (NovoLog) 14 units with meals. This is your mealtime coverage. * Continue to use the continuous glucose monitor (Polo mohsen) that the environmental educator set you up with. * Continue vitamin B12 supplementation daily. * Please notify your PCP of blood sugar levels frequently above 200 or below 70. * Follow-up with your PCP in 1 week. * Follow-up with neurology. Their office will call you with appointment details. Please return to the hospital if you experience any of the following: Another seizure, fever of 100.5 F or higher, confusion, shortness of breath, chest pain, persistent nausea with vomiting, lightheadedness, dizziness, passing out, or any other symptoms concerning for you. I wish you the best, Donna Cunningham PA-C Total Time Total Time Spent Total Time Spent (In Minutes): Greater than 30 minutes spent completing this discharge process including direct patient care, medication reconciliation, documentation, review of labs and images, and coordination of care. Coding Level of Care Code 16786 INP/OBS DISCH >30 MIN Diagnoses Seizure-like activity R56.9 DM (diabetes mellitus), type 2, uncontrolled w/neurologic complication E11.49; E11.65 Atrial flutter I48.92 Fall W19.XXXA
[2024-01-25] MEDS: LANTUS PER UNIT CHARGE SQ SCH (09:14)
== END 2024-01-25 13:52 | disposition home or self-care (01) | DRG 638 ==
LOC: ED 13:47 → SUATTDRO 19:55 → 3N 19:55 → 2N 01-17 08:42

== ENCOUNTER 2024-12-01 05:01 | Inpatient (IN) ==
[2024-12-01] MEDS: ONDANSETRON INJ 2 MG/ML 2 ML VIAL IV STA (05:26)
[2024-12-01] MEDS: MoRPHine SULFATE 4 MG/ML 1 ML CARP\\VIAL IV STA (05:26)
[2024-12-01] MEDS: SODIUM CHLORIDE 0.9% 500 ML IV STA (05:27)
[2024-12-01 05:29] LABS: Hematocrit (blood only) 45.3 % (42.0-52.0); Hemoglobin 15.0 g/dl (14.0-18.0); Immature Granulocytes # (auto) 0.09 K/uL (0.01-0.20); Immature Granulocytes % (auto) 0.8 %; Mean Corpuscular Hemoglobin 29.2 pg (25.0-34.0); Mean Corpuscular Volume 88.1 fL (80.0-100.0); Platelet Count 303 K/uL (130-400); RDW Standard Deviation 39.8 fL (36.4-46.3); Red Blood Count 5.14 M/uL (4.70-6.10); White Blood Count 11.11 K/ul (4.8-10.8)
[2024-12-01 05:58] LABS: Alanine Aminotransferase 12.0 U/L (7-52); Albumin Globulin Ratio 0.8 (0.9-2); Albumin Level 3.4 gm/dl (3.4-5.0); Alkaline Phosphatase 103.0 U/L (34-104); Anion Gap 9.0 (3-11); Bilirubin,Total 0.6 mg/dl (0.2-1.0); Blood Urea Nitrogen 15.0 mg/dl (6-23); Calcium 9.2 mg/dl (8.6-10.3); Carbon Dioxide 28.0 mmol/L (21-32); Chloride 93.0 mmol/L (98-107); Creatinine Clr Calc Pharmacy 97.9 ml/min; Globulin 4.2 gm/dl (2.5-4.0); Glucose 600.0 mg/dl (70-99(Fasting)); Lipase 44.0 U/L (11-82); Potassium 4.2 mmol/L (3.5-5.1); Sodium 130.0 mmol/L (136-145); Total Protein 7.6 gm/dl (6.0-8.3)
[2024-12-01] MEDS ORDERED: VANCOMYCIN CONSULT ACTIVE PRN (06:12)
[2024-12-01] MEDS: LANTUS PER UNIT CHARGE SQ ONE (06:22)
[2024-12-01] MEDS: PIPERACILLIN/TAZOBACTAM 4.5 GM/100 ML BAG IV ONE (06:22)
--- NOTE | 2024-12-01 06:29 | XRay Report ---
EXAM: XR foot LT min 3V routine CLINICAL HISTORY: toe ulcers/blisters TECHNIQUE: Radiograph of foot was acquired. COMPARISON: none FINDINGS: Calcaneal spur noted Dystrophic calcifications are seen adjacent to calcaneal spur in ventral aspect of foot Vascular calcifications are seen within soft tissue Increased soft tissue density in ventral aspect of foot at first tarometatarsal joint. There is no evidence of acute fracture, dislocation or osseous lesion. The sesamoid complex is well approximated. The joint spaces appear preserved. Tarsal bones are well aligned. Rest of the soft tissues are unremarkable. IMPRESSION: No acute osseous abnormality. Dystrophic calcifications are seen adjacent to calcaneal spur in ventral aspect of foot Vascular calcifications are seen within soft tissue- Likely atherosclerotic changes Increased soft tissue density in ventral aspect of foot at first metatarso-phalangeal joint.could represent soft tissue edema- suggest correlation with clinical examination. Electronically signed by Tom Trejo 12-01-2024 06:28 AM
[2024-12-01 06:33] LABS: INR 1.0 (0.9-1.1); Prothrombin Time 10.6 Seconds (9.0-12.0)
--- NOTE | 2024-12-01 06:33 | Emergency Department Note ---
Impression & Plan Cellulitis, Chronic hyperglycemia, Pseudohyponatremia ED Provider Note NAME: ALEXIS LAMA AGE: 69 SEX: M : 1955 ARRIVES VIA: Walk-In INFORMANT: Patient, ED PROVIDER(S): Graham Guadarrama DO CHIEF COMPLAINT: Blisters HPI: This is a 69-year-old male with the PMHx of IDDM2, CHF, PPM, obesity, CHRISTIANO, GERD, HTN, HLD, pAfib, PVD and BPH presenting to [facility] for further evaluation of lower extremity wounds. Patient states that he noticed some swelling and blistering of his L big toe a few days ago. He states that this has seemed to progress. He now reports some pain but he notes his neuropathy in his feet. He denies injury or wearing wet shoes. He has not been taking his insulin. He ate some candy for breakfast prior to coming into the ED. They deny fever or chills. No cough or congestion. Denies chest pain or palpitations. No shortness of breath. They deny abdominal pain, nausea and vomiting. No urinary complaints. No recent changes in bowel movements. Patient denies recent changes in medications or OTC supplements. Patient offers no other complaints, today. ADDITIONAL HISTORY OBTAINED: Per HPI Chronic Medical/Social Conditions Affecting Care: Per HPI PAST MEDICAL HISTORY: See Below PAST SURGICAL HISTORY: See Below FAMILY HISTORY: See Below SOCIAL HISTORY: See Below HOME MEDICATIONS: See Below ALLERGIES: See Below VITALS: See Below PHYSICAL EXAMINATION: GENERAL: Sitting up in bed, alert, well appearing, well nourished, no distress, non-toxic EYE EXAM: normal conjunctiva. PERRL and EOM's grossly intact. OROPHARYNX: no exudate, no erythema, lips, buccal mucosa, and tongue normal and mucous membranes are moist NECK: supple, no nuchal rigidity, no adenopathy, non-tender LUNGS: Clear to auscultation. Normal chest wall mechanics HEART: no murmurs, regular rate, regular rhythm ABDOMEN: abdomen soft, non-tender, no masses, no rebound or guarding. BACK: Back is symmetrical on inspection and there is no deformity, no midline tenderness, no CVA tenderness. SKIN: no rashes and no bruising UPPER EXTREMITIES: upper extremities are grossly normal. LOWER EXTREMITIES: No pitting edema. Significant swelling of the L foot with blistering and likely developing necrotic tissues of the first three digits. NVI with brisk capillary refill. Sharp demarcation of erythema over the dorsum of the foot. NEURO EXAM: Normal sensorium, GCS 15, normal speech, no gross weakness of arms, no gross weakness of legs. MEDICAL DECISION MAKING: Differential diagnoses includes but not limited to diabetic ulcer, osteomyelitis, necrotizing fasciitis, soft tissue abscess, cellulitis, dry gangrene, electrolyte derangements, dehydration, HHS, DKA, poorly controlled type 2 diabetes In summary, this is a 69 year old male who presented with foot soft tissue changes. Differential as above. Nursing notes and pertinent past medical records reviewed. Vital signs reviewed and the patient is afebrile and HDS. History and presentation revealed ongoing over the last two days in the setting of poorly controlled diabetes. Physical examination revealed as above. As a result of my initial evaluation, plan for labs, imaging and IVFR/Abx. Slightly reduced dose of his long acting insulin ordered as glucose >600. He reported this as 50 units of lantus but review of medications show anywhere from 20-30s. He appears hypovolemic and will continue IVFR. He reported improvement in pain from morphine. Vancomycin and Zosyn chosen to cover for soft tissue infection and possible OM. Diagnostics interpreted by me include cardiac monitoring as listed below: -Cardiac Monitoring: An order was placed for continuous cardiac monitoring. The monitor shows a rate of 60-70s with regular rhythm. Patient completed laboratory studies and imaging. Results independently interpreted by me are minimal leukocytosis. There is elevation of ESR and CRP. Pseudohyponatremia in the setting of hyperglycemia. No significant anion gap acidosis present. The patient was managed with IV fluid resuscitation and broad-spectrum antibiotics. IV Zosyn and vancomycin were chosen as the patient has an allergy to cephalosporins. There would be concerns for cellulitis. This could just be chronic wounds in the setting of venous stasis and diabetic disease. We will proceed with plain films as well as CT imaging. CT imaging showed evidence of cellulitis. There is no dalton evidence of osteomyelitis at this time. Patient may benefit from an MRI as an inpatient. Patient's diabetes is significantly poorly controlled. He was given 30 units of long-acting insulin as well as 5 units of rapid acting insulin. Patient had improvement in glucose on recheck. POC glucose was 457. Do feel it is reasonable to admit this patient for close monitoring on antibiotics with possible further advanced imaging. Patient will need significant wound care while in the hospital. He will need further evaluation and management of his poorly controlled diabetes. Ultimately, the decision was made to admit the patient for soft tissue changes with concerns for cellulitis in the setting of poorly controlled diabetes. I discussed the case with the hospitalist service via telephone/TigerText and they are agreeable to admit the patient to their services. Based on the above, including the patient's age, coexisting illnesses, labs, imaging, and exam findings the decision to treat as an inpatient. I discussed the patient with the hospitalist team who recommended admission to their services. They received the medications, treatments, interventions indicated above and their condition remained guarded. I discussed my findings with the patient and their family and they understand and agree with the treatment plan. All patient / family questions were answered to their satisfaction. Consults/Care Managements Discussions: Per [facility] ER treatment provided: See above Procedures:none Critical Care: None The chart was completed utilizing Edutor Speech voice recognition software. Grammatical errors, random word insertions, pronoun errors, and incomplete sentences are an occasional consequence of this system due to software limitations, ambient noise, and hardware issues. Any formal questions or concerns about the content, text, or information contained within the body of this dictation should be directly addressed to the physician for clarification. Past Med/Surg History Problem List (Updated 12/04/24 @ 11:38 by Graham Guadarrama DO) Pseudohyponatremia (Acute) Chronic hyperglycemia (Acute) Cellulitis (Acute) Peripheral arterial disease Cellulitis of left foot Chronic ulcer of left foot limited to breakdown of skin Other specified peripheral vascular diseases Tibial artery occlusion, left Wound, open, foot with complication Erectile dysfunction BPH w urinary obs/LUTS Syncope Seizure-like activity B12 deficiency Atrial flutter Fall Hyperglycemia Multiple closed fractures of cervical vertebrae (Acute) DM (diabetes mellitus), type 2, uncontrolled w/neurologic complication (Acute) Factor V Leiden mutation (Acute) on warfarin daily Fatty liver (Chronic) ? 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) Morbid obesity (Chronic) CHRISTIANO (obstructive sleep apnea) (Acute) cpap Vitamin D deficiency (Chronic) Chronic anticoagulation Diabetic neuropathy (Chronic) Edema (Acute) Ambulatory dysfunction Status post placement of cardiac pacemaker (2021) Dual-chamber [employer] [address]ette DR SOLOMON SureScan Anemia Diastolic congestive heart failure Uncontrolled type 2 diabetes mellitus Loss of protective sensation of skin of foot Non-proliferative diabetic retinopathy, both eyes Vitreous hemorrhage Medical History Hypothermia Fracture of cervical vertebra, C6 C5 cervical fracture C2 cervical fracture Status post fall Acute respiratory failure with hypoxia Alcohol intoxication History of DVT (deep vein thrombosis) Complete heart block Hives Supratherapeutic INR On anticoagulant therapy warfarin daily Bradycardia Hyperglobulinemia DVT, lower extremity ? pt denies Surgical History Status post appendectomy History of colonoscopy History of wisdom tooth extraction History of tooth extraction S/P tonsillectomy Family History Father Coronary heart disease Myocardial infarction Mother COPD (chronic obstructive pulmonary disease) Stroke Family history of diabetes mellitus Diabetes Brother Prostate cancer Coronary heart disease Grandfather (Paternal) Family history of diabetes mellitus Grandmother (Paternal) Family history of diabetes mellitus Other No family history of adverse response to anesthesia Denies family history of Ovarian cancer Breast cancer Colorectal cancer Social History Smoking Status: Never smoker Tobacco Type: Smokeless Tobacco (Dip or Chew) Second Hand Exposure: No; Do You Dip or Chew Tobacco: Yes; Hx Alcohol Use: No Hx Substance Use: No Preferred Language: Slovak Communication Ability: Effective Visual Impairment: Limited Hearing Ability: Normal 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 Required: No Beliefs That Will Affect Care: None marital status: Life Partner Current Living Situation: Significant Other Current Living Situation Comment: Lives with sister current occupational status: retired and disabled current occupation: [employer] Feels Safe at Home: Yes Childhood Exposure to Second-Hand Smoke: No Diet: diabetic caffeine: Yes Dental Care, Regularly: No Physical Activity Frequency: Does not Exercise Seatbelt Use: always Assistive Devices: Walker Allergies Allergies Allergy/AdvReac Type Severity Reaction Status Date / Time ceftriaxone Allergy Severe Hives Verified 09/12/24 14:52 Sulfa (Sulfonamide Allergy Intermediate HIVES-ITCHY Verified 09/12/24 14:52 Antibiotics) RASH Home Meds Home Medications Medication Instructions Recorded Confirmed ketoconazole 2 % topical cream 1 applic topical UD 01/16/24 09/12/24 metoprolol tartrate 50 mg tablet 50 mg PO UD 01/16/24 09/12/24 Previous Rx's Medication Instructions Recorded acetaminophen 325 mg tablet 650 mg (2 x 325 mg) PO Q6H PRN 02/18/21 pain #30 tabs rivaroxaban 20 mg tablet (Xarelto) 20 mg PO DAILY #90 tabs 03/24/21 ergocalciferol (vitamin D2) 1,250 50,000 unit PO Q7D@0900 #14 caps 06/21/21 mcg (50,000 unit) capsule lancets 30 gauge ([facility]25 ea 04/27/22 Lancets) cyanocobalamin (vitamin B-12) 500 500 mcg PO QAM #30 tabs 01/24/24 mcg tablet levetiracetam 500 mg tablet 500 mg PO BID #60 tabs 01/24/24 (Keppra) mupirocin calcium 2 % topical cream 1 applic topical BID #15 grams 02/29/24 furosemide 80 mg tablet 80 mg PO QAM #90 tabs 03/27/24 metformin 1,000 mg tablet 1,000 mg PO BID #180 tabs 03/27/24 lisinopril 10 mg tablet 10 mg PO QAM #90 tabs 04/09/24 blood sugar diagnostic ([facility] ea 06/20/24 Ultra Test strips) blood-glucose meter (Accu-Chek #1 ea 06/20/24 Guide Me Glucose Meter) insulin syringe-needle U-100 0.5 #100 ea 06/20/24 mL 31 gauge x 5/16" insulin syringe-needle U-100 1 mL #300 ea 07/15/24 31 gauge x 5/16" atorvastatin 20 mg tablet 20 mg PO UD 90 days #90 tabs 07/31/24 clotrimazole 1 % topical cream 1 applic topical BID #30 grams 09/12/24 pen needle, diabetic 31 gauge x #200 ea 09/16/24 1/4" (Comfort EZ Pen [place]) insulin glargine 100 unit/mL (3 50 unit (0.5 mL) subcut QAM #30 mL 09/30/24 mL) subcutaneous pen (Lantus Solostar U-100 Insulin) insulin aspart U-100 100 unit/mL 17 unit (0.17 mL) subcut TID #30 mL 11/07/24 (3 mL) subcutaneous pen (Novolog FlexPen U-100 Insulin aspart) tadalafil 20 mg tablet 20 mg PO DAILY PRN sexual activity 11/14/24 #30 tabs tamsulosin 0.4 mg capsule 0.4 mg PO DAILY #30 caps 11/14/24 fluconazole 200 mg tablet 200 mg PO DAILY #7 tabs 11/15/24 lancets (Accu-Chek Softclix #300 ea 11/26/24 Lancets) lancing device with lancets kit #1 ea 11/26/24 (Accu-Chek Softclix Lancing Device+Lancets kit) Results & Data (ED) Vital Signs Vital Signs - 24 hr 12/01/24 05:02 12/01/24 05:12 12/01/24 05:21 Temperature 36.4 C L Temperature Source Oral Pulse Rate 69 62 Pulse Rate [Right Finger] 61 Pulse Rhythm Regular Pulse Rhythm [Right Finger] Regular Respiratory Rate 16 16 Respiratory Effort / Characteristics Non-Labored Respiratory Depth Normal Blood Pressure 113/60 Blood Pressure [Right Arm] 144/66 H Blood Pressure Mean 77 Blood Pressure Mean [Right Arm] 92 Pulse Oximetry 96 99 Oxygen Delivery Method Room Air Room Air Room Air Sepsis Recent Fever Within 48 Hours No Sepsis New/Unexplained Change in Mental Status No Sepsis Action Taken by Nursing No Action Required 12/01/24 05:28 12/01/24 06:02 12/01/24 07:00 Temperature Temperature Source Pulse Rate 60 Pulse Rate [Right Finger] 60 60 Pulse Rhythm Pulse Rhythm [Right Finger] Regular Regular Respiratory Rate 16 20 Respiratory Effort / Characteristics Non-Labored Non-Labored Spontaneous Respiratory Depth Normal Normal Blood Pressure Blood Pressure [Right Arm] 123/67 148/75 H Blood Pressure Mean Blood Pressure Mean [Right Arm] 85 99 Pulse Oximetry 100 96 Oxygen Delivery Method Room Air Room Air Sepsis Recent Fever Within 48 Hours Sepsis New/Unexplained Change in Mental Status Sepsis Action Taken by Nursing Laboratory Data 12/03/24 09:03 12/03/24 09:03 Lab Results 12/01/24 12/01/24 12/01/24 Range/Units 05:14 05:18 08:13 WBC 11.11 H (4.8-10.8) K/ul RBC 5.14 (4.70-6.10) M/uL Hgb 15.0 (14.0-18.0) g/dl Hct 45.3 (42.0-52.0) % MCV 88.1 (80.0-100.0) fL MCH 29.2 (25.0-34.0) pg MCHC 33.1 (32.0-36.0) g/dL RDW Std Deviation 39.8 (36.4-46.3) fL RDW Coeff of Morena 12.3 (11.5-14.5) % Plt Count 303 (130-400) K/uL MPV 11.2 (9.4-12.4) fL Immature Gran % (Auto) 0.8 % Neut % (Auto) 82.6 % Lymph % (Auto) 9.6 % [place] % (Auto) 6.2 % Eos % (Auto) 0.3 % Baso % (Auto) 0.5 % Neut # (Auto) 9.17 H (1.40-6.50) K/uL Lymph # (Auto) 1.07 L (1.20-3.40) K/uL [place] # (Auto) 0.69 H (0.11-0.59) K/uL Eos # (Auto) 0.03 (0.00-0.50) K/uL Baso # (Auto) 0.06 (0.00-0.20) K/uL Immature Gran # (Auto) 0.09 (0.01-0.20) K/uL ESR 54 H (0-20) mm/hr PT 10.6 (9.0-12.0) Seconds INR 1.0 (0.9-1.1) Sodium 130 L (136-145) mmol/L Potassium 4.2 (3.5-5.1) mmol/L Chloride 93 L (98-107) mmol/L Carbon Dioxide 28 (21-32) mmol/L Anion Gap 9 (3-11) BUN 15 (6-23) mg/dl Creatinine 0.88 (0.6-1.4) mg/dl Est Cr Clr Drug Dosing 97.9 ml/min eGFR 93.66 BUN/Creatinine Ratio 17.0 (10-20) Glucose 600 H* (70-99(Fasting)) mg/dl POC Glucose 457 H* (70-99) mg/dl Estimat Average Glucose 346 mg/dl Hemoglobin A1c 13.7 H (4.5-5.6) % Calcium 9.2 (8.6-10.3) mg/dl Total Bilirubin 0.6 (0.2-1.0) mg/dl AST 18 (13-39) U/L ALT 12 (7-52) U/L Alkaline Phosphatase 103 (34-104) U/L C-Reactive Protein 0.65 H (0-0.5) mg/dl Total Protein 7.6 (6.0-8.3) gm/dl Albumin 3.4 (3.4-5.0) gm/dl Globulin 4.2 H (2.5-4.0) gm/dl Albumin/Globulin Ratio 0.8 L (0.9-2) Lipase 44 (11-82) U/L Procalcitonin 0.03 (0-0.5) ng/ml Administered Medications Acetaminophen (Acetaminophen 325 Mg Tab) 650 mg PO Q6H PRN PRN Reason: pain Stop: 12/31/24 11:14 Last Admin: 12/01/24 17:42 Dose: 650 mg Documented By: CHANCE Aspirin (Aspirin 81 Mg Ectab) 81 mg PO QAM [facility] Stop: 01/01/25 08:59 Last Admin: 12/04/24 08:57 Dose: 81 mg Documented By: Admin: 12/03/24 16:51 Dose: 81 mg Documented By: Admin: 12/02/24 08:47 Dose: 81 mg Documented By: JANNIE Atorvastatin Calcium (Atorvastatin 40 Mg Tab) 80 mg PO DAILY [facility] Stop: 01/02/25 08:59 Last Admin: 12/04/24 08:57 Dose: 80 mg Documented By: Admin: 12/03/24 16:52 Dose: 80 mg Documented By: TB Cyanocobalamin (Cyanocobalamin (B-12) 500 Mcg Tablet) 1,000 mcg PO QAM [facility] Stop: 01/01/25 08:59 Last Admin: 12/04/24 08:57 Dose: 1,000 mcg Documented By: Admin: 12/03/24 16:53 Dose: 1,000 mcg Documented By: Admin: 12/02/24 08:47 Dose: 1,000 mcg Documented By: JANNIE Ergocalciferol (Ergocalciferol 1250 Mcg (50,000 Units) Cap) 1,250 mcg PO Q7D@0900 [facility] Stop: 12/31/24 11:14 Last Admin: 12/01/24 15:09 Dose: 1,250 mcg Documented By: CHANCE Furosemide (Furosemide 80 Mg Tab) 80 mg PO QAM [facility] Stop: 12/31/24 11:29 Last Admin: 12/04/24 08:57 Dose: 80 mg Documented By: Admin: 12/03/24 16:52 Dose: 80 mg Documented By: Admin: 12/02/24 08:47 Dose: 80 mg Documented By: Admin: 12/01/24 15:09 Dose: 80 mg Documented By: CHANCE Cefazolin Sodium (Ancef 2000mg) 2,000 mg in 15 mls @ 3.75 mls/min IV Q8H [facility] Stop: 12/08/24 11:44 Last Admin: 12/04/24 06:27 Dose: 3.75 mls/min Documented By: Admin: 12/03/24 21:55 Dose: 3.75 mls/min Documented By: Admin: 12/03/24 17:03 Dose: 3.75 mls/min Documented By: Admin: 12/03/24 06:07 Dose: 3.75 mls/min Documented By: MLDannie Admin: 12/02/24 22:34 Dose: 3.75 mls/min Documented By: Admin: 12/02/24 15:45 Dose: 3.75 mls/min Documented By: Admin: 12/02/24 06:45 Dose: 3.75 mls/min Documented By: MLDannie Admin: 12/01/24 22:34 Dose: 3.75 mls/min Documented By: Admin: 12/01/24 12:03 Dose: 3.75 mls/min Documented By: samm Insulin Aspart (Insulin Aspart Per Unit Charge) 0 units SC ACHS [facility] Stop: 12/31/24 11:29 Last Admin: 12/04/24 08:57 Dose: 5 units Documented By: JOSUÉ Co-signed By: DEVANG Admin: 12/03/24 21:50 Dose: 3 units Documented By: DOROTHY Co-signed By: MAL Admin: 12/03/24 18:06 Dose: 3 units Documented By: ROLANDO Co-signed By: NICOLETTE Admin: 12/03/24 15:57 Dose: Not Given Documented By: Admin: 12/03/24 07:29 Dose: Not Given Documented By: ROLANDO Co-signed By: MICHELINE Admin: 12/02/24 20:33 Dose: Not Given Documented By: Admin: 12/02/24 17:39 Dose: Not Given Documented By: Admin: 12/02/24 12:27 Dose: 2 units Documented By: JANNIE Co-signed By: DTT Admin: 12/02/24 08:53 Dose: 5 units Documented By: JANNIE Co-signed By: DTT Admin: 12/01/24 22:12 Dose: Not Given Documented By: MLDannie Admin: 12/01/24 17:43 Dose: 11 units Documented By: CHANCE Co-signed By: BERE Admin: 12/01/24 15:17 Dose: 10 units Documented By: CHANCE Co-signed By: BERE Insulin Glargine (Lantus Per Unit Charge) 10 units SQ BID [facility] Stop: 12/31/24 20:59 Last Admin: 12/04/24 08:58 Dose: 10 units Documented By: JOSUÉ Co-signed By: DEVANG Admin: 12/03/24 21:50 Dose: 10 units Documented By: DOROTHY Co-signed By: MAL Admin: 12/03/24 15:39 Dose: Not Given Documented By: Admin: 12/02/24 20:39 Dose: Not Given Documented By: Admin: 12/02/24 08:53 Dose: 10 units Documented By: JANNIE Co-signed By: DTT Admin: 12/01/24 22:12 Dose: Not Given Documented By: DOROTHY Levetiracetam (Levetiracetam 500 Mg Tab) 500 mg PO BID [facility] Stop: 12/31/24 11:29 Last Admin: 12/04/24 08:58 Dose: 500 mg Documented By: Admin: 12/03/24 20:35 Dose: Not Given Documented By: Admin: 12/03/24 15:39 Dose: Not Given Documented By: Admin: 12/02/24 20:43 Dose: 500 mg Documented By: Admin: 12/02/24 08:47 Dose: 500 mg Documented By: Admin: 12/01/24 23:10 Dose: Not Given Documented By: Admin: 12/01/24 15:09 Dose: 500 mg Documented By: CHANCE Lisinopril (Lisinopril 10 Mg Tab) 10 mg PO QAM [facility] Stop: 12/31/24 11:29 Last Admin: 12/04/24 08:58 Dose: 10 mg Documented By: Admin: 12/03/24 16:51 Dose: 10 mg Documented By: Admin: 12/02/24 08:48 Dose: 10 mg Documented By: Admin: 12/01/24 15:10 Dose: 10 mg Documented By: CHANCE Metoprolol Tartrate (Metoprolol Tartrate 50 Mg Tab) 50 mg PO BID [facility] Stop: 12/31/24 11:29 Last Admin: 12/04/24 08:58 Dose: 50 mg Documented By: KTDannie Admin: 12/03/24 20:34 Dose: Not Given Documented By: Admin: 12/03/24 15:39 Dose: Not Given Documented By: Admin: 12/02/24 20:37 Dose: Not Given Documented By: Admin: 12/02/24 08:48 Dose: 50 mg Documented By: Admin: 12/01/24 22:37 Dose: Not Given Documented By: Admin: 12/01/24 15:10 Dose: 50 mg Documented By: CHANCE Nystatin (Nystatin Powder 15gm Btl) 1 appln EXT BID PRN PRN Reason: Affected Skin Folds Stop: 01/02/25 13:08 Last Admin: 12/03/24 20:24 Dose: 1 appln Documented By: DOROTHY Rivaroxaban (Rivaroxaban 20 Mg Tab) 20 mg PO DAILY [facility] Stop: 12/31/24 11:14 Last Admin: 12/04/24 08:58 Dose: 20 mg Documented By: KTDannie Admin: 12/02/24 09:54 Dose: Not Given Documented By: Admin: 12/01/24 15:09 Dose: 20 mg Documented By: CHNACE Tamsulosin HCl (Tamsulosin Hcl 0.4 Mg Cap) 0.4 mg PO DAILY [facility] Stop: 12/31/24 11:14 Last Admin: 12/04/24 08:58 Dose: 0.4 mg Documented By: KTDannie Admin: 12/03/24 16:52 Dose: 0.4 mg Documented By: Admin: 12/02/24 08:47 Dose: 0.4 mg Documented By: Admin: 12/01/24 15:09 Dose: 0.4 mg Documented By: CHANCE Discontinued Medications Aspirin (Aspirin 81 Mg Ectab) 81 mg PO NOW STA Stop: 12/01/24 09:59 Last Admin: 12/01/24 10:46 Dose: 81 mg Documented By: NA Atorvastatin Calcium (Atorvastatin 20 Mg Tab) 20 mg PO DAILY [facility] Stop: 12/31/24 11:29 Last Admin: 12/01/24 14:20 Dose: Not Given Documented By: CHANCE Atorvastatin Calcium (Atorvastatin 40 Mg Tab) 40 mg PO DAILY [facility] Stop: 01/01/25 08:59 Last Admin: 12/02/24 08:48 Dose: 40 mg Documented By: JANNIE Dextrose (Dextrose 50% 50 Ml Syringe) 50 ml IV NOW STA Stop: 12/01/24 21:24 Last Admin: 12/01/24 22:28 Dose: 50 ml Documented By: MLDannie Dextrose (Dextrose 50% 50 Ml Syringe) 50 ml IV NOW STA Stop: 12/01/24 23:04 Last Admin: 12/01/24 23:39 Dose: 50 ml Documented By: MLDannie Dextrose (Dextrose 50% 50 Ml Syringe) 50 ml IV NOW STA Stop: 12/02/24 02:26 Last Admin: 12/02/24 02:20 Dose: 50 ml Documented By: DOROTHY Fentanyl Citrate (Fentanyl Citrate Pf 100 Mcg/2 Ml Vial) Confirm Administered Dose 100 mcg .ROUTE .STK-MED ONE Stop: 12/03/24 10:03 Last Increment: 12/03/24 10:58 Dose: 50 mcg Documented By: YUE Increment: 12/03/24 10:30 Dose: 50 mcg Documented By: YUE Fentanyl Citrate (Fentanyl Citrate Pf 100 Mcg/2 Ml Vial) Confirm Administered Dose 100 mcg .ROUTE .STK-MED ONE Stop: 12/03/24 11:18 Last Increment: 12/03/24 11:56 Dose: 50 mcg Documented By: YUE Increment: 12/03/24 11:20 Dose: 50 mcg Documented By: YUE Fentanyl Citrate (Fentanyl Citrate Pf 100 Mcg/2 Ml Vial) Confirm Administered Dose 100 mcg .ROUTE .STK-MED ONE Stop: 12/03/24 12:08 Last Admin: 12/03/24 12:43 Dose: 100 mcg Documented By: YESSICA Fentanyl Citrate (Fentanyl Citrate Pf 100 Mcg/2 Ml Vial) Confirm Administered Dose 100 mcg .ROUTE .STK-MED ONE Stop: 12/03/24 12:46 Last Admin: 12/03/24 17:05 Dose: Not Given Documented By: MICHELINE Heparin Sodium (Porcine) (Heparin Sod (Porcine) 1000 Unit/Ml) Confirm Administered Dose 1,000 units .ROUTE .STK-MED ONE Stop: 12/03/24 10:04 Last Admin: 12/03/24 10:32 Dose: 5,000 units Documented By: YUE Co-signed By: ADRIEL Heparin Sodium (Porcine) (Heparin Sod (Porcine) 1000 Unit/Ml) 2,000 units IV ONCE ONE Stop: 12/03/24 11:58 Last Admin: 12/03/24 14:11 Dose: Not Given Documented By: MICHELINE Heparin Sodium (Porcine) (Heparin Sod (Porcine) 1000 Unit/Ml) 3,000 units IV NOW ONE Stop: 12/03/24 12:32 Last Admin: 12/03/24 11:45 Dose: 3,000 units Documented By: YUE Co-signed By: ADRIEL Heparin Sodium (Porcine) (Heparin Sod (Porcine) 1000 Unit/Ml) Confirm Administered Dose 1,000 units .ROUTE .STK-MED ONE Stop: 12/03/24 12:41 Last Admin: 12/03/24 14:12 Dose: Not Given Documented By: MICHELINE Heparin Sodium/Sodium Chloride (Heparin In Nss Infusion 1000 Unit/500 Ml (2 U/Ml) Bag) Confirm Administered Dose 2,000 units IV .STK-MED ONE Stop: 12/03/24 09:29 Last Admin: 12/03/24 14:12 Dose: Not Given Documented By: MICHELINE Sodium Chloride (Nss) 500 mls @ 999 mls/hr IV .Q31M STA Stop: 12/01/24 05:44 Last Infusion: 12/01/24 06:26 Dose: Infused Documented By: Admin: 12/01/24 05:27 Dose: 999 mls/hr Documented By: MILENA Piperacillin Sod/Tazobactam Sod (Zosyn) 4.5 gm in 100 mls @ 200 mls/hr IV NOW ONE; Protocol Stop: 12/01/24 06:41 Last Infusion: 12/01/24 07:33 Dose: Infused Documented By: Admin: 12/01/24 06:22 Dose: 200 mls/hr Documented By: IDD Vancomycin HCl 2,750 mg/ (Sodium Chloride) 555 mls @ 200 mls/hr IV NOW ONE Stop: 12/01/24 08:58 Last Infusion: 12/01/24 11:19 Dose: Infused Documented By: amg Admin: 12/01/24 07:10 Dose: 200 mls/hr Documented By: NA Dextrose/Sodium Chloride (D5w And Nss) 1,000 mls @ 125 mls/hr IV .Q8H [facility] Stop: 12/02/24 13:44 Last Infusion: 12/02/24 05:01 Dose: Infused Documented By: Infusion: 12/02/24 05:00 Dose: 0 mls/hr Documented By: Admin: 12/01/24 22:29 Dose: 125 mls/hr Documented By: MLS Albumin Human (Albumin 25%) 25 gm in 100 mls @ 50 mls/hr IV ONE ONE Stop: 12/01/24 23:58 Last Infusion: 12/02/24 00:25 Dose: Infused Documented By: Admin: 12/01/24 22:25 Dose: 50 mls/hr Documented By: MLS Albumin Human (Albumin 25%) 25 gm in 100 mls @ 50 mls/hr IV ONE ONE Stop: 12/02/24 03:22 Last Infusion: 12/02/24 04:08 Dose: Infused Documented By: Admin: 12/02/24 02:12 Dose: 50 mls/hr Documented By: MLS Sodium Chloride (Nss) 1,000 mls @ 999 mls/hr IV .Q1H1M ONE Stop: 12/02/24 04:11 Last Infusion: 12/02/24 04:12 Dose: Infused Documented By: Admin: 12/02/24 03:11 Dose: 999 mls/hr Documented By: MLS Clindamycin Phosphate (Cleocin/D5w) 900 mg in 50 mls @ 100 mls/hr IV PREOP CORRINA; Protocol Stop: 12/02/24 21:13 Last Admin: 12/02/24 09:55 Dose: Not Given Documented By: AJB Sodium Chloride (Nss) 1,000 mls @ 100 mls/hr IV .Q10H CORRINA Stop: 12/03/24 17:59 Last Infusion: 12/03/24 09:53 Dose: Infused Documented By: Admin: 12/03/24 09:09 Dose: 100 mls/hr Documented By: TB Sodium Chloride (Nss) 1,000 mls @ 100 mls/hr IV .Q10H CORRINA Stop: 12/03/24 18:00 Last Infusion: 12/03/24 18:43 Dose: Infused Documented By: Admin: 12/03/24 15:21 Dose: 100 mls/hr Documented By: MICHELINE Insulin Aspart (Insulin Aspart Per Unit Charge) 5 units SC NOW STA Stop: 12/01/24 07:22 Last Admin: 12/01/24 07:26 Dose: 5 units Documented By: YOEL Co-signed By: TNK Insulin Glargine (Lantus Per Unit Charge) 30 units SQ ONE ONE Stop: 12/01/24 06:14 Last Admin: 12/01/24 06:22 Dose: 30 units Documented By: IDD Co-signed By: CARMEN Insulin Glargine (Lantus Per Unit Charge) 15 units SQ BID CORRINA Stop: 12/31/24 11:44 Last Admin: 12/01/24 14:20 Dose: Not Given Documented By: CHANCE Ioversol (Optiray 320 125ml) 120 ml IV ONCE ONE Stop: 12/01/24 10:38 Last Admin: 12/01/24 10:38 Dose: 120 ml Documented By: WILLIE Levetiracetam (Levetiracetam 500 Mg/5 Ml Vial) 500 mg IV ONE ONE Stop: 12/01/24 22:44 Last Admin: 12/01/24 23:39 Dose: 500 mg Documented By: MLDannie Lidocaine HCl (Lidocaine 1% Local 20 Ml Vial) Confirm Administered Dose 20 ml .ROUTE .STK-MED ONE Stop: 12/03/24 09:29 Last Admin: 12/03/24 14:12 Dose: Not Given Documented By: MICHELINE Midazolam HCl (Midazolam Hcl 1 Mg/Ml 2ml Vial) Confirm Administered Dose 2 mg .ROUTE .STK-MED ONE Stop: 12/03/24 10:04 Last Admin: 12/03/24 10:30 Dose: 2 mg Documented By: CAW Midazolam HCl (Midazolam Hcl 1 Mg/Ml 2ml Vial) Confirm Administered Dose 2 mg .ROUTE .STK-MED ONE Stop: 12/03/24 10:56 Last Increment: 12/03/24 11:19 Dose: 1 mg Documented By: CAW Increment: 12/03/24 10:59 Dose: 1 mg Documented By: CAW Midazolam HCl (Midazolam Hcl 1 Mg/Ml 2ml Vial) Confirm Administered Dose 2 mg .ROUTE .STK-MED ONE Stop: 12/03/24 11:52 Last Increment: 12/03/24 11:56 Dose: 1 mg Documented By: CAW Midazolam HCl (Midazolam Hcl 1 Mg/Ml 2ml Vial) Confirm Administered Dose 2 mg .ROUTE .STK-MED ONE Stop: 12/03/24 12:22 Last Admin: 12/03/24 12:43 Dose: 2 mg Documented By: YESSICA Morphine Sulfate (Morphine Sulfate 4 Mg/Ml 1 Ml Carp\\Vial) 4 mg IV NOW STA Stop: 12/01/24 05:15 Last Admin: 12/01/24 05:26 Dose: 4 mg Documented By: MILENA Naloxone HCl (Naloxone Hcl 0.4 Mg/1 Ml Vial/Carp) Confirm Administered Dose 0.4 mg .ROUTE .STK-MED ONE Stop: 12/01/24 21:28 Last Admin: 12/01/24 22:29 Dose: Not Given Documented By: MLS Ondansetron HCl (Ondansetron Inj 2 Mg/Ml 2 Ml Vial) 4 mg IV NOW STA Stop: 12/01/24 05:15 Last Admin: 12/01/24 05:26 Dose: 4 mg Documented By: MILENA Oxycodone HCl (Oxycodone Hcl Ir 5 Mg Tab (Immediate Release)) 5 mg PO Q4H PRN PRN Reason: Pain Stop: 12/15/24 16:34 Last Admin: 12/01/24 17:42 Dose: 5 mg Documented By: [facility] [place] Radiologist's Impression: Foot X-Ray 12/01/24 05:35 EXAM: XR foot LT min 3V routine CLINICAL HISTORY: toe ulcers/blisters TECHNIQUE: Radiograph of foot was acquired. COMPARISON: none FINDINGS: Calcaneal spur noted Dystrophic calcifications are seen adjacent to calcaneal spur in ventral aspect of foot Vascular calcifications are seen within soft tissue Increased soft tissue density in ventral aspect of foot at first tarometatarsal joint. There is no evidence of acute fracture, dislocation or osseous lesion. The sesamoid complex is well approximated. The joint spaces appear preserved. Tarsal bones are well aligned. Rest of the soft tissues are unremarkable. IMPRESSION: No acute osseous abnormality. Dystrophic calcifications are seen adjacent to calcaneal spur in ventral aspect of foot Vascular calcifications are seen within soft tissue- Likely atherosclerotic changes Increased soft tissue density in ventral aspect of foot at first metatarso-phalangeal joint.could represent soft tissue edema- suggest correlation with clinical examination. Electronically signed by Tom Trejo 12-01-2024 06:[address] 12/01/24 06:23 EXAM: CT foot LT wo con CLINICAL HISTORY: eval for OM, abscess, free air/fluid TECHNIQUE: Contiguous axial CT images of left foot were obtained without intravenous contrast. Coronal and sagittal reconstructions were likewise performed and indicated to increase the sensitivity for detecting clinically relevant pathology. CT scan was performed according to ALARA (as low as reasonable achievable). COMPARISON: none FINDINGS: No acute fracture or dislocation. No destructive osseous lesion. Dystrophic calcifications are seen in the region of head of first metatarsal bone. No free air is seen within visualized soft tissues Subcutaneous hypodense thickening is seen along the ventral aspect of the first webspace, along dorsal and ventral aspect of second to fourth toes. Diffuse subcutaneous fat stranding is seen in foot and visualized leg. Vascular calcifications are seen in dorsal and ventral aspect of foot and in visualized lower third of leg. Small calcaneus spur is noted. Few dystrophic calcifications are seen anterior to the calcaneal spur. The visualized muscles and tendons appear grossly unremarkable. No cortical destruction to suggest osteomyelitis. No abscess formation. No significant joint effusion. There are no soft tissue masses. IMPRESSION: Dystrophic calcifications are seen in the region of head of first metatarsal bone. No free air is seen within visualized soft tissues Subcutaneous hypodense thickening is seen along the ventral aspect of the first webspace, along dorsal and ventral aspect of second to fourth toes. Could represent cellulitis Diffuse subcutaneous fat stranding is seen in foot and visualized leg. Could represent cellulitis Electronically signed by Tom Trejo 12-01-2024 08:06 AM Discharge Plan Visit Data Chief Complaint: Foot Injury/Pain Stated Complaint: Pain in Toe ED Provider: Graham Guadarrama Discharge Problem: Cellulitis, Chronic hyperglycemia, Pseudohyponatremia Patient Disposition: Admitted As Inpatient Condition: Fair Discharge Instructions Interventions: ED Discharge Assessment Last Done: 12/01/24 11:16
[2024-12-01] MEDS: VANCOMYCIN HCL 2,750 MG in SODIUM CHLORIDE 0.9% 500 ML IV ONE (07:10)
[2024-12-01] MEDS: INSULIN ASPART PER UNIT CHARGE SC STA (07:26)
--- NOTE | 2024-12-01 08:06 | CT Scan Report ---
EXAM: CT foot LT wo con CLINICAL HISTORY: eval for OM, abscess, free air/fluid TECHNIQUE: Contiguous axial CT images of left foot were obtained without intravenous contrast. Coronal and sagittal reconstructions were likewise performed and indicated to increase the sensitivity for detecting clinically relevant pathology. CT scan was performed according to ALARA (as low as reasonable achievable). COMPARISON: none FINDINGS: No acute fracture or dislocation. No destructive osseous lesion. Dystrophic calcifications are seen in the region of head of first metatarsal bone. No free air is seen within visualized soft tissues Subcutaneous hypodense thickening is seen along the ventral aspect of the first webspace, along dorsal and ventral aspect of second to fourth toes. Diffuse subcutaneous fat stranding is seen in foot and visualized leg. Vascular calcifications are seen in dorsal and ventral aspect of foot and in visualized lower third of leg. Small calcaneus spur is noted. Few dystrophic calcifications are seen anterior to the calcaneal spur. The visualized muscles and tendons appear grossly unremarkable. No cortical destruction to suggest osteomyelitis. No abscess formation. No significant joint effusion. There are no soft tissue masses. IMPRESSION: Dystrophic calcifications are seen in the region of head of first metatarsal bone. No free air is seen within visualized soft tissues Subcutaneous hypodense thickening is seen along the ventral aspect of the first webspace, along dorsal and ventral aspect of second to fourth toes. Could represent cellulitis Diffuse subcutaneous fat stranding is seen in foot and visualized leg. Could represent cellulitis Electronically signed by Tom Trejo 12-01-2024 08:06 AM
--- NOTE | 2024-12-01 10:12 | History & Physical Report ---
Date of Service December 01, 2024 Assessment & Plan (1) Wound, open, foot with complication: (2) DM (diabetes mellitus), type 2, uncontrolled w/neurologic complication: (3) Factor V Leiden mutation: (4) Hypertension: (5) Mixed restrictive and obstructive lung disease: (6) Morbid obesity: (7) Hyperglycemia: Plan #Foot blisteringmanaging as cellulitis, but also quite concerning for arterial insufficiency given that it does not really look like classic cellulitis, there is a fairly notable line of demarcation, and he has massively uncontrolled diabetes. Continue antibiotic coverage for MSSA for nowbut checking stat lower extremity CT angio (considered ultrasounds, but with his venous stasis, and concern on vessel occlusion, I felt CT angio would probably give more reliable and more detailed findings in this case) he is chronically anticoagulated on Xarelto, added an antiplatelet with aspirin for now pending results, and pending results may need to discuss with vascular surgery. Unfortunately, it seems this is going on for at least 2 days, if not longer. Wound care consult as well. already on atorvastatinif there is arterial occlusionwill definitely raise to at least 40 mg, consider doing so anyway but if no large vessel occlusion a little more nebulous as it would still largely be primary, rather than secondary, risk reduction. #Massively uncontrolled type 2 diabetes (with longstanding neuropathy, and apparently some degree of retinopathy)his last A1c a few months ago was 15.4, and his current glycemic control suggest that the A1c I have ordered would likely be similar. I did try to impart at least some basics of diabetic educationtying together what is going on with his foot acutely with the uncontrolled diabetes, and briefly educating (briefly given his level of fatigue) about uncontrolled diabetes leading to microvascular disease as well as immunosuppression. Will definitely need ongoing educationI suspect far more a foundation on why it is important to care about diabetes before even starting to educate on the actual management thereof. Hold metformin given the IV contrast for the CT angio. Basal bolus insulin dosinglikely will need rapid adjustments given that is not entirely clear what he takes at home, and not entirely clear at all what it will take for euglycemia. #V Leidenchronically anticoagulated with Xareltowill continue this unless any need to briefly interrupt arises. It is not entirely clear on chart review at this point if the patient has formed prior clots, and given that he was fairly groggy and did not want to talk much, I wanted to focus getting information from him that was acutely relevantwe will definitely want to revisit this later; at the same time, his current situation appears such that continuing anticoagulation would be warranted regardless. #Morbid obesity with BMI of 33.5/CHRISTIANO/mixed restrictive and obstructive lung diseaseWill ask for CPAP at bedtime #hypertensioncontinue lisinopril and metoprolol. Follow pressures, follow BMP periodically #seizure disordercontinue Keppra #B12 deficiencyreplace #hyponatremiaalmost certainly pseudohyponatremia from profound hyperglycemia. #BPH with LUTScontinue Flomax History of Present Illness Chief Complaint: foot pain and blistering Primary Care Provider: Joe Nevarez MD patient is a pleasant but very fatigued 69-year-old male. HPI somewhat limited due to his fatiguehe acknowledges that he is just very tired from having been in the ER through the nightand I am able to have him converse enough to know that he is not altered, he is oriented, he just is very fatigued. His left foot started hurting in the last day or 2 that he noticed, but he does note that he has fairly severe neuropathy and has very little feeling in his feet, so does acknowledge that this could have been going on longer. No fevers chills or sweats. No other symptoms no chest pain no shortness of breath. He came to the ER due to the foot pain and blisteringhere he was found to have blistering of his 1st and 2nd toes, concern on cellulitisCT of the foot also looks concerning for infection. His blood sugars were also 600, we were asked to admit for ongoing management. Allergies Allergy/AdvReac Type Severity Reaction Status Date / Time ceftriaxone Allergy Severe Hives Verified 09/12/24 14:52 Sulfa (Sulfonamide Allergy Intermediate HIVES-ITCHY Verified 09/12/24 14:52 Antibiotics) RASH Home Medications Medication Instructions Recorded Confirmed Type acetaminophen 325 mg tablet 650 mg (2 x 325 mg) PO Q6H PRN 02/18/21 09/12/24 Rx pain #30 tabs rivaroxaban 20 mg tablet (Xarelto) 20 mg PO DAILY #90 tabs 03/24/21 09/12/24 Rx ergocalciferol (vitamin D2) 1,250 50,000 unit PO Q7D@0900 #14 caps 06/21/21 08/08/30 Rx mcg (50,000 unit) capsule lancets 30 gauge (OneTouch Delica #25 ea 04/27/22 09/12/24 Rx Lancets) ketoconazole 2 % topical cream 1 applic topical UD 01/16/24 09/12/24 History metoprolol tartrate 50 mg tablet 50 mg PO UD 01/16/24 09/12/24 History cyanocobalamin (vitamin B-12) 500 500 mcg PO QAM #30 tabs 01/24/24 09/12/24 Rx mcg tablet levetiracetam 500 mg tablet 500 mg PO BID #60 tabs 01/24/24 09/12/24 Rx (Keppra) mupirocin calcium 2 % topical cream 1 applic topical BID #15 grams 02/29/24 09/12/24 Rx furosemide 80 mg tablet 80 mg PO QAM #90 tabs 03/27/24 09/12/24 Rx metformin 1,000 mg tablet 1,000 mg PO BID #180 tabs 03/27/24 09/12/24 Rx lisinopril 10 mg tablet 10 mg PO QAM #90 tabs 04/09/24 09/12/24 Rx blood sugar diagnostic (Oneuch #300 ea 06/20/24 09/12/24 Rx Ultra Test strips) blood-glucose meter (Accu-Chek #1 ea 06/20/24 09/12/24 Rx Guide Me Glucose Meter) insulin syringe-needle U-100 0.5 #100 ea 06/20/24 09/12/24 Rx mL 31 gauge x 5/16" insulin syringe-needle U-100 1 mL #300 ea 07/15/24 09/12/24 Rx 31 gauge x 5/16" atorvastatin 20 mg tablet 20 mg PO UD 90 days #90 tabs 07/31/24 09/12/24 Rx clotrimazole 1 % topical cream 1 applic topical BID #30 grams 09/12/24 09/12/24 Rx pen needle, diabetic 31 gauge x #200 ea 09/16/24 09/16/24 Rx 1/4" (Comfort EZ Pen Elizabeth) insulin glargine 100 unit/mL (3 50 unit (0.5 mL) subcut QAM #30 mL 09/30/24 09/30/24 Rx mL) subcutaneous pen (Lantus Solostar U-100 Insulin) insulin aspart U-100 100 unit/mL 17 unit (0.17 mL) subcut TID #30 mL 11/07/24 11/07/24 Rx (3 mL) subcutaneous pen (Novolog FlexPen U-100 Insulin aspart) tadalafil 20 mg tablet 20 mg PO DAILY PRN sexual activity 11/14/24 11/14/24 Rx #30 tabs tamsulosin 0.4 mg capsule 0.4 mg PO DAILY #30 caps 11/14/24 11/14/24 Rx fluconazole 200 mg tablet 200 mg PO DAILY #7 tabs 11/15/24 Rx lancets (Accu-Chek Softclix #300 ea 11/26/24 11/26/24 Rx Lancets) lancing device with lancets kit #1 ea 11/26/24 11/26/24 Rx (Accu-Chek Softclix Lancing Device+Lancets kit) Past Med/Surg History Problem List (Updated 12/01/24 @ 10:12 by Carlos Weaver DO) Wound, open, foot with complication Erectile dysfunction BPH w urinary obs/LUTS Syncope Seizure-like activity B12 deficiency Atrial flutter Fall Hyperglycemia Multiple closed fractures of cervical vertebrae (Acute) DM (diabetes mellitus), type 2, uncontrolled w/neurologic complication (Acute) Factor V Leiden mutation (Acute) on warfarin daily Fatty liver (Chronic) ? 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) Morbid obesity (Chronic) CHRISTIANO (obstructive sleep apnea) (Acute) cpap Vitamin D deficiency (Chronic) Chronic anticoagulation Diabetic neuropathy (Chronic) Edema (Acute) Ambulatory dysfunction Status post placement of cardiac pacemaker (2021) Dual-chamber [employer] Weed DR SOLOMON SureScjessie Anemia Diastolic congestive heart failure Uncontrolled type 2 diabetes mellitus Loss of protective sensation of skin of foot Non-proliferative diabetic retinopathy, both eyes Vitreous hemorrhage Medical History Hypothermia Fracture of cervical vertebra, C6 C5 cervical fracture C2 cervical fracture Status post fall Acute respiratory failure with hypoxia Alcohol intoxication History of DVT (deep vein thrombosis) Complete heart block Hives Supratherapeutic INR On anticoagulant therapy warfarin daily Bradycardia Hyperglobulinemia DVT, lower extremity ? pt denies Surgical History Status post appendectomy History of colonoscopy History of wisdom tooth extraction History of tooth extraction S/P tonsillectomy Family History Father Coronary heart disease Myocardial infarction Mother COPD (chronic obstructive pulmonary disease) Stroke Family history of diabetes mellitus Diabetes Brother Prostate cancer Coronary heart disease Grandfather (Paternal) Family history of diabetes mellitus Grandmother (Paternal) Family history of diabetes mellitus Other No family history of adverse response to anesthesia Denies family history of Ovarian cancer Breast cancer Colorectal cancer Social History Smoking Status: Never smoker Tobacco Type: Smokeless Tobacco (Dip or Chew) Second Hand Exposure: No; Do You Dip or Chew Tobacco: Yes; Hx Alcohol Use: No Hx Substance Use: No Preferred Language: Ukrainian Communication Ability: Effective Visual Impairment: Limited Hearing Ability: Normal Fretted Instrument Repairer Required: No Beliefs That Will Affect Care: None marital status: Life Partner Current Living Situation: Significant Other Current Living Situation Comment: Lives with sister current occupational status: retired and disabled current occupation: [employer] Feels Safe at Home: Yes Childhood Exposure to Second-Hand Smoke: No Diet: diabetic caffeine: Yes Dental Care, Regularly: No Physical Activity Frequency: Does not Exercise Seatbelt Use: always Assistive Devices: Walker Review of Systems Review of Systems: All systems reviewed & are unremarkable except as noted in HPI & below Physical Exam Physical Exam: In general he is fatigued, but is oriented to person place time situation. Other than being tired he is in no acute distress. HEENT normocephalic atraumatic mucous membranes moist. Cardio is regular without rubs murmurs or gallops. Lungs are clear without rales rhonchi or wheezes good effort no accessory muscle use. Abdomen is soft. Extremities show a bit of venous stasis changes. Left foot is the main area of concernhis 1st and 2nd toes have blistering of the skin with a fairly clear line of demarcation just proximal to the MP joint. There is not really any tracking erythema nothing is really tender, and some of the blisters have opened and there is predominantly serous drainage. I cannot check cap refill because of the fact that it is all blistered. Right foot with venous stasis type changes only. Neuro shows diminished sensation in his feet. No cranial nerve deficits noted. Labs and diagnostics noted. Results & Data Results & Data Vital Signs (Past 12 Hours) Vital Signs Temp Pulse Pulse Resp BP BP Pulse Ox 12/01/24 08:40 76 20 127/70 98 12/01/24 07:00 60 20 148/75 H 96 12/01/24 06:02 60 16 123/67 100 12/01/24 05:28 60 12/01/24 05:21 62 16 99 12/01/24 05:12 61 16 144/66 H 12/01/24 05:02 97.5 F L 69 113/60 96 O2 Del Method 12/01/24 08:40 Room Air 12/01/24 07:00 Room Air 12/01/24 06:02 Room Air 12/01/24 05:28 12/01/24 05:21 Room Air 12/01/24 05:12 Room Air 12/01/24 05:02 Room Air Code Status & VTE Plan VTE Prophylaxis Plan VTE Prophylaxis will be ordered: Yes PG Care Time/CCT Total # of Minutes Spent Total Time Spent with Patient: Total time spent is greater than 50% in coordination of care (as documented) at patient's floor/unit and/or counseling patient: Coding Level of Care Code 38031 INT INP/OBS CARE 3/75MIN Diagnoses Wound, open, foot with complication S91.309A DM (diabetes mellitus), type 2, uncontrolled w/neurologic complication E11.49; E11.65 Factor V Leiden mutation D68.51 Hypertension I10 Mixed restrictive and obstructive lung disease J44.9; J98.4 Morbid obesity E66.01 Hyperglycemia R73.9
[2024-12-01] MEDS: OPTIRAY 320 125ml IV ONE (10:38)
[2024-12-01] MEDS: ASPIRIN 81 MG ECTAB PO STA (10:46)
--- NOTE | 2024-12-01 11:12 | CT Scan Report ---
HISTORY: Left foot wounds. Diabetic feet. TECHNIQUE: Left lower extremity CT was performedwith IV contrast. Images are presented in axial, sagittal, coronal reformats. COMPARISON: None. FINDINGS: The left common iliac and external iliac arteries are patent. The common femoral, deep femoral, superficial femoral arteries are patent. Mild atherosclerotic vascular disease within the distal superficial femoral and popliteal arteries. Mild popliteal artery stenosis. Severe stenosis of the anterior and posterior tibial arteries is multifocal. The peroneal artery has multifocal severe stenosis. Multifocal severe stenosis of the anterior and posterior tibial arteries. Focal age-indeterminate short segment occlusion of the anterior tibial artery on series 3 image 622. Soft tissue edema is seen throughout the leg, foot, and ankle. There is severe muscular atrophy about the lower leg, ankle, and foot. The included small and large bowel loops are normal in caliber. Mild bladder wall thickening. Partially fused left sacroiliac joint. Moderate osteoarthritis of the left hip. The left femur appears intact. Tricompartmental osteoarthritis of the knee. Osteoarthritis of the ankle and hindfoot. Moderate osteoarthritis of the first MTP joint. Degenerative changes of the foot. No acute fracture. No definitive findings of osteomyelitis. IMPRESSION: * Left common iliac, external iliac, and common femoral arteries are patent. Patent superficial femoral and popliteal arteries with multifocal mild atherosclerotic plaque. Mild atherosclerotic plaque along the tibioperoneal trunk. Multifocal severe stenosis throughout the infrapopliteal vessels. The anterior tibial artery has age indeterminant short segment occlusion on series 3 image 62 at the level of the mid lower leg with distal reconstitution. * Severe atrophy involving the musculature of the left lower leg, foot, and ankle. Soft tissue edema throughout the left lower extremity. No drainable fluid collection or abscess is identified. * Mild nonspecific bladder wall thickening could represent cystitis. Recommend correlation with urinalysis. * Additional chronic and/or incidental findings as above. Electronically signed by Reji Hernández 12-01-2024 11:12 AM
[2024-12-01] MEDS ORDERED: MAGNESIUM HYDROXIDE SUSP 30 ML UDC PO PRN (11:15)
[2024-12-01] MEDS ORDERED: MELATONIN 3 MG TAB PO PRN (11:15)
[2024-12-01] MEDS ORDERED: ONDANSETRON INJ 2 MG/ML 2 ML VIAL IV PRN (11:15)
[2024-12-01] MEDS ORDERED: ALUMINUM/MAGNESIUM SUSP 30 ML UDC PO PRN (11:15)
[2024-12-01] MEDS ORDERED: POLYETHYLENE (MIRALAX) 17 GM PACK PO PRN (11:15)
[2024-12-01] MEDS ORDERED: CARBOHYDRATES FOR HYPOGLYCEMIA PO PRN (11:45)
[2024-12-01] MEDS ORDERED: GLUCOSE 10 TAB/TUBE PO PRN (11:45)
[2024-12-01] MEDS ORDERED: DEXTROSE 50% 50 ML SYRINGE IV PRN (11:45)
[2024-12-01] MEDS ORDERED: GLUCAGON FOR INJ 1 MG VIAL SQ PRN (11:45)
[2024-12-01] MEDS ORDERED: GLUCOSE 40% GEL 15 GM TUBE PO PRN (11:45)
[2024-12-01 12:59] LABS: Hemoglobin A1C 13.7 % (4.5-5.6)
[2024-12-01] MEDS: LANTUS PER UNIT CHARGE SQ SCH ×2 (14:20→22:12)
[2024-12-01] MEDS: ATORVASTATIN 20 MG TAB PO SCH (14:20)
[2024-12-01] MEDS: TAMSULOSIN HCL 0.4 MG CAP PO SCH (15:09)
[2024-12-01] MEDS: RIVAROXABAN 20 MG TAB PO SCH (15:09)
[2024-12-01] MEDS: FUROSEMIDE 80 MG TAB PO SCH (15:09)
[2024-12-01] MEDS: levETIRAcetam 500 MG TAB PO SCH (15:09)
[2024-12-01] MEDS: ERGOCALCIFEROL 1250 MCG (50,000 UNITS) CAP PO SCH (15:09)
[2024-12-01] MEDS: METOPROLOL TARTRATE 50 MG TAB PO SCH (15:10)
[2024-12-01] MEDS: INSULIN ASPART PER UNIT CHARGE SC SCH (15:17)
[2024-12-01] MEDS: ACETAMINOPHEN 325 MG TAB PO PRN (17:42)
--- NOTE | 2024-12-01 21:56 | Communication Note ---
Date of Service: December 01, 2024 Code delmer called overnight d/t patient becoming more lethargic/unresponsive. At bedside, patient very difficult to arouse, even with noxious stimuli. Initial vitals stable, BSG 91. Repeat vitals notable for BP 80s/50s, BSG 84 compared to BSG on arrival 600. Patient was given 1 amp D50 with rapid improvement in arousability, though still far from baseline. 1L bolus IV fluids started and patient was transferred to PCU. Additional studies obtained: ABG WNL, CXR/CT head w/o contrast unremarkable. Over the course of the night, both BP and BSG repeatedly trended downward - in total, patient received 3 amps D50, 1L bolus x2, 50g albumin, and D5NSS maintenance fluids. Mentation progressively cleared, such that NPO order removed and patient ate without issue. Suspect transient unresponsiveness/AMS was d/t rapid drop in blood sugar. No insulin given overnight - consider starting with a less stringent insulin regimen to avoid recurrent hypoglycemia. The only sedating med given was oxycodone 5mg 4-5 hours before onset of sx. Not entirely clear why BP has remained so soft despite seemingly adequate fluid resuscitation. Presentation not overtly suggestive of shock-like picture. Fortunately responded well enough to maintain MAP>65 for vast majority of night.
[2024-12-01] MEDS: ALBUMIN 25% 25 GM/100 ML VIAL IV ONE (22:25)
[2024-12-01] MEDS: DEXTROSE 50% 50 ML SYRINGE IV STA ×2 (22:28→23:39)
[2024-12-01] MEDS: D5W AND NSS 1,000 ML IV SCH (22:29)
[2024-12-01] MEDS: NALOXONE HCL 0.4 MG/1 ML VIAL/CARP ONE (22:29)
--- NOTE | 2024-12-01 22:43 | XRay Report ---
Exam(s): XR CXR 1 VIEW EXAM: XR Chest, 1 View CLINICAL HISTORY: Reason for exam: ams. TECHNIQUE: Frontal view of the chest. COMPARISON: 12/30/2023 FINDINGS: Lungs: No consolidation. No overt edema. Pleural space: No pleural effusion. No pneumothorax. Heart: Unremarkable. No cardiomegaly. Tubes, lines and devices: Pacemaker leads in the right atrium and right ventricle. IMPRESSION: No acute findings in the chest. Electronically signed by: Charlie Zurita MD 12/01/24 22:42 PM
--- NOTE | 2024-12-01 22:54 | CT Scan Report ---
Exam(s): CT HEAD Without Contrast EXAM: CT Head Without Intravenous Contrast CLINICAL HISTORY: Reason for exam: ams. TECHNIQUE: Axial computed tomography images of the head/brain without intravenous contrast. CTDI is 66 mGy and DLP is 1100 mGy-cm. Automated exposure control was utilized for the study. A dose lowering technique was utilized adhering to the principles of ALARA. COMPARISON: MRI 01/17/2024 FINDINGS: Brain: No intracranial hemorrhage, mass-effect, or cerebral edema. Atrophy and chronic microvascular ischemic changes. Ventricles: Unremarkable. Bones/joints: Unremarkable. No fracture. Soft tissues: Unremarkable. Sinuses: No acute sinusitis. Mastoid air cells: Unremarkable as visualized. IMPRESSION: 1. No acute intracranial abnormality. Electronically signed by: Charlie Zurita MD 12/01/24 22:53 PM
[2024-12-02] MEDS ORDERED: Nursing to Pharmacy Communication SCH (01:45)
[2024-12-02] MEDS: ALBUMIN 25% 25 GM/100 ML VIAL IV ONE (02:12)
[2024-12-02] MEDS: DEXTROSE 50% 50 ML SYRINGE IV STA (02:20)
[2024-12-02] MEDS: SODIUM CHLORIDE 0.9% 1,000 ML IV ONE (03:11)
[2024-12-02 08:37] LABS: Hematocrit (blood only) 34.9 % (42.0-52.0); Hemoglobin 11.9 g/dl (14.0-18.0); Immature Granulocytes # (auto) 0.03 K/uL (0.01-0.20); Immature Granulocytes % (auto) 0.3 %; Mean Corpuscular Hemoglobin 29.6 pg (25.0-34.0); Mean Corpuscular Volume 86.8 fL (80.0-100.0); Platelet Count 233 K/uL (130-400); RDW Standard Deviation 39.9 fL (36.4-46.3); Red Blood Count 4.02 M/uL (4.70-6.10); White Blood Count 8.65 K/ul (4.8-10.8)
[2024-12-02] MEDS: ASPIRIN 81 MG ECTAB PO SCH (08:47)
[2024-12-02] MEDS: CYANOCOBALAMIN (B-12) 500 MCG TABLET PO SCH (08:47)
[2024-12-02] MEDS: ATORVASTATIN 40 MG TAB PO SCH (08:48)
[2024-12-02 08:50] LABS: Anion Gap 6.0 (3-11); Blood Urea Nitrogen 16.0 mg/dl (6-23); Calcium 8.3 mg/dl (8.6-10.3); Carbon Dioxide 25.0 mmol/L (21-32); Chloride 106.0 mmol/L (98-107); Creatinine Clr Calc Pharmacy 102.6 ml/min; Glucose 213.0 mg/dl (70-99(Fasting)); Potassium 3.9 mmol/L (3.5-5.1); Sodium 137.0 mmol/L (136-145)
[2024-12-02 09:23] LABS: iSTAT Art Bld Gas Base Excess 0.0 mmol/L (-9-1.8); iSTAT Art Bld Gas pCO2 Correct 39 mmHg (35-46); iSTAT Art Bld Gas pH Corrected 7.406 (7.35-7.45); iSTAT Arterial Blood Gas pO2 C 242
--- NOTE | 2024-12-02 09:51 | Consultation ---
Date of Consultation December 02, 2024 Assessment & Plan (1) Tibial artery occlusion, left: And CT angiogram of the majority of his occlusive disease is in the infrapopliteal arteries of the left lower extremity. This point due to the tissue loss and color changes of the toes would recommend arteriography and possible intervention. I have discussed the risks options and benefits of the procedure with the patient. The patient understands the risks options and benefits and agrees to the procedure. This will be scheduled for tomorrow. Thank you very much for letting us participate in the care of this patient. History of Present Illness Reason for Consultation: Pregangrenous changes of the left great and second toe Attending Physician: Artem Pierce MD History of Present Illness I the pleasure of seeing Waylno today for evaluation. He is a 69-year-old poorly controlled diabetic. He claims that pain in his left great toe starting approximately 2 days prior to admission with discoloration developing ulceration of the dorsum surface of the great toe. He does complain of leg cramping when he walks but it is not consistent. He has had no problems with wound healing of the foot in the past. He is a poorly controlled diabetic with A1C of over 15. He also has a history of diastolic congestive heart failure diabetic neuropathy dysfunction, hypercholesterolemia hypertension. He is also a Leiden 5 deficiency positive. He is on a statin at home. He is on no antiplatelet medication. He denies any rest pain in his foot. Allergies Allergy/AdvReac Type Severity Reaction Status Date / Time ceftriaxone Allergy Severe Hives Verified 09/12/24 14:52 Sulfa (Sulfonamide Allergy Intermediate HIVES-ITCHY Verified 09/12/24 14:52 Antibiotics) RASH Home Medications Medication Instructions Recorded Confirmed Type acetaminophen 325 mg tablet 650 mg (2 x 325 mg) PO Q6H PRN 02/18/21 09/12/24 Rx pain #30 tabs rivaroxaban 20 mg tablet (Xarelto) 20 mg PO DAILY #90 tabs 03/24/21 09/12/24 Rx ergocalciferol (vitamin D2) 1,250 50,000 unit PO Q7D@0900 #14 caps 06/21/21 09/12/24 Rx mcg (50,000 unit) capsule lancets 30 gauge (OneTouch [facility] #25 ea 04/27/22 09/12/24 Rx Lancets) ketoconazole 2 % topical cream 1 applic topical UD 01/16/24 09/12/24 History metoprolol tartrate 50 mg tablet 50 mg PO UD 01/16/24 09/12/24 History cyanocobalamin (vitamin B-12) 500 500 mcg PO QAM #30 tabs 01/24/24 09/12/24 Rx mcg tablet levetiracetam 500 mg tablet 500 mg PO BID #60 tabs 01/24/24 09/12/24 Rx (Keppra) mupirocin calcium 2 % topical cream 1 applic topical BID #15 grams 02/29/24 09/12/24 Rx furosemide 80 mg tablet 80 mg PO QAM #90 tabs 03/27/24 09/12/24 Rx metformin 1,000 mg tablet 1,000 mg PO BID #180 tabs 03/27/24 09/12/24 Rx lisinopril 10 mg tablet 10 mg PO QAM #90 tabs 04/09/24 09/12/24 Rx blood sugar diagnostic (OneTouch #300 ea 06/20/24 09/12/24 Rx Ultra Test strips) blood-glucose meter (Accu-Chek #1 ea 06/20/24 09/12/24 Rx Guide Me Glucose Meter) insulin syringe-needle U-100 0.5 #100 ea 06/20/24 09/12/24 Rx mL 31 gauge x 5/16" insulin syringe-needle U-100 1 mL #300 ea 07/15/24 09/12/24 Rx 31 gauge x 5/16" atorvastatin 20 mg tablet 20 mg PO UD 90 days #90 tabs 07/31/24 09/12/24 Rx clotrimazole 1 % topical cream 1 applic topical BID #30 grams 09/12/24 09/12/24 Rx pen needle, diabetic 31 gauge x #200 ea 09/16/24 09/16/24 Rx 1/4" (Comfort EZ Pen [place]) insulin glargine 100 unit/mL (3 50 unit (0.5 mL) subcut QAM #30 mL 09/30/24 09/30/24 Rx mL) subcutaneous pen (Lantus Solostar U-100 Insulin) insulin aspart U-100 100 unit/mL 17 unit (0.17 mL) subcut TID #30 mL 11/07/24 11/07/24 Rx (3 mL) subcutaneous pen (Novolog FlexPen U-100 Insulin aspart) tadalafil 20 mg tablet 20 mg PO DAILY PRN sexual activity 11/14/24 11/14/24 Rx #30 tabs tamsulosin 0.4 mg capsule 0.4 mg PO DAILY #30 caps 11/14/24 11/14/24 Rx fluconazole 200 mg tablet 200 mg PO DAILY #7 tabs 11/15/24 Rx lancets (Accu-Chek Softclix #300 ea 11/26/24 11/26/24 Rx Lancets) lancing device with lancets kit #1 ea 11/26/24 11/26/24 Rx (Accu-Chek Softclix Lancing Device+Lancets kit) Patient History Medical History Hypothermia Fracture of cervical vertebra, C6 C5 cervical fracture C2 cervical fracture Status post fall Acute respiratory failure with hypoxia Alcohol intoxication History of DVT (deep vein thrombosis) Complete heart block Hives Supratherapeutic INR On anticoagulant therapy warfarin daily Bradycardia Hyperglobulinemia DVT, lower extremity ? pt denies Surgical History Status post appendectomy History of colonoscopy History of wisdom tooth extraction History of tooth extraction S/P tonsillectomy Family History Father Coronary heart disease Myocardial infarction Mother COPD (chronic obstructive pulmonary disease) Stroke Family history of diabetes mellitus Diabetes Brother Prostate cancer Coronary heart disease Grandfather (Paternal) Family history of diabetes mellitus Grandmother (Paternal) Family history of diabetes mellitus Other No family history of adverse response to anesthesia Denies family history of Ovarian cancer Breast cancer Colorectal cancer Social History Smoking Status: Never smoker Tobacco Type: Smokeless Tobacco (Dip or Chew) Second Hand Exposure: No; Do You Dip or Chew Tobacco: Yes; Hx Alcohol Use: No Hx Substance Use: No Preferred Language: Mongolian Communication Ability: Effective Visual Impairment: Limited Hearing Ability: Normal Child Care Coordinator Required: No Beliefs That Will Affect Care: None marital status: Life Partner Current Living Situation: Significant Other Current Living Situation Comment: Lives with sister current occupational status: retired and disabled current occupation: [employer] Feels Safe at Home: Yes Childhood Exposure to Second-Hand Smoke: No Diet: diabetic caffeine: Yes Dental Care, Regularly: No Physical Activity Frequency: Does not Exercise Seatbelt Use: always Assistive Devices: Walker Review of Systems Review of Systems: All systems reviewed & are unremarkable except as noted in HPI & below Physical Exam Constitutional: WD/WN, vitals as above Respiratory: normal respiratory effort, lungs clear to auscultation Cardiovascular: RRR, no murmur, no edema Vessels: femoral pulses present; + posterior tibial pulses abnormal and + dorsalis pedis pulses abnormal Extremities: + abnormal capillary refill Gastrointestinal (Abdomen): normal bowel sounds, soft, nontender, no hepatosplenomegaly Skin: Pregangrenous changes are present of the left 1st and 2nd toe as well as a small ulceration approximately quarter size present on the dorsum of his great toe. Neurologic: CN's II-XI intact bilaterally and moves all extremities; + abnormal sensation to monofilament (Decreased sensation both feet.) Psychiatric: A+Ox3, euthymic affect Results & Data Vital Signs (Past 12 Hours) Vital Signs Temp Pulse Pulse Resp BP BP Pulse Ox 12/02/24 09:39 85/49 L 99/62 L 95 12/02/24 07:32 36.4 C L 69 20 158/83 H 96 12/02/24 06:15 102/54 L 12/02/24 04:54 99/61 L 12/02/24 03:08 36.5 C 61 22 82/41 L 100 12/02/24 01:04 93/57 L 12/01/24 23:21 36.4 C L 60 20 116/61 98 12/01/24 23:10 91/57 L 12/01/24 22:15 36.3 C L 63 20 88/54 L 100 12/01/24 22:01 60 O2 Del Method 12/02/24 09:39 Room Air 12/02/24 07:32 Room Air 12/02/24 06:15 12/02/24 04:54 12/02/24 03:08 Room Air 12/02/24 01:04 12/01/24 23:21 Room Air 12/01/24 23:10 12/01/24 22:15 Room Air 12/01/24 22:01
[2024-12-02] MEDS: CLINDAMYCIN/D5W 900 MG/50 ML BAG IV SCH (09:55)
--- NOTE | 2024-12-02 10:41 | Hospitalist Progress Note ---
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 - Continue antibiotic coverage for MSSA for now Lower extremity CT angio as noted below. Unfortunately, it seems this is going on for at least 2 days, if not longer. Wound care consult as well. #Severe PAD -New, Confirmed and severe by CT Angio with Multifocal severe stenosis throughout the infrapopliteal vessels. contributing to blistering as above -consult to vascular surgery, secondary prevention as noted below -Continue Xarelto and ASA #Massively uncontrolled type 2 diabetes #Hyperosmolar hyperglycemic state #With Complications (longstanding neuropathy,+/- retinopathy) - continue Lantus plus SS, will titrate to meal time insulin based on oral intake, expect quite a bit of variability in the near term with celulitis, vascular d/z and severity of recent hyperglycemia #Hyponatremia - within normal limits after compensation for elevated blood sugars, normalizing this morning #HLD - increase to high dose given PAD #Factor V Leiden - chronically anticoagulated with Xarelto, continue #Morbid obesity with BMI of 33.5/CHRISTIANO/mixed restrictive and obstructive lung disease Will ask for CPAP at bedtime #hypertensioncontinue lisinopril and metoprolol. Follow pressures, follow BMP periodically #seizure disordercontinue Keppra #B12 deficiencyreplace #BPH with LUTScontinue Flomax #FEN - HH and DM2 diet, monitor intake #CODE STATUS - Full Code per his wishes Admission and Anticipated Discharge Date Admission Date: December 01, 2024 Subjective feeling better this morning. No dizziness. Still somewhat fatigued but did not sleep all that well. No problem with intake. Ate a good breakfast. No problem with bowel or bladder function. No new events or concerns per nursing or per patient. We discussed emergent control of his blood sugars. No other underlying generalized signs of illness. No new or different symptoms compared to admission Physical Exam Physical Exam: General: A&Ox3. NAD. Cooperative. HEENT: Atraumatic, normocephalic. Vision and hearing grossly intact. Pupils equal and reactive to light, sclera clear and anicteric Pulm: CTAB A&P. -wheezes, -rales, -rhonchi. No increased work of breathing. No respiratory distress. Cardiac: RRR. -mrg. Radial pulses intact and symmetrical. Abdominal: Nontender, nondistended, soft. BS present. Ext: No Edema, Moves all extremities equally NEURO: A&O as above, no focal deficits Skin: warm, moist. Results & Data Results & Data Vital Signs (Past 12 Hours) Vital Signs Temp Pulse Resp BP BP Pulse Ox O2 Del Method 12/02/24 09:39 85/49 L 99/62 L 95 Room Air 12/02/24 07:32 36.4 C L 69 20 158/83 H 96 Room Air 12/02/24 06:15 102/54 L 12/02/24 04:54 99/61 L 12/02/24 03:08 36.5 C 61 22 82/41 L 100 Room Air 12/02/24 01:04 93/57 L 12/01/24 23:21 36.4 C L 60 20 116/61 98 Room Air 12/01/24 23:10 91/57 L Laboratory Results 12/01/24 05:24 Aerobic Blood Culture - Preliminary Blood No growth in Aerobic bottle after 24 hours. Anaerobic Blood Culture - Preliminary No growth in Anaerobic bottle after 24 hours. 12/01/24 05:18 Aerobic Blood Culture - Preliminary Blood No growth in Aerobic bottle after 24 hours. Anaerobic Blood Culture - Preliminary No growth in Anaerobic bottle after 24 hours. 12/02/24 12/02/24 12/02/24 08:33 07:48 07:41 WBC 8.65 RBC 4.02 L Hgb 11.9 L D POC Hgb Hct 34.9 L POC Hct MCV 86.8 MCH 29.6 MCHC 34.1 RDW Std Deviation 39.9 RDW Coeff of Morena 12.5 Plt Count 233 MPV 11.4 Immature Gran % (Auto) 0.3 Neut % (Auto) 73.7 Lymph % (Auto) 13.9 Murray % (Auto) 9.1 Eos % (Auto) 2.5 Baso % (Auto) 0.5 Neut # (Auto) 6.37 Lymph # (Auto) 1.20 Murray # (Auto) 0.79 H Eos # (Auto) 0.22 Baso # (Auto) 0.04 Immature Gran # (Auto) 0.03 Specimen Type Sample Site POC pH POC pCO2 POC pO2 POC HCO3 POC Total CO2 POC Base Excess ABG pH (Temp Correct) ABG pCO2 (Temp Corrct POC ABG pO2 at Pt Temp POC ABG O2 Sat Moises Test O2 Delivery Device POC Sodium Sodium 137 POC Potassium Potassium 3.9 Chloride 106 Carbon Dioxide 25 Anion Gap 6 BUN 16 Creatinine 0.86 Est Cr Clr Drug Dosing 102.6 eGFR 94.32 BUN/Creatinine Ratio 18.6 Glucose 213 H POC Glucose 229 H 185 H Estimat Average Glucose Hemoglobin A1c Calcium 8.3 L 12/02/24 12/02/24 12/02/24 06:12 04:47 04:07 WBC RBC Hgb POC Hgb Hct POC Hct MCV MCH MCHC RDW Std Deviation RDW Coeff of Morena Plt Count MPV Immature Gran % (Auto) Neut % (Auto) Lymph % (Auto) Murray % (Auto) Eos % (Auto) Baso % (Auto) Neut # (Auto) Lymph # (Auto) Murray # (Auto) Eos # (Auto) Baso # (Auto) Immature Gran # (Auto) Specimen Type Sample Site POC pH POC pCO2 POC pO2 POC HCO3 POC Total CO2 POC Base Excess ABG pH (Temp Correct) ABG pCO2 (Temp Corrct POC ABG pO2 at Pt Temp POC ABG O2 Sat Moises Test O2 Delivery Device POC Sodium Sodium POC Potassium Potassium Chloride Carbon Dioxide Anion Gap BUN Creatinine Est Cr Clr Drug Dosing eGFR BUN/Creatinine Ratio Glucose POC Glucose 207 H 281 H 276 H Estimat Average Glucose Hemoglobin A1c Calcium 12/02/24 12/02/24 12/02/24 03:01 02:15 01:00 WBC RBC Hgb POC Hgb Hct POC Hct MCV MCH MCHC RDW Std Deviation RDW Coeff of Morena Plt Count MPV Immature Gran % (Auto) Neut % (Auto) Lymph % (Auto) Murray % (Auto) Eos % (Auto) Baso % (Auto) Neut # (Auto) Lymph # (Auto) Murray # (Auto) Eos # (Auto) Baso # (Auto) Immature Gran # (Auto) Specimen Type Sample Site POC pH POC pCO2 POC pO2 POC HCO3 POC Total CO2 POC Base Excess ABG pH (Temp Correct) ABG pCO2 (Temp Corrct POC ABG pO2 at Pt Temp POC ABG O2 Sat Moises Test O2 Delivery Device POC Sodium Sodium POC Potassium Potassium Chloride Carbon Dioxide Anion Gap BUN Creatinine Est Cr Clr Drug Dosing eGFR BUN/Creatinine Ratio Glucose POC Glucose 232 H 75 178 H Estimat Average Glucose Hemoglobin A1c Calcium 12/02/24 12/01/24 12/01/24 00:09 22:58 22:02 WBC RBC Hgb POC Hgb Hct POC Hct MCV MCH MCHC RDW Std Deviation RDW Coeff of Morena Plt Count MPV Immature Gran % (Auto) Neut % (Auto) Lymph % (Auto) Murray % (Auto) Eos % (Auto) Baso % (Auto) Neut # (Auto) Lymph # (Auto) Murray # (Auto) Eos # (Auto) Baso # (Auto) Immature Gran # (Auto) Specimen Type Sample Site POC pH POC pCO2 POC pO2 POC HCO3 POC Total CO2 POC Base Excess ABG pH (Temp Correct) ABG pCO2 (Temp Corrct POC ABG pO2 at Pt Temp POC ABG O2 Sat Moises Test O2 Delivery Device POC Sodium Sodium POC Potassium Potassium Chloride Carbon Dioxide Anion Gap BUN Creatinine Est Cr Clr Drug Dosing eGFR BUN/Creatinine Ratio Glucose POC Glucose 161 H 100 H 127 H Estimat Average Glucose Hemoglobin A1c Calcium 12/01/24 12/01/24 12/01/24 21:35 21:33 21:21 WBC RBC Hgb POC Hgb 11.9 L Hct POC Hct 35 L MCV MCH MCHC RDW Std Deviation RDW Coeff of Morena Plt Count MPV Immature Gran % (Auto) Neut % (Auto) Lymph % (Auto) Murray % (Auto) Eos % (Auto) Baso % (Auto) Neut # (Auto) Lymph # (Auto) Murray # (Auto) Eos # (Auto) Baso # (Auto) Immature Gran # (Auto) Specimen Type Arterial Sample Site L Radial POC pH 7.42 POC pCO2 37 POC pO2 237 H POC HCO3 24 POC Total CO2 25 POC Base Excess 0.0 ABG pH (Temp Correct) 7.406 ABG pCO2 (Temp Corrct 39 POC ABG pO2 at Pt Temp 242 POC ABG O2 Sat 100.0 H Moises Test Pass O2 Delivery Device Room Air POC Sodium 135 Sodium POC Potassium 4.1 Potassium Chloride Carbon Dioxide Anion Gap BUN Creatinine Est Cr Clr Drug Dosing eGFR BUN/Creatinine Ratio Glucose POC Glucose 151 H 84 Estimat Average Glucose Hemoglobin A1c Calcium 12/01/24 12/01/24 12/01/24 20:20 16:40 15:02 WBC RBC Hgb POC Hgb Hct POC Hct MCV MCH MCHC RDW Std Deviation RDW Coeff of Morena Plt Count MPV Immature Gran % (Auto) Neut % (Auto) Lymph % (Auto) Murray % (Auto) Eos % (Auto) Baso % (Auto) Neut # (Auto) Lymph # (Auto) Murray # (Auto) Eos # (Auto) Baso # (Auto) Immature Gran # (Auto) Specimen Type Sample Site POC pH POC pCO2 POC pO2 POC HCO3 POC Total CO2 POC Base Excess ABG pH (Temp Correct) ABG pCO2 (Temp Corrct POC ABG pO2 at Pt Temp POC ABG O2 Sat Moises Test O2 Delivery Device POC Sodium Sodium POC Potassium Potassium Chloride Carbon Dioxide Anion Gap BUN Creatinine Est Cr Clr Drug Dosing eGFR BUN/Creatinine Ratio Glucose POC Glucose 91 317 H* 248 H Estimat Average Glucose Hemoglobin A1c Calcium 12/01/24 12/01/24 12/01/24 12:30 11:31 05:18 WBC RBC Hgb POC Hgb Hct POC Hct MCV MCH MCHC RDW Std Deviation RDW Coeff of Morena Plt Count MPV Immature Gran % (Auto) Neut % (Auto) Lymph % (Auto) Murray % (Auto) Eos % (Auto) Baso % (Auto) Neut # (Auto) Lymph # (Auto) Murray # (Auto) Eos # (Auto) Baso # (Auto) Immature Gran # (Auto) Specimen Type Sample Site POC pH POC pCO2 POC pO2 POC HCO3 POC Total CO2 POC Base Excess ABG pH (Temp Correct) ABG pCO2 (Temp Corrct POC ABG pO2 at Pt Temp POC ABG O2 Sat Moises Test O2 Delivery Device POC Sodium Sodium POC Potassium Potassium Chloride Carbon Dioxide Anion Gap BUN Creatinine Est Cr Clr Drug Dosing eGFR BUN/Creatinine Ratio Glucose POC Glucose 279 H 322 H* Estimat Average Glucose 346 Hemoglobin A1c 13.7 H Calcium Diagnostic Findings Lower Extremity CTA 12/01/24 09:57 HISTORY: Left foot wounds. Diabetic feet. TECHNIQUE: Left lower extremity CT was performedwith IV contrast. Images are presented in axial, sagittal, coronal reformats. COMPARISON: None. FINDINGS: The left common iliac and external iliac arteries are patent. The common femoral, deep femoral, superficial femoral arteries are patent. Mild atherosclerotic vascular disease within the distal superficial femoral and popliteal arteries. Mild popliteal artery stenosis. Severe stenosis of the anterior and posterior tibial arteries is multifocal. The peroneal artery has multifocal severe stenosis. Multifocal severe stenosis of the anterior and posterior tibial arteries. Focal age-indeterminate short segment occlusion of the anterior tibial artery on series 3 image 622. Soft tissue edema is seen throughout the leg, foot, and ankle. There is severe muscular atrophy about the lower leg, ankle, and foot. The included small and large bowel loops are normal in caliber. Mild bladder wall thickening. Partially fused left sacroiliac joint. Moderate osteoarthritis of the left hip. The left femur appears intact. Tricompartmental osteoarthritis of the knee. Osteoarthritis of the ankle and hindfoot. Moderate osteoarthritis of the first MTP joint. Degenerative changes of the foot. No acute fracture. No definitive findings of osteomyelitis. IMPRESSION: * Left common iliac, external iliac, and common femoral arteries are patent. Patent superficial femoral and popliteal arteries with multifocal mild atherosclerotic plaque. Mild atherosclerotic plaque along the tibioperoneal trunk. Multifocal severe stenosis throughout the infrapopliteal vessels. The anterior tibial artery has age indeterminant short segment occlusion on series 3 image 62 at the level of the mid lower leg with distal reconstitution. * Severe atrophy involving the musculature of the left lower leg, foot, and ankle. Soft tissue edema throughout the left lower extremity. No drainable fluid collection or abscess is identified. * Mild nonspecific bladder wall thickening could represent cystitis. Recommend correlation with urinalysis. * Additional chronic and/or incidental findings as above. Electronically signed by Reji Hernández 12-01-2024 11:12 AM Chest X-Ray 12/01/24 21:34 Exam(s): XR CXR 1 VIEW EXAM: XR Chest, 1 View CLINICAL HISTORY: Reason for exam: ams. TECHNIQUE: Frontal view of the chest. COMPARISON: 12/30/2023 FINDINGS: Lungs: No consolidation. No overt edema. Pleural space: No pleural effusion. No pneumothorax. Heart: Unremarkable. No cardiomegaly. Tubes, lines and devices: Pacemaker leads in the right atrium and right ventricle. IMPRESSION: No acute findings in the chest. Electronically signed by: Charlie Zurita MD 12/01/24 22:[address] 12/01/24 21:46 Exam(s): CT HEAD Without Contrast EXAM: CT Head Without Intravenous Contrast CLINICAL HISTORY: Reason for exam: ams. TECHNIQUE: Axial computed tomography images of the head/brain without intravenous contrast. CTDI is 66 mGy and DLP is 1100 mGy-cm. Automated exposure control was utilized for the study. A dose lowering technique was utilized adhering to the principles of ALARA. COMPARISON: MRI 01/17/2024 FINDINGS: Brain: No intracranial hemorrhage, mass-effect, or cerebral edema. Atrophy and chronic microvascular ischemic changes. Ventricles: Unremarkable. Bones/joints: Unremarkable. No fracture. Soft tissues: Unremarkable. Sinuses: No acute sinusitis. Mastoid air cells: Unremarkable as visualized. IMPRESSION: 1. No acute intracranial abnormality. Electronically signed by: Charlie Zurita MD 12/01/24 22:53 PM PG Care Time/CCT Total # of Minutes Spent Total Time Spent with Patient: Total time spent is greater than 50% in coordination of care (as documented) at patient's floor/unit and/or counseling patient: Coding Level of Care Code 28618 SUB INP/OBS CARE 3/50MIN Diagnoses Wound, open, foot with complication S91.309A DM (diabetes mellitus), type 2, uncontrolled w/neurologic complication E11.49; E11.65 Factor V Leiden mutation D68.51 Hypertension I10 Mixed restrictive and obstructive lung disease J44.9; J98.4 Morbid obesity E66.01 Hyperglycemia R73.9
[2024-12-02 17:04] LABS: Hematocrit (blood only) 32.5 % (42.0-52.0); Hemoglobin 10.9 g/dl (14.0-18.0)
--- NOTE | 2024-12-02 21:02 | Podiatry Consultation ---
Date of Consultation December 02, 2024 Assessment & Plan (1) Tibial artery occlusion, left: (2) DM (diabetes mellitus), type 2, uncontrolled w/neurologic complication: (3) Other specified peripheral vascular diseases: (4) Chronic ulcer of left foot limited to breakdown of skin: (5) Cellulitis of left foot: Plan Patient examined and evaluated. Superficial skin debrided mechanically at bedside with curette and tissue nipper. Wound/foot will be dressed with betadine wet to dry dressing. Should continue wound care until vascular status more definitively demonstrated/treated. Will reevalute after Dr. Prasad's procedure tomorrow. He may require surgical debridement, but the wound does seem to be in relatively good condition. He may be able to heal this well with better glucose management, revascularization, and wound care. Will continue to follow and assess this wound while inpatient. Thank you for the consult; we are always happy to help. History of Present Illness Reason for Consultation: Left foot ulceration/infection, worsening necrosis Attending Physician: Artem Pierce MD History of Present Illness Patient seen at bedside at lunchtime. States that he has developed this ulceration to his left forefoot over the last few days prior to admission but that is has not improved or worsened. Recently, in the last day or so, he and his RN at bedside state he fell, leading to worsening skin loss. He is scheduled for an arteriogram tomorrow with Dr. Prasad for evaluation of left lower extrem ity arterial occlusion. He denies any specific systemic signs or symptoms of infection, but has noted the skin sloughing off since stubbing the foot. Otherwise, he admits to longstanding uncontrolled diabetes mellitus but is feeling better since admission. States he has not had other foot concerns in the past and has largely taken care of himself, despite his blood sugar concerns. Allergies Allergy/AdvReac Type Severity Reaction Status Date / Time ceftriaxone Allergy Severe Hives Verified 09/12/24 14:52 Sulfa (Sulfonamide Allergy Intermediate HIVES-ITCHY Verified 09/12/24 14:52 Antibiotics) RASH Home Medications Medication Instructions Recorded Confirmed Type acetaminophen 325 mg tablet 650 mg (2 x 325 mg) PO Q6H PRN 02/18/21 09/12/24 Rx pain #30 tabs rivaroxaban 20 mg tablet (Xarelto) 20 mg PO DAILY #90 tabs 03/24/21 09/12/24 Rx ergocalciferol (vitamin D2) 1,250 50,000 unit PO Q7D@0900 #14 caps 06/21/21 09/12/24 Rx mcg (50,000 unit) capsule lancets 30 gauge (AnelTouch Delica #25 ea 04/27/22 09/12/24 Rx Lancets) ketoconazole 2 % topical cream 1 applic topical UD 01/16/24 09/12/24 History metoprolol tartrate 50 mg tablet 50 mg PO UD 01/16/24 09/12/24 History cyanocobalamin (vitamin B-12) 500 500 mcg PO QAM #30 tabs 01/24/24 09/12/24 Rx mcg tablet levetiracetam 500 mg tablet 500 mg PO BID #60 tabs 01/24/24 09/12/24 Rx (Keppra) mupirocin calcium 2 % topical cream 1 applic topical BID #15 grams 02/29/24 09/12/24 Rx furosemide 80 mg tablet 80 mg PO QAM #90 tabs 03/27/24 09/12/24 Rx metformin 1,000 mg tablet 1,000 mg PO BID #180 tabs 03/27/24 09/12/24 Rx lisinopril 10 mg tablet 10 mg PO QAM #90 tabs 04/09/24 09/12/24 Rx blood sugar diagnostic (AnelTouch #300 ea 06/20/24 09/12/24 Rx Ultra Test strips) blood-glucose meter (Accu-Chek #1 ea 06/20/24 09/12/24 Rx Guide Me Glucose Meter) insulin syringe-needle U-100 0.5 #100 ea 06/20/24 09/12/24 Rx mL 31 gauge x 5/16" insulin syringe-needle U-100 1 mL #300 ea 07/15/24 09/12/24 Rx 31 gauge x 5/16" atorvastatin 20 mg tablet 20 mg PO UD 90 days #90 tabs 07/31/24 09/12/24 Rx clotrimazole 1 % topical cream 1 applic topical BID #30 grams 09/12/24 09/12/24 Rx pen needle, diabetic 31 gauge x #200 ea 09/16/24 09/16/24 Rx 1/4" (Comfort EZ Pen Luna) insulin glargine 100 unit/mL (3 50 unit (0.5 mL) subcut QAM #30 mL 09/30/24 09/30/24 Rx mL) subcutaneous pen (Lantus Solostar U-100 Insulin) insulin aspart U-100 100 unit/mL 17 unit (0.17 mL) subcut TID #30 mL 11/07/24 11/07/24 Rx (3 mL) subcutaneous pen (Novolog FlexPen U-100 Insulin aspart) tadalafil 20 mg tablet 20 mg PO DAILY PRN sexual activity 11/14/24 11/14/24 Rx #30 tabs tamsulosin 0.4 mg capsule 0.4 mg PO DAILY #30 caps 11/14/24 11/14/24 Rx fluconazole 200 mg tablet 200 mg PO DAILY #7 tabs 11/15/24 Rx lancets (Accu-Chek Softclix #300 ea 11/26/24 11/26/24 Rx Lancets) lancing device with lancets kit #1 ea 11/26/24 11/26/24 Rx (Accu-Chek Softclix Lancing Device+Lancets kit) Patient History Medical History Hypothermia Fracture of cervical vertebra, C6 C5 cervical fracture C2 cervical fracture Status post fall Acute respiratory failure with hypoxia Alcohol intoxication History of DVT (deep vein thrombosis) Complete heart block Hives Supratherapeutic INR On anticoagulant therapy warfarin daily Bradycardia Hyperglobulinemia DVT, lower extremity ? pt denies Surgical History Status post appendectomy History of colonoscopy History of wisdom tooth extraction History of tooth extraction S/P tonsillectomy Family History Father Coronary heart disease Myocardial infarction Mother COPD (chronic obstructive pulmonary disease) Stroke Family history of diabetes mellitus Diabetes Brother Prostate cancer Coronary heart disease Grandfather (Paternal) Family history of diabetes mellitus Grandmother (Paternal) Family history of diabetes mellitus Other No family history of adverse response to anesthesia Denies family history of Ovarian cancer Breast cancer Colorectal cancer Social History Smoking Status: Never smoker Tobacco Type: Smokeless Tobacco (Dip or Chew) Second Hand Exposure: No; Do You Dip or Chew Tobacco: Yes; Hx Alcohol Use: No Hx Substance Use: No Preferred Language: Hungarian Communication Ability: Effective Visual Impairment: Limited Hearing Ability: Normal Electron Microscopist Required: No Beliefs That Will Affect Care: None marital status: Life Partner Current Living Situation: Significant Other Current Living Situation Comment: Lives with sister current occupational status: retired and disabled current occupation: [employer] Feels Safe at Home: Yes Childhood Exposure to Second-Hand Smoke: No Diet: diabetic caffeine: Yes Dental Care, Regularly: No Physical Activity Frequency: Does not Exercise Seatbelt Use: always Assistive Devices: Walker Review of Systems Review of Systems: All systems reviewed & are unremarkable except as noted in HPI & below Constitutional: no fever, no chills and no fatigue Eyes: no problem reported Ear, Nose, Mouth, Throat: no problem reported Respiratory: no problem reported Cardiovascular: + edema; no problem reported Gastrointestinal: no nausea, no vomiting and no problem reported Musculoskeletal: no problem reported Integumentary: + skin ulcer, + wounds and + erythema Neurologic: + loss of sensation, + numbness and + pa resthesia; no generalized weakness Psychiatric: no problem reported Physical Exam Physical Exam: Left lower extremity focused exam: DP/PT pulses non-palpable. CFT brisk to the digits. Degloving noted to left forefoot, with loosened epidermis to the lateral 1st toe extending to the 3rd and fourth toes. This was able to be debrided at bedside with more superficial ulceration underlying. This does seem consistent with immature epithelium rather than dry necrosis or gangrene. No dalton purulence noted. No ascending cellulitis. Constitutional: WD/WN, vitals as above + ill appearing, + morbidly obese and + lethargic; no acute distress Eyes: PERRL, conjunctivae normal, anicteric sclerae ENMT: external ear and nose normal, oropharynx normal Mouth: + poor dentition Neck: trachea midline, no thyromegaly normal visual inspection Respiratory: normal respiratory effort; no respiratory distress Cardiovascular: Rate/Rhythm: regular rate and regular rhythm Vessels: + posterior tibial pulses abnormal and + dorsalis pedis pulses abnormal Chest (Breasts): Chest: normal inspection of chest Gastrointestinal (Abdomen): Inspection/Auscultation: abdomen normal to inspection Percussion/Palpation: + abdomen tender and abdomen soft Musculoskeletal: no cyanosis or clubbing, extremities motor strength 5/5 Head/Neck/Chest: normocephalic and head atraumatic Extremities: extremities normal to inspection Skin: + ulcer, + wound, + skin atrophy, + esch ar and + nails dystrophic Neurologic: awake; no focal motor deficits Psychiatric: A+Ox3, euthymic affect Results & Data Vital Signs (Past 12 Hours) Vital Signs Temp Pulse Resp BP BP Pulse Ox O2 Del Method 12/02/24 19:12 36.7 C 59 L 18 94/43 L 98 Room Air 12/02/24 10:45 66 109/66 12/02/24 09:39 85/49 L 99/62 L 95 Room Air
[2024-12-02 23:52] LABS: Hematocrit (blood only) 33.2 % (42.0-52.0); Hemoglobin 11.1 g/dl (14.0-18.0)
--- NOTE | 2024-12-03 09:06 | History & Physical Bridge Note ---
Date of Service December 03, 2024 History & Physical Bridge Note Patient for left lower extremity arteriogram with possible intervention. I have discussed the risks options and benefits of the procedure with the patient. The patient understands the risks options and benefits and agrees to the procedure. I have examined the patient, reviewed the History & Physical and in the interval since the performance of the History & Physical I have noted the following changes of clinical significance: no changes noted
[2024-12-03] MEDS: SODIUM CHLORIDE 0.9% 1,000 ML IV SCH ×2 (09:09→15:21)
[2024-12-03 09:19] LABS: Hematocrit (blood only) 34.6 % (42.0-52.0); Hemoglobin 11.5 g/dl (14.0-18.0); Immature Granulocytes # (auto) 0.04 K/uL (0.01-0.20); Immature Granulocytes % (auto) 0.4 %; Mean Corpuscular Hemoglobin 29.0 pg (25.0-34.0); Mean Corpuscular Volume 87.2 fL (80.0-100.0); Platelet Count 233 K/uL (130-400); RDW Standard Deviation 40.8 fL (36.4-46.3); Red Blood Count 3.97 M/uL (4.70-6.10); White Blood Count 9.08 K/ul (4.8-10.8)
[2024-12-03 09:35] LABS: Alanine Aminotransferase 6.0 U/L (7-52); Albumin Globulin Ratio 0.9 (0.9-2); Albumin Level 2.8 gm/dl (3.4-5.0); Alkaline Phosphatase 66.0 U/L (34-104); Anion Gap 7.0 (3-11); Bilirubin,Total 0.5 mg/dl (0.2-1.0); Blood Urea Nitrogen 14.0 mg/dl (6-23); Calcium 8.4 mg/dl (8.6-10.3); Carbon Dioxide 26.0 mmol/L (21-32); Chloride 105.0 mmol/L (98-107); Creatinine Clr Calc Pharmacy 152.1 ml/min; Globulin 3.0 gm/dl (2.5-4.0); Glucose 162.0 mg/dl (70-99(Fasting)); Potassium 3.9 mmol/L (3.5-5.1); Sodium 138.0 mmol/L (136-145); Total Protein 5.8 gm/dl (6.0-8.3)
[2024-12-03] MEDS ORDERED: VISIPAQUE IV PRN (10:10)
[2024-12-03] MEDS: MIDAZOLAM HCL 1 MG/ML 2ML VIAL ONE ×4 (10:30→12:43)
[2024-12-03] MEDS: HEPARIN SOD (PORCINE) 1000 UNIT/ML ONE ×2 (10:32→14:12)
[2024-12-03] MEDS: HEPARIN SOD (PORCINE) 1000 UNIT/ML IV ONE ×2 (11:45)
--- NOTE | 2024-12-03 13:11 | Hospitalist Progress Note ---
Date of Service December 03, 2024 Assessment & Plan (1) Wound, open, foot with complication: (2) DM (diabetes mellitus), type 2, uncontrolled w/neurologic complication: (3) Factor V Leiden mutation: (4) Hypertension: (5) Mixed restrictive and obstructive lung disease: (6) Morbid obesity: (7) Hyperglycemia: Plan #Foot blistering managing as cellulitis, but also quite concerning for arterial insufficiency given that it does not really look like classic cellulitis, there is a fairly notable line of demarcation, complicated by massively uncontrolled diabetes. - Continue antibiotic coverage for MSSA for now Lower extremity CT angio as noted below. - Revacularization per Dr Prasad, procedure today, see podiatry notes supportive cares with current plan #Hypotension: -Check orthostatic VS, ongoing volume expansion as tolerated. MAP > 60. - stable last few checks #Anemia - no evidence of blood loss, likely dilutional, hgb after initial decrease - continue anticiagulants per prior orders. - AM recheck, continue tele #Severe PAD -New, Confirmed and severe by CT Angio with Multifocal severe stenosis throughout the infrapopliteal vessels. contributing to blistering as above -consult to vascular surgery, secondary prevention as noted below -Continue Xarelto and ASA #Massively uncontrolled type 2 diabetes #Hyperosmolar hyperglycemic state #With Complications (longstanding neuropathy,+/- retinopathy) - continue Lantus plus SS, will titrate to meal time insulin based on oral intake, expect quite a bit of variability in the near term with celulitis, vascular d/z and severity of recent hyperglycemia - generally within goal #Hyponatremia - WNL after compensation for elevated blood sugars, normalizing this morning - Stable #HLD - increase to high dose given PAD #Factor V Leiden - chronically anticoagulated with Xarelto, continue #Morbid obesity with BMI of 33.5/CHRISTIANO/mixed restrictive and obstructive lung disease Will ask for CPAP at bedtime #hypertensioncontinue lisinopril and metoprolol. Follow pressures, follow BMP periodically #seizure disordercontinue Keppra #B12 deficiencyreplace #BPH with LUTScontinue Flomax #FEN - HH and DM2 diet, monitor intake #CODE STATUS - Full Code per his wishes Admission and Anticipated Discharge Date Admission Date: December 01, 2024 Results & Data Results & Data Vital Signs (Past 12 Hours) Vital Signs Temp Pulse Pulse Pulse Resp BP BP 12/03/24 13:00 60 18 12/03/24 13:00 60 18 12/03/24 12:55 60 18 12/03/24 12:50 60 18 12/03/24 12:45 60 18 12/03/24 12:40 60 18 12/03/24 12:35 60 18 12/03/24 12:30 60 18 12/03/24 12:25 60 18 12/03/24 12:20 60 18 12/03/24 12:15 60 18 12/03/24 12:10 60 18 12/03/24 12:05 60 18 12/03/24 12:00 60 18 12/03/24 11:55 60 18 12/03/24 11:50 61 18 12/03/24 11:45 60 18 12/03/24 11:40 60 18 12/03/24 11:35 60 18 12/03/24 11:30 60 18 12/03/24 11:25 62 18 12/03/24 11:20 60 18 12/03/24 11:15 60 18 12/03/24 11:10 60 18 12/03/24 11:05 60 18 12/03/24 11:00 60 18 12/03/24 10:55 60 18 12/03/24 10:50 60 18 12/03/24 10:45 60 18 12/03/24 10:40 60 18 12/03/24 10:35 60 18 12/03/24 10:30 60 18 12/03/24 10:25 60 18 12/03/24 10:20 60 18 12/03/24 10:15 18 12/03/24 10:10 60 18 138/72 12/03/24 10:05 60 18 136/70 12/03/24 09:17 36.9 C 65 18 12/03/24 07:19 36.9 C 61 18 110/65 12/03/24 07:00 60 12/03/24 03:15 36.5 C 60 18 112/61 BP Pulse Ox O2 Del Method O2 Flow Rate 12/03/24 13:00 120/56 L 100 Oxymask 4 12/03/24 13:00 119/65 100 Oxymask 4 12/03/24 12:55 107/65 100 Oxymask 4 12/03/24 12:50 121/71 100 Oxymask 4 12/03/24 12:45 100/57 L 100 Oxymask 4 12/03/24 12:40 116/71 100 Oxymask 4 12/03/24 12:35 128/66 100 Oxymask 4 12/03/24 12:30 125/74 100 Oxymask 4 12/03/24 12:25 142/73 H 100 Oxymask 4 12/03/24 12:20 151/80 H 100 Oxymask 4 12/03/24 12:15 135/67 100 Oxymask 4 12/03/24 12:10 154/75 H 100 Oxymask 4 12/03/24 12:05 134/71 100 Oxymask 4 12/03/24 12:00 126/70 100 Oxymask 4 12/03/24 11:55 125/67 100 Oxymask 4 12/03/24 11:50 129/71 100 Oxymask 4 12/03/24 11:45 126/70 98 Oxymask 4 12/03/24 11:40 124/72 100 Oxymask 4 12/03/24 11:35 118/67 100 Oxymask 4 12/03/24 11:30 132/72 100 Oxymask 4 12/03/24 11:25 141/69 H 100 Oxymask 4 12/03/24 11:20 123/75 100 Oxymask 4 12/03/24 11:15 103/64 100 Oxymask 4 12/03/24 11:10 105/60 100 Oxymask 4 12/03/24 11:05 97/59 L 100 Oxymask 4 12/03/24 11:00 130/64 100 Oxymask 4 12/03/24 10:55 138/74 100 Oxymask 4 12/03/24 10:50 144/71 H 100 Oxymask 4 12/03/24 10:45 126/70 100 Oxymask 4 12/03/24 10:40 109/61 100 Oxymask 4 12/03/24 10:35 108/58 L 100 Oxymask 4 12/03/24 10:30 110/62 100 Oxymask 4 12/03/24 10:25 145/71 H 98 Oxymask 4 12/03/24 10:20 134/70 100 Oxymask 4 12/03/24 10:15 138/69 100 Oxymask 4 12/03/24 10:10 100 Oxymask 4 12/03/24 10:05 100 Oxymask 4 12/03/24 09:17 106/60 97 Room Air 12/03/24 07:19 110/55 L 98 Room Air 12/03/24 07:00 12/03/24 03:15 96 Room Air PG Care Time/CCT Total # of Minutes Spent Total Time Spent with Patient: Total time spent is greater than 50% in coordination of care (as documented) at patient's floor/unit and/or counseling patient: Coding Level of Care Code 17202 SUB INP/OBS CARE 235MIN Diagnoses Wound, open, foot with complication S91.309A DM (diabetes mellitus), type 2, uncontrolled w/neurologic complication E11.49; E11.65 Factor V Leiden mutation D68.51 Hypertension I10 Mixed restrictive and obstructive lung disease J44.9; J98.4 Morbid obesity E66.01 Hyperglycemia R73.9
--- NOTE | 2024-12-03 13:14 | Procedure Note ---
Angiogram Post Procedure Fluoroscopy Time (minutes): 38.2 Radiation (mGy): 144 Contrast: 165 Post Operative Report Pre & Post Diagnosis Operation Date: 12/03/24 08:00 Pre-Op Diagnosis: Tibial Artery Occlusion Post-Op Diagnosis: Tibial Artery Occlusion I identified the patient and participated in the time-out.: Yes Procedure Operation Date: 12/03/24 08:00 Actual Procedures p Percutaneous Transluminal Angioplasty and Stenting of Anterior and Posterior Tibial Artery, Lithotripsy of Anterior and Posterior Tibial Artery, Mechanical Closure and Ultrasound Guidance of Right Common Femoral Artery, Moderate Sedation [id number](Left) - Mamadou Prasad MD Surgeon Mamadou Prasad MD National Van Owner Operator none Estimated Blood Loss 50 Findings Consistent with Post-Op Diagnosis Specimens none Anesthesia Type RN Sedation Complications none Disposition Accompanied Patient To Recovery: No Disposition: Recovery Room Indications This is a 69-year-old gentleman with severe ischemia of the left lower extremity. He was found to have significant infrapopliteal artery occlusive disease with occlusion of his peroneal and significantly diseased anterior and posterior tibial arteries. Arteriography possible invention was recommended. I have discussed the risks options and benefits of the procedure with the patient. The patient understands the risks options and benefits and agrees to the procedure. Description of Procedure Patient was taken the angio suite placed spine position. After the groins were prepped and draped in a sterile manner. A timeout was performed and patient identified. Local anesthetic was administered to the right groin. Ultrasound was then used to locate the right common femoral artery. It was patent. We then used ultrasound guidance to puncture the right common femoral artery. 5 Angolan sheath was inserted. We then used an 035 Glidewire direct catheter to cannulate the left side from the right. Rim cath was then passed onto the external iliac. Arteriography was performed which showed the common femoral superficial femoral arteries. Patent. The popliteal artery was also patent. There is significant occlusive disease in the posterior tibial and anterior tibial arteries. The peroneal artery is occluded. At this point we used a stiff Glidewire and exchanged the 5 Angolan sheath with a 6 Angolan destination. We then used a V18 and angled glide cath and cannulated the anterior tibial artery. We were able to pass a 3 x 80 shockwave catheter performed lithotripsy in the left anterior artery. Once this was completed we placed a 2.5 x 38 followed by a 3.38 followed by a 3.5 x 38 infrapopliteal esprit stents. We then pulled the wire back and cannulated the posterior tibial artery. Again we used a 3 x 80 shockwave and lithotripsy the lesions in the posterior tibial artery. On this side we used a 3 x 28 followed by 2.5 x 38 stent. Using a 2.5 x 16 3 x 120 balloon these stents were balloon after they were deployed. Good flow was seen through the infrapopliteal arteries at that time. The close 3 5 wire was reinserted in the destination sheath. The destination sheath was then pulled and a StarClose device was used to close the puncture site. Hemostasis was noted.The patient left the operation room in satisfactory condition and tolerated the procedure well. All needle and sponge counts were correct at the end of the procedure. I attest to the content of the Intraoperative Record and any orders documented therein. Any exceptions are noted below.
--- NOTE | 2024-12-03 13:20 | Post Anesthesia Assessment ---
Date of Service December 03, 2024 Post Sedation Assessment Vital Signs Temp Pulse Pulse Pulse Resp BP BP 12/03/24 13:00 60 18 12/03/24 13:00 60 18 12/03/24 12:55 60 18 12/03/24 12:50 60 18 12/03/24 12:45 60 18 12/03/24 12:40 60 18 12/03/24 12:35 60 18 12/03/24 12:30 60 18 12/03/24 12:25 60 18 12/03/24 12:20 60 18 12/03/24 12:15 60 18 12/03/24 12:10 60 18 12/03/24 12:05 60 18 12/03/24 12:00 60 18 12/03/24 11:55 60 18 12/03/24 11:50 61 18 12/03/24 11:45 60 18 12/03/24 11:40 60 18 12/03/24 11:35 60 18 12/03/24 11:30 60 18 12/03/24 11:25 62 18 12/03/24 11:20 60 18 12/03/24 11:15 60 18 12/03/24 11:10 60 18 12/03/24 11:05 60 18 12/03/24 11:00 60 18 12/03/24 10:55 60 18 12/03/24 10:50 60 18 12/03/24 10:45 60 18 12/03/24 10:40 60 18 12/03/24 10:35 60 18 12/03/24 10:30 60 18 12/03/24 10:25 60 18 12/03/24 10:20 60 18 12/03/24 10:15 18 12/03/24 10:10 60 18 138/72 12/03/24 10:05 60 18 136/70 12/03/24 09:17 36.9 C 65 18 12/03/24 07:19 36.9 C 61 18 110/65 12/03/24 07:00 60 12/03/24 03:15 36.5 C 60 18 112/61 12/02/24 23:29 36.7 C 60 18 95/57 L 12/02/24 21:48 60 12/02/24 19:12 36.7 C 59 L 18 94/43 L BP Pulse Ox O2 Del Method O2 Flow Rate 12/03/24 13:00 120/56 L 100 Oxymask 4 12/03/24 13:00 119/65 100 Oxymask 4 12/03/24 12:55 107/65 100 Oxymask 4 12/03/24 12:50 121/71 100 Oxymask 4 12/03/24 12:45 100/57 L 100 Oxymask 4 12/03/24 12:40 116/71 100 Oxymask 4 12/03/24 12:35 128/66 100 Oxymask 4 12/03/24 12:30 125/74 100 Oxymask 4 12/03/24 12:25 142/73 H 100 Oxymask 4 12/03/24 12:20 151/80 H 100 Oxymask 4 12/03/24 12:15 135/67 100 Oxymask 4 12/03/24 12:10 154/75 H 100 Oxymask 4 12/03/24 12:05 134/71 100 Oxymask 4 12/03/24 12:00 126/70 100 Oxymask 4 12/03/24 11:55 125/67 100 Oxymask 4 12/03/24 11:50 129/71 100 Oxymask 4 12/03/24 11:45 126/70 98 Oxymask 4 12/03/24 11:40 124/72 100 Oxymask 4 12/03/24 11:35 118/67 100 Oxymask 4 12/03/24 11:30 132/72 100 Oxymask 4 12/03/24 11:25 141/69 H 100 Oxymask 4 12/03/24 11:20 123/75 100 Oxymask 4 12/03/24 11:15 103/64 100 Oxymask 4 12/03/24 11:10 105/60 100 Oxymask 4 12/03/24 11:05 97/59 L 100 Oxymask 4 12/03/24 11:00 130/64 100 Oxymask 4 12/03/24 10:55 138/74 100 Oxymask 4 12/03/24 10:50 144/71 H 100 Oxymask 4 12/03/24 10:45 126/70 100 Oxymask 4 12/03/24 10:40 109/61 100 Oxymask 4 12/03/24 10:35 108/58 L 100 Oxymask 4 12/03/24 10:30 110/62 100 Oxymask 4 12/03/24 10:25 145/71 H 98 Oxymask 4 12/03/24 10:20 134/70 100 Oxymask 4 12/03/24 10:15 138/69 100 Oxymask 4 12/03/24 10:10 100 Oxymask 4 12/03/24 10:05 100 Oxymask 4 12/03/24 09:17 106/60 97 Room Air 12/03/24 07:19 110/55 L 98 Room Air 12/03/24 07:00 12/03/24 03:15 96 Room Air 12/02/24 23:29 95 Room Air 12/02/24 21:48 12/02/24 19:12 98 Room Air Recovery Score Activity: Moves 4 extremities Respiration: Deep Breath/Cough Circulation: +/-20% PreAnes Value Consciousness: Fully Awake Oxygen Saturation: O2 needed for >90% Post Anesthesia Score: 9 Discharge Sedation Level of Care: Fast Track Phase II Post Sedation Plan On clinical assessment, the patient appears to have tolerated the sedation without complications. Patient is recovering as anticipated. Patient will continue to be monitored by nursing and may be discharged when sedation discharge criteria are met per below protocol. Upon Completions of procedure up to 15 minutes continue every 5 minute vital signs and the P.A.R. score; then discharge to a Phase I or Fast Track to Phase II per the following guidelines: * Discharge Patient to appropriate Phase II area if PAR is 8 or greater or return to pre- procedure baseline. The post - procedure orders will be as directed. * If PAR score is less than 8 or not return to pre-procedure baseline then patient will follow Phase I monitoring till PAR is reached for Phase II. The Phase I may be done in procedure room or may call to secure a Phase I area. * If naloxone or flumazenil are used for reversal, hold in Phase I for continued monitoring from when last reversal dose was given for a minimum of 60 minutes or longer pending the nurse and/or physician discretion of patient condition before discharge to Phase II. Please call the Sedation Physician to re-evaluate and complete post-note for discharge to Phase II area. Do NOT discharge from procedure sedation or Phase 1 until post- sedation evaluation note is complete by procedure /sedation MD Sedation Discharge Instructions to be given to the patient at discharge to home.
--- NOTE | 2024-12-03 13:31 | Post Operative Brief Note ---
Immediate Post Op Note Date of Surgery December 03, 2024 Pre & Post Diagnosis Operation Date: 12/03/24 08:00 Pre-Op Diagnosis: Tibial Artery Occlusion Post-Op Diagnosis: Tibial Artery Occlusion I identified the patient and participated in the time-out.: Yes Procedure Operation Date: 12/03/24 08:00 Actual Procedures p Percutaneous Transluminal Angioplasty and Stenting of Anterior and Posterior Tibial Artery, Lithotripsy of Anterior and Posterior Tibial Artery, Mechanical Closure and Ultrasound Guidance of Right Common Femoral Artery, Moderate Sedation 10:20-13:04(Left) - Mamadou Prasad MD Surgeon Mamadou Prasad MD Software Applications Architect none Estimated Blood Loss 50 Findings Consistent with Post-Op Diagnosis Anesthesia Type RN Sedation Complications none Disposition Accompanied Patient To Recovery: No Disposition: Recovery Room
[2024-12-03] MEDS: LIDOCAINE 1% LOCAL 20 ML VIAL ONE (14:12)
[2024-12-03] MEDS: ATORVASTATIN 40 MG TAB PO SCH (16:52)
[2024-12-03] MEDS: NYSTATIN POWDER 15GM BTL EXT PRN (20:24)
--- NOTE | 2024-12-04 09:33 | Surgery Progress Note ---
Date of Service December 04, 2024 Assessment & Plan (1) Peripheral arterial disease: Plan: Pt now POD #1 after LLE angio with PHYSICIAN GENERAL PRACTICE/stenting of PT and AT arteries. Pain improved post op. Recommend continued care with podiatry for foot/toe viability. Will see in office in 2 weeks for reeval. Admission and Anticipated Discharge Date Admission Date: December 01, 2024 Subjective 69 yo m POD #1 after LLE angio with PHYSICIAN GENERAL PRACTICE/stenting of PT and AT arteries, seen in f/u today. Pt states L toe/foot pain is improved, but not completely resolved. No new complaints. Review of Systems Review of Systems: All systems reviewed & are unremarkable except as noted in HPI & below Physical Exam Constitutional: + morbidly obese and comfortable; + not well groomed and not in distress Cardiovascular: Vessels: posterior tibial pulses present (dopplerable) and dorsalis pedis pulses present (dopplerable distal AT, not DP); + abnormal gamaliel pheral pulses Skin: + erythema (L toes,) Results & Data Vital Signs (Past 12 Hours) Vital Signs Temp Pulse Pulse Resp BP Pulse Ox O2 Del Method 12/04/24 08:25 37.3 C 69 18 118/48 L 94 Room Air 12/04/24 03:11 36.8 C 63 16 110/59 L 95 Room Air 12/03/24 23:22 36.7 C 60 18 111/62 96 Room Air 12/03/24 22:01 61
--- NOTE | 2024-12-04 14:18 | Hospitalist Progress Note ---
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 - Continue antibiotic coverage for MSSA for now Lower extremity CT angio as noted below. - Revacularization per Dr Prasad as above - Continue cefazolin, serial inflammatory markers, continue to follow cultures #Hypotension: -Check orthostatic VS, ongoing volume expansion as tolerated. MAP > 60. - stable #Anemia - no evidence of blood loss, likely dilutional, hgb after initial decrease - continue anticiagulants per prior orders. - daily monitor anemia ing 11.5 today #Severe PAD -New, Confirmed and severe by CT Angio with Multifocal severe stenosis throughout the infrapopliteal vessels. contributing to blistering as above -consult to vascular surgery, secondary prevention as noted below -Continue Xarelto and ASA #Massively uncontrolled type 2 diabetes #Hyperosmolar hyperglycemic state #With Complications (longstanding neuropathy,+/- retinopathy) - continue Lantus plus SS, will titrate to meal time insulin based on oral intake, expect quite a bit of variability in the near term with celulitis, vascular d/z and severity of recent hyperglycemia - generally within goal #Hyponatremia - WNL after compensation for elevated blood sugars, normalizing this morning - Stable #HLD - increase to high dose given PAD #Factor V Leiden - chronically anticoagulated with Xarelto, continue #Morbid obesity with BMI of 33.5/CHRISTIANO/mixed restrictive and obstructive lung disease Will ask for CPAP at bedtime #hypertensioncontinue lisinopril and metoprolol. Follow pressures, follow BMP periodically #seizure disordercontinue Keppra #B12 deficiencyreplace #BPH with LUTScontinue Flomax #FEN - HH and DM2 diet, monitor intake #CODE STATUS - Full Code per his wishes Admission and Anticipated Discharge Date Admission Date: December 01, 2024 Subjective Doing okay this morning. Pain overall improved. No new concerns per patient. We discussed further imaging versus ongoing evaluation for his left toe wound. Otherwise no events or concerns per nursing Physical Exam Physical Exam: General: A&Ox3. NAD. Cooperative. HEENT: Atraumatic, normocephalic. Vision and hearing grossly intact. Pupils equal and reactive to light, sclera clear and anicteric Pulm: CTAB A&P. -wheezes, -rales, -rhonchi. No increased work of breathing. No respiratory distress. Cardiac: RRR. -mrg. Radial pulses intact and symmetrical. Abdominal: Nontender, nondistended, soft. BS present. Ext: No Edema, Moves all extremities equally NEURO: A&O as above, no focal deficits Skin: warm, moist. Results & Data Results & Data Vital Signs (Past 12 Hours) Vital Signs Temp Pulse Resp BP Pulse Ox O2 Del Method 12/04/24 11:43 37.2 C 59 L 20 112/59 L 95 Room Air 12/04/24 10:57 Room Air 12/04/24 08:25 37.3 C 69 18 118/48 L 94 Room Air 12/04/24 03:11 36.8 C 63 16 110/59 L 95 Room Air Laboratory Results 12/04/24 12/04/24 12/03/24 11:13 07:31 20:30 POC Glucose 298 H 221 H 270 H 12/03/24 16:24 POC Glucose 204 H PG Care Time/CCT Total # of Minutes Spent Total Time Spent with Patient: Total time spent is greater than 50% in coordination of care (as documented) at patient's floor/unit and/or counseling patient: Coding Level of Care Code 21564 SUB INP/OBS CARE 2/35MIN Diagnoses Wound, open, foot with complication S91.309A DM (diabetes mellitus), type 2, uncontrolled w/neurologic complication E11.49; E11.65 Factor V Leiden mutation D68.51 Hypertension I10 Mixed restrictive and obstructive lung disease J44.9; J98.4 Morbid obesity E66.01 Hyperglycemia R73.9
--- NOTE | 2024-12-04 16:45 | Podiatry Progress Note ---
Date of Service December 04, 2024 Assessment & Plan (1) Tibial artery occlusion, left: (2) DM (diabetes mellitus), type 2, uncontrolled w/neurologic complication: (3) Other specified peripheral vascular diseases: (4) Chronic ulcer of left foot limited to breakdown of skin: (5) Cellulitis of left foot: Plan Patient examined and evaluated. - His foot was reassessed in these areas of pottential necrosis are concerning. They may develop into more extensive dry gangrene, which could necessitate a transmetatarsal rotation given the level of injjury. - This may improve with his recent revascularization and without any evidence of acute infection, could be treated conservatively with time. - He would benefit from continued local wound care, with orders for Xeroform and sterile dressings to be placed daily. - If he remained stable from a vascular standpoint, we are happy to follow up with him outpatient to monitor for any changes that would require dictation at that point. - Patient is amenable to this as he would prefer to avoid any surgery if possible. - For now, will continue to follow while he remains in the hospital but he is cleared to be discharged home from our standpoint once he is stable per other specialties. Admission and Anticipated Discharge Date Admission Date: December 01, 2024 Subjective Patient seen at bedside one day status post left lower extremity revascularization/intervention. He admits to some pain to the lower extremity but overall feeling better than on admission. Denies any new acute concerns otherwise. Review of Systems Constitutional: no fever, no chills and no fatigue Eyes: no problem reported Ear, Nose, Mouth, Throat: no problem reported Respiratory: no problem reported Cardiovascular: + edema; no problem reported Gastrointestinal: no nausea, no vomiting and no problem reported Musculoskeletal: no problem reported Integumentary: + skin ulcer, + wounds and + erythema Neurologic: + loss of sensation, + numbness and + pa resthesia; no generalized weakness Psychiatric: no problem reported Physical Exam Physical Exam: Left lower extremity focused exam: DP/PT pulses non-palpable. CFT brisk to the digits. Degloving noted to left forefoot, with loosened epidermis to the lateral 1st toe extending to the 3rd and fourth toes. There is increasing areas of potential necrosis to the first, third, and fifth toes with potential for dry necrosis. This could be a result of the long-standing vascular disease or result of shower emboli from the procedure. Either could explain this. There is still no significant evidence of deeper infection including no deep ulceration and no probing to the bone. Constitutional: WD/WN, vitals as above + ill appearing, + morbidly obese, + obese and + lethargic; no acute distress Eyes: PERRL, conjunctivae normal, anicteric sclerae ENMT: external ear and nose normal, oropharynx normal Mouth: + poor dentition Neck: trachea midline, no thyromegaly normal visual inspection Respiratory: normal respiratory effort; no respiratory distress Cardiovascular: Rate/Rhythm: regular rate and regular rhythm Vessels: + posterior tibial pulses abnormal and + dorsalis pedis pulses abnormal Chest (Breasts): Chest: normal inspection of chest Gastrointestinal (Abdomen): Inspection/Auscultation: abdomen normal to inspection Percussion/Palpation: + abdomen tender and abdomen soft Musculoskeletal: no cyanosis or clubbing, extremities motor strength 5/5 Head/Neck/Chest: normocephalic and head atraumatic Extremities: extremities normal to inspection Skin: + ulcer, + wound, + skin atrophy, + esch ar and + nails dystrophic Neurologic: awake; no focal motor deficits Psychiatric: A+Ox3, euthymic affect Results & Data Results & Data Vital Signs (Past 12 Hours) Vital Signs Temp Pulse Resp BP Pulse Ox O2 Del Method 12/04/24 11:43 37.2 C 59 L 20 112/59 L 95 Room Air 12/04/24 10:57 Room Air 12/04/24 08:25 37.3 C 69 18 118/48 L 94 Room Air
[2024-12-05 08:04] LABS: Hematocrit (blood only) 33.7 % (42.0-52.0); Hemoglobin 11.6 g/dl (14.0-18.0); Immature Granulocytes # (auto) 0.18 K/uL (0.01-0.20); Immature Granulocytes % (auto) 1.9 %; Mean Corpuscular Hemoglobin 29.7 pg (25.0-34.0); Mean Corpuscular Volume 86.2 fL (80.0-100.0); Platelet Count 267 K/uL (130-400); RDW Standard Deviation 39.3 fL (36.4-46.3); Red Blood Count 3.91 M/uL (4.70-6.10); White Blood Count 9.57 K/ul (4.8-10.8)
[2024-12-05] MEDS: CLOPIDOGREL BISULFATE 75 MG TAB PO SCH (08:10)
[2024-12-05 08:26] LABS: Alanine Aminotransferase 4.0 U/L (7-52); Albumin Globulin Ratio 0.9 (0.9-2); Albumin Level 2.9 gm/dl (3.4-5.0); Alkaline Phosphatase 70.0 U/L (34-104); Anion Gap 7.0 (3-11); Bilirubin,Total 0.5 mg/dl (0.2-1.0); Blood Urea Nitrogen 16.0 mg/dl (6-23); Calcium 8.7 mg/dl (8.6-10.3); Carbon Dioxide 29.0 mmol/L (21-32); Chloride 101.0 mmol/L (98-107); Creatinine Clr Calc Pharmacy 132.4 ml/min; Globulin 3.4 gm/dl (2.5-4.0); Glucose 98.0 mg/dl (70-99(Fasting)); Magnesium 2.1 mg/dl (1.7-2.4); Potassium 3.8 mmol/L (3.5-5.1); Sodium 137.0 mmol/L (136-145); Total Protein 6.3 gm/dl (6.0-8.3)
--- NOTE | 2024-12-05 13:06 | Hospitalist Progress Note ---
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 # left lower extremity cellulitis/ulceration #Status postdebridement managing as cellulitis, but also quite concerning for arterial insufficiency given that it does not really look like classic cellulitis, there is a fairly notable line of demarcation, complicated by massively uncontrolled diabetes. - Continue antibiotic coverage for MSSA for now Lower extremity CT angio as noted below. - Revacularization per Dr Prasad as above - Continue cefazolin - CRP up a bit, Prcal remains negative. #Hypotension: -Check orthostatic VS, ongoing volume expansion as tolerated. MAP > 60. - stable, asymptomatic, no tachycardia, taking oral intake #Anemia - no evidence of blood loss, likely dilutional, hgb after initial decrease - continue anticoagulants per prior orders. - daily monitor anemia stable at 11.6 today #Severe PAD -New, Confirmed and severe by CT Angio with Multifocal severe stenosis throughout the infrapopliteal vessels. contributing to blistering as above -consult to vascular surgery, secondary prevention as noted below -Continue Xarelto and ASA #Massively uncontrolled type 2 diabetes #Hyperosmolar hyperglycemic state #With Complications (longstanding neuropathy,+/- retinopathy) - continue Lantus plus SS, will titrate to meal time insulin based on oral intake, expect quite a bit of variability in the near term with celulitis, vascular d/z and severity of recent hyperglycemia - generally within goal #Hyponatremia - WNL after compensation for elevated blood sugars, normalizing this morning - Stable #HLD - increase to high dose given PAD #Factor V Leiden - chronically anticoagulated with Xarelto, continue #Morbid obesity with BMI of 33.5/CHRISTIANO/mixed restrictive and obstructive lung disease Will ask for CPAP at bedtime #hypertensioncontinue lisinopril and metoprolol. Follow pressures, follow BMP periodically #seizure disordercontinue Keppra #B12 deficiencyreplace #BPH with LUTScontinue Flomax #FEN - HH and DM2 diet, monitor intake #CODE STATUS - Full Code per his wishes Admission and Anticipated Discharge Date Admission Date: December 01, 2024 Subjective Doing okay this morning. Sitting up at the bedside to be a fairly good breakfas t. No new generalized signs of illness no new complaints or concerns. He has been up walking around a small amount. Nursing staff with no reported events or specific concerns Physical Exam Physical Exam: General: A&Ox3. NAD. Cooperative. HEENT: Atraumatic, normocephalic. Vision and hearing grossly intact. Pupils equal and reactive to light, sclera clear and anicteric Pulm: CTAB A&P. -wheezes, -rales, -rhonchi. No increased work of breathing. No respiratory distress. Cardiac: RRR. -mrg. Radial pulses intact and symmetrical. Abdominal: Nontender, nondistended, soft. BS present. Ext: No Edema, Moves all extremities equally, bandaged dressing over the foot unchanged, clear dry intact NEURO: A&O as above, no focal deficits Skin: warm, moist. Results & Data Results & Data Vital Signs (Past 12 Hours) Vital Signs Temp Pulse Pulse Resp BP Pulse Ox O2 Del Method 12/05/24 11:54 36.7 C 61 20 96/56 L 92 Room Air 12/05/24 08:10 36.5 C 61 20 113/54 L 96 Room Air 12/05/24 02:43 36.6 C 61 20 100/62 98 Room Air Laboratory Results 12/05/24 12/05/24 12/05/24 11:37 07:37 07:30 WBC 9.57 RBC 3.91 L Hgb 11.6 L Hct 33.7 L MCV 86.2 MCH 29.7 MCHC 34.4 RDW Std Deviation 39.3 RDW Coeff of Morena 12.4 Plt Count 267 MPV 11.2 Immature Gran % (Auto) 1.9 Neut % (Auto) 70.1 Lymph % (Auto) 13.1 [place] % (Auto) 11.5 Eos % (Auto) 3.0 Baso % (Auto) 0.4 Neut # (Auto) 6.71 H Lymph # (Auto) 1.25 [place] # (Auto) 1.10 H Eos # (Auto) 0.29 Baso # (Auto) 0.04 Immature Gran # (Auto) 0.18 Sodium 137 Potassium 3.8 Chloride 101 Carbon Dioxide 29 Anion Gap 7 BUN 16 Creatinine 0.66 Est Cr Clr Drug Dosing 132.4 eGFR 102.16 BUN/Creatinine Ratio 24.2 H Glucose 98 POC Glucose 164 H 88 Calcium 8.7 Magnesium 2.1 Total Bilirubin 0.5 AST 16 ALT 4 L Alkaline Phosphatase 70 C-Reactive Protein 7.23 H Total Protein 6.3 Albumin 2.9 L Globulin 3.4 Albumin/Globulin Ratio 0.9 Procalcitonin 0.04 12/04/24 12/04/24 20:05 16:24 WBC RBC Hgb Hct MCV MCH MCHC RDW Std Deviation RDW Coeff of Morena Plt Count MPV Immature Gran % (Auto) Neut % (Auto) Lymph % (Auto) [place] % (Auto) Eos % (Auto) Baso % (Auto) Neut # (Auto) Lymph # (Auto) [place] # (Auto) Eos # (Auto) Baso # (Auto) Immature Gran # (Auto) Sodium Potassium Chloride Carbon Dioxide Anion Gap BUN Creatinine Est Cr Clr Drug Dosing eGFR BUN/Creatinine Ratio Glucose POC Glucose 113 H 171 H Calcium Magnesium Total Bilirubin AST ALT Alkaline Phosphatase C-Reactive Protein Total Protein Albumin Globulin Albumin/Globulin Ratio Procalcitonin PG Care Time/CCT Total # of Minutes Spent Total Time Spent with Patient: Total time spent is greater than 50% in coordination of care (as documented) at patient's floor/unit and/or counseling patient: Coding Level of Care Code 61707 SUB INP/OBS CARE 2/35MIN Diagnoses Wound, open, foot with complication S91.309A DM (diabetes mellitus), type 2, uncontrolled w/neurologic complication E11.49; E11.65 Factor V Leiden mutation D68.51 Hypertension I10 Mixed restrictive and obstructive lung disease J44.9; J98.4 Morbid obesity E66.01 Hyperglycemia R73.9
[2024-12-06 09:39] LABS: Hematocrit (blood only) 36.3 % (42.0-52.0); Hemoglobin 12.0 g/dl (14.0-18.0); Immature Granulocytes # (auto) 0.07 K/uL (0.01-0.20); Immature Granulocytes % (auto) 0.8 %; Mean Corpuscular Hemoglobin 28.8 pg (25.0-34.0); Mean Corpuscular Volume 87.1 fL (80.0-100.0); Platelet Count 314 K/uL (130-400); RDW Standard Deviation 40.0 fL (36.4-46.3); Red Blood Count 4.17 M/uL (4.70-6.10); White Blood Count 8.94 K/ul (4.8-10.8)
[2024-12-06 09:56] LABS: Anion Gap 8.0 (3-11); Blood Urea Nitrogen 18.0 mg/dl (6-23); Calcium 8.8 mg/dl (8.6-10.3); Carbon Dioxide 30.0 mmol/L (21-32); Chloride 97.0 mmol/L (98-107); Creatinine Clr Calc Pharmacy 113.6 ml/min; Glucose 257.0 mg/dl (70-99(Fasting)); Potassium 4.2 mmol/L (3.5-5.1); Sodium 135.0 mmol/L (136-145)
--- NOTE | 2024-12-06 16:43 | Hospitalist Progress Note ---
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 # left lower extremity cellulitis/left foot ulceration #Status postdebridement See wound care pictures, continue antibiotic coverage for MSSA - No growth x 5 days from the culture from 26. - Images forwarded to podiatry for consideration for additional debridement procedure #Hypotension: -Check orthostatic VS, ongoing volume expansion as tolerated. MAP > 60. - stable, asymptomatic, no tachycardia, taking oral intake - Stable, appropriate for discharge no low blood pressures x 36 hours Okay to downgrade to [facility] with telemetry- #Anemia - no evidence of blood loss, likely dilutional, hgb after initial decrease - continue anticoagulants per prior orders. - daily monitor anemia stable at 12.0 ericka - No evidence of bleeding #Severe PAD -New, Confirmed and severe by CT Angio with Multifocal severe stenosis throughout the infrapopliteal vessels. contributing to blistering as above -consult to vascular surgery, secondary prevention as noted below -Continue Xarelto and ASA #Massively uncontrolled type 2 diabetes #Hyperosmolar hyperglycemic state #With Complications (longstanding neuropathy,+/- retinopathy) - continue Lantus plus SS, will titrate to meal time insulin based on oral intake, expect quite a bit of variability in the near term with celulitis, vascular d/z and severity of recent hyperglycemia - generally within goal #Hyponatremia - WNL after compensation for elevated blood sugars, normalizing this morning - Stable #HLD - increase to high dose given PAD #Factor V Leiden - chronically anticoagulated with Xarelto, continue #Morbid obesity with BMI of 33.5/CHRISTIANO/mixed restrictive and obstructive lung disease Will ask for CPAP at bedtime #hypertensioncontinue lisinopril and metoprolol. Follow pressures, follow BMP periodically #seizure disordercontinue Keppra #B12 deficiencyreplace #BPH with LUTScontinue Flomax #FEN - HH and DM2 diet, monitor intake #CODE STATUS - Full Code per his wishes Admission and Anticipated Discharge Date Admission Date: December 01, 2024 Subjective Doing okay this morning. We discussed at length the increase in swelling and the appearance of his foot after return of vascularization from previous procedure. Otherwise he has no new or different symptoms. No problems with oral intake or eliminations. No fever chills or other generalized signs of illness. He has had no increase in pain in the extremity or specifically the foot. Physical Exam Physical Exam: General: A&Ox3. NAD. Cooperative. HEENT: Atraumatic, normocephalic. Vision and hearing grossly intact. Pupils equal and reactive to light, sclera clear and anicteric Pulm: CTAB A&P. -wheezes, -rales, -rhonchi. No increased work of breathing. No respiratory distress. Cardiac: RRR. -mrg. Radial pulses intact and symmetrical. Abdominal: Nontender, nondistended, soft. BS present. Ext: No Edema, Moves all extremities equally, bandaged dressing over the foot unchanged, clear dry intact see documentation pictures from nursing in the chart/wound care, NEURO: A&O as above, no focal deficits Skin: warm, moist. Results & Data Results & Data Vital Signs (Past 12 Hours) Vital Signs Temp Pulse Pulse Resp BP BP Pulse Ox 12/06/24 15:48 36.6 C 63 18 121/71 98 12/06/24 14:00 65 12/06/24 11:49 36.7 C 63 18 113/66 100 12/06/24 09:56 60 12/06/24 07:59 36.6 C 60 18 107/67 98 O2 Del Method 12/06/24 15:48 Room Air 12/06/24 14:00 12/06/24 11:49 Room Air 12/06/24 09:56 12/06/24 07:59 Room Air Laboratory Results 12/01/24 05:24 Aerobic Blood Culture - Final Blood No growth in Aerobic bottle after 5 days. Anaerobic Blood Culture - Final No growth in Anaerobic bottle after 5 days. 12/01/24 05:18 Aerobic Blood Culture - Final Blood No growth in Aerobic bottle after 5 days. Anaerobic Blood Culture - Final No growth in Anaerobic bottle after 5 days. 12/06/24 12/06/24 12/06/24 16:13 11:06 09:23 WBC 8.94 RBC 4.17 L Hgb 12.0 L Hct 36.3 L MCV 87.1 MCH 28.8 MCHC 33.1 RDW Std Deviation 40.0 RDW Coeff of Morena 12.6 Plt Count 314 MPV 11.3 Immature Gran % (Auto) 0.8 Neut % (Auto) 66.8 Lymph % (Auto) 15.9 [place] % (Auto) 12.4 Eos % (Auto) 3.7 Baso % (Auto) 0.4 Neut # (Auto) 5.97 Lymph # (Auto) 1.42 [place] # (Auto) 1.11 H Eos # (Auto) 0.33 Baso # (Auto) 0.04 Immature Gran # (Auto) 0.07 Sodium 135 L Potassium 4.2 Chloride 97 L Carbon Dioxide 30 Anion Gap 8 BUN 18 Creatinine 0.78 Est Cr Clr Drug Dosing 113.6 eGFR 97.14 BUN/Creatinine Ratio 23.1 H Glucose 257 H POC Glucose 209 H 278 H Calcium 8.8 C-Reactive Protein 5.29 H 12/06/24 12/05/24 07:34 20:39 WBC RBC Hgb Hct MCV MCH MCHC RDW Std Deviation RDW Coeff of Morena Plt Count MPV Immature Gran % (Auto) Neut % (Auto) Lymph % (Auto) [place] % (Auto) Eos % (Auto) Baso % (Auto) Neut # (Auto) Lymph # (Auto) [place] # (Auto) Eos # (Auto) Baso # (Auto) Immature Gran # (Auto) Sodium Potassium Chloride Carbon Dioxide Anion Gap BUN Creatinine Est Cr Clr Drug Dosing eGFR BUN/Creatinine Ratio Glucose POC Glucose 133 H 127 H Calcium C-Reactive Protein PG Care Time/CCT Total # of Minutes Spent Total Time Spent with Patient: Total time spent is greater than 50% in coordination of care (as documented) at patient's floor/unit and/or counseling patient: Coding Level of Care Code 87431 SUB INP/OBS CARE 2/35MIN Diagnoses Wound, open, foot with complication S91.309A DM (diabetes mellitus), type 2, uncontrolled w/neurologic complication E11.49; E11.65 Factor V Leiden mutation D68.51 Hypertension I10 Mixed restrictive and obstructive lung disease J44.9; J98.4 Morbid obesity E66.01 Hyperglycemia R73.9
--- NOTE | 2024-12-06 21:52 | Podiatry Progress Note ---
Date of Service December 06, 2024 Assessment & Plan (1) Tibial artery occlusion, left: (2) DM (diabetes mellitus), type 2, uncontrolled w/neurologic complication: (3) Other specified peripheral vascular diseases: (4) Chronic ulcer of left foot limited to breakdown of skin: (5) Cellulitis of left foot: Plan Patient examined and evaluated. - His foot was reassessed in these areas of pottential necrosis are concerning. They may develop into more extensive dry gangrene, which could necessitate a transmetatarsal rotation given the level of injury. - This may improve with his recent revascularization and without any evidence of acute infection, could be treated conservatively with time. - He would benefit from continued local wound care, with orders for Aquacel Ag and sterile dressings to be placed daily. - If he remains stable from a vascular standpoint, we are happy to follow up with him outpatient to monitor for any changes that would require dictation at that point. - Patient is amenable to this as he would prefer to avoid any surgery if possible. - We did discuss that his best/quickest route to full recovery would be a transmetatarsal amputation but that isolated digital amputations could be considered; further that even though his blood flow is improved with revascularization, his capillaries and smaller arteries are likely still significantly diseased. It will be difficult to heal his foot currently and even with more predictable surgical incisions/resections. - For now, will continue to follow while he remains in the hospital but he is cleared to be discharged home from our standpoint once he is stable per other specialties. Admission and Anticipated Discharge Date Admission Date: December 01, 2024 Subjective Patient seen at bedside at lunch. Eating well; decreased pain to lower extremity overall. Concerned with future of his foot but would like to avoid surgery/amputations still if possible. No new symptoms of infection. Has been having dressings changed by nursing. Review of Systems Constitutional: no fever, no chills and no fatigue Eyes: no problem reported Ear, Nose, Mouth, Throat: no problem reported Respiratory: no problem reported Cardiovascular: + edema; no problem reported Gastrointestinal: no nausea, no vomiting and no problem reported Musculoskeletal: no problem reported Integumentary: + skin ulcer, + wounds and + erythema Neurologic: + loss of sensation, + numbness and + pa resthesia; no generalized weakness Psychiatric: no problem reported Physical Exam Physical Exam: Left lower extremity focused exam: DP/PT pulses non-palpable. CFT brisk to the digits. Degloving noted to left forefoot, with loosened epidermis to the lateral 1st toe extending to the 3rd and fourth toes. There is increasing areas of necrosis to the first, third, and fifth toes with evidence for demarcating dry necrosis. There is still no significant evidence of deeper infection including no deep ulceration and no probing to the bone. Prior superficial maceration is improving. Constitutional: WD/WN, vitals as above + ill appearing, + morbidly obese, + obese and + lethargic; no acute distress Eyes: PERRL, conjunctivae normal, anicteric sclerae ENMT: external ear and nose normal, oropharynx normal Mouth: + poor dentition Neck: trachea midline, no thyromegaly normal visual inspection Respiratory: normal respiratory effort; no respiratory distress Cardiovascular: Rate/Rhythm: regular rate and regular rhythm Vessels: + posterior tibial pulses abnormal and + dorsalis pedis pulses abnormal Chest (Breasts): Chest: normal inspection of chest Gastrointestinal (Abdomen): Inspection/Auscultation: abdomen normal to inspection Percussion/Palpation: + abdomen tender and abdomen soft Musculoskeletal: no cyanosis or clubbing, extremities motor strength 5/5 Head/Neck/Chest: normocephalic and head atraumatic Extremities: extremities normal to inspection Skin: + ulcer, + wound, + skin atrophy, + esch ar and + nails dystrophic Neurologic: awake; no focal motor deficits Psychiatric: A+Ox3, euthymic affect Results & Data Results & Data Vital Signs (Past 12 Hours) Vital Signs Temp Pulse Pulse Resp BP BP Pulse Ox 12/06/24 19:51 36.7 C 60 19 122/66 97 12/06/24 15:48 36.6 C 63 18 121/71 98 12/06/24 14:00 65 12/06/24 11:49 36.7 C 63 18 113/66 100 12/06/24 09:56 60 O2 Del Method 12/06/24 19:51 Room Air 12/06/24 15:48 Room Air 12/06/24 14:00 12/06/24 11:49 Room Air 12/06/24 09:56
[2024-12-07 08:27] LABS: Hematocrit (blood only) 32.5 % (42.0-52.0); Hemoglobin 11.0 g/dl (14.0-18.0); Immature Granulocytes # (auto) 0.05 K/uL (0.01-0.20); Immature Granulocytes % (auto) 0.7 %; Mean Corpuscular Hemoglobin 29.0 pg (25.0-34.0); Mean Corpuscular Volume 85.8 fL (80.0-100.0); Platelet Count 273 K/uL (130-400); RDW Standard Deviation 39.0 fL (36.4-46.3); Red Blood Count 3.79 M/uL (4.70-6.10); White Blood Count 7.40 K/ul (4.8-10.8)
[2024-12-07 08:46] LABS: Anion Gap 6.0 (3-11); Blood Urea Nitrogen 24.0 mg/dl (6-23); Calcium 8.4 mg/dl (8.6-10.3); Carbon Dioxide 30.0 mmol/L (21-32); Chloride 99.0 mmol/L (98-107); Creatinine Clr Calc Pharmacy 125.4 ml/min; Glucose 179.0 mg/dl (70-99(Fasting)); Magnesium 2.1 mg/dl (1.7-2.4); Potassium 4.1 mmol/L (3.5-5.1); Sodium 135.0 mmol/L (136-145)
--- NOTE | 2024-12-07 14:21 | Hospitalist Progress Note ---
Date of Service December 07, 2024 Assessment & Plan (1) Wound, open, foot with complication: (2) DM (diabetes mellitus), type 2, uncontrolled w/neurologic complication: (3) Factor V Leiden mutation: (4) Hypertension: (5) Mixed restrictive and obstructive lung disease: (6) Morbid obesity: (7) Hyperglycemia: Plan # Postop day 4 left lower extremity angio with SLABBER stenting follow-up PT/AT arteries - See vascular surgery notes continue Eliquis - Continue follow-up podiatry, continue conservative management, # left lower extremity cellulitis/left foot ulceration #Status postdebridement See wound care pictures, continue antibiotic coverage for MSSA - No growth x 5 days from the culture from 26. - Images forwarded to podiatry for consideration for additional debridement procedure high risk for progression to dry gangrene, CRP minimally elevated, procalcitonin negative. Repeat serum labs #Hypotension: - 500cc NS bolus -Check orthostatic VS, ongoing volume expansion as tolerated. MAP > 60. - stable, asymptomatic, no tachycardia, taking oral intake - Stable, appropriate for discharge no low blood pressures x 36 hours - Okay to downgrade to [employer] with telemetry #Anemia - no evidence of blood loss, likely dilutional, hgb after initial decrease - continue anticoagulants per prior orders. - daily monitor anemia stable at 12.0 ericka - No evidence of bleeding #Severe PAD -New, Confirmed and severe by CT Angio with Multifocal severe stenosis throughout the infrapopliteal vessels. contributing to blistering as above -consult to vascular surgery, secondary prevention as noted below -Continue Xarelto and ASA #Massively uncontrolled type 2 diabetes #Hyperosmolar hyperglycemic state #With Complications (longstanding neuropathy,+/- retinopathy) - continue Lantus plus SS, will titrate to meal time insulin based on oral intake, expect quite a bit of variability in the near term with celulitis, vascular d/z and severity of recent hyperglycemia - generally within goal #Hyponatremia - WNL after compensation for elevated blood sugars, normalizing this morning - Stable #HLD - increase to high dose given PAD #Factor V Leiden - chronically anticoagulated with Xarelto, continue #Morbid obesity with BMI of 33.5/CHRISTIANO/mixed restrictive and obstructive lung disease Will ask for CPAP at bedtime #hypertensioncontinue lisinopril and metoprolol. Follow pressures, follow BMP periodically #seizure disordercontinue Keppra #B12 deficiencyreplace #BPH with LUTScontinue Flomax #FEN - HH and DM2 diet, monitor intake #CODE STATUS - Full Code per his wishes Admission and Anticipated Discharge Date Admission Date: December 01, 2024 Subjective No significant changes overnight., Modest increase in pain control with oxycodone acetaminophen active. No fever chills or generalized signs of illness. Oral intake continues to be consistent. No problems with bowel or bladder function. Physical Exam Physical Exam: General: A&Ox3. NAD. Cooperative. HEENT: Atraumatic, normocephalic. Vision and hearing grossly intact. Pupils equal and reactive to light, sclera clear and anicteric Pulm: CTAB A&P. -wheezes, -rales, -rhonchi. No increased work of breathing. No respiratory distress. Cardiac: RRR. -mrg. Radial pulses intact and symmetrical. Abdominal: Nontender, nondistended, soft. BS present. Ext: No Edema, Moves all extremities equally, bandaged dressing over the foot unchanged, clear dry intact see documentation pictures from nursing in the chart/wound care, NEURO: A&O as above, no focal deficits Skin: warm, moist. Results & Data Results & Data Vital Signs (Past 12 Hours) Vital Signs Temp Pulse Pulse Resp BP BP Pulse Ox 12/07/24 11:32 36.0 C L 60 18 86/53 L 107/66 99 12/07/24 07:47 36.8 C 61 20 110/62 96 12/07/24 07:16 60 12/07/24 04:11 37 C 58 L 16 96/58 L 98 O2 Del Method 12/07/24 11:32 Room Air 12/07/24 07:47 Room Air 12/07/24 07:16 12/07/24 04:11 Room Air Laboratory Results 12/07/24 12/07/24 12/07/24 12:23 08:31 07:59 WBC 7.40 RBC 3.79 L Hgb 11.0 L Hct 32.5 L MCV 85.8 MCH 29.0 MCHC 33.8 RDW Std Deviation 39.0 RDW Coeff of Morena 12.5 Plt Count 273 MPV 11.2 Immature Gran % (Auto) 0.7 Neut % (Auto) 59.6 Lymph % (Auto) 20.1 [place] % (Auto) 14.5 Eos % (Auto) 4.3 Baso % (Auto) 0.8 Neut # (Auto) 4.41 Lymph # (Auto) 1.49 [place] # (Auto) 1.07 H Eos # (Auto) 0.32 Baso # (Auto) 0.06 Immature Gran # (Auto) 0.05 Sodium 135 L Potassium 4.1 Chloride 99 Carbon Dioxide 30 Anion Gap 6 BUN 24 H Creatinine 0.70 Est Cr Clr Drug Dosing 125.4 eGFR 100.37 BUN/Creatinine Ratio 34.3 H Glucose 179 H POC Glucose 175 H 194 H Calcium 8.4 L Magnesium 2.1 C-Reactive Protein 3.25 H Procalcitonin 0.05 12/06/24 12/06/24 20:12 16:13 WBC RBC Hgb Hct MCV MCH MCHC RDW Std Deviation RDW Coeff of Morena Plt Count MPV Immature Gran % (Auto) Neut % (Auto) Lymph % (Auto) [place] % (Auto) Eos % (Auto) Baso % (Auto) Neut # (Auto) Lymph # (Auto) [place] # (Auto) Eos # (Auto) Baso # (Auto) Immature Gran # (Auto) Sodium Potassium Chloride Carbon Dioxide Anion Gap BUN Creatinine Est Cr Clr Drug Dosing eGFR BUN/Creatinine Ratio Glucose POC Glucose 190 H 209 H Calcium Magnesium C-Reactive Protein Procalcitonin PG Care Time/CCT Total # of Minutes Spent Total Time Spent with Patient: Total time spent is greater than 50% in coordination of care (as documented) at patient's floor/unit and/or counseling patient: Coding Level of Care Code 87983 SUB INP/OBS CARE 2/35MIN Diagnoses Wound, open, foot with complication S91.309A DM (diabetes mellitus), type 2, uncontrolled w/neurologic complication E11.49; E11.65 Factor V Leiden mutation D68.51 Hypertension I10 Mixed restrictive and obstructive lung disease J44.9; J98.4 Morbid obesity E66.01 Hyperglycemia R73.9
[2024-12-07] MEDS: SODIUM CHLORIDE 0.9% 500 ML IV ONE (15:05)
[2024-12-08 08:12] LABS: Hematocrit (blood only) 35.3 % (42.0-52.0); Hemoglobin 11.4 g/dl (14.0-18.0); Immature Granulocytes # (auto) 0.05 K/uL (0.01-0.20); Immature Granulocytes % (auto) 0.7 %; Mean Corpuscular Hemoglobin 28.4 pg (25.0-34.0); Mean Corpuscular Volume 87.8 fL (80.0-100.0); Platelet Count 317 K/uL (130-400); RDW Standard Deviation 40.1 fL (36.4-46.3); Red Blood Count 4.02 M/uL (4.70-6.10); White Blood Count 7.26 K/ul (4.8-10.8)
[2024-12-08 08:25] LABS: Alanine Aminotransferase 3.0 U/L (7-52); Albumin Globulin Ratio 1.0 (0.9-2); Albumin Level 3.2 gm/dl (3.4-5.0); Alkaline Phosphatase 76.0 U/L (34-104); Anion Gap 7.0 (3-11); Bilirubin,Total 0.4 mg/dl (0.2-1.0); Blood Urea Nitrogen 25.0 mg/dl (6-23); Calcium 8.8 mg/dl (8.6-10.3); Carbon Dioxide 31.0 mmol/L (21-32); Chloride 97.0 mmol/L (98-107); Creatinine Clr Calc Pharmacy 133.9 ml/min; Globulin 3.2 gm/dl (2.5-4.0); Glucose 185.0 mg/dl (70-99(Fasting)); Magnesium 2.2 mg/dl (1.7-2.4); Potassium 4.1 mmol/L (3.5-5.1); Sodium 135.0 mmol/L (136-145); Total Protein 6.4 gm/dl (6.0-8.3)
--- NOTE | 2024-12-08 13:05 | Hospitalist Progress Note ---
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 - Images forwarded to podiatry for consideration for additional debridement procedure high risk for progression to dry gangrene, CRP minimally elevated, procalcitonin negative. - CRP trending downward, no need to continue daily checks unless clinical signs of infection appear #Hypotension: - 500cc NS bolus -Check orthostatic VS, ongoing volume expansion as tolerated. MAP > 60. - stable, asymptomatic, no tachycardia, taking oral intake - Stable, appropriate for discharge no low blood pressures x 36 hours - Okay to downgrade to [employer] with telemetry - Still modestly hypotensive but asymptomatic. Will check orthostatic vital signs today, fluid bolus as needed #Anemia - no evidence of blood loss, likely dilutional, hgb after initial decrease - continue anticoagulants per prior orders. - daily monitor anemia stable at 12.0 ericka - No evidence of bleeding, stable hemoglobin #Severe PAD -New, Confirmed and severe by CT Angio with Multifocal severe stenosis throughout the infrapopliteal vessels. contributing to blistering as above -consult to vascular surgery, secondary prevention as noted below -Continue Xarelto and ASA #Massively uncontrolled type 2 diabetes #Hyperosmolar hyperglycemic state #With Complications (longstanding neuropathy,+/- retinopathy) - continue Lantus plus SS, will titrate to meal time insulin based on oral intake, expect quite a bit of variability in the near term with celulitis, vascular d/z and severity of recent hyperglycemia - generally within goal #Hyponatremia - WNL after compensation for elevated blood sugars, normalizing this morning - Stable #HLD - increase to high dose given PAD #Factor V Leiden - chronically anticoagulated with Xarelto, continue #Morbid obesity with BMI of 33.5/CHRISTIANO/mixed restrictive and obstructive lung disease Will ask for CPAP at bedtime #hypertensioncontinue lisinopril and metoprolol. Follow pressures, follow BMP periodically #seizure disordercontinue Keppra #B12 deficiencyreplace #BPH with LUTScontinue Flomax #FEN - HH and DM2 diet, monitor intake #CODE STATUS - Full Code per his wishes Admission and Anticipated Discharge Date Admission Date: December 01, 2024 Subjective Doing well this morning. No pain or discomfort. Foot remains cold but no specific therapy. No new events or concerns per patient. No events per nursing staff. He ate breakfast uneventfully. We discussed his lower blood pressures he is asymptomatic denies any orthostasis or feelings of shortness of breath when he stands up or tries to move around. Physical Exam Physical Exam: General: A&Ox3. NAD. Cooperative. HEENT: Atraumatic, normocephalic. Vision and hearing grossly intact. Pupils equal and reactive to light, sclera clear and anicteric Pulm: CTAB A&P. -wheezes, -rales, -rhonchi. No increased work of breathing. No respiratory distress. Cardiac: RRR. -mrg. Radial pulses intact and symmetrical. Abdominal: Nontender, nondistended, soft. BS present. Ext: No Edema, Moves all extremities equally, bandaged dressing over the foot unchanged, clear dry intact see documentation pictures from nursing in the chart/wound care, NEURO: A&O as above, no focal deficits Skin: warm, moist. Results & Data Results & Data Vital Signs (Past 12 Hours) Vital Signs Temp Pulse Pulse Resp BP Pulse Ox O2 Del Method 12/08/24 07:35 36.8 C 61 18 131/67 94 Room Air 12/08/24 07:12 60 12/08/24 04:12 61 12/08/24 04:01 36.6 C 37 L 20 99/56 L 97 Room Air Laboratory Results 12/08/24 12/08/24 12/08/24 12:13 08:20 07:30 WBC 7.26 RBC 4.02 L Hgb 11.4 L Hct 35.3 L MCV 87.8 MCH 28.4 MCHC 32.3 RDW Std Deviation 40.1 RDW Coeff of Morena 12.5 Plt Count 317 MPV 11.0 Immature Gran % (Auto) 0.7 Neut % (Auto) 63.0 Lymph % (Auto) 18.5 [place] % (Auto) 12.1 Eos % (Auto) 5.0 Baso % (Auto) 0.7 Neut # (Auto) 4.58 Lymph # (Auto) 1.34 [place] # (Auto) 0.88 H Eos # (Auto) 0.36 Baso # (Auto) 0.05 Immature Gran # (Auto) 0.05 Sodium 135 L Potassium 4.1 Chloride 97 L Carbon Dioxide 31 Anion Gap 7 BUN 25 H Creatinine 0.66 Est Cr Clr Drug Dosing 133.9 eGFR 102.16 BUN/Creatinine Ratio 37.9 H Glucose 185 H POC Glucose 238 H 175 H Calcium 8.8 Magnesium 2.2 Total Bilirubin 0.4 AST 16 ALT 3 L Alkaline Phosphatase 76 C-Reactive Protein 2.74 H Total Protein 6.4 Albumin 3.2 L Globulin 3.2 Albumin/Globulin Ratio 1.0 Procalcitonin 0.03 12/07/24 12/07/24 20:01 17:13 WBC RBC Hgb Hct MCV MCH MCHC RDW Std Deviation RDW Coeff of Morena Plt Count MPV Immature Gran % (Auto) Neut % (Auto) Lymph % (Auto) [place] % (Auto) Eos % (Auto) Baso % (Auto) Neut # (Auto) Lymph # (Auto) [place] # (Auto) Eos # (Auto) Baso # (Auto) Immature Gran # (Auto) Sodium Potassium Chloride Carbon Dioxide Anion Gap BUN Creatinine Est Cr Clr Drug Dosing eGFR BUN/Creatinine Ratio Glucose POC Glucose 115 H 140 H Calcium Magnesium Total Bilirubin AST ALT Alkaline Phosphatase C-Reactive Protein Total Protein Albumin Globulin Albumin/Globulin Ratio Procalcitonin Patient PG Care Time/CCT Total # of Minutes Spent Total Time Spent with Patient: Total time spent is greater than 50% in coordination of care (as documented) at patient's floor/unit and/or counseling patient: Coding Level of Care Code 39483 SUB INP/OBS CARE 2/35MIN Diagnoses Wound, open, foot with complication S91.309A DM (diabetes mellitus), type 2, uncontrolled w/neurologic complication E11.49; E11.65 Factor V Leiden mutation D68.51 Hypertension I10 Mixed restrictive and obstructive lung disease J44.9; J98.4 Morbid obesity E66.01 Hyperglycemia R73.9
[2024-12-08] MEDS: SODIUM CHLORIDE 0.9% 500 ML IV ONE (16:30)
[2024-12-08] MEDS: SODIUM CHLORIDE 0.9% 250 ML IV ONE (19:49)
[2024-12-09 10:44] LABS: Hematocrit (blood only) 32.9 % (42.0-52.0); Hemoglobin 10.8 g/dl (14.0-18.0); Immature Granulocytes # (auto) 0.06 K/uL (0.01-0.20); Immature Granulocytes % (auto) 0.6 %; Mean Corpuscular Hemoglobin 28.8 pg (25.0-34.0); Mean Corpuscular Volume 87.7 fL (80.0-100.0); Platelet Count 350 K/uL (130-400); RDW Standard Deviation 40.0 fL (36.4-46.3); Red Blood Count 3.75 M/uL (4.70-6.10); White Blood Count 9.89 K/ul (4.8-10.8)
[2024-12-09 11:42] LABS: Anion Gap 8.0 (3-11); Calcium 8.9 mg/dl (8.6-10.3); Carbon Dioxide 29.0 mmol/L (21-32); Chloride 96.0 mmol/L (98-107); Magnesium 2.2 mg/dl (1.7-2.4); Potassium 4.2 mmol/L (3.5-5.1); Sodium 133.0 mmol/L (136-145)
--- NOTE | 2024-12-09 11:49 | Discharge Summary ---
Discharge Summary Date of Service December 09, 2024 Principal Dx & Hospital Course #1 = Principal Diagnosis (1) Wound, open, foot with complication: Chronic diabetic ulcer/wound on left foot, 1st and 2nd DIP, PIP with bullae (ruptured) and without discharge (sanguineous, serous, suppurative) on 12/09/2024 (2) DM (diabetes mellitus), type 2, uncontrolled w/neurologic complication: Poorly controlled with HbA1c 13.7% (12/01/2024, 5:18am). cf., admission glucose 600 mg/dL, anion gap 9, CO2 28 (12/01/2024, 5:14am). cf., discharge glucose 371 mg/dL, anion gap 8, CO2 29 (12/09/2024, 10:14am). Most likely HHS, NOT DKA given normal anion gap and normal CO2 levels noted above. Etiology of HHS is most likely a combination of dietary indiscretion and medication non-compliance, but I cannot exclude acute UTI as an alternative et iology for patient's normal anion gap HHS. Hence, I have ordered U/A (12/09/2024, 11:59am) to rule out acute UTI as an alternative etiology for patient's normal anion gap HHS. In the interim, I have opted to to continue hospital-started lantus 10 units SQ bid and hospital-started aspart insulin sliding scale qac + qhs with POC glucose qac + qhs; instead, I have opted to resume patient's home-scheduled lantus insulin 50 units SQ qam and metformin 1000mg PO bid to improve short-term glycemic control after patient is discharged back to his home on 12/09/2024. (3) Factor V Leiden mutation: Continue long-term active anticoagulation utilizing home-scheduled xarelto 20mg PO daily while patient remains in [facility] and on hospital discharge back to his home on 12/09/2024. (4) Hypertension: Modestly controlled with discharge BP 142/74 (12/09/2024, 12:05pm) on home- scheduled lasix 80mg PO qam, home-scheduled lisinopril 10mg PO qam, and metoprolol tartrate 50mg PO bid while in [facility]. Patient will continue all 3 home-scheduled medications on hospital discharge home on 12/09/2024. (5) Mixed restrictive and obstructive lung disease: Observe as patient reports no cough, wheeze, SOB/GREEN on hospital discharge date 12/09/2024. (6) Morbid obesity: Patient is not morbidly obese; patient is obese with BMI 35.2 (height 177.8 cm; weight 111.2 kg). Patient needs to lose at least 32.6 kg in order to attain a BMI 24.9, at which level, the patient would no longer be deemed obese or overweight. Patient states that he is too old at 69 years of age to modify his diet, exercise, and/or lifestyle in order to lose any weight over any time period. (7) Hyperglycemia: See bullet #2 above. Plan # Postop day 5 left lower extremity angio with TRAINING [employer] DOCUMENTATION SPECIALIST stenting follow-up PT/AT arteries - See vascular surgery notes continue Eliquis - Continue follow-up podiatry, continue conservative management, # left lower extremity cellulitis/left foot ulceration #Status postdebridement See wound care pictures, continue antibiotic coverage for MSSA - No growth x 5 days from the culture from 26. - Images forwarded to podiatry for consideration for additional debridement procedure high risk for progression to dry gangrene, CRP minimally elevated, procalcitonin negative. - CRP trending downward, no need to continue daily checks unless clinical signs of infection appear #Hypotension: - 500cc NS bolus -Check orthostatic VS, ongoing volume expansion as tolerated. MAP > 60. - stable, asymptomatic, no tachycardia, taking oral intake - Stable, appropriate for discharge no low blood pressures x 36 hours - Okay to downgrade to [facility] with telemetry - Still modestly hypotensive but asymptomatic. Will check orthostatic vital s igns today, fluid bolus as needed #Anemia - no evidence of blood loss, likely dilutional, hgb after initial decrease - continue anticoagulants per prior orders. - daily monitor anemia stable at 12.0 ericka - No evidence of bleeding, stable hemoglobin #Severe PAD -New, Confirmed and severe by CT Angio with Multifocal severe stenosis throughout the infrapopliteal vessels. contributing to blistering as above -consult to vascular surgery, secondary prevention as noted below -Continue Xarelto and ASA #Massively uncontrolled type 2 diabetes #Hyperosmolar hyperglycemic state #With Complications (longstanding neuropathy,+/- retinopathy) - continue Lantus plus SS, will titrate to meal time insulin based on oral intake, expect quite a bit of variability in the near term with celulitis, vascular d/z and severity of recent hyperglycemia - generally within goal #Hyponatremia - WNL after compensation for elevated blood sugars, normalizing this morning - Stable #HLD - increase to high dose given PAD #Factor V Leiden - chronically anticoagulated with Xarelto, continue #Morbid obesity with BMI of 33.5/CHRISTIANO/mixed restrictive and obstructive lung disease Will ask for CPAP at bedtime #hypertensioncontinue lisinopril and metoprolol. Follow pressures, follow BMP periodically #seizure disordercontinue Keppra #B12 deficiencyreplace #BPH with LUTScontinue Flomax #FEN - HH and DM2 diet, monitor intake #CODE STATUS - Full Code per his wishes Admission HPI Per Admitting Provider patient is a pleasant but very fatigued 69-year-old male. HPI somewhat limited due to his fatiguehe acknowledges that he is just very tired from having been in the ER through the nightand I am able to have him converse enough to know that he is not altered, he is oriented, he just is very fatigued. His left foot started hurting in the last day or 2 that he noticed, but he does note that he has fairly severe neuropathy and has very little feeling in his feet, so does acknowledge that this could have been going on longer. No fevers chills or sweats. No other symptoms no chest pain no shortness of breath. He came to the ER due to the foot pain and blisteringhere he was found to have blistering of his 1st and 2nd toes, concern on cellulitisCT of the foot also looks concerning for infection. His blood sugars were also 600, we were asked to admit for ongoing management. Discharge Exam Constitutional General: Comfortable, cooperative and coherent. Wide awake and alert. Not confused, lethargic, or obtunded. Patient speaks in complete, fluent, and articulate sentences, without pause, interruption, cough, or wheeze. HEENT: NC/AT. EOMI. PERRL. No nystagmus, gaze paresis, anisocoria, miosis, mydriasis, chemosis, hyphema, scleral injection, conjunctivitis, or pterygium. No otorrhea. No rhinorrhea. Neck: Supple, no stridor, bruit, or goiter. Jugular venous pressure 3 cm above the sternal angle of Rick, which is typically 5 cm above the right atrium. Lymph: No anterior/posterior cervical lymphadenopathy, supraclavicular/infraclavicular lymphadenopathy, axilla/epitrochlear/inguinal lymphadenopathy. Chest: Symmetric rise and fall with respirations. Non-tender to palpation. Heart: RRR, S1 and S2. No S3 or S4 summation gallop. No tripartite friction rub. No murmur. Lungs: Clear to auscultation and percussion. No audible expiratory wheeze, egophony, pectoriloquy, increase in tactile fremitus, or flatness/dullness to percussion at the bases. Abd: Soft, non-tender, non-distended. Bowel sounds auscultated in all 4 quadrants. No rebound, guarding, Malone's sign, or organomegaly. Ext: No clubbing, cyanosis, or edema. 2+ pedal pulses bilaterally. Skin: No decubitus ulcer or enanthem or exanthem. Neuro: No tremors, tics, or myoclonus. DTR+. Urology: No lin catheter. No urethral discharge. Discharge Plan Discharge Items Patient Disposition: Home - Home Health Services Reason For Visit: Chronic left tibial artery occlusion Discharge Diagnosis: Chronic left tibial artery occlusion, s/p percutaneous Transluminal Angioplasty and Stenting of Anterior and Posterior Tibial Artery, Lithotripsy of Anterior and Posterior Tibial Artery, Mechanical Closure and Ultrasound Guidance of Rig ht Common Femoral Artery, 12/03/2024, 8:00am ([facility] Vascular Surgeon Dr. Mamadou Prasad). Condition on Discharge: Fair Activity: Resume your previous activity Lifting: Gradually increase as tolerated Bathing: No limitations Exercise/Sports: Gradually increase as tolerated Driving/Machine Use: No limitations Weightbearing: Full weightbearing Non-emergency contact: Primary Care Provider Call non-emergency contact if: you have any medication questions Follow-up/Referrals: Joe Nevarez MD [Primary Care Provider] - Diet: Carb Consistent or DM2 and Heart Healthy Addtl Attending Provider Instructions: 1. See your PCP Dr. Joe Nevarez within 5-7 days of hospital discharge for routine follow up visit. 2. See your Vascular Surgeon Dr. Mamadou Prasad within 5-7 days of hospital discharge for routine follow up visit after undergoing percutaneous Transluminal Angioplasty and Stenting of Anterior and Posterior Tibial Artery, Lithotripsy of Anterior and Posterior Tibial Artery, Mechanical Closure and Ultrasound Guidance of Right Common Femoral Artery, 12/03/2024, 8:00am ([facility] Vascular Surgeon Dr. Mamadou Prasad) to treat chronic left tibial artery occlusion. 3. See your Room Server Dr. Bora Moreno within 5-7 days of hospital discharge for routine follow up visit of left foot bullae (ruptured, no discharge (sanguineous, serous, suppurative) @ 1st and 2nd PIP and DIP joints. Pending Studies at Discharge: No Stand-Alone Forms: My [facility], Smoking Cessation Medications and DC Order Prescriptions: New clopidogrel 75 mg tablet 75 mg PO DAILY Qty: 30 6RF Continued ergocalciferol (vitamin D2) 1,250 mcg (50,000 unit) capsule 50,000 unit PO Q7D@0900 Qty: 14 0RF Rx Instructions: OTC unable to verify (DME) lancets [OneTouch Delica Lancets] 30 gauge [facility] See Dose Instructions .ROUTE .MEDSUPPLY Qty: 25 0RF Dose Instruction: As directed Rx Instructions: As directed metformin 1,000 mg tablet 1,000 mg PO BID Qty: 180 3RF furosemide 80 mg tablet 80 mg PO QAM Qty: 90 3RF lisinopril 10 mg tablet 10 mg PO QAM Qty: 90 3RF (DME) insulin syringe-needle U-100 0.5 mL 31 gauge x 5/16" syringe See Rx Instructions .Route Qty: 100 0RF Rx Instructions: As directed (DME) blood-glucose meter [Accu-Chek Guide Me Glucose Mtr] [facility] See Rx Instructions .Route Qty: 1 0RF Rx Instructions: As directed (DME) OneTouch Ultra Test Strip See Rx Instructions .Route Qty: 300 3RF Rx Instructions: TEST 3 TIMES DAILY; DX CODE E11.65 (DME) insulin syringe-needle U-100 1 mL 31 gauge x 5/16 syringe See Rx Instructions .ROUTE .MEDSUPPLY Qty: 300 3RF Rx Instructions: USE 3 TIMES DAILY; DX CODE- E11.49, E11.65 atorvastatin 20 mg tablet 20 mg PO UD 90 Days Qty: 90 3RF Rx Instructions: 20mg po qam last filled 06/20/23 90 day supply #90 Xarelto 20 mg tablet 20 mg PO DAILY Qty: 90 3RF Rx Instructions: 20 mg po daily. no fill history available (DME) pen needle, diabetic [Comfort EZ Pen [place]] 31 gauge x 1/4" needle See Rx Instructions .Route Qty: 200 8RF Rx Instructions: Inject 4 times daily insulin glargine [Lantus Solostar U-100 Insulin] 100 unit/mL (3 mL) insulin pen 50 unit subcut QAM MDD 70 Qty: 30 2RF (DME) lancets [Accu-Chek Softclix Lancets] Misc See Rx Instructions .Route Qty: 300 3RF Rx Instructions: test blood sugars three times daily (DME) lancing device with lancets [Accu-Chek Soft Dev Lancets] Kit See Rx Instructions .Route Qty: 1 0RF Rx Instructions: check glucose 3 times tamsulosin 0.4 mg capsule 0.4 mg PO DAILY Qty: 30 2RF tadalafil 20 mg tablet 20 mg PO DAILY PRN (Reason: sexual activity) Qty: 30 2RF Rx Instructions: administer approximately 30min before sexual activity; do not use more than 1 dose per 24hrs insulin aspart U-100 [Novolog FlexPen U-100 Insulin] 100 unit/mL (3 mL) insulin pen 17 unit subcut TID MDD 60 Qty: 30 2RF mupirocin calcium 2 % cream 1 applic topical BID Qty: 15 0RF clotrimazole 1 % cream 1 applic topical BID Qty: 30 0RF acetaminophen 325 mg Tablet 650 mg PO Q6H PRN (Reason: pain) Qty: 30 0RF metoprolol tartrate 50 mg tablet 50 mg PO UD Rx Instructions: 50 mg po bid. no fill history available ketoconazole 2 % cream 1 applic topical UD Rx Instructions: 1 mohsen topical daily. no fill history available Apply to groin folds daily for 3 weeks for intertrigo levetiracetam [Keppra] 500 mg Tablet 500 mg PO BID Qty: 60 0RF cyanocobalamin (vitamin B-12) 500 mcg Tablet 500 mcg PO QAM Qty: 30 0RF Discontinued fluconazole 200 mg tablet 200 mg PO DAILY Qty: 7 0RF Admission Data Admit Date/Time: 12/01/24 08:25 Attending Provider: Sebastien Talavera Admit Provider: Carlos Weaver Primary Care Provider: Joe Nevarez Other Providers: Carlos Weaver; Mamadou Prasad; Bora Moreno Hospital Stay Data Consultations 12/01/24 08:12 ED Decision to Admit Stat 12/01/24 12:02 Consult Vascular Surgery Routine 12/02/24 09:16 Consult Podiatry Routine Procedures Performed Operation Date: 12/03/24 08:00 Actual Procedures p Percutaneous Transluminal Angioplasty and Stenting of Anterior and Posterior Tibial Artery, Lithotripsy of Anterior and Posterior Tibial Artery, Mechanical Closure and Ultrasound Guidance of Right Common Femoral Artery, Moderate Sedation 10:20-13:04(Left) - Mamadou Prasad MD Diagnostic Imagining Performed 12/01/24 06:23 CT foot LT wo con Stat 12/01/24 09:57 CT angio LE LT w inc wo if don Stat 12/01/24 21:46 CT head/brain wo con Stat 12/03/24 07:25 EV angio LE LT Routine US EV guide vascular access Routine Pending Results Patient Have Any Pending Studies at Discharge: No Discharge Instructions Given to Patient (Per Discharging Provider) 1. See your PCP Dr. Joe Nevarez within 5-7 days of hospital discharge for routine follow up visit. 2. See your Vascular Surgeon Dr. Mamadou Prasad within 5-7 days of hospital discharge for routine follow up visit after undergoing percutaneous Transluminal Angioplasty and Stenting of Anterior and Posterior Tibial Artery, Lithotripsy of Anterior and Posterior Tibial Artery, Mechanical Closure and Ultrasound Guidance of Right Common Femoral Artery, 12/03/2024, 8:00am ([facility] Vascular Surgeon Dr. Mamadou Prasad) to treat chronic left tibial artery occlusion. 3. See your Room Server Dr. Bora Moreno within 5-7 days of hospital discharge for routine follow up visit of left foot bullae (ruptured, no discharge (sanguineous, serous, suppurative) @ 1st and 2nd PIP and DIP joints. Total Time Total Time Spent Total Time Spent (In Minutes): 35 minutes. Of this time period, 19 minutes were spent in coordinating patie nt's discharge. Coding Level of Care Code 75692 INP/OBS DISCH >30 MIN Diagnoses Wound, open, foot with complication S91.309A DM (diabetes mellitus), type 2, uncontrolled w/neurologic complication E11.49; E11.65 Factor V Leiden mutation D68.51 Hypertension I10 Mixed restrictive and obstructive lung disease J44.9; J98.4 Morbid obesity E66.01 Hyperglycemia R73.9
[2024-12-09 11:55] LABS: Blood Urea Nitrogen 23.0 mg/dl (6-23); Creatinine Clr Calc Pharmacy 137.9 ml/min; Glucose 371.0 mg/dl (70-99(Fasting))
--- NOTE | 2024-12-09 16:26 | Podiatry Progress Note ---
Date of Service December 09, 2024 Assessment & Plan (1) Tibial artery occlusion, left: (2) DM (diabetes mellitus), type 2, uncontrolled w/neurologic complication: (3) Other specified peripheral vascular diseases: (4) Chronic ulcer of left foot limited to breakdown of skin: (5) Cellulitis of left foot: Plan Patient examined and evaluated. - His foot was reassessed in these areas of potential necrosis are concerning. They does Represent more extensive dry gangrene, which We will necessitate a transmetatarsal rotation given the level of injury. - This may improve with his recent revascularization and without any evidence of acute infection, could be treated conservatively with time. - He would benefit from continued local wound care, with orders for Aquacel Ag and sterile dressings to be placed daily. - If he remains stable from a vascular standpoint, we are happy to follow up with him outpatient to monitor for any changes that would require Amputation at that point. - Patient Is still attempting to avoid surgical amputation, that we did discuss at this point it is more a matter of time than anything. - We did discuss that his best/quickest route to full recovery would be a transmetatarsal amputation but that isolated digital amputations could be considered; further that even though his blood flow is improved with revascularization, his capillaries and smaller arteries are likely still significantly diseased. It will be difficult to heal his foot currently and even with more predictable surgical incisions/resections. - He will plan on being discharged home today and we will follow with later this week in our office. Admission and Anticipated Discharge Date Admission Date: December 01, 2024 Subjective Patient seen at bedside at lunch. States he believes he is being discharged in the next day or so. Denies any new concerns. Believes he is going home after discharge and was not interested in rehab or fpc care at this time. States his blood flow has been good to the feet and denies any acute concerns. Review of Systems Constitutional: no fever, no chills and no fatigue Eyes: no problem reported Ear, Nose, Mouth, Throat: no problem reported Respiratory: no problem reported Cardiovascular: + edema; no problem reported Gastrointestinal: no nausea, no vomiting and no problem reported Musculoskeletal: no problem reported Integumentary: + skin ulcer, + wounds and + erythema Neurologic: + loss of sensation, + numbness and + pa resthesia; no generalized weakness Psychiatric: no problem reported Physical Exam Physical Exam: Left lower extremity focused exam: DP/PT pulses non-palpable. CFT brisk to the digits Proximally, though the leading edge of all toes at this point is necrotic and nonviable. There is no evidence of wet gangrene though increasing demarcation, consistent with this dry gangrenous change is appreciated to the Forefoot. No evidence of cellulitis or deeper osteomyelitis is appreciated. Constitutional: WD/WN, vitals as above + ill appearing, + morbidly obese, + obese and + lethargic; no acute distress Eyes: PERRL, conjunctivae normal, anicteric sclerae ENMT: external ear and nose normal, oropharynx normal Mouth: + poor dentition Neck: trachea midline, no thyromegaly normal visual inspection Respiratory: normal respiratory effort; no respiratory distress Cardiovascular: Rate/Rhythm: regular rate and regular rhythm Vessels: + posterior tibial pulses abnormal and + dorsalis pedis pulses abnormal Chest (Breasts): Chest: normal inspection of chest Gastrointestinal (Abdomen): Inspection/Auscultation: abdomen normal to inspection Percussion/Palpation: + abdomen tender and abdomen soft Musculoskeletal: no cyanosis or clubbing, extremities motor strength 5/5 Head/Neck/Chest: normocephalic and head atraumatic Extremities: extremities normal to inspection Skin: + ulcer, + wound, + skin atrophy, + esch ar and + nails dystrophic Neurologic: awake; no focal motor deficits Psychiatric: A+Ox3, euthymic affect Results & Data Results & Data Vital Signs (Past 12 Hours) Vital Signs Temp Pulse Pulse Resp BP Pulse Ox O2 Del Method 12/09/24 15:53 36.9 C 91 H 16 130/48 L 96 Room Air 12/09/24 14:44 63 12/09/24 12:05 37.0 C 60 16 142/74 H 98 Room Air 12/09/24 09:06 36.5 C 62 16 102/51 L 100 Room Air 12/09/24 07:25 68
[2024-12-09 22:43] LABS: Appearance Urine Cloudy (Clear); Bacteria Urine Automated None Seen (None Seen); Cast Urine Automated 0-2 /lpf (0-2); Epithelial Cell Urine Auto 0-2 /hpf (0-2); Glucose Urine UA 1+ (Negative); RBC Urine Automated 0-2 /hpf (0-2); WBC Urine Automated >50 /hpf (0-5)
--- NOTE | 2024-12-10 22:11 | Discharge Summary ---
Discharge Summary Date of Service December 10, 2024 Principal Dx & Hospital Course #1 = Principal Diagnosis (1) Wound, open, foot with complication: Chronic diabetic ulcer/wound on left foot, 1st and 2nd DIP, PIP with bullae (ruptured) and without discharge (sanguineous, serous, suppurative) on 12/09/2024 (2) DM (diabetes mellitus), type 2, uncontrolled w/neurologic complication: Poorly controlled with HbA1c 13.7% (12/01/2024, 5:18am). cf., admission glucose 600 mg/dL, anion gap 9, CO2 28 (12/01/2024, 5:14am). cf., discharge glucose 136 mg/dL (12/10/2024, 7:48am). Most likely HHS, NOT DKA given normal anion gap and normal CO2 levels noted above. Etiology of HHS is most likely a combination of dietary indiscretion and medication non-compliance, but I cannot exclude acute UTI as an alternative etiology for patient's normal anion gap HHS. Hence, I ordered U/A (12/09/2024, 11:59am) to rule out acute UTI as an alternative etiology for patient's normal anion gap HHS; urine culture (12/09/2024, 9:42pm) negative with less than 1,000 cfu/mL. In the interim, I have opted to to continue hospital-started lantus 10 units SQ bid and hospital-started aspart insulin sliding scale qac + qhs with POC glucose qac + qhs; instead, I have opted to resume patient's home-scheduled lantus insulin 50 units SQ qam and metformin 1000mg PO bid to improve short-term glycemic control after patient is discharged back to his home on 12/10/2024. (3) Factor V Leiden mutation: Continue long-term active anticoagulation utilizing home-scheduled xarelto 20mg PO daily while patient remains in [facility] and on hospital discharge back to his home on 12/10/2024. (4) Hypertension: Modestly controlled with discharge BP 96/56 (12/10/2024, 4:03pm) on home- scheduled lasix 80mg PO qam, home-scheduled lisinopril 10mg PO qam, and metoprolol tartrate 50mg PO bid while in [facility]. Patient will continue all 3 home-scheduled medications on hospital discharge home on 12/10/2024. (5) Mixed restrictive and obstructive lung disease: Observe as patient reports no cough, wheeze, SOB/GREEN on hospital discharge date 12/09/2024. (6) Morbid obesity: Patient is not morbidly obese; patient is obese with BMI 35.2 (height 177.8 cm; weight 111.2 kg). Patient needs to lose at least 32.6 kg in order to attain a BMI 24.9, at which level, the patient would no longer be deemed obese or overweight. Patient states that he is too old at 69 years of age to modify his diet, exercise, and/or lifestyle in order to lose any weight over any time period. (7) Hyperglycemia: See bullet #2 above. Plan # Postop day 5 left lower extremity angio with AIR ANALYST stenting follow-up PT/AT arteries - See vascular surgery notes continue Eliquis - Continue follow-up podiatry, continue conservative management, # left lower extremity cellulitis/left foot ulceration #Status postdebridement See wound care pictures, continue antibiotic coverage for MSSA - No growth x 5 days from the culture from 26. - Images forwarded to podiatry for consideration for additional debridement procedure high risk for progression to dry gangrene, CRP minimally elevated, procalcitonin negative. - CRP trending downward, no need to continue daily checks unless clinical signs of infection appear #Hypotension: - 500cc NS bolus -Check orthostatic VS, ongoing volume expansion as tolerated. MAP > 60. - stable, asymptomatic, no tachycardia, taking oral intake - Stable, appropriate for discharge no low blood pressures x 36 hours - Okay to downgrade to [facility] with telemetry - Still modestly hypotensive but asymptomatic. Will check orthostatic vital signs today, fluid bolus as needed #Anemia - no evidence of blood loss, likely dilutional, hgb after initial decrease - continue anticoagulants per prior orders. - daily monitor anemia stable at 12.0 ericka - No evidence of bleeding, stable hemoglobin #Severe PAD -New, Confirmed and severe by CT Angio with Multifocal severe stenosis throughout the infrapopliteal vessels. contributing to blistering as above -consult to vascular surgery, secondary prevention as noted below -Continue Xarelto and ASA #Massively uncontrolled type 2 diabetes #Hyperosmolar hyperglycemic state #With Complications (longstanding neuropathy,+/- retinopathy) - continue Lantus plus SS, will titrate to meal time insulin based on oral intake, expect quite a bit of variability in the near term with celulitis, vascular d/z and severity of recent hyperglycemia - generally within goal #Hyponatremia - WNL after compensation for elevated blood sugars, normalizing this morning - Stable #HLD - increase to high dose given PAD #Factor V Leiden - chronically anticoagulated with Xarelto, continue #Morbid obesity with BMI of 33.5/CHRISTIANO/mixed restrictive and obstructive lung disease Will ask for CPAP at bedtime #hypertensioncontinue lisinopril and metoprolol. Follow pressures, follow BMP periodically #seizure disordercontinue Keppra #B12 deficiencyreplace #BPH with LUTScontinue Flomax #FEN - HH and DM2 diet, monitor intake #CODE STATUS - Full Code per his wishes Admission HPI Per Admitting Provider patient is a pleasant but very fatigued 69-year-old male. HPI somewhat limited due to his fatiguehe acknowledges that he is just very tired from having been in the ER through the nightand I am able to have him converse enough to know that he is not altered, he is oriented, he just is very fatigued. His left foot started hurting in the last day or 2 that he noticed, but he does note that he has fairly severe neuropathy and has very little feeling in his feet, so does acknowledge that this could have been going on longer. No fevers chills or sweats. No other symptoms no chest pain no shortness of breath. He came to the ER due to the foot pain and blisteringhere he was found to have blistering of his 1st and 2nd toes, concern on cellulitisCT of the foot also looks concerning for infection. His blood sugars were also 600, we were asked to admit for ongoing management. Discharge Plan Discharge Items Patient Disposition: Home - Home Health Services Reason For Visit: Chronic left tibial artery occlusion Discharge Diagnosis: Chronic left tibial artery occlusion, s/p percutaneous Transluminal Angioplasty and Stenting of Anterior and Posterior Tibial Artery, Lithotripsy of Anterior and Posterior Tibial Artery, Mechanical Closure and Ultrasound Guidance of Right Common Femoral Artery, 12/03/2024, 8:00am ([facility] Vascular Surgeon Dr. Mamadou Prasad). Condition on Discharge: Fair Activity: Resume your previous activity Lifting: Gradually increase as tolerated Bathing: No limitations Exercise/Sports: Gradually increase as tolerated Driving/Machine Use: No limitations Weightbearing: Full weightbearing Non-emergency contact: Primary Care Provider Call non-emergency contact if: you have any medication questions Follow-up/Referrals: Joe Nevarez MD [Primary Care Provider] - Diet: Carb Consistent or DM2 and Heart Healthy Addtl Attending Provider Instructions: 1. See your PCP Dr. Joe Nevarez within 5-7 days of hospital discharge for routine follow up visit. 2. See your Vascular Surgeon Dr. Mamadou Prasad within 5-7 days of hospital discharge for routine follow up visit after undergoing percutaneous Transluminal Angioplasty and Stenting of Anterior and Posterior Tibial Artery, Lithotripsy of Anterior and Posterior Tibial Artery, Mechanical Closure and Ultrasound Guidance of Right Common Femoral Artery, 12/03/2024, 8:00am ([facility] Vascular Surgeon Dr. Mamadou Prasad) to treat chronic left tibial artery occlusion. 3. See your Associate Juvenile Court Judge Dr. Bora Moreno within 5-7 days of hospital discharge for routine follow up visit of left foot bullae (ruptured, no discharge (sanguineous, serous, suppurative) @ 1st and 2nd PIP and DIP joints. Pending Studies at Discharge: No Stand-Alone Forms: My [facility] [employer], Smoking Cessation Medications and DC Order Prescriptions: New clopidogrel 75 mg tablet 75 mg PO DAILY Qty: 30 6RF Continued ergocalciferol (vitamin D2) 1,250 mcg (50,000 unit) capsule 50,000 unit PO Q7D@0900 Qty: 14 0RF Rx Instructions: OTC unable to verify (DME) lancets [OneTouch Delica Lancets] 30 gauge misc See Dose Instructions .ROUTE .MEDSUPPLY Qty: 25 0RF Dose Instruction: As directed Rx Instructions: As directed metformin 1,000 mg tablet 1,000 mg PO BID Qty: 180 3RF furosemide 80 mg tablet 80 mg PO QAM Qty: 90 3RF lisinopril 10 mg tablet 10 mg PO QAM Qty: 90 3RF (DME) insulin syringe-needle U-100 0.5 mL 31 gauge x 5/16" syringe See Rx Instructions .Route Qty: 100 0RF Rx Instructions: As directed (DME) blood-glucose meter [Accu-Chek Guide Me Glucose Mtr] Misc See Rx Instructions .Route Qty: 1 0RF Rx Instructions: As directed (DME) OneTouch Ultra Test Strip See Rx Instructions .Route Qty: 300 3RF Rx Instructions: TEST 3 TIMES DAILY; DX CODE E11.65 (DME) insulin syringe-needle U-100 1 mL 31 gauge x 5/16 syringe See Rx Instructions .ROUTE .MEDSUPPLY Qty: 300 3RF Rx Instructions: USE 3 TIMES DAILY; DX CODE- E11.49, E11.65 atorvastatin 20 mg tablet 20 mg PO UD 90 Days Qty: 90 3RF Rx Instructions: 20mg po qam last filled 06/20/23 90 day supply #90 Xarelto 20 mg tablet 20 mg PO DAILY Qty: 90 3RF Rx Instructions: 20 mg po daily. no fill history available (DME) pen needle, diabetic [Comfort EZ Pen [place]] 31 gauge x 1/4" needle See Rx Instructions .Route Qty: 200 8RF Rx Instructions: Inject 4 times daily insulin glargine [Lantus Solostar U-100 Insulin] 100 unit/mL (3 mL) insulin pen 50 unit subcut QAM MDD 70 Qty: 30 2RF (DME) lancets [Accu-Chek Softclix Lancets] [facility] See Rx Instructions .Route Qty: 300 3RF Rx Instructions: test blood sugars three times daily (DME) lancing device with lancets [Accu-Chek Soft Dev Lancets] Kit See Rx Instructions .Route Qty: 1 0RF Rx Instructions: check glucose 3 times tamsulosin 0.4 mg capsule 0.4 mg PO DAILY Qty: 30 2RF tadalafil 20 mg tablet 20 mg PO DAILY PRN (Reason: sexual activity) Qty: 30 2RF Rx Instructions: administer approximately 30min before sexual activity; do not use more than 1 dose per 24hrs insulin aspart U-100 [Novolog FlexPen U-100 Insulin] 100 unit/mL (3 mL) insulin pen 17 unit subcut TID MDD 60 Qty: 30 2RF mupirocin calcium 2 % cream 1 applic topical BID Qty: 15 0RF clotrimazole 1 % cream 1 applic topical BID Qty: 30 0RF acetaminophen 325 mg Tablet 650 mg PO Q6H PRN (Reason: pain) Qty: 30 0RF metoprolol tartrate 50 mg tablet 50 mg PO UD Rx Instructions: 50 mg po bid. no fill history available ketoconazole 2 % cream 1 applic topical UD Rx Instructions: 1 mohsen topical daily. no fill history available Apply to groin folds daily for 3 weeks for intertrigo levetiracetam [Keppra] 500 mg Tablet 500 mg PO BID Qty: 60 0RF cyanocobalamin (vitamin B-12) 500 mcg Tablet 500 mcg PO QAM Qty: 30 0RF Discontinued fluconazole 200 mg tablet 200 mg PO DAILY Qty: 7 0RF Admission Data Admit Date/Time: 12/01/24 08:25 Attending Provider: Sebastien Talavera Admit Provider: Carlos Weaver Primary Care Provider: Joe Nevarez Other Providers: Carlos Weaver; Mamadou Prasad; Bora Moreno Hospital Stay Data Consultations 12/01/24 08:12 ED Decision to Admit Stat 12/01/24 12:02 Consult Vascular Surgery Routine 12/02/24 09:16 Consult Podiatry Routine Procedures Performed Operation Date: 12/03/24 08:00 Actual Procedures p Percutaneous Transluminal Angioplasty and Stenting of Anterior and Posterior Tibial Artery, Lithotripsy of Anterior and Posterior Tibial Artery, Mechanical Closure and Ultrasound Guidance of Right Common Femoral Artery, Moderate Sedation 10:20-13:04(Left) - Mamadou Prasad MD Diagnostic Imagining Performed 12/01/24 06:23 CT foot LT wo con Stat 12/01/24 09:57 CT angio LE LT w inc wo if don Stat 12/01/24 21:46 CT head/brain wo con Stat 12/03/24 07:25 EV angio LE LT Routine US EV guide vascular access Routine Pending Results Patient Have Any Pending Studies at Discharge: No Discharge Instructions Given to Patient (Per Discharging Provider) 1. See your PCP Dr. Joe Nevarez within 5-7 days of hospital discharge for routine follow up visit. 2. See your Vascular Surgeon Dr. Mamadou Prasad within 5-7 days of hospital discharge for routine follow up visit after undergoing percutaneous Transluminal Angioplasty and Stenting of Anterior and Posterior Tibial Artery, Lithotripsy of Anterior and Posterior Tibial Artery, Mechanical Closure and Ultrasound Guidance of Right Common Femoral Artery, 12/03/2024, 8:00am ([facility] Vascular Surgeon Dr. Mamadou Prasad) to treat chronic left tibial artery occlusion. 3. See your Associate Juvenile Court Judge Dr. Bora Moreno within 5-7 days of hospital discharge for routine follow up visit of left foot bullae (ruptured, no discharge (sanguineous, serous, suppurative) @ 1st and 2nd PIP and DIP joints. Total Time Total Time Spent Total Time Spent (In Minutes): 35 minutes. Of this time period, 19 minutes were spent in coordinating patient's discharge. Coding Level of Care Code 50956 INP/OBS DISCH >30 MIN Diagnoses Wound, open, foot with complication S91.309A DM (diabetes mellitus), type 2, uncontrolled w/neurologic complication E11.49; E11.65 Factor V Leiden mutation D68.51 Hypertension I10 Mixed restrictive and obstructive lung disease J44.9; J98.4 Morbid obesity E66.01 Hyperglycemia R73.9
[2024-12-11 11:39] LABS: Cdiff Toxin B Gene (2yr or >) Negative Cdiff Gene (Neg)
[2024-12-11] MEDS: LOPERAMIDE HCL 2 MG CAP PO PRN (14:02)
--- NOTE | 2024-12-11 20:43 | Discharge Summary ---
Discharge Summary Date of Service December 11, 2024 Principal Dx & Hospital Course #1 = Principal Diagnosis (1) Wound, open, foot with complication: Chronic diabetic ulcer/wound on left foot, 1st and 2nd DIP, PIP with bullae (ruptured) and without discharge (sanguineous, serous, suppurative) on 12/09/2024 (2) DM (diabetes mellitus), type 2, uncontrolled w/neurologic complication: Poorly controlled with HbA1c 13.7% (12/01/2024, 5:18am). cf., admission glucose 600 mg/dL, anion gap 9, CO2 28 (12/01/2024, 5:14am). cf., discharge glucose 136 mg/dL (12/10/2024, 7:48am). Most likely HHS, NOT DKA given normal anion gap and normal CO2 levels noted above. Etiology of HHS is most likely a combination of dietary indiscretion and medication non-compliance, but I cannot exclude acute UTI as an alternative etiology for patient's normal anion gap HHS. Hence, I ordered U/A (12/09/2024, 11:59am) to rule out acute UTI as an alternative etiology for patient's normal anion gap HHS; urine culture (12/09/2024, 9:42pm) negative with less than 1,000 cfu/mL. In the interim, I have opted to to continue hospital-started lantus 10 units SQ bid and hospital-started aspart insulin sliding scale qac + qhs with POC glucose qac + qhs; instead, I have opted to resume patient's home-scheduled lantus insulin 50 units SQ qam and metformin 1000mg PO bid to improve short-term glycemic control after patient is discharged back to his home on 12/10/2024. (3) Factor V Leiden mutation: Continue long-term active anticoagulation utilizing home-scheduled xarelto 20mg PO daily while patient remains in [facility] and on hospital discharge back to his home on 12/10/2024. (4) Hypertension: Modestly controlled with discharge BP 96/56 (12/10/2024, 4:03pm) on home- scheduled lasix 80mg PO qam, home-scheduled lisinopril 10mg PO qam, and metoprolol tartrate 50mg PO bid while in [facility]. Patient will continue all 3 home-scheduled medications on hospital discharge home on 12/10/2024. (5) Mixed restrictive and obstructive lung disease: Observe as patient reports no cough, wheeze, SOB/GREEN on hospital discharge date 12/09/2024. (6) Morbid obesity: Patient is not morbidly obese; patient is obese with BMI 35.2 (height 177.8 cm; weight 111.2 kg). Patient needs to lose at least 32.6 kg in order to attain a BMI 24.9, at which level, the patient would no longer be deemed obese or overweight. Patient states that he is too old at 69 years of age to modify his diet, exercise, and/or lifestyle in order to lose any weight over any time period. (7) Hyperglycemia: See bullet #2 above. Plan # Postop day 5 left lower extremity angio with [employer]GER stenting follow-up PT/AT arteries - See vascular surgery notes continue Eliquis - Continue follow-up podiatry, continue conservative management, # left lower extremity cellulitis/left foot ulceration #Status postdebridement See wound care pictures, continue antibiotic coverage for MSSA - No growth x 5 days from the culture from 26. - Images forwarded to podiatry for consideration for additional debridement procedure high risk for progression to dry gangrene, CRP minimally elevated, procalcitonin negative. - CRP trending downward, no need to continue daily checks unless clinical signs of infection appear #Hypotension: - 500cc NS bolus -Check orthostatic VS, ongoing volume expansion as tolerated. MAP > 60. - stable, asymptomatic, no tachycardia, taking oral intake - Stable, appropriate for discharge no low blood pressures x 36 hours - Okay to downgrade to [facility] with telemetry - Still modestly hypotensive but asymptomatic. Will check orthostatic vital signs today, fluid bolus as needed #Anemia - no evidence of blood loss, likely dilutional, hgb after initial decrease - continue anticoagulants per prior orders. - daily monitor anemia stable at 12.0 ericka - No evidence of bleeding, stable hemoglobin #Severe PAD -New, Confirmed and severe by CT Angio with Multifocal severe stenosis throughout the infrapopliteal vessels. contributing to blistering as above -consult to vascular surgery, secondary prevention as noted below -Continue Xarelto and ASA #Massively uncontrolled type 2 diabetes #Hyperosmolar hyperglycemic state #With Complications (longstanding neuropathy,+/- retinopathy) - continue Lantus plus SS, will titrate to meal time insulin based on oral intake, expect quite a bit of variability in the near term with celulitis, vascular d/z and severity of recent hyperglycemia - generally within goal #Hyponatremia - WNL after compensation for elevated blood sugars, normalizing this morning - Stable #HLD - increase to high dose given PAD #Factor V Leiden - chronically anticoagulated with Xarelto, continue #Morbid obesity with BMI of 33.5/CHRISTIANO/mixed restrictive and obstructive lung disease Will ask for CPAP at bedtime #hypertensioncontinue lisinopril and metoprolol. Follow pressures, follow BMP periodically #seizure disordercontinue Keppra #B12 deficiencyreplace #BPH with LUTScontinue Flomax #FEN - HH and DM2 diet, monitor intake #CODE STATUS - Full Code per his wishes Admission HPI Per Admitting Provider patient is a pleasant but very fatigued 69-year-old male. HPI somewhat limited due to his fatiguehe acknowledges that he is just very tired from having been in the ER through the nightand I am able to have him converse enough to know that he is not altered, he is oriented, he just is very fatigued. His left foot started hurting in the last day or 2 that he noticed, but he does note that he has fairly severe neuropathy and has very little feeling in his feet, so does acknowledge that this could have been going on longer. No fevers chills or sweats. No other symptoms no chest pain no shortness of breath. He came to the ER due to the foot pain and blisteringhere he was found to have blistering of his 1st and 2nd toes, concern on cellulitisCT of the foot also looks concerning for infection. His blood sugars were also 600, we were asked to admit for ongoing management. Discharge Exam Constitutional General: Comfortable, cooperative and coherent. Wide awake and alert. Not confused, lethargic, or obtunded. Patient speaks in complete, fluent, and articulate sentences, without pause, interruption, cough, or wheeze. HEENT: NC/AT. EOMI. PERRL. No nystagmus, gaze paresis, anisocoria, miosis, mydriasis, chemosis, hyphema, scleral injection, conjunctivitis, or pterygium. No otorrhea. No rhinorrhea. Neck: Supple, no stridor, bruit, or goiter. Jugular venous pressure 3 cm above the sternal angle of Rick, which is typically 5 cm above the right atrium. Lymph: No anterior/posterior cervical lymphadenopathy, suprac lavicular/infraclavicular lymphadenopathy, axilla/epitrochlear/inguinal lymphadenopathy. Chest: Symmetric rise and fall with respirations. Non-tender to palpation. Heart: RRR, S1 and S2. No S3 or S4 summation gallop. No tripartite friction rub. No murmur. Lungs: Clear to auscultation and percussion. No audible expiratory wheeze, egophony, pectoriloquy, increase in tactile fremitus, or flatness/dullness to percussion at the bases. Abd: Soft, non-tender, non-distended. Bowel sounds auscultated in all 4 quadrants. No rebound, guarding, Malone's sign, or organomegaly. Ext: No clubbing, cyanosis, or edema. 2+ pedal pulses bilaterally. Skin: No decubitus ulcer or enanthem or exanthem. Neuro: No tremors, tics, or myoclonus. DTR+. Urology: No lin catheter. No urethral discharge. Discharge Plan Discharge Items Patient Disposition: Home - Home Health Services Reason For Visit: Chronic left tibial artery occlusion Discharge Diagnosis: Chronic left tibial artery occlusion, s/p percutaneous Transluminal Angioplasty and Stenting of Anterior and Posterior Tibial Artery, Lithotripsy of Anterior an d Posterior Tibial Artery, Mechanical Closure and Ultrasound Guidance of Right Common Femoral Artery, 12/03/2024, 8:00am ([facility] Vascular Surgeon Dr. Mamadou Prasad). Condition on Discharge: Fair Activity: Resume your previous activity Lifting: Gradually increase as tolerated Bathing: No limitations Exercise/Sports: Gradually increase as tolerated Driving/Machine Use: No limitations Weightbearing: Full weightbearing Non-emergency contact: Primary Care Provider Call non-emergency contact if: you have any medication questions Follow-up/Referrals: Joe Nevarez MD [Primary Care Provider] - Diet: Carb Consistent or DM2 and Heart Healthy Addtl Attending Provider Instructions: 1. See your PCP Dr. Joe Nevarez within 5-7 days of hospital discharge for routine follow up visit. 2. See your Vascular Surgeon Dr. Mamadou Prasad within 5-7 days of hospital discharge for routine follow up visit after undergoing percutaneous Transluminal Angioplasty and Stenting of Anterior and Posterior Tibial Artery, Lithotripsy of Anterior and Posterior Tibial Artery, Mechanical Closure and Ultrasound Guidjessie ce of Right Common Femoral Artery, 12/03/2024, 8:00am ([facility] Vascular Surgeon Dr. Mamadou Prasad) to treat chronic left tibial artery occlusion. 3. See your Rip Saw Operator Dr. Bora Moreno within 5-7 days of hospital discharge for routine follow up visit of left foot bullae (ruptured, no discharge (sanguineous, serous, suppurative) @ 1st and 2nd PIP and DIP joints. Pending Studies at Discharge: No Stand-Alone Forms: My [facility] 3Touch, Smoking Cessation Medications and DC Order Prescriptions: New clopidogrel 75 mg tablet 75 mg PO DAILY Qty: 30 6RF Continued ergocalciferol (vitamin D2) 1,250 mcg (50,000 unit) capsule 50,000 unit PO Q7D@0900 Qty: 14 0RF Rx Instructions: OTC unable to verify (DME) lancets [OneTouch Delica Lancets] 30 gauge misc See Dose Instructions .ROUTE .MEDSUPPLY Qty: 25 0RF Dose Instruction: As directed Rx Instructions: As directed metformin 1,000 mg tablet 1,000 mg PO BID Qty: 180 3RF furosemide 80 mg tablet 80 mg PO QAM Qty: 90 3RF lisinopril 10 mg tablet 10 mg PO QAM Qty: 90 3RF (DME) insulin syringe-needle U-100 0.5 mL 31 gauge x 5/16" syringe See Rx Instructions .Route Qty: 100 0RF Rx Instructions: As directed (DME) blood-glucose meter [Accu-Chek Guide Me Glucose Mtr] Misc See Rx Instructions .Route Qty: 1 0RF Rx Instructions: As directed (DME) OneTouch Ultra Test Strip See Rx Instructions .Route Qty: 300 3RF Rx Instructions: TEST 3 TIMES DAILY; DX CODE E11.65 (DME) insulin syringe-needle U-100 1 mL 31 gauge x 5/16 syringe See Rx Instructions .ROUTE .MEDSUPPLY Qty: 300 3RF Rx Instructions: USE 3 TIMES DAILY; DX CODE- E11.49, E11.65 atorvastatin 20 mg tablet 20 mg PO UD 90 Days Qty: 90 3RF Rx Instructions: 20mg po qam last filled 06/20/23 90 day supply #90 Xarelto 20 mg tablet 20 mg PO DAILY Qty: 90 3RF Rx Instructions: 20 mg po daily. no fill history available (DME) pen needle, diabetic [Comfort EZ Pen [place]] 31 gauge x 1/4" needle See Rx Instructions .Route Qty: 200 8RF Rx Instructions: Inject 4 times daily insulin glargine [Lantus Solostar U-100 Insulin] 100 unit/mL (3 mL) insulin pen 50 unit subcut QAM MDD 70 Qty: 30 2RF (DME) lancets [Accu-Chek Softclix Lancets] Misc See Rx Instructions .Route Qty: 300 3RF Rx Instructions: test blood sugars three times daily (DME) lancing device with lancets [Accu-Chek Soft Dev Lancets] Kit See Rx Instructions .Route Qty: 1 0RF Rx Instructions: check glucose 3 times tamsulosin 0.4 mg capsule 0.4 mg PO DAILY Qty: 30 2RF tadalafil 20 mg tablet 20 mg PO DAILY PRN (Reason: sexual activity) Qty: 30 2RF Rx Instructions: administer approximately 30min before sexual activity; do not use more than 1 dose per 24hrs insulin aspart U-100 [Novolog FlexPen U-100 Insulin] 100 unit/mL (3 mL) insulin pen 17 unit subcut TID MDD 60 Qty: 30 2RF mupirocin calcium 2 % cream 1 applic topical BID Qty: 15 0RF clotrimazole 1 % cream 1 applic topical BID Qty: 30 0RF acetaminophen 325 mg Tablet 650 mg PO Q6H PRN (Reason: pain) Qty: 30 0RF metoprolol tartrate 50 mg tablet 50 mg PO UD Rx Instructions: 50 mg po bid. no fill history available ketoconazole 2 % cream 1 applic topical UD Rx Instructions: 1 mohsen topical daily. no fill history available Apply to groin folds daily for 3 weeks for intertrigo levetiracetam [Keppra] 500 mg Tablet 500 mg PO BID Qty: 60 0RF cyanocobalamin (vitamin B-12) 500 mcg Tablet 500 mcg PO QAM Qty: 30 0RF Discontinued fluconazole 200 mg tablet 200 mg PO DAILY Qty: 7 0RF Admission Data Admit Date/Time: 12/01/24 08:25 Attending Provider: Sebastien Talavera Admit Provider: Carlos Weaver Primary Care Provider: Joe Nevarez Other Providers: Carlos Weaver; Mamadou Prasad; Bora Moreno; [place],[facility]; [place],[facility], [place]; [place] Stay Data Consultations 12/01/24 08:12 ED Decision to Admit Stat 12/01/24 12:02 Consult Vascular Surgery Routine 12/02/24 09:16 Consult Podiatry Routine Procedures Performed Operation Date: 12/03/24 08:00 Actual Procedures p Percutaneous Transluminal Angioplasty and Stenting of Anterior and Posterior Tibial Artery, Lithotripsy of Anterior and Posterior Tibial Artery, Mechanical Closure and Ultrasound Guidance of Right Common Femoral Artery, Moderate Sedation 10:20-13:04(Left) - Mamadou Prasad MD Diagnostic Imagining Performed 12/01/24 06:23 CT foot LT wo con Stat 12/01/24 09:57 CT angio LE LT w inc wo if don Stat 12/01/24 21:46 CT head/brain wo con Stat 12/03/24 07:25 EV angio LE LT Routine US EV guide vascular access Routine Pending Results Patient Have Any Pending Studies at Discharge: No Discharge Instructions Given to Patient (Per Discharging Provider) 1. See your PCP Dr. Joe Nevarez within 5-7 days of hospital discharge for routine follow up visit. 2. See your Vascular Surgeon Dr. Mamadou Prasad within 5-7 days of hospital discharge for routine follow up visit after undergoing percutaneous Transluminal Angioplasty and Stenting of Anterior and Posterior Tibial Artery, Lithotripsy of Anterior and Posterior Tibial Artery, Mechanical Closure and Ultrasound Guidance of Right Common Femoral Artery, 12/03/2024, 8:00am ([facility] Vascular Surgeon Dr. Mamadou Prasad) to treat chronic left tibial artery occlusion. 3. See your Rip Saw Operator Dr. Bora Moreno within 5-7 days of hospital discharge for routine follow up visit of left foot bullae (ruptured, no discharge (sanguineous, serous, suppurative) @ 1st and 2nd PIP and DIP joints. Total Time Total Time Spent Total Time Spent (In Minutes): 35 minutes. Of this time period, 19 minutes were spent in coordinating patient's discharge. Coding Level of Care Code 52310 INP/OBS DISCH >30 MIN Diagnoses Wound, open, foot with complication S91.309A DM (diabetes mellitus), type 2, uncontrolled w/neurologic complication E11.49; E11.65 Factor V Leiden mutation D68.51 Hypertension I10 Mixed restrictive and obstructive lung disease J44.9; J98.4 Morbid obesity E66.01 Hyperglycemia R73.9
--- NOTE | 2024-12-12 08:54 | Discharge Summary ---
Discharge Summary Date of Service December 12, 2024 Principal Dx & Hospital Course #1 = Principal Diagnosis (1) Wound, open, foot with complication: Chronic diabetic ulcer/wound on left foot, 1st and 2nd DIP, PIP with bullae (ruptured) and without discharge (sanguineous, serous, suppurative) on 12/09/2024 (2) DM (diabetes mellitus), type 2, uncontrolled w/neurologic complication: Poorly controlled with HbA1c 13.7% (12/01/2024, 5:18am). cf., admission glucose 600 mg/dL, anion gap 9, CO2 28 (12/01/2024, 5:14am). cf., repeat glucose 136 mg/dL (12/10/2024, 7:48am). cf., repeat glucose 152 mg/dL (12/11/2024, 8:15pm). cf., discharge glucose 137 mg/dL (12/12/2024, 7:41am). Most likely HHS, NOT DKA given normal anion gap and normal CO2 levels noted above. Etiology of HHS is most likely a combination of dietary indiscretion and medication non-compliance, but I cannot exclude acute UTI as an alternative etiology for patient's normal anion gap HHS. Hence, I ordered U/A (12/09/2024, 11:59am) to rule out acute UTI as an alternative etiology for patient's normal anion gap HHS; urine culture (12/09/2024, 9:42pm) negative with less than 1,000 cfu/mL. In the interim, I have opted to to continue hospital-started lantus 10 units SQ bid and hospital-started aspart insulin sliding scale qac + qhs with POC glucose qac + qhs; instead, I have opted to resume patient's home-scheduled lantus insulin 50 units SQ qam and metformin 1000mg PO bid to improve short-term glycemic control after patient is discharged back to his home on 12/10/2024. (3) Factor V Leiden mutation: Continue long-term active anticoagulation utilizing home-scheduled xarelto 20mg PO daily while patient remains in [facility] and on hospital discharge back to his home on 12/12/2024. (4) Hypertension: Well controlled with discharge BP 105/74 (12/12/2024, 8:13am) on home-scheduled lasix 80mg PO qam, home-scheduled lisinopril 10mg PO qam, and metoprolol tartrate 50mg PO bid while in [facility]. Patient will continue all 3 home-scheduled medications on hospital discharge home on 12/12/2024. (5) Mixed restrictive and obstructive lung disease: Observe as patient reports no cough, wheeze, SOB/GREEN on hospital discharge date 12/12/2024. (6) Morbid obesity: Patient is not morbidly obese; patient is obese with BMI 35.2 (height 177.8 cm; weight 111.2 kg). Patient needs to lose at least 32.6 kg in order to attain a BMI 24.9, at which level, the patient would no longer be deemed obese or overweight. Patient states that he is too old at 69 years of age to modify his diet, exercise, and/or lifestyle in order to lose any weight over any time period. (7) Hyperglycemia: See bullet #2 above. Plan # Postop day 5 left lower extremity angio with FISH LIVER SORTER stenting follow-up PT/AT arteries - See vascular surgery notes continue Eliquis - Continue follow-up podiatry, continue conservative management, # left lower extremity cellulitis/left foot ulceration #Status postdebridement See wound care pictures, continue antibiotic coverage for MSSA - No growth x 5 days from the culture from 26. - Images forwarded to podiatry for consideration for additional debridement procedure high risk for progression to dry gangrene, CRP minimally elevated, procalcitonin negative. - CRP trending downward, no need to continue daily checks unless clinical signs of infection appear #Hypotension: - 500cc NS bolus -Check orthostatic VS, ongoing volume expansion as tolerated. MAP > 60. - stable, asymptomatic, no tachycardia, taking oral intake - Stable, appropriate for discharge no low blood pressures x 36 hours - Okay to downgrade to GainSpanr with telemetry - Still modestly hypotensive but asymptomatic. Will check orthostatic vital signs today, fluid bolus as needed #Anemia - no evidence of blood loss, likely dilutional, hgb after initial decrease - continue anticoagulants per prior orders. - daily monitor anemia stable at 12.0 ericka - No evidence of bleeding, stable hemoglobin #Severe PAD -New, Confirmed and severe by CT Angio with Multifocal severe stenosis throughout the infrapopliteal vessels. contributing to blistering as above -consult to vascular surgery, secondary prevention as noted below -Continue Xarelto and ASA #Massively uncontrolled type 2 diabetes #Hyperosmolar hyperglycemic state #With Complications (longstanding neuropathy,+/- retinopathy) - continue Lantus plus SS, will titrate to meal time insulin based on oral intake, expect quite a bit of variability in the near term with celulitis, vascular d/z and severity of recent hyperglycemia - generally within goal #Hyponatremia - WNL after compensation for elevated blood sugars, normalizing this morning - Stable #HLD - increase to high dose given PAD #Factor V Leiden - chronically anticoagulated with Xarelto, continue #Morbid obesity with BMI of 33.5/CHRISTIANO/mixed restrictive and obstructive lung disease Will ask for CPAP at bedtime #hypertensioncontinue lisinopril and metoprolol. Follow pressures, follow BMP periodically #seizure disordercontinue Keppra #B12 deficiencyreplace #BPH with LUTScontinue Flomax #FEN - HH and DM2 diet, monitor intake #CODE STATUS - Full Code per his wishes Admission HPI Per Admitting Provider patient is a pleasant but very fatigued 69-year-old male. HPI somewhat limited due to his fatiguehe acknowledges that he is just very tired from having been in the ER through the nightand I am able to have him converse enough to know that he is not altered, he is oriented, he just is very fatigued. His left foot started hurting in the last day or 2 that he noticed, but he does note that he has fairly severe neuropathy and has very little feeling in his feet, so does acknowledge that this could have been going on longer. No fevers chills or sweats. No other symptoms no chest pain no shortness of breath. He came to the ER due to the foot pain and blisteringhere he was found to have blistering of his 1st and 2nd toes, concern on cellulitisCT of the foot also looks concerning for infection. His blood sugars were also 600, we were asked to admit for ongoing management. Discharge Exam Constitutional General: Comfortable, cooperative and coherent. Wide awake and alert. Not confused, lethargic, or obtunded. Patient speaks in complete, fluent, and articulate sentences, without pause, interruption, cough, or wheeze. HEENT: NC/AT. EOMI. PERRL. No nystagmus, gaze paresis, anisocoria, miosis, mydriasis, chemosis, hyphema, scleral injection, conjunctivitis, or pterygium. No otorrhea. No rhinorrhea. Neck: Supple, no stridor, bruit, or goiter. Jugular venous pressure 3 cm above the sternal angle of Rick, which is typically 5 cm above the right atrium. Lymph: No anterior/posterior cervical lymphadenopathy, supraclavicular/infraclavicular lymphadenopathy, axilla/epitrochlear/inguinal lymphadenopathy. Chest: Symmetric rise and fall with respirations. Non-tender to palpation. Heart: RRR, S1 and S2. No S3 or S4 summation gallop. No tripartite friction rub. No murmur. Lungs: Clear to auscultation and percussion. No audible expiratory wheeze, egophony, pectoriloquy, increase in tactile fremitus, or flatness/dullness to percussion at the bases. Abd: Soft, non-tender, non-distended. Bowel sounds auscultated in all 4 quadrants. No rebound, guarding, Malone's sign, or organomegaly. Ext: No clubbing, cyanosis, or edema. 2+ pedal pulses bilaterally. Skin: No decubitus ulcer or enanthem or exanthem. Dry gangrene of left foot, present on hospital admission date 12/01/2024, no interval change as of disch arge date 12/12/2024; patient will follow up with outpatient Podiatry Service of Dr. Bora Moreno. Neuro: No tremors, tics, or myoclonus. DTR+. Urology: No lin catheter. No urethral discharge. Discharge Plan Discharge Items Patient Disposition: Home - Home Health Services Reason For Visit: Chronic left tibial artery occlusion Discharge Diagnosis: Chronic left tibial artery occlusion, s/p percutaneous Transluminal Angioplasty and Stenting of Anterior and Posterior Tibial Artery, Lithotripsy of Anterior and Posterior Tibial Artery, Mechanical Closure and Ultrasound Guidance of Right Common Femoral Artery, 12/03/2024, 8:00am ([facility] Vascular Surgeon Dr. Mamadou Prasad). Condition on Discharge: Fair Activity: Resume your previous activity Lifting: Gradually increase as tolerated Bathing: No limitations Exercise/Sports: Gradually increase as tolerated Driving/Machine Use: No limitations Weightbearing: Full weightbearing Non-emergency contact: Primary Care Provider Call non-emergency contact if: you have any medication questions Follow-up/Referrals: Joe Nevarez MD [Primary Care Provider] - Diet: Carb Consistent or DM2 and Heart Healthy Addtl Attending Provider Instructions: 1. See your PCP Dr. Joe Nevarez within 5-7 days of hospital discharge for routine follow up visit. 2. See your Vascular Surgeon Dr. Mamadou Prasad within 5-7 days of hospital discharge for routine follow up visit after undergoing percutaneous Transluminal Angioplasty and Stenting of Anterior and Posterior Tibial Artery, Lithotripsy of Anterior and Posterior Tibial Artery, Mechanical Closure and Ultrasound Guidance of Right Common Femoral Artery, 12/03/2024, 8:00am ([facility] Vascular Surgeon Dr. Mamadou Prasad) to treat chronic left tibial artery occlusion. 3. See your Cabinet[employer] Supervisor Dr. Bora Moreno within 5-7 days of hospital discharge for routine follow up visit of left foot bullae (ruptured, no discharge (sanguineous, serous, suppurative) @ 1st and 2nd PIP and DIP joints. Pending Studies at Discharge: No Stand-Alone Forms: [facility], Smoking Cessation Medications and DC Order Prescriptions: New clopidogrel 75 mg tablet 75 mg PO DAILY Qty: 30 6RF Continued ergocalciferol (vitamin D2) 1,250 mcg (50,000 unit) capsule 50,000 unit PO Q7D@0900 Qty: 14 0RF Rx Instructions: OTC unable to verify (DME) lancets [OneTouch Delica Lancets] 30 gauge misc See Dose Instructions .ROUTE .MEDSUPPLY Qty: 25 0RF Dose Instruction: As directed Rx Instructions: As directed metformin 1,000 mg tablet 1,000 mg PO BID Qty: 180 3RF furosemide 80 mg tablet 80 mg PO QAM Qty: 90 3RF lisinopril 10 mg tablet 10 mg PO QAM Qty: 90 3RF (DME) insulin syringe-needle U-100 0.5 mL 31 gauge x 5/16" syringe See Rx Instructions .Route Qty: 100 0RF Rx Instructions: As directed (DME) blood-glucose meter [Accu-Chek Guide Me Glucose Mtr] Misc See Rx Instructions .Route Qty: 1 0RF Rx Instructions: As directed (DME) OneTouch Ultra Test Strip See Rx Instructions .Route Qty: 300 3RF Rx Instructions: TEST 3 TIMES DAILY; DX CODE E11.65 (DME) insulin syringe-needle U-100 1 mL 31 gauge x 5/16 syringe See Rx Instructions .ROUTE .MEDSUPPLY Qty: 300 3RF Rx Instructions: USE 3 TIMES DAILY; DX CODE- E11.49, E11.65 atorvastatin 20 mg tablet 20 mg PO UD 90 Days Qty: 90 3RF Rx Instructions: 20mg po qam last filled 06/20/23 90 day supply #90 Xarelto 20 mg tablet 20 mg PO DAILY Qty: 90 3RF Rx Instructions: 20 mg po daily. no fill history available (DME) pen needle, diabetic [Comfort EZ Pen [place]] 31 gauge x 1/4" needle See Rx Instructions .Route Qty: 200 8RF Rx Instructions: Inject 4 times daily insulin glargine [Lantus Solostar U-100 Insulin] 100 unit/mL (3 mL) insulin pen 50 unit subcut QAM MDD 70 Qty: 30 2RF (DME) lancets [Accu-Chek Softclix Lancets] Misc See Rx Instructions .Route Qty: 300 3RF Rx Instructions: test blood sugars three times daily (DME) lancing device with lancets [Accu-Chek Soft Dev Lancets] Kit See Rx Instructions .Route Qty: 1 0RF Rx Instructions: check glucose 3 times tamsulosin 0.4 mg capsule 0.4 mg PO DAILY Qty: 30 2RF tadalafil 20 mg tablet 20 mg PO DAILY PRN (Reason: sexual activity) Qty: 30 2RF Rx Instructions: administer approximately 30min before sexual activity; do not use more than 1 dose per 24hrs insulin aspart U-100 [Novolog FlexPen U-100 Insulin] 100 unit/mL (3 mL) insulin pen 17 unit subcut TID MDD 60 Qty: 30 2RF mupirocin calcium 2 % cream 1 applic topical BID Qty: 15 0RF clotrimazole 1 % cream 1 applic topical BID Qty: 30 0RF acetaminophen 325 mg Tablet 650 mg PO Q6H PRN (Reason: pain) Qty: 30 0RF metoprolol tartrate 50 mg tablet 50 mg PO UD Rx Instructions: 50 mg po bid. no fill history available ketoconazole 2 % cream 1 applic topical UD Rx Instructions: 1 mohsen topical daily. no fill history available Apply to groin folds daily for 3 weeks for intertrigo levetiracetam [Keppra] 500 mg Tablet 500 mg PO BID Qty: 60 0RF cyanocobalamin (vitamin B-12) 500 mcg Tablet 500 mcg PO QAM Qty: 30 0RF Discontinued fluconazole 200 mg tablet 200 mg PO DAILY Qty: 7 0RF Discharge Orders: Discharge Order (Routine); Ordered 12/12/24 Ordered By: Sebastien Talavera Admission Data Admit Date/Time: 12/01/24 08:25 Attending Provider: Sebastien Talavera Admit Provider: Carlos Weaver Primary Care Provider: Joe Nevarez Other Providers: Carlos Weaver; Mamadou Prasad; [facility]; [facility]; [place]; [place] Stay Data Consultations 12/01/24 08:12 ED Decision to Admit Stat 12/01/24 12:02 Consult Vascular Surgery Routine 12/02/24 09:16 Consult Podiatry Routine Procedures Performed Operation Date: 12/03/24 08:00 Actual Procedures p Percutaneous Transluminal Angioplasty and Stenting of Anterior and Posterior Tibial Artery, Lithotripsy of Anterior and Posterior Tibial Artery, Mechanical Closure and Ultrasound Guidance of Right Common Femoral Artery, Moderate Sedation 10:20-13:04(Left) - Mamadou Prasad MD Diagnostic Imagining Performed 12/01/24 06:23 CT foot LT wo con Stat 12/01/24 09:57 CT angio LE LT w inc wo if don Stat 12/01/24 21:46 CT head/brain wo con Stat 12/03/24 07:25 EV angio LE LT Routine US EV guide vascular access Routine Pending Results Patient Have Any Pending Studies at Discharge: No Discharge Instructions Given to Patient (Per Discharging Provider) 1. See your PCP Dr. Joe Nevarez within 5-7 days of hospital discharge for routine follow up visit. 2. See your Vascular Surgeon Dr. Mamadou Prasad within 5-7 days of hospital discharge for routine follow up visit after undergoing percutaneous Transluminal Angioplasty and Stenting of Anterior and Posterior Tibial Artery, Lithotripsy of Anterior and Posterior Tibial Artery, Mechanical Closure and Ultrasound Guidance of Right Common Femoral Artery, 12/03/2024, 8:00am ([facility] Vascular Surgeon Dr. Mamadou Prasad) to treat chronic left tibial artery occlusion. 3. See your Cabinetmaker Supervisor Dr. Bora Moreno within 5-7 days of hospital discharge for routine follow up visit of left foot bullae (ruptured, no discharge (sanguineous, serous, suppurative) @ 1st and 2nd PIP and DIP joints. Total Time Total Time Spent Total Time Spent (In Minutes): 35 minutes. Of this time period, 19 minutes were spent in coordinating patient's discharge. Coding Level of Care Code 21314 INP/OBS DISCH >30 MIN Diagnoses Wound, open, foot with complication S91.309A DM (diabetes mellitus), type 2, uncontrolled w/neurologic complication E11.49; E11.65 Factor V Leiden mutation D68.51 Hypertension I10 Mixed restrictive and obstructive lung disease J44.9; J98.4 Morbid obesity E66.01 Hyperglycemia R73.9
[2024-12-12 13:35] VITALS: RESP 18
[2024-12-13 07:47] VITALS: PULSE 61; TEMP 98.1; O2SAT 97
[2024-12-13 12:05] VITALS: BP 138/64
--- NOTE | 2024-12-13 13:19 | Discharge Summary ---
Discharge Summary Date of Service December 13, 2024 Principal Dx & Hospital Course #1 = Principal Diagnosis (1) Wound, open, foot with complication: Chronic diabetic ulcer/wound on left foot, 1st and 2nd DIP, PIP with bullae (ruptured) and without discharge (sanguineous, serous, suppurative) on 12/09/2024 (2) DM (diabetes mellitus), type 2, uncontrolled w/neurologic complication: Poorly controlled with HbA1c 13.7% (12/01/2024, 5:18am). cf., admission glucose 600 mg/dL, anion gap 9, CO2 28 (12/01/2024, 5:14am). cf., repeat glucose 136 mg/dL (12/10/2024, 7:48am). cf., repeat glucose 152 mg/dL (12/11/2024, 8:15pm). cf., discharge glucose 137 mg/dL (12/12/2024, 7:41am). Most likely HHS, NOT DKA given normal anion gap and normal CO2 levels noted above. Etiology of HHS is most likely a combination of dietary indiscretion and medication non-compliance, but I cannot exclude acute UTI as an alternative etiology for patient's normal anion gap HHS. Hence, I ordered U/A (12/09/2024, 11:59am) to rule out acute UTI as an alternative etiology for patient's normal anion gap HHS; urine culture (12/09/2024, 9:42pm) negative with less than 1,000 cfu/mL. In the interim, I have opted to to continue hospital-started lantus 10 units SQ bid and hospital-started aspart insulin sliding scale qac + qhs with POC glucose qac + qhs; instead, I have opted to resume patient's home-scheduled lantus insulin 50 units SQ qam and metformin 1000mg PO bid to improve short-term glycemic control after patient is discharged back to his home on 12/10/2024. (3) Factor V Leiden mutation: Continue long-term active anticoagulation utilizing home-scheduled xarelto 20mg PO daily while patient remains in [facility] and on hospital discharge back to his home on 12/12/2024. (4) Hypertension: Well controlled with discharge BP 105/74 (12/12/2024, 8:13am) on home-scheduled lasix 80mg PO qam, home-scheduled lisinopril 10mg PO qam, and metoprolol tartrate 50mg PO bid while in [facility]. Patient will continue all 3 home-scheduled medications on hospital discharge home on 12/12/2024. (5) Mixed restrictive and obstructive lung disease: Observe as patient reports no cough, wheeze, SOB/GREEN on hospital discharge date 12/12/2024. (6) Morbid obesity: Patient is not morbidly obese; patient is obese with BMI 35.2 (height 177.8 cm; weight 111.2 kg). Patient needs to lose at least 32.6 kg in order to attain a BMI 24.9, at which level, the patient would no longer be deemed obese or overweight. Patient states that he is too old at 69 years of age to modify his diet, exercise, and/or lifestyle in order to lose any weight over any time period. (7) Hyperglycemia: See bullet #2 above. Plan # Postop day 5 left lower extremity angio with [employer]OR stenting follow-up PT/AT arteries - See vascular surgery notes continue Eliquis - Continue follow-up podiatry, continue conservative management, # left lower extremity cellulitis/left foot ulceration #Status postdebridement See wound care pictures, continue antibiotic coverage for MSSA - No growth x 5 days from the culture from 26. - Images forwarded to podiatry for consideration for additional debridement procedure high risk for progression to dry gangrene, CRP minimally elevated, procalcitonin negative. - CRP trending downward, no need to continue daily checks unless clinical signs of infection appear #Hypotension: - 500cc NS bolus -Check orthostatic VS, ongoing volume expansion as tolerated. MAP > 60. - stable, asymptomatic, no tachycardia, taking oral intake - Stable, appropriate for discharge no low blood pressures x 36 hours - Okay to downgrade to Care-n-Sharer with telemetry - Still modestly hypotensive but asymptomatic. Will check orthostatic vital signs today, fluid bolus as needed #Anemia - no evidence of blood loss, likely dilutional, hgb after initial decrease - continue anticoagulants per prior orders. - daily monitor anemia stable at 12.0 ericka - No evidence of bleeding, stable hemoglobin #Severe PAD -New, Confirmed and severe by CT Angio with Multifocal severe stenosis throughout the infrapopliteal vessels. contributing to blistering as above -consult to vascular surgery, secondary prevention as noted below -Continue Xarelto and ASA #Massively uncontrolled type 2 diabetes #Hyperosmolar hyperglycemic state #With Complications (longstanding neuropathy,+/- retinopathy) - continue Lantus plus SS, will titrate to meal time insulin based on oral intake, expect quite a bit of variability in the near term with celulitis, vascular d/z and severity of recent hyperglycemia - generally within goal #Hyponatremia - WNL after compensation for elevated blood sugars, normalizing this morning - Stable #HLD - increase to high dose given PAD #Factor V Leiden - chronically anticoagulated with Xarelto, continue #Morbid obesity with BMI of 33.5/CHRISTIANO/mixed restrictive and obstructive lung disease Will ask for CPAP at bedtime #hypertensioncontinue lisinopril and metoprolol. Follow pressures, follow BMP periodically #seizure disordercontinue Keppra #B12 deficiencyreplace #BPH with LUTScontinue Flomax #FEN - HH and DM2 diet, monitor intake #CODE STATUS - Full Code per his wishes Admission HPI Per Admitting Provider patient is a pleasant but very fatigued 69-year-old male. HPI somewhat limited due to his fatiguehe acknowledges that he is just very tired from having been in the ER through the nightand I am able to have him converse enough to know that he is not altered, he is oriented, he just is very fatigued. His left foot started hurting in the last day or 2 that he noticed, but he does note that he has fairly severe neuropathy and has very little feeling in his feet, so does acknowledge that this could have been going on longer. No fevers chills or sweats. No other symptoms no chest pain no shortness of breath. He came to the ER due to the foot pain and blisteringhere he was found to have blistering of his 1st and 2nd toes, concern on cellulitisCT of the foot also looks concerning for infection. His blood sugars were also 600, we were asked to admit for ongoing management. Discharge Exam Constitutional General: Comfortable, cooperative and coherent. Wide awake and alert. Not confused, lethargic, or obtunded. Patient speaks in complete, fluent, and articulate sentences, without pause, interruption, cough, or wheeze. HEENT: NC/AT. EOMI. PERRL. No nystagmus, gaze paresis, anisocoria, miosis, mydriasis, chemosis, hyphema, scleral injection, conjunctivitis, or pterygium. No otorrhea. No rhinorrhea. Neck: Supple, no stridor, bruit, or goiter. Jugular venous pressure 3 cm above the sternal angle of Rick, which is typically 5 cm above the right atrium. Lymph: No anterior/posterior cervical lymphadenopathy, supraclavicular/infraclavicular lymphadenopathy, axilla/epitrochlear/inguinal lymphadenopathy. Chest: Symmetric rise and fall with respirations. Non-tender to palpation. Heart: RRR, S1 and S2. No S3 or S4 summation gallop. No tripartite friction rub. No murmur. Lungs: Clear to auscultation and percussion. No audible expiratory wheeze, egophony, pectoriloquy, increase in tactile fremitus, or flatness/dullness to percussion at the bases. Abd: Soft, non-tender, non-distended. Bowel sounds auscultated in all 4 quadrants. No rebound, guarding, Malone's sign, or organomegaly. Ext: No clubbing, cyanosis, or edema. 2+ pedal pulses bilaterally. Skin: No decubitus ulcer or enanthem or exanthem. Dry gangrene of left foot, present on hospital admission date 12/01/2024, no interval change as of disch arge date 12/13/2024; patient will follow up with outpatient Podiatry Service of Dr. Bora Moreno. Neuro: No tremors, tics, or myoclonus. DTR+. Urology: No lin catheter. No urethral discharge. Discharge Plan Discharge Items Patient Disposition: Transfer [facility] Reason For Visit: Chronic left tibial artery occlusion Discharge Diagnosis: 1. CHRONIC left tibial artery occlusion, s/p percutaneous Transluminal Angioplasty and Stenting of Anterior and Posterior Tibial Artery, Lithotripsy of Anterior and Posterior Tibial Artery, Mechanical Closure and Ultrasound Guidance of Right Common Femoral Artery, 12/03/2024, 8:00am ([facility] Vascular Surgeon Dr. Mamadou Prasad). 2. CHRONIC dry gangrene of left foot, for which patient will need to see [facility] Warp Knitter Dr. Bora Moreno on an outpatient basis for eventual/future/outpatient left transmetatarsal amputation. Condition on Discharge: Fair Activity: Resume your previous activity Lifting: Gradually increase as tolerated Bathing: No limitations Exercise/Sports: Gradually increase as tolerated Driving/Machine Use: No limitations Weightbearing: Full weightbearing Non-emergency contact: Primary Care Provider Call non-emergency contact if: you have any medication questions Follow-up/Referrals: Joe Nevarez MD [Primary Care Provider] - 12/18/24 2:00 pm Diet: Carb Consistent or DM2 and Heart Healthy Addtl Attending Provider Instructions: 1. See your PCP Dr. Joe Nevarez within 5-7 days of hospital discharge for routine follow up visit. 2. See your Vascular Surgeon Dr. Mamadou Prasad within 5-7 days of hospital discharge for routine follow up visit after undergoing percutaneous Transluminal Angioplasty and Stenting of Anterior and Posterior Tibial Artery, Lithotripsy of Anterior and Posterior Tibial Artery, Mechanical Closure and Ultrasound Guidance of Right Common Femoral Artery, 12/03/2024, 8:00am ([facility] Vascular Surgeon Dr. Mamadou Prasad) to treat chronic left tibial artery occlusion. 3. See your Warp Knitter Dr. Bora Moreno within 5-7 days of hospital discharge for routine follow up visit of left foot bullae (ruptured, no discharge (sanguineous, serous, suppurative) @ 1st and 2nd PIP and DIP joints. Pending Studies at Discharge: No Stand-Alone Forms: My [facility] Skilled Items Patient informed of condition?: Yes DNR: No Discharge Level of Care: Skilled Communicable Disease: No Discharge Prognosis: Stable Lines: None Urinary Catheter: No Medications and DC Order Prescriptions: New clopidogrel 75 mg tablet 75 mg PO DAILY Qty: 30 6RF Continued ergocalciferol (vitamin D2) 1,250 mcg (50,000 unit) capsule 50,000 unit PO Q7D@0900 Qty: 14 0RF Rx Instructions: OTC unable to verify (DME) lancets [OneTouch Delica Lancets] 30 gauge misc See Dose Instructions .ROUTE .MEDSUPPLY Qty: 25 0RF Dose Instruction: As directed Rx Instructions: As directed metformin 1,000 mg tablet 1,000 mg PO BID Qty: 180 3RF furosemide 80 mg tablet 80 mg PO QAM Qty: 90 3RF lisinopril 10 mg tablet 10 mg PO QAM Qty: 90 3RF (DME) insulin syringe-needle U-100 0.5 mL 31 gauge x 5/16" syringe See Rx Instructions .Route Qty: 100 0RF Rx Instructions: As directed (DME) blood-glucose meter [Accu-Chek Guide Me Glucose Mtr] [facility] [place] See Rx Instructions .Route Qty: 1 0RF Rx Instructions: As directed (DME) OneTouch Ultra Test Strip See Rx Instructions .Route Qty: 300 3RF Rx Instructions: TEST 3 TIMES DAILY; DX CODE E11.65 (DME) insulin syringe-needle U-100 1 mL 31 gauge x 5/16 syringe See Rx Instructions .ROUTE .MEDSUPPLY Qty: 300 3RF Rx Instructions: USE 3 TIMES DAILY; DX CODE- E11.49, E11.65 atorvastatin 20 mg tablet 20 mg PO UD 90 Days Qty: 90 3RF Rx Instructions: 20mg po qam last filled 06/20/23 90 day supply #90 Xarelto 20 mg tablet 20 mg PO DAILY Qty: 90 3RF Rx Instructions: 20 mg po daily. no fill history available (DME) pen needle, diabetic [Comfort EZ Pen [place]] 31 gauge x 1/4" needle See Rx Instructions .Route Qty: 200 8RF Rx Instructions: Inject 4 times daily insulin glargine [Lantus Solostar U-100 Insulin] 100 unit/mL (3 mL) insulin pen 50 unit subcut QAM MDD 70 Qty: 30 2RF (DME) lancets [[facility]Chek [facility]clix [facility]ets[facility] See Rx Instructions .Route Qty: 300 3RF Rx Instructions: test blood sugars three times daily (DME) lancing device with lancets [Accu-Chek Soft Dev Lancets] Kit See Rx Instructions .Route Qty: 1 0RF Rx Instructions: check glucose 3 times tamsulosin 0.4 mg capsule 0.4 mg PO DAILY Qty: 30 2RF tadalafil 20 mg tablet 20 mg PO DAILY PRN (Reason: sexual activity) Qty: 30 2RF Rx Instructions: administer approximately 30min before sexual activity; do not use more than 1 dose per 24hrs insulin aspart U-100 [Novolog FlexPen U-100 Insulin] 100 unit/mL (3 mL) insulin pen 17 unit subcut TID MDD 60 Qty: 30 2RF mupirocin calcium 2 % cream 1 applic topical BID Qty: 15 0RF clotrimazole 1 % cream 1 applic topical BID Qty: 30 0RF acetaminophen 325 mg Tablet 650 mg PO Q6H PRN (Reason: pain) Qty: 30 0RF metoprolol tartrate 50 mg tablet 50 mg PO UD Rx Instructions: 50 mg po bid. no fill history available ketoconazole 2 % cream 1 applic topical UD Rx Instructions: 1 mohsen topical daily. no fill history available Apply to groin folds daily for 3 weeks for intertrigo levetiracetam [Keppra] 500 mg Tablet 500 mg PO BID Qty: 60 0RF cyanocobalamin (vitamin B-12) 500 mcg Tablet 500 mcg PO QAM Qty: 30 0RF Discontinued fluconazole 200 mg tablet 200 mg PO DAILY Qty: 7 0RF Discharge Orders: Discharge Order (Routine); Ordered 12/13/24 Ordered By: Sebastien Talavera Admission Data Admit Date/Time: 12/01/24 08:25 Attending Provider: Sebastien Talavera Admit Provider: Carlos Weaver Primary Care Provider: Joe Nevarez Other Providers: Carlos Weaver; Mamadou Prasad; Bora Moreno; Elia Lopes [facility]; [facility]; [place] Other Interventions: Discharge Summary Assessment (RN) Last Done: 12/13/24 11:39 Hospital Stay Data Consultations 12/01/24 08:12 ED Decision to Admit Stat 12/01/24 12:02 Consult Vascular Surgery Routine 12/02/24 09:16 Consult Podiatry Routine Procedures Performed Operation Date: 12/03/24 08:00 Actual Procedures p Percutaneous Transluminal Angioplasty and Stenting of Anterior and Posterior Tibial Artery, Lithotripsy of Anterior and Posterior Tibial Artery, Mechanical Closure and Ultrasound Guidance of Right Common Femoral Artery, Moderate Sedation 10:20-13:04(Left) - Mamadou Prasad MD Diagnostic Imagining Performed 12/01/24 06:23 CT foot LT wo con Stat 12/01/24 09:57 CT angio LE LT w inc wo if don Stat 12/01/24 21:46 CT head/brain wo con Stat 12/03/24 07:25 EV angio LE LT Routine US EV guide vascular access Routine Pending Results Patient Have Any Pending Studies at Discharge: No Discharge Instructions Given to Patient (Per Discharging Provider) 1. See your PCP Dr. Joe Nevarez within 5-7 days of hospital discharge for routine follow up visit. 2. See your Vascular Surgeon Dr. Mamadou Prasad within 5-7 days of hospital discharge for routine follow up visit after undergoing percutaneous Transluminal Angioplasty and Stenting of Anterior and Posterior Tibial Artery, Lithotripsy of Anterior and Posterior Tibial Artery, Mechanical Closure and Ultrasound Guidance of Right Common Femoral Artery, 12/03/2024, 8:00am ([facility] Vascular Surgeon Dr. Mamadou Prasad) to treat chronic left tibial artery occlusion. 3. See your Warp Knitter Dr. Bora Moreno within 5-7 days of hospital discharge for routine follow up visit of left foot bullae (ruptured, no discharge (sanguineous, serous, suppurative) @ 1st and 2nd PIP and DIP joints. Total Time Total Time Spent Total Time Spent (In Minutes): 35 minutes. Of this time period, 19 minutes were spent in coordinating patient's discharge. Coding Level of Care Code 90547 INP/OBS DISCH >30 MIN Diagnoses Wound, open, foot with complication S91.309A DM (diabetes mellitus), type 2, uncontrolled w/neurologic complication E11.49; E11.65 Factor V Leiden mutation D68.51 Hypertension I10 Mixed restrictive and obstructive lung disease J44.9; J98.4 Morbid obesity E66.01 Hyperglycemia R73.9
== END 2024-12-13 14:21 | DRG 279 ==
LOC: ED 05:01 → EDINP 08:25 → SUATTDRO 08:25 → 3W 11:16 → 2S 22:03 → 2N 12-06 23:59 → 3N 12-11 22:48

== ENCOUNTER 2024-12-13 16:02 | Observation (INO) ==
--- NOTE | 2024-12-13 18:39 | History & Physical Report ---
Date of Service December 13, 2024 Assessment & Plan (1) Gangrene of left foot: (2) Wound of left foot: (3) Tibial artery occlusion, left: (4) DM (diabetes mellitus), type 2, uncontrolled w/neurologic complication: (5) Hypertension: (6) Status post placement of cardiac pacemaker: (7) Non-proliferative diabetic retinopathy, both eyes: (8) CHRISTIANO (obstructive sleep apnea): (9) Mixed restrictive and obstructive lung disease: (10) Gastroesophageal reflux disease: (11) Atrial flutter: (12) BPH w urinary obs/LUTS: (13) Seizure-like activity: (14) Factor V Leiden mutation: Plan 69yo male with PAD s/p Percutaneous Transluminal Angioplasty/Stenting of LEFT Anterior and Posterior Tibial Arteries as well as Lithotripsy of LEFT Anterior and Posterior Tibial Arteries (12/03/[address] Xander Prasad), uncontrolled T2DM, untreated CHRISTIANO, BPH, h/o atrial flutter, seizure disorder, pacemaker placement in 2021 for complete heart block, diabetic retinopathy, hyperlipidemia, and COPD. He presents to the [facility] from [facility] after arriving there earlier this afternoon and was felt not to be an appropriate candidate for their facility. Mr Dodson was hospitalized at [facility] from 12/01/24 to 12/13/24 for wounds, cellulitis, and gangrene of his left foot - particularly the first & 2nd toes. #left foot dry gangrene with great toe/2nd toe ulcerations & wounds - -will consult Dr Bora Moreno, podiatry, to perform local debridement of any devitalized skin - especially the left great toe -TMA previously recommended by Dr Moreno - that will likely need to be discussed again in light of significant dry gangrene of all the toes -continue local wound care - Aquacel Ag to any ulcer/open wound, dry dressings, etc. -surgical shoe with any ambulation -I changed all dressings with nursing assistance during my admission assessment -perfusion continues to be adequate based on my exam findings today #LLE PAD - s/p ant/post tibial artery occlusions s/p revascularization 12/03/24 - -cont plavix -cont Xarelto -cont statin (lipitor 80mg daily) - LDL <100 in September 2024 #uncontrolled T2DM - -lantus BID -novolog SSI -ac/hs BSGs -DM diet -last a1c 13.7% in November -hold metformin for now #CHRISTIANO - -during prior hospitalizations he has refused CPAP #BPH - -cont flomax #HTN - -BPs during prior stay were low or low-normal -BPs today are low-normal as well - -HOLD lisinopril -LOWER dose of metoprolol tartrate to 25mg BID (From 50mg BID) -HOLD lasix for now #candidal rash groin/scrotum - -nystatin powder TID #pacemaker status - -place on tele #h/o seizure disorder or seizure-like activity - -cont keppra 500mg BID #h/o a.flutter, h/o Factor V Leiden mutation - -cont Xarelto basic labs noted creatinine stable TSH mildly high - repeat level 4-6 weeks as outpatient will need PT/OT while here History of Present Illness Chief Complaint: left foot wound Primary Care Provider: Joe Nevarez MD 69yo male with PAD s/p Percutaneous Transluminal Angioplasty/Stenting of LEFT Anterior and Posterior Tibial Arteries as well as Lithotripsy of LEFT Anterior and Posterior Tibial Arteries (12/03/[address] Xander Prasad), uncontrolled T2DM, untreated CHRISTIANO, BPH, h/o atrial flutter, seizure disorder, pacemaker placement in 2021 for complete heart block, diabetic retinopathy, hyperlipidemia, and COPD. He presents to the [facility] from [facility] after arriving there earlier this afternoon and was felt not to be an appropriate candidate for their facility. Mr Dodson was hospitalized at [facility] from 12/01/24 to 12/13/24 for wounds, cellulitis, and gangrene of his left foot - particularly the first & 2nd toes. He underwent arterial studies showing significant anterior/posterior tibial artery occlusions in the left leg and underwent revascularization of the LLE with Dr Prasad as noted above. He was also seen by Dr Bora Moreno, podiatry, for his left foot wounds & dry gangrene. Dr Moreno was heavily concerned that Mr Dodson would ultimately need TMA of the left foot but Mr Dodson was reluctant to pursue such. Mr Dodson was d/c to [facility] today for ongoing wound care and to obtain acute rehab. Again, upon arrival to their facility, it was felt that Mr Dodson was not appropriate for their facility. During my admission assessment he reports feeling cold, is hungry, and asks for pain medicine for his right foot pain. Allergies Allergy/AdvReac Type Severity Reaction Status Date / Time ceftriaxone Allergy Severe Hives Verified 12/13/24 19:03 Sulfa (Sulfonamide Allergy Intermediate HIVES-ITCHY Verified 12/13/24 19:03 Antibiotics) RASH Home Medications Medication Instructions Recorded Confirmed Type acetaminophen 325 mg tablet 650 mg (2 x 325 mg) PO Q6H PRN 02/18/21 12/13/24 Rx pain #30 tabs rivaroxaban 20 mg tablet (Xarelto) 20 mg PO DAILY #90 tabs 03/24/21 12/13/24 Rx lancets 30 gauge (OneTouch Delica #25 ea 04/27/22 09/12/24 Rx Lancets) ketoconazole 2 % topical cream 1 applic topical UD 01/16/24 12/13/24 History metoprolol tartrate 50 mg tablet 50 mg PO BID 01/16/24 12/13/24 History levetiracetam 500 mg tablet 500 mg PO BID #60 tabs 01/24/24 12/13/24 Rx (Keppra) furosemide 80 mg tablet 80 mg PO QAM #90 tabs 03/27/24 12/13/24 Rx metformin 1,000 mg tablet 1,000 mg PO BID #180 tabs 03/27/24 12/13/24 Rx lisinopril 10 mg tablet 10 mg PO QAM #90 tabs 04/09/24 12/13/24 Rx blood sugar diagnostic (OneTouch #300 ea 06/20/24 09/12/24 Rx Ultra Test strips) blood-glucose meter (Accu-Chek #1 ea 06/20/24 09/12/24 Rx Guide Me Glucose Meter) insulin syringe-needle U-100 0.5 #100 ea 06/20/24 09/12/24 Rx mL 31 gauge x 5/16" insulin syringe-needle U-100 1 mL #300 ea 07/15/24 09/12/24 Rx 31 gauge x 5/16" clotrimazole 1 % topical cream 1 applic topical BID #30 grams 09/12/24 12/13/24 Rx pen needle, diabetic 31 gauge x #200 ea 09/16/24 09/16/24 Rx 1/4" (Comfort EZ Pen [place]) tadalafil 20 mg tablet 20 mg PO DAILY PRN sexual activity 11/14/24 12/13/24 Rx #30 tabs tamsulosin 0.4 mg capsule 0.4 mg PO DAILY #30 caps 11/14/24 12/13/24 Rx lancets (Accu-Chek Softclix #300 ea 11/26/24 11/26/24 Rx Lancets) lancing device with lancets kit #1 ea 11/26/24 11/26/24 Rx (Accu-Chek Softclix Lancing Device+Lancets kit) clopidogrel 75 mg tablet 75 mg PO DAILY #30 tabs 12/05/24 12/13/24 Rx aspirin 81 mg tablet,delayed 81 mg PO DAILY 12/13/24 12/13/24 History release atorvastatin 80 mg tablet 80 mg PO DAILY 12/13/24 12/13/24 History cyanocobalamin (vitamin B-12) 500 1,000 mcg PO QAM 12/13/24 12/13/24 History mcg tablet ergocalciferol (vitamin D2) 1,250 50,000 unit PO WK 12/13/24 12/13/24 History mcg (50,000 unit) capsule insulin aspart U-100 100 unit/mL 0 sliding scale dose subcut TID 12/13/24 12/13/24 History (3 mL) subcutaneous pen (Novolog FlexPen U-100 Insulin aspart) insulin glargine 100 unit/mL (3 10 unit subcut BID 12/13/24 12/13/24 History mL) subcutaneous pen (Lantus Solostar U-100 Insulin) loperamide 2 mg capsule 2 mg PO Q3H PRN Diarrhea 12/13/24 12/13/24 History mupirocin calcium 2 % topical cream 1 applic topical BID PRN SKIN 12/13/24 12/13/24 History IRRIATION nystatin 100,000 unit/gram topical 1 applic topical BID PRN Skin 12/13/24 12/13/24 History powder Irritation oxycodone 5 mg tablet 5 mg PO Q6H PRN Pain 12/13/24 12/13/24 History Past Med/Surg History Problem List (Updated 12/14/24 @ 00:46 by Jose Angel Rodriguez MD) Wound of left foot Gangrene of left foot Pseudohyponatremia (Acute) Chronic hyperglycemia (Acute) Cellulitis (Acute) Peripheral arterial disease Cellulitis of left foot Chronic ulcer of left foot limited to breakdown of skin Other specified peripheral vascular diseases Tibial artery occlusion, left (Acute) Wound, open, foot with complication (Acute) Erectile dysfunction BPH w urinary obs/LUTS Syncope Seizure-like activity B12 deficiency Atrial flutter Fall Hyperglycemia Multiple closed fractures of cervical vertebrae (Acute) DM (diabetes mellitus), type 2, uncontrolled w/neurologic complication (Acute) Factor V Leiden mutation (Acute) on warfarin daily Fatty liver (Chronic) ? 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) Morbid obesity (Chronic) CHRISTIANO (obstructive sleep apnea) (Acute) cpap Vitamin D deficiency (Chronic) Chronic anticoagulation Diabetic neuropathy (Chronic) Edema (Acute) Ambulatory dysfunction Status post placement of cardiac pacemaker (2021) Dual-chamber [employer] [place] DR SOLOMON SureScan Anemia Diastolic congestive heart failure Uncontrolled type 2 diabetes mellitus Loss of protective sensation of skin of foot Non-proliferative diabetic retinopathy, both eyes Vitreous hemorrhage Medical History Hypothermia Fracture of cervical vertebra, C6 C5 cervical fracture C2 cervical fracture Status post fall Acute respiratory failure with hypoxia Alcohol intoxication History of DVT (deep vein thrombosis) Complete heart block Hives Supratherapeutic INR On anticoagulant therapy warfarin daily Bradycardia Hyperglobulinemia DVT, lower extremity ? pt denies Surgical History Status post appendectomy History of colonoscopy History of wisdom tooth extraction History of tooth extraction S/P tonsillectomy Family History (Updated 12/14/24 @ 04:38 by Zak Adrian MD) Father , age 48 Coronary heart disease Myocardial infarction Mother , in her 70s COPD (chronic obstructive pulmonary disease) Stroke Family history of diabetes mellitus Diabetes Brother Prostate cancer Coronary heart disease Grandfather (Paternal) Family history of diabetes mellitus Grandmother (Paternal) Family history of diabetes mellitus Other No family history of adverse response to anesthesia Denies family history of Ovarian cancer Breast cancer Colorectal cancer Social History (Updated 12/14/24 @ 04:39 by Zak Adrian MD) Smoking Status: Never smoker Tobacco Type: Smokeless Tobacco (Dip or Chew) Second Hand Exposure: No; Do You Dip or Chew Tobacco: Yes; Hx Alcohol Use: No Hx Substance Use: No Preferred Language: Chinese Communication Ability: Effective Visual Impairment: Limited Hearing Ability: Normal Waste Reclaimer Required: No Beliefs That Will Affect Care: None marital status: Life Partner Current Living Situation: Significant Other Current Living Situation Comment: lives in [place] current occupational status: retired and disabled current occupation: [employer] How many Children do You have: 1 Feels Safe at Home: Yes Childhood Exposure to Second-Hand Smoke: No Diet: diabetic caffeine: Yes Dental Care, Regularly: No Physical Activity Frequency: Does not Exercise Seatbelt Use: always Assistive Devices: Walker Review of Systems 2 Review of Systems: gen - no fevers or chills; has been eating well eyes - no ocular complaints HENT - no URI symptoms, no sore throat or ear pain; no dysphagia CV - no chest pain pulm - no dyspnea, no cough GI - mild loose stool recently - now resolved; no abd pain or N/V - no dysuria musculo - right foot pain only neuro - chronic neuropathy of legs/feet; no headache endo - uncontrolled diabetic for years Physical Exam 2 Physical Exam: gen - lying flat in bed comfortably, NAD, awake/alert eyes - left pupil larger than right pupil (left - 3mm, right - 2mm) HENT - MMM, poor dentition, no thrush neck - no JVD, no lymph nodes, no goiter heart - RRR, s1 s2, no murmur lungs - CTA b/l, no rales, no wheeze abd - soft NT ND BS+ ext - pulses right foot 1+, pulses left foot 2+ and well-perfused with cap refill 2 sec left foot skin - see photos below - gangrene of all left sided toes especially toes 1 and 2; devitalized skin left great toe; large ulceration of great toe and 2nd toe; some maceration in between toes 1/2 and toes 2/3; no foul odor; no cellulitis of foot; copious amounts of excoriation webster on right horne/right foot neuro - strength 5/5 x 4 exts psych - a/o x 3 Skin: Results & Data Results & Data Vital Signs (Past 12 Hours) Vital Signs Temp Pulse Resp BP Pulse Ox O2 Del Method 12/13/24 17:15 36.0 C L 65 16 102/56 L 98 Room Air Laboratory Results Laboratory Results - last 24 hr 12/13/24 22:02 WBC 8.28 RBC 4.14 L Hgb 12.1 L Hct 36.6 L MCV 88.4 MCH 29.2 MCHC 33.1 RDW Std Deviation 40.2 RDW Coeff of Morena 12.4 Plt Count 403 H MPV 10.4 Immature Gran % (Auto) 0.4 Neut % (Auto) 72.4 Lymph % (Auto) 18.4 Ida % (Auto) 6.6 Eos % (Auto) 1.7 Baso % (Auto) 0.5 Neut # (Auto) 6.00 Lymph # (Auto) 1.52 Ida # (Auto) 0.55 Eos # (Auto) 0.14 Baso # (Auto) 0.04 Immature Gran # (Auto) 0.03 Sodium 133 L Potassium 4.6 Chloride 95 L Carbon Dioxide 31 Anion Gap 7 BUN 38 H Creatinine 0.88 Est Cr Clr Drug Dosing 98.5 eGFR 93.66 BUN/Creatinine Ratio 43.2 H Glucose 312 H* Calcium 9.3 Magnesium 2.1 Total Bilirubin 0.5 AST 25 ALT 9 Alkaline Phosphatase 93 Total Protein 7.5 Albumin 3.5 Globulin 4.0 Albumin/Globulin Ratio 0.9 TSH 7.100 H Free T4 0.89 Code Status & VTE Plan Code Status full code PG Care Time/CCT Total # of Minutes Spent Total Time Spent with Patient: Total time spent is greater than 50% in coordination of care (as documented) at patient's floor/unit and/or counseling patient: Coding Level of Care Code 67791 INT INP/OBS CARE 3/75MIN Diagnoses Gangrene of left foot I96 Wound of left foot S91.302A Tibial artery occlusion, left I70.202 DM (diabetes mellitus), type 2, uncontrolled w/neurologic complication E11.49; E11.65 Hypertension I10 Status post placement of cardiac pacemaker Z95.0 Non-proliferative diabetic retinopathy, both eyes E11.3293 CHRISTIANO (obstructive sleep apnea) G47.33 Mixed restrictive and obstructive lung disease J44.9; J98.4 Gastroesophageal reflux disease K21.9 Atrial flutter I48.92 BPH w urinary obs/LUTS N40.1; N13.8 Seizure-like activity R56.9 Factor V Leiden mutation D68.51
[2024-12-13] MEDS: HYDROCODONE/ACETAMINOPHEN 7.5/325MG TAB PO STA (19:51)
[2024-12-13 22:17] LABS: Hematocrit (blood only) 36.6 % (42.0-52.0); Hemoglobin 12.1 g/dl (14.0-18.0); Immature Granulocytes # (auto) 0.03 K/uL (0.01-0.20); Immature Granulocytes % (auto) 0.4 %; Mean Corpuscular Hemoglobin 29.2 pg (25.0-34.0); Mean Corpuscular Volume 88.4 fL (80.0-100.0); Platelet Count 403 K/uL (130-400); RDW Standard Deviation 40.2 fL (36.4-46.3); Red Blood Count 4.14 M/uL (4.70-6.10); White Blood Count 8.28 K/ul (4.8-10.8)
[2024-12-13] MEDS ORDERED: ACETAMINOPHEN 325 MG TAB PO PRN (22:24)
[2024-12-13 22:41] LABS: Alanine Aminotransferase 9.0 U/L (7-52); Albumin Globulin Ratio 0.9 (0.9-2); Albumin Level 3.5 gm/dl (3.4-5.0); Alkaline Phosphatase 93.0 U/L (34-104); Anion Gap 7.0 (3-11); Bilirubin,Total 0.5 mg/dl (0.2-1.0); Blood Urea Nitrogen 38.0 mg/dl (6-23); Calcium 9.3 mg/dl (8.6-10.3); Carbon Dioxide 31.0 mmol/L (21-32); Chloride 95.0 mmol/L (98-107); Creatinine Clr Calc Pharmacy 98.5 ml/min; Globulin 4.0 gm/dl (2.5-4.0); Glucose 312.0 mg/dl (70-99(Fasting)); Magnesium 2.1 mg/dl (1.7-2.4); Potassium 4.6 mmol/L (3.5-5.1); Sodium 133.0 mmol/L (136-145); Total Protein 7.5 gm/dl (6.0-8.3)
[2024-12-13] MEDS ORDERED: CARBOHYDRATES FOR HYPOGLYCEMIA PO PRN (22:45)
[2024-12-13] MEDS ORDERED: GLUCOSE 10 TAB/TUBE PO PRN (22:45)
[2024-12-13] MEDS ORDERED: DEXTROSE 50% 50 ML SYRINGE IV PRN (22:45)
[2024-12-13] MEDS ORDERED: GLUCAGON FOR INJ 1 MG VIAL SQ PRN (22:45)
[2024-12-13] MEDS ORDERED: GLUCOSE 40% GEL 15 GM TUBE PO PRN (22:45)
[2024-12-13 22:49] LABS: Thyroid Stimulating Hormone 7.1 uIu/ml (0.300-4.500)
[2024-12-13] MEDS: LANTUS PER UNIT CHARGE SQ SCH (23:04)
[2024-12-13] MEDS: METOPROLOL TARTRATE 25 MG TAB PO SCH (23:05)
[2024-12-13] MEDS: NYSTATIN POWDER 15GM BTL EXT SCH (23:05)
[2024-12-13] MEDS: levETIRAcetam 500 MG TAB PO SCH (23:05)
[2024-12-13] MEDS: INSULIN ASPART PER UNIT CHARGE SC SCH (23:05)
[2024-12-13 23:25] LABS: T4 Free Thyroxine 0.89 ng/dl (0.61-1.60)
--- NOTE | 2024-12-14 00:46 | Emergency Department Note ---
History of Present Illness General Chief complaint: Illness Stated complaint: REFERRED BY [facility] Seen by Provider: 12/13/24 18:02 History of Present Illness Provider complaint: Placement Maximum Pain Intensity: 7 69-year-old male presents emergency department from [facility] for admission for placement. Reportedly the patient was discharged from this facility today and was to be admitted to [facility]. [facility] refused to admit the patient. Patient has no acute complaints. Home Medications Medication Instructions Recorded Confirmed Type acetaminophen 325 mg tablet 650 mg (2 x 325 mg) PO Q6H PRN 02/18/21 12/13/24 Rx pain #30 tabs rivaroxaban 20 mg tablet (Xarelto) 20 mg PO DAILY #90 tabs 03/24/21 12/13/24 Rx lancets 30 gauge (OneTouch Delica #25 ea 04/27/22 09/12/24 Rx Lancets) ketoconazole 2 % topical cream 1 applic topical UD 01/16/24 12/13/24 History metoprolol tartrate 50 mg tablet 50 mg PO BID 01/16/24 12/13/24 History levetiracetam 500 mg tablet 500 mg PO BID #60 tabs 01/24/24 12/13/24 Rx (Keppra) furosemide 80 mg tablet 80 mg PO QAM #90 tabs 03/27/24 12/13/24 Rx metformin 1,000 mg tablet 1,000 mg PO BID #180 tabs 03/27/24 12/13/24 Rx lisinopril 10 mg tablet 10 mg PO QAM #90 tabs 04/09/24 12/13/24 Rx blood sugar diagnostic (OneTouch #300 ea 06/20/24 09/12/24 Rx Ultra Test strips) blood-glucose meter (Accu-Chek #1 ea 06/20/24 09/12/24 Rx Guide Me Glucose Meter) insulin syringe-needle U-100 0.5 #100 ea 06/20/24 09/12/24 Rx mL 31 gauge x 5/16" insulin syringe-needle U-100 1 mL #300 ea 07/15/24 09/12/24 Rx 31 gauge x 5/16" clotrimazole 1 % topical cream 1 applic topical BID #30 grams 09/12/24 12/13/24 Rx pen needle, diabetic 31 gauge x #200 ea 09/16/24 09/16/24 Rx 1/4" (Comfort EZ Pen [place]) tadalafil 20 mg tablet 20 mg PO DAILY PRN sexual activity 11/14/24 12/13/24 Rx #30 tabs tamsulosin 0.4 mg capsule 0.4 mg PO DAILY #30 caps 11/14/24 12/13/24 Rx lancets (Accu-Chek Softclix #300 ea 11/26/24 11/26/24 Rx Lancets) lancing device with lancets kit #1 ea 11/26/24 11/26/24 Rx (Accu-Chek Softclix Lancing Device+Lancets kit) clopidogrel 75 mg tablet 75 mg PO DAILY #30 tabs 12/05/24 12/13/24 Rx aspirin 81 mg tablet,delayed 81 mg PO DAILY 12/13/24 12/13/24 History release atorvastatin 80 mg tablet 80 mg PO DAILY 12/13/24 12/13/24 History cyanocobalamin (vitamin B-12) 500 1,000 mcg PO QAM 12/13/24 12/13/24 History mcg tablet ergocalciferol (vitamin D2) 1,250 50,000 unit PO WK 12/13/24 12/13/24 History mcg (50,000 unit) capsule insulin aspart U-100 100 unit/mL 0 sliding scale dose subcut TID 12/13/24 12/13/24 History (3 mL) subcutaneous pen (Novolog FlexPen U-100 Insulin aspart) insulin glargine 100 unit/mL (3 10 unit subcut BID 12/13/24 12/13/24 History mL) subcutaneous pen (Lantus Solostar U-100 Insulin) loperamide 2 mg capsule 2 mg PO Q3H PRN Diarrhea 12/13/24 12/13/24 History mupirocin calcium 2 % topical cream 1 applic topical BID PRN SKIN 12/13/24 12/13/24 History IRRIATION nystatin 100,000 unit/gram topical 1 applic topical BID PRN Skin 12/13/24 12/13/24 History powder Irritation oxycodone 5 mg tablet 5 mg PO Q6H PRN Pain 12/13/24 12/13/24 History Allergies Allergy/AdvReac Type Severity Reaction Status Date / Time ceftriaxone Allergy Severe Hives Verified 12/13/24 19:03 Sulfa (Sulfonamide Allergy Intermediate HIVES-ITCHY Verified 12/13/24 19:03 Antibiotics) RASH Past Med/Surg History Problem List (Updated 12/14/24 @ 00:46 by Jose Angel Rodriguez MD) Wound of left foot Gangrene of left foot Pseudohyponatremia (Acute) Chronic hyperglycemia (Acute) Cellulitis (Acute) Peripheral arterial disease Cellulitis of left foot Chronic ulcer of left foot limited to breakdown of skin Other specified peripheral vascular diseases Tibial artery occlusion, left (Acute) Wound, open, foot with complication (Acute) Erectile dysfunction BPH w urinary obs/LUTS Syncope Seizure-like activity B12 deficiency Atrial flutter Fall Hyperglycemia Multiple closed fractures of cervical vertebrae (Acute) DM (diabetes mellitus), type 2, uncontrolled w/neurologic complication (Acute) Factor V Leiden mutation (Acute) on warfarin daily Fatty liver (Chronic) ? 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) Morbid obesity (Chronic) CHRISTIANO (obstructive sleep apnea) (Acute) cpap Vitamin D deficiency (Chronic) Chronic anticoagulation Diabetic neuropathy (Chronic) Edema (Acute) Ambulatory dysfunction Status post placement of cardiac pacemaker (2021) Dual-chamber [employer] [place] DR SOLOMON SureScan Anemia Diastolic congestive heart failure Uncontrolled type 2 diabetes mellitus Loss of protective sensation of skin of foot Non-proliferative diabetic retinopathy, both eyes Vitreous hemorrhage Medical History Hypothermia Fracture of cervical vertebra, C6 C5 cervical fracture C2 cervical fracture Status post fall Acute respiratory failure with hypoxia Alcohol intoxication History of DVT (deep vein thrombosis) Complete heart block Hives Supratherapeutic INR On anticoagulant therapy warfarin daily Bradycardia Hyperglobulinemia DVT, lower extremity ? pt denies Surgical History Status post appendectomy History of colonoscopy History of wisdom tooth extraction History of tooth extraction S/P tonsillectomy Family History Father Coronary heart disease Myocardial infarction Mother COPD (chronic obstructive pulmonary disease) Stroke Family history of diabetes mellitus Diabetes Brother Prostate cancer Coronary heart disease Grandfather (Paternal) Family history of diabetes mellitus Grandmother (Paternal) Family history of diabetes mellitus Other No family history of adverse response to anesthesia Denies family history of Ovarian cancer Breast cancer Colorectal cancer Social History Smoking Status: Never smoker Tobacco Type: Smokeless Tobacco (Dip or Chew) Second Hand Exposure: No; Do You Dip or Chew Tobacco: Yes; Hx Alcohol Use: No Hx Substance Use: No Preferred Language: Nepali Communication Ability: Effective Visual Impairment: Limited Hearing Ability: Normal Deep Submergence Vehicle Crewmember Required: No Beliefs That Will Affect Care: None marital status: Life Partner Current Living Situation: Significant Other Current Living Situation Comment: Lives with sister current occupational status: retired and disabled current occupation: [employer] Other Information That Helps Us Care for You: No Feels Safe at Home: Yes Safety Concerns: Feels Safe At This Time Childhood Exposure to Second-Hand Smoke: No Diet: diabetic caffeine: Yes Dental Care, Regularly: No Physical Activity Frequency: Does not Exercise Seatbelt Use: always Assistive Devices: Walker Physical Exam Vital Signs Vital Signs - 24 hr 12/13/24 17:15 12/13/24 18:45 12/13/24 18:45 Temperature 36.0 C L Temperature Source Temporal Artery Scan Pulse Rate 65 60 60 Pulse Rate [Left Apical] Respiratory Rate 16 21 Respiratory Effort / Characteristics Non-Labored Respiratory Depth Normal Respiratory Pattern Regular Blood Pressure 102/56 L Blood Pressure [Right Arm] Blood Pressure Mean 71 Blood Pressure Mean [Right Arm] Pulse Oximetry 98 Oxygen Delivery Method Room Air Sepsis Recent Fever Within 48 Hours No Sepsis New/Unexplained Change in Mental Status N/A Sepsis Action Taken by Nursing No Action Required 12/13/24 18:51 12/13/24 19:00 12/13/24 19:01 Temperature Temperature Source Pulse Rate 64 72 Pulse Rate [Left Apical] Respiratory Rate 14 17 Respiratory Effort / Characteristics Respiratory Depth Respiratory Pattern Blood Pressure 143/66 H Blood Pressure [Right Arm] Blood Pressure Mean 96 Blood Pressure Mean [Right Arm] Pulse Oximetry Oxygen Delivery Method Sepsis Recent Fever Within 48 Hours Sepsis New/Unexplained Change in Mental Status Sepsis Action Taken by Nursing 12/13/24 19:01 12/13/24 19:01 12/13/24 19:01 Temperature Temperature Source Pulse Rate Pulse Rate [Left Apical] Respiratory Rate Respiratory Effort / Characteristics Respiratory Depth Respiratory Pattern Blood Pressure 143/66 H 143/66 H 143/66 H Blood Pressure [Right Arm] Blood Pressure Mean 96 96 96 Blood Pressure Mean [Right Arm] Pulse Oximetry Oxygen Delivery Method Sepsis Recent Fever Within 48 Hours Sepsis New/Unexplained Change in Mental Status Sepsis Action Taken by Nursing 12/13/24 19:01 12/13/24 19:07 12/13/24 19:12 Temperature 36.5 C Temperature Source Oral Pulse Rate 64 Pulse Rate [Left Apical] 64 Respiratory Rate 18 19 Respiratory Effort / Characteristics Respiratory Depth Respiratory Pattern Blood Pressure 143/66 H Blood Pressure [Right Arm] 143/66 H Blood Pressure Mean 96 Blood Pressure Mean [Right Arm] 91 Pulse Oximetry 96 94 Oxygen Delivery Method Room Air Sepsis Recent Fever Within 48 Hours Sepsis New/Unexplained Change in Mental Status Sepsis Action Taken by Nursing 12/13/24 19:21 12/13/24 19:30 12/13/24 19:30 Temperature Temperature Source Pulse Rate 62 Pulse Rate [Left Apical] Respiratory Rate 13 Respiratory Effort / Characteristics Respiratory Depth Respiratory Pattern Blood Pressure 97/51 L 97/51 L Blood Pressure [Right Arm] Blood Pressure Mean 74 74 Blood Pressure Mean [Right Arm] Pulse Oximetry Oxygen Delivery Method Sepsis Recent Fever Within 48 Hours Sepsis New/Unexplained Change in Mental Status Sepsis Action Taken by Nursing 12/13/24 19:30 12/13/24 19:30 12/13/24 19:30 Temperature Temperature Source Pulse Rate 63 Pulse Rate [Left Apical] Respiratory Rate 17 Respiratory Effort / Characteristics Respiratory Depth Respiratory Pattern Blood Pressure 97/51 L 97/51 L 97/51 L Blood Pressure [Right Arm] Blood Pressure Mean 74 74 74 Blood Pressure Mean [Right Arm] Pulse Oximetry 96 Oxygen Delivery Method Sepsis Recent Fever Within 48 Hours Sepsis New/Unexplained Change in Mental Status Sepsis Action Taken by Nursing Physical Exam GENERAL: oriented to person, place, and time. appears well-developed and well- nourished. Patient requesting food. HENT: Exam performed. - Head: Normocephalic and atraumatic. EYES: Conjunctivae and EOM are normal. Right eye exhibits no discharge. Left eye exhibits no discharge. No scleral icterus. NECK: Normal range of motion. Neck supple. No JVD present. CV: Normal rate, regular rhythm, normal heart sounds and intact distal pulses. There is no peripheral edema. Palpable radial pulses bue. PULM/CHEST: Effort normal and breath sounds normal. No respiratory distress. No stridor. no wheezes. no rales. Course Course 180: The patient was evaluated in room C3. A complete history and physical exam was performed Administered Medications Insulin Aspart (Insulin Aspart Per Unit Charge) 0 units SC ACHS CORRINA Stop: 01/12/25 22:23 Last Admin: 12/13/24 23:05 Dose: 6 units Documented By: OLIVIA Co-signed By: DIANE Insulin Glargine (Lantus Per Unit Charge) 10 units SQ BID CORRINA Stop: 01/12/25 22:23 Last Admin: 12/13/24 23:04 Dose: 10 units Documented By: BMS Co-signed By: MED Levetiracetam (Levetiracetam 500 Mg Tab) 500 mg PO BID CORRINA Stop: 01/12/25 22:23 Last Admin: 12/13/24 23:05 Dose: 500 mg Documented By: OLIVIA Metoprolol Tartrate (Metoprolol Tartrate 25 Mg Tab) 25 mg PO BID CORRINA Stop: 01/12/25 22:23 Last Admin: 12/13/24 23:05 Dose: 25 mg Documented By: OLIVIA Nystatin (Nystatin Powder 15gm Btl) 1 appln EXT TID CORRINA Stop: 01/12/25 22:23 Last Admin: 12/13/24 23:05 Dose: 1 appln Documented By: OLIVIA Discontinued Medications Hydrocodone Bitart/Acetaminophen (Hydrocodone/Acetaminophen 7.5/325mg Tab) 1 tab PO NOW [facility] Stop: 12/13/24 19:42 Last Admin: 12/13/24 19:51 Dose: 1 tab Documented By: edel Medical Decision Making Medical Records Attestation: I reviewed the patient's medical records. Medical records reviewed. Patient was admitted from December 11 to December 13 to this facility for leg wound and having a stent placed in his left lower extremity for peripheral artery disease. Laboratory Data 12/13/24 22:02 12/13/24 22:02 [facility] Narrative Patient met with case management sami. Reportedly the patient was to be admitted to [facility] today after being discharged from this facility however when the patient got there the patient refused to adhere to their non- smoking policy. [facility] also stated they would not admit the patient to their facility as he has a history of exposing his genitalia to staff and they did not think it was appropriate for him to be admitted there. Patient was thus sent back to this facility to be readmitted to be placed in another facility. Patient will be readmitted to the [facility] medicine team for placement in a different facility. Impression & Plan Wound, open, foot with complication, Tibial artery occlusion, left Discharge Plan Visit Data Chief Complaint: Illness Stated Complaint: REFERRED BY [facility] ED Provider: Jose Angel Rodriguez Discharge Problem: Wound, open, foot with complication, Tibial artery occlusion, left Patient Disposition: Admitted As Inpatient Condition: Fair Discharge Instructions Interventions: ED Discharge Assessment Last Done: 12/13/24 22:00
[2024-12-14] MEDS: CYANOCOBALAMIN (B-12) 500 MCG TABLET PO SCH (09:20)
[2024-12-14] MEDS: TAMSULOSIN HCL 0.4 MG CAP PO SCH (09:21)
[2024-12-14] MEDS: RIVAROXABAN 20 MG TAB PO SCH (09:21)
[2024-12-14] MEDS: ATORVASTATIN 40 MG TAB PO SCH (09:22)
[2024-12-14] MEDS: CLOPIDOGREL BISULFATE 75 MG TAB PO SCH (09:23)
[2024-12-14] MEDS: HYDROCODONE/ACETAMOPHEN 5/325MG TAB PO PRN (09:36)
[2024-12-14] MEDS: LANTUS PER UNIT CHARGE SQ SCH (09:38)
--- NOTE | 2024-12-14 11:28 | Podiatry Consultation ---
Date of Consultation December 14, 2024 Assessment & Plan (1) Wound of left foot: (2) Gangrene of left foot: (3) Cellulitis: Site of cellulitis of extremity: lower extremity Laterality: left Site of cellulitis: extremity Qualified Code(s): L03.116 - Cellulitis of left lower limb (4) Peripheral arterial disease: (5) Cellulitis of left foot: (6) Tibial artery occlusion, left: (7) DM (diabetes mellitus), type 2, uncontrolled w/neurologic complication: (8) Other specified peripheral vascular diseases: (9) Chronic ulcer of left foot limited to breakdown of skin: Plan Patient examined and evaluated. Superficial skin at the proximal edge of the necrotic tissue was debrided mechanically at bedside with curette and tissue nipper. Wound/foot was dressed with Aquacel Ag and sterile dressing. At this point, his foot is the same as when we last saw him 2-3 days ago. His digits remain non-viable with dry gangrene to the distal aspect of the toes, now 1-5, with the most necrosis noted to the hallux. No acute evidence of infection is noted, so we again discussed that these toes will need to be removed, but as long as they are not infected, he can take time to come to terms with this. We discussed that his only other outcome is time and auto-amputation, which is likely more painful and unpredictable. For now, we will order kodak to hopefully enzymatically debride any truly non-viable tissue and give him a better understanding of the level of amputation required; for now, he would best be suited with a TMA, though if the gangrene demarcates distally on each toe, he may opt for partial or full toe amputations to all digits. We will continue to follow him again while he remains inpatient. Thank you for the consult. We're always happy to help whenever possible. History of Present Illness Reason for Consultation: Right foot Attending Physician: Zak Adrian MD History of Present Illness Patient seen at bedside at lunchtime. States that he has developed this ulceration to his left forefoot over the last few days prior to admission but that is has not improved or worsened. Recently, in the last day or so, he and his RN at bedside state he fell, leading to worsening skin loss. He is scheduled for an arteriogram tomorrow with Dr. Prasad for evaluation of left lower extremity arterial occlusion. He denies any specific systemic signs or symptoms of infection, but has noted the skin sloughing off since stubbing the foot. Otherwise, he admits to longstanding uncontrolled diabetes mellitus but is feeling better since admission. States he has not had other foot concerns in the past and has largely taken care of himself, despite his blood sugar concerns. Allergies Allergy/AdvReac Type Severity Reaction Status Date / Time ceftriaxone Allergy Severe Hives Verified 12/13/24 19:03 Sulfa (Sulfonamide Allergy Intermediate HIVES-ITCHY Verified 12/13/24 19:03 Antibiotics) RASH Home Medications Medication Instructions Recorded Confirmed Type acetaminophen 325 mg tablet 650 mg (2 x 325 mg) PO Q6H PRN 02/18/21 12/13/24 Rx pain #30 tabs rivaroxaban 20 mg tablet (Xarelto) 20 mg PO DAILY #90 tabs 03/24/21 12/13/24 Rx lancets 30 gauge (OneTouch Delica #25 ea 04/27/22 09/12/24 Rx Lancets) ketoconazole 2 % topical cream 1 applic topical UD 01/16/24 12/13/24 History metoprolol tartrate 50 mg tablet 50 mg PO BID 01/16/24 12/13/24 History levetiracetam 500 mg tablet 500 mg PO BID #60 tabs 01/24/24 12/13/24 Rx (Keppra) furosemide 80 mg tablet 80 mg PO QAM #90 tabs 03/27/24 12/13/24 Rx metformin 1,000 mg tablet 1,000 mg PO BID #180 tabs 03/27/24 12/13/24 Rx lisinopril 10 mg tablet 10 mg PO QAM #90 tabs 04/09/24 12/13/24 Rx blood sugar diagnostic (OneTouch #300 ea 06/20/24 09/12/24 Rx Ultra Test strips) blood-glucose meter (Accu-Chek #1 ea 06/20/24 09/12/24 Rx Guide Me Glucose Meter) insulin syringe-needle U-100 0.5 #100 ea 06/20/24 09/12/24 Rx mL 31 gauge x 5/16" insulin syringe-needle U-100 1 mL #300 ea 07/15/24 09/12/24 Rx 31 gauge x 5/16" clotrimazole 1 % topical cream 1 applic topical BID #30 grams 09/12/24 12/13/24 Rx pen needle, diabetic 31 gauge x #200 ea 09/16/24 09/16/24 Rx 1/4" (Comfort EZ Pen [place]) tadalafil 20 mg tablet 20 mg PO DAILY PRN sexual activity 11/14/24 12/13/24 Rx #30 tabs tamsulosin 0.4 mg capsule 0.4 mg PO DAILY #30 caps 11/14/24 12/13/24 Rx lancets (Accu-Chek Softclix #300 ea 11/26/24 11/26/24 Rx Lancets) lancing device with lancets kit #1 ea 11/26/24 11/26/24 Rx (Accu-Chek Softclix Lancing Device+Lancets kit) clopidogrel 75 mg tablet 75 mg PO DAILY #30 tabs 12/05/24 12/13/24 Rx aspirin 81 mg tablet,delayed 81 mg PO DAILY 12/13/24 12/13/24 History release atorvastatin 80 mg tablet 80 mg PO DAILY 12/13/24 12/13/24 History cyanocobalamin (vitamin B-12) 500 1,000 mcg PO QAM 12/13/24 12/13/24 History mcg tablet ergocalciferol (vitamin D2) 1,250 50,000 unit PO WK 12/13/24 12/13/24 History mcg (50,000 unit) capsule insulin aspart U-100 100 unit/mL 0 sliding scale dose subcut TID 12/13/24 12/13/24 History (3 mL) subcutaneous pen (Novolog FlexPen U-100 Insulin aspart) insulin glargine 100 unit/mL (3 10 unit subcut BID 12/13/24 12/13/24 History mL) subcutaneous pen (Lantus Solostar U-100 Insulin) loperamide 2 mg capsule 2 mg PO Q3H PRN Diarrhea 12/13/24 12/13/24 History mupirocin calcium 2 % topical cream 1 applic topical BID PRN SKIN 12/13/24 12/13/24 History IRRIATION nystatin 100,000 unit/gram topical 1 applic topical BID PRN Skin 12/13/24 12/13/24 History powder Irritation oxycodone 5 mg tablet 5 mg PO Q6H PRN Pain 12/13/24 12/13/24 History Patient History Medical History Hypothermia Fracture of cervical vertebra, C6 C5 cervical fracture C2 cervical fracture Status post fall Acute respiratory failure with hypoxia Alcohol intoxication History of DVT (deep vein thrombosis) Complete heart block Hives Supratherapeutic INR On anticoagulant therapy warfarin daily Bradycardia Hyperglobulinemia DVT, lower extremity ? pt denies Surgical History Status post appendectomy History of colonoscopy History of wisdom tooth extraction History of tooth extraction S/P tonsillectomy Family History (Updated 12/14/24 @ 04:38 by Zak Adrian MD) Father , age 48 Coronary heart disease Myocardial infarction Mother , in her 70s COPD (chronic obstructive pulmonary disease) Stroke Family history of diabetes mellitus Diabetes Brother Prostate cancer Coronary heart disease Grandfather (Paternal) Family history of diabetes mellitus Grandmother (Paternal) Family history of diabetes mellitus Other No family history of adverse response to anesthesia Denies family history of Ovarian cancer Breast cancer Colorectal cancer Social History (Updated 12/14/24 @ 04:39 by Zak Adrian MD) Smoking Status: Never smoker Tobacco Type: Smokeless Tobacco (Dip or Chew) Second Hand Exposure: No; Do You Dip or Chew Tobacco: Yes; Hx Alcohol Use: No Hx Substance Use: No Preferred Language: [place] Communication Ability: Effective Visual Impairment: Limited Hearing Ability: Normal Railroad Brakeman Required: No Beliefs That Will Affect Care: None marital status: Life Partner Current Living Situation: Significant Other Current Living Situation Comment: lives in [place] current occupational status: retired and disabled current occupation: [employer] How many Children do You have: 1 Other Information That Helps Us Care for You: No Feels Safe at Home: Yes Safety Concerns: Feels Safe At This Time Childhood Exposure to Second-Hand Smoke: No Diet: diabetic caffeine: Yes Dental Care, Regularly: No Physical Activity Frequency: Does not Exercise Seatbelt Use: always Assistive Devices: Walker Results & Data Vital Signs (Past 12 Hours) Vital Signs Temp Pulse Pulse Resp BP Pulse Ox O2 Del Method 12/14/24 11:22 36.3 C L 64 16 112/66 98 Room Air 12/14/24 07:58 63 12/14/24 07:49 36.3 C L 60 16 112/58 L 97 Room Air 12/14/24 02:19 36.4 C 62 18 104/75 98 Room Air
--- NOTE | 2024-12-14 13:14 | Hospitalist Progress Note ---
Date of Service December 14, 2024 Assessment & Plan (1) Gangrene of left foot: (2) Wound of left foot: (3) Tibial artery occlusion, left: (4) DM (diabetes mellitus), type 2, uncontrolled w/neurologic complication: (5) Hypertension: (6) Status post placement of cardiac pacemaker: (7) Non-proliferative diabetic retinopathy, both eyes: (8) CHRISTIANO (obstructive sleep apnea): (9) Mixed restrictive and obstructive lung disease: (10) Gastroesophageal reflux disease: (11) Atrial flutter: (12) BPH w urinary obs/LUTS: (13) Seizure-like activity: (14) Factor V Leiden mutation: Plan 69yo male with PAD s/p Percutaneous Transluminal Angioplasty/Stenting of LEFT Anterior and Posterior Tibial Arteries as well as Lithotripsy of LEFT Anterior and Posterior Tibial Arteries (12/03/[address] Xander Prasad), uncontrolled T2DM, untreated CHRISTIANO, BPH, h/o atrial flutter, seizure disorder, pacemaker placement in 2021 for complete heart block, diabetic retinopathy, hyperlipidemia, and COPD. He presents to the [facility] ER from [facility] after arriving there earlier this afternoon and was felt not to be an appropriate candidate for their facility. Mr Dodson was hospitalized at [facility] from 12/01/24 to 12/13/24 for wounds, cellulitis, and gangrene of his left foot - particularly the first & 2nd toes. #left foot dry gangrene with great toe/2nd toe ulcerations & wounds - -appreciate consult by Dr Bora Moreno, podiatry -he advises Santyl's to the left great toe, etc for mild chemical debridement; change dressings daily -TMA again recommended by Dr Moreno - pt still declining such, wants to try conservative Rx -surgical shoe with any ambulation -perfusion continues to be adequate on examination #LLE PAD - s/p ant/post tibial artery occlusions s/p revascularization 12/03/24 - -cont plavix -cont Xarelto -cont statin (lipitor 80mg daily) - LDL <100 in September 2024 #uncontrolled T2DM - -lantus BID -novolog SSI -ac/hs BSGs -DM diet -last a1c 13.7% in November -hold metformin for now #CHRISTIANO - -during prior hospitalizations he has refused CPAP #BPH - -cont flomax #HTN - -BPs during prior stay were low or low-normal -BPs still low-normal but fortunately orthostatic BPs today are negative -cont to HOLD lisinopril -cont to use LOWER dose of metoprolol tartrate 25mg BID (From 50mg BID) -HOLD lasix #candidal rash groin/scrotum - -nystatin powder TID #pacemaker status - -tele #h/o seizure disorder or seizure-like activity - -cont keppra 500mg BID #h/o a.flutter, h/o Factor V Leiden mutation - -cont Xarelto #fall - -I agree with patient that diabetic neuropathy likely enhances his fall risk and led to his incident today -fortunately no signs of any injury -he states he hit his head, but I don't see any ecchymoses or signs of trauma to head on exam -[id number] obtained CT head --> negative for ICH -fall precautions #ulcerations on scrotum - -xeroform then ABDs then mesh underwear to hold in place TSH mildly high - repeat level 4-6 weeks as outpatient PT/OT Admission and Anticipated Discharge Date Admission Date: December 13, 2024 Subjective shortly before my visit patient had gotten up from the bed and tried to walk to the bedside chair simply lost his footing and fell felt slightly dizzy/lightheaded with standing "that darn neuropathy" - he blames the neuropathy for his balance issues states he hit the back of his head but denies head pain or pain in any other location seen by podiatry this am - they have advised Santyl's for his left foot; no bedside debridement advised at this time patient still declining TMA of L foot after assessing him and finishing my visit I got called by staff a short time later that he was bleeding from 2 open sores on his scrotum I went back to reassess him 1 more time Review of Systems Review of Systems: gen - eating well; no fevers cv - no cp pulm - no dyspnea GI - no N/V/pain Physical Exam Physical Exam: gen - lying in bed, NAD HENT - MMM, poor dentition neck - no JVD heart - RRR, s1 s2, no murmur lungs - CTA b/l, no rales, no wheeze abd - soft NT ND BS+ ext - pulses right foot 1+, pulses left foot 2+ and well-perfused with cap refill 2 sec left foot skin - dressings intact L foot; I did not remove these this am; erythematous rash in groin, scrotum, upper thighs; scrotum - 2 small ulcerations with blood adhered to them psych - a/o x 3 Results & Data Results & Data Vital Signs (Past 12 Hours) Vital Signs Temp Pulse Pulse Resp BP Pulse Ox O2 Del Method 12/14/24 11:22 36.3 C L 64 16 112/66 98 Room Air 12/14/24 07:58 63 12/14/24 07:49 36.3 C L 60 16 112/58 L 97 Room Air 12/14/24 02:19 36.4 C 62 18 104/75 98 Room Air Laboratory Results Laboratory Results - last 48 hr 12/13/24 12/13/24 12/13/24 22:02 22:13 22:16 WBC 8.28 RBC 4.14 L Hgb 12.1 L Hct 36.6 L MCV 88.4 MCH 29.2 MCHC 33.1 RDW Std Deviation 40.2 RDW Coeff of Morena 12.4 Plt Count 403 H MPV 10.4 Immature Gran % (Auto) 0.4 Neut % (Auto) 72.4 Lymph % (Auto) 18.4 Ray % (Auto) 6.6 Eos % (Auto) 1.7 Baso % (Auto) 0.5 Neut # (Auto) 6.00 Lymph # (Auto) 1.52 Ray # (Auto) 0.55 Eos # (Auto) 0.14 Baso # (Auto) 0.04 Immature Gran # (Auto) 0.03 Sodium 133 L Potassium 4.6 Chloride 95 L Carbon Dioxide 31 Anion Gap 7 BUN 38 H Creatinine 0.88 Est Cr Clr Drug Dosing 98.5 eGFR 93.66 BUN/Creatinine Ratio 43.2 H Glucose 312 H* POC Glucose 348 H* 283 H Calcium 9.3 Magnesium 2.1 Total Bilirubin 0.5 AST 25 ALT 9 Alkaline Phosphatase 93 Total Protein 7.5 Albumin 3.5 Globulin 4.0 Albumin/Globulin Ratio 0.9 TSH 7.100 H Free T4 0.[address] 12/14/24 14:33 EXAM: CT Head Without Intravenous Contrast INDICATION: Trauma TECHNIQUE: Axial computed tomography images of the head/brain without intravenous contrast. Sagittal and/or coronal reformats are provided. Sagittal and coronal reformatted images were created and reviewed. This CT exam was performed using one or more of the following dose reduction techniques: automated exposure control, adjustment of the mA and/or kV according to patient size, and/or use of iterative reconstruction technique. COMPARISON: 12/01/2024 FINDINGS: Limitations: None. Brain and extra-axial spaces: There is age appropriate cortical atrophy and chronic ischemic periventricular white matter hypodensity. No acute infarct, hemorrhage or mass noted. Bones/joints: No acute changes. Soft tissues: No acute abnormality noted. Vasculature: Dense intracranial atherosclerosis noted. Sinuses: No layering fluid in the visualized portions of the paranasal sinuses. Mastoid air cells: No mastoid effusion. Orbits: No acute abnormality noted. IMPRESSION: Cerebral atrophy. No acute changes. ACT 112: N/A Electronically signed by Rachana Rodney 12-14-2024 6:03 PM PG Care Time/CCT Total # of Minutes Spent Total Time Spent with Patient: Total time spent is greater than 50% in coordination of care (as documented) at patient's floor/unit and/or counseling patient: Coding Level of Care Code 97704 SUB INP/OBS CARE 3/50MIN Diagnoses Gangrene of left foot I96 Wound of left foot S91.302A Tibial artery occlusion, left I70.202 DM (diabetes mellitus), type 2, uncontrolled w/neurologic complication E11.49; E11.65 Hypertension I10 Status post placement of cardiac pacemaker Z95.0 Non-proliferative diabetic retinopathy, both eyes E11.3293 CHRISTIANO (obstructive sleep apnea) G47.33 Mixed restrictive and obstructive lung disease J44.9; J98.4 Gastroesophageal reflux disease K21.9 Atrial flutter I48.92 BPH w urinary obs/LUTS N40.1; N13.8 Seizure-like activity R56.9 Factor V Leiden mutation D68.51
--- NOTE | 2024-12-14 14:27 | XCELERA ---
[id number]
[2024-12-14] MEDS: COLLAGENASE OINT 30 GM TUBE EXT SCH (14:43)
--- NOTE | 2024-12-14 18:04 | CT Scan Report ---
EXAM: CT Head Without Intravenous Contrast INDICATION: Trauma TECHNIQUE: Axial computed tomography images of the head/brain without intravenous contrast. Sagittal and/or coronal reformats are provided. Sagittal and coronal reformatted images were created and reviewed. This CT exam was performed using one or more of the following dose reduction techniques: automated exposure control, adjustment of the mA and/or kV according to patient size, and/or use of iterative reconstruction technique. COMPARISON: 12/01/2024 FINDINGS: Limitations: None. Brain and extra-axial spaces: There is age appropriate cortical atrophy and chronic ischemic periventricular white matter hypodensity. No acute infarct, hemorrhage or mass noted. Bones/joints: No acute changes. Soft tissues: No acute abnormality noted. Vasculature: Dense intracranial atherosclerosis noted. Sinuses: No layering fluid in the visualized portions of the paranasal sinuses. Mastoid air cells: No mastoid effusion. Orbits: No acute abnormality noted. IMPRESSION: Cerebral atrophy. No acute changes. ACT 112: N/A Electronically signed by Rachana Rodney 12-14-2024 6:03 PM
[2024-12-14] MEDS: ONDANSETRON INJ 2 MG/ML 2 ML VIAL IV PRN (19:14)
[2024-12-14] MEDS: MELATONIN 3 MG TAB PO PRN (20:37)
[2024-12-15 08:34] LABS: Anion Gap 6.0 (3-11); Blood Urea Nitrogen 19.0 mg/dl (6-23); Calcium 9.3 mg/dl (8.6-10.3); Carbon Dioxide 30.0 mmol/L (21-32); Chloride 102.0 mmol/L (98-107); Creatinine Clr Calc Pharmacy 176.5 ml/min; Glucose 56.0 mg/dl (70-99(Fasting)); Potassium 4.1 mmol/L (3.5-5.1); Sodium 138.0 mmol/L (136-145)
[2024-12-15] MEDS: LANTUS PER UNIT CHARGE SQ SCH (10:27)
--- NOTE | 2024-12-15 20:26 | Hospitalist Progress Note ---
Date of Service December 15, 2024 Assessment & Plan (1) Gangrene of left foot: (2) Wound of left foot: (3) Tibial artery occlusion, left: (4) DM (diabetes mellitus), type 2, uncontrolled w/neurologic complication: (5) Hypertension: (6) Status post placement of cardiac pacemaker: (7) Non-proliferative diabetic retinopathy, both eyes: (8) CHRISTIANO (obstructive sleep apnea): (9) Mixed restrictive and obstructive lung disease: (10) Gastroesophageal reflux disease: (11) Atrial flutter: (12) BPH w urinary obs/LUTS: (13) Seizure-like activity: (14) Factor V Leiden mutation: (15) Foul smelling urine: Plan 69yo male with PAD s/p Percutaneous Transluminal Angioplasty/Stenting of LEFT Anterior and Posterior Tibial Arteries as well as Lithotripsy of LEFT Anterior and Posterior Tibial Arteries (12/03/[address] Xander Prasad), uncontrolled T2DM, untreated CHRISTIANO, BPH, h/o atrial flutter, seizure disorder, pacemaker placement in 2021 for complete heart block, diabetic retinopathy, hyperlipidemia, and COPD. He presents to the [facility] from [facility] after arriving there earlier this afternoon and was felt not to be an appropriate candidate for their facility. Mr Dodson was hospitalized at [facility] from 12/01/24 to 12/13/24 for wounds, cellulitis, and gangrene of his left foot - particularly the first & 2nd toes. #left foot dry gangrene with great toe/2nd toe ulcerations & wounds - -appreciate consult by Dr Bora Moreno, podiatry -he advised Santyl's to the left great toe, etc for mild chemical debridement; change dressings daily -TMA again recommended by Dr Moreno - pt still declining such, wants to try conservative Rx -surgical shoe with any ambulation -perfusion adequate on examination #LLE PAD --> ant/post tibial artery occlusions s/p revascularization 12/03/[address] Prasad - -cont plavix -cont Xarelto -cont statin (lipitor 80mg daily) - LDL <100 in September 2024 #uncontrolled T2DM - -lantus BID -had hypoglycemia today - will lower lantus to b12 units BID -novolog SSI -ac/hs BSGs -DM diet -last a1c 13.7% in November -hold metformin #CHRISTIANO - -during prior hospitalizations he refused CPAP #BPH - -cont flomax #HTN - -BPs during prior stay were low or low-normal -BPs still low-normal but fortunately orthostatic BPs today are negative -cont to HOLD lisinopril -cont to use LOWER dose of metoprolol tartrate 25mg BID (From 50mg BID) -cont to HOLD lasix #candidal rash groin/scrotum - -nystatin powder TID #pacemaker status - -tele #h/o seizure disorder or seizure-like activity - -cont keppra 500mg BID #h/o a.flutter, h/o Factor V Leiden mutation - -cont Xarelto #fall - -12/14 in his hospital room -CT head neg for ICH, fracture, etc. -diabetic neuropathy likely enhances his fall risk -no signs of any injury on exam -fall precautions -orthostatic bps negative #ulcerations on scrotum - -xeroform then ABDs then mesh underwear (or similar) to hold in place #foul-smelling urine - -check u/a and urine cx, r/o UTI TSH mildly high - repeat level 4-6 weeks as outpatient PT/OT back to rehab? home with HH? Admission and Anticipated Discharge Date Admission Date: December 13, 2024 Subjective no further bleeding from his scrotum minimal L foot pain eating well denies any left leg pain no dyspnea no falls or pre-syncope today Review of Systems Review of Systems: cv - no chest pain pulm - no dyspnea or GREEN GI - no abd pain or N/V Physical Exam Physical Exam: gen - lying in bed, NAD, looks well today HENT - MMM, no thrush neck - no JVD heart - RRR, s1 s2, no murmur lungs - CTA b/l, no rales, no wheeze abd - soft NT ND BS+ ext - b/l feet warm, cap refill wnl, pulses 1-2+ b/l feet skin - dressings intact L foot; erythematous rash in groin, scrotal region; no bleeding from scrotum - buried penis, foul-smelling urine coming from his penis Results & Data Results & Data Vital Signs (Past 12 Hours) Vital Signs Temp Pulse Pulse Resp BP Pulse Ox O2 Del Method 12/15/24 19:52 36.9 C 61 16 139/56 L 100 Room Air 12/15/24 15:08 60 12/15/24 14:53 36.5 C 59 L 16 116/61 98 Room Air 12/15/24 10:55 36.6 C 63 16 132/71 98 Room Air Laboratory Results Laboratory Results - last 24 hr 12/15/24 12/15/24 12/15/24 07:25 07:55 08:00 Sodium 138 Potassium 4.1 Chloride 102 Carbon Dioxide 30 Anion Gap 6 BUN 19 Creatinine 0.50 L D Est Cr Clr Drug Dosing 176.5 eGFR 111.10 BUN/Creatinine Ratio 38.0 H Glucose 56 L POC Glucose 61 L* 63 L* Calcium 9.3 12/15/24 12/15/24 12/15/24 10:30 11:44 16:48 Sodium Potassium Chloride Carbon Dioxide Anion Gap BUN Creatinine Est Cr Clr Drug Dosing eGFR BUN/Creatinine Ratio Glucose POC Glucose 238 H 229 H 152 H Calcium PG Care Time/CCT Total # of Minutes Spent Total Time Spent with Patient: Total time spent is greater than 50% in coordination of care (as documented) at patient's floor/unit and/or counseling patient: Coding Level of Care Code 50840 SUB INP/OBS CARE 2/35MIN Diagnoses Gangrene of left foot I96 Wound of left foot S91.302A Tibial artery occlusion, left I70.202 DM (diabetes mellitus), type 2, uncontrolled w/neurologic complication E11.49; E11.65 Hypertension I10 Status post placement of cardiac pacemaker Z95.0 Non-proliferative diabetic retinopathy, both eyes E11.3293 CHRISTIANO (obstructive sleep apnea) G47.33 Mixed restrictive and obstructive lung disease J44.9; J98.4 Gastroesophageal reflux disease K21.9 Atrial flutter I48.92 BPH w urinary obs/LUTS N40.1; N13.8 Seizure-like activity R56.9 Factor V Leiden mutation D68.51 Foul smelling urine R82.90
[2024-12-15 23:07] LABS: Appearance Urine Cloudy (Clear); Bacteria Urine Automated None Seen (None Seen); Cast Urine Automated 0-2 /lpf (0-2); Epithelial Cell Urine Auto 0-2 /hpf (0-2); Glucose Urine UA Negative (Negative); RBC Urine Automated 0-2 /hpf (0-2); WBC Urine Automated >50 /hpf (0-5)
--- NOTE | 2024-12-16 19:24 | Hospitalist Progress Note ---
Date of Service December 16, 2024 Assessment & Plan (1) Gangrene of left foot: (2) Wound of left foot: (3) Tibial artery occlusion, left: (4) DM (diabetes mellitus), type 2, uncontrolled w/neurologic complication: (5) Hypertension: (6) Status post placement of cardiac pacemaker: (7) Non-proliferative diabetic retinopathy, both eyes: (8) CHRISTIANO (obstructive sleep apnea): (9) Mixed restrictive and obstructive lung disease: (10) Gastroesophageal reflux disease: (11) Atrial flutter: (12) BPH w urinary obs/LUTS: (13) Seizure-like activity: (14) Factor V Leiden mutation: (15) Foul smelling urine: Plan 69yo male with PAD s/p Percutaneous Transluminal Angioplasty/Stenting of LEFT Anterior and Posterior Tibial Arteries as well as Lithotripsy of LEFT Anterior and Posterior Tibial Arteries (12/03/[address] Xander Prasad), uncontrolled T2DM, untreated CHRISTIANO, BPH, h/o atrial flutter, seizure disorder, pacemaker placement in 2021 for complete heart block, diabetic retinopathy, hyperlipidemia, and COPD. He presents to the [facility] from [facility] after arriving there earlier this afternoon and was felt not to be an appropriate candidate for their facility. Mr Dodson was hospitalized at [facility] from 12/01/24 to 12/13/24 for wounds, cellulitis, and gangrene of his left foot - particularly the first & 2nd toes. #left foot dry gangrene with great toe/2nd toe ulcerations & wounds - -appreciate consult by Dr Bora Moreno, podiatry -he advised Santyl's to the left great toe, etc for mild chemical debridement; change dressings daily -I will examine the foot tomorrow - his dressings were exchanged just minutes prior to my visit - did not want to disturb the dressings yet again -TMA again recommended by Dr Moreno - pt still declining such, wants to try conservative Rx -surgical shoe with any ambulation -perfusion adequate on examination #LLE PAD --> ant/post tibial artery occlusions s/p revascularization 12/03/[address] Prasad - -cont plavix -cont Xarelto -cont statin (lipitor 80mg daily) - LDL <100 in September 2024 #uncontrolled T2DM - -lantus BID -no further hypoglycemia with lantus reduction -novolog SSI -ac/hs BSGs -DM diet -last a1c 13.7% in November -hold metformin but consider resuming tomorrow #CHRISTIANO - -during prior hospitalizations he refused CPAP #BPH - -cont flomax #HTN - -BPs during prior stay were low or low-normal -BPs still low-normal but fortunately orthostatic BPs today are negative -cont to HOLD lisinopril -cont to use LOWER dose of metoprolol tartrate 25mg BID (From 50mg BID) -cont to HOLD lasix #candidal rash groin/scrotum - -nystatin powder TID #pacemaker status - -tele #h/o seizure disorder or seizure-like activity - -cont keppra 500mg BID #h/o a.flutter, h/o Factor V Leiden mutation - -cont Xarelto #fall - -12/14 in his hospital room -CT head neg for ICH, fracture, etc. -diabetic neuropathy likely enhances his fall risk -no signs of any injury on exam -fall precautions -orthostatic bps negative #ulcerations on scrotum - -no further bleeding -local wound care as needed #foul-smelling urine - -ua with ? UTI; no bacteria on microscopy, but yeast -await culture TSH mildly high - repeat level 4-6 weeks as outpatient PT/OT back to rehab? home with HH? patient wanting latter Admission and Anticipated Discharge Date Admission Date: December 13, 2024 Subjective no events overnight got a shower today he feels so much better following such no change in his foot discomfort no change in how his foot looks scrotal bleeding has NOT recurred eating well wants to go home Review of Systems Review of Systems: gen - no fevers or chills cv - no chest pain pulm - no dyspnea denies any c/o dizziness today Physical Exam Physical Exam: gen - sitting in chair, NAD, looks well today, eating his meal HENT - MMM, no thrush neck - no JVD heart - RRR, s1 s2, no murmur lungs - CTA b/l, no rales, no wheeze abd - soft NT ND BS+ ext - b/l feet warm, no edema, pulses 1-2+ b/l feet skin - dressings intact L foot Results & Data Results & Data Vital Signs (Past 12 Hours) Vital Signs Temp Pulse Pulse Resp BP Pulse Ox O2 Del Method 12/16/24 15:53 63 12/16/24 15:24 36.4 C L 61 16 122/56 L 99 Room Air 12/16/24 11:20 36.6 C 63 16 120/70 98 Room Air 12/16/24 08:23 61 12/16/24 07:54 36.7 C 66 16 95/42 L 98 Room Air Laboratory Results Laboratory Results - last 24 hr 12/15/24 12/15/24 12/16/24 21:18 22:45 08:01 POC Glucose 156 H 163 H Urine Color Yellow Urine Appearance Cloudy A Urine pH 7.0 Ur Specific [place] 1.013 Urine Protein Trace H Urine Glucose (UA) Negative Urine Ketones Negative Urine Blood Trace H Urine Nitrite Negative Urine Bilirubin Negative Urine Urobilinogen Negative Ur Leukocyte Esterase 3+ H Urine WBC (Auto) >50 H Urine RBC (Auto) 0-2 U Hyaline Cast (Auto) 0-2 U Epithel Cells (Auto) 0-2 Urine Bacteria (Auto) None Seen Urine Yeast Present A 12/16/24 12/16/24 11:56 16:43 POC Glucose 161 H 121 H Urine Color Urine Appearance Urine pH Ur Specific [place] Urine Protein Urine Glucose (UA) Urine Ketones Urine Blood Urine Nitrite Urine Bilirubin Urine Urobilinogen Ur Leukocyte Esterase Urine WBC (Auto) Urine RBC (Auto) U Hyaline Cast (Auto) U Epithel Cells (Auto) Urine Bacteria (Auto) Urine Yeast PG Care Time/CCT Total # of Minutes Spent Total Time Spent with Patient: Total time spent is greater than 50% in coordination of care (as documented) at patient's floor/unit and/or counseling patient: Coding Level of Care Code 25472 SUB INP/OBS CARE 2/35MIN Diagnoses Gangrene of left foot I96 Wound of left foot S91.302A Tibial artery occlusion, left I70.202 DM (diabetes mellitus), type 2, uncontrolled w/neurologic complication E11.49; E11.65 Hypertension I10 Status post placement of cardiac pacemaker Z95.0 Non-proliferative diabetic retinopathy, both eyes E11.3293 CHRISTIANO (obstructive sleep apnea) G47.33 Mixed restrictive and obstructive lung disease J44.9; J98.4 Gastroesophageal reflux disease K21.9 Atrial flutter I48.92 BPH w urinary obs/LUTS N40.1; N13.8 Seizure-like activity R56.9 Factor V Leiden mutation D68.51 Foul smelling urine R82.90
--- NOTE | 2024-12-16 21:37 | Podiatry Progress Note ---
Date of Service December 16, 2024 Assessment & Plan (1) Wound of left foot: (2) Gangrene of left foot: (3) Cellulitis: (4) Peripheral arterial disease: (5) Cellulitis of left foot: (6) Tibial artery occlusion, left: (7) DM (diabetes mellitus), type 2, uncontrolled w/neurologic complication: (8) Other specified peripheral vascular diseases: (9) Chronic ulcer of left foot limited to breakdown of skin: Plan Patient examined and evaluated. - Patient will require amputation at some point, whether partial amputations of toes 1-5 versus more definitive transmetatarsal amputation - With proximal nature of wound surrounding the great toe, TMA is certainly more beneficial. - For now, he still would like to avoid surgery; he vacillates between joking about surgery and being overly serious regarding not losing toes. - Would recommend santyl still, for enzymatic debridement in order to prevent damage from sharp debridement - Whenever he is stable, he can be d/c from our end. Will follow-up and monitor on a regular basis outpatient. - Maybe more amenable to surgical intervention in the outpatient setting? Admission and Anticipated Discharge Date Admission Date: December 13, 2024 Subjective Patient seen at bedside at lunchtime. Resting comfortably. No new concerns over the weekend. Has had dressing changes with Santyl. Chart reviewed. Physical Exam Physical Exam: Left lower extremity focused exam: DP/PT pulses non-palpable. CFT brisk to the digits Proximally, though the leading edge of all toes at this point is necrotic and nonviable. There is no evidence of wet gangrene though increasing demarcation, consistent with this dry gangrenous change is appreciated to the Forefoot. No evidence of cellulitis or deeper osteomyelitis is appreciated. Constitutional: WD/WN, vitals as above + ill appearing, + morbidly obese, + obese and + lethargic; no acute distress Eyes: PERRL, conjunctivae normal, anicteric sclerae ENMT: external ear and nose normal, oropharynx normal Mouth: + poor dentition Neck: trachea midline, no thyromegaly normal visual inspection Respiratory: normal respiratory effort; no respiratory distress Cardiovascular: Rate/Rhythm: regular rate and regular rhythm Vessels: + posterior tibial pulses abnormal and + dorsalis pedis pulses abnormal Chest (Breasts): Chest: normal inspection of chest Gastrointestinal (Abdomen): Inspection/Auscultation: abdomen normal to inspection Percussion/Palpation: + abdomen tender and abdomen soft Musculoskeletal: no cyanosis or clubbing, extremities motor strength 5/5 Head/Neck/Chest: normocephalic and head atraumatic Extremities: extremities normal to inspection Skin: + ulcer, + wound, + skin atrophy, + esch ar and + nails dystrophic Neurologic: awake; no focal motor deficits Psychiatric: A+Ox3, euthymic affect Results & Data Results & Data Vital Signs (Past 12 Hours) Vital Signs Temp Pulse Pulse Resp BP Pulse Ox O2 Del Method 12/16/24 21:19 36.8 C 69 16 119/66 97 Room Air 12/16/24 19:55 Room Air 12/16/24 15:53 63 12/16/24 15:24 36.4 C L 61 16 122/56 L 99 Room Air 12/16/24 11:20 36.6 C 63 16 120/70 98 Room Air (3) Cellulitis Laterality: left Site of cellulitis: extremity Site of cellulitis of extremity: lower extremity Qualified Code(s): L03.116 - Cellulitis of left lower limb
[2024-12-17 07:06] LABS: Anion Gap 6.0 (3-11); Blood Urea Nitrogen 21.0 mg/dl (6-23); Calcium 8.7 mg/dl (8.6-10.3); Carbon Dioxide 29.0 mmol/L (21-32); Chloride 100.0 mmol/L (98-107); Creatinine Clr Calc Pharmacy 154.6 ml/min; Glucose 267.0 mg/dl (70-99(Fasting)); Potassium 4.3 mmol/L (3.5-5.1); Sodium 135.0 mmol/L (136-145)
[2024-12-17 08:18] LABS: Folate (Folic Acid),Ser orPlas 5.88 ng/ml (>5.38)
[2024-12-17 08:19] LABS: Vitamin B12 300.0 pg/ml (180-914)
[2024-12-17] MEDS: FOLIC ACID 1 MG TAB PO SCH (10:16)
--- NOTE | 2024-12-17 20:21 | Hospitalist Progress Note ---
Date of Service December 17, 2024 Assessment & Plan (1) Gangrene of left foot: (2) Wound of left foot: (3) Tibial artery occlusion, left: (4) DM (diabetes mellitus), type 2, uncontrolled w/neurologic complication: (5) Hypertension: (6) Status post placement of cardiac pacemaker: (7) Non-proliferative diabetic retinopathy, both eyes: (8) CHRISTIANO (obstructive sleep apnea): (9) Mixed restrictive and obstructive lung disease: (10) Gastroesophageal reflux disease: (11) Atrial flutter: (12) BPH w urinary obs/LUTS: (13) Seizure-like activity: (14) Factor V Leiden mutation: (15) Foul smelling urine: (16) B12 deficiency: Plan 69yo male with PAD s/p Percutaneous Transluminal Angioplasty/Stenting of LEFT Anterior and Posterior Tibial Arteries as well as Lithotripsy of LEFT Anterior and Posterior Tibial Arteries (12/03/[address] Xander Prasad), uncontrolled T2DM, untreated CHRISTIANO, BPH, h/o atrial flutter, seizure disorder, pacemaker placement in 2021 for complete heart block, diabetic retinopathy, hyperlipidemia, and COPD. He presents to the [facility] from [facility] after arriving there earlier this afternoon and was felt not to be an appropriate candidate for their facility. Mr Dodson was hospitalized at [facility] from 12/01/24 to 12/13/24 for wounds, cellulitis, and gangrene of his left foot - particularly the first & 2nd toes. #left foot dry gangrene with great toe/2nd toe ulcerations & wounds - -appreciate consult by Dr Bora Moreno, podiatry -he advised Santyl's to the left great toe, etc for mild chemical debridement; change dressings daily -see updated photos from today -devitalized skin on great toe has improved with Santyl's -no cellulitis of the foot; no foul odor of foot -TMA again recommended by Dr Moreno - pt still declining such, wants to try conservative Rx -surgical shoe with any ambulation -perfusion adequate on examination #LLE PAD --> ant/post tibial artery occlusions s/p revascularization 12/03/[address] Prasad - -cont plavix -cont Xarelto -cont statin (lipitor 80mg daily) - LDL <100 in September 2024 #uncontrolled T2DM - -lantus BID -novolog SSI -ac/hs BSGs -DM diet -last a1c 13.7% in November -hold metformin but consider resuming tomorrow #CHRISTIANO - -during prior hospitalizations he refused CPAP #BPH - -cont flomax #HTN - -BPs during prior stay were low or low-normal -BPs still low-normal this admission; fortunately orthostatic BPs - negative -cont to HOLD lisinopril -cont to use LOWER dose of metoprolol tartrate 25mg BID (From 50mg BID) -cont to HOLD lasix #candidal rash groin/scrotum - -nystatin powder TID -improving #pacemaker status #h/o seizure disorder or seizure-like activity - -cont keppra 500mg BID #h/o a.flutter, h/o Factor V Leiden mutation - -cont Xarelto #fall - -12/14 in his hospital room -CT head neg for ICH, fracture, etc. -diabetic neuropathy likely enhances his fall risk -no signs of any injury on exam -fall precautions -orthostatic bps negative #ulcerations on scrotum - -no further bleeding -local wound care as needed #foul-smelling urine - -ua with ? UTI; no bacteria on microscopy, but yeast -culture was negative #anemia - h/o B12 deficiency - -B12 level 300 -- cont supplementation, B12 1000mcg daily -folate level borderline low at 5.88 - start folic acid 1mg daily TSH mildly high - repeat level 4-6 weeks as outpatient cont PT/OT dispo - SNF for rehab I have considerable concern about pt's ability to care for the left foot at his home Admission and Anticipated Discharge Date Admission Date: December 13, 2024 Subjective no events today pt's significant other visited he had voiced he wants to go home, but today he did state he is agreeable to going to SNF I removed his left foot dressings during my visit - verbal permission obtained from patient to take photos of foot - using [employer] mohsen took photos (see photos in this note) eating well drinking well no falls Review of Systems 2 Review of Systems: gen - no fevers or chills cv - no chest pain pulm - no dyspnea or GREEN GI - no diarrhea - no further scrotal bleeding Physical Exam 2 Physical Exam: gen - sitting on side of bed, NAD, looks well HENT - MMM, no thrush neck - no JVD heart - RRR, s1 s2, no murmur lungs - CTA b/l, no rales, no wheeze abd - soft NT ND BS+ ext - b/l feet warm, no edema, pulses 1-2+ b/l feet skin - dressings intact L foot; I removed the dressings - photos taken - see below; previous devitalized skin on great toe improved s/p Santyl's last few days Results & Data Results & Data Vital Signs (Past 12 Hours) Vital Signs Temp Pulse Resp BP Pulse Ox O2 Del Method 12/17/24 15:11 36.6 C 62 16 104/49 L 92 Room Air Laboratory Results Laboratory Results - last 48 hr 12/16/24 12/16/24 12/16/24 11:56 16:43 20:14 Sodium Potassium Chloride Carbon Dioxide Anion Gap BUN Creatinine Est Cr Clr Drug Dosing eGFR BUN/Creatinine Ratio Glucose POC Glucose 161 H 121 H 147 H Calcium Vitamin B12 Folate 12/17/24 12/17/24 12/17/24 06:32 06:36 07:48 Sodium 135 L Potassium 4.3 Chloride 100 Carbon Dioxide 29 Anion Gap 6 BUN 21 Creatinine 0.57 L Est Cr Clr Drug Dosing 154.6 eGFR 106.79 BUN/Creatinine Ratio 36.8 H Glucose 267 H POC Glucose 277 H Calcium 8.7 Vitamin B12 300 Folate 5.88 Diagnostic Findings PG Care Time/CCT Total # of Minutes Spent Total Time Spent with Patient: Total time spent is greater than 50% in coordination of care (as documented) at patient's floor/unit and/or counseling patient: Coding Level of Care Code 93273 SUB INP/OBS CARE 2/35MIN Diagnoses Gangrene of left foot I96 Wound of left foot S91.302A Tibial artery occlusion, left I70.202 DM (diabetes mellitus), type 2, uncontrolled w/neurologic complication E11.49; E11.65 Hypertension I10 Status post placement of cardiac pacemaker Z95.0 Non-proliferative diabetic retinopathy, both eyes E11.3293 CHRISTIANO (obstructive sleep apnea) G47.33 Mixed restrictive and obstructive lung disease J44.9; J98.4 Gastroesophageal reflux disease K21.9 Atrial flutter I48.92 BPH w urinary obs/LUTS N40.1; N13.8 Seizure-like activity R56.9 Factor V Leiden mutation D68.51 Foul smelling urine R82.90 B12 deficiency E53.8
--- NOTE | 2024-12-17 22:29 | Podiatry Progress Note ---
Date of Service December 17, 2024 Assessment & Plan (1) Wound of left foot: (2) Gangrene of left foot: (3) Cellulitis: (4) Peripheral arterial disease: (5) Cellulitis of left foot: (6) Tibial artery occlusion, left: (7) DM (diabetes mellitus), type 2, uncontrolled w/neurologic complication: (8) Other specified peripheral vascular diseases: (9) Chronic ulcer of left foot limited to breakdown of skin: Plan Patient examined and evaluated. - Patient will require amputation at some point, whether partial amputations of toes 1-5 versus more definitive transmetatarsal amputation - With proximal nature of wound surrounding the great toe, TMA is certainly more beneficial. - For now, he still would like to avoid surgery. - Would recommend sharonyl for enzymatic debridement in order to prevent damage from sharp debridement. This was reapplied by me today with DSD. - Whenever he is stable, he can be d/c from our end. Will follow-up and monitor on a regular basis outpatient. Admission and Anticipated Discharge Date Admission Date: December 13, 2024 Subjective Patient seen at bedside at lunchtime. States his foot feels good and is trying to go home. States his partner is coming to see if she can tolerate performing wound care for him. Physical Exam Physical Exam: Left lower extremity focused exam: DP/PT pulses non-palpable. CFT brisk to the digits Proximally, though the distal aspect of all toes at this point is necrotic and nonviable. There is no evidence of wet gangrene though increasing demarcation, consistent with this dry gangrenous change is appreciated to the Forefoot. No evidence of cellulitis or deeper osteomyelitis is appreciated. Constitutional: WD/WN, vitals as above + ill appearing, + morbidly obese, + obese and + lethargic; no acute distress Eyes: PERRL, conjunctivae normal, anicteric sclerae ENMT: external ear and nose normal, oropharynx normal Mouth: + poor dentition Neck: trachea midline, no thyromegaly normal visual inspection Respiratory: normal respiratory effort; no respiratory distress Cardiovascular: Rate/Rhythm: regular rate and regular rhythm Vessels: + posterior tibial pulses abnormal and + dorsalis pedis pulses abnormal Chest (Breasts): Chest: normal inspection of chest Gastrointestinal (Abdomen): Inspection/Auscultation: abdomen normal to inspection Percussion/Palpation: + abdomen tender and abdomen soft Musculoskeletal: no cyanosis or clubbing, extremities motor strength 5/5 Head/Neck/Chest: normocephalic and head atraumatic Extremities: extremities normal to inspection Skin: + ulcer, + wound, + skin atrophy, + esch ar and + nails dystrophic Neurologic: awake; no focal motor deficits Psychiatric: A+Ox3, euthymic affect Results & Data Results & Data Vital Signs (Past 12 Hours) Vital Signs Temp Pulse Resp BP Pulse Ox O2 Del Method 12/17/24 15:11 36.6 C 62 16 104/49 L 92 Room Air (3) Cellulitis Laterality: left Site of cellulitis: extremity Site of cellulitis of extremity: lower extremity Qualified Code(s): L03.116 - Cellulitis of left lower limb
[2024-12-17 23:39] VITALS: PULSE 60
[2024-12-18 07:18] VITALS: BP 101/50; RESP 16; TEMP 98.1; O2SAT 98
--- NOTE | 2024-12-18 14:55 | Discharge Summary ---
Discharge Summary Date of Service December 18, 2024 Principal Dx & Hospital Course #1 = Principal Diagnosis (1) Gangrene of left foot: (2) Wound of left foot: (3) Tibial artery occlusion, left: (4) DM (diabetes mellitus), type 2, uncontrolled w/neurologic complication: (5) Hypertension: (6) Status post placement of cardiac pacemaker: (7) Non-proliferative diabetic retinopathy, both eyes: (8) CHRISTIANO (obstructive sleep apnea): (9) Mixed restrictive and obstructive lung disease: (10) Gastroesophageal reflux disease: (11) Atrial flutter: (12) BPH w urinary obs/LUTS: (13) Seizure-like activity: (14) Factor V Leiden mutation: (15) Foul smelling urine: (16) B12 deficiency: Plan 69yo male with PAD s/p Percutaneous Transluminal Angioplasty/Stenting of LEFT Anterior and Posterior Tibial Arteries as well as Lithotripsy of LEFT Anterior and Posterior Tibial Arteries (12/03/[address] Xander Prasad), uncontrolled T2DM, untreated CHRISTIANO, BPH, h/o atrial flutter, seizure disorder, pacemaker placement in 2021 for complete heart block, diabetic retinopathy, hyperlipidemia, and COPD. He presents to the [facility] from [facility] after arriving there earlier this afternoon and was felt not to be an appropriate candidate for their facility. Mr Dodson was hospitalized at [facility] from 12/01/24 to 12/13/24 for wounds, cellulitis, and gangrene of his left foot - particularly the first & 2nd toes. #left foot dry gangrene with great toe/2nd toe ulcerations & wounds - -appreciate consult by Dr Bora Moreno, podiatry -he advised Santyl's to the left great toe, etc for mild chemical debridement; change dressings daily -see updated photos from today -devitalized skin on great toe has improved with Santyl's -no cellulitis of the foot; no foul odor of foot -TMA again recommended by Dr Moreno - pt still declining such, wants to try conservative Rx -surgical shoe with any ambulation -perfusion adequate on examination Patient will go to SNF and understands risks of conservative management failing #LLE PAD --> ant/post tibial artery occlusions s/p revascularization 12/03/[address] Prasad - -cont plavix -cont Xarelto -cont statin (lipitor 80mg daily) - LDL <100 in September 2024 #uncontrolled T2DM - -lantus BID -novolog SSI -ac/hs BSGs -DM diet -last a1c 13.7% in November #CHRISTIANO - -during prior hospitalizations he refused CPAP #BPH - -cont flomax #HTN - -BPs during prior stay were low or low-normal -BPs still low-normal this admission; fortunately orthostatic BPs - negative -cont to HOLD lisinopril -cont to use LOWER dose of metoprolol tartrate 25mg BID (From 50mg BID) -cont to HOLD lasix #candidal rash groin/scrotum - -nystatin powder TID -improving #pacemaker status #h/o seizure disorder or seizure-like activity - -cont keppra 500mg BID #h/o a.flutter, h/o Factor V Leiden mutation - -cont Xarelto #fall - -12/14 in his hospital room -CT head neg for ICH, fracture, etc. -diabetic neuropathy likely enhances his fall risk -no signs of any injury on exam -fall precautions -orthostatic bps negative #ulcerations on scrotum - -no further bleeding -local wound care as needed #foul-smelling urine - -ua with ? UTI; no bacteria on microscopy, but yeast -culture was negative #anemia - h/o B12 deficiency - -B12 level 300 -- cont supplementation, B12 1000mcg daily -folate level borderline low at 5.88 - start folic acid 1mg daily TSH mildly high - repeat level 4-6 weeks as outpatient Admission HPI Per Admitting Provider 69yo male with PAD s/p Percutaneous Transluminal Angioplasty/Stenting of LEFT Anterior and Posterior Tibial Arteries as well as Lithotripsy of LEFT Anterior and Posterior Tibial Arteries (12/03/[address] Xander Prasad), uncontrolled T2DM, untreated CHRISTIANO, BPH, h/o atrial flutter, seizure disorder, pacemaker placement in 2021 for complete heart block, diabetic retinopathy, hyperlipidemia, and COPD. He presents to the [facility] from [facility] after arriving there earlier this afternoon and was felt not to be an appropriate candidate for their facility. Mr Dodson was hospitalized at [facility] from 12/01/24 to 12/13/24 for wounds, cellulitis, and gangrene of his left foot - particularly the first & 2nd toes. He underwent arterial studies showing significant anterior/posterior tibial artery occlusions in the left leg and underwent revascularization of the LLE with Dr Prasad as noted above. He was also seen by Dr Bora Moreno, podiatry, for his left foot wounds & dry gangrene. Dr Moreno was heavily concerned that Mr Dodson would ultimately need TMA of the left foot but Mr Dodson was reluctant to pursue such. Mr Dodson was d/c to [facility] today for ongoing wound care and to obtain acute rehab. Again, upon arrival to their facility, it was felt that Mr Dodson was not appropriate for their facility. During my admission assessment he reports feeling cold, is hungry, and asks for pain medicine for his right foot pain. Discharge Exam gen - sitting on side of bed, NAD, looks well HENT - MMM, no thrush neck - no JVD heart - RRR, s1 s2, no murmur lungs - CTA b/l, no rales, no wheeze abd - soft NT ND BS+ ext - b/l feet warm, no edema, pulses 1-2+ b/l feet skin - dressings intact L foot; Discharge Plan Discharge Items Patient Disposition: Transfer Custodial Fac Reason For Visit: RIGHT FOOT WOUND/DRY GANGRENE Discharge Diagnosis: right foot wound, dry gangrene Condition on Discharge: Fair Activity: As commented below Activity Comment: per PT Non-emergency contact: Primary Care Provider Call non-emergency contact if: you have any medication questions Follow-up/Referrals: Joe Nevarez MD [Primary Care Provider] - Diet: Carb Consistent or DM2 and Heart Healthy Addtl Attending Provider Instructions: 1. See your PCP Dr. Joe Nevarez within 5-7 days of hospital discharge for routine follow up visit. 2. See your Vascular Surgeon Dr. Mamadou Prasad within 5-7 days of hospital discharge for routine follow up visit after undergoing percutaneous Transluminal Angioplasty and Stenting of Anterior and Posterior Tibial Artery, Lithotripsy of Anterior and Posterior Tibial Artery, Mechanical Closure and Ultrasound Guidance of Right Common Femoral Artery, 12/03/2024, 8:00am ([facility] Vascular Surgeon Dr. Mamadou Prasad) to treat chronic left tibial artery occlusion. 3. See your Over[employer] Gar[employer] Door Hanger Dr. Bora Moreno within 5-7 days of hospital discharge for routine follow up visit of left foot bullae (ruptured, no discharge (sanguineous, serous, suppurative) @ 1st and 2nd PIP and DIP joints. Addtl Oil Expeller Provider Instructions: You will require amputation at some point, whether partial amputations of toes 1-5 versus more definitive transmetatarsal amputation - With proximal nature of wound surrounding the great toe, TMA is certainly more beneficial. - For now, you are refusing surgery. - recommend santyl for enzymatic debridement in order to prevent damage from sharp debridement. Pending Studies at Discharge: No Stand-Alone Forms: My [facility] Skilled Items Patient informed of condition?: Yes DNR: No Discharge Level of Care: Skilled Communicable Disease: No Discharge Prognosis: Stable Lines: None Urinary Catheter: No Medications and DC Order Prescriptions: New Santyl 250 unit/gram ointment 1 applic topical DAILY Qty: 30 0RF Rx Instructions: until debridement of necrotic tissue is complete and granulation tissue is well established. Continued (DME) lancets [OneTouch Delica Lancets] 30 gauge misc See Dose Instructions .ROUTE .MEDSUPPLY Qty: 25 0RF Dose Instruction: As directed Rx Instructions: As directed (DME) insulin syringe-needle U-100 0.5 mL 31 gauge x 5/16" syringe See Rx Instructions .Route Qty: 100 0RF Rx Instructions: As directed (DME) blood-glucose meter [Accu-Chek Guide [facility] Glucose Mtr] [facility] See Rx Instructions .Route Qty: 1 0RF Rx Instructions: As directed (DME) OneTouch Ultra Test Strip See Rx Instructions .Route Qty: 300 3RF Rx Instructions: TEST 3 TIMES DAILY; DX CODE E11.65 (DME) insulin syringe-needle U-100 1 mL 31 gauge x 5/16 syringe See Rx Instructions .ROUTE .MEDSUPPLY Qty: 300 3RF Rx Instructions: USE 3 TIMES DAILY; DX CODE- E11.49, E11.65 (DME) pen needle, diabetic [Comfort EZ Pen [place]] 31 gauge x 1/4" needle See Rx Instructions .Route Qty: 200 8RF Rx Instructions: Inject 4 times daily (DME) lancets [Accu-Chek Softclix Lancets] Misc See Rx Instructions .Route Qty: 300 3RF Rx Instructions: test blood sugars three times daily (DME) lancing device with lancets [Accu-Chek Soft Dev Lancets] Kit See Rx Instructions .Route Qty: 1 0RF Rx Instructions: check glucose 3 times clotrimazole 1 % cream 1 applic topical BID Qty: 30 0RF Rx Instructions: NOT GIVEN WHILE IN HOSPITAL ketoconazole 2 % cream 1 applic topical UD Rx Instructions: 1 mohsen topical daily. no fill history available Apply to groin folds daily for 3 weeks for intertrigo nystatin 100,000 unit/gram Powder 1 applic TOPICAL BID PRN (Reason: Skin Irritation) cyanocobalamin (vitamin B-12) 500 mcg tablet 1,000 mcg PO QAM mupirocin calcium 2 % cream 1 applic topical BID PRN (Reason: SKIN IRRIATION) ergocalciferol (vitamin D2) 1,250 mcg (50,000 unit) capsule 50,000 unit PO WK Rx Instructions: SUNDAYS insulin aspart U-100 [Novolog FlexPen U-100 Insulin] 100 unit/mL (3 mL) insulin pen 0 sliding scale dose subcut TID MDD 60 insulin glargine [Lantus Solostar U-100 Insulin] 100 unit/mL (3 mL) insulin pen 10 unit subcut BID MDD 70 atorvastatin 80 mg Tablet 80 mg PO DAILY Qty: 30 0RF acetaminophen 325 mg Tablet 650 mg PO Q6H PRN (Reason: pain) Qty: 30 0RF levetiracetam [Keppra] 500 mg Tablet 500 mg PO BID Qty: 60 0RF clopidogrel 75 mg tablet 75 mg PO DAILY Qty: 30 6RF tamsulosin 0.4 mg capsule 0.4 mg PO DAILY Qty: 30 2RF metformin 1,000 mg tablet 1,000 mg PO BID Qty: 180 3RF Rx Instructions: WAS NOT GIVEN WHILE IN HOSPITAL oxycodone 5 mg Tablet 5 mg PO Q6H PRN (Reason: Pain) Qty: 10 0RF tadalafil 20 mg tablet 20 mg PO DAILY PRN (Reason: sexual activity) Qty: 30 2RF Rx Instructions: administer approximately 30min before sexual activity; do not use more than 1 dose per 24hrs Xarelto 20 mg tablet 20 mg PO DAILY Qty: 90 3RF Changed metoprolol tartrate 50 mg tablet 25 mg PO BID Qty: 60 0RF Rx Instructions: WAS DISCONTINED WHILE IN HOSPITAL. Held furosemide 80 mg tablet 80 mg PO QAM Qty: 90 3RF Hold Instructions: Provider's Order Rx Instructions: NOT GIVEN WHILE IN HOSPITAL lisinopril 10 mg tablet 10 mg PO QAM Qty: 90 3RF Hold Instructions: Provider's Order loperamide 2 mg Capsule 2 mg PO Q3H PRN (Reason: Diarrhea) Hold Instructions: Provider's Order Discontinued aspirin 81 mg Tablet,Delayed Release (Dr/Ec) 81 mg PO DAILY Rx Instructions: NOT GIVEN WHILE IN HOSPITAL Discharge Orders: Discharge Order (Routine); Ordered 12/18/24 Ordered By: Emeka Gustafson Admission Data Admit Date/Time: 12/13/24 19:53 Attending Provider: Emeka Gustafson Admit Provider: Zak Adrian Primary Care Provider: Joe Nevarez Other Providers: Bora Moreno; Elia Gomez Other Interventions: Discharge Summary Assessment (RN) Last Done: 12/18/24 15:27 Hospital Stay Data Consultations 12/13/24 18:21 ED Decision to Admit Stat 12/13/24 19:58 Consult Podiatry Routine Diagnostic Imagining Performed 12/14/24 14:[address] [CT head/brain wo con] Urgent Pending Results Patient Have Any Pending Studies at Discharge: No Discharge Instructions Given to Patient (Per Discharging Provider) 1. See your PCP Dr. Joe Nevarez within 5-7 days of hospital discharge for routine follow up visit. 2. See your Vascular Surgeon Dr. Mamadou Prasad within 5-7 days of hospital discharge for routine follow up visit after undergoing percutaneous Transluminal Angioplasty and Stenting of Anterior and Posterior Tibial Artery, Lithotripsy of Anterior and Posterior Tibial Artery, Mechanical Closure and Ultrasound Guidance of Right Common Femoral Artery, 12/03/2024, 8:00am ([facility] Vascular Surgeon Dr. Mamadou Prasad) to treat chronic left tibial artery occlusion. 3. See your Overhead Gar[employer] Door Hanger Dr. Bora Moreno within 5-7 days of hospital di scharge for routine follow up visit of left foot bullae (ruptured, no discharge (sanguineous, serous, suppurative) @ 1st and 2nd PIP and DIP joints. Total Time Total Time Spent Total Time Spent (In Minutes): 35 Coding Level of Care Code 33913 INP/OBS DISCH >30 MIN Diagnoses Gangrene of left foot I96 Wound of left foot S91.302A Tibial artery occlusion, left I70.202 DM (diabetes mellitus), type 2, uncontrolled w/neurologic complication E11.49; E11.65 Hypertension I10 Status post placement of cardiac pacemaker Z95.0 Non-proliferative diabetic retinopathy, both eyes E11.3293 CHRISTIANO (obstructive sleep apnea) G47.33 Mixed restrictive and obstructive lung disease J44.9; J98.4 Gastroesophageal reflux disease K21.9 Atrial flutter I48.92 BPH w urinary obs/LUTS N40.1; N13.8 Seizure-like activity R56.9 Factor V Leiden mutation D68.51 Foul smelling urine R82.90 B12 deficiency E53.8
== END 2024-12-18 15:46 | DRG 300 ==
LOC: ED 16:02 → SUATTDRO 19:53 → INTOOBSV 19:53 → 2N 19:53 → 3E 12-16 21:18